=== PATIENT | male | born 1945 | race Caucasian/White ===

== ENCOUNTER 2023-03-26 17:45 | Inpatient (IN) | payer MEDICARE, SELFPAY ==
--- NOTE | ~2023-03-26 | US_ITS ---
EXAMINATION: US VENOUS ULTRASOUND WITH DOPPLER LOWER EXTREMITY, BILATERAL CLINICAL INFORMATION: Bilateral lower extremity edema. COMPARISON: None available. TECHNIQUE: Ultrasound of the deep veins is performed from the hip to the calf with compression sonography and color and pulse Doppler assessment. Spectral analysis with color-flow imaging is performed. FINDINGS: RIGHT: There is normal venous compression and respiratory variation and augmented flow. The visualized common femoral vein, superficial femoral vein, profunda femoral vein, popliteal vein, and the trifurcation region shows no evidence of deep venous thrombosis. There is no significant popliteal fossa cyst. LEFT: There is normal venous compression and respiratory variation and augmented flow. The visualized common femoral vein, superficial femoral vein, profunda femoral vein, popliteal vein, and the trifurcation region shows no evidence of deep venous thrombosis. There is no significant popliteal fossa cyst. If the patient's symptoms persist, followup ultrasound in 5 days 7 days might be of value to exclude proximal propagation from a non-visualized calf vein. US/US venous duplex LE BI IMPRESSION: No DVT demonstrated in the bilateral lower extremities.
--- NOTE | ~2023-03-26 | XR_ITS ---
EXAMINATION: XR CHEST CLINICAL INFORMATION: Shortness of breath COMPARISON: None available. TECHNIQUE: Frontal view of the chest was obtained. FINDINGS: The heart is enlarged. There is no gross evidence of CHF. There is increased density in the retrocardiac region which could represent an infiltrate. A small left effusion could be present. The film is technically suboptimal. When the patient is stable, a PA and lateral film would be of value. XR/XR chest 1V IMPRESSION: 1. Cardiomegaly. 2. Retrocardiac density which could represent an infiltrate. PA and lateral film would be of value when the patient is stable.
[2023-03-26 17:50] VITALS: BP 170/76; BP 177/70; PULSE 72; PULSE 78; RESP 20; TEMP 36.7; O2SAT 96; O2SAT 98; BMI 45.8
--- NOTE | 2023-03-26 18:01 | ECG_ITS ---
Test Reason : LOWER EXTRMITY SWELLING Blood Pressure : / mmHG Vent. Rate : 072 BPM Atrial Rate : 000 BPM P-R Int : 000 ms QRS Dur : 098 ms QT Int : 400 ms P-R-T Axes : 000 007 009 degrees QTc Int : 438 ms Sinus with very long DE interval Low voltage QRS Cannot rule out Anterior infarct , age undetermined Abnormal ECG No previous ECGs available Referred By: Anupama Kan Electronically Signed By:ANTWON SAVAGE
--- NOTE | 2023-03-26 18:01 | ED_ITS ---
HPI - General Adult General Chief complaint: Wound/Laceration Stated complaint: COVID, open sore on L ankle Time Seen by Provider: 03/26/23 17:52 Source: patient, EMS, RN notes reviewed and old records reviewed Mode of arrival: EMS History of Present Illness HPI narrative: 78-year-old male with a past medical history of diabetes, cauda equina, HTN, CHF, COPD, AFib on Eliquis, COVID-19 positive 6 days ago, presenting to the ED via EMS complaining of acute on chronic bilateral LE edema/swelling and open wounds worsening over the past 3 days. Admits to swelling x years. Also reports SOB. Most history obtained from who reports patient has been generally weak/fatigued with difficulty ambulating secondary to LE swelling/weakness over the past few days. Also reports they self stopped Bumex over the past 2 weeks due to patient's urinary frequency. Denies chest pain, abdominal pain, nausea/vomiting, fever/chills. Patient is poor historian Onset (ago): day(s) Related Data Allergies Allergy/AdvReac Type Severity Reaction Status Date / Time No Known Allergies Allergy Verified 03/26/23 17:50 Review of Systems 2 Review of Systems: Constitutional: No Fever, No Chills, No Fatigue, No Malaise ENT/Mouth: No Ear Pain, No Nasal Congestion, No sore throat, No Rhinorrhea, No Swallowing Difficulty Cardiovascular: No Chest Pain, +SOB, + Edema, No Palpitations Respiratory: + Cough, No Wheezing, + Dyspnea Gastrointestinal: No Nausea, No Vomiting, No Abdominal pain Musculoskeletal: No joint pain, No Myalgias, No Joint Swelling Skin: + Skin Lesions, No rash Neuro: No Weakness Yes all other systems are reviewed and are negative Constitutional: Constitutional: Reports as per [facility] Past Medical History Attestation statement: The following information was validated with the patient. Source: old records reviewed Onset Date is defined in the Problem List Problems that require an onset date and time if occurred within 24 hrs of arrival to the ED Aortic Dissection and Rupture; Neurologic impairment; Cardiopulmonary Arrest; Endotracheal Intubation; Insertion or Replacement of Mechanical Circulatory Assist Device Social History Social History Advance Directives: No Advance Directives Information Provided: Yes Physical Exam ED Vital Signs: Vital Signs - 24 hr 03/26/23 17:50 03/26/23 18:27 Temperature 98.1 F Pulse Rate 78 80 Respiratory Rate 20 18 Blood Pressure 177/70 H Pulse Oximetry 98 Oxygen Delivery Method Room Air BMI result Body Mass Index 45.8 Const General: cooperative, alert and awake Orientation/consciousness: patient oriented x3 HENMT Head: Yes normal to inspection and Yes atraumatic Ears: hearing grossly normal bilaterally General nose exam: Normal external nose present Face and sinus: Yes normal facial exam Eyes General: appearance normal, both eyes and all related structures EOM: EOMs intact bilaterally Neck Neck: Yes normal visual inspection and Yes no meningeal signs Resp Effort & Inspection: labored and no respiratory distress Auscultation: diminished lung sounds bilateral in the lower lung angulo Cardio Rate: regular rate Heart sounds: S1 normal heart sound present and S2 normal heart sound present GI Inspection: Yes normal to inspection Palpation (GI): Soft to palpation, nontender, no guarding and not rigid General: Yes no CVA tenderness Back/Spine/Pelvis Back: no CVA tenderness Skin Rashes: no rashes Neuro General: patient oriented x3, tone normal and no meningeal signs Cranial nerves: Yes CN's II-XII intact bilaterally Gait exam (Neuro): Normal gait present Extrem Other: Please refer to images above. Bilateral LE pitting edema with overlying erythema and venous stasis changes. Wounds noted as depicted to left anterior young and right lateral malleolus. No fluctuance/induration or active drainage. Neurovascularly intact. No crepitus Course Course Course Narrative: -no leukocytosis, + PEPE with a creatinine of 1.44 (baseline 0.8) > suspect from fluid overload. BNP 83 -COVID-19 positive -initial troponin 49.4 > will obtain 3 hour repeat -1900--ED care transferred to HUMBLE Larry pending remaining labs, CXR, venous duplex ultrasound and anticipated admission Medications Administered Discontinued Medications Generic Name Dose Route Start Last Admin Trade Name Freq PRN Reason Stop Dose Admin Albuterol Sulfate 2 puff 03/26/23 18:10 03/26/23 18:28 Albuterol Sulfate 90 Mcg 8 Gm Inhaler INHALE 03/26/23 18:11 2 puff ONCE ONE Administration Medical Decision Making Medical Decision Making [facility] Narrative: 78-year-old male with a past medical history of diabetes, cauda equina, HTN, CHF, COPD, AFib on Eliquis, COVID-19 positive 6 days ago, presenting to the ED via EMS complaining of acute on chronic bilateral LE edema/swelling and open wounds worsening over the past 3 days. Also reports +SOB, weakness/fatigue, difficulty ambulating & Bumex noncompliance. On exam vital signs stable, tachypneic, appears short of breath, diminished lung sounds bibasilarly, bilateral LE pitting edema with overlying erythema and wounds as noted above. Please refer to images. Concern for continued COVID-19/viral illness vs pneumonia vs CHF vs cellulitis. Lower suspicion for DVT, osteomyelitis or PE at this time. Symptoms atypical for ACS Plan: EKG, labs, CXR, viral testing, ED bronch protocol, venous duplex ultrasound, anticipated admission Please refer to course for remaining clinical decision making, interpretation of labs/imaging results, and discussions with consultants and/or family members. Differential Diagnosis Differential Diagnoses: The differential diagnosis associated with the presentation includes As above Admission/Observation Consideration of admission/observation: Escalation of care including admission/observation considered Lab Data MDM Lab Attestation statement: I reviewed the patient's lab results. 03/26/23 18:22 03/26/23 18:22 Labs: Lab Results 03/26/23 Range/Units 18:22 WBC 10.2 (4.8-10.8) X10*3/uL RBC 5.68 (4.60-5.80) X10*6/uL Hgb 15.9 (14.0-18.0) g/dl Hct 49.3 (42.0-52.0) % MCV 86.8 (80.0-98.0) fL MCH 28.0 (27.0-33.0) pg MCHC 32.3 (31.0-36.0) g/dl RDW 15.0 (11.0-16.0) % Plt Count 246 (160-400) X10*3/uL MPV 10.8 (9.4-12.4) fL Immature Gran % (Auto) 2.1 H (0.0-0.4) % Neut % (Auto) 66.7 (45-73) % Lymph % (Auto) 19.8 L (20-40) % [place] % (Auto) 7.1 (2-11) % Eos % (Auto) 3.7 (0-4) % Baso % (Auto) 0.6 (0-2) % Lymph # (Auto) 2.0 (1.2-4.9) X10*3/uL [place] # (Auto) 0.7 (0.1-1.2) X10*3/uL Eos # (Auto) 0.4 (0.0-0.4) X10*3/uL Baso # (Auto) 0.1 (0.0-0.2) X10*3/uL Abs Immat Gran (auto) 0.21 H (0.00-0.03) X10*3/uL Absolute Neuts (auto) 6.8 (2.0-8.3) x10*3/uL Absolute Nucleated RBC 0.000 (0.0-0.012) X10*3/uL Nucleated RBC % (auto) 0.0 (0.0-0.2) /100WBC PT 13.2 (11.1-13.3) SEC INR 1.1 (0.9-1.1) Sodium 139 (135-145) mmol/L Potassium 4.5 (3.3-5.1) mmol/L Chloride 101 (96-108) mmol/L Carbon Dioxide 28 (22-29) mmol/L Anion Gap 15 (12-20) BUN 19 H (9-16) mg/dL Creatinine 1.44 H (0.5-1.4) mg/dL Estim Creat Clear Calc 58.0 Estimated GFR 47 Random Glucose 263 H (60-115) mg/dL Lactic Acid 1.8 (0.5-2.0) mmol/L Calcium 9.8 D (8.4-10.2) mg/dL Magnesium 1.8 (1.6-2.6) mg/dL Total Bilirubin 0.6 (0.0-1.0) mg/dL Direct Bilirubin 0.2 (0.0-0.5) mg/dL AST 26 (5-37) U/L ALT 28 (0-40) U/L Alkaline Phosphatase 206 H (39-117) U/L Troponin I High Sens 49.4 H (<3.5-35.0) ng/L C-Reactive Protein 0.44 (< or = 0.50) mg/dL B-Natriuretic Peptide 83 (<100) pg/mL Total Protein 8.1 H (6.5-8.0) g/dL Albumin 3.9 (3.5-5.0) g/dL COVID-19 ([facility]) Positive A (Negative) COVID-19 Clin Com See Note Influenza Type A ([facility]) Negative (Negative) Influenza Type B ([facility]) Negative (Negative) Influenza A & B Note See Note Independent Interpretation I performed an independent interpretation of an: EKG, Plain X-Ray and Ultrasound Radiology Impression Discussion of test interpretation with radiology: I have reviewed the radiologist's reading. Independent Historian Clinical information obtained from an independent historian. History obtained from or confirmed by: EMS External Record Review External record reviewed: Inpatient record, Office record, Outpatient record, Prior outpatient labs, Prior outpatient radiology, Primary care record and Outside ED record Tests considered The following testing was considered but not selected: As above Discharge Plan Discharge Clinical Impression: PEPE (acute kidney injury), COVID-19, Pedal edema Patient Disposition: Still a Patient
[2023-03-26 18:27] VITALS: PULSE 80; RESP 18; O2SAT 94
[2023-03-26] MEDS: Albuterol Sulfate 90 MCG 8 GM INHALER 2 PUFF INHALE (18:28)
[2023-03-26 18:32] LABS: MANUAL DIFF FLAG NO
--- NOTE | 2023-03-26 18:32 | PC.NURSE ---
20G placed in left ac, labs obtained and sent to lab at this time. respiratory at bedside.
[2023-03-26 18:36] LABS: Basophils Absolute Auto 0.1 X10*3/uL (0.0-0.2); Basophils Percent Auto 0.6 % (0-2); Eosinophils Absolute Auto 0.4 X10*3/uL (0.0-0.4); Eosinophils Percent Auto 3.7 % (0-4); Hematocrit 49.3 % (42.0-52.0); Hemoglobin 15.9 g/dl (14.0-18.0); Imm Gran Abs Auto 0.21 X10*3/uL (0.00-0.03); Imm Gran Pct Auto 2.1 % (0.0-0.4); Lymphocytes Percent Auto 19.8 % (20-40); Mean Corpuscular HGB Conc 32.3 g/dl (31.0-36.0); Mean Corpuscular Volume 86.8 fL (80.0-98.0); Mean Platelet Volume 10.8 fL (9.4-12.4); Monocytes Absolute Auto 0.7 X10*3/uL (0.1-1.2); Monocytes Percent Auto 7.1 % (2-11); Neutrophils Absolute Auto 6.8 x10*3/uL (2.0-8.3); Neutrophils Percent Auto 66.7 % (45-73); Platelet Count 246 X10*3/uL (160-400); Red Blood Count 5.68 X10*6/uL (4.60-5.80); White Blood Count 10.2 X10*3/uL (4.8-10.8)
[2023-03-26 18:44] LABS: INTERNATIONAL NORM RATIO 1.1 (0.9-1.1); Prothrombin Time 13.2 SEC (11.1-13.3)
[2023-03-26 18:45] LABS: Lactic Acid 1.8 mmol/L (0.5-2.0)
[2023-03-26 18:47] LABS: COVID-19 Test Positive (Negative); IDNOW Serial# 58CA691E
[2023-03-26 18:51] LABS: Alanine Aminotransferase 28 U/L (0-40); Albumin Level 3.9 g/dL (3.5-5.0); Alkaline Phosphatase 206 U/L (39-117); Anion Gap 15 (12-20); Aspartate Amino Transferase 26 U/L (5-37); Bilirubin Direct 0.2 mg/dL (0.0-0.5); Bilirubin Total 0.6 mg/dL (0.0-1.0); Blood Urea Nitrogen 19 mg/dL (9-16); C Reactive Protein 0.44 mg/dL (< or = 0.50); Calcium 9.8 mg/dL (8.4-10.2); Carbon Dioxide 28 mmol/L (22-29); Chloride 101 mmol/L (96-108); Estimated Glomerular Filt Rate 47; Glucose Random 263 mg/dL (60-115); Magnesium 1.8 mg/dL (1.6-2.6); Potassium 4.5 mmol/L (3.3-5.1); Sodium 139 mmol/L (135-145); Total Protein 8.1 g/dL (6.5-8.0)
[2023-03-26 18:52] LABS: IDNOW Serial# 6674DD1D; Influenza A Negative (Negative); Influenza B2 Negative (Negative)
[2023-03-26 18:54] LABS: B Type Natriuretic Peptide 83 pg/mL (<100)
[2023-03-26 18:56] LABS: Troponin-I High Sensitivity 49.4 ng/L (<3.5-35.0)
[2023-03-26 19:11] LABS: Erythrocyte Sedimentation Rate 13 MM/HR (0-15)
[2023-03-26] MEDS: cefTRIAXone sodium 1 GM in 0.9 % Sodium Chloride 50 ML IV (19:26)
[2023-03-26 20:00] VITALS: BP 156/48; PULSE 63; RESP 20; TEMP 36.5; O2SAT 95
--- NOTE | 2023-03-26 20:21 | P.HPHOSP_ITS ---
History of Present Illness Date of Service: 03/26/23 <HUMBLE Mirza - Last Filed: 03/26/23 21:47> Attending physician on admission: Oj Templeton <HUMBLE Mirza - Last Filed: 03/26/23 21:47> Chief Complaint: Generalized weakness, COVID+, leg wounds <HUMLBE Mirza - Last Filed: 03/26/23 21:47> Pt is a 78-year-old male with a PMH significant for?CHF unspecified, HTN, HLD, paroxysmal AFib on Eliquis, cauda equina syndrome (June 2022), chronic lower back pain on chronic opioids, and insulin-dependent diabetes type 2 who presents to the ED with?with multiple complaints. Patient's chief complaint is of leg wounds and pain. Patient with a history of insulin-dependent diabetes type 2, he has had lower leg wounds especially on his shins and ankles on and off for the past few years. These have been treated by VNA, but apparently patient has run out of VNA services for now. Patient developed a wound on his right lateral malleolus around 1 week ago and patient has been complaining of pain since that. Six days ago patient tested positive for COVID and at direction of his PCP was treated at home. Patient complains of increased shortness of breath, productive cough, and generalized weakness and fatigue. Patient has becomes fatigued the past few days and he has now no longer able to ambulate on his own. Previously ambulated with the assistance of a walker. Patient states he has been eating and drinking normally. Patient is prescribed Bumex for CHF, but stopped taking it on his own around 2 weeks ago due to constant urination and difficulty controlling his bladder. Denies chest pain/pressure, palpitations. Denies fever, chills, nausea, vomiting, abdominal pain. No headache. In the ED pt was hypertensive up to 177/70, otherwise vitals WNL. Labs were significant for BUN 19, creatinine 1.44, random glucose 263, alk-phos 206, and initial troponin 49.4. No leukocytosis. Stable H&H. No electrolyte abnormalities. BNP 83. Patient tested positive for COVID. CXR showed cardiomegaly and retrocardiac density which could represent an infiltrate. Venous duplex found no DVT demonstrated?inthe bilateral lower extremities. EKG demonstrated accelerated junctional rhythm without evidence of ST elevations or depressions. Pt was treated with albuterol, and ceftriaxone. Pt will be admitted to the hospital for treatment and further evaluation of PEPE, community-acquired pneumonia, and generalized weakness in the setting of COVID infection. <HUMBLE Mirza - Last Filed: 03/26/23 21:47> Review of Systems 2 Review of Systems: Increasing SOB, ZEPEDA Productive cough Generalized weakness, unable to ambulate for past few days Right ankle wound Lower leg pain Denies chest pain/pressure, palpitations No fever, chills, nausea, vomiting, abdominal pain <HUMBLE Mirza - Last Filed: 03/26/23 21:47> [facility] Medical History: Medical History (Updated 03/26/23 @ 21:24 by HUMBLE Mirza) Paroxysmal A-fib Cauda equina compression CHF (congestive heart failure) <HUMBLE Mirza - Last Filed: 03/26/23 21:47> Social History: Social History Advance Directives: No Advance Directives Information Provided: Yes <HUMBLE Mirza - Last Filed: 03/26/23 21:47> Meds Allergies/Adverse reactions: Allergies Allergy/AdvReac Type Severity Reaction Status Date / Time No Known Allergies Allergy Verified 03/26/23 17:50 <HUMBLE Mirza - Last Filed: 03/26/23 21:47> Home medications: Home Medications Medication Instructions Recorded Confirmed Last Taken Type apixaban 5 mg tablet (Eliquis) 5 mg PO BID 03/26/23 03/26/23 03/26/23 History atorvastatin 80 mg tablet 80 mg PO DAILY 03/26/23 03/26/23 03/26/23 History cholecalciferol (vitamin D3) 25 25 mcg PO DAILY 03/26/23 03/26/23 03/26/22 History mcg (1,000 unit) tablet citalopram 20 mg tablet 20 mg PO DAILY 03/26/23 03/26/23 03/26/23 History cyclobenzaprine 5 mg tablet 5 mg PO BID PRN muscle spasm 03/26/23 03/26/23 Unknown History docusate sodium 50 mg capsule 50 mg PO Q6H 03/26/23 03/26/23 Unknown History eplerenone 50 mg tablet 50 mg PO DAILY 03/26/23 03/26/23 03/26/23 History fluticasone fur. 100 mcg-umeclid 1 ea inhalation DAILY 03/26/23 03/26/23 03/26/23 History 62.5 mcg-vilant 25 mcg inhalat.powder (Trelegy Ellipta) gabapentin 600 mg tablet 600 mg PO BID 03/26/23 03/26/23 03/26/23 History insulin regular hum U-500 conc 500 45 unit subcut BID 03/26/23 03/26/23 03/26/23 History unit/mL(3 mL) subcut pen (Humulin R U-500 (Conc) Insulin Kwikpen) losartan 50 mg tablet 50 mg PO DAILY 03/26/23 03/26/23 03/26/23 History metoprolol succinate 50 mg 25 mg PO DAILY 03/26/23 03/26/23 03/26/23 History tablet,extended release 24 hr nystatin 100,000 unit/gram topical 1 appl topical BID 03/26/23 03/26/23 03/26/23 History powder omeprazole 20 mg capsule,delayed 20 mg PO DAILY 03/26/23 03/26/23 03/26/23 History release oxycodone 10 mg tablet 10 mg PO Q6H pain 03/26/23 03/26/23 03/26/23 History <HUMBLE Mirza - Last Filed: 03/26/23 21:47> Physical Exam 2 Vital Signs and Narrative: Vital Signs: Last Vital Signs Temp 98.1 F 03/26/23 17:50 Pulse 80 03/26/23 18:27 Resp 18 03/26/23 18:27 BP 177/70 H 03/26/23 17:50 Pulse Ox 98 03/26/23 17:50 O2 Del Method Room Air 03/26/23 17:50 BMI result Body Mass Index 45.8 <HUMBLE Mirza - Last Filed: 03/26/23 21:47> Constitutional: Alert, in no acute distress. Mental Status: Oriented to person, place and time. Eyes: Pupils are equal, round, and reactive to light. Ear, Nose, and Throat: Oropharynx clear, mucous membranes moist. Ears and nose without deformities. Trachea midline. Respiratory: Diffuse expiratory wheezing bilaterally. Cardiovascular: S1, S2 regular. No murmurs, rubs, or gallops. Gastrointestinal: Abdomen soft, non-tender, non-distended, obese. Normal bowel sounds. Neurologic: Cranial nerves II-XII are grossly intact bilaterally. No focal neurological deficits. Moves all extremities spontaneously. Skin: Warm, dry. Musculoskeletal: No cyanosis or clubbing. Extremities: Trace bilateral edema. Chronic venous stasis changes. Small open wound to the left anterior young. Wound to left lateral malleolus. No obvious signs of infection or drainage. As depicted below. Psychiatric: Normal mood and affect. <HUMBLE Mirza - Last Filed: 03/26/23 21:47> Results Labs CBC and Chem 7: 03/26/23 18:22 03/26/23 18:22 <HUMBLE Mirza - Last Filed: 03/26/23 21:47> Labs: Laboratory Results - last 24 hr 03/26/23 18:22 MCV 86.8 MCH 28.0 MCHC 32.3 RDW 15.0 Plt Count 246 MPV 10.8 Immature Gran % (Auto) 2.1 H Neut % (Auto) 66.7 Lymph % (Auto) 19.8 L [place] % (Auto) 7.1 Eos % (Auto) 3.7 Baso % (Auto) 0.6 Lymph # (Auto) 2.0 [place] # (Auto) 0.7 Eos # (Auto) 0.4 Baso # (Auto) 0.1 Abs Immat Gran (auto) 0.21 H Absolute Neuts (auto) 6.8 Absolute Nucleated RBC 0.000 Nucleated RBC % (auto) 0.0 ESR 13 PT 13.2 INR 1.1 Anion Gap 15 Estim Creat Clear Calc 58.0 Estimated GFR 47 Random Glucose 263 H Lactic Acid 1.8 Calcium 9.8 D Magnesium 1.8 Total Bilirubin 0.6 Direct Bilirubin 0.2 AST 26 ALT 28 Alkaline Phosphatase 206 H C-Reactive Protein 0.44 B-Natriuretic Peptide 83 Total Protein 8.1 H Albumin 3.9 COVID-19 ([facility]) Positive A COVID-19 Clin Com See Note Influenza Type A ([facility]) Negative Influenza Type B ([facility]) Negative Influenza A & B Note See Note <HUMBLE Mirza - Last Filed: 03/26/23 21:47> Assessment and Plan (1) COVID-19: Status: Acute <HUMBLE Mirza - Last Filed: 03/26/23 21:47> (2) PEPE (acute kidney injury): Status: Acute <HUMBLE Mirza - Last Filed: 03/26/23 21:47> Pt is a 78-year-old male with a PMH significant for?CHF unspecified, HTN, HLD, paroxysmal AFib on Eliquis, cauda equina syndrome (June 2022), chronic lower back pain on chronic opioids, and insulin-dependent diabetes type 2 who presents to the ED with?with multiple complaints. Patient's chief complaint is of leg wounds and pain. Also recently tested positive for COVID with SOB, generalized weakness, and productive cough. Pt will be admitted to the hospital for treatment and further evaluation of PEPE, community-acquired pneumonia, and generalized weakness in the setting of COVID infection. Generalized weakness in the setting of COVID infection with superimposed pnuemonia Tested positive for COVID 6 days ago CXR with evidence of developing infiltrate Pt with SOB, productive cough, fatigue, generalized weakness and inability to ambulate at home Pt not hypoxic Pt does not meet sepsis criteria: no fever, tachypnea, tachycardia, or leukocytosis; lactic acid WNL at 1.8 Will treat with ceftriaxone and azithromycin, started 03/26/2023 Duonebs scheduled and prn PT consult PEPE Pt's creatinine 1.44 at time of presentation Most likely secondary to reduced po intake in setting of COVID and generalized weakness Pt given 500 ml of IVF Hold home Bumex, losartan Will follow BMP Lower leg wounds Wound care consult Analgesics for pain management CHF unspecified Does not appear in acute exacerbation BNP not elevated, no pleural effusion or pulmonary edema on CXR Will hold Bumex for now d/t PEPE Paroxysmal AFib Continue Eliquis, metoprolol Chronic lower back pain Continue oxycodone Insulin-dependent diabetes type 2 Sliding-scale insulin HTN Hold losartan d/t PEPE HLD Continue statin GERD PPI Obesity class III Weight loss encouraged DNR/DNI Attending:?Dr. Templeton DVT Prophylaxis: On Eliquid Pt will require a hospitalization of at least two nights for treatment of?treatment and further evaluation of PEPE, community-acquired pneumonia, and generalized weakness in the setting of COVID infection. Given patient's significant comorbidities, including insulin-dependent diabetes, CHF, paroxysmal AFib, and morbid obesity will require hospitalized administration of IV antibiotics, specialist consultation, and close monitoring. <HUMBLE Mirza - Last Filed: 03/26/23 21:47> Pt is a 78-year-old male with a PMH significant for?CHF unspecified, HTN, HLD, paroxysmal AFib on Eliquis, cauda equina syndrome (June 2022), chronic lower back pain on chronic opioids, and insulin-dependent diabetes type 2 who presents to the ED with?with multiple complaints. Patient's chief complaint is of leg wounds and pain. Also recently tested positive for COVID with SOB, generalized weakness, and productive cough. Pt will be admitted to the hospital for treatment and further evaluation of PEPE, community-acquired pneumonia, and generalized weakness in the setting of COVID infection. Generalized weakness in the setting of COVID infection with superimposed pnuemonia Tested positive for COVID 6 days ago CXR with evidence of developing infiltrate Pt with SOB, productive cough, fatigue, generalized weakness and inability to ambulate at home Pt not hypoxic Pt does not meet sepsis criteria: no fever, tachypnea, tachycardia, or leukocytosis; lactic acid WNL at 1.8 Will treat with ceftriaxone and azithromycin, started 03/26/2023 Duonebs scheduled and prn PT consult PEPE Pt's creatinine 1.44 at time of presentation Most likely secondary to reduced po intake in setting of COVID and generalized weakness Pt given 500 ml of IVF Hold home Bumex, losartan Will follow BMP Lower leg wounds Wound care consult Analgesics for pain management CHF unspecified Does not appear in acute exacerbation BNP not elevated, no pleural effusion or pulmonary edema on CXR Will hold Bumex for now d/t PEPE Paroxysmal AFib Continue Eliquis, metoprolol Chronic lower back pain Continue oxycodone Insulin-dependent diabetes type 2 Sliding-scale insulin HTN Hold losartan d/t PEPE HLD Continue statin GERD PPI Obesity class III Weight loss encouraged DNR/DNI Attending:?Dr. Templeton DVT Prophylaxis: On Eliquis Pt will require a hospitalization of at least two nights for treatment of?treatment and further evaluation of PEPE, community-acquired pneumonia, and generalized weakness in the setting of COVID infection. Given patient's significant comorbidities, including insulin-dependent diabetes, CHF, paroxysmal AFib, and morbid obesity will require hospitalized administration of IV antibiotics, specialist consultation, and close monitoring. <Oj Templeton MD - Last Filed: 03/26/23 21:49> Quality Stroke Does the patient have a stroke diagnosis?: No <HUMBLE Mirza - Last Filed: 03/26/23 21:47> VTE Prior VTE?: No <HUMBLE Mirza - Last Filed: 03/26/23 21:47> VTE Risk Level:: Medical - moderate - high <HUMBLE Mirza - Last Filed: 03/26/23 21:47> VTE Device Contraindication: Treatment Not Indicated <HUMBLE Mirza - Last Filed: 03/26/23 21:47> VTE Drug Contraindication: N/A - Med Ordered <HUMBLE Mirza - Last Filed: 03/26/23 21:47>
[2023-03-26 20:43] LABS: Glucose, Whole Blood 259 mg/dL (60-115)
--- NOTE | 2023-03-26 21:38 | PHA.MEDREC ---
Pharmacy Consult ? Medication Reconciliation Pharmacy has completed the medication reconciliation. Patients had list of medications that matched claim history. She reported that Gabapentin is BID instead if TID, Losartan is 1 tablet instead of 2. She also reported pt takes oxycodone q6h scheduled and takes a docusate with each dose. Diane Jacobson CPhT
[2023-03-26] MEDS: Acetaminophen 325 MG TABLET 650 MG PO (21:43)
[2023-03-26] MEDS: oxyCODONE HCl Immed Release 5 MG TABLET 10 MG PO (21:44)
[2023-03-26] MEDS: Azithromycin 500 MG in 0.9 % Sodium Chloride 250 ML 125 MG IV (21:49)
[2023-03-26] MEDS: Insulin Lispro 100 UNIT/ML 3 ML VIAL SUBCUT (21:55)
[2023-03-26 21:57] LABS: Troponin-I High Sensitivity 52.2 ng/L (<3.5-35.0)
[2023-03-26 21:57] LABS: Appearance Urine Clear; Color Urine Yellow; Glucose Urine UA 250 mg/dL (Negative); Leukocyte Esterase Urine Negative (Negative); Nitrite Urine Negative (Negative); PH 5.5 (5.0-9.0); Specific Gravity - Urine >= 1.030 (1.005-1.025); UMIC TRIGGER UACC YES; Urine Blood Negative (Negative); Urine Ketones Trace mg/dL (Negative); Urine Protein 30 (1+) mg/dL (Neg-Trace)
[2023-03-26 22:02] LABS: Bacteria Urine None Seen (None Seen); Hyaline Casts Urine 0-2 /LPF (0-2); RBC Urine 0-2 /HPF (0-2); Squamous Epithelial Cell Urine 0-2 /HPF (0-2); WBC Urine 0-5 /HPF (0-5)
[2023-03-26] MEDS: Apixaban 5 MG TABLET PO (22:16)
[2023-03-26] MEDS: Gabapentin 600 MG TABLET PO (22:16)
--- NOTE | 2023-03-26 22:29 | PC.NURSE ---
pt medicated per MAR- Received 500ml bolus of NS per order, pt rec 6 units humalog for FSBS 252. pt has been able to tolerate PO, denies N/V/D. pt has a minimally productive cough, Spo2 95-97 on RA. pt provided with oxycodone and APAP for analgesia. pt was able to provide urine sample, linens were changed and pt was repositioned in bed. Plan is for admission to med surg for further eval and tx on chronic lower extremity wounds. pt at bedside verbalizes understanding. call reynolds within reach
[2023-03-27] VITALS (12 sets, daily range): BP systolic 139–177; BP diastolic 56–81; PULSE 56–77; RESP 14–20; TEMP 36.3–37; O2SAT 91–96
--- NOTE | 2023-03-27 00:11 | PC.NURSE ---
pt assisted with using urinal. resting comfortably on stretcher, no apparent distress. pt offers no current complaints. call reynolds within reach
[2023-03-27] MEDS: Morphine Sulfate Immed Release 15 MG TABLET PO (01:19)
--- NOTE | 2023-03-27 03:08 | MHC.EDTECH ---
Late Entry, This tech took over care of patient at 0100AM, hourly rounds and vitals completed, BP elevated @ 177/66 RN was made aware. Ice water giving per request of patient, patient is resting comfortably at this time and call reynolds in reach.[place] list completed by previous shift.
--- NOTE | 2023-03-27 04:17 | PC.NURSE ---
this rn assumed care of pt from em @ 0300. pt in ed 14. lights dimmed pt assisted with use of urinal by this rn
[2023-03-27] MEDS: oxyCODONE HCl Immed Release 5 MG TABLET 10 MG PO ×4 (04:36→21:17)
[2023-03-27] MEDS: Docusate Sodium 100 MG/10 ML LIQUID 50 MG PO ×4 (04:36→21:17)
[2023-03-27 06:25] LABS: MANUAL DIFF FLAG NO
[2023-03-27 06:29] LABS: Basophils Absolute Auto 0.1 X10*3/uL (0.0-0.2); Basophils Percent Auto 0.8 % (0-2); Eosinophils Absolute Auto 0.3 X10*3/uL (0.0-0.4); Eosinophils Percent Auto 2.7 % (0-4); Hematocrit 43.2 % (42.0-52.0); Hemoglobin 13.9 g/dl (14.0-18.0); Imm Gran Abs Auto 0.19 X10*3/uL (0.00-0.03); Imm Gran Pct Auto 1.9 % (0.0-0.4); Lymphocytes Absolute Auto 2.8 X10*3/uL (1.2-4.9); Lymphocytes Percent Auto 28.1 % (20-40); Mean Corpuscular HGB Conc 32.2 g/dl (31.0-36.0); Mean Corpuscular Hemoglobin 27.9 pg (27.0-33.0); Mean Corpuscular Volume 86.6 fL (80.0-98.0); Mean Platelet Volume 10.9 fL (9.4-12.4); Monocytes Absolute Auto 0.7 X10*3/uL (0.1-1.2); Monocytes Percent Auto 6.7 % (2-11); Neutrophils Absolute Auto 6.1 x10*3/uL (2.0-8.3); Neutrophils Percent Auto 59.8 % (45-73); Platelet Count 238 X10*3/uL (160-400); Red Blood Count 4.99 X10*6/uL (4.60-5.80); Red Cell Distribution Width 14.9 % (11.0-16.0); White Blood Count 10.1 X10*3/uL (4.8-10.8)
--- NOTE | 2023-03-27 06:32 | MHC.EDTECH ---
Hourly rounds and vitals completed, BP is elevated 170/69 RN aware, Patient urinated 250MLS in urinal,patient repositioned and pk-care giving,call reynolds in reach
--- NOTE | 2023-03-27 06:34 | PC.NURSE ---
this rn made dr nichole aware of bp of 170/[address] nichole give am metoprolol dose at this time. this rn reach back back to md dr nichole repeated to give med now
[2023-03-27] MEDS: Omeprazole 20 MG CAPSULE.DR PO (06:40)
[2023-03-27] MEDS: Metoprolol Succinate ER 25 MG TAB.ER.24H PO (06:40)
[2023-03-27 06:41] LABS: Anion Gap 13 (12-20); Blood Urea Nitrogen 15 mg/dL (9-16); Calcium 8.8 mg/dL (8.4-10.2); Carbon Dioxide 27 mmol/L (22-29); Chloride 103 mmol/L (96-108); Creatinine Clr Calc Pharmacy 81.9; Estimated Glomerular Filt Rate > 60; Glucose Random 219 mg/dL (60-115); Potassium 4.2 mmol/L (3.3-5.1); Sodium 139 mmol/L (135-145)
[2023-03-27 07:32] LABS: Glucose, Whole Blood 218 mg/dL (60-115)
[2023-03-27] MEDS: Albuterol/Iprat 2.5/0.5MG 3 ML AMPUL.NEB INHALE ×4 (07:59→19:20)
[2023-03-27] MEDS: Fluticasone/Umeclidinium/Vilanterol 100/62.5/25 BLST.W.DEV 1 PUFF INHALE (07:59)
[2023-03-27] MEDS: Apixaban 5 MG TABLET PO ×2 (08:54→21:17)
[2023-03-27] MEDS: Gabapentin 600 MG TABLET PO ×2 (08:54→21:17)
[2023-03-27] MEDS: Cholecalciferol (Vitamin D3) 25 MCG TABLET PO (08:54)
[2023-03-27] MEDS: Insulin Lispro 100 UNIT/ML 3 ML VIAL SUBCUT ×4 (08:54→21:17)
[2023-03-27] MEDS: Atorvastatin Calcium 80 MG TABLET PO (08:54)
[2023-03-27] MEDS: Escitalopram Oxalate 10 MG TABLET PO (08:54)
[2023-03-27] MEDS: 0.9 % Sodium Chloride Flush 3 ML SYRINGE IVFLUSH ×2 (09:01→15:40)
--- NOTE | 2023-03-27 09:10 | PC.NURSE ---
PT at bedside evaluating patient.
--- NOTE | 2023-03-27 09:52 | PC.NURSE ---
Pt's updated via phone, okay per patient.
--- NOTE | 2023-03-27 10:23 | PC.NURSE ---
Verbal report given to Regan BRYSON in ED overflow unit, plan to transfer pt.
--- NOTE | 2023-03-27 10:29 | PC.NURSE ---
received report from ADELAIDE Luke. pt will be transferred to [facility] which is a private room and is appropriate for his COVID+ status.
--- NOTE | 2023-03-27 11:00 | PC.NURSE ---
assumed care of this pt at 1045. pt a+o x3, vs at baseline, he reports 3/10 BLL pain. both are red, swollen and tender to touch, small amount of serous drainage present. pt was transferred to hospital bed. urinal and call reynolds in close reach. COVID precaution in place. no complaints at his time.
--- NOTE | 2023-03-27 11:09 | MHC.EDTECH ---
PT arrived to ed overflow. Patient was given fresh ice water, visitor present
--- NOTE | 2023-03-27 11:30 | MHC.EDTECH ---
poc = 230 rn aware
[2023-03-27 11:59] LABS: Glucose, Whole Blood 230 mg/dL (60-115)
--- NOTE | 2023-03-27 12:34 | MHC.EDTECH ---
Pt ate 100% of his lunch and 240cc of fluids. Visitor present in the room
--- NOTE | 2023-03-27 14:05 | MHC.CM.PN ---
IMM 03/27/23, Pt lives with his , he did have [facility] services for wound care from [facility], and his PCP recently told them that he now needs more care than what [facility]NA can provide for his wound, accord to his who was bedside. HCP is , Katie, PCP confirmed: Rufus Florivette. Pt. has been to [facility] before at rehab and it was not a good experience. He was also at [facility] and did well, would go there again if STR is rec. CM to follow and assist with DC planning.
--- NOTE | 2023-03-27 14:50 | HO.WOUND ---
Addendum entered by Thelma Jordan RN 03/27/23 16:38: Despite patient not available chart review completed and photos reviewed from yesterdays admission - the following topical recommendations are made after photo review. Inpatient wound care will follow up early next week if patient remains inpatient. Bilateral Lower Legs Etiology: ?Venous Dermatitis with open wounds noted in photo Goals of Treatment: ? Moist wound healing and moisture management. Recommendations: 1. Turn and Reposition every 2 hours and as needed for patient comfort.? Use pillows or wedges to support off loading positions. 2. Off Load all bony prominences with use of pillows and heel boots if needed.? Apply Preventative foams where needed. ? 3. Monitor for incontinence and moisture control, use barrier creams when needed for prevention and treatment. 4. Provide adequate and supplemental nutrition.? 5. Order or Continue low air loss mattress. 6. Maintain blood glucose levels per Providers order. 7. Bilateral Lower Legs - Elevate lower legs off of bed surface - Cleanse with normal saline, pat dry. ?Apply vaseline ointment to both lower extremities cover wound bed with single layer xeroform, cover with gauze pad, gauze wrap and tape. ?Change Daily. Re-consult wound care Nurse for wound deterioration or wound changes. Original Note: Wound Consult: Initial 78yr old?M admitted to [facility] - See progress notes and H&P for detailed history.? Wound consult placed for Bilateral Lower Legs .? Arrival to bedside pt was off unit - will attempt consultation at future date and or time.
[2023-03-27 16:22] LABS: Glucose, Whole Blood 320 mg/dL (60-115)
--- NOTE | 2023-03-27 17:03 | HO.PM.IMPN ---
Subjective Subjective Date of Service: 03/27/23 Interval History: No acute issues overnight Review of Systems Denies chest pain Denies shortness of breath Denies nausea vomiting diarrhea Denies fever chills Physical Exam Vital Signs: Vital Signs: Last Vital Signs Temp 97.4 F 03/27/23 15:56 Pulse 77 03/27/23 15:56 Resp 20 03/27/23 15:56 BP 139/64 03/27/23 15:56 Pulse Ox 92 03/27/23 15:56 O2 Del Method Room Air 03/27/23 15:56 BMI result Body Mass Index 45.8 Const: Other: Awake alert no acute distress Resp: Other: Diffuse expiratory wheezes throughout Cardio: Other: No S4; positive S1-S2; no S3 murmurs rubs or gallops GI: Other: Soft nontender nondistended normoactive bowel sounds Extrem: Other: See admission photos Objective Data Active Medications Acetaminophen (Acetaminophen 325 Mg Tablet) 650 mg PO Q6H PRN PRN Reason: Pain, Mild (Pain Scale 1-3) Last Admin: 03/26/23 21:43 Dose: 650 mg Documented By: DARREN Albuterol/Ipratropium (Albuterol/Iprat 2.5/0.5mg 3 Ml Ampul.Neb) 3 ml INHALE RQ4H WHILE AWAKE [facility] Last Admin: 03/27/23 15:22 Dose: 3 ml Documented By: GENARO Albuterol/Ipratropium (Albuterol/Iprat 2.5/0.5mg 3 Ml Ampul.Neb) 3 ml INHALE Q4H PRN PRN Reason: Wheezing Apixaban (Apixaban 5 Mg Tablet) 5 mg PO BID [facility] Last Admin: 03/27/23 08:54 Dose: 5 mg Documented By: KIERA Atorvastatin Calcium (Atorvastatin Calcium 80 Mg Tablet) 80 mg PO DAILY [facility] Last Admin: 03/27/23 08:54 Dose: 80 mg Documented By: KIERA Cyclobenzaprine HCl (Cyclobenzaprine Hcl 5 Mg Tablet) 5 mg PO BID PRN PRN Reason: muscle spasm Dextrose (Dextrose 50 % 25 Gm/50 Ml Syringe) 25 gm IVPUSH Q15M PRN; Protocol PRN Reason: per Hypoglycemia Standing Ord. Docusate Sodium (Docusate Sodium 100 Mg/10 Ml Liquid) 50 mg PO Q6H [facility] Last Admin: 03/27/23 15:40 Dose: 50 mg Documented By: KENDRICK Escitalopram Oxalate (Escitalopram Oxalate 10 Mg Tablet) 10 mg PO DAILY [facility] Last Admin: 03/27/23 08:54 Dose: 10 mg Documented By: KIERA Fluticasone/Umeclidinium/Vilanterol (Fluticasone/Umeclidinium/Vilanterol 100/62.5/25 Blst.W.Dev) 1 puff INHALE RDAILY [facility] Last Admin: 03/27/23 07:59 Dose: 1 puff Documented By: GENARO Gabapentin (Gabapentin 600 Mg Tablet) 600 mg PO BID [facility] Last Admin: 03/27/23 08:54 Dose: 600 mg Documented By: KIERA Glucose (Glucose Gel 15 Gm Gel..Gram.) 15 gm PO Q15M PRN; Protocol PRN Reason: per Hypoglycemia Standing Ord. Azithromycin 500 mg/ Sodium (Chloride) 250 mls @ 125 mls/hr IV Q24H [facility] Last Infusion: 03/27/23 00:11 Dose: Infused Documented By: CHAPO Ceftriaxone Sodium 1 gm/ (Sodium Chloride) 50 mls @ 100 mls/hr IV Q24H [facility] Insulin Human Lispro (Insulin Lispro 100 Unit/Ml 3 Ml Vial) 0 unit SUBCUT QIDACHS [facility]; Protocol Last Admin: 03/27/23 12:17 Dose: 10 unit Documented By: PADILLA Melatonin (Melatonin 3 Mg Tablet) 6 mg PO BEDTIME PRN PRN Reason: Insomnia Metoprolol Succinate (Metoprolol Succinate Er 25 Mg Tab.Er.24h) 25 mg PO DAILY [facility]; Protocol Last Admin: 03/27/23 06:40 Dose: 25 mg Documented By: SHALOM Comments: per dr dayanara harrison now due to bp 170/69 Omeprazole (Omeprazole 20 Mg Ara.) 20 mg PO DAILY@0630 [facility] Last Admin: 03/27/23 06:40 Dose: 20 mg Documented By: SHALOM Ondansetron HCl (Ondansetron Hcl 4 Mg/2 Ml Vial) 4 mg IVPUSH Q8H PRN PRN Reason: Nausea and Vomiting Oxycodone HCl (Oxycodone Hcl Immed Release 5 Mg Tablet) 10 mg PO Q6H [facility] Last Admin: 03/27/23 15:39 Dose: 10 mg Documented By: KENDRICK Sodium Chloride (0.9 % Sodium Chloride Flush 3 Ml Syringe) 3 ml IVFLUSH QSHIFT [facility] Last Admin: 03/27/23 15:40 Dose: 3 ml Documented By: KENDRICK Vitamin D (Cholecalciferol (Vitamin D3) 25 Mcg Tablet) 25 mcg PO DAILY [facility] Last Admin: 03/27/23 08:54 Dose: 25 mcg Documented By: KIERA Labs 03/27/23 05:48 03/27/23 05:48 Labs: Laboratory Results - last 24 hr 03/26/23 03/26/23 03/26/23 18:22 20:38 21:50 MCV 86.8 MCH 28.0 MCHC 32.3 RDW 15.0 Plt Count 246 MPV 10.8 Immature Gran % (Auto) 2.1 H Neut % (Auto) 66.7 Lymph % (Auto) 19.8 L [place] % (Auto) 7.1 Eos % (Auto) 3.7 Baso % (Auto) 0.6 Lymph # (Auto) 2.0 [place] # (Auto) 0.7 Eos # (Auto) 0.4 Baso # (Auto) 0.1 Abs Immat Gran (auto) 0.21 H Absolute Neuts (auto) 6.8 Absolute Nucleated RBC 0.000 Nucleated RBC % (auto) 0.0 ESR 13 PT 13.2 INR 1.1 Anion Gap 15 Estim Creat Clear Calc 58.0 Estimated GFR 47 POC Glucose 259 H Random Glucose 263 H Lactic Acid 1.8 Calcium 9.8 D Magnesium 1.8 Total Bilirubin 0.6 Direct Bilirubin 0.2 AST 26 ALT 28 Alkaline Phosphatase 206 H C-Reactive Protein 0.44 B-Natriuretic Peptide 83 Total Protein 8.1 H Albumin 3.9 Urine Color Yellow Urine Appearance Clear Urine pH 5.5 Ur Specific [place] >= 1.030 H Urine Protein 30 (1+) H Urine Glucose (UA) 250 H Urine Ketones Trace Urine Blood Negative Urine Nitrite Negative Ur Leukocyte Esterase Negative Urine RBC 0-2 Urine WBC 0-5 Ur Squamous Epith Cells 0-2 Urine Bacteria None Seen Hyaline Casts 0-2 COVID-19 (DANUTA) Positive A COVID-19 Clin Com See Note Influenza Type A (CHAS) Negative Influenza Type B (CHAS) Negative Influenza A & B Note See Note 03/27/23 03/27/23 03/27/23 05:48 07:27 11:54 MCV 86.6 MCH 27.9 MCHC 32.2 RDW 14.9 Plt Count 238 MPV 10.9 Immature Gran % (Auto) 1.9 H Neut % (Auto) 59.8 Lymph % (Auto) 28.1 [place] % (Auto) 6.7 Eos % (Auto) 2.7 Baso % (Auto) 0.8 Lymph # (Auto) 2.8 [place] # (Auto) 0.7 Eos # (Auto) 0.3 Baso # (Auto) 0.1 Abs Immat Gran (auto) 0.19 H Absolute Neuts (auto) 6.1 Absolute Nucleated RBC 0.000 Nucleated RBC % (auto) 0.0 ESR PT INR Anion Gap 13 Estim Creat Clear Calc 81.9 Estimated GFR > 60 POC Glucose 218 H 230 H Random Glucose 219 H Lactic Acid Calcium 8.8 D Magnesium Total Bilirubin Direct Bilirubin AST ALT Alkaline Phosphatase C-Reactive Protein B-Natriuretic Peptide Total Protein Albumin Urine Color Urine Appearance Urine pH Ur Specific [place] Urine Protein Urine Glucose (UA) Urine Ketones Urine Blood Urine Nitrite Ur Leukocyte Esterase Urine RBC Urine WBC Ur Squamous Epith Cells Urine Bacteria Hyaline Casts COVID-19 (DANUTA) COVID-19 Clin Com Influenza Type A (CHAS) Influenza Type B (CHAS) Influenza A & B Note 03/27/23 16:13 MCV MCH MCHC RDW Plt Count MPV Immature Gran % (Auto) Neut % (Auto) Lymph % (Auto) [place] % (Auto) Eos % (Auto) Baso % (Auto) Lymph # (Auto) [place] # (Auto) Eos # (Auto) Baso # (Auto) Abs Immat Gran (auto) Absolute Neuts (auto) Absolute Nucleated RBC Nucleated RBC % (auto) ESR PT INR Anion Gap Estim Creat Clear Calc Estimated GFR POC Glucose 320 H Random Glucose Lactic Acid Calcium Magnesium Total Bilirubin Direct Bilirubin AST ALT Alkaline Phosphatase C-Reactive Protein B-Natriuretic Peptide Total Protein Albumin Urine Color Urine Appearance Urine pH Ur Specific [place] Urine Protein Urine Glucose (UA) Urine Ketones Urine Blood Urine Nitrite Ur Leukocyte Esterase Urine RBC Urine WBC Ur Squamous Epith Cells Urine Bacteria Hyaline Casts COVID-19 (DANUTA) COVID-19 Clin Com Influenza Type A (CHAS) Influenza Type B (CHAS) Influenza A & B Note Assessment and Plan (1) COVID-19: Status: Acute (2) PEPE (acute kidney injury): Status: Acute (3) Pneumonia: Status: Acute Plan Pt is a 78-year-old male with a PMH significant for?CHF unspecified, HTN, HLD, paroxysmal AFib on Eliquis, cauda equina syndrome (June 2022), chronic lower back pain on chronic opioids, and insulin-dependent diabetes type 2 who presents to the ED with?with multiple complaints. Patient's chief complaint is of leg wounds and pain. Also recently tested positive for COVID with SOB, generalized weakness, and productive cough. Pt will be admitted to the hospital for treatment and further evaluation of PEPE, community-acquired pneumonia, and generalized weakness in the setting of COVID infection. 1; COVID infection with superimposed pnuemonia -ceftriaxone/azithromycin(2) -Duonebs scheduled and prn -titrate O2 to maintain sats greater than equal to 90% 2.PEPE -resolved with volume repletion -follow renals/divalents 3.Lower leg wounds -Wound care consult 4.Paroxysmal AFib -acceptable rate control -Continue Eliquis, metoprolol 5.Insulin-dependent diabetes type 2 -acceptable control on current therapies -lispro correctional scale -adjust as indicated 6.HTN -acceptable control -resume outpatient therapies as clinically indicated DNR/DNI Eliquis Patient will require ongoing hospitalization for IV antibiotics to treat pneumonia in the backdrop of COVID infection along with supplemental O2 Quality Stroke Does the patient have a stroke diagnosis?: No VTE Prior VTE?: No VTE Risk Level:: Medical - moderate - high VTE Device Contraindication: Treatment Not Indicated VTE Drug Contraindication: N/A - Med Ordered
[2023-03-27 20:14] LABS: Glucose, Whole Blood 344 mg/dL (60-115)
[2023-03-27] MEDS: cefTRIAXone sodium 1 GM in 0.9 % Sodium Chloride 50 ML IV (20:17)
[2023-03-27] MEDS: Azithromycin 500 MG in 0.9 % Sodium Chloride 250 ML 125 MG IV (21:31)
[2023-03-28] VITALS (8 sets, daily range): BP systolic 156–177; BP diastolic 62–85; PULSE 60–76; RESP 18–20; TEMP 36.1–37; O2SAT 92–94
[2023-03-28] MEDS: oxyCODONE HCl Immed Release 5 MG TABLET 10 MG PO ×4 (03:33→21:32)
[2023-03-28] MEDS: Docusate Sodium 100 MG/10 ML LIQUID 50 MG PO ×4 (03:33→20:50)
[2023-03-28 06:38] LABS: MANUAL DIFF FLAG NO
[2023-03-28] MEDS: Omeprazole 20 MG CAPSULE.DR PO (06:39)
[2023-03-28 07:00] LABS: Basophils Absolute Auto 0.1 X10*3/uL (0.0-0.2); Basophils Percent Auto 0.8 % (0-2); Eosinophils Absolute Auto 0.3 X10*3/uL (0.0-0.4); Eosinophils Percent Auto 3.2 % (0-4); Hematocrit 44.4 % (42.0-52.0); Hemoglobin 14.5 g/dl (14.0-18.0); Imm Gran Abs Auto 0.13 X10*3/uL (0.00-0.03); Imm Gran Pct Auto 1.4 % (0.0-0.4); Lymphocytes Absolute Auto 2.3 X10*3/uL (1.2-4.9); Mean Corpuscular HGB Conc 32.7 g/dl (31.0-36.0); Mean Corpuscular Hemoglobin 28.7 pg (27.0-33.0); Mean Corpuscular Volume 87.9 fL (80.0-98.0); Mean Platelet Volume 10.8 fL (9.4-12.4); Monocytes Absolute Auto 0.7 X10*3/uL (0.1-1.2); Monocytes Percent Auto 7.5 % (2-11); Neutrophils Percent Auto 63.1 % (45-73); Platelet Count 220 X10*3/uL (160-400); Red Blood Count 5.05 X10*6/uL (4.60-5.80); White Blood Count 9.5 X10*3/uL (4.8-10.8)
[2023-03-28 07:04] LABS: Alanine Aminotransferase 18 U/L (0-40); Albumin Level 3.4 g/dL (3.5-5.0); Alkaline Phosphatase 105 U/L (39-117); Anion Gap 13 (12-20); Aspartate Amino Transferase 12 U/L (5-37); Blood Urea Nitrogen 14 mg/dL (9-16); Carbon Dioxide 27 mmol/L (22-29); Chloride 102 mmol/L (96-108); Creatinine Clr Calc Pharmacy 90.8; Estimated Glomerular Filt Rate > 60; Glucose Fasting 278 mg/dL (60-99); Potassium 4.5 mmol/L (3.3-5.1); Sodium 137 mmol/L (135-145); Total Protein 6.8 g/dL (6.5-8.0)
[2023-03-28 07:21] LABS: Glucose, Whole Blood 278 mg/dL (60-115)
[2023-03-28] MEDS: Albuterol/Iprat 2.5/0.5MG 3 ML AMPUL.NEB INHALE ×3 (08:00→15:13)
[2023-03-28] MEDS: Fluticasone/Umeclidinium/Vilanterol 100/62.5/25 BLST.W.DEV 1 PUFF INHALE (08:41)
[2023-03-28] MEDS: Metoprolol Succinate ER 25 MG TAB.ER.24H PO (08:59)
[2023-03-28] MEDS: Escitalopram Oxalate 10 MG TABLET PO (09:00)
[2023-03-28] MEDS: Atorvastatin Calcium 80 MG TABLET PO (09:00)
[2023-03-28] MEDS: Insulin Lispro 100 UNIT/ML 3 ML VIAL SUBCUT ×4 (09:00→20:51)
[2023-03-28] MEDS: Cholecalciferol (Vitamin D3) 25 MCG TABLET PO (09:00)
[2023-03-28] MEDS: Apixaban 5 MG TABLET PO ×2 (09:00→20:51)
[2023-03-28] MEDS: Gabapentin 600 MG TABLET PO ×2 (09:00→20:51)
[2023-03-28] MEDS: 0.9 % Sodium Chloride Flush 3 ML SYRINGE IVFLUSH ×3 (09:01→17:07)
[2023-03-28 11:35] LABS: Glucose, Whole Blood 323 mg/dL (60-115)
--- NOTE | 2023-03-28 14:19 | HO.PM.IMPN ---
Subjective Subjective Date of Service: 03/28/23 Interval History: States leg feels better with the antibiotics. No acute issues Review of Systems Denies chest pain Denies shortness of breath Denies nausea vomiting diarrhea Denies fever chills Physical Exam Vital Signs: Vital Signs: Last Vital Signs Temp 98.1 F 03/28/23 07:07 Pulse 71 03/28/23 11:17 Resp 18 03/28/23 11:17 BP 174/74 H 03/28/23 07:07 Pulse Ox 92 03/28/23 07:07 O2 Del Method Room Air 03/28/23 07:07 BMI result Body Mass Index 45.8 Const: Other: Awake alert no acute distress Resp: Other: Diffuse expiratory wheezes throughout Cardio: Other: No S4; positive S1-S2; no S3 murmurs rubs or gallops GI: Other: Soft nontender nondistended normoactive bowel sounds Extrem: Other: See admission photos... Erythema improving Objective Data Active Medications Acetaminophen (Acetaminophen 325 Mg Tablet) 650 mg PO Q6H PRN PRN Reason: Pain, Mild (Pain Scale 1-3) Last Admin: 03/26/23 21:43 Dose: 650 mg Documented By: DARREN Albuterol/Ipratropium (Albuterol/Iprat 2.5/0.5mg 3 Ml Ampul.Neb) 3 ml INHALE RQ4H WHILE AWAKE [facility] Last Admin: 03/28/23 11:16 Dose: 3 ml Documented By: TRENA Albuterol/Ipratropium (Albuterol/Iprat 2.5/0.5mg 3 Ml Ampul.Neb) 3 ml INHALE Q4H PRN PRN Reason: Wheezing Apixaban (Apixaban 5 Mg Tablet) 5 mg PO BID [facility] Last Admin: 03/28/23 09:00 Dose: 5 mg Documented By: KENDRICK Atorvastatin Calcium (Atorvastatin Calcium 80 Mg Tablet) 80 mg PO DAILY [facility] Last Admin: 03/28/23 09:00 Dose: 80 mg Documented By: KENDRICK Cyclobenzaprine HCl (Cyclobenzaprine Hcl 5 Mg Tablet) 5 mg PO BID PRN PRN Reason: muscle spasm Dextrose (Dextrose 50 % 25 Gm/50 Ml Syringe) 25 gm IVPUSH Q15M PRN; Protocol PRN Reason: per Hypoglycemia Standing Ord. Docusate Sodium (Docusate Sodium 100 Mg/10 Ml Liquid) 50 mg PO Q6H [facility] Last Admin: 03/28/23 09:00 Dose: 50 mg Documented By: KENDRICK Escitalopram Oxalate (Escitalopram Oxalate 10 Mg Tablet) 10 mg PO DAILY [facility] Last Admin: 03/28/23 09:00 Dose: 10 mg Documented By: KENDRICK Fluticasone/Umeclidinium/Vilanterol (Fluticasone/Umeclidinium/Vilanterol 100/62.5/25 Blst.W.Dev) 1 puff INHALE RDAILY [facility] Last Admin: 03/28/23 08:41 Dose: 1 puff Documented By: TRENA Gabapentin (Gabapentin 600 Mg Tablet) 600 mg PO BID [facility] Last Admin: 03/28/23 09:00 Dose: 600 mg Documented By: KENDRICK Glucose (Glucose Gel 15 Gm Gel..Gram.) 15 gm PO Q15M PRN; Protocol PRN Reason: per Hypoglycemia Standing Ord. Azithromycin 500 mg/ Sodium (Chloride) 250 mls @ 125 mls/hr IV Q24H [facility] Last Infusion: 03/27/23 23:50 Dose: Infused Documented By: RUTHANN Ceftriaxone Sodium 1 gm/ (Sodium Chloride) 50 mls @ 100 mls/hr IV Q24H [facility] Last Infusion: 03/27/23 21:00 Dose: Infused Documented By: RUTHANN Insulin Human Lispro (Insulin Lispro 100 Unit/Ml 3 Ml Vial) 0 unit SUBCUT QIDACHS [facility]; Protocol Last Admin: 03/28/23 12:01 Dose: 8 unit Documented By: ASHELY Melatonin (Melatonin 3 Mg Tablet) 6 mg PO BEDTIME PRN PRN Reason: Insomnia Metoprolol Succinate (Metoprolol Succinate Er 25 Mg Tab.Er.24h) 25 mg PO DAILY [facility]; Protocol Last Admin: 03/28/23 08:59 Dose: 25 mg Documented By: KENDRICK Omeprazole (Omeprazole 20 Mg Capsule.Dr) 20 mg PO DAILY@0630 [facility] Last Admin: 03/28/23 06:39 Dose: 20 mg Documented By: RUTHANN Ondansetron HCl (Ondansetron Hcl 4 Mg/2 Ml Vial) 4 mg IVPUSH Q8H PRN PRN Reason: Nausea and Vomiting Oxycodone HCl (Oxycodone Hcl Immed Release 5 Mg Tablet) 10 mg PO Q6H [facility] Last Admin: 03/28/23 09:00 Dose: 10 mg Documented By: KENDRICK Sodium Chloride (0.9 % Sodium Chloride Flush 3 Ml Syringe) 3 ml IVFLUSH QSHIFT [facility] Last Admin: 03/28/23 09:01 Dose: 3 ml Documented By: KENDRICK Vitamin D (Cholecalciferol (Vitamin D3) 25 Mcg Tablet) 25 mcg PO DAILY [facility] Last Admin: 03/28/23 09:00 Dose: 25 mcg Documented By: KENDRICK Labs 03/28/23 06:32 03/28/23 06:32 Labs: Laboratory Results - last 24 hr 03/27/23 03/27/23 03/28/23 16:13 20:06 06:32 MCV 87.9 MCH 28.7 MCHC 32.7 RDW 15.0 Plt Count 220 MPV 10.8 Immature Gran % (Auto) 1.4 H Neut % (Auto) 63.1 Lymph % (Auto) 24.0 [place] % (Auto) 7.5 Eos % (Auto) 3.2 Baso % (Auto) 0.8 Lymph # (Auto) 2.3 [place] # (Auto) 0.7 Eos # (Auto) 0.3 Baso # (Auto) 0.1 Abs Immat Gran (auto) 0.13 H Absolute Neuts (auto) 6.0 Absolute Nucleated RBC 0.000 Nucleated RBC % (auto) 0.0 Anion Gap 13 Estim Creat Clear Calc 90.8 Estimated GFR > 60 POC Glucose 320 H 344 H Fasting Glucose 278 H Calcium 9.0 Total Bilirubin 1.0 AST 12 ALT 18 Alkaline Phosphatase 105 Total Protein 6.8 Albumin 3.4 L 03/28/23 03/28/23 07:11 11:18 MCV MCH MCHC RDW Plt Count MPV Immature Gran % (Auto) Neut % (Auto) Lymph % (Auto) [place] % (Auto) Eos % (Auto) Baso % (Auto) Lymph # (Auto) [place] # (Auto) Eos # (Auto) Baso # (Auto) Abs Immat Gran (auto) Absolute Neuts (auto) Absolute Nucleated RBC Nucleated RBC % (auto) Anion Gap Estim Creat Clear Calc Estimated GFR POC Glucose 278 H 323 H Fasting Glucose Calcium Total Bilirubin AST ALT Alkaline Phosphatase Total Protein Albumin Microbiology Microbiology Results: Microbiology 03/26/23 18:22 Blood Culture - Preliminary Blood - Venous No growth after 24 hours. 03/26/23 18:22 Blood Culture - Preliminary Blood - Venous No growth after 24 hours. Assessment and Plan (1) Pneumonia: Status: Acute (2) PEPE (acute kidney injury): Status: Acute Plan Pt is a 78-year-old male with a PMH significant for?CHF unspecified, HTN, HLD, paroxysmal AFib on Eliquis, cauda equina syndrome (June 2022), chronic lower back pain on chronic opioids, and insulin-dependent diabetes type 2 who presents to the ED with?with multiple complaints. Patient's chief complaint is of leg wounds and pain. Also recently tested positive for COVID with SOB, generalized weakness, and productive cough. Pt will be admitted to the hospital for treatment and further evaluation of PEPE, community-acquired pneumonia, and generalized weakness in the setting of COVID infection. 1; COVID infection with superimposed pnuemonia -ceftriaxone/azithromycin(3) -Duonebs scheduled and prn -titrate O2 to maintain sats greater than equal to 90% 2.PEPE -resolved with volume repletion -follow renals/divalents 3.Lower leg wounds -Wound care consult -improving with antibiotic therapy 4.Paroxysmal AFib -acceptable rate control -Continue Eliquis, metoprolol 5.Insulin-dependent diabetes type 2 -acceptable control on current therapies -lispro correctional scale -adjust as indicated 6.HTN -acceptable control -resume outpatient therapies as clinically indicated DNR/DNI Eliquis Patient will require ongoing hospitalization for IV antibiotics to treat pneumonia in the backdrop of COVID infection along with supplemental O2 Quality Stroke Does the patient have a stroke diagnosis?: No VTE Prior VTE?: No VTE Risk Level:: Medical - moderate - high VTE Device Contraindication: Treatment Not Indicated VTE Drug Contraindication: N/A - Med Ordered
[2023-03-28 16:03] LABS: Glucose, Whole Blood 332 mg/dL (60-115)
[2023-03-28 20:15] LABS: Glucose, Whole Blood 343 mg/dL (60-115)
[2023-03-28] MEDS: Azithromycin 500 MG in 0.9 % Sodium Chloride 250 ML 125 MG IV (20:48)
[2023-03-28] MEDS: cefTRIAXone sodium 1 GM in 0.9 % Sodium Chloride 50 ML IV (20:50)
[2023-03-29] VITALS (7 sets, daily range): BP systolic 162–197; BP diastolic 59–83; PULSE 53–77; RESP 15–20; TEMP 36.2–36.9; O2SAT 94–100
[2023-03-29] MEDS: 0.9 % Sodium Chloride Flush 3 ML SYRINGE IVFLUSH ×4 (00:19→20:31)
[2023-03-29] MEDS: oxyCODONE HCl Immed Release 5 MG TABLET 10 MG PO ×4 (04:30→20:30)
[2023-03-29] MEDS: Omeprazole 20 MG CAPSULE.DR PO (04:30)
[2023-03-29] MEDS: Docusate Sodium 100 MG/10 ML LIQUID 50 MG PO ×4 (04:30→20:30)
[2023-03-29 06:06] LABS: MANUAL DIFF FLAG NO
[2023-03-29 06:22] LABS: Basophils Absolute Auto 0.1 X10*3/uL (0.0-0.2); Basophils Percent Auto 0.6 % (0-2); Eosinophils Absolute Auto 0.4 X10*3/uL (0.0-0.4); Eosinophils Percent Auto 3.8 % (0-4); Hematocrit 45.9 % (42.0-52.0); Hemoglobin 14.9 g/dl (14.0-18.0); Lymphocytes Absolute Auto 2.1 X10*3/uL (1.2-4.9); Lymphocytes Percent Auto 21.3 % (20-40); Mean Corpuscular HGB Conc 32.5 g/dl (31.0-36.0); Mean Corpuscular Hemoglobin 28.5 pg (27.0-33.0); Mean Corpuscular Volume 87.8 fL (80.0-98.0); Monocytes Absolute Auto 0.6 X10*3/uL (0.1-1.2); Monocytes Percent Auto 5.7 % (2-11); Neutrophils Absolute Auto 6.8 x10*3/uL (2.0-8.3); Neutrophils Percent Auto 67.6 % (45-73); Platelet Count 215 X10*3/uL (160-400); Red Blood Count 5.23 X10*6/uL (4.60-5.80); Red Cell Distribution Width 14.6 % (11.0-16.0); White Blood Count 10.1 X10*3/uL (4.8-10.8)
[2023-03-29 06:48] LABS: Alanine Aminotransferase 15 U/L (0-40); Albumin Level 3.5 g/dL (3.5-5.0); Alkaline Phosphatase 111 U/L (39-117); Anion Gap 13 (12-20); Aspartate Amino Transferase 12 U/L (5-37); Blood Urea Nitrogen 13 mg/dL (9-16); Calcium 9.2 mg/dL (8.4-10.2); Carbon Dioxide 30 mmol/L (22-29); Chloride 99 mmol/L (96-108); Creatinine Clr Calc Pharmacy 88.9; Estimated Glomerular Filt Rate > 60; Glucose Fasting 288 mg/dL (60-99); Potassium 4.1 mmol/L (3.3-5.1); Sodium 138 mmol/L (135-145); Total Protein 6.9 g/dL (6.5-8.0)
[2023-03-29 07:56] LABS: Glucose, Whole Blood 242 mg/dL (60-115)
[2023-03-29] MEDS: Atorvastatin Calcium 80 MG TABLET PO (08:05)
[2023-03-29] MEDS: Gabapentin 600 MG TABLET PO ×2 (08:05→20:30)
[2023-03-29] MEDS: Apixaban 5 MG TABLET PO ×2 (08:05→20:30)
[2023-03-29] MEDS: Insulin Lispro 100 UNIT/ML 3 ML VIAL SUBCUT ×4 (08:06→20:31)
[2023-03-29] MEDS: Metoprolol Succinate ER 25 MG TAB.ER.24H PO (08:06)
[2023-03-29] MEDS: Escitalopram Oxalate 10 MG TABLET PO (08:06)
[2023-03-29] MEDS: Cholecalciferol (Vitamin D3) 25 MCG TABLET PO (08:07)
[2023-03-29] MEDS: Albuterol/Iprat 2.5/0.5MG 3 ML AMPUL.NEB INHALE ×3 (08:08→15:18)
[2023-03-29] MEDS: Fluticasone/Umeclidinium/Vilanterol 100/62.5/25 BLST.W.DEV 1 PUFF INHALE (08:08)
[2023-03-29 11:37] LABS: Glucose, Whole Blood 386 mg/dL (60-115)
--- NOTE | 2023-03-29 12:39 | MHC.CM.PN ---
Addendum entered by Belle Jacob 03/29/23 13:00: CM SPOKE TO PTS , SHE WAS INFORMED PT WAS CHANGED FROM OBSERVATION TO INPATIENT MEDICARE RIGHTS AMANDA REPORTS HE PT HAS BEEN TO [facility] IN THE PAST AND DOES NOT WANT HIM TO RETURN THERE EVER SHE SAYS THE PT HAS ALSO BEEN TO [facility] AND THAT IS THE PREFERRED SNF Addendum entered by Belle Jacob 03/29/23 12:44: PT CHANGED FROM OBSERVATION TO INPATIENT STATUS ON 03/28/23 Original Note: PT ADMITTED, COVID + CM ATTEMPTED TO REACH PTS TO COMPLETE [facility] [employer] CALL PLACED TO AMANDA [phone], NO ANSWER VM MESSAGE LEFT REQUESTING A RETURN CALL
--- NOTE | 2023-03-29 13:54 | HO.PM.IMPN ---
Subjective Subjective Date of Service: 03/29/23 Interval History: No acute issues overnight. Leg slowly improving Review of Systems Denies chest pain Denies shortness of breath Denies nausea vomiting diarrhea Denies fever chills Physical Exam Vital Signs: Vital Signs: Last Vital Signs Temp 97.4 F 03/29/23 07:06 Pulse 66 03/29/23 11:54 Resp 17 03/29/23 11:54 BP 162/72 H 03/29/23 07:06 Pulse Ox 95 03/29/23 07:06 O2 Del Method Room Air 03/29/23 07:06 BMI result Body Mass Index 45.8 Const: Other: Awake alert no acute distress Resp: Other: Diffuse expiratory wheezes throughout Cardio: Other: No S4; positive S1-S2; no S3 murmurs rubs or gallops GI: Other: Soft nontender nondistended normoactive bowel sounds Extrem: Other: See admission photos... Erythema improving Objective Data Active Medications Acetaminophen (Acetaminophen 325 Mg Tablet) 650 mg PO Q6H PRN PRN Reason: Pain, Mild (Pain Scale 1-3) Last Admin: 03/26/23 21:43 Dose: 650 mg Documented By: DARREN Albuterol/Ipratropium (Albuterol/Iprat 2.5/0.5mg 3 Ml Ampul.Neb) 3 ml INHALE RQ4H WHILE AWAKE [facility] Last Admin: 03/29/23 11:52 Dose: 3 ml Documented By: JULI Albuterol/Ipratropium (Albuterol/Iprat 2.5/0.5mg 3 Ml Ampul.Neb) 3 ml INHALE Q4H PRN PRN Reason: Wheezing Apixaban (Apixaban 5 Mg Tablet) 5 mg PO BID [facility] Last Admin: 03/29/23 08:05 Dose: 5 mg Documented By: BRENT Atorvastatin Calcium (Atorvastatin Calcium 80 Mg Tablet) 80 mg PO DAILY [facility] Last Admin: 03/29/23 08:05 Dose: 80 mg Documented By: BRENT Cyclobenzaprine HCl (Cyclobenzaprine Hcl 5 Mg Tablet) 5 mg PO BID PRN PRN Reason: muscle spasm Dextrose (Dextrose 50 % 25 Gm/50 Ml Syringe) 25 gm IVPUSH Q15M PRN; Protocol PRN Reason: per Hypoglycemia Standing Ord. Docusate Sodium (Docusate Sodium 100 Mg/10 Ml Liquid) 50 mg PO Q6H [facility] Last Admin: 03/29/23 10:34 Dose: 50 mg Documented By: BRENT Escitalopram Oxalate (Escitalopram Oxalate 10 Mg Tablet) 10 mg PO DAILY [facility] Last Admin: 03/29/23 08:06 Dose: 10 mg Documented By: BRENT Fluticasone/Umeclidinium/Vilanterol (Fluticasone/Umeclidinium/Vilanterol 100/62.5/25 Blst.W.Dev) 1 puff INHALE RDAILY [facility] Last Admin: 03/29/23 08:08 Dose: 1 puff Documented By: JULI Gabapentin (Gabapentin 600 Mg Tablet) 600 mg PO BID [facility] Last Admin: 03/29/23 08:05 Dose: 600 mg Documented By: BRENT Glucose (Glucose Gel 15 Gm Gel..Gram.) 15 gm PO Q15M PRN; Protocol PRN Reason: per Hypoglycemia Standing Ord. Azithromycin 500 mg/ Sodium (Chloride) 250 mls @ 125 mls/hr IV Q24H [facility] Last Infusion: 03/29/23 01:40 Dose: Infused Documented By: YORDAN Ceftriaxone Sodium 1 gm/ (Sodium Chloride) 50 mls @ 100 mls/hr IV Q24H [facility] Last Infusion: 03/28/23 21:27 Dose: Infused Documented By: ASHELY Insulin Human Lispro (Insulin Lispro 100 Unit/Ml 3 Ml Vial) 0 unit SUBCUT QIDACHS [facility]; Protocol Last Admin: 03/29/23 12:23 Dose: 10 unit Documented By: ASHELY Melatonin (Melatonin 3 Mg Tablet) 6 mg PO BEDTIME PRN PRN Reason: Insomnia Metoprolol Succinate (Metoprolol Succinate Er 25 Mg Tab.Er.24h) 25 mg PO DAILY [facility]; Protocol Last Admin: 03/29/23 08:06 Dose: 25 mg Documented By: BRENT Omeprazole (Omeprazole 20 Mg Capsule.Dr) 20 mg PO DAILY@0630 [facility] Last Admin: 03/29/23 04:30 Dose: 20 mg Documented By: YORDAN Ondansetron HCl (Ondansetron Hcl 4 Mg/2 Ml Vial) 4 mg IVPUSH Q8H PRN PRN Reason: Nausea and Vomiting Oxycodone HCl (Oxycodone Hcl Immed Release 5 Mg Tablet) 10 mg PO Q6H [facility] Last Admin: 03/29/23 10:35 Dose: 10 mg Documented By: BRENT Sodium Chloride (0.9 % Sodium Chloride Flush 3 Ml Syringe) 3 ml IVFLUSH QSHIFT [facility] Last Admin: 03/29/23 08:06 Dose: 3 ml Documented By: BRENT Vitamin D (Cholecalciferol (Vitamin D3) 25 Mcg Tablet) 25 mcg PO DAILY [facility] Last Admin: 03/29/23 08:07 Dose: 25 mcg Documented By: BRENT Labs 03/29/23 05:51 03/29/23 05:51 Labs: Laboratory Results - last 24 hr 03/28/23 03/28/23 03/29/23 15:49 20:08 05:51 MCV 87.8 MCH 28.5 MCHC 32.5 RDW 14.6 Plt Count 215 MPV 11.0 Immature Gran % (Auto) 1.0 H Neut % (Auto) 67.6 Lymph % (Auto) 21.3 [place] % (Auto) 5.7 Eos % (Auto) 3.8 Baso % (Auto) 0.6 Lymph # (Auto) 2.1 [place] # (Auto) 0.6 Eos # (Auto) 0.4 Baso # (Auto) 0.1 Abs Immat Gran (auto) 0.10 H Absolute Neuts (auto) 6.8 Absolute Nucleated RBC 0.000 Nucleated RBC % (auto) 0.0 Anion Gap 13 Estim Creat Clear Calc 88.9 Estimated GFR > 60 POC Glucose 332 H 343 H Fasting Glucose 288 H Calcium 9.2 Total Bilirubin 1.0 AST 12 ALT 15 Alkaline Phosphatase 111 Total Protein 6.9 Albumin 3.5 03/29/23 03/29/23 07:41 11:29 MCV MCH MCHC RDW Plt Count MPV Immature Gran % (Auto) Neut % (Auto) Lymph % (Auto) [place] % (Auto) Eos % (Auto) Baso % (Auto) Lymph # (Auto) [place] # (Auto) Eos # (Auto) Baso # (Auto) Abs Immat Gran (auto) Absolute Neuts (auto) Absolute Nucleated RBC Nucleated RBC % (auto) Anion Gap Estim Creat Clear Calc Estimated GFR POC Glucose 242 H 386 H* Fasting Glucose Calcium Total Bilirubin AST ALT Alkaline Phosphatase Total Protein Albumin Microbiology Microbiology Results: Microbiology 03/26/23 18:22 Blood Culture - Preliminary Blood - Venous No growth after 48 hours. 03/26/23 18:22 Blood Culture - Preliminary Blood - Venous No growth after 48 hours. Assessment and Plan (1) COVID-19: Status: Acute (2) Pneumonia: Status: Acute Plan Pt is a 78-year-old male with a PMH significant for?CHF unspecified, HTN, HLD, paroxysmal AFib on Eliquis, cauda equina syndrome (June 2022), chronic lower back pain on chronic opioids, and insulin-dependent diabetes type 2 who presents to the ED with?with multiple complaints. Patient's chief complaint is of leg wounds and pain. Also recently tested positive for COVID with SOB, generalized weakness, and productive cough. Pt will be admitted to the hospital for treatment and further evaluation of PEPE, community-acquired pneumonia, and generalized weakness in the setting of COVID infection. 1; COVID infection with superimposed pnuemonia -ceftriaxone/azithromycin(4) -Duonebs scheduled and prn -titrate O2 to maintain sats greater than equal to 90% 2.PEPE -resolved with volume repletion -follow renals/divalents 3.Lower leg wounds -Wound care consult -improving with antibiotic therapy 4.Paroxysmal AFib -acceptable rate control -Continue Eliquis, metoprolol 5.Insulin-dependent diabetes type 2 -acceptable control on current therapies -lispro correctional scale -adjust as indicated 6.HTN -acceptable control -resume outpatient therapies as clinically indicated DNR/DNI Eliquis Patient will require ongoing hospitalization for IV antibiotics to treat pneumonia in the backdrop of COVID infection along with supplemental O2 Quality Stroke Does the patient have a stroke diagnosis?: No VTE Prior VTE?: No VTE Risk Level:: Medical - moderate - high VTE Device Contraindication: Treatment Not Indicated VTE Drug Contraindication: N/A - Med Ordered
[2023-03-29 15:54] LABS: Glucose, Whole Blood 387 mg/dL (60-115)
[2023-03-29 20:13] LABS: Glucose, Whole Blood 399 mg/dL (60-115)
[2023-03-29] MEDS: cefTRIAXone sodium 1 GM in 0.9 % Sodium Chloride 50 ML IV (20:30)
[2023-03-29] MEDS: Azithromycin 500 MG in 0.9 % Sodium Chloride 250 ML 125 MG IV (21:26)
[2023-03-30] VITALS (8 sets, daily range): BP systolic 133–185; BP diastolic 64–78; PULSE 69–84; RESP 18–20; TEMP 36.6–37.1; O2SAT 92–97
[2023-03-30] MEDS: Docusate Sodium 100 MG/10 ML LIQUID 50 MG PO ×4 (05:14→22:01)
[2023-03-30] MEDS: oxyCODONE HCl Immed Release 5 MG TABLET 10 MG PO ×4 (05:14→22:01)
[2023-03-30] MEDS: Omeprazole 20 MG CAPSULE.DR PO (05:14)
[2023-03-30] MEDS: hydrALAZINE HCl 20 MG/ML VIAL 10 MG IVPUSH (06:25)
[2023-03-30] MEDS: Albuterol/Iprat 2.5/0.5MG 3 ML AMPUL.NEB INHALE ×3 (07:14→14:38)
[2023-03-30] MEDS: Fluticasone/Umeclidinium/Vilanterol 100/62.5/25 BLST.W.DEV 1 PUFF INHALE (07:14)
[2023-03-30 07:17] LABS: Glucose, Whole Blood 265 mg/dL (60-115)
[2023-03-30 08:21] LABS: MANUAL DIFF FLAG NO
[2023-03-30 08:30] LABS: Basophils Absolute Auto 0.1 X10*3/uL (0.0-0.2); Basophils Percent Auto 0.7 % (0-2); Eosinophils Absolute Auto 0.5 X10*3/uL (0.0-0.4); Eosinophils Percent Auto 4.1 % (0-4); Hematocrit 45.4 % (42.0-52.0); Hemoglobin 14.9 g/dl (14.0-18.0); Imm Gran Abs Auto 0.11 X10*3/uL (0.00-0.03); Lymphocytes Absolute Auto 2.3 X10*3/uL (1.2-4.9); Lymphocytes Percent Auto 20.6 % (20-40); Mean Corpuscular HGB Conc 32.8 g/dl (31.0-36.0); Mean Corpuscular Hemoglobin 28.8 pg (27.0-33.0); Mean Corpuscular Volume 87.6 fL (80.0-98.0); Mean Platelet Volume 11.2 fL (9.4-12.4); Monocytes Absolute Auto 0.7 X10*3/uL (0.1-1.2); Monocytes Percent Auto 6.2 % (2-11); Neutrophils Absolute Auto 7.7 x10*3/uL (2.0-8.3); Neutrophils Percent Auto 67.4 % (45-73); Platelet Count 225 X10*3/uL (160-400); Red Blood Count 5.18 X10*6/uL (4.60-5.80); Red Cell Distribution Width 14.4 % (11.0-16.0); White Blood Count 11.4 X10*3/uL (4.8-10.8)
[2023-03-30 08:50] LABS: Alanine Aminotransferase 15 U/L (0-40); Albumin Level 3.6 g/dL (3.5-5.0); Alkaline Phosphatase 119 U/L (39-117); Anion Gap 11 (12-20); Aspartate Amino Transferase 13 U/L (5-37); Bilirubin Total 1.1 mg/dL (0.0-1.0); Blood Urea Nitrogen 13 mg/dL (9-16); Calcium 9.1 mg/dL (8.4-10.2); Carbon Dioxide 30 mmol/L (22-29); Chloride 98 mmol/L (96-108); Creatinine Clr Calc Pharmacy 94.9; Estimated Glomerular Filt Rate > 60; Glucose Fasting 292 mg/dL (60-99); Potassium 3.9 mmol/L (3.3-5.1); Sodium 135 mmol/L (135-145)
[2023-03-30] MEDS: Atorvastatin Calcium 80 MG TABLET PO (08:55)
[2023-03-30] MEDS: Escitalopram Oxalate 10 MG TABLET PO (08:56)
[2023-03-30] MEDS: Metoprolol Succinate ER 25 MG TAB.ER.24H PO (08:56)
[2023-03-30] MEDS: Gabapentin 600 MG TABLET PO ×2 (08:56→22:01)
[2023-03-30] MEDS: Apixaban 5 MG TABLET PO ×2 (08:56→22:01)
[2023-03-30] MEDS: 0.9 % Sodium Chloride Flush 3 ML SYRINGE IVFLUSH ×3 (09:07→19:44)
[2023-03-30 10:56] LABS: Glucose, Whole Blood 356 mg/dL (60-115)
[2023-03-30] MEDS: Insulin Lispro 100 UNIT/ML 3 ML VIAL SUBCUT ×3 (12:15→22:02)
--- NOTE | 2023-03-30 13:04 | P.PNIM_ITS ---
Subjective Subjective Date of Service: 03/30/23 Interval History: No acute issues overnight. Therapy recommending short-term rehab Review of Systems Denies chest pain Denies shortness of breath Denies nausea vomiting diarrhea Denies fever chills Physical Exam 2 Vital Signs: Vital Signs: Last Vital Signs Temp 98.8 F 03/30/23 07:41 Pulse 79 03/30/23 11:13 Resp 20 03/30/23 11:13 BP 162/72 H 03/30/23 07:41 Pulse Ox 96 03/30/23 07:41 O2 Del Method Room Air 03/30/23 07:41 BMI result Body Mass Index 45.8 Const: Other: Awake alert no acute distress Resp: Other: Diffuse expiratory wheezes throughout Cardio: Other: No S4; positive S1-S2; no S3 murmurs rubs or gallops GI: Other: Soft nontender nondistended normoactive bowel sounds Extrem: Other: See admission photos... Erythema improving Objective Data Active Medications Acetaminophen (Acetaminophen 325 Mg Tablet) 650 mg PO Q6H PRN PRN Reason: Pain, Mild (Pain Scale 1-3) Last Admin: 03/26/23 21:43 Dose: 650 mg Documented By: DARREN Albuterol/Ipratropium (Albuterol/Iprat 2.5/0.5mg 3 Ml Ampul.Neb) 3 ml INHALE RQ4H WHILE AWAKE [facility] Last Admin: 03/30/23 11:12 Dose: 3 ml Documented By: JIMBO Albuterol/Ipratropium (Albuterol/Iprat 2.5/0.5mg 3 Ml Ampul.Neb) 3 ml INHALE Q4H PRN PRN Reason: Wheezing Apixaban (Apixaban 5 Mg Tablet) 5 mg PO BID [facility] Last Admin: 03/30/23 08:56 Dose: 5 mg Documented By: MIKE Atorvastatin Calcium (Atorvastatin Calcium 80 Mg Tablet) 80 mg PO DAILY [facility] Last Admin: 03/30/23 08:55 Dose: 80 mg Documented By: MIKE Cyclobenzaprine HCl (Cyclobenzaprine Hcl 5 Mg Tablet) 5 mg PO BID PRN PRN Reason: muscle spasm Dextrose (Dextrose 50 % 25 Gm/50 Ml Syringe) 25 gm IVPUSH Q15M PRN; Protocol PRN Reason: per Hypoglycemia Standing Ord. Docusate Sodium (Docusate Sodium 100 Mg/10 Ml Liquid) 50 mg PO Q6H [facility] Last Admin: 03/30/23 08:55 Dose: 50 mg Documented By: MIKE Escitalopram Oxalate (Escitalopram Oxalate 10 Mg Tablet) 10 mg PO DAILY [facility] Last Admin: 03/30/23 08:56 Dose: 10 mg Documented By: MIKE Fluticasone/Umeclidinium/Vilanterol (Fluticasone/Umeclidinium/Vilanterol 100/62.5/25 Blst.W.Dev) 1 puff INHALE RDAILY [facility] Last Admin: 03/30/23 07:14 Dose: 1 puff Documented By: JIMBO Gabapentin (Gabapentin 600 Mg Tablet) 600 mg PO BID [facility] Last Admin: 03/30/23 08:56 Dose: 600 mg Documented By: MIKE Glucose (Glucose Gel 15 Gm Gel..Gram.) 15 gm PO Q15M PRN; Protocol PRN Reason: per Hypoglycemia Standing Ord. Azithromycin 500 mg/ Sodium (Chloride) 250 mls @ 125 mls/hr IV Q24H [facility] Last Infusion: 03/30/23 00:48 Dose: Infused Documented By: ASHLEY Ceftriaxone Sodium 1 gm/ (Sodium Chloride) 50 mls @ 100 mls/hr IV Q24H [facility] Last Infusion: 03/29/23 21:18 Dose: Infused Documented By: ASHLEY Insulin Human Lispro (Insulin Lispro 100 Unit/Ml 3 Ml Vial) 0 unit SUBCUT QIDACHS [facility]; Protocol Last Admin: 03/29/23 20:31 Dose: 10 unit Documented By: ASHLEY Melatonin (Melatonin 3 Mg Tablet) 6 mg PO BEDTIME PRN PRN Reason: Insomnia Metoprolol Succinate (Metoprolol Succinate Er 25 Mg Tab.Er.24h) 25 mg PO DAILY [facility]; Protocol Last Admin: 03/30/23 08:56 Dose: 25 mg Documented By: MIKE Omeprazole (Omeprazole 20 Mg Capsule.) 20 mg PO DAILY@0630 [facility] Last Admin: 03/30/23 05:14 Dose: 20 mg Documented By: ASHLEY Ondansetron HCl (Ondansetron Hcl 4 Mg/2 Ml Vial) 4 mg IVPUSH Q8H PRN PRN Reason: Nausea and Vomiting Oxycodone HCl (Oxycodone Hcl Immed Release 5 Mg Tablet) 10 mg PO Q6H [facility] Last Admin: 03/30/23 08:56 Dose: 10 mg Documented By: MIKE Sodium Chloride (0.9 % Sodium Chloride Flush 3 Ml Syringe) 3 ml IVFLUSH QSHIFT [facility] Last Admin: 03/30/23 09:07 Dose: 3 ml Documented By: MIKE Vitamin D (Cholecalciferol (Vitamin D3) 25 Mcg Tablet) 25 mcg PO DAILY [facility] Last Admin: 03/29/23 08:07 Dose: 25 mcg Documented By: BRENT Labs 03/30/23 08:15 03/30/23 08:15 Labs: Laboratory Results - last 24 hr 03/29/23 03/29/23 03/30/23 15:46 20:08 07:12 MCV MCH MCHC RDW Plt Count MPV Immature Gran % (Auto) Neut % (Auto) Lymph % (Auto) [place] % (Auto) Eos % (Auto) Baso % (Auto) Lymph # (Auto) [place] # (Auto) Eos # (Auto) Baso # (Auto) Abs Immat Gran (auto) Absolute Neuts (auto) Absolute Nucleated RBC Nucleated RBC % (auto) Anion Gap Estim Creat Clear Calc Estimated GFR POC Glucose 387 H* 399 H* 265 H Fasting Glucose Calcium Total Bilirubin AST ALT Alkaline Phosphatase Total Protein Albumin 03/30/23 03/30/23 08:15 10:52 MCV 87.6 MCH 28.8 MCHC 32.8 RDW 14.4 Plt Count 225 MPV 11.2 Immature Gran % (Auto) 1.0 H Neut % (Auto) 67.4 Lymph % (Auto) 20.6 [place] % (Auto) 6.2 Eos % (Auto) 4.1 H Baso % (Auto) 0.7 Lymph # (Auto) 2.3 [place] # (Auto) 0.7 Eos # (Auto) 0.5 H Baso # (Auto) 0.1 Abs Immat Gran (auto) 0.11 H Absolute Neuts (auto) 7.7 Absolute Nucleated RBC 0.000 Nucleated RBC % (auto) 0.0 Anion Gap 11 L Estim Creat Clear Calc 94.9 Estimated GFR > 60 POC Glucose 356 H* Fasting Glucose 292 H Calcium 9.1 Total Bilirubin 1.1 H AST 13 ALT 15 Alkaline Phosphatase 119 H Total Protein 7.0 Albumin 3.6 Assessment and Plan (1) Pneumonia: Status: Acute (2) PEPE (acute kidney injury): Status: Acute Plan Pt is a 78-year-old male with a PMH significant for?CHF unspecified, HTN, HLD, paroxysmal AFib on Eliquis, cauda equina syndrome (June 2022), chronic lower back pain on chronic opioids, and insulin-dependent diabetes type 2 who presents to the ED with?with multiple complaints. Patient's chief complaint is of leg wounds and pain. Also recently tested positive for COVID with SOB, generalized weakness, and productive cough. Pt will be admitted to the hospital for treatment and further evaluation of PEPE, community-acquired pneumonia, and generalized weakness in the setting of COVID infection. 1; COVID infection with superimposed pnuemonia -ceftriaxone/azithromycin(5) -Duonebs scheduled and prn -titrate O2 to maintain sats greater than equal to 90% 2.PEPE -resolved with volume repletion -follow renals/divalents 3.Lower leg wounds -Wound care consult -improving with antibiotic therapy 4.Paroxysmal AFib -acceptable rate control -Continue Eliquis, metoprolol 5.Insulin-dependent diabetes type 2 -acceptable control on current therapies -lispro correctional scale -adjust as indicated 6.HTN -acceptable control -resume outpatient therapies as clinically indicated DNR/DNI Eliquis Patient will require ongoing hospitalization for IV antibiotics to treat pneumonia in the backdrop of COVID infection along with supplemental O2; will need short-term placement Quality Stroke Does the patient have a stroke diagnosis?: No VTE Prior VTE?: No VTE Risk Level:: Medical - moderate - high VTE Device Contraindication: Treatment Not Indicated VTE Drug Contraindication: N/A - Med Ordered
--- NOTE | 2023-03-30 13:25 | MHC.CM.PN ---
Pt accepted at [facility] for STR, pending bed availability at time of DC. This is pt.'s first choice, updated notes sent to Omer Moy.
[2023-03-30] MEDS: Cholecalciferol (Vitamin D3) 25 MCG TABLET PO (13:39)
[2023-03-30 16:00] LABS: Glucose, Whole Blood 441 mg/dL (60-115)
--- NOTE | 2023-03-30 16:04 | HO.WOUND ---
Wound Consult: Initial 78yr old? admitted to [facility] on 03/26/23 - See progress notes and H&P for detailed history.? Wound consult placed for Bilateral Lower Legs.? Patient agreeable to assessment and photo documentation.? Orders placed Thursday from photo review - todays was assessment in person - no new topical recommendations needed at this time. Left Leg Right Leg Right Ankle Wound Bilateral Lower Legs Etiology: ??Fluid over load - Cellulitis Measurements: Right Lateral Ankle - Suspect unroofed [place] 3cm x 4cm x 0.1cm - red moist wound bed with thin yellow layer covering wound bed Right Young wound - 1.2cm x 0.4cm x 0.1cm dark adherent scab Drainage / Odor: Left young none - right ankle - serosang drainage after dressing removal Edges: ? irregular and attached [place] wound: ? red pink erythema noted - evidence of recent edema with dry firm ridges noted - No Induration, Fluctuance noted Pain: denies Goals of Treatment: ? Moist wound healing Recommendations: 1. Turn and Reposition every 2 hours and as needed for patient comfort.? Use pillows or wedges to support off loading positions. 2. Off Load all bony prominences with use of pillows and heel boots if needed.? Apply Preventative foams where needed. ? 3. Monitor for incontinence and moisture control, use barrier creams when needed for prevention and treatment. 4. Provide adequate and supplemental nutrition.? 5. Order low air loss mattress. 6. When applicable maintain blood glucose levels per Providers order. 7. Bilateral Lower Legs - Elevate lower legs off of surface of bed with use of pillows. Cleanse with NS, Pat dry.? Apply vaseline to both legs, apply layer of Xeroform to open wound beds secure with ABD pad, gauze wrap and tape. Change Daily. Re-consult wound care Nurse for wound deterioration or wound changes.
[2023-03-30 18:04] LABS: Glucose, Whole Blood 454 mg/dL (60-115)
[2023-03-30] MEDS: Insulin Lispro 100 UNIT/ML 3 ML VIAL 10 UNIT SUBCUT (19:29)
[2023-03-30] MEDS: cefTRIAXone sodium 1 GM in 0.9 % Sodium Chloride 50 ML IV (19:30)
[2023-03-30 21:20] LABS: Glucose, Whole Blood 206 mg/dL (60-115)
[2023-03-30] MEDS: Insulin Glargine,Hum.rec.anlog 100 UNIT/ML 10 ML VIAL 10 UNIT SUBCUT (22:03)
[2023-03-30] MEDS: Azithromycin 500 MG in 0.9 % Sodium Chloride 250 ML 125 MG IV (22:03)
[2023-03-31] VITALS (7 sets, daily range): BP systolic 148–167; BP diastolic 67–70; PULSE 72–80; RESP 18; TEMP 36.6–37; O2SAT 92–98
[2023-03-31] MEDS: Docusate Sodium 100 MG/10 ML LIQUID 50 MG PO (04:23)
[2023-03-31] MEDS: oxyCODONE HCl Immed Release 5 MG TABLET 10 MG PO ×2 (04:23→13:40)
[2023-03-31] MEDS: Omeprazole 20 MG CAPSULE.DR PO (04:25)
[2023-03-31 07:45] LABS: Glucose, Whole Blood 240 mg/dL (60-115)
[2023-03-31] MEDS: Cholecalciferol (Vitamin D3) 25 MCG TABLET PO (07:49)
[2023-03-31] MEDS: Atorvastatin Calcium 80 MG TABLET PO (07:49)
[2023-03-31] MEDS: Insulin Lispro 100 UNIT/ML 3 ML VIAL SUBCUT ×2 (07:49→13:39)
[2023-03-31] MEDS: Metoprolol Succinate ER 25 MG TAB.ER.24H PO (07:50)
[2023-03-31] MEDS: Escitalopram Oxalate 10 MG TABLET PO (07:50)
[2023-03-31] MEDS: Apixaban 5 MG TABLET PO (07:50)
[2023-03-31] MEDS: 0.9 % Sodium Chloride Flush 3 ML SYRINGE IVFLUSH (07:50)
[2023-03-31] MEDS: Gabapentin 600 MG TABLET PO (07:50)
[2023-03-31] MEDS: Fluticasone/Umeclidinium/Vilanterol 100/62.5/25 BLST.W.DEV 1 PUFF INHALE (09:03)
[2023-03-31] MEDS: Albuterol/Iprat 2.5/0.5MG 3 ML AMPUL.NEB INHALE ×3 (09:04→15:28)
--- NOTE | 2023-03-31 11:55 | MHC.CM.PN ---
PT ACCEPTED AT [facility] FOR STR, CM SET UP TRANSPORT FOR 2PM HOWEVER WHEN CM CALLED PT'S CELL PHONE IT WAS TRACEY CRUZ WHO WANTED TO BE SURE THAT PT WOULD HAVE A PRIVATE ROOM AND REQUESTING CALL FROM HOSPITALIST, MESSAGE SENT TO HOSPITALIST VIA [facility].
[2023-03-31 12:07] LABS: Glucose, Whole Blood 308 mg/dL (60-115)
--- NOTE | 2023-03-31 14:09 | PM.DS ---
DS: Providers Provider Date of Service: 03/31/23 Date of admission: 03/28/23 14:29 Date of discharge: 03/31/23 Primary care physician: Rufus De Luna MD Consults: 03/26/23 21:09 Consult to Wound Care Routine Reason for consultation: Wound to right lateral malleolus DS: Diagnosis Discharge Diagnosis (1) Pneumonia: Status: Acute (2) PEPE (acute kidney injury): Status: Acute DS: Summary Hospital Course Hospital Course: 78-year-old male with a PMH significant for?CHF unspecified, HTN, HLD, paroxysmal AFib on Eliquis, cauda equina syndrome (June 2022), chronic lower back pain on chronic opioids, and insulin-dependent diabetes type 2 who presents to the ED with?with multiple complaints. Patient's chief complaint is of leg wounds and pain. Patient with a history of insulin-dependent diabetes type 2, he has had lower leg wounds especially on his shins and ankles on and off for the past few years. These have been treated by VNA, but apparently patient has run out of VNA services for now. Patient developed a wound on his right lateral malleolus around 1 week ago and patient has been complaining of pain since that. Six days ago patient tested positive for COVID and at direction of his PCP was treated at home. Patient complains of increased shortness of breath, productive cough, and generalized weakness and fatigue. Patient has becomes fatigued the past few days and he has now no longer able to ambulate on his own. Previously ambulated with the assistance of a walker. Patient states he has been eating and drinking normally. Patient is prescribed Bumex for CHF, but stopped taking it on his own around 2 weeks ago due to constant urination and difficulty controlling his bladder. Denies chest pain/pressure, palpitations. Denies fever, chills, nausea, vomiting, abdominal pain. No headache. In the ED pt was hypertensive up to 177/70, otherwise vitals WNL. Labs were significant for BUN 19, creatinine 1.44, random glucose 263, alk-phos 206, and initial troponin 49.4. No leukocytosis. Stable H&H. No electrolyte abnormalities. BNP 83. Patient tested positive for COVID. CXR showed cardiomegaly and retrocardiac density which could represent an infiltrate. Venous duplex found no DVT demonstrated?inthe bilateral lower extremities. EKG demonstrated accelerated junctional rhythm without evidence of ST elevations or depressions. Pt was treated with albuterol, and ceftriaxone. Pt will be admitted to the hospital for treatment and further evaluation of PEPE, community-acquired pneumonia, and generalized weakness in the setting of COVID infection. [facility] Patient admitted to telemetry and treated with ceftriaxone and azithromycin. Over the course of the next 72 hours oxygen was able to be weaned to off and he continued to do well. Was screened by Physical therapy and deemed appropriate for rehab. Creatinine has now returned to baseline. At this point is medically acceptable for transfer to short-term rehab Time Attestation Discharge coordination time: Greater than 30 minutes Quality: Safe Use of Opioids Does Pt have an Active Cancer Diagnosis on the Problem List?: No Quality: Stroke Does the patient have a stroke diagnosis?: No Physical Exam Vital Signs: Vital Signs: Last Vital Signs Temp 97.9 F 03/31/23 11:30 Pulse 78 03/31/23 11:53 Resp 18 03/31/23 11:53 BP 167/70 H 03/31/23 11:30 Pulse Ox 93 03/31/23 11:30 O2 Del Method Room Air 03/31/23 11:30 BMI result Body Mass Index 45.8 Const: Other: Awake alert no acute distress Resp: Other: Diffuse expiratory wheezes throughout Cardio: Other: No S4; positive S1-S2; no S3 murmurs rubs or gallops GI: Other: Soft nontender nondistended normoactive bowel sounds Extrem: Other: See admission photos... Erythema improving DS: Data Data Completed and Pending Labs on day of discharge: Laboratory Results - last 24 hr 03/30/23 03/30/23 03/30/23 15:55 18:00 21:12 POC Glucose 441 H* 454 H* 206 H 03/31/23 03/31/23 07:35 12:01 POC Glucose 240 H 308 H Preliminary micro results at discharge 03/26/23 18:22 Blood Culture - Preliminary Blood - Venous No growth after 48 hours. 03/26/23 18:22 Blood Culture - Preliminary Blood - Venous No growth after 48 hours. Discharge Plan Discharge Anticipated Discharge Date/Time: 03/31/23 14:06 Patient Disposition: er SNF Discharge Diagnosis: Pneumonia [facility]errals: [facility] [Outside] - 1 Day (SHORT TERM REHAB) Soar,Rufus T, MD [Primary Care Provider] - 1 Week Discharge Medications: New cefuroxime axetil 500 mg tablet 500 mg PO BID 10 Days Qty: 20 0RF Continued losartan 50 mg tablet 50 mg PO DAILY atorvastatin 80 mg tablet 80 mg PO DAILY gabapentin 600 mg tablet 600 mg PO BID metoprolol succinate 50 mg tablet extended release 24 hr 25 mg PO DAILY citalopram 20 mg tablet 20 mg PO DAILY omeprazole 20 mg capsule,delayed release(DR/EC) 20 mg PO DAILY nystatin 100,000 unit/gram powder 1 appl topical BID eplerenone 50 mg tablet 50 mg PO DAILY cyclobenzaprine 5 mg tablet 5 mg PO BID PRN (Reason: muscle spasm) oxycodone 10 mg tablet 10 mg PO Q6H Eliquis 5 mg tablet 5 mg PO BID Humulin R U-500 (Conc) Kwikpen 500 unit/mL (3 mL) insulin pen 45 unit subcut BID Trelegy Ellipta 100-62.5-25 mcg blister with device 1 ea inhalation DAILY docusate sodium 50 mg Capsule 50 mg PO Q6H Rx Instructions: With oxycodone cholecalciferol (vitamin D3) 25 mcg (1,000 unit) Tablet 25 mcg PO DAILY Discharge Orders: Discharge Order (Routine); Ordered 03/31/23 Ordered By: Getachew Heredia Diet: Advance to usual diet Activity on Discharge: As tolerated Stand Alone Forms: Patient Portal Discharge page Care Plan Goals: Continue all meds as outlined on transfer sheet Health Concerns: Complete course of Ceftin 500 twice daily for 10 days Plan of Treatment: Plan of treatment as per receiving facility Assessment: See discharge summary
== END 2023-03-31 16:08 | disposition skilled nursing facility (03) | DRG 193 ==
LOC: HO.ED 18:57 → HO.EDOVER 21:34 → HO.IMC 03-27 13:01
PROVIDERS: Physician Assistant; Admitting Provider Student in an Organized Health Care Education/Training Program; Emergency Provider Emergency Medicine; PCP Internal Medicine; Visit Provider Hospitalist
DX: J18.9 Pneumonia, unspecified organism (principal); U07.1 COVID-19; I87.313 Chronic venous hypertension (idiopathic) with ulcer of bilateral lower extremity; N17.9 Acute kidney failure, unspecified; Z68.42 Body mass index [BMI] 45.0-49.9, adult; L97.829 Non-pressure chronic ulcer of other part of left lower leg with unspecified severity; L97.319 Non-pressure chronic ulcer of right ankle with unspecified severity; I11.0 Hypertensive heart disease with heart failure; E11.9 Type 2 diabetes mellitus without complications; M54.9 Dorsalgia, unspecified; G89.29 Other chronic pain; I48.0 Paroxysmal atrial fibrillation; I50.9 Heart failure, unspecified; T50.1X6A Underdosing of loop [high-ceiling] diuretics, initial encounter; Z91.128 Patient's intentional underdosing of medication regimen for other reason; E78.5 Hyperlipidemia, unspecified; E66.01 Morbid (severe) obesity due to excess calories; Z66 Do not resuscitate; Z79.4 Long term (current) use of insulin; Z79.01 Long term (current) use of anticoagulants; Z79.899 Other long term (current) drug therapy
CPT/HCPCS: 36415; 71045; 80048; 80053; 80076; 81001; 81003; 82947; 83605; 83735; 83880; 84484; 85025; 85610; 85652; 86140; 87040; 87502; 87635; 93005; 93970; 94640; 94664; 97162; 99222; 99285; J0360; J0456; J0696

== ENCOUNTER → 2023-03-26 18:01 | Outpatient (BNV) | payer MEDICARE, SELFPAY | PROVIDERS: Admitting Provider Student in an Organized Health Care Education/Training Program; Emergency Provider Emergency Medicine; PCP Internal Medicine; Visit Provider Internal Medicine | DX: R60.0 Localized edema (principal) | CPT/HCPCS: 93010 ==

== ENCOUNTER → 2023-03-26 20:18 | Outpatient (BNV) | payer MEDICARE, BC, SELFPAY | PROVIDERS: Admitting Provider Student in an Organized Health Care Education/Training Program; Emergency Provider Emergency Medicine; PCP Internal Medicine; Visit Provider Student in an Organized Health Care Education/Training Program | DX: U07.1 COVID-19 (principal); N17.9 Acute kidney failure, unspecified; E11.59 Type 2 diabetes mellitus with other circulatory complications; J18.9 Pneumonia, unspecified organism | CPT/HCPCS: 99223; 99232; 99239 ==

== ENCOUNTER 2023-04-20 18:20 | Emergency (ER) | payer MEDICARE, SELFPAY ==
--- NOTE | ~2023-04-20 | CT_ITS ---
EXAMINATION: CT PELVIS WITHOUT CONTRAST CLINICAL INFORMATION: Right hip pain COMPARISON: None available. TECHNIQUE: Helical scanning was performed with submillimeter collimation through the pelvis. Sagittal and coronal multiplanar 2-D reconstructions were obtained. This CT examination was performed using dose optimization techniques as appropriate, variously including the following: *Automated exposure control *Adjustment of mA and/or kV according to patient size (this includes techniques or standardized protocols for targeted exams where dose is matched to indication/reason for exam; i.e. extremities or head) *Use of iterative reconstruction technique DLP: 3931 mGy-cm FINDINGS: Alignment across the hips is anatomic with moderate joint space narrowing and mild acetabular spurring. No acute fracture is seen. There is also degenerative change at the pubic symphysis. Bilateral sacroiliac joints appear symmetric with mild degenerative change. Endplate osteophytes and facet arthropathy noted in the visualized lower lumbar spine. Scattered vascular calcification is present. CT/CT pelvis wo IV con IMPRESSION: No acute findings identified. Degenerative changes of the hips as described above.
--- NOTE | ~2023-04-20 | CT_ITS ---
EXAMINATION: CT cervical spine wo IV con, CT lumbar spine wo IV con, CT head/brain wo IV con INDICATION INFORMATION: Reason for Exam fall, pain COMPARISON: None TECHNIQUE: Separate noncontrast CT examinations of the head, cervical, and lumbar spine were performed. Coronal and sagittal images were created for each examination at the technologist workstation. This CT examination was performed using dose optimization techniques as appropriate, variously including the following: *Automated exposure control *Adjustment of mA and/or kV according to patient size (this includes techniques or standardized protocols for targeted exams where dose is matched to indication/reason for exam; i.e. extremities or head) *Use of iterative reconstruction technique DLP: 3931.46 mGy-cm FINDINGS: Head: Motion degraded examination compromising diagnostic assessment. Moderate generalized parenchymal volume loss. Patchy periventricular and deep white matter hypoattenuation is nonspecific but likely reflects sequelae of moderate chronic microangiopathy. No large territorial edematous infarction, noting motion artifact significantly compromises assessment of portions of the brain parenchyma, particularly the temporal lobes and posterior fossa. Suspected chronic lacunar infarcts in the left cerebellum. Intracranial calcific atherosclerosis. No acute intracranial hemorrhage or extra-axial fluid collection. No mass lesion, significant mass effect, or herniation pattern. The orbits are grossly normal. Air-fluid level in the right sphenoid sinus. Underpneumatized and sclerotic right mastoid air cells with associated right mastoid and middle ear effusion contiguous with a retracted tympanic membrane. Absent right ossicular chain, likely surgically resected or chronically eroded and can be correlated with clinical/surgical history. Nondiagnostic assessment for calvarial/skull base fracture. Cervical spine: Motion degraded examination compromising diagnostic assessment for subtle fractures. No acute displaced fracture in the cervical spine. No prevertebral soft tissue swelling. The craniocervical junction is intact. The cervical lordosis is preserved. There is no significant spondylolisthesis. Vertebral body heights are normal without acute compression fracture or traumatic posterior element subluxation. Cervical spondylosis. Limited diagnostic assessment of the spinal canal without intrathecal contrast. Retropharyngeal course of the right common carotid and proximal internal and external carotid arteries and mid to distal left ICA. Normal appearance of the paraspinal soft tissues. Visualized lung apices are clear. Normal appearance of the thyroid gland. Lumbar spine: No evidence of acute osseous injury in the lumbar spine, noting artifact from patient's body habitus somewhat limits assessment. No post traumatic malalignment. Vertebral body heights are maintained. Straightening of the normal lumbar lordosis. Multilevel spondylitic changes in the lumbar spine. No diagnostic assessment of the spinal canal in the absence of intrathecal contrast. Disc osteophyte complex and facet arthrosis contributes to severe left and moderate to severe right L5-S1 neural foraminal stenosis with compression of the exiting left greater than right L5 nerve roots. Additional multilevel mild or neural foraminal stenosis with mass effect along the exiting nerve roots would be better diagnostically assessed on lumbar spine MRI. Mild fatty atrophy of the paraspinal musculature. Scattered calcific atherosclerotic disease. CT/CT cervical spine wo IV con IMPRESSION: 1. No CT evidence of acute intracranial injury within limitations of motion artifact. 2. Suspected chronic lacunar infarcts in the left cerebellum. 3. Underpneumatized and sclerotic right mastoid air cells with associated right mastoid and middle ear effusion contiguous with a retracted tympanic membrane. Absent right ossicular chain, likely surgically resected or chronically eroded and can be correlated with clinical/surgical history. 4. No evidence of acute traumatic injury in the cervical or lumbar spine within limitations of the examination. 5. Spondylitic changes in the cervical and lumbar spine. Severe left and moderate to severe right L5-S1 neural foraminal stenosis with compression of the exiting left greater than right L5 nerve roots.
[2023-04-20 18:35] VITALS: BP 160/92; PULSE 98; O2SAT 96
--- NOTE | 2023-04-20 18:38 | ECG_ITS ---
Test Reason : FALL Blood Pressure : / mmHG Vent. Rate : 085 BPM Atrial Rate : 000 BPM P-R Int : 000 ms QRS Dur : 102 ms QT Int : 384 ms P-R-T Axes : 000 027 015 degrees QTc Int : 456 ms Atrial fibrillation Abnormal ECG When compared with ECG of 26-MAR-2023 18:40, Previous ECG has undetermined rhythm, needs review Referred By: Veronica Stoddard Electronically Signed By:Travis Borges
[2023-04-20 18:47] VITALS: BP 199/87; PULSE 87; RESP 18; TEMP 37.1; O2SAT 98; BMI 47.4
[2023-04-20 19:36] LABS: MANUAL DIFF FLAG NO
[2023-04-20] MEDS: Morphine Sulfate 4 MG/ML CARTRIDGE IVPUSH (19:37)
[2023-04-20] MEDS: ondansetron HCL 4 MG/2 ML VIAL IVPUSH (19:37)
[2023-04-20 19:38] LABS: Basophils Absolute Auto 0.1 X10*3/uL (0.0-0.2); Basophils Percent Auto 0.5 % (0-2); Eosinophils Absolute Auto 0.4 X10*3/uL (0.0-0.4); Eosinophils Percent Auto 3.5 % (0-4); Hematocrit 46.7 % (42.0-52.0); Hemoglobin 15.4 g/dl (14.0-18.0); Imm Gran Abs Auto 0.09 X10*3/uL (0.00-0.03); Imm Gran Pct Auto 0.8 % (0.0-0.4); Lymphocytes Percent Auto 18.3 % (20-40); Mean Corpuscular Hemoglobin 28.8 pg (27.0-33.0); Mean Corpuscular Volume 87.3 fL (80.0-98.0); Mean Platelet Volume 10.9 fL (9.4-12.4); Monocytes Absolute Auto 0.6 X10*3/uL (0.1-1.2); Monocytes Percent Auto 5.4 % (2-11); Neutrophils Absolute Auto 7.9 x10*3/uL (2.0-8.3); Neutrophils Percent Auto 71.5 % (45-73); Platelet Count 232 X10*3/uL (160-400); Red Blood Count 5.35 X10*6/uL (4.60-5.80); Red Cell Distribution Width 14.9 % (11.0-16.0); White Blood Count 11.1 X10*3/uL (4.8-10.8)
[2023-04-20 19:55] VITALS: PULSE 98
[2023-04-20 19:55] LABS: Alanine Aminotransferase 18 U/L (0-40); Albumin Level 3.6 g/dL (3.5-5.0); Alkaline Phosphatase 130 U/L (39-117); Anion Gap 14 (12-20); Aspartate Amino Transferase 27 U/L (5-37); Bilirubin Total 0.7 mg/dL (0.0-1.0); Blood Urea Nitrogen 16 mg/dL (9-16); Calcium 9.1 mg/dL (8.4-10.2); Carbon Dioxide 28 mmol/L (22-29); Chloride 103 mmol/L (96-108); Creatinine Clr Calc Pharmacy 96.9; Estimated Glomerular Filt Rate > 60; Glucose Random 114 mg/dL (60-115); Potassium 4.4 mmol/L (3.3-5.1); Sodium 141 mmol/L (135-145); Total Protein 7.5 g/dL (6.5-8.0)
[2023-04-20 19:58] LABS: Appearance Urine Clear; Color Urine Yellow; Glucose Urine UA Negative (Negative); Leukocyte Esterase Urine Negative (Negative); Nitrite Urine Negative (Negative); UMIC TRIGGER UACC YES; Urine Blood Negative (Negative); Urine Ketones Negative (Negative); Urine Protein 30 (1+) mg/dL (Neg-Trace)
[2023-04-20 20:06] VITALS: PULSE 92
[2023-04-20 20:12] LABS: COVID-19 Test Negative (Negative); IDNOW Serial# 08D9AD1C; IDNOW Serial# 152EDE1D; Influenza A Negative (Negative); Influenza B2 Negative (Negative)
--- NOTE | 2023-04-20 20:13 | ED_ITS ---
HPI - Fall General Chief Complaint: Fall Stated Complaint: snf,fell getting out of bed, 09/15 low back pain Time Seen by Provider: 04/20/23 18:36 Source: patient Mode of arrival: EMS Limitations: no limitations History of Present Illness HPI Narrative: Patient is a 78-year-old male who presents to the emergency department for evaluation after an unwitnessed fall. He comes from [facility]. He is currently there after recent inpatient admission at this hospital. Please reports that he was attempting to get out of bed today, he was using his walker, upon turning to sit in the chair he reports having lost his balance due to a chronic weakness in his legs, resulting in a fall landing on his back. He does endorse head strike but denies loss of consciousness. He is anticoagulated with Eliquis due to atrial fibrillation. His is at bedside at the time of this examination and she reports a longstanding history of unsteady gait and weakness in his legs. She states that over the past year he has been evaluated outpatient due to cauda equina, reportedly this was ?evaluated too late and he can not have surgery?. He is reporting pain to the lower back as well as the right hip/leg. Related Data Home Medications Medication Instructions Recorded Confirmed apixaban 5 mg tablet (Eliquis) 5 mg PO BID 03/26/23 04/21/23 atorvastatin 80 mg tablet 80 mg PO DAILY 03/26/23 04/21/23 cholecalciferol (vitamin D3) 25 25 mcg PO DAILY 03/26/23 04/21/23 mcg (1,000 unit) tablet citalopram 20 mg tablet 20 mg PO DAILY 03/26/23 04/21/23 cyclobenzaprine 5 mg tablet 5 mg PO BID PRN muscle spasm 03/26/23 04/21/23 docusate sodium 50 mg capsule 50 mg PO Q6H 03/26/23 04/21/23 eplerenone 50 mg tablet 50 mg PO DAILY 03/26/23 04/21/23 fluticasone fur. 100 mcg-umeclid 1 ea inhalation DAILY 03/26/23 04/21/23 62.5 mcg-vilant 25 mcg inhalat.powder (Trelegy Ellipta) gabapentin 600 mg tablet 600 mg PO BID 03/26/23 04/21/23 insulin regular hum U-500 conc 500 45 unit subcut BID 03/26/23 04/21/23 unit/mL(3 mL) subcut pen (Humulin R U-500 (Conc) Insulin Kwikpen) losartan 50 mg tablet 50 mg PO DAILY 03/26/23 04/21/23 metoprolol succinate 50 mg 25 mg PO DAILY 03/26/23 04/21/23 tablet,extended release 24 hr nystatin 100,000 unit/gram topical 1 appl topical BID 03/26/23 04/21/23 powder omeprazole 20 mg capsule,delayed 20 mg PO DAILY 03/26/23 04/21/23 release oxycodone 10 mg tablet 10 mg PO Q6H pain 03/26/23 04/21/23 Allergies Allergy/AdvReac Type Severity Reaction Status Date / Time No Known Allergies Allergy Verified 03/26/23 17:50 [facility] Past Medical History Medical History (Updated 04/21/23 @ 01:20 by Veronica Stoddard CNP) Paroxysmal A-fib Cauda equina compression CHF (congestive heart failure) Social History Social History Household Members: Spouse Unable to assess alcohol history related to: Unknown Alcohol intake: former Patient Tobacco Use Status: Never used Tobacco Smoked in Last 30 Days: No Use of substances other than those prescribed or required for medical reasons: No Advance Directives: No Advance Directives Information Provided: No service: Yes Physical Exam 2 Vital Signs: Vital Signs: Last Vital Signs Temp 98.7 F 04/20/23 18:47 Pulse 80 04/20/23 23:48 Resp 18 04/20/23 23:48 BP 122/92 H 04/20/23 23:48 Pulse Ox 90 L 04/20/23 23:48 O2 Del Method Room Air 04/20/23 23:48 BMI result Body Mass Index 47.4 Course Reevaluation(s) Reevaluation #1: CT of the head without acute intracranial abnormality, chronic lacunar infarcts of the left cerebellum, cervical spine without acute fracture/subluxation, severe left and moderate to severe right L5-S1 neural foraminal stenosis with compression of the exiting nerve roots, chronic in nature. Pain with improvement to 5/10 after receiving oxycodone. is at bedside she is adamant that he can not return back to [facility] she does not feel that he is safe there this is his 2nd fall since being there. She would like him evaluated for placement at a different short-term rehab. Will place orders for physical therapy evaluation in case management consult. Placed in physician observation so that evaluation can ensue. Time: 21:18 Medications Administered Discontinued Medications Generic Name Dose Route Start Last Admin Trade Name Chris PRN Reason Stop Dose Admin Morphine Sulfate 4 mg 04/20/23 19:05 04/20/23 19:37 Morphine Sulfate 4 Mg/Ml Cartridge IVPUSH 04/20/23 19:06 4 mg ONCE ONE Administration Protocol Ondansetron HCl 4 mg 04/20/23 19:05 04/20/23 19:37 Ondansetron Hcl 4 Mg/2 Ml Vial IVPUSH 04/20/23 19:06 4 mg ONCE ONE Administration Medical Decision Making Medical Decision Making [facility] Narrative: Patient is a 78-year-old male with past medical history of insulin-dependent type 2 diabetes, hypertension, CHF, COPD, atrial fibrillation on Eliquis, recent history of COVID-19, cauda equina (June 2022), chronic lower back pain on chronic opioids presenting to emergency department via EMS after an unwitnessed fall as per HPI. Plan to obtain basic labs to exclude alternative etiology for fall in addition to EKG. CT head cervical spine to exclude ICH/SDH/fracture/subluxation, CT pelvis and lumbar spine to exclude fracture/dislocation. Pain management. Disposition pending results. Differential Diagnosis Differential Diagnoses: The differential diagnosis associated with the presentation includes (Mechanical fall, weakness, viral illness) Admission/Observation Consideration of admission/observation: Escalation of care including admission/observation considered (See narrative above and course narrative for further detail) Lab Data [facility] Lab Attestation statement: I reviewed the patient's lab results. CBC reveals a mild leukocytosis of 11.1, suspect inflammatory in nature. CMP overall unremarkable. COVID-19/influenza testing negative. Urinalysis without evidence of UTI. 04/20/23 19:32 04/20/23 19:32 Labs: Lab Results 04/20/23 04/20/23 Range/Units 19:32 19:42 WBC 11.1 H (4.8-10.8) X10*3/uL RBC 5.35 (4.60-5.80) X10*6/uL Hgb 15.4 (14.0-18.0) g/dl Hct 46.7 (42.0-52.0) % MCV 87.3 (80.0-98.0) fL MCH 28.8 (27.0-33.0) pg MCHC 33.0 (31.0-36.0) g/dl RDW 14.9 (11.0-16.0) % Plt Count 232 (160-400) X10*3/uL MPV 10.9 (9.4-12.4) fL Immature Gran % (Auto) 0.8 H (0.0-0.4) % Neut % (Auto) 71.5 (45-73) % Lymph % (Auto) 18.3 L (20-40) % [place] % (Auto) 5.4 (2-11) % Eos % (Auto) 3.5 (0-4) % Baso % (Auto) 0.5 (0-2) % Lymph # (Auto) 2.0 (1.2-4.9) X10*3/uL [place] # (Auto) 0.6 (0.1-1.2) X10*3/uL Eos # (Auto) 0.4 (0.0-0.4) X10*3/uL Baso # (Auto) 0.1 (0.0-0.2) X10*3/uL Abs Immat Gran (auto) 0.09 H (0.00-0.03) X10*3/uL Absolute Neuts (auto) 7.9 (2.0-8.3) x10*3/uL Absolute Nucleated RBC 0.000 (0.0-0.012) X10*3/uL Nucleated RBC % (auto) 0.0 (0.0-0.2) /100WBC Sodium 141 (135-145) mmol/L Potassium 4.4 (3.3-5.1) mmol/L Chloride 103 (96-108) mmol/L Carbon Dioxide 28 (22-29) mmol/L Anion Gap 14 (12-20) BUN 16 (9-16) mg/dL Creatinine 0.88 (0.5-1.4) mg/dL Estim Creat Clear Calc 96.9 Estimated GFR > 60 Random Glucose 114 (60-115) mg/dL Calcium 9.1 (8.4-10.2) mg/dL Total Bilirubin 0.7 (0.0-1.0) mg/dL AST 27 (5-37) U/L ALT 18 (0-40) U/L Alkaline Phosphatase 130 H (39-117) U/L B-Natriuretic Peptide 213 H (<100) pg/mL Total Protein 7.5 (6.5-8.0) g/dL Albumin 3.6 (3.5-5.0) g/dL Urine Color Yellow Urine Appearance Clear Urine pH 6.0 (5.0-9.0) Ur Specific [place] 1.020 (1.005-1.025) Urine Protein 30 (1+) H (Neg-Trace) mg/dL Urine Glucose (UA) Negative (Negative) mg/dL Urine Ketones Negative (Negative) mg/dL Urine Blood Negative (Negative) Urine Nitrite Negative (Negative) Ur Leukocyte Esterase Negative (Negative) Urine RBC 0-2 (0-2) /HPF Urine WBC 0-5 (0-5) /HPF Ur Squamous Epith Cells 0-2 (0-2) /HPF Urine Bacteria None Seen (None Seen) Hyaline Casts 0-2 (0-2) /LPF COVID-19 (DANUTA) Negative (Negative) COVID-19 Clin Com See Note Influenza Type A (CHAS) Negative (Negative) Influenza Type B (CHAS) Negative (Negative) Influenza A & B Note See Note Independent Interpretation I performed an independent interpretation of an: EKG and CT Scan (No ICH/fracture.) Interpretation: Rate:85 Rhythm:? Atrial fibrillation [place]:? Normal Normal QRS complex.?? ST T wave :??No ST elevation no ST depression qTC:456 The study has been interpreted contemporaneously by me. Radiology Impression Discussion of test interpretation with radiology: I have reviewed the radiologist's reading. Radiologist Impression: CT/CT head/brain wo IV con IMPRESSION: 1. No CT evidence of acute intracranial injury within limitations of motion artifact. 2. Suspected chronic lacunar infarcts in the left cerebellum. 3. Underpneumatized and sclerotic right mastoid air cells with associated right mastoid and middle ear effusion contiguous with a retracted tympanic membrane. Absent right ossicular chain, likely surgically resected or chronically eroded and can be correlated with clinical/surgical history. 4. No evidence of acute traumatic injury in the cervical or lumbar spine within limitations of the examination. 5. Spondylitic changes in the cervical and lumbar spine. Severe left and moderate to severe right L5-S1 neural foraminal stenosis with compression of the exiting left greater than right L5 nerve roots. Independent Historian Clinical information obtained from an independent historian. History obtained from or confirmed by: EMS External Record Review External record reviewed: Inpatient record and Outpatient record Critical Care Time Critical Care Time Critical Care Time: Yes Total Critical Care Time: 35 Attestation: I personally attest to this critical care time spent taking care of the patient exclusive of all other billable procedures was approximately 35 minutes including initial evaluation of patient, ordering tests, CT interpretation, EKG interpretation, medical consultation, documentation, re-evaluation. Discharge Plan Discharge Clinical Impression: Fall, Lumbar canal stenosis Patient Disposition: Still a Patient Prescriptions: No Action losartan 50 mg tablet 50 mg PO DAILY atorvastatin 80 mg tablet 80 mg PO DAILY gabapentin 600 mg tablet 600 mg PO BID metoprolol succinate 50 mg tablet extended release 24 hr 25 mg PO DAILY citalopram 20 mg tablet 20 mg PO DAILY omeprazole 20 mg capsule,delayed release(DR/EC) 20 mg PO DAILY nystatin 100,000 unit/gram powder 1 appl topical BID eplerenone 50 mg tablet 50 mg PO DAILY cyclobenzaprine 5 mg tablet 5 mg PO BID PRN (Reason: muscle spasm) oxycodone 10 mg tablet 10 mg PO Q6H Eliquis 5 mg tablet 5 mg PO BID Humulin R U-500 (Conc) Kwikpen 500 unit/mL (3 mL) insulin pen 45 unit subcut BID Trelegy Ellipta 100-62.5-25 mcg blister with device 1 ea inhalation DAILY docusate sodium 50 mg Capsule 50 mg PO Q6H Rx Instructions: With oxycodone cholecalciferol (vitamin D3) 25 mcg (1,000 unit) Tablet 25 mcg PO DAILY
--- NOTE | 2023-04-20 20:23 | PC.NURSE ---
pt afib on monitor hx of; on eliquis. same on ekg. Reece PAPER [employer]ATER aware.
[2023-04-20 20:26] LABS: Bacteria Urine None Seen (None Seen); Hyaline Casts Urine 0-2 /LPF (0-2); RBC Urine 0-2 /HPF (0-2); Squamous Epithelial Cell Urine 0-2 /HPF (0-2); WBC Urine 0-5 /HPF (0-5)
[2023-04-20 20:49] LABS: B Type Natriuretic Peptide 213 pg/mL (<100)
[2023-04-20 23:48] VITALS: BP 122/92; PULSE 80; RESP 18; O2SAT 90
--- NOTE | 2023-04-21 01:02 | PC.NURSE ---
diet order entered per facility order/Reece IMPLEMENTATION COORDINATOR approval. med rec completed with snf list and pt.
[2023-04-21] MEDS: Docusate Sodium 100 MG/10 ML LIQUID 50 MG PO (04:15)
[2023-04-21] MEDS: oxyCODONE HCl Immed Release 5 MG TABLET 10 MG PO ×2 (04:16→11:24)
[2023-04-21 04:18] VITALS: BP 141/67; PULSE 75; RESP 15; TEMP 36.6; O2SAT 95
[2023-04-21] MEDS: Fluticasone/Umeclidinium/Vilanterol 100/62.5/25 BLST.W.DEV 1 PUFF INHALE (07:59)
[2023-04-21 08:01] VITALS: PULSE 59; RESP 16; O2SAT 89
[2023-04-21 08:33] VITALS: BP 155/82; PULSE 91; RESP 16; TEMP 36.3; O2SAT 92
--- NOTE | 2023-04-21 08:33 | PC.NURSE ---
this RN resumed care of pt at this time. vss and up to date at this time. pt c/o 8/10 back pain at this time. pt had PT eval at this time. per PT - pt was unable to ambulate w/ a steady gait. 1:1 assist needed to ambulate w/ walker and gait belt. pt repositioned to comfort post PT evaluation. sitting upright eating breakfast at this time. no sob/wob noted. respirations even and unlabored. call reynolds placed within reach.
--- NOTE | 2023-04-21 08:37 | MHC.EDTECH ---
T/w and physical therapist assisted Pt out of bed into wheelchair and into bathroom per request. Bedding change done by PT while t/w stood by bathroom for Pt. PT, RN and t/w assisted Pt back into bed, repositioned/boosted. Breakfast tray set up for Pt. Pt eating at this time.
--- NOTE | 2023-04-21 08:38 | PC.NURSE ---
pharmacy called/notified that time needed to be adjusted on pt's scheduled oxycodone and docusate d/t time that previous RN administered. original medications not given/note written.
--- NOTE | 2023-04-21 10:28 | PHA.MEDREC ---
Pharmacy Consult ? Medication Reconciliation Pharmacy has completed the medication reconciliation. Met with patient and his , his was able to discuss his medication with me. states patient came from a rehab, and was unsure of his last Eliquis dose. She also stated patient is on 2 lidocaine patches, and only takes one cyclobenzaprine prn
--- NOTE | 2023-04-21 10:29 | MHC.CM.ED ---
Addendum entered by Maribel Pickens 04/21/23 15:39: Per [facility] medical record from 04/2022. MRI of spine was done. Showed degenative disc changes, no cord compression. No cauda equina was mentioned at that time. Patient d/c'd from [facility] to acute rehab. Original Note: Received case management consult overnight. Patient came to the ER due to a fall at [facility]. Patient has been at [facility] since 04/01. Patient has experienced 2 falls while at [facility]. Originally patient's , Katie, was declining patient to return to [facility] due to falls. Per Katie, patient had testing at [facility] ER about a year ago that was missed and showed Cauda Equina. Patient and Katie were not made aware of this at that time. They had a follow up appointment with a child welfare specialist about 6 months later at [facility]. That provider explained patient was out of the time line for treatment. Essentially emergency surgery should have been performed within 6 hours of this finding. Patient returned to [facility] for [facility]. Patient has continued to fall and been incontinent. Patient also saw another spine provider that stated the same. Katie doesn't understand why patient still continues to fall and have incontinent issues. T/W explained patient had 2 different spine providers explained there was nothing that could be done due to Cauda Equina. Katie stated I wish someone told us that. Patient and Katie clearly do not understand the permanence of patient's baseline functioning despite this information being provided. T/W reiterated this information to patient and . At this time, patient and would like to return to [facility] with a follow up appointment at [facility] pain management. T/W attempted to arrange outpatient [facility] pain management appointment. Office is unable to take referrals from the ER. Referral needs to come from [facility]. [facility] has been made aware of this. Patient, Katie, Kelly BRYSON and Anupama KATE aware. Continue to monitor for d/c needs.
[2023-04-21 10:56] LABS: Glucose, Whole Blood 241 mg/dL (60-115)
[2023-04-21] MEDS: Escitalopram Oxalate 10 MG TABLET PO (11:25)
[2023-04-21] MEDS: Spironolactone 25 MG TABLET PO (11:26)
[2023-04-21] MEDS: Atorvastatin Calcium 80 MG TABLET PO (11:26)
[2023-04-21] MEDS: Cholecalciferol (Vitamin D3) 25 MCG TABLET PO (11:26)
[2023-04-21] MEDS: Apixaban 5 MG TABLET PO (11:27)
[2023-04-21] MEDS: Gabapentin 600 MG TABLET PO (11:28)
[2023-04-21] MEDS: Metoprolol Succinate ER 25 MG TAB.ER.24H PO (11:28)
[2023-04-21] MEDS: Losartan Potassium 50 MG TABLET PO (11:28)
[2023-04-21] MEDS: Omeprazole 20 MG CAPSULE.DR PO (11:28)
[2023-04-21] MEDS: Insulin Regular, Human 100 UNIT/ML 3 ML VIAL 45 UNIT IVPUSH (11:29)
[2023-04-21] MEDS: Nystatin Powder 15 GM BOTTLE 1 APPL TOPICAL (11:29)
== END 2023-04-21 15:19 | disposition skilled nursing facility (03) ==
PROVIDERS: Nurse Practitioner Family; Emergency Provider Emergency Medicine; PCP Family Medicine
DX: M48.061 Spinal stenosis, lumbar region without neurogenic claudication (principal); R51.9 Headache, unspecified; M54.2 Cervicalgia; R26.2 Difficulty in walking, not elsewhere classified; R06.02 Shortness of breath; R10.2 Pelvic and perineal pain; R94.31 Abnormal electrocardiogram [ECG] [EKG]; Z11.52 Encounter for screening for COVID-19; Z79.899 Other long term (current) drug therapy
CPT/HCPCS: 70450; 72125; 72132; 72192; 80053; 81001; 81003; 82947; 83880; 85025; 87502; 87635; 93005; 94640; 96374; 96375; 97163; 99285; J2270; J2405

== ENCOUNTER → 2023-04-20 18:38 | Outpatient (BNV) | payer MEDICARE, SELFPAY | PROVIDERS: Emergency Provider Emergency Medicine; PCP Family Medicine; Visit Provider Internal Medicine Cardiovascular Disease | DX: R94.31 Abnormal electrocardiogram [ECG] [EKG] (principal) | CPT/HCPCS: 93010 ==

== ENCOUNTER 2023-05-06 15:09 | Emergency (ER) | payer MEDICARE, SELFPAY ==
[2023-05-06 15:20] VITALS: BP 138/74; PULSE 83; RESP 16; TEMP 36.4; O2SAT 95; BMI 49.2
--- NOTE | 2023-05-06 15:27 | PC.NURSE ---
Per patient's patient has been falling frequently, was recently here & other ERs, sent to [place] for rehab. At appointment with Dr. Winchester today where told them patient has to be sent to ER for immediate surgical intervention.
--- NOTE | 2023-05-06 15:59 | ED_ITS ---
HPI - Back Pain/Injury General Chief Complaint: Back Pain/Injury Stated Complaint: came from neuro, needed surg t-1 Time Seen by Provider: 05/06/23 15:57 Source: patient Mode of arrival: wheelchair Limitations: no limitations History of Present Illness HPI Narrative: 78-year-old male with a PMH significant for CHF unspecified, HTN, HLD, paroxysmal AFib on Eliquis, cauda equina syndrome (June 2022), chronic lower back pain on chronic opioids, and insulin-dependent diabetes type 2 who presents to the ED evaluation of abnormal MRI done on 04/30/2023 compared to an MRI done on 04/27/2022. Patient was seen by his neurologist Dr. Winchester today for his chronic back pain Dr. Winchester review the patient's recent MRI felt that the patient may require neurosurgical consult and refer the patient to the emergency department. The MRI report most significant finding is as follows: L4-L5: Diffuse disc bulge with superimposed large central extrusion, increased compared to prior, resulting in severe spinal canal stenosis with complete effacement of the thecal sac. Extruded disc material measures approximately 14 x 10 mm. There is mass effect upon the caudal equina nerve root. Mild foraminal stenosis The patient is hard of hearing but does questions appropriately in the information mainly comes from the patient's . 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 Over the past year his back pain is gotten worse to the point where he has had difficulty walking and this is gotten worse over the last 8 months. He is able to stand and walk approximately 5 ft using a walker but needs at least 2 person assist. Patient has been complain of increased pain over the last month with increased pain that radiates down his right leg to the foot. Patient has had incontinence of urine for year and this is unchanged. He can urinate when he needs to. He denies numbness of his lower extremities but does have weakness in the right leg compared to the left. The patient was hospitalized here at [facility] from 03/26/2023 until 03/31/2023 for acute kidney injury, COVID positive , community-acquired pneumonia and generalized weakness. He was treated with azithromycin and ceftriaxone and on oxygen for 72 hours. Patient was then discharged to [facility] for rehab and has been there since his discharge. Apparently the nurse practitioner at [facility] was concerned about his back pain in ordered the MRI which was done at [facility] on 04/28. According to his , the patient was admitted at [facility] proximally 6-8 months prior and at that time was seen by the neurosurgical service and was told that he was a poor candidate for any surgical procedure and that they did not feel that the patient can be safely operated on secondary to his medical conditions. I would also discuss the patient's presentation with our neurologist, Dr. Winchester and he felt that the new finding would require evaluation by a neurosurgeon in consideration for neurosurgical intervention since medical management is limited. Related Data Home Medications Medication Instructions Recorded Confirmed apixaban 5 mg tablet (Eliquis) 5 mg PO BID 03/26/23 04/21/23 atorvastatin 80 mg tablet 80 mg PO DAILY 03/26/23 04/21/23 cholecalciferol (vitamin D3) 25 25 mcg PO DAILY 03/26/23 04/21/23 mcg (1,000 unit) tablet citalopram 20 mg tablet 20 mg PO DAILY 03/26/23 04/21/23 cyclobenzaprine 5 mg tablet 5 mg PO DAILY PRN muscle spasm 03/26/23 04/21/23 docusate sodium 50 mg capsule 50 mg PO Q6H PRN WITH OXYCODONE 03/26/23 04/21/23 eplerenone 50 mg tablet 50 mg PO DAILY 03/26/23 04/21/23 fluticasone fur. 100 mcg-umeclid 1 ea inhalation DAILY 03/26/23 04/21/23 62.5 mcg-vilant 25 mcg inhalat.powder (Trelegy Ellipta) gabapentin 600 mg tablet 600 mg PO BID 03/26/23 04/21/23 insulin regular hum U-500 conc 500 45 unit subcut BID 03/26/23 04/21/23 unit/mL(3 mL) subcut pen (Humulin R U-500 (Conc) Insulin Kwikpen) losartan 50 mg tablet 50 mg PO DAILY 03/26/23 04/21/23 metoprolol succinate 50 mg 25 mg PO DAILY 03/26/23 04/21/23 tablet,extended release 24 hr nystatin 100,000 unit/gram topical 1 appl topical BID 03/26/23 04/21/23 powder omeprazole 20 mg capsule,delayed 20 mg PO DAILY 03/26/23 04/21/23 release oxycodone 10 mg tablet 10 mg PO Q6H pain 03/26/23 04/21/23 lidocaine 4 % topical patch 2 patch topical DAILY PRN Pain, 04/21/23 04/21/23 Mild Allergies Allergy/AdvReac Type Severity Reaction Status Date / Time No Known Allergies Allergy Verified 03/26/23 17:50 Review of Systems Review of Systems: Yes all other systems are reviewed and are negative [facility] Past Medical History Attestation statement: The following information was validated with the patient. Medical History (Updated 05/06/23 @ 19:15 by Steve Davis MD) Paroxysmal A-fib Cauda equina compression CHF (congestive heart failure) Social History Social History Household Members: Spouse Unable to assess alcohol history related to: Unknown Alcohol intake: former Patient Tobacco Use Status: Never used Tobacco Smoked in Last 30 Days: No Use of substances other than those prescribed or required for medical reasons: No Advance Directives: Yes Advance Directives on File: Yes Advance Directives Date on File: 04/21/23 service: Yes Physical Exam Vital Signs: Vital Signs: Last Vital Signs Temp 97.6 F 05/06/23 15:20 Pulse 82 05/06/23 17:06 Resp 18 05/06/23 17:06 BP 141/72 H 05/06/23 17:06 Pulse Ox 96 05/06/23 17:06 O2 Del Method Room Air 05/06/23 17:06 BMI result Body Mass Index 49.2 Vital signs were normal Exam: General: Awake, alert in no distress, does answer questions appropriately but secondary to difficulty hearing he defers answers to his . Patient has elevated BMI of 49.2 kilograms/meter sq and weighs 142.5 kg Head: Normocephalic, atraumatic EENT: PERRL, Lids normal, sclera normal, conjunctiva normal, nose normal , ears normal, throat without erythema or exudates Neck: Supple, no adenopathy Lung: breath sounds symmetric, no wheezing, rales or rhonchi Chest: symmetric movement, nontender Heart: regular rate and rhythm, normal S1, S2 no murmurs or rubs Abdomen: Obese, soft, non-tender, nondistended, normal bowel sounds Back: no vertebral tenderness, no CVAT Extremities: no deformities Skin: no rashes, no lesion, normal color and warmth Neuro: General: Awake, alert, oriented, normal speech Cranial nerves: Cranial nerves 2-12 are intact Strength: Patient has normal upper extremity strength. Patient is able to minimally lift his left leg up against gravity but can not lift his right leg up against gravity. He can move both legs [id number] on the bag without any difficulty. Sensory: He has normal light touch to both lower extremities, he has no saddle anesthesia, he has sensation to the tip of his penis. Medications Administered Discontinued Medications Generic Name Dose Route Start Last Admin Trade Name Freq PRN Reason Stop Dose Admin Morphine Sulfate 4 mg 05/06/23 17:17 05/06/23 18:03 Morphine Sulfate 4 Mg/Ml Cartridge IVPUSH 05/06/23 17:18 4 mg ONCE ONE Administration Protocol Medical Decision Making Medical Decision Making MDM Narrative: 78-year-old male with a PMH significant for CHF unspecified, HTN, HLD, paroxysmal AFib on Eliquis, cauda equina syndrome (June 2022), chronic lower back pain on chronic opioids, and insulin-dependent diabetes type 2 who presents to the ED evaluation of abnormal MRI done on 04/30/2023 compared to an MRI done on 04/27/2022. Patient was seen by his neurologist Dr. Winchester today for his chronic back pain. Dr. Winchester reviewed the patient's recent MRI felt that the patient may require her to neurosurgical consult for possible surgery therefore the patient's refer the patient to the emergency department. The MRI report most significant finding is as follows: L4-L5: Diffuse disc bulge with superimposed large central extrusion, increased compared to prior, resulting in severe spinal canal stenosis with complete effacement of the thecal sac. Extruded disc material measures approximately 14 x 10 mm. There is mass effect upon the caudal equina nerve root. Mild foraminal stenosis . Patient's exam is consistent with morbid obesity, he has weakness in both lower extremities right greater than left that can move both legs [id number] in the bed without any limitations. He has normal light touch and no saddle anesthesia. Differential diagnosis: ?Includes but is not limited to chronic back pain, chronic cauda equina, L4-L5 urine bladder disc bulging with extrusion of disc material causing mass effect upon the caudal equina nerve roots Course: 16:44 I did discuss the MRI findings with Dr. Winchester. He is concerned that the patient now has disc extrusion which is new compared to the MRI dated 04/27/[address] Winchester's opinion is that this will require surgical management. According to the , the patient was evaluated at [facility] 6-7 months prior by the neurosurgical team and was told that he was not a good surgical candidate. 19:00 I did discuss the patient's presentation with the neurosurgical physician veterinary assistant Юлия at [facility]. She was able to review the record from his admission in June of 2022 and talk to her neurosurgical attending. The patient did have an MRI in June of 2022 which demonstrated similar extrusion of the L4-L5 disc. At that t time, there recommendation was pain avinash gement. She states that the recommendation currently is still pain management and possibly adding a course of dexamethasone to see if there is an inflammatory component to his pain. The neurosurgical physician veterinary assistant states that they can follow the patient up in their neurosurgical clinic in 1-2 weeks and the patient can be evaluated by the neurosurgeon, . I did discuss this with the nurse grocery manager at [facility] and the patient will be discharged back to his care facility. Admission/Observation Consideration of admission/observation: Escalation of care including admission/observation considered Consult Healthcare Provider Management of the patient was discussed with: Ad Copy Writer ([facility] neurosurgical PA) Lab Data MDM Lab Attestation statement: I reviewed the patient's lab results. 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 Winchester who refer you to the emergency department for possible transfer to [facility] to be seen by the neurosurgical service. Your MRI done at [facility] on 04/30/2023 revealed an L4-L5 disc bulge with superimposed large central extrusion which was increased compared to the prior study that they had available from 04/27/2022. The extrusion narrows the spinal canal and completely effaced the thecal sac. I did speak to the physician veterinary assistant covering the neurosurgical service at [facility] and she discuss your findings with the on-call neurosurgeon. According to the physician veterinary assistant, you were seen at [facility] in June of 2022 and on an MRI from that time you also had similar extrusion with similar finding, and at that time they recommended against surgery. The physician veterinary assistant covering the neurosurgical service recommended continued pain management and consideration the use of dexamethasone to reduce inflammation to see if this improves your pain. However she warned that your providers should consider the effects of dexamethasone on your blood glucose determine if there was benefit to start this medication. The physician veterinary assistant for the neurosurgical service stated that they follow y ou up in their neurosurgical clinic at [facility] in 1-2 weeks. Your fdc facility providers should call to make a follow-up appointment with the neurosurgeon . We do have a neurosurgeon here, Dr. Oakes, but he has not on-call to the emergency department. The providers at your fdc facility can contact his office to determine if he would be able to see you as an outpatient consult as well. Continue medications as prescribed by your providers Please return to the emergency department if your symptoms get worse or if you develop any symptoms that are concerning to you. Prescriptions: No Action losartan 50 mg tablet 50 mg PO DAILY atorvastatin 80 mg tablet 80 mg PO DAILY gabapentin 600 mg tablet 600 mg PO BID metoprolol succinate 50 mg tablet extended release 24 hr 25 mg PO DAILY citalopram 20 mg tablet 20 mg PO DAILY omeprazole 20 mg capsule,delayed release(DR/EC) 20 mg PO DAILY nystatin 100,000 unit/gram powder 1 appl topical BID eplerenone 50 mg tablet 50 mg PO DAILY cyclobenzaprine 5 mg tablet 5 mg PO DAILY PRN (Reason: muscle spasm) oxycodone 10 mg tablet 10 mg PO Q6H Eliquis 5 mg tablet 5 mg PO BID Humulin R U-500 (Conc) Kwikpen 500 unit/mL (3 mL) insulin pen 45 unit subcut BID Trelegy Ellipta 100-62.5-25 mcg blister with device 1 ea inhalation DAILY docusate sodium 50 mg Capsule 50 mg PO Q6H PRN (Reason: WITH OXYCODONE) Rx Instructions: With oxycodone cholecalciferol (vitamin D3) 25 mcg (1,000 unit) Tablet 25 mcg PO DAILY lidocaine 4 % Adhesive Patch,Medicated 2 patch TOPICAL DAILY PRN (Reason: Pain, Mild)
[2023-05-06 17:06] VITALS: BP 141/72; PULSE 82; RESP 18; O2SAT 96
[2023-05-06 17:38] LABS: COVID-19 Test Negative (Negative); IDNOW Serial# 08D9AD1C
[2023-05-06] MEDS: Morphine Sulfate 4 MG/ML CARTRIDGE IVPUSH ×2 (18:03→19:32)
[2023-05-06 18:17] LABS: Glucose, Whole Blood 74 mg/dL (60-115)
--- NOTE | 2023-05-06 20:56 | PC.NURSE ---
PT discharged back to SNF via ambulance. Report given. VSS. A & O x 3.
== END 2023-05-06 20:56 ==
PROVIDERS: Emergency Provider Emergency Medicine Emergency Medical Services; PCP Internal Medicine
DX: M51.26 Other intervertebral disc displacement, lumbar region (principal); G89.29 Other chronic pain; M54.9 Dorsalgia, unspecified; I48.0 Paroxysmal atrial fibrillation; E11.9 Type 2 diabetes mellitus without complications; I11.0 Hypertensive heart disease with heart failure; I50.9 Heart failure, unspecified; Z79.01 Long term (current) use of anticoagulants; Z79.4 Long term (current) use of insulin; Z79.891 Long term (current) use of opiate analgesic; Z11.52 Encounter for screening for COVID-19
CPT/HCPCS: 82947; 87635; 96374; 96376; 99284; J2270

== ENCOUNTER 2023-11-07 22:18 | Inpatient (IN) | payer MEDICARE, SELFPAY ==
--- NOTE | ~2023-11-07 | CT_ITS ---
EXAMINATION: CT ABDOMEN AND PELVIS WITHOUT CONTRAST CLINICAL INFORMATION: Pain. COMPARISON: Pelvic CT performed April 20, 2023 TECHNIQUE: Multidetector volumetric imaging was performed from the superior aspect of the liver through the pubic symphysis. Sagittal and coronal reformatted images were obtained on the technologist's workstation. This CT examination was performed using dose optimization techniques as appropriate, variously including the following: *Automated exposure control *Adjustment of mA and/or kV according to patient size (this includes techniques or standardized protocols for targeted exams where dose is matched to indication/reason for exam; i.e. extremities or head) *Use of iterative reconstruction technique DLP: 1650 mGy-cm FINDINGS: LUNG BASES: There is scarring at the left lung base. LIVER, GALLBLADDER, AND BILIARY TREE: The liver is normal in size, shape, and attenuation. There is intrahepatic air and intrahepatic biliary duct dilatation. There is also air within the common bile duct and gallbladder. No definite gallstones are seen. PANCREAS: Pancreas is atrophic. There are scattered pancreatic calcifications. SPLEEN: Unremarkable. ADRENAL GLANDS: Unremarkable. KIDNEYS AND URETERS: The kidneys are normal in size, shape, and attenuation. No hydronephrosis, hydroureter, or calculi seen. No perinephric stranding. BLADDER: There appears to be mild urinary bladder wall thickening and pericystic infiltration. GASTROINTESTINAL TRACT: There is retained stool throughout the colon. There are diverticula of the descending and sigmoid colon without definitive evidence for diverticulitis. ABDOMINAL WALL: There is a small umbilical hernia containing fat. LYMPH NODES: There are small nonspecific retroperitoneal lymph nodes. VASCULAR: Atherosclerotic plaque of the abdominal aorta and proximal branches PELVIC VISCERA: Unremarkable. OSSEOUS STRUCTURES: There is diffuse thoracolumbar degenerative change. CT/CT abdomen pelvis wo IV con IMPRESSION: 1. There is intrahepatic biliary duct dilatation and air within the common bile duct and gallbladder. Correlation is needed for significance. 2. There is also mild urinary bladder wall thickening and pericystic infiltration.Correlation with urinalysis recommended. 3. There is diverticulosis of the descending and sigmoid colon without definitive evidence of diverticulitis. 4. There is retained stool throughout the colon. 5. Atrophic pancreas with scattered pancreatic calcifications. Fleischner guidelines were followed. Electronically signed by: Loyd Mendez MD 11/08/2023 05:58 AM EDT
[2023-11-07 22:20] VITALS: BP 170/90; PULSE 62; O2SAT 92
[2023-11-07 22:36] VITALS: BMI 53.4
[2023-11-07 22:37] LABS: MANUAL DIFF FLAG NO
[2023-11-07 22:40] VITALS: BP 170/74; PULSE 82; RESP 18; TEMP 37; O2SAT 95
[2023-11-07 22:46] LABS: Basophils Absolute Auto 0.1 X10*3/uL (0.0-0.2); Basophils Percent Auto 0.5 % (0-2); Eosinophils Absolute Auto 0.4 X10*3/uL (0.0-0.4); Eosinophils Percent Auto 3.4 % (0-4); Hematocrit 44.1 % (42.0-52.0); Hemoglobin 13.9 g/dl (14.0-18.0); Imm Gran Abs Auto 0.11 X10*3/uL (0.00-0.03); Lymphocytes Absolute Auto 1.3 X10*3/uL (1.2-4.9); Lymphocytes Percent Auto 11.6 % (20-40); Mean Corpuscular HGB Conc 31.5 g/dl (31.0-36.0); Mean Corpuscular Hemoglobin 27.9 pg (27.0-33.0); Mean Corpuscular Volume 88.4 fL (80.0-98.0); Mean Platelet Volume 10.4 fL (9.4-12.4); Monocytes Absolute Auto 0.5 X10*3/uL (0.1-1.2); Monocytes Percent Auto 4.4 % (2-11); Neutrophils Absolute Auto 9.1 x10*3/uL (2.0-8.3); Neutrophils Percent Auto 79.1 % (45-73); Platelet Count 257 X10*3/uL (160-400); Red Blood Count 4.99 X10*6/uL (4.60-5.80); Red Cell Distribution Width 14.8 % (11.0-16.0); White Blood Count 11.5 X10*3/uL (4.8-10.8)
[2023-11-07 22:56] LABS: Alanine Aminotransferase 16 U/L (0-40); Albumin Level 3.6 g/dL (3.5-5.0); Alkaline Phosphatase 163 U/L (39-117); Anion Gap 13 (12-20); Aspartate Amino Transferase 18 U/L (5-37); Bilirubin Direct 0.3 mg/dL (0.0-0.5); Bilirubin Total 0.6 mg/dL (0.0-1.0); Blood Urea Nitrogen 15 mg/dL (9-16); Calcium 9.2 mg/dL (8.4-10.2); Carbon Dioxide 28 mmol/L (22-29); Chloride 101 mmol/L (96-108); Creatinine Clr Calc Pharmacy 74.1; Estimated Glomerular Filt Rate > 60; Glucose Random 269 mg/dL (60-115); Lipase 8 U/L (8-78); Potassium 4.3 mmol/L (3.3-5.1); Sodium 138 mmol/L (135-145); Total Protein 7.6 g/dL (6.5-8.0)
[2023-11-07 23:25] LABS: B Type Natriuretic Peptide 168 pg/mL (<100)
[2023-11-08 00:06] LABS: Appearance Urine Cloudy; Color Urine Dark Yellow; Glucose Urine UA Negative (Negative); Leukocyte Esterase Urine Moderate (2+) (Negative); Nitrite Urine Positive (Negative); PH 6.5 (5.0-9.0); Specific Gravity - Urine 1.015 (1.005-1.025); UMIC TRIGGER UACC YES; Urine Blood Large (3+) (Negative); Urine Ketones Negative (Negative); Urine Protein 30 (1+) mg/dL (Neg-Trace)
[2023-11-08 00:21] LABS: Bacteria Urine 4+ (None Seen); Hyaline Casts Urine 0-2 /LPF (0-2); Squamous Epithelial Cell Urine 0-2 /HPF (0-2); UACC Culture Trigger YES; WBC Urine >50 /HPF (0-5)
--- NOTE | 2023-11-08 00:49 | ED_ITS ---
HPI - Male Genitourinary General Chief complaint: Urogenital-Male Stated complaint: UTI Time Seen by Provider: 11/08/23 00:29 Source: patient Mode of arrival: EMS Limitations: no limitations History of Present Illness ED Provider: candis ROME Narrative: Patient with history of BPH been having increased frequency and dysuria for last few days feeling weak and tired no chills no fever feel dizzy today he noticed slight amount of blood no nausea no vomiting no flank pain patient is diabetic and blood sugar been on higher level Related Data Home Medications ?Medication ?Instructions ?Recorded ?Confirmed apixaban 5 mg tablet (Eliquis) 5 mg PO BID 03/26/23 04/21/23 atorvastatin 80 mg tablet 80 mg PO DAILY 03/26/23 04/21/23 cholecalciferol (vitamin D3) 25 25 mcg PO DAILY 03/26/23 04/21/23 mcg (1,000 unit) tablet citalopram 20 mg tablet 20 mg PO DAILY 03/26/23 04/21/23 cyclobenzaprine 5 mg tablet 5 mg PO DAILY PRN muscle spasm 03/26/23 04/21/23 docusate sodium 50 mg capsule 50 mg PO Q6H PRN WITH OXYCODONE 03/26/23 04/21/23 eplerenone 50 mg tablet 50 mg PO DAILY 03/26/23 04/21/23 fluticasone fur. 100 mcg-umeclid 1 ea inhalation DAILY 03/26/23 04/21/23 62.5 mcg-vilant 25 mcg inhalat.powder (Trelegy Ellipta) gabapentin 600 mg tablet 600 mg PO BID 03/26/23 04/21/23 insulin regular hum U-500 conc 500 45 unit subcut BID 03/26/23 04/21/23 unit/mL(3 mL) subcut pen (Humulin R U-500 (Conc) Insulin Kwikpen) losartan 50 mg tablet 50 mg PO DAILY 03/26/23 04/21/23 metoprolol succinate 50 mg 25 mg PO DAILY 03/26/23 04/21/23 tablet,extended release 24 hr nystatin 100,000 unit/gram topical 1 appl topical BID 03/26/23 04/21/23 powder omeprazole 20 mg capsule,delayed 20 mg PO DAILY 03/26/23 04/21/23 release oxycodone 10 mg tablet 10 mg PO Q6H pain 03/26/23 04/21/23 lidocaine 4 % topical patch 2 patch topical DAILY PRN Pain, 04/21/23 04/21/23 Mild Allergies Allergy/AdvReac Type Severity Reaction Status Date / Time No Known Allergies Allergy Verified 11/07/23 22:40 Review of Systems 2 Review of Systems: Yes all other systems are reviewed and are negative [facility] Past Medical History Medical History Paroxysmal A-fib Cauda equina compression CHF (congestive heart failure) Social History Social History Household Members: Spouse Unable to assess alcohol history related to: Unknown Alcohol intake: former Patient Tobacco Use Status: Never used Tobacco Smoked in Last 30 Days: No Use of substances other than those prescribed or required for medical reasons: No Advance Directives: Yes Advance Directives on File: Yes Advance Directives Date on File: 04/21/23 Do you have a plan to hurt others: No Plan service: Yes Physical Exam 2 Vital Signs: Vital Signs: Last Vital Signs Temp 99.1 F 11/08/23 06:25 Pulse 90 11/08/23 06:25 Resp 23 H 11/08/23 06:25 BP 174/71 H 11/08/23 06:25 Pulse Ox 93 11/08/23 06:25 O2 Del Method Room Air 11/08/23 06:25 BMI result Body Mass Index 53.4 Appearance: Alert. Oriented X3. No acute distress. Eyes: No pallor or icterus ENT: Pharynx normal. Oral Mucosa moist Neck: Normal inspection. Neck supple. CVS: Normal heart rate and rhythm. Pulses normal. Respiratory: No respiratory distress. Equal air entry bilateral, no wheezing/rales/rhonchi Abdomen: Soft and nontender. Bowel sounds are present, no mass palpable, no CVA tenderness Skin: Skin warm and dry. Normal skin color. Normal skin turgor. Extremities: 1+ lower extremity edema. With stasis dermatitis, No calf tenderness Neuro: Oriented X 3. No motor deficit. Medications Administered Discontinued Medications Generic Name Dose Route Start Last Admin Trade Name Freq PRN Reason Stop Dose Admin Ceftriaxone Sodium 1 gm/ 50 mls @ 100 mls/hr 11/08/23 00:50 11/08/23 01:55 Sodium Chloride IV 11/08/23 01:19 Infused ONCE ONE Infusion Medical Decision Making Medical Decision Making [facility] Narrative: Patient has UTI uncomplicated was given Rocephin in the ER normal lactic acid level. CT scan of the abdomen showed pneumobilia etiology not very clear patient did not have any GI procedure no tenderness in the right upper quadrant case discussed with Dr. Wolfe will like to admit the patient for further evaluation including MRCP with contrast will evaluate the patient once admitted Differential Diagnosis Differential Diagnoses: The differential diagnosis associated with the presentation includes Admission/Observation Consideration of admission/observation: Escalation of care including admission/observation considered Consult Healthcare Provider Management of the patient was discussed with: Hospitalist Lab Data [facility] Lab Attestation statement: I reviewed the patient's lab results. 11/07/23 22:34 11/07/23 22:34 Labs: Lab Results 11/07/23 11/07/23 11/08/23 Range/Units 22:34 23:59 01:10 WBC 11.5 H (4.8-10.8) X10*3/uL RBC 4.99 (4.60-5.80) X10*6/uL Hgb 13.9 L (14.0-18.0) g/dl Hct 44.1 (42.0-52.0) % MCV 88.4 (80.0-98.0) fL MCH 27.9 (27.0-33.0) pg MCHC 31.5 (31.0-36.0) g/dl RDW 14.8 (11.0-16.0) % Plt Count 257 (160-400) X10*3/uL MPV 10.4 (9.4-12.4) fL Immature Gran % (Auto) 1.0 H (0.0-0.4) % Neut % (Auto) 79.1 H (45-73) % Lymph % (Auto) 11.6 L (20-40) % [place] % (Auto) 4.4 (2-11) % Eos % (Auto) 3.4 (0-4) % Baso % (Auto) 0.5 (0-2) % Lymph # (Auto) 1.3 (1.2-4.9) X10*3/uL [place] # (Auto) 0.5 (0.1-1.2) X10*3/uL Eos # (Auto) 0.4 (0.0-0.4) X10*3/uL Baso # (Auto) 0.1 (0.0-0.2) X10*3/uL Abs Immat Gran (auto) 0.11 H (0.00-0.03) X10*3/uL Absolute Neuts (auto) 9.1 H (2.0-8.3) x10*3/uL Absolute Nucleated RBC 0.000 (0.0-0.012) X10*3/uL Nucleated RBC % (auto) 0.0 (0.0-0.2) /100WBC Sodium 138 (135-145) mmol/L Potassium 4.3 D (3.3-5.1) mmol/L Chloride 101 (96-108) mmol/L Carbon Dioxide 28 (22-29) mmol/L Anion Gap 13 (12-20) BUN 15 (9-16) mg/dL Creatinine 1.16 (0.5-1.4) mg/dL Estim Creat Clear Calc 74.1 Estimated GFR > 60 Random Glucose 269 H (60-115) mg/dL Lactic Acid 1.3 (0.5-2.0) mmol/L Calcium 9.2 (8.4-10.2) mg/dL Total Bilirubin 0.6 (0.0-1.0) mg/dL Direct Bilirubin 0.3 (0.0-0.5) mg/dL AST 18 (5-37) U/L ALT 16 (0-40) U/L Alkaline Phosphatase 163 H (39-117) U/L B-Natriuretic Peptide 168 H (<100) pg/mL Total Protein 7.6 (6.5-8.0) g/dL Albumin 3.6 (3.5-5.0) g/dL Lipase 8 (8-78) U/L Urine Color Dark Yellow Urine Appearance Cloudy Urine pH 6.5 (5.0-9.0) Ur Specific [place] 1.015 (1.005-1.025) Urine Protein 30 (1+) H (Neg-Trace) mg/dL Urine Glucose (UA) Negative (Negative) mg/dL Urine Ketones Negative (Negative) mg/dL Urine Blood Large (3+) H (Negative) Urine Nitrite Positive H (Negative) Ur Leukocyte Esterase Moderate (2+) H (Negative) Urine RBC 3-5 H (0-2) /HPF Urine WBC >50 H (0-5) /HPF Ur Squamous Epith Cells 0-2 (0-2) /HPF Urine Bacteria 4+ (None Seen) Hyaline Casts 0-2 (0-2) /LPF Independent Interpretation I performed an independent interpretation of an: CT Scan Radiology Impression Discussion of test interpretation with radiology: I have reviewed the radiologist's reading. Radiologist Impression: [address] [address] [address] Scan Report Signed Patient: Sam Meier MR#: [id number] : 1945 Acct:[id number] Age/Sex: 78 / M ADM Date: 11/07/23 Loc: .ED Attending Dr: Ordering Physician: Sekou Underwood MD Date of Service: 11/08/23 Procedure(s): CT abdomen pelvis wo IV con Accession Number(s): [id number] cc: Rufus De Luna MD; Sekou Underwood MD~ EXAMINATION: CT ABDOMEN AND PELVIS WITHOUT CONTRAST CLINICAL INFORMATION: Pain. COMPARISON: Pelvic CT performed April 20, 2023 TECHNIQUE: Multidetector volumetric imaging was performed from the superior aspect of the liver through the pubic symphysis. Sagittal and coronal reformatted images were obtained on the technologist's workstation. This CT examination was performed using dose optimization techniques as appropriate, variously including the following: *Automated exposure control *Adjustment of mA and/or kV according to patient size (this includes techniques or standardized protocols for targeted exams where dose is matched to indication/reason for exam; i.e. extremities or head) *Use of iterative reconstruction technique DLP: 1650 mGy-cm FINDINGS: LUNG BASES: There is scarring at the left lung base. LIVER, GALLBLADDER, AND BILIARY TREE: The liver is normal in size, shape, and attenuation. There is intrahepatic air and intrahepatic biliary duct dilatation. There is also air within the common bile duct and gallbladder. No definite gallstones are seen. PANCREAS: Pancreas is atrophic. There are scattered pancreatic calcifications. SPLEEN: Unremarkable. ADRENAL GLANDS: Unremarkable. KIDNEYS AND URETERS: The kidneys are normal in size, shape, and attenuation. No hydronephrosis, hydroureter, or calculi seen. No perinephric stranding. BLADDER: There appears to be mild urinary bladder wall thickening and pericystic infiltration. GASTROINTESTINAL TRACT: There is retained stool throughout the colon. There are diverticula of the descending and sigmoid colon without definitive evidence for diverticulitis. ABDOMINAL WALL: There is a small umbilical hernia containing fat. LYMPH NODES: There are small nonspecific retroperitoneal lymph nodes. VASCULAR: Atherosclerotic plaque of the abdominal aorta and proximal branches PELVIC VISCERA: Unremarkable. OSSEOUS STRUCTURES: There is diffuse thoracolumbar degenerative change. CT/CT abdomen pelvis wo IV con IMPRESSION: 1. There is intrahepatic biliary duct dilatation and air within the common bile duct and gallbladder. Correlation is needed for significance. 2. There is also mild urinary bladder wall thickening and pericystic infiltration.Correlation with urinalysis recommended. 3. There is diverticulosis of the descending and sigmoid colon without definitive evidence of diverticulitis. 4. There is retained stool throughout the colon. 5. Atrophic pancreas with scattered pancreatic calcifications. Fleischner guidelines were followed. 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
[2023-11-08] MEDS: cefTRIAXone sodium 1 GM in 0.9 % Sodium Chloride 50 ML IV (01:21)
[2023-11-08 01:28] LABS: Lactic Acid 1.3 mmol/L (0.5-2.0)
[2023-11-08 02:50] VITALS: BP 167/69; PULSE 90; RESP 18; O2SAT 94
--- NOTE | 2023-11-08 05:58 | PC.NURSE ---
waiting for CT read however plan is for pt to be consulted to PT/CM for discharge planning - per MD [place] pt does not meet criteria for admission. can take po antibiotics for UTI. however pt too weak to be discharged home at this time as is unable to care for him by herself. Pt is A&Ox3, [facility], #20g iv LFA.
[2023-11-08 06:25] VITALS: BP 174/71; PULSE 90; RESP 23; TEMP 37.3; O2SAT 93
--- NOTE | 2023-11-08 06:26 | MHC.EDTECH ---
450 mL urine emptied via urinal
--- NOTE | 2023-11-08 07:11 | PC.NURSE ---
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
[2023-11-08 09:25] VITALS: BP 150/47; PULSE 80; RESP 26; TEMP 37.3; O2SAT 91
--- NOTE | 2023-11-08 09:58 | PC.NURSE ---
patient endorsing some difficulty urinating, attempted to place condom catheter however difficulty placing r/t anatomy, purewick placed and attached to wall suction with good effect, approximately 300mL of blood tinged urine in cannister. patient offering no other complaints at this time. given update
--- NOTE | 2023-11-08 11:04 | P.HPHOSP_ITS ---
History of Present Illness Date of Service: 11/08/23 Chief Complaint: dysuria, weakness 78M PMH morbid obesity, chronic lymphedema with stasis ulcers, hfpef, hypertension, hyperlipidemia, paroxysmal atrial fibrillation, cauda equina syndrome diagnosed in 06/26/2022 non ambulatory but until recently able to self transfer, chronic low back pain on opiates, diabetes, AGNIESZKA, pneumobilia, presented with increased weakness and malodorous urine for 1-2 days. Denies any fevers, chills, shortness, abdominal pain. Also complaining of chronic lymphedema with nonhealing ulcers. In ED UA grossly abdomen, CT abdomen with known pneumobilia, no evidence of urinary obstruction. Review of Systems 2 Review of Systems: Yes all other systems are reviewed and are negative [facility] Medical History Paroxysmal A-fib Cauda equina compression CHF (congestive heart failure) Social History Household Members: Spouse Unable to assess alcohol history related to: Unknown Alcohol intake: former Patient Tobacco Use Status: Never used Tobacco Smoked in Last 30 Days: No Use of substances other than those prescribed or required for medical reasons: No Advance Directives: Yes Advance Directives on File: Yes Advance Directives Date on File: 04/21/23 Do you have a plan to hurt others: No Plan service: Yes Meds Allergies Allergy/AdvReac Type Severity Reaction Status Date / Time No Known Allergies Allergy Verified 11/07/23 22:40 Active Medications: Current Medications Acetaminophen (Acetaminophen 325 Mg Tablet) 650 mg PO Q6H PRN PRN Reason: Pain, Mild (Pain Scale 1-3), fever or headache Calcium Carbonate (Calcium Carbonate 750 Mg Tab.Chew) 750 mg PO Q4H PRN PRN Reason: Heartburn Glucose (Glucose Gel 15 Gm Gel..Gram.) 15 gm PO Q15M PRN; Protocol PRN Reason: per Hypoglycemia Standing Ord. Ceftriaxone Sodium 1 gm/ (Sodium Chloride) 50 mls @ 100 mls/hr IV Q24H JOSEFA Dextrose (D10) 250 mls @ 750 mls/hr IV Q15M PRN; Protocol PRN Reason: per Hypoglycemia Standing Ord. Insulin Human Lispro (Insulin Lispro 100 Unit/Ml 3 Ml Vial) 0 unit SUBCUT QIDACHS [facility]; Protocol Magnesium Hydroxide (Milk Of Magnesia 30 Ml Oral.Susp) 30 ml PO DAILY PRN PRN Reason: Constipation Melatonin (Melatonin 3 Mg Tablet) 6 mg PO BEDTIME PRN PRN Reason: Insomnia Sodium Chloride (0.9 % Sodium Chloride Flush 3 Ml Syringe) [facility] Medications ?Medication ?Instructions ?Recorded ?Confirmed ?Last Taken ?Type apixaban 5 mg tablet (Eliquis) 5 mg PO BID 03/26/23 04/21/23 03/26/23 History atorvastatin 80 mg tablet 80 mg PO DAILY 03/26/23 04/21/23 03/26/23 History cholecalciferol (vitamin D3) 25 25 mcg PO DAILY 03/26/23 04/21/23 03/26/22 History mcg (1,000 unit) tablet citalopram 20 mg tablet 20 mg PO DAILY 03/26/23 04/21/23 03/26/23 History cyclobenzaprine 5 mg tablet 5 mg PO DAILY PRN muscle spasm 03/26/23 04/21/23 Unknown History docusate sodium 50 mg capsule 50 mg PO Q6H PRN WITH OXYCODONE 03/26/23 04/21/23 Unknown History eplerenone 50 mg tablet 50 mg PO DAILY 03/26/23 04/21/23 03/26/23 History fluticasone fur. 100 mcg-umeclid 1 ea inhalation DAILY 03/26/23 04/21/23 03/26/23 History 62.5 mcg-vilant 25 mcg inhalat.powder (Trelegy Ellipta) gabapentin 600 mg tablet 600 mg PO BID 03/26/23 04/21/23 03/26/23 History insulin regular hum U-500 conc 500 45 unit subcut BID 03/26/23 04/21/23 03/26/23 History unit/mL(3 mL) subcut pen (Humulin R U-500 (Conc) Insulin Kwikpen) losartan 50 mg tablet 50 mg PO DAILY 03/26/23 04/21/23 03/26/23 History metoprolol succinate 50 mg 25 mg PO DAILY 03/26/23 04/21/23 03/26/23 History tablet,extended release 24 hr nystatin 100,000 unit/gram topical 1 appl topical BID 03/26/23 04/21/23 03/26/23 History powder omeprazole 20 mg capsule,delayed 20 mg PO DAILY 03/26/23 04/21/23 03/26/23 History release oxycodone 10 mg tablet 10 mg PO Q6H pain 03/26/23 04/21/23 03/26/23 History lidocaine 4 % topical patch 2 patch topical DAILY PRN Pain, 04/21/23 04/21/23 Unknown History Mild Physical Exam 2 Vital Signs and Narrative: Vital Signs: Last Vital Signs Temp 99.1 F 11/08/23 09:25 Pulse 80 11/08/23 09:25 Resp 26 H 11/08/23 09:25 BP 150/47 H 11/08/23 09:25 Pulse Ox 91 L 11/08/23 09:25 O2 Del Method Room Air 11/08/23 09:25 BMI result Body Mass Index 53.4 General: AO X 3, no acute distress, frail appearing, hard of hearing Resp: diminished bilateral, no accessory muscles used CVS: S1,S2,RRR, 3 + edema with ulcers, no cellulitis GI: soft, non tender, non distended Neuro: motor grossly weak, alert Psych: appropriate affect, appropriate insight Results Labs 11/07/23 22:34 11/07/23 22:34 Labs: Laboratory Results - last 24 hr 11/07/23 11/07/23 11/08/23 22:34 23:59 01:10 MCV 88.4 MCH 27.9 MCHC 31.5 RDW 14.8 Plt Count 257 MPV 10.4 Immature Gran % (Auto) 1.0 H Neut % (Auto) 79.1 H Lymph % (Auto) 11.6 L [place] % (Auto) 4.4 Eos % (Auto) 3.4 Baso % (Auto) 0.5 Lymph # (Auto) 1.3 [place] # (Auto) 0.5 Eos # (Auto) 0.4 Baso # (Auto) 0.1 Abs Immat Gran (auto) 0.11 H Absolute Neuts (auto) 9.1 H Absolute Nucleated RBC 0.000 Nucleated RBC % (auto) 0.0 Anion Gap 13 Estim Creat Clear Calc 74.1 Estimated GFR > 60 Random Glucose 269 H Lactic Acid 1.3 Calcium 9.2 Total Bilirubin 0.6 Direct Bilirubin 0.3 AST 18 ALT 16 Alkaline Phosphatase 163 H B-Natriuretic Peptide 168 H Total Protein 7.6 Albumin 3.6 Lipase 8 Urine Color Dark Yellow Urine Appearance Cloudy Urine pH 6.5 Ur Specific [place] 1.015 Urine Protein 30 (1+) H Urine Glucose (UA) Negative Urine Ketones Negative Urine Blood Large (3+) H Urine Nitrite Positive H Ur Leukocyte Esterase Moderate (2+) H Urine RBC 3-5 H Urine WBC >50 H Ur Squamous Epith Cells 0-2 Urine Bacteria 4+ Hyaline Casts 0-2 Imaging Radiologist's Impressions: Impressions Abdomen/Pelvis CT 11/08/23 01:31 IMPRESSION: 1. There is intrahepatic biliary duct dilatation and air within the common bile duct and gallbladder. Correlation is needed for significance. 2. There is also mild urinary bladder wall thickening and pericystic infiltration.Correlation with urinalysis recommended. 3. There is diverticulosis of the descending and sigmoid colon without definitive evidence of diverticulitis. 4. There is retained stool throughout the colon. 5. Atrophic pancreas with scattered pancreatic calcifications. Fleischner guidelines were followed. Electronically signed by: Loyd Mendez MD 11/08/2023 05:58 AM EDT RP Assessment and Plan (1) Pneumobilia: Status: Acute Plan 78M PMH morbid obesity, chronic lymphedema with stasis ulcers, hypertension, hyperlipidemia, paroxysmal atrial fibrillation, cauda equina syndrome diagnosed in 06/26/2022 non ambulatory but until recently able to self transfer, chronic low back pain on opiates, diabetes, AGNIESZKA, pneumobilia, presented with increased weakness and malodorous urine sepsis on arrival (tachypnea, tachycardia) due to uti rocpehin, follow up cultures chronic pneumobilia asymptomatic, old imaging reviewed with GI, likley sphincter of david dysfunction, no need for further work up morbid obesity with chronic lymphedema and stasis ulcers wound care eval pafib toprol, eliquis history of cauda equina not interested in PT DM inuslin AGNIESZKA cpap at night dvt prophylaxis - eliquis dnr/dni paitent with uti, at risk for further decopmensation due to dm, obesity, therefore expected to require atleast 2 midnights inpatient Quality Stroke Does the patient have a stroke diagnosis?: No VTE Prior VTE?: No VTE Risk Level:: Medical - moderate - high VTE Device Contraindication: Treatment Not Indicated VTE Drug Contraindication: N/A - Med Ordered
[2023-11-08 11:18] VITALS: BP 151/87; PULSE 88; RESP 18; TEMP 38.1; O2SAT 93
[2023-11-08] MEDS: Acetaminophen 325 MG TABLET 650 MG PO (11:21)
--- NOTE | 2023-11-08 11:32 | PHA.MEDREC ---
Addendum entered by Kusum Morris RPh 11/08/23 12:24: Med rec was reviewed by [facility]. Original Note: Pharmacy Consult ? Medication Reconciliation Pharmacy has completed the medication reconciliation. Spoke with patients Irais to confirm medications. She gives him docusate with every dose of oxycodone. She confirmed Humulin R 50 units in the morning and 45 units with dinner. She confirmed she gives him a 1/2 tablet of losartan and metoprolol once daily. Last citrus picker at [facility] for losartan 50 mg was 07/15/22 for #180 once daily. She reports she still gives him a 1/2 tab of the losartan daily. She confirmed he still uses Trelegy daily. He was prescribed finasteride on however he was experiencing a lot of pain after his first dose so she stopped giving it to him and does not want him taking it. She reports his hydroxyzine is prn for itching but cannot take it up to TID because he gets really drowsy. He no longer uses cyclobenzaprine. Patient and report he took all of his medications yesterday.
[2023-11-08] MEDS: oxyCODONE HCl Immed Release 5 MG TABLET 10 MG PO ×3 (12:27→23:24)
[2023-11-08 14:10] LABS: Glucose, Whole Blood 160 mg/dL (60-115)
[2023-11-08] MEDS: hydrOXYzine HCL 25 MG TABLET PO (15:16)
[2023-11-08] MEDS: Gabapentin 600 MG TABLET PO ×2 (15:16→20:46)
[2023-11-08] MEDS: 0.9 % Sodium Chloride Flush 3 ML SYRINGE IVFLUSH ×2 (15:16→20:49)
[2023-11-08 15:24] VITALS: BMI 52.7
--- NOTE | 2023-11-08 15:25 | PC.RT ---
Pt ordered for AGNIESZKA CPAP, RESMED mx offered to pt. Pt stated he does not use CPAP at home and will not use while in the hosp, RN aware.
[2023-11-08 16:00] VITALS: BP 144/98; PULSE 100; RESP 16; TEMP 36.8; O2SAT 95
[2023-11-08 16:34] LABS: Glucose, Whole Blood 292 mg/dL (60-115)
[2023-11-08] MEDS: Insulin Lispro 100 UNIT/ML 3 ML VIAL SUBCUT ×2 (16:34→20:47)
[2023-11-08 20:16] LABS: Glucose, Whole Blood 212 mg/dL (60-115)
[2023-11-08] MEDS: Tamsulosin HCL 0.4 MG CAPSULE PO (20:46)
[2023-11-08] MEDS: Apixaban 5 MG TABLET PO (20:46)
[2023-11-08 23:24] VITALS: BP 170/91; PULSE 97; RESP 19; TEMP 36.5; O2SAT 95
[2023-11-09] MEDS: cefTRIAXone sodium 1 GM in 0.9 % Sodium Chloride 50 ML IV (01:18)
[2023-11-09] MEDS: oxyCODONE HCl Immed Release 5 MG TABLET 10 MG PO ×4 (06:04→22:43)
[2023-11-09] MEDS: Omeprazole 20 MG CAPSULE.DR PO (06:05)
[2023-11-09 06:29] LABS: Hemoglobin 13.4 g/dl (14.0-18.0); Mean Corpuscular HGB Conc 31.9 g/dl (31.0-36.0); Mean Corpuscular Volume 87.7 fL (80.0-98.0); Mean Platelet Volume 10.3 fL (9.4-12.4); Platelet Count 234 X10*3/uL (160-400); Red Blood Count 4.79 X10*6/uL (4.60-5.80); Red Cell Distribution Width 14.8 % (11.0-16.0); White Blood Count 9.9 X10*3/uL (4.8-10.8)
[2023-11-09 06:38] LABS: Alanine Aminotransferase 14 U/L (0-40); Albumin Level 3.1 g/dL (3.5-5.0); Alkaline Phosphatase 122 U/L (39-117); Anion Gap 13 (12-20); Aspartate Amino Transferase 15 U/L (5-37); Bilirubin Direct 0.5 mg/dL (0.0-0.5); Blood Urea Nitrogen 13 mg/dL (9-16); Calcium 9.1 mg/dL (8.4-10.2); Carbon Dioxide 27 mmol/L (22-29); Chloride 102 mmol/L (96-108); Creatinine Clr Calc Pharmacy 95.8; Estimated Glomerular Filt Rate > 60; Glucose Fasting 212 mg/dL (60-99); Magnesium 1.9 mg/dL (1.6-2.6); Potassium 4.2 mmol/L (3.3-5.1); Sodium 138 mmol/L (135-145); Total Protein 6.6 g/dL (6.5-8.0)
[2023-11-09 07:20] VITALS: BP 149/83; PULSE 108; RESP 18; TEMP 36.6; O2SAT 93
[2023-11-09 07:21] LABS: Glucose, Whole Blood 205 mg/dL (60-115)
[2023-11-09] MEDS: Escitalopram Oxalate 10 MG TABLET PO (07:45)
[2023-11-09] MEDS: Metoprolol Succinate ER 25 MG TAB.ER.24H PO (07:45)
[2023-11-09] MEDS: Insulin Lispro 100 UNIT/ML 3 ML VIAL SUBCUT ×4 (07:45→20:52)
[2023-11-09] MEDS: Atorvastatin Calcium 80 MG TABLET PO (07:45)
[2023-11-09] MEDS: Cholecalciferol (Vitamin D3) 25 MCG TABLET PO (07:45)
[2023-11-09] MEDS: Gabapentin 600 MG TABLET PO ×3 (07:45→20:52)
[2023-11-09] MEDS: Losartan Potassium 25 MG TABLET PO (07:45)
[2023-11-09] MEDS: polyethylene glycoL 3350 17 GM POWD.PACK PO (07:45)
[2023-11-09] MEDS: Apixaban 5 MG TABLET PO ×2 (07:45→20:52)
[2023-11-09] MEDS: 0.9 % Sodium Chloride Flush 3 ML SYRINGE IVFLUSH ×2 (07:47→14:10)
--- NOTE | 2023-11-09 09:43 | P.PNIM_ITS ---
Subjective Subjective Date of Service: 11/09/23 Interval History: weakness improved Review of Systems Denies chest pain Denies shortness of breath Denies nausea vomiting diarrhea Denies fever chills Physical Exam 2 Vital Signs: Vital Signs: Last Vital Signs Temp 97.9 F 11/09/23 07:20 Pulse 108 H 11/09/23 07:20 Resp 18 11/09/23 07:20 BP 149/83 H 11/09/23 07:20 Pulse Ox 93 11/09/23 07:20 O2 Del Method Room Air 11/09/23 07:20 BMI result Body Mass Index 52.7 General: AO X 3, no acute distress Resp: CTA bilateral, no accessory muscles used CVS: S1,S2,RRR, 3+ bilateral edema with ulcers GI: soft, non tender, non distended Neuro: motor grossly weak, alert Psych: appropriate affect, appropriate insight Objective Data Active Medications Acetaminophen (Acetaminophen 325 Mg Tablet) 650 mg PO Q6H PRN PRN Reason: Pain, Mild (Pain Scale 1-3), fever or headache Last Admin: 11/08/23 11:21 Dose: 650 mg Documented By: IVY Albuterol Sulfate (Albuterol Sulfate 90 Mcg 8 Gm Inhaler) 2 puff INHALE Q4H PRN PRN Reason: Shortness Of Breath Or Wheezing Apixaban (Apixaban 5 Mg Tablet) 5 mg PO BID [facility] Last Admin: 11/09/23 07:45 Dose: 5 mg Documented By: MANNY Atorvastatin Calcium (Atorvastatin Calcium 80 Mg Tablet) 80 mg PO DAILY [facility] Last Admin: 11/09/23 07:45 Dose: 80 mg Documented By: MANNY Calcium Carbonate (Calcium Carbonate 750 Mg Tab.Chew) 750 mg PO Q4H PRN PRN Reason: Heartburn Escitalopram Oxalate (Escitalopram Oxalate 10 Mg Tablet) 10 mg PO DAILY [facility] Last Admin: 11/09/23 07:45 Dose: 10 mg Documented By: MANNY Fluticasone/Umeclidinium/Vilanterol (Fluticasone/Umeclidinium/Vilanterol 100/62.5/25 Blst.W.Dev) 1 puff INHALE RDAILY [facility] Last Admin: 11/09/23 07:41 Dose: Not Given Documented By: NARGIS Non-Admin Reason: Med not on unit pharm contacted Gabapentin (Gabapentin 600 Mg Tablet) 600 mg PO TID [facility] Last Admin: 11/09/23 07:45 Dose: 600 mg Documented By: MANNY Glucose (Glucose Gel 15 Gm Gel..Gram.) 15 gm PO Q15M PRN; Protocol PRN Reason: per Hypoglycemia Standing Ord. Hydroxyzine HCl (Hydroxyzine Hcl 25 Mg Tablet) 25 mg PO BID PRN PRN Reason: itch Last Admin: 11/08/23 15:16 Dose: 25 mg Documented By: MAURILIO Ceftriaxone Sodium 1 gm/ (Sodium Chloride) 50 mls @ 100 mls/hr IV Q24H [facility] Last Infusion: 11/09/23 01:49 Dose: Infused Documented By: DARYL Dextrose (D10) 250 mls @ 750 mls/hr IV Q15M PRN; Protocol PRN Reason: per Hypoglycemia Standing Ord. Insulin Human Lispro (Insulin Lispro 100 Unit/Ml 3 Ml Vial) 0 unit SUBCUT QIDACHS [facility]; Protocol Last Admin: 11/09/23 07:45 Dose: 4 unit Documented By: MANNY Losartan Potassium (Losartan Potassium 25 Mg Tablet) 25 mg PO DAILY [facility]; Protocol Last Admin: 11/09/23 07:45 Dose: 25 mg Documented By: MANNY Magnesium Hydroxide (Milk Of Magnesia 30 Ml Oral.Susp) 30 ml PO DAILY PRN PRN Reason: Constipation Melatonin (Melatonin 3 Mg Tablet) 6 mg PO BEDTIME PRN PRN Reason: Insomnia Metoprolol Succinate (Metoprolol Succinate Er 25 Mg Tab.Er.24h) 25 mg PO DAILY [facility]; Protocol Last Admin: 11/09/23 07:45 Dose: 25 mg Documented By: MANNY Non-Formulary Medication (Vibegron [Gemtesa]) 75 mg PO DAILY [facility] Non-Formulary Medication (Eplerenone) 50 mg PO DAILY [facility] Nystatin (Nystatin Powder 15 Gm Bottle) 1 appl TOPICAL BID PRN; Protocol PRN Reason: abdominal rash Omeprazole (Omeprazole 20 Mg Capsule.Dr) 20 mg PO DAILY@0630 [facility] Last Admin: 11/09/23 06:05 Dose: 20 mg Documented By: DARYL Oxycodone HCl (Oxycodone Hcl Immed Release 5 Mg Tablet) 10 mg PO Q6H [facility] Last Admin: 11/09/23 06:04 Dose: 10 mg Documented By: DARYL Polyethylene Glycol (Polyethylene Glycol 3350 17 Gm Powd.Pack) 17 gm PO DAILY [facility] Last Admin: 11/09/23 07:45 Dose: 17 gm Documented By: MANNY Sodium Chloride (0.9 % Sodium Chloride Flush 3 Ml Syringe) 3 ml IVFLUSH QSHIFT [facility] Last Admin: 11/09/23 07:47 Dose: 3 ml Documented By: MANNY Tamsulosin HCl (Tamsulosin Hcl 0.4 Mg Capsule) 0.4 mg PO BEDTIME [facility] Last Admin: 11/08/23 20:46 Dose: 0.4 mg Documented By: DARYL Vitamin D (Cholecalciferol (Vitamin D3) 25 Mcg Tablet) 25 mcg PO DAILY [facility] Last Admin: 11/09/23 07:45 Dose: 25 mcg Documented By: MANNY Labs 11/09/23 06:04 11/09/23 06:03 Labs: Laboratory Results - last 24 hr 11/08/23 11/08/23 11/08/23 13:16 16:29 20:12 MCV MCH MCHC RDW Plt Count MPV Absolute Nucleated RBC Nucleated RBC % (auto) Anion Gap Estim Creat Clear Calc Estimated GFR POC Glucose 160 H 292 H 212 H Fasting Glucose Calcium Magnesium Total Bilirubin Direct Bilirubin AST ALT Alkaline Phosphatase Total Protein Albumin 11/09/23 11/09/23 11/09/23 06:03 06:04 07:19 MCV 87.7 MCH 28.0 MCHC 31.9 RDW 14.8 Plt Count 234 MPV 10.3 Absolute Nucleated RBC 0.000 Nucleated RBC % (auto) 0.0 Anion Gap 13 Estim Creat Clear Calc 95.8 Estimated GFR > 60 POC Glucose 205 H Fasting Glucose 212 H Calcium 9.1 Magnesium 1.9 Total Bilirubin 1.0 Direct Bilirubin 0.5 AST 15 ALT 14 Alkaline Phosphatase 122 H Total Protein 6.6 Albumin 3.1 L Microbiology Microbiology Results: Microbiology 11/08/23 01:10 Blood Culture - Preliminary Blood - Venous No growth after 24 hours. 11/08/23 01:13 Blood Culture - Preliminary Blood - Venous No growth after 24 hours. Assessment and Plan (1) Urinary tract infection: Status: Acute Plan 78M PMH morbid obesity, chronic lymphedema with stasis ulcers, hypertension, hyperlipidemia, paroxysmal atrial fibrillation, cauda equina syndrome diagnosed in 06/26/2022 non ambulatory but until recently able to self transfer, chronic low back pain on opiates, diabetes, AGNIESZKA, pneumobilia, presented with increased weakness and malodorous urine sepsis on arrival (tachypnea, tachycardia) due to uti Rocephin, follow up cultures improving chronic pneumobilia asymptomatic, old imaging reviewed with GIrenettaley sphincter of david dysfunction, no need for further work up morbid obesity with chronic lymphedema and stasis ulcers wound care eval pafib topkemi morton history of cauda equina not interested in PT DM insulin AGNIESZKA cpap at night dvt prophylaxis - eliquis dnr/dni reason for continued hospitalization: awaiting cultures Quality Stroke Does the patient have a stroke diagnosis?: No VTE Prior VTE?: No VTE Risk Level:: Medical - moderate - high VTE Device Contraindication: Treatment Not Indicated VTE Drug Contraindication: N/A - Med Ordered
[2023-11-09 11:17] LABS: Glucose, Whole Blood 257 mg/dL (60-115)
[2023-11-09 15:14] VITALS: BP 127/56; PULSE 79; RESP 16; TEMP 36.9; O2SAT 92
[2023-11-09 18:50] LABS: Glucose, Whole Blood 259 mg/dL (60-115)
[2023-11-09 20:14] LABS: Glucose, Whole Blood 336 mg/dL (60-115)
[2023-11-09] MEDS: Tamsulosin HCL 0.4 MG CAPSULE PO (20:52)
[2023-11-09] MEDS: Fluticasone/Umeclidinium/Vilanterol 100/62.5/25 BLST.W.DEV 1 PUFF INHALE (21:02)
--- NOTE | 2023-11-09 21:58 | PC.RT ---
CPAP still refused
[2023-11-09 23:00] VITALS: BP 176/78; PULSE 69; RESP 17; TEMP 36.1; O2SAT 97
[2023-11-10] MEDS: 0.9 % Sodium Chloride Flush 3 ML SYRINGE IVFLUSH ×2 (01:03→08:02)
[2023-11-10] MEDS: cefTRIAXone sodium 1 GM in 0.9 % Sodium Chloride 50 ML IV (01:03)
[2023-11-10] MEDS: Omeprazole 20 MG CAPSULE.DR PO (05:58)
[2023-11-10] MEDS: oxyCODONE HCl Immed Release 5 MG TABLET 10 MG PO ×2 (05:58→10:33)
[2023-11-10 07:15] LABS: Glucose, Whole Blood 293 mg/dL (60-115)
[2023-11-10 07:27] VITALS: BP 141/62; PULSE 108; RESP 18; TEMP 36.5; O2SAT 92
[2023-11-10] MEDS: Insulin Lispro 100 UNIT/ML 3 ML VIAL SUBCUT ×2 (08:02→11:42)
[2023-11-10] MEDS: Losartan Potassium 25 MG TABLET PO (08:02)
[2023-11-10] MEDS: Gabapentin 600 MG TABLET PO (08:02)
[2023-11-10] MEDS: polyethylene glycoL 3350 17 GM POWD.PACK PO (08:02)
[2023-11-10] MEDS: Apixaban 5 MG TABLET PO (08:02)
[2023-11-10] MEDS: Cholecalciferol (Vitamin D3) 25 MCG TABLET PO (08:02)
[2023-11-10] MEDS: Metoprolol Succinate ER 25 MG TAB.ER.24H PO (08:02)
[2023-11-10] MEDS: Escitalopram Oxalate 10 MG TABLET PO (08:02)
[2023-11-10] MEDS: Atorvastatin Calcium 80 MG TABLET PO (08:02)
[2023-11-10] MEDS: hydrOXYzine HCL 25 MG TABLET PO (10:35)
--- NOTE | 2023-11-10 10:42 | PM.DS ---
DS: Providers Provider Date of Service: 11/10/23 Date of admission: 11/08/23 11:02 Date of discharge: 11/10/23 Primary care physician: Rufus De Luna MD Consults: 11/08/23 11:00 Consult to Wound Care Routine Reason for consultation: lymphedema with wounds DS: Diagnosis Discharge Diagnosis (1) Urinary tract infection: Status: Acute DS: Summary Hospital Course Hospital Course: from initial hpi: 78M PMH morbid obesity, chronic lymphedema with stasis ulcers, hfpef, hypertension, hyperlipidemia, paroxysmal atrial fibrillation, cauda equina syndrome diagnosed in 06/26/2022 non ambulatory but until recently able to self transfer, chronic low back pain on opiates, diabetes, AGNIESZKA, pneumobilia, presented with increased weakness and malodorous urine for 1-2 days. Denies any fevers, chills, shortness, abdominal pain. Also complaining of chronic lymphedema with nonhealing ulcers. In ED UA grossly abdomen, CT abdomen with known pneumobilia, no evidence of urinary obstruction. hospital course: Patient was admitted for sepsis due to urinary tract infection. He was treated with IV ceftriaxone and urine culture grew Proteus mirabilis that was sensitive, patient will be discharged on 3 more days of cefuroxime. Sepsis resolved. 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 For morbid obesity with chronic lymphedema and stasis ulcer was seen by wound care and will continue to follow up outpatient. For paroxysmal atrial fibrillation was continued on Toprol and Eliquis. For history of cauda equina syndrome patient family not interested in physical therapy at this time. For diabetes was continue insulin, for AGNIESZKA uses CPAP at night. Patient is back to baseline will be discharged home. Time Attestation Discharge Coordination Time (in mins): 35 Quality: Safe Use of Opioids Does Pt have an Active Cancer Diagnosis on the Problem List?: No Quality: Stroke Does the patient have a stroke diagnosis?: No Physical Exam Vital Signs: Vital Signs: Last Vital Signs Temp 97.7 F 11/10/23 07:27 Pulse 108 H 11/10/23 07:27 Resp 18 11/10/23 07:27 BP 141/62 H 11/10/23 07:27 Pulse Ox 92 11/10/23 07:27 O2 Del Method Room Air 11/10/23 07:27 BMI result Body Mass Index 52.7 General: AO X 3, no acute distress Resp: CTA bilateral, no accessory muscles used CVS: S1,S2,RRR, 3+ bilateral edema with ulcers GI: soft, non tender, non distended Neuro: motor grossly weak, alert Psych: appropriate affect, appropriate insight DS: Data Data Completed and Pending Labs on day of discharge: Laboratory Results - last 24 hr 11/09/23 11/09/23 11/09/23 11:07 16:30 20:10 POC Glucose 257 H 259 H 336 H 11/10/23 07:11 POC Glucose 293 H Preliminary micro results at discharge 11/08/23 01:10 Blood Culture - Preliminary Blood - Venous No growth after 48 hours. 11/08/23 01:13 Blood Culture - Preliminary Blood - Venous No growth after 48 hours. Discharge Plan Discharge Anticipated Discharge Date/Time: 11/10/23 10:40 Patient Disposition: Home Health Service Discharge Diagnosis: uti Referrals: Cash [Outside] - 1 Week Rufus De Luna MD [Primary Care Provider] - 1 Week Discharge Medications: New cefuroxime axetil 500 mg tablet 500 mg PO Q12H Qty: 6 0RF Continued losartan 50 mg tablet 25 mg PO DAILY atorvastatin 80 mg tablet 80 mg PO DAILY gabapentin 600 mg tablet 600 mg PO TID metoprolol succinate 50 mg tablet extended release 24 hr 25 mg PO DAILY citalopram 20 mg tablet 20 mg PO DAILY omeprazole 20 mg capsule,delayed release(DR/EC) 20 mg PO DAILY nystatin 100,000 unit/gram powder 1 appl topical BID PRN (Reason: abdominal rash) eplerenone 50 mg tablet 50 mg PO DAILY oxycodone 10 mg tablet 10 mg PO Q6H Eliquis 5 mg tablet 5 mg PO BID Humulin R U-500 (Conc) Kwikpen 500 unit/mL (3 mL) insulin pen 45 unit subcut DAILY@1730 Trelegy Ellipta 100-62.5-25 mcg blister with device 1 ea inhalation DAILY docusate sodium 50 mg Capsule 50 mg PO Q6H Rx Instructions: With oxycodone cholecalciferol (vitamin D3) 25 mcg (1,000 unit) Tablet 25 mcg PO DAILY tamsulosin 0.4 mg capsule 0.4 mg PO BEDTIME polyethylene glycol 3350 [Miralax] 17 gram/dose Powder 17 g PO DAILY hydroxyzine pamoate 25 mg capsule 25 mg PO BID PRN (Reason: itch) albuterol sulfate 90 mcg/actuation Aerosol Powdr Breath Activated 2 inh INHALATION Q4-6H PRN (Reason: Shortness Of Breath Or Wheezing) Humulin R U-500 (Conc) Kwikpen 500 unit/mL (3 mL) insulin pen 50 unit subcut DAILY@0900 Gemtesa 75 mg tablet 75 mg PO DAILY Discharge Orders: Discharge Order (Routine); Ordered 11/10/23 Ordered By: Phill Oscar Diet: Advance to usual diet Activity on Discharge: As tolerated Stand Alone Forms: Patient Portal Discharge page Print Language: [place] Citizen Care Plan Goals: recovery Health Concerns: uti, chronic wounds Plan of Treatment: 3 more days ceftin, follow up with wound care Assessment: see above
[2023-11-10 11:14] LABS: Glucose, Whole Blood 306 mg/dL (60-115)
--- NOTE | 2023-11-10 11:22 | MHC.CM.PN ---
PATIENT LIVES WITH HIS . THERE ARE NO SERVICES IN THE HOME PATIENT STATES THAT HE DOES NOT WANT ANY VNA SERVICES, BUT THAT HE IS ACTIVE WITH [facility]. REFERRAL PLACED TO [facility] TO FOLLOW. PATIENT AND STATES THAT HE CANT REALLY GET TO HIS DOCTORS' REPORTEDLY, THE ELECTRIC WHEEL CHAIR DOES NOT ALLOW HIM TO NAVIGATE THROUGH THIS PROCESS . PATIENT AND REMINDED TO VISIT THE PCP FOR AN INCREASE IN ANY RECOMMENDATIONS FOR AN INCREASE IN SERVICES. PATIENT STATES THAT HE REQUIRES AMBULANCE HOME AND IS UNABLE TO AMBULATE ALTHOUGH THERE IS A WALKER IN THE ROOM. PATIENT THEN STATES THAT HE USES A WALKER ONLY TO GO TO AND FROM BATHROOM. 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 IMM 11/08 IN CHART
--- NOTE | 2023-11-10 11:50 | MHC.CM.PN ---
PATIENT IS DC HOME TODAY WITH RESUMPTION OF [facility]. AND PATIENT AWARE. [facility] ARRANGED FOR 3 PM FROM HERE. UNIT AND RN AWARE OF PLAN.
--- NOTE | 2023-11-10 13:40 | W.MHC.F2F ---
Service Date Service Date: 11/10/23 Encounter Date of encounter: 11/10/23 Reasons for Services Signs and symptoms assessed: difficulty ambulating, wounds Reason for long-term: wound care, medication management, medication treatment and teach disease management Homebound: Leaving the home is medically contraindicated at this time without the asist of a device and/or another person due th the listed conditions above and below. Reason homebound: leg weakness and unable to drive Certification: Based on the above findings, I certify that this patient is confined to the home and needs intermittent long-term care, physical therapy and/or speech therapy, or continues to need occupational therapy. The patient is under my care, and I have initiated the establishment of the plan of care. The patient will be followed by a physician who will periodically review the plan of care. Time Spent With Patient Time: Total time managing care of this patient today ____ minutes.
--- NOTE | 2023-11-10 14:29 | HO.WOUND ---
Wound Consult: Initial 78yr old Male? admitted to [facility] on 11/08/23 - See progress notes and H&P for detailed history.? Wound consult placed for Bilateral Lower Leg wound.? Patient agreeable to assessment and photo documentation.? Spoke to patients - there seems to be poor follow up outpatient carlin since patient has difficulty getting to and from appointments. Advised patient to speek to social workers assigned from [facility] to help safe coordination, additionally spoke wo case mgt inpatient to investigate and assist with outpatient care needed. The patient is a proo historian however they was able to provide much information. She reports she was adviused to wear compression and advised outpt follow up and topical treatments. She reports they did not follow up with many of the recommended treatments due to the treatements not working . Attempted to provide Lymphedema treatment education - however patients reported she felt that wasnt the cause of his leg swelling nor chronic wound development. Recommend [facility]hedema clinic / Dr. Booker follow up for pump evaluation and consider Dermatology outpt follow up for etiology diagnosis. She reports under standing. 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 irregular Lisset wound: ? redness, mild warmth noted and evidence of significant previous swelling - No Induration, Fluctuance noted Pain: patient reports pain with elevation Goals of Treatment: ? Elevate lower legs - outpt follow up and xeroform for moist wound healing Recommendations: 1. Turn and Reposition every 2 hours and as needed for patient comfort.? Use pillows or wedges to support off loading positions. 2. Off Load all bony prominences with use of pillows and heel boots if needed.? Apply Preventative foams where needed. ? 3. Monitor for incontinence and moisture control, use barrier creams when needed for prevention and treatment. 4. Provide adequate and supplemental nutrition.? 5. Continue low air loss mattress. 6. When applicable maintain blood glucose levels per Providers order. 7. Bilateral Lower Legs - Elevate lower legs off of surface of bed with use of pillows.? Cleanse with [place], Pat dry.? Apply vaseline to both legs, apply layer of Xeroform to open wound beds secure with ABD pad, gauze wrap and tape.? Change Daily. Re-consult wound care Nurse for wound deterioration or wound changes.
== END 2023-11-10 16:21 | disposition home health service (06) | DRG 872 ==
LOC: HO.ED 11-08 06:55 → HO.EDOVER 11-08 11:05 → HO.S3 11-08 13:48
PROVIDERS: Admitting Provider Internal Medicine; Emergency Provider Internal Medicine; PCP Internal Medicine; Visit Provider Internal Medicine
DX: A41.9 Sepsis, unspecified organism (principal); N39.0 Urinary tract infection, site not specified; Z68.43 Body mass index [BMI] 50.0-59.9, adult; G83.4 Cauda equina syndrome; I87.333 Chronic venous hypertension (idiopathic) with ulcer and inflammation of bilateral lower extremity; L97.829 Non-pressure chronic ulcer of other part of left lower leg with unspecified severity; L97.819 Non-pressure chronic ulcer of other part of right lower leg with unspecified severity; B96.4 Proteus (mirabilis) (morganii) as the cause of diseases classified elsewhere; G47.33 Obstructive sleep apnea (adult) (pediatric); Z66 Do not resuscitate; K83.4 Spasm of sphincter of Oddi; E78.5 Hyperlipidemia, unspecified; I48.0 Paroxysmal atrial fibrillation; E66.01 Morbid (severe) obesity due to excess calories; Z79.4 Long term (current) use of insulin; Z79.01 Long term (current) use of anticoagulants; Z79.899 Other long term (current) drug therapy
CPT/HCPCS: 36415; 74176; 80048; 80076; 81001; 82947; 83605; 83690; 83735; 83880; 85025; 85027; 87040; 87086; 87088; 87186; 99285; J0696

== ENCOUNTER → 2023-11-08 11:02 | Outpatient (BNV) | payer MEDICARE, SELFPAY | PROVIDERS: Admitting Provider Internal Medicine; Emergency Provider Internal Medicine; PCP Internal Medicine; Visit Provider Internal Medicine | DX: N39.0 Urinary tract infection, site not specified (principal); A41.9 Sepsis, unspecified organism; E11.9 Type 2 diabetes mellitus without complications | CPT/HCPCS: 99223; 99232; 99239; G0180 ==

== ENCOUNTER 2023-12-12 12:41 | Outpatient (REF) | payer MEDICARE, SELFPAY ==
[2023-12-12 12:45] LABS: MANUAL DIFF FLAG NO
[2023-12-12 12:56] LABS: Basophils Absolute Auto 0.1 X10*3/uL (0.0-0.2); Basophils Percent Auto 0.8 % (0-2); Eosinophils Absolute Auto 0.4 X10*3/uL (0.0-0.4); Eosinophils Percent Auto 4.2 % (0-4); Hematocrit 42.9 % (42.0-52.0); Hemoglobin 13.6 g/dl (14.0-18.0); Imm Gran Abs Auto 0.11 X10*3/uL (0.00-0.03); Imm Gran Pct Auto 1.1 % (0.0-0.4); Lymphocytes Absolute Auto 2.1 X10*3/uL (1.2-4.9); Lymphocytes Percent Auto 20.4 % (20-40); Mean Corpuscular HGB Conc 31.7 g/dl (31.0-36.0); Mean Corpuscular Hemoglobin 27.9 pg (27.0-33.0); Mean Corpuscular Volume 88.1 fL (80.0-98.0); Mean Platelet Volume 10.3 fL (9.4-12.4); Monocytes Absolute Auto 0.5 X10*3/uL (0.1-1.2); Neutrophils Absolute Auto 7.1 x10*3/uL (2.0-8.3); Neutrophils Percent Auto 68.5 % (45-73); Platelet Count 235 X10*3/uL (160-400); Red Blood Count 4.87 X10*6/uL (4.60-5.80); Red Cell Distribution Width 15.4 % (11.0-16.0); White Blood Count 10.3 X10*3/uL (4.8-10.8)
[2023-12-12 15:19] LABS: Estimated Average Glucose 180 mg/dL; Hemoglobin A1C 217.7896 umol/L; Hemoglobin A1c % 7.9 % (<6.0); Total Hemoglobin (HGBA1C) 3489.3253 umol/L
[2023-12-16 09:37] LABS: Fructosamine 299 umol/L (205-285)
== END 2023-12-12 12:42 | disposition home or self-care (01) ==
LOC: HO.LNP 12:41
PROVIDERS: Visit Provider Internal Medicine Endocrinology, Diabetes & Metabolism
DX: E11.29 Type 2 diabetes mellitus with other diabetic kidney complication (principal)
CPT/HCPCS: 82985; 83036; 85025

== ENCOUNTER 2024-03-05 07:51 | Inpatient (IN) | payer MEDICARE, SELFPAY ==
[2024-03-05] VITALS (14 sets, daily range): BP systolic 118–200; BP diastolic 61–96; PULSE 70–127; RESP 16–24; TEMP 36.5–39.3; O2SAT 87–99; BMI 45.0
--- NOTE | ~2024-03-05 | CT_ITS ---
CLINICAL HISTORY: fall CT head without contrast Comparison: 04/20/2023 Findings: No intracranial mass, midline shift, hydrocephalus, or acute hemorrhage. Moderate chronic ischemic white matter disease with volume loss. No acute process in sinuses or mastoids. No acute bony abnormality. Impression: No acute intracranial process This document has been electronically signed by: Ricardo Ramos MD on 03/05/2024 22:01:22
--- NOTE | ~2024-03-05 | CT_ITS ---
CLINICAL HISTORY: mid ABD pain. weakness, recent pneumobilia CT abdomen and pelvis with contrast Comparison: CT/SR - CT ABDOMEN PELVIS WO IV CON - 11/08/23 01:32 EDT Findings: No consolidation or effusion. Moderate pancreatic atrophy. Multiple pancreatic calcifications. Mild infiltration of fat adjacent to the pancreas. Moderate pneumobilia is present. Abdominal organs are otherwise unremarkable. There are no calcified gallstones. There is colonic diverticulosis without evidence of diverticulitis. Moderate fecal retention within the distal colon. Unremarkable pelvic contents. Nonvisualization of the appendix. No secondary findings to suggest appendicitis. No acute fracture. IMPRESSION: 1. There is chronic pancreatitis with possible superimposed acute pancreatitis. 2. Colonic diverticulosis without diverticulitis. This document has been electronically signed by: Ynes Mcfarland MD on 03/05/2024 17:23:01
--- NOTE | ~2024-03-05 | CT_ITS ---
CLINICAL HISTORY: weak, hypoxia, elevated dimer CT angiography chest with contrast. 3D Postprocessing. Comparison: None Findings: Mildly enlarged heart. The thoracic aorta is normal caliber. No pulmonary artery filling defects. The visualized thyroid and mediastinum are unremarkable. Mild heterogeneity of lung parenchyma. No consolidation or pleural effusion. Findings at the level of the abdomen are reported separately. No acute fractures. IMPRESSION: No pulmonary artery embolism. This document has been electronically signed by: Ynes Mcfarland MD on 03/05/2024 17:28:03
--- NOTE | 2024-03-05 08:37 | ECG_ITS ---
Test Reason : ABD PAIN Blood Pressure : / mmHG Vent. Rate : 093 BPM Atrial Rate : 000 BPM P-R Int : 000 ms QRS Dur : 084 ms QT Int : 370 ms P-R-T Axes : 000 097 -08 degrees QTc Int : 460 ms Atrial fibrillation with premature ventricular or aberrantly conducted complexes Rightward axis Low voltage QRS Cannot rule out Anterior infarct , age undetermined Abnormal ECG When compared with ECG of 20-APR-2023 19:46, Questionable change in QRS axis Referred By: Veronica Stoddard Electronically Signed By:Travis Borges
--- NOTE | 2024-03-05 08:42 | ED.ABDPAIN ---
HPI - Abdominal Pain General Chief Complaint: General Medical Stated Complaint: LLQ PAIN,? CONSTIPATION PER EMS Time Seen by Provider: 03/05/24 08:08 Source: patient and EMS Mode of arrival: EMS Limitations: no limitations History of Present Illness ED Provider: Veronica Stoddard NP HPI narrative: Patient is an 79-year-old male who presents emergency department via EMS coming from home today. Patient lives with his . He reports at baseline he is able to walk around but today he was unable to get up as he was feeling significantly weak. His initial expressed concern to EMS was that he has been having a difficult time having a bowel movement he has not had a bowel movement in a few days he feels an urge to go but is unable to. Patient reports that he is having pain to the epigastrium and down the midline of his abdomen. He denies associated nausea or vomiting. EMS reports that when they arrived his breathing appeared quite labored and they were unable to get an O2 saturation reading, therefore he is placed on 4 L via nasal cannula with improvement in work of breathing. Patient admits to a history of COPD and states that when he was residing in [place] he had supplemental oxygen. However he states that since he has been living here, unclear how long, he was told he did not need supplemental oxygen. He denies chest pain, cough, or recent URI symptoms. Denies fevers, chills, hematemesis, diarrhea, recent hematochezia, recent melena, dysuria, urinary frequency, urinary urgency, urinary hesitancy, hematuria. Related Data Home Medications ?Medication ?Instructions ?Recorded ?Confirmed apixaban 5 mg tablet (Eliquis) 5 mg PO BID 03/26/23 03/05/24 atorvastatin 80 mg tablet 80 mg PO DAILY 03/26/23 03/05/24 cholecalciferol (vitamin D3) 25 25 mcg PO DAILY 03/26/23 03/05/24 mcg (1,000 unit) tablet citalopram 20 mg tablet 20 mg PO DAILY 03/26/23 03/05/24 docusate sodium 50 mg capsule 50 mg PO Q6H WITH OXYCODONE 03/26/23 03/05/24 eplerenone 50 mg tablet 50 mg PO DAILY 03/26/23 03/05/24 fluticasone fur. 100 mcg-umeclid 1 ea inhalation DAILY 03/26/23 03/05/24 62.5 mcg-vilant 25 mcg inhalat.powder (Trelegy Ellipta) gabapentin 600 mg tablet 600 mg PO BID 03/26/23 03/05/24 insulin regular hum U-500 conc 500 45 unit subcut DAILY@1730 03/26/23 03/05/24 unit/mL(3 mL) subcut pen (Humulin R U-500 (Conc) Insulin Kwikpen) losartan 50 mg tablet 50 mg PO DAILY 03/26/23 03/05/24 metoprolol succinate 50 mg 25 mg PO DAILY 03/26/23 03/05/24 tablet,extended release 24 hr nystatin 100,000 unit/gram topical 1 appl topical BID PRN abdominal 03/26/23 03/05/24 powder rash omeprazole 20 mg capsule,delayed 20 mg PO DAILY@0630 03/26/23 03/05/24 release oxycodone 10 mg tablet 10 mg PO Q6H PRN Moderate Pain 03/26/23 03/05/24 (Scale Score 5-6) albuterol sulfate 90 mcg/actuation 2 inh inhalation Q6H PRN Shortness 11/08/23 03/05/24 breath activated powder inhaler Of Breath Or Wheezing hydroxyzine pamoate 25 mg capsule 25 mg PO TID PRN itch 11/08/23 03/05/24 insulin regular hum U-500 conc 500 45 unit subcut DAILY@0900 11/08/23 03/05/24 unit/mL(3 mL) subcut pen (Humulin R U-500 (Conc) Insulin Kwikpen) polyethylene glycol 3350 17 17 g PO DAILY 11/08/23 03/05/24 gram/dose oral powder (Miralax) tamsulosin 0.4 mg capsule 0.4 mg PO BEDTIME 11/08/23 03/05/24 triamcinolone acetonide 0.1 % 1 appl topical BID 03/05/24 03/05/24 topical cream Allergies Allergy/AdvReac Type Severity Reaction Status Date / Time No Known Allergies Allergy Verified 03/05/24 08:58 Review of Systems Review of Systems Yes all other systems are reviewed and are negative PMFSH Past Medical History Attestation statement: The following information was validated with the patient. Source: old records reviewed Medical History Paroxysmal A-fib Cauda equina compression CHF (congestive heart failure) Social History Social History Household Members: Spouse Housing: Apartment Do you presently have visiting nurse or other home services: No Unable to assess alcohol history related to: Unknown Alcohol intake: former Patient Tobacco Use Status: Never used Tobacco Smoked in Last 30 Days: No Use of substances other than those prescribed or required for medical reasons: No Advance Directives: Yes Advance Directives on File: Yes Advance Directives Date on File: 04/21/23 service: No Physical Exam ED Vital Signs: Vital Signs - 24 hr 03/05/24 08:10 03/05/24 10:20 03/05/24 10:23 Temperature 98.3 F 98.3 F Pulse Rate 94 113 H Respiratory Rate 22 H 22 H 19 Blood Pressure 118/63 165/93 H Pulse Oximetry 96 87 L 94 Oxygen Delivery Method Nasal Cannula Room Air Room Air Oxygen Flow Rate 03/05/24 10:24 03/05/24 10:39 03/05/24 11:00 Temperature 102.8 F H Pulse Rate 127 H 116 H 115 H Respiratory Rate 24 H 22 H 19 Blood Pressure 165/93 H 186/96 H 200/96 H Pulse Oximetry 96 92 94 Oxygen Delivery Method Room Air Nasal Cannula Nasal Cannula Oxygen Flow Rate 1 1 03/05/24 11:42 03/05/24 13:38 03/05/24 16:26 Temperature 100.2 F 97.7 F Pulse Rate 89 83 71 Respiratory Rate 18 20 17 Blood Pressure 127/81 139/61 142/72 H Pulse Oximetry 95 95 99 Oxygen Delivery Method Nasal Cannula Nasal Cannula Nasal Cannula Oxygen Flow Rate 1 1 2 03/05/24 18:06 03/05/24 18:34 Temperature Pulse Rate 71 82 Respiratory Rate 18 20 Blood Pressure 147/64 H 130/73 Pulse Oximetry 99 99 Oxygen Delivery Method Nasal Cannula Room Air Oxygen Flow Rate 1 BMI result Body Mass Index 45.0 Appearance: Alert.?Oriented to person, place and time. No acute distress.?Normal affect.?? Neck: Normal inspection.? Neck supple.?? CVS: Heart sounds normal. Normal heart rate and rhythm.? Pulses normal.?? Respiratory: No respiratory distress.? Lung sounds diminished at the bilateral bases. No increased work of breathing. On supplemental O2 at 4 L via nasal cannula. Abdomen: Soft and non-tender. No rebound tenderness at McBurney's point. Negative psoas sign. Negative Rovsing sign. Negative Estrella sign. No CVAT. Normoactive bowel sounds. No pulsatile mass.?? Skin: Skin warm and dry.? Normal skin color.? Extremities: Bilateral lower extremity edema and erythema with weeping ulcers Neuro: Moves all extremities spontaneously. Sensation intact bilaterally. Course Course Course Narrative: For Whitney Marte PA-C have accepted care of the patient and signed out pending imaging and likely admission I have independently reviewed the following tests: CT chest: IMPRESSION: No pulmonary artery embolism. This document has been electronically signed by: Ynes Mcfarland MD on 03/05/2024 17:28:03 CT abdomen:IMPRESSION: 1. There is chronic pancreatitis with possible superimposed acute pancreatitis. 2. Colonic diverticulosis without diverticulitis. This document has been electronically signed by: Ynes Mcfarland MD on 03/05/2024 17:23:01 And constipation noted. The patient is newly hypoxic with COPD exacerbation, the CTA is overall unremarkable, without discrete pneumonia. Lactates have been elevated, we will treat for bronchitis, adding Levaquin. The patient received ceftriaxone. Patient also has heart failure unspecified, the CTA does not reflect this, he has mild cardiomegaly, there are no pleural effusions no pulmonary edema, his BNP is not markedly elevated, he is not overtly hypertensive. Speaking with Dr. Valencia , he is asking for an expanded respiratory panel, and to add Lasix. Reevaluation(s) Reevaluation #1: Received call from lab regarding critical values troponin of 104.1, EKG revealing atrial fibrillation, QTC 460, no ST elevation, I suspect that this is demand ischemia, will obtain delta troponin Additionally critical value with lactic acid 2.6. He is noted to have leukocytosis 16,800 with left shift. No electrolyte derangement. No PEPE. At this time given his presenting hypoxia fatigue abdominal pain obtaining CT chest abdomen and pelvis, sepsis alert being called. He does not have signs of severe sepsis as lactate is less than 4, no episodes of hypotension given history of CHF, patient to receive 500 mL normal saline IV fluid, will cover with Rocephin at this time. I am unable to confirm if he has been compliant with his Eliquis, given elevated D-dimer and hypoxia, performing CT angio of the chest in addition to CT abdomen pelvis with contrast. Nursing staff have reported at this time and they have noted his heart rate to be as high as 120 -130, likely AFib RVR at this point, he takes metoprolol at home, no hypotension, will trial metoprolol IV Time: 10:01 Reevaluation #2: Patient experiencing nausea, will receive Zofran IV, at this time noted to be febrile with a rectal temp of 102.8 degrees, receive acetaminophen 1 g IV Time: 10:42 Reevaluation #3: Received call from lab regarding critical values, delta troponin 103.1, flat, again likely secondary to demand ischemia. Repeat lactic acid of 3.2, does meet sepsis criteria. Pending CT abdomen and pelvis as well as chest. Would defer additional IV fluids at this time given his history of CHF, lower extremity edema, hypoxic respiratory requirements and BNP of 331. At this time he is without hypotension, lactate is not greater than 4, does not require the full sepsis fluid bolus at this time. Although I acknowledged that lactic acid is trending upwards, both myself as well as my attending Dr. Tavarez feels strongly that additional IV fluids may worsening condition for him. No evidence of UTI. Time: 13:24 Additional Reevaluation(s): 16:14 Patient signed out to [facility] pending CT chest abdomen and pelvis and re-evaluation, anticipate hospital admission given sepsis and acute hypoxic respiratory failure. Medical Decision Making Medical Decision Making MDM Narrative: Patient is an 79-year-old male with past medical history of morbid obesity, chronic lymphedema with stasis ulcers, heart failure with preserved EF, hypertension, hyperlipidemia, paroxysmal atrial fibrillation medical records including anticoagulation with Eliquis (patient unable to confirm which medications he takes), cauda equina syndrome diagnosed 06/26/2022 predominantly nonambulatory but recently with the ability to self transfer, chronic low back pain on opiates, diabetes, AGNIESZKA, history of pneumobilia. Evaluation he has abdominal tenderness upon palpation to the mid abdomen/epigastric without rigidity or guarding. Lung sounds are diminished bilaterally but without focal areas of adventitious sounds. Associated chest pain to suggest ACS however given past medical history presenting symptoms and hypoxia will obtain EKG to evaluate for ischemia/ACS. Serum labs to evaluate for acute hepatobiliary etiology, cholecystitis, choledocholithiasis, he is without fever jaundice to suggest acute cholangitis. Given tenderness over epigastrium, may possibly be secondary to gastritis, with history of diabetes, pain is well may be secondary to pancreatitis. Lower abdomen is benign. May well be pain secondary to constipation, possibly bowel obstruction. Obtaining urinalysis given recent admission in November for sepsis secondary to UTI Differential Diagnosis Differential Diagnoses: The differential diagnosis associated with the presentation includes (See narrative above) Admission/Observation Consideration of admission/observation: Escalation of care including admission/observation considered (See narrative above ) Lab Data MDM Lab Attestation statement: I reviewed the patient's lab results. (See course narrative) 03/05/24 09:03 03/05/24 09:03 Labs: Lab Results 03/05/24 03/05/24 03/05/24 Range/Units 09:03 12:40 12:46 WBC 16.8 H (4.8-10.8) X10*3/uL RBC 5.20 (4.60-5.80) X10*6/uL Hgb 14.6 (14.0-18.0) g/dl Hct 44.1 (42.0-52.0) % MCV 84.8 (80.0-98.0) fL MCH 28.1 (27.0-33.0) pg MCHC 33.1 (31.0-36.0) g/dl RDW 15.3 (11.0-16.0) % Plt Count 210 (160-400) X10*3/uL MPV 10.0 (9.4-12.4) fL Immature Gran % (Auto) 0.6 H (0.0-0.4) % Neut % (Auto) 87.6 H (45-73) % Lymph % (Auto) 6.9 L (20-40) % Wake % (Auto) 4.3 (2-11) % Eos % (Auto) 0.1 (0-4) % Baso % (Auto) 0.5 (0-2) % Lymph # (Auto) 1.2 (1.2-4.9) X10*3/uL Wake # (Auto) 0.7 (0.1-1.2) X10*3/uL Eos # (Auto) 0.0 (0.0-0.4) X10*3/uL Baso # (Auto) 0.1 (0.0-0.2) X10*3/uL Abs Immat Gran (auto) 0.10 H (0.00-0.03) X10*3/uL Absolute Neuts (auto) 14.7 H (2.0-8.3) x10*3/uL Absolute Nucleated RBC 0.000 (0.0-0.012) X10*3/uL Nucleated RBC % (auto) 0.0 (0.0-0.2) /100WBC PT 15.0 H (10.9-12.4) SEC INR 1.3 H (0.9-1.1) D-Dimer High Sensitivty 549 NG/ML Sodium 136 (135-145) mmol/L Potassium 4.1 (3.3-5.1) mmol/L Chloride 100 (96-108) mmol/L Carbon Dioxide 25 (22-29) mmol/L Anion Gap 15 (12-20) BUN 12 (9-16) mg/dL Creatinine 1.19 (0.5-1.4) mg/dL Estim Creat Clear Calc 74.7 Estimated GFR 59 Random Glucose 217 H (60-115) mg/dL Lactic Acid 2.6 H* (0.5-2.0) mmol/L Lactic Acid F/U @ 2Hr 3.2 H* (0.5-2.0) mmol/L Lactic Acid F/U @ 4Hr (0.5-2.0) mmol/L Calcium 9.2 (8.4-10.2) mg/dL Magnesium 1.6 (1.6-2.6) mg/dL Total Bilirubin 1.4 H (0.0-1.0) mg/dL AST 24 (5-37) U/L ALT 16 (0-40) U/L Alkaline Phosphatase 155 H (39-117) U/L Troponin I High Sens 104.1 H* D 103.1 H* (<3.5-35.0) ng/L B-Natriuretic Peptide 331 H (<100) pg/mL Total Protein 8.1 H (6.5-8.0) g/dL Albumin 3.7 (3.5-5.0) g/dL Lipase < 4 L (8-78) U/L Urine Color Yellow Urine Appearance Clear Urine pH 5.5 (5.0-9.0) Ur Specific [place] 1.020 (1.005-1.025) Urine Protein 30 (1+) H (Neg-Trace) mg/dL Urine Glucose (UA) Negative (Negative) mg/dL Urine Ketones Trace (Negative) mg/dL Urine Blood Negative (Negative) Urine Nitrite Negative (Negative) Ur Leukocyte Esterase Negative (Negative) Urine RBC 0-2 (0-2) /HPF Urine WBC 0-5 (0-5) /HPF Ur Squamous Epith Cells 0-2 (0-2) /HPF Urine Bacteria None Seen (None Seen) Hyaline Casts 0-2 (0-2) /LPF Influenza Type A (PCR) NEGATIVE (Negative) Influenza Type B (PCR) NEGATIVE (Negative) RSV RNA Qual (PCR) NEGATIVE (Negative) SARS-CoV-2 RNA (RT-PCR) NEGATIVE (Negative) 03/05/24 Range/Units 15:12 WBC (4.8-10.8) X10*3/uL RBC (4.60-5.80) X10*6/uL Hgb (14.0-18.0) g/dl Hct (42.0-52.0) % MCV (80.0-98.0) fL MCH (27.0-33.0) pg MCHC (31.0-36.0) g/dl RDW (11.0-16.0) % Plt Count (160-400) X10*3/uL MPV (9.4-12.4) fL Immature Gran % (Auto) (0.0-0.4) % Neut % (Auto) (45-73) % Lymph % (Auto) (20-40) % Wake % (Auto) (2-11) % Eos % (Auto) (0-4) % Baso % (Auto) (0-2) % Lymph # (Auto) (1.2-4.9) X10*3/uL Wake # (Auto) (0.1-1.2) X10*3/uL Eos # (Auto) (0.0-0.4) X10*3/uL Baso # (Auto) (0.0-0.2) X10*3/uL Abs Immat Gran (auto) (0.00-0.03) X10*3/uL Absolute Neuts (auto) (2.0-8.3) x10*3/uL Absolute Nucleated RBC (0.0-0.012) X10*3/uL Nucleated RBC % (auto) (0.0-0.2) /100WBC PT (10.9-12.4) SEC INR (0.9-1.1) D-Dimer High Sensitivty NG/ML Sodium (135-145) mmol/L Potassium (3.3-5.1) mmol/L Chloride (96-108) mmol/L Carbon Dioxide (22-29) mmol/L Anion Gap (12-20) BUN (9-16) mg/dL Creatinine (0.5-1.4) mg/dL Estim Creat Clear Calc Estimated GFR Random Glucose (60-115) mg/dL Lactic Acid (0.5-2.0) mmol/L Lactic Acid F/U @ 2Hr (0.5-2.0) mmol/L Lactic Acid F/U @ 4Hr 2.4 H* (0.5-2.0) mmol/L Calcium (8.4-10.2) mg/dL Magnesium (1.6-2.6) mg/dL Total Bilirubin (0.0-1.0) mg/dL AST (5-37) U/L ALT (0-40) U/L Alkaline Phosphatase (39-117) U/L Troponin I High Sens (<3.5-35.0) ng/L B-Natriuretic Peptide (<100) pg/mL Total Protein (6.5-8.0) g/dL Albumin (3.5-5.0) g/dL Lipase (8-78) U/L Urine Color Urine Appearance Urine pH (5.0-9.0) Ur Specific [place] (1.005-1.025) Urine Protein (Neg-Trace) mg/dL Urine Glucose (UA) (Negative) mg/dL Urine Ketones (Negative) mg/dL Urine Blood (Negative) Urine Nitrite (Negative) Ur Leukocyte Esterase (Negative) Urine RBC (0-2) /HPF Urine WBC (0-5) /HPF Ur Squamous Epith Cells (0-2) /HPF Urine Bacteria (None Seen) Hyaline Casts (0-2) /LPF Influenza Type A (PCR) (Negative) Influenza Type B (PCR) (Negative) RSV RNA Qual (PCR) (Negative) SARS-CoV-2 RNA (RT-PCR) (Negative) Radiology Impression Discussion of test interpretation with radiology: I have reviewed the radiologist's reading. Independent Historian Clinical information obtained from an independent historian. History obtained from or confirmed by: EMS Chronic Conditions Patient?s care impacted by: Other (See narrative above) Medications Administered Generic Name Dose Route Start Last Admin Trade Name Freq PRN Reason Stop Dose Admin Levofloxacin 750 mg in 150 mls @ 100 mls/hr 03/05/24 17:49 03/05/24 18:06 Levaquin IV 03/05/24 19:18 100 mls/hr ONCE ONE Administration Discontinued Medications Generic Name Dose Route Start Last Admin Trade Name Freq PRN Reason Stop Dose Admin Ceftriaxone Sodium 1 gm 03/05/24 10:04 03/05/24 10:25 Ceftriaxone Sodium 1 Gm Vial IVPUSH 03/05/24 10:05 1 gm ONCE ONE Administration Sodium Chloride 500 mls @ 999 mls/hr 03/05/24 10:05 03/05/24 10:57 Ns IV 03/05/24 10:35 Infused .Q31M ONE Infusion Acetaminophen 1,000 mg in 100 mls @ 400 mls/hr 03/05/24 10:41 03/05/24 11:44 Ofirmev IV 03/05/24 10:55 Infused ONCE ONE Infusion Iohexol 100 ml 03/05/24 14:06 03/05/24 14:06 Iohexol 350 Mg/Ml 100 Ml Infus..Btl IV 03/05/24 14:07 100 ml ONCE ONE Administration Metoprolol Tartrate 5 mg 03/05/24 10:17 03/05/24 10:35 Metoprolol Tartrate 5 Mg/5 Ml Vial IVPUSH 03/05/24 10:18 5 mg ONCE ONE Administration Protocol Morphine Sulfate 4 mg 03/05/24 11:47 03/05/24 11:58 Morphine Sulfate 4 Mg/Ml Cartridge IVPUSH 03/05/24 11:48 4 mg ONCE ONE Administration Protocol Morphine Sulfate 4 mg 03/05/24 13:29 03/05/24 13:37 Morphine Sulfate 4 Mg/Ml Cartridge IVPUSH 03/05/24 13:30 4 mg ONCE ONE Administration Protocol Ondansetron HCl 4 mg 03/05/24 10:41 03/05/24 10:57 Ondansetron Hcl 4 Mg/2 Ml Vial IVPUSH 03/05/24 10:42 4 mg ONCE ONE Administration Critical Care Time Critical Care Time Critical Care Time: Yes Total Critical Care Time: 45 Attestation: I personally attest to this critical care time spent taking care of the patient exclusive of all other billable procedures was approximately 45 minutes including initial evaluation of patient, ordering tests, sepsis management, IV morphine and re-evaluation,, EKG interpretation, medical consultation, documentation, re-evaluation. Discharge Plan Discharge Clinical Impression: Acute hypoxemic respiratory failure, COPD (chronic obstructive pulmonary disease), Abdominal pain, Sepsis Patient Disposition: Admitted As Inpatient
--- NOTE | 2024-03-05 09:03 | PC.NURSE ---
patient placed on purwik for safety and skin integrity. Patient urge incontinence and unable to hold for long periods of time.
[2024-03-05 09:11] LABS: MANUAL DIFF FLAG NO
[2024-03-05 09:12] LABS: Basophils Absolute Auto 0.1 X10*3/uL (0.0-0.2); Basophils Percent Auto 0.5 % (0-2); Eosinophils Percent Auto 0.1 % (0-4); Hematocrit 44.1 % (42.0-52.0); Hemoglobin 14.6 g/dl (14.0-18.0); Imm Gran Pct Auto 0.6 % (0.0-0.4); Lymphocytes Absolute Auto 1.2 X10*3/uL (1.2-4.9); Lymphocytes Percent Auto 6.9 % (20-40); Mean Corpuscular HGB Conc 33.1 g/dl (31.0-36.0); Mean Corpuscular Hemoglobin 28.1 pg (27.0-33.0); Mean Corpuscular Volume 84.8 fL (80.0-98.0); Monocytes Absolute Auto 0.7 X10*3/uL (0.1-1.2); Monocytes Percent Auto 4.3 % (2-11); Neutrophils Absolute Auto 14.7 x10*3/uL (2.0-8.3); Neutrophils Percent Auto 87.6 % (45-73); Platelet Count 210 X10*3/uL (160-400); Red Cell Distribution Width 15.3 % (11.0-16.0); White Blood Count 16.8 X10*3/uL (4.8-10.8)
[2024-03-05 09:20] LABS: INTERNATIONAL NORM RATIO 1.3 (0.9-1.1)
[2024-03-05 09:22] LABS: D Dimer High Sensitivity 549 NG/ML
[2024-03-05 09:39] LABS: B Type Natriuretic Peptide 331 pg/mL (<100)
[2024-03-05 09:55] LABS: Influenza A PCR NEGATIVE (Negative); Influenza B PCR NEGATIVE (Negative); Resp Syncy Virus RNA Qual PCR NEGATIVE (Negative); SARS COV2 PCR INHOUSE NEGATIVE (Negative)
[2024-03-05 09:58] LABS: Alanine Aminotransferase 16 U/L (0-40); Albumin Level 3.7 g/dL (3.5-5.0); Alkaline Phosphatase 155 U/L (39-117); Anion Gap 15 (12-20); Aspartate Amino Transferase 24 U/L (5-37); Bilirubin Total 1.4 mg/dL (0.0-1.0); Blood Urea Nitrogen 12 mg/dL (9-16); Calcium 9.2 mg/dL (8.4-10.2); Carbon Dioxide 25 mmol/L (22-29); Chloride 100 mmol/L (96-108); Creatinine Clr Calc Pharmacy 74.7; Estimated Glomerular Filt Rate 59; Glucose Random 217 mg/dL (60-115); Lipase < 4 U/L (8-78); Magnesium 1.6 mg/dL (1.6-2.6); Potassium 4.1 mmol/L (3.3-5.1); Sodium 136 mmol/L (135-145); Total Protein 8.1 g/dL (6.5-8.0)
[2024-03-05 10:00] LABS: Lactic Acid 2.6 mmol/L (0.5-2.0); Troponin-I High Sensitivity 104.1 ng/L (<3.5-35.0)
[2024-03-05] MEDS: cefTRIAXone sodium 1 GM VIAL IVPUSH (10:25)
[2024-03-05] MEDS: 0.9 % Sodium Chloride 500 ML 999 ML IV (10:26)
[2024-03-05] MEDS: Metoprolol Tartrate 5 MG/5 ML VIAL IVPUSH (10:35)
[2024-03-05] MEDS: Acetaminophen 1,000 MG/100 ML PIGGYBACK 400 MG IV (10:57)
[2024-03-05] MEDS: ondansetron HCL 4 MG/2 ML VIAL IVPUSH (10:57)
[2024-03-05 11:10] LABS: Reflex Lactate? Lactic Acid Added
[2024-03-05] MEDS: Morphine Sulfate 4 MG/ML CARTRIDGE IVPUSH ×2 (11:58→13:37)
[2024-03-05 13:09] LABS: Appearance Urine Clear; Color Urine Yellow; Glucose Urine UA Negative (Negative); Leukocyte Esterase Urine Negative (Negative); Nitrite Urine Negative (Negative); PH 5.5 (5.0-9.0); UMIC TRIGGER UACC YES; Urine Blood Negative (Negative); Urine Ketones Trace mg/dL (Negative); Urine Protein 30 (1+) mg/dL (Neg-Trace)
[2024-03-05 13:14] LABS: Bacteria Urine None Seen (None Seen); Hyaline Casts Urine 0-2 /LPF (0-2); RBC Urine 0-2 /HPF (0-2); Squamous Epithelial Cell Urine 0-2 /HPF (0-2); WBC Urine 0-5 /HPF (0-5)
[2024-03-05 13:18] LABS: ~Lactic Acid-LAB USE ONLY 3.2 mmol/L (0.5-2.0)
[2024-03-05 13:24] LABS: Troponin-I High Sensitivity 103.1 ng/L (<3.5-35.0)
[2024-03-05] MEDS: iohexoL 350 MG/ML 100 ML INFUS..BTL IV (14:06)
[2024-03-05 14:50] LABS: Reflex Lactate? 2 Y
[2024-03-05 15:51] LABS: ~Lactic Acid-LAB USE ONLY 2.4 mmol/L (0.5-2.0)
[2024-03-05] MEDS: levoFLOXacin/D5W 750 MG/150 ML PIGGYBACK 100 MG IV (18:06)
--- NOTE | 2024-03-05 18:45 | PHA.MEDREC ---
Addendum entered by Jovanna Riley RPh 03/05/24 18:55: reviewed by [facility]. Original Note: Pharmacy Consult ? Medication Reconciliation Pharmacy has completed the medication reconciliation. Spoke to pt's at bedside to confirm meds. Takes gabapentin 600 mg BID and Humulin R U-500 45 units BID.
--- NOTE | 2024-03-05 18:55 | P.HPHOSP_ITS ---
History of Present Illness Date of Service: 03/05/24 Attending physician on admission: Perri Vlaencia Chief Complaint: sob 79 M PMH morbid obesity, chronic lymphedema with stasis ulcers, hypertension, hyperlipidemia, paroxysmal atrial fibrillation, cauda equina syndrome diagnosed in 06/26/2022 non ambulatory but until recently able to self transfer, chronic low back pain on opiates, diabetes, AGNIESZKA: Patient came to the hospital because of shortness of breath, fever, cough with whitish sputum, also has some edema of the legs, drinking lot of water at home, unsure if he gained any weight, also patient had some upper abdominal pain which seems to be improved. Patient was short of breath and as per ED was hypoxic 87%, tachycardic, fever of 102.8, tachypnea. Patient also has history of unspecified CHF? as per the he was on oxygen 2 years ago unclear reasons in [place]. He was also on Bumex until last year when his stopped it because he could not tolerate. Denies any recent travel or sick contacts, But had? Congestion versus runny nose as per . Patient denies any gross chest pain or palpitations or dizziness. Lab imaging reviewed: Has WBC count of 16.8, CTA negative, CT abdomen also negative except some question of chronic pancreatitis Lipase normal, BNP is elevated from baseline in 300 range Troponin flat in 100 range EKG shows AFib, no gross ST changes ED: Patient was given Lasix , and ask for admission for possible CHF exacerbation. Review of Systems 2 Review of Systems: In addition patient seems to be noncompliant. Yes all other systems are reviewed and are negative [facility] Medical History Paroxysmal A-fib Cauda equina compression CHF (congestive heart failure) Social History Household Members: Spouse Housing: Apartment Do you presently have visiting nurse or other home services: No Unable to assess alcohol history related to: Unknown Alcohol intake: former Patient Tobacco Use Status: Never used Tobacco Smoked in Last 30 Days: No Use of substances other than those prescribed or required for medical reasons: No Advance Directives: Yes Advance Directives on File: Yes Advance Directives Date on File: 04/21/23 service: No Meds Allergies Allergy/AdvReac Type Severity Reaction Status Date / Time No Known Allergies Allergy Verified 03/05/24 08:58 Active Medications: Current Medications Acetaminophen (Acetaminophen 325 Mg Tablet) 650 mg PO Q6H PRN PRN Reason: Pain, Mild 1-3,fever,headache Albuterol/Ipratropium (Albuterol/Iprat 2.5/0.5mg 3 Ml Ampul.Neb) 3 ml INHALE Q4H PRN PRN Reason: sob Calcium Carbonate (Calcium Carbonate 750 Mg Tab.Chew) 750 mg PO Q4H PRN PRN Reason: Heartburn Furosemide (Furosemide 40 Mg/4 Ml Vial) 40 mg IVPUSH DAILY JOSEFA; Protocol Glucose (Glucose Gel 15 Gm Gel..Gram.) 15 gm PO Q15M PRN; Protocol PRN Reason: per Hypoglycemia Standing Ord. Levofloxacin (Levaquin) 750 mg in 150 mls @ 100 mls/hr IV ONCE ONE Stop: 03/05/24 19:18 Last Admin: 03/05/24 18:06 Dose: 100 mls/hr Dextrose (D10) 250 mls @ 750 mls/hr IV Q15M PRN; Protocol PRN Reason: per Hypoglycemia Standing Ord. Insulin Human Lispro (Insulin Lispro 100 Unit/Ml 3 Ml Vial) 0 unit SUBCUT QIDACHS [facility]; Protocol Magnesium Hydroxide (Milk Of Magnesia 30 Ml Oral.Susp) 30 ml PO DAILY PRN PRN Reason: Constipation Melatonin (Melatonin 3 Mg Tablet) 6 mg PO BEDTIME PRN PRN Reason: Insomnia Sodium Chloride (0.9 % Sodium Chloride Flush 3 Ml Syringe) 3 ml IVFLUSH QSHIFT [facility] Home Medications ?Medication ?Instructions ?Recorded ?Confirmed ?Last Taken ?Type apixaban 5 mg tablet (Eliquis) 5 mg PO BID 03/26/23 03/05/24 03/04/24 History atorvastatin 80 mg tablet 80 mg PO DAILY 03/26/23 03/05/24 03/04/24 History cholecalciferol (vitamin D3) 25 25 mcg PO DAILY 03/26/23 03/05/24 03/04/24 History mcg (1,000 unit) tablet citalopram 20 mg tablet 20 mg PO DAILY 03/26/23 03/05/24 03/04/24 History docusate sodium 50 mg capsule 50 mg PO Q6H WITH OXYCODONE 03/26/23 03/05/24 03/04/24 History eplerenone 50 mg tablet 50 mg PO DAILY 03/26/23 03/05/24 03/04/24 History fluticasone fur. 100 mcg-umeclid 1 ea inhalation DAILY 03/26/23 03/05/24 03/04/24 History 62.5 mcg-vilant 25 mcg inhalat.powder (Trelegy Ellipta) gabapentin 600 mg tablet 600 mg PO BID 03/26/23 03/05/24 03/04/24 History insulin regular hum U-500 conc 500 45 unit subcut DAILY@1730 03/26/23 03/05/24 03/04/24 History unit/mL(3 mL) subcut pen (Humulin R U-500 (Conc) Insulin Kwikpen) losartan 50 mg tablet 50 mg PO DAILY 03/26/23 03/05/24 03/04/24 History metoprolol succinate 50 mg 25 mg PO DAILY 03/26/23 03/05/24 03/04/24 History tablet,extended release 24 hr nystatin 100,000 unit/gram topical 1 appl topical BID PRN abdominal 03/26/23 03/05/24 03/26/23 History powder rash omeprazole 20 mg capsule,delayed 20 mg PO DAILY@0630 03/26/23 03/05/24 03/04/24 History release oxycodone 10 mg tablet 10 mg PO Q6H PRN Moderate Pain 03/26/23 03/05/24 11/07/23 History (Scale Score 5-6) albuterol sulfate 90 mcg/actuation 2 inh inhalation Q6H PRN Shortness 11/08/23 03/05/24 Unknown History breath activated powder inhaler Of Breath Or Wheezing hydroxyzine pamoate 25 mg capsule 25 mg PO TID PRN itch 11/08/23 03/05/24 Unknown History insulin regular hum U-500 conc 500 45 unit subcut DAILY@0900 11/08/23 03/05/24 03/04/24 History unit/mL(3 mL) subcut pen (Humulin R U-500 (Conc) Insulin Kwikpen) polyethylene glycol 3350 17 17 g PO DAILY 11/08/23 03/05/24 03/04/24 History gram/dose oral powder (Miralax) tamsulosin 0.4 mg capsule 0.4 mg PO BEDTIME 11/08/23 03/05/24 03/04/24 History triamcinolone acetonide 0.1 % 1 appl topical BID 03/05/24 03/05/24 03/04/24 History topical cream Physical Exam 2 Vital Signs and Narrative: Vital Signs: Last Vital Signs Temp 97.7 F 03/05/24 16:26 Pulse 82 03/05/24 18:34 Resp 20 03/05/24 18:34 BP 130/73 03/05/24 18:34 Pulse Ox 99 03/05/24 18:34 O2 Del Method Room Air 03/05/24 18:34 O2 Flow Rate 1 03/05/24 18:06 Oxygen Flow Rate 3 03/05/24 08:10 BMI result Body Mass Index 45.0 Appearance: Alert.? Oriented X3.?morbid obesity cvs: irregular rythem, [id number] , no murmur res:air entry diminshed ,no wheezing or rales ,respiratory efforts poor. abd: no rebound or guarding ,nt, bs present. ext pulses present , no cyanosis . neuro: axo3 , nonfocal. Results Labs 03/05/24 09:03 03/05/24 09:03 Labs: Laboratory Results - last 24 hr 03/05/24 03/05/24 03/05/24 09:03 12:40 12:46 MCV 84.8 MCH 28.1 MCHC 33.1 RDW 15.3 Plt Count 210 MPV 10.0 Immature Gran % (Auto) 0.6 H Neut % (Auto) 87.6 H Lymph % (Auto) 6.9 L Payne % (Auto) 4.3 Eos % (Auto) 0.1 Baso % (Auto) 0.5 Lymph # (Auto) 1.2 Payne # (Auto) 0.7 Eos # (Auto) 0.0 Baso # (Auto) 0.1 Abs Immat Gran (auto) 0.10 H Absolute Neuts (auto) 14.7 H Absolute Nucleated RBC 0.000 Nucleated RBC % (auto) 0.0 PT 15.0 H INR 1.3 H D-Dimer High Sensitivty 549 Anion Gap 15 Estim Creat Clear Calc 74.7 Estimated GFR 59 Random Glucose 217 H Lactic Acid 2.6 H* Lactic Acid F/U @ 2Hr 3.2 H* Lactic Acid F/U @ 4Hr Calcium 9.2 Magnesium 1.6 Total Bilirubin 1.4 H AST 24 ALT 16 Alkaline Phosphatase 155 H Troponin I High Sens 104.1 H* D 103.1 H* B-Natriuretic Peptide 331 H Total Protein 8.1 H Albumin 3.7 Lipase < 4 L Urine Color Yellow Urine Appearance Clear Urine pH 5.5 Ur Specific [place] 1.020 Urine Protein 30 (1+) H Urine Glucose (UA) Negative Urine Ketones Trace Urine Blood Negative Urine Nitrite Negative Ur Leukocyte Esterase Negative Urine RBC 0-2 Urine WBC 0-5 Ur Squamous Epith Cells 0-2 Urine Bacteria None Seen Hyaline Casts 0-2 Influenza Type A (PCR) NEGATIVE Influenza Type B (PCR) NEGATIVE RSV RNA Qual (PCR) NEGATIVE SARS-CoV-2 RNA (RT-PCR) NEGATIVE 03/05/24 15:12 MCV MCH MCHC RDW Plt Count MPV Immature Gran % (Auto) Neut % (Auto) Lymph % (Auto) Payne % (Auto) Eos % (Auto) Baso % (Auto) Lymph # (Auto) Payne # (Auto) Eos # (Auto) Baso # (Auto) Abs Immat Gran (auto) Absolute Neuts (auto) Absolute Nucleated RBC Nucleated RBC % (auto) PT INR D-Dimer High Sensitivty Anion Gap Estim Creat Clear Calc Estimated GFR Random Glucose Lactic Acid Lactic Acid F/U @ 2Hr Lactic Acid F/U @ 4Hr 2.4 H* Calcium Magnesium Total Bilirubin AST ALT Alkaline Phosphatase Troponin I High Sens B-Natriuretic Peptide Total Protein Albumin Lipase Urine Color Urine Appearance Urine pH Ur Specific [place] Urine Protein Urine Glucose (UA) Urine Ketones Urine Blood Urine Nitrite Ur Leukocyte Esterase Urine RBC Urine WBC Ur Squamous Epith Cells Urine Bacteria Hyaline Casts Influenza Type A (PCR) Influenza Type B (PCR) RSV RNA Qual (PCR) SARS-CoV-2 RNA (RT-PCR) Assessment and Plan (1) Acute hypoxemic respiratory failure: Status: Acute Plan 79 M PMH morbid obesity, chronic lymphedema with stasis ulcers, hypertension, hyperlipidemia, paroxysmal atrial fibrillation, cauda equina syndrome diagnosed in 06/26/2022 non ambulatory but until recently able to self transfer, chronic low back pain on opiates, diabetes, AGNIESZKA: Patient came to the hospital because of shortness of breath, fever, cough with whitish sputum, also has some edema of the legs, drinking lot of water at home, unsure if he gained any weight, also patient had some upper abdominal pain which seems to be improved. Sirs (fever ,tachycardia,tachypnea,leucocytsosis )-? unclear source added respiratory viral panel cta -neg for Pulm embolism , ct abd-negative elevated bnp ? viral syndrome blood culture pending given ceftriaxone /levquinx1 dose in ed. Acute lactic acidosis: Possibly related to albuterol use at home, CHF. Trending down, no need for lactic acid drawn until clinical scenario changes. Acute hypoxemic respiratory failure secondary to Possible CHF exacerbation- etiology unclear Elevated troponin likely due to demand. plan: moniter i/o daily weights lasxi 40 mg iv bid echo and cardiology eval. htn :bp seems stable hold bp meds dm: Diabetic diet, insulin with coverage Medical reconciliation still pending PAF: med reconcilliation pending moniter raghavendra chronic lymphedema : Monitor closely. Other medical conditions reconciliation pending including sleep apnea ordered night BiPAP Patient will benefit from 2 midnight stays-considering CHF exacerbation as well as sirs-need IV Lasix, diuresis, foot culture pending. Above management discussed with the patient at bedside with his present, assessment and plan coordination time spent 70 minute, patient dnr/dni. Quality Stroke Does the patient have a stroke diagnosis?: No VTE Prior VTE?: No VTE Risk Level:: Medical - moderate - high VTE Device Contraindication: N/A - Device Ordered VTE Drug Contraindication: N/A - Med Ordered
[2024-03-05] MEDS: Furosemide 40 MG/4 ML VIAL IVPUSH (19:16)
--- NOTE | 2024-03-05 19:23 | MHC.EDTECH ---
This tech took over care of pt at 1900,rounded and introduced self to pt,vitals taken,pt given a can of diet gingerale per request,pt appears comfortable, at bedside,call reynolds in reach
--- NOTE | 2024-03-05 20:26 | PC.NURSE ---
1000 ml drainage in urine collection canister. emptied and replaced
[2024-03-05 20:42] LABS: Glucose, Whole Blood 307 mg/dL (60-115)
[2024-03-05] MEDS: Insulin Lispro 100 UNIT/ML 3 ML VIAL SUBCUT (20:51)
[2024-03-05] MEDS: vancomycin/NS 2,000 MG/500 ML PLAST..BAG 250 MG IV (20:53)
--- NOTE | 2024-03-05 21:15 | PC.NURSE ---
POC 307. SS insulin lispro given with snack turkey sandwich and applesauce.
--- NOTE | 2024-03-05 22:45 | PC.NURSE ---
another 1000ml urine (pale, clear yellow) emptied from drainage container. purewik area checked - dry
--- NOTE | 2024-03-05 23:41 | PC.RT ---
Patient states he does not wish to wear mask tonight. He states he does not wear this at home. Will attempt to reconcile this with /certified public accountant. Patient not in distress at this time. This RT educated patient on benefit/risk. Patient states he understands and asks CCT to turn off lights so he can sleep.
--- NOTE | 2024-03-05 23:42 | MHC.EDTECH ---
Patient placed in hospital bed at this time,for comfort,pillows placed under both arms,patient is resting comfortably,call reynolds in reach
[2024-03-06] MEDS: 0.9 % Sodium Chloride Flush 3 ML SYRINGE IVFLUSH ×3 (02:18→17:22)
[2024-03-06 02:31] VITALS: BP 152/66; PULSE 79; RESP 16; TEMP 36.8; O2SAT 94
[2024-03-06] MEDS: Acetaminophen 325 MG TABLET 650 MG PO ×2 (04:59→21:33)
[2024-03-06 05:57] VITALS: BMI 45.0
--- NOTE | 2024-03-06 06:13 | HO.SKINPHOTO ---
Location: Category: Stage: Length: Width: Depth: cm Location: Category: Stage: Length: Width: Depth: cm Location: Category: Stage: Length: Width: Depth: cm Location: Category: Stage: Length: Width: Depth: cm Location: Category: Stage: Length: Width: Depth: cm Location: Category: Stage: Length: Width: Depth: cm
[2024-03-06 06:59] LABS: Hematocrit 42.3 % (42.0-52.0); Mean Corpuscular HGB Conc 33.1 g/dl (31.0-36.0); Mean Corpuscular Hemoglobin 28.2 pg (27.0-33.0); Mean Corpuscular Volume 85.1 fL (80.0-98.0); Mean Platelet Volume 10.2 fL (9.4-12.4); Platelet Count 197 X10*3/uL (160-400); Red Blood Count 4.97 X10*6/uL (4.60-5.80); Red Cell Distribution Width 15.2 % (11.0-16.0); White Blood Count 13.5 X10*3/uL (4.8-10.8)
[2024-03-06 07:06] LABS: Anion Gap 15 (12-20); Blood Urea Nitrogen 13 mg/dL (9-16); Calcium 8.7 mg/dL (8.4-10.2); Carbon Dioxide 27 mmol/L (22-29); Chloride 99 mmol/L (96-108); Creatinine Clr Calc Pharmacy 88.9; Estimated Glomerular Filt Rate > 60; Glucose Random 239 mg/dL (60-115); Potassium 3.7 mmol/L (3.3-5.1); Sodium 137 mmol/L (135-145)
[2024-03-06 07:12] LABS: B Type Natriuretic Peptide 319 pg/mL (<100)
[2024-03-06 07:32] LABS: Glucose, Whole Blood 233 mg/dL (60-115)
[2024-03-06 07:42] VITALS: BP 156/69; PULSE 90; RESP 18; TEMP 36.6; O2SAT 92
[2024-03-06] MEDS: Insulin Lispro 100 UNIT/ML 3 ML VIAL SUBCUT ×4 (07:44→21:51)
[2024-03-06] MEDS: Furosemide 40 MG/4 ML VIAL IVPUSH (07:45)
[2024-03-06] MEDS: Milk of Magnesia 30 ML ORAL.SUSP PO (07:55)
[2024-03-06] MEDS: Fluticasone/Umeclidinium/Vilanterol 100/62.5/25 BLST.W.DEV 1 PUFF INHALE (08:24)
[2024-03-06 08:27] VITALS: PULSE 84; RESP 18
[2024-03-06] MEDS: Apixaban 5 MG TABLET PO ×2 (09:20→21:33)
[2024-03-06] MEDS: Spironolactone 25 MG TABLET PO (09:20)
[2024-03-06] MEDS: Losartan Potassium 50 MG TABLET PO (09:20)
[2024-03-06] MEDS: Atorvastatin Calcium 80 MG TABLET PO (09:20)
[2024-03-06] MEDS: Escitalopram Oxalate 10 MG TABLET PO (09:20)
[2024-03-06] MEDS: Cholecalciferol (Vitamin D3) 25 MCG TABLET PO (09:20)
[2024-03-06] MEDS: polyethylene glycoL 3350 17 GM POWD.PACK PO (09:20)
[2024-03-06] MEDS: Metoprolol Succinate ER 25 MG TAB.ER.24H PO (09:20)
[2024-03-06] MEDS: Gabapentin 600 MG TABLET PO ×2 (09:25→21:33)
[2024-03-06] MEDS: Docusate Sodium 100 MG/10 ML LIQUID 50 MG PO (09:25)
--- NOTE | 2024-03-06 09:26 | MHC.CM.PN ---
IMM 03/06/24, Pt lives with his , she takes care of him and he is active with [facility], update sent to them via [facility]. PCP confirm: Dr. De Luna, HCP on file and confirmed: Katie, and dtr Sandra. For DME: walker, power W/C that is not working. Pt has been to [facility] in the past, HCP requests he not go there again if STR is needed, requests [facility] if rec. DCP: home, resume services. Will need BLS transport. CM to follow for DC needs.
[2024-03-06] MEDS: vancomycin HCL 750 MG in 0.9 % Sodium Chloride 250 ML 265 MG IV (09:39)
[2024-03-06 10:56] LABS: Adenovirus PCR Not Detected (Not Detect.); Bordetella parapertussis PCR Not Detected (Not Detect.); Bordetella pertussis PCR Not Detected (Not Detect.); Chlamydia pneumoniae PCR Not Detected (Not Detect.); Coronavirus 229E PCR Not Detected (Not Detect.); Coronavirus HKU1 PCR Not Detected (Not Detect.); Coronavirus NL63 PCR Not Detected (Not Detect.); Coronavirus OC43 PCR Not Detected (Not Detect.); Human metapneumovirus PCR Not Detected (Not Detect.); Influenza A PCR Not Detected (Not Detect.); Influenza B PCR Not Detected (Not Detect.); Mycoplasma pneumoniae PCR Not Detected (Not Detect.); Parainfluenza 1 PCR Not Detected (Not Detect.); Parainfluenza 2 PCR Not Detected (Not Detect.); Parainfluenza 3 PCR Not Detected (Not Detect.); Parainfluenza 4 PCR Not Detected (Not Detect.); RSV PCR Not Detected (Not Detect.); Rhino/Enterovirus PCR Not Detected (Not Detect.)
[2024-03-06 11:03] VITALS: BP 127/78; PULSE 94; RESP 18; TEMP 36.7; O2SAT 96
[2024-03-06 11:30] LABS: SARS-CoV-2 PCR Not Detected (Not Detect.)
--- NOTE | 2024-03-06 11:32 | P.CONCA_ITS ---
History of Present Illness History of Present Illness Date of Service: 03/06/24 Requesting physician: Perri Valencia Chief complaint: chf Narrative: 79-year-old gentleman presenting with recent viral illness and abdominal discomfort. He is being treated as sepsis currently with systemic inflammatory response syndrome. He was also noticed to have significant peripheral edema and previously was on Bumex. Clinically he was felt to be in heart failure and has been on diuretics. He also has what appears to be permanent atrial fibrillation and has been on Eliquis. Looks like he was on losartan and eplerenone in the past 2. He is a poor historian. He is denying chest discomfort. He is saying he is out of breath all the time. Denying palpitations. Telemetry reviewed showing atrial fibrillation with rapid ventricular response. [facility] Past Medical History Medical History Paroxysmal A-fib Cauda equina compression CHF (congestive heart failure) Social History Social History Household Members: Spouse Housing: Apartment Do you presently have visiting nurse or other home services: Yes Unable to assess alcohol history related to: Unknown Alcohol intake: former Patient Tobacco Use Status: Never used Tobacco Advance Directives Date on File: 04/21/23 service: No Meds Allergies Allergy/AdvReac Type Severity Reaction Status Date / Time No Known Allergies Allergy Verified 03/05/24 08:58 Active Medications: Current Medications Acetaminophen (Acetaminophen 325 Mg Tablet) 650 mg PO Q6H PRN PRN Reason: Pain, Mild 1-3,fever,headache Last Admin: 03/06/24 04:59 Dose: 650 mg Albuterol Sulfate (Albuterol Sulfate 90 Mcg 8 Gm Inhaler) 2 puff INHALE Q6H PRN PRN Reason: Shortness Of Breath Or Wheezing Apixaban (Apixaban 5 Mg Tablet) 5 mg PO BID [facility] Last Admin: 03/06/24 09:20 Dose: 5 mg Atorvastatin Calcium (Atorvastatin Calcium 80 Mg Tablet) 80 mg PO DAILY [facility] Last Admin: 03/06/24 09:20 Dose: 80 mg Calcium Carbonate (Calcium Carbonate 750 Mg Tab.Chew) 750 mg PO Q4H PRN PRN Reason: Heartburn Docusate Sodium (Docusate Sodium 100 Mg/10 Ml Liquid) 50 mg PO Q6H [facility] Last Admin: 03/06/24 09:25 Dose: 50 mg Escitalopram Oxalate (Escitalopram Oxalate 10 Mg Tablet) 10 mg PO DAILY [facility] Last Admin: 03/06/24 09:20 Dose: 10 mg Fluticasone/Umeclidinium/Vilanterol (Fluticasone/Umeclidinium/Vilanterol 100/62.5/25 Blst.W.Dev) 1 puff INHALE RDAILY [facility] Last Admin: 03/06/24 08:24 Dose: 1 puff Furosemide (Furosemide 40 Mg/4 Ml Vial) 40 mg IVPUSH DAILY [facility]; Protocol Last Admin: 03/06/24 07:45 Dose: 40 mg Gabapentin (Gabapentin 600 Mg Tablet) 600 mg PO BID [facility] Last Admin: 03/06/24 09:25 Dose: 600 mg Glucose (Glucose Gel 15 Gm Gel..Gram.) 15 gm PO Q15M PRN; Protocol PRN Reason: per Hypoglycemia Standing Ord. Dextrose (D10) 250 mls @ 750 mls/hr IV Q15M PRN; Protocol PRN Reason: per Hypoglycemia Standing Ord. Vancomycin HCl 750 mg/ Sodium (Chloride) 265 mls @ 265 mls/hr IV Q12H [facility] Last Infusion: 03/06/24 10:40 Dose: Infused Insulin Human Lispro (Insulin Lispro 100 Unit/Ml 3 Ml Vial) 0 unit SUBCUT QIDACHS [facility]; Protocol Last Admin: 03/06/24 07:44 Dose: 4 unit Losartan Potassium (Losartan Potassium 50 Mg Tablet) 50 mg PO DAILY [facility]; Protocol Last Admin: 03/06/24 09:20 Dose: 50 mg Magnesium Hydroxide (Milk Of Magnesia 30 Ml Oral.Susp) 30 ml PO DAILY PRN PRN Reason: Constipation Last Admin: 03/06/24 07:55 Dose: 30 ml Melatonin (Melatonin 3 Mg Tablet) 6 mg PO BEDTIME PRN PRN Reason: Insomnia Metoprolol Succinate (Metoprolol Succinate Er 50 Mg Tab.Er.24h) 50 mg PO DAILY [facility]; Protocol Nystatin (Nystatin Powder 15 Gm Bottle) 1 appl TOPICAL BID PRN; Protocol PRN Reason: abdominal rash Omeprazole (Omeprazole 20 Mg Capsule.Dr) 20 mg PO DAILY@0630 [facility] Oxycodone HCl (Oxycodone Hcl Immed Release 5 Mg Tablet) 10 mg PO Q6H PRN PRN Reason: Moderate Pain (Scale Score 5-6) Pharmacy Consult (Consult Rx Vancomycin Dosing) 1 each MISCELLANE DAILY PRN PRN Reason: Consult order Polyethylene Glycol (Polyethylene Glycol 3350 17 Gm Powd.Pack) 17 gm PO DAILY [facility] Last Admin: 03/06/24 09:20 Dose: 17 gm Sodium Chloride (0.9 % Sodium Chloride Flush 3 Ml Syringe) 3 ml IVFLUSH QSHIFT [facility] Last Admin: 03/06/24 07:44 Dose: 3 ml Spironolactone (Spironolactone 25 Mg Tablet) 25 mg PO DAILY [facility] Last Admin: 03/06/24 09:20 Dose: 25 mg Tamsulosin HCl (Tamsulosin Hcl 0.4 Mg Capsule) 0.4 mg PO BEDTIME [facility] Triamcinolone Acetonide (Triamcinolone Acet 0.1 % Cream 15 Gm Tube) 1 appl TOPICAL BID [facility]; Protocol Vitamin D (Cholecalciferol (Vitamin D3) 25 Mcg Tablet) 25 mcg PO DAILY [facility] Last Admin: 03/06/24 09:20 Dose: 25 mcg Home Medications ?Medication ?Instructions ?Recorded ?Confirmed ?Last Taken ?Type apixaban 5 mg tablet (Eliquis) 5 mg PO BID 03/26/23 03/05/24 03/04/24 History atorvastatin 80 mg tablet 80 mg PO DAILY 03/26/23 03/05/24 03/04/24 History cholecalciferol (vitamin D3) 25 25 mcg PO DAILY 03/26/23 03/05/24 03/04/24 History mcg (1,000 unit) tablet citalopram 20 mg tablet 20 mg PO DAILY 03/26/23 03/05/24 03/04/24 History docusate sodium 50 mg capsule 50 mg PO Q6H WITH OXYCODONE 03/26/23 03/05/24 03/04/24 History eplerenone 50 mg tablet 50 mg PO DAILY 03/26/23 03/05/24 03/04/24 History fluticasone fur. 100 mcg-umeclid 1 ea inhalation DAILY 03/26/23 03/05/24 03/04/24 History 62.5 mcg-vilant 25 mcg inhalat.powder (Trelegy Ellipta) gabapentin 600 mg tablet 600 mg PO BID 03/26/23 03/05/2424 History insulin regular hum U-500 conc 500 45 unit subcut DAILY@1730 03/26/23 03/05/24 03/04/24 History unit/mL(3 mL) subcut pen (Humulin R U-500 (Conc) Insulin Kwikpen) losartan 50 mg tablet 50 mg PO DAILY 03/26/23 03/05/24 03/04/24 History metoprolol succinate 50 mg 25 mg PO DAILY 03/26/23 03/05/24 03/04/24 History tablet,extended release 24 hr nystatin 100,000 unit/gram topical 1 appl topical BID PRN abdominal 03/26/23 03/05/24 03/26/23 History powder rash omeprazole 20 mg capsule,delayed 20 mg PO DAILY@0630 03/26/23 03/05/24 03/04/24 History release oxycodone 10 mg tablet 10 mg PO Q6H PRN Moderate Pain 03/26/23 03/05/24 11/07/23 History (Scale Score 5-6) albuterol sulfate 90 mcg/actuation 2 inh inhalation Q6H PRN Shortness 11/08/23 03/05/24 Unknown History breath activated powder inhaler Of Breath Or Wheezing hydroxyzine pamoate 25 mg capsule 25 mg PO TID PRN itch 11/08/23 03/05/24 Unknown History insulin regular hum U-500 conc 500 45 unit subcut DAILY@0900 11/08/23 03/05/24 03/04/24 History unit/mL(3 mL) subcut pen (Humulin R U-500 (Conc) Insulin Kwikpen) polyethylene glycol 3350 17 17 g PO DAILY 11/08/23 03/05/24 03/04/24 History gram/dose oral powder (Miralax) tamsulosin 0.4 mg capsule 0.4 mg PO BEDTIME 11/08/23 03/05/24 03/04/24 History triamcinolone acetonide 0.1 % 1 appl topical BID 03/05/24 03/05/24 03/04/24 History topical cream Physical Exam 2 Vital Signs: Vital Signs: Last Vital Signs Temp 98.1 F 03/06/24 11:03 Pulse 94 03/06/24 11:03 Resp 18 03/06/24 11:03 BP 127/78 03/06/24 11:03 Pulse Ox 96 03/06/24 11:03 O2 Del Method Room Air 03/06/24 11:03 O2 Flow Rate 2 03/05/24 23:01 Oxygen Flow Rate 3 03/05/24 08:10 BMI result Body Mass Index 45.0 GENERAL APPEARANCE: in no acute distress, pleasant. NECK: no carotid bruit, + jugular venous distention. SKIN: no suspicious lesions, warm and dry. HEART: no murmurs, irregular rate and rhythm. LUNGS: clear to auscultation bilaterally. ABDOMEN: soft, nontender. EXTREMITIES: Mild pitting edema. Positive for lymphedema. PERIPHERAL PULSES: equal. NEUROLOGIC: No gross deficits, AAO X 3 Objective Labs and Meds 03/06/24 05:49 03/06/24 05:49 Lab results: Laboratory Results - last 24 hr 03/05/24 03/05/24 03/05/24 12:40 12:46 15:12 WBC RBC Hgb Hct MCV MCH MCHC RDW Plt Count MPV Absolute Nucleated RBC Nucleated RBC % (auto) Sodium Potassium Chloride Carbon Dioxide Anion Gap BUN Creatinine Estim Creat Clear Calc Estimated GFR POC Glucose Random Glucose Lactic Acid F/U @ 2Hr 3.2 H* Lactic Acid F/U @ 4Hr 2.4 H* Calcium Troponin I High Sens 103.1 H* B-Natriuretic Peptide Urine Color Yellow Urine Appearance Clear Urine pH 5.5 Ur Specific [place] 1.020 Urine Protein 30 (1+) H Urine Glucose (UA) Negative Urine Ketones Trace Urine Blood Negative Urine Nitrite Negative Ur Leukocyte Esterase Negative Urine RBC 0-2 Urine WBC 0-5 Ur Squamous Epith Cells 0-2 Urine Bacteria None Seen Hyaline Casts 0-2 Respiratory Panel [place] Adenovirus (Rapid PCR) B.pert (TEM-PCR) B.parapertussis DNA PCR C. pneumoniae DNA (PCR) Coronavirus OC43 (PCR) Coronavirus HKU1 (PCR) Coronavirus 229E (PCR) Coronavirus NL63 (PCR) Human Metapneumovir PCR Influenza A (RT-PCR) Influenza B (RT-PCR) M. pneumoniae (PCR) Parainfluenza 1 (PCR) Parainfluenza 2 (PCR) Parainfluenza 3 (PCR) Parainfluenza 4 (PCR) RSV (PCR) Entero/Rhino (PCR) SARS-CoV-2 RNA (RT-PCR) 03/05/24 03/05/24 03/06/24 18:57 20:39 05:49 WBC 13.5 H RBC 4.97 Hgb 14.0 Hct 42.3 MCV 85.1 MCH 28.2 MCHC 33.1 RDW 15.2 Plt Count 197 MPV 10.2 Absolute Nucleated RBC 0.000 Nucleated RBC % (auto) 0.0 Sodium 137 Potassium 3.7 Chloride 99 Carbon Dioxide 27 Anion Gap 15 BUN 13 Creatinine 1.00 Estim Creat Clear Calc 88.9 Estimated GFR > 60 POC Glucose 307 H Random Glucose 239 H Lactic Acid F/U @ 2Hr Lactic Acid F/U @ 4Hr Calcium 8.7 Troponin I High Sens B-Natriuretic Peptide 319 H Urine Color Urine Appearance Urine pH Ur Specific [place] Urine Protein Urine Glucose (UA) Urine Ketones Urine Blood Urine Nitrite Ur Leukocyte Esterase Urine RBC Urine WBC Ur Squamous Epith Cells Urine Bacteria Hyaline Casts Respiratory Panel [place] See Note Adenovirus (Rapid PCR) Not Detected B.pert (TEM-PCR) Not Detected B.parapertussis DNA PCR Not Detected C. pneumoniae DNA (PCR) Not Detected Coronavirus OC43 (PCR) Not Detected Coronavirus HKU1 (PCR) Not Detected Coronavirus 229E (PCR) Not Detected Coronavirus NL63 (PCR) Not Detected Human Metapneumovir PCR Not Detected Influenza A (RT-PCR) Not Detected Influenza B (RT-PCR) Not Detected M. pneumoniae (PCR) Not Detected Parainfluenza 1 (PCR) Not Detected Parainfluenza 2 (PCR) Not Detected Parainfluenza 3 (PCR) Not Detected Parainfluenza 4 (PCR) Not Detected RSV (PCR) Not Detected Entero/Rhino (PCR) Not Detected SARS-CoV-2 RNA (RT-PCR) Not Detected 03/06/24 07:16 WBC RBC Hgb Hct MCV MCH MCHC RDW Plt Count MPV Absolute Nucleated RBC Nucleated RBC % (auto) Sodium Potassium Chloride Carbon Dioxide Anion Gap BUN Creatinine Estim Creat Clear Calc Estimated GFR POC Glucose 233 H Random Glucose Lactic Acid F/U @ 2Hr Lactic Acid F/U @ 4Hr Calcium Troponin I High Sens B-Natriuretic Peptide Urine Color Urine Appearance Urine pH Ur Specific [place] Urine Protein Urine Glucose (UA) Urine Ketones Urine Blood Urine Nitrite Ur Leukocyte Esterase Urine RBC Urine WBC Ur Squamous Epith Cells Urine Bacteria Hyaline Casts Respiratory Panel [place] Adenovirus (Rapid PCR) B.pert (TEM-PCR) B.parapertussis DNA PCR C. pneumoniae DNA (PCR) Coronavirus OC43 (PCR) Coronavirus HKU1 (PCR) Coronavirus 229E (PCR) Coronavirus NL63 (PCR) Human Metapneumovir PCR Influenza A (RT-PCR) Influenza B (RT-PCR) M. pneumoniae (PCR) Parainfluenza 1 (PCR) Parainfluenza 2 (PCR) Parainfluenza 3 (PCR) Parainfluenza 4 (PCR) RSV (PCR) Entero/Rhino (PCR) SARS-CoV-2 RNA (RT-PCR) Assessment and Plan (1) Acute CHF: Status: Acute (2) Persistent atrial fibrillation: Status: Acute Plan 79 year gentleman presenting for SIRS and is currently on antibiotics. He was also noticed to be clinically volume overloaded and in heart failure. No records in our system currently. No previous EF assessment. We will do echocardiography tomorrow. In the meantime IV diuretics. Increase Toprol-XL to 50 mg daily. Monitor blood pressure and electrolytes closely on losartan and spironolactone. We will follow along with you. Thank you for allowing me to participate in the care of your patient. Please feel free to contact me if you have any questions. Procedures Date of Service Date of Service: 03/06/24
[2024-03-06 11:50] LABS: Glucose, Whole Blood 277 mg/dL (60-115)
[2024-03-06] MEDS: Metoprolol Tartrate 25 MG TABLET PO (12:16)
--- NOTE | 2024-03-06 13:09 | P.PNIM_ITS ---
Subjective Subjective Date of Service: 03/06/24 Interval History: chf Review of Systems sob seems somewhat improving has sob with minimal excersion denies any chest pain Physical Exam 2 Vital Signs: Vital Signs: Last Vital Signs Temp 98.1 F 03/06/24 11:03 Pulse 94 03/06/24 11:03 Resp 18 03/06/24 11:03 BP 127/78 03/06/24 11:03 Pulse Ox 96 03/06/24 11:03 O2 Del Method Room Air 03/06/24 11:03 O2 Flow Rate 2 03/05/24 23:01 Oxygen Flow Rate 3 03/05/24 08:10 BMI result Body Mass Index 45.0 Appearance: Alert.? Oriented X3.?morbid obesity cvs: irregular rythem, [id number] , no murmur res:air entry diminshed ,no wheezing or rales ,respiratory efforts poor. abd: no rebound or guarding ,nt, bs present. ext pulses present , no cyanosis . neuro: axo3 , nonfocal. Objective Data Active Medications Acetaminophen (Acetaminophen 325 Mg Tablet) 650 mg PO Q6H PRN PRN Reason: Pain, Mild 1-3,fever,headache Last Admin: 03/06/24 04:59 Dose: 650 mg Documented By: CYNTHIA Albuterol Sulfate (Albuterol Sulfate 90 Mcg 8 Gm Inhaler) 2 puff INHALE Q6H PRN PRN Reason: Shortness Of Breath Or Wheezing Apixaban (Apixaban 5 Mg Tablet) 5 mg PO BID [facility] [place] Last Admin: 03/06/24 09:20 Dose: 5 mg Documented By: FCO Atorvastatin Calcium (Atorvastatin Calcium 80 Mg Tablet) 80 mg PO DAILY [facility] [place] Last Admin: 03/06/24 09:20 Dose: 80 mg Documented By: FCO Calcium Carbonate (Calcium Carbonate 750 Mg Tab.Chew) 750 mg PO Q4H PRN PRN Reason: Heartburn Docusate Sodium (Docusate Sodium 100 Mg/10 Ml Liquid) 50 mg PO Q6H [facility] [place] Last Admin: 03/06/24 09:25 Dose: 50 mg Documented By: FCO Escitalopram Oxalate (Escitalopram Oxalate 10 Mg Tablet) 10 mg PO DAILY [facility] [place] Last Admin: 03/06/24 09:20 Dose: 10 mg Documented By: [facility]CO Fluticasone/Umeclidinium/Vilanterol (Fluticasone/Umeclidinium/Vilanterol 100/62.5/25 Blst.W.Dev) 1 puff INHALE RDAILY [facility] [place] Last Admin: 03/06/24 08:24 Dose: 1 puff Documented By: CHUNG Furosemide (Furosemide 40 Mg/4 Ml Vial) 40 mg IVPUSH DAILY [facility] [place]; Protocol Last Admin: 03/06/24 07:45 Dose: 40 mg Documented By: FCO Gabapentin (Gabapentin 600 Mg Tablet) 600 mg PO BID [facility] [place] Last Admin: 03/06/24 09:25 Dose: 600 mg Documented By: FCO Glucose (Glucose Gel 15 Gm Gel..Gram.) 15 gm PO Q15M PRN; Protocol PRN Reason: per Hypoglycemia Standing Ord. Dextrose (D10) 250 mls @ 750 mls/hr IV Q15M PRN; Protocol PRN Reason: per Hypoglycemia Standing Ord. Vancomycin HCl 750 mg/ Sodium (Chloride) 265 mls @ 265 mls/hr IV Q12H [facility] [place] Last Infusion: 03/06/24 10:40 Dose: Infused Documented By: FCO Insulin Human Lispro (Insulin Lispro 100 Unit/Ml 3 Ml Vial) 0 unit SUBCUT QIDACHS [facility] [place]; Protocol Last Admin: 03/06/24 12:17 Dose: 6 unit Documented By: FCO Losartan Potassium (Losartan Potassium 50 Mg Tablet) 50 mg PO DAILY [facility] [place]; Protocol Last Admin: 03/06/24 09:20 Dose: 50 mg Documented By: FCO Magnesium Hydroxide (Milk Of Magnesia 30 Ml Oral.Susp) 30 ml PO DAILY PRN PRN Reason: Constipation Last Admin: 03/06/24 07:55 Dose: 30 ml Documented By: FCO Melatonin (Melatonin 3 Mg Tablet) 6 mg PO BEDTIME PRN PRN Reason: Insomnia Metoprolol Succinate (Metoprolol Succinate Er 50 Mg Tab.Er.24h) 50 mg PO DAILY [facility] [place]; Protocol Nystatin (Nystatin Powder 15 Gm Bottle) 1 appl TOPICAL BID PRN; Protocol PRN Reason: abdominal rash Omeprazole (Omeprazole 20 Mg Capsule.Dr) 20 mg PO DAILY@0630 [facility] [place] Oxycodone HCl (Oxycodone Hcl Immed Release 5 Mg Tablet) 10 mg PO Q6H PRN PRN Reason: Moderate Pain (Scale Score 5-6) Pharmacy Consult (Consult Rx Vancomycin Dosing) 1 each MISCELLANE DAILY PRN PRN Reason: Consult order Polyethylene Glycol (Polyethylene Glycol 3350 17 Gm Powd.Pack) 17 gm PO DAILY [facility] [place] Last Admin: 03/06/24 09:20 Dose: 17 gm Documented By: FCO Sodium Chloride (0.9 % Sodium Chloride Flush 3 Ml Syringe) 3 ml IVFLUSH QSHIFT [facility] [place] Last Admin: 03/06/24 07:44 Dose: 3 ml Documented By: FCO Spironolactone (Spironolactone 25 Mg Tablet) 25 mg PO DAILY [facility] [place] Last Admin: 03/06/24 09:20 Dose: 25 mg Documented By: FCO Tamsulosin HCl (Tamsulosin Hcl 0.4 Mg Capsule) 0.4 mg PO BEDTIME [facility] [place] Triamcinolone Acetonide (Triamcinolone Acet 0.1 % Cream 15 Gm Tube) 1 appl TOPICAL BID [facility] [place]; Protocol Vitamin D (Cholecalciferol (Vitamin D3) 25 Mcg Tablet) 25 mcg PO DAILY [facility] [place] Last Admin: 03/06/24 09:20 Dose: 25 mcg Documented By: FCO Labs 03/06/24 05:49 03/06/24 05:49 Labs: Laboratory Results - last 24 hr 03/05/24 03/05/24 03/05/24 12:40 12:46 15:12 MCV MCH MCHC RDW Plt Count MPV Absolute Nucleated RBC Nucleated RBC % (auto) Anion Gap Estim Creat Clear Calc Estimated GFR POC Glucose Random Glucose Lactic Acid F/U @ 2Hr 3.2 H* Lactic Acid F/U @ 4Hr 2.4 H* Calcium Troponin I High Sens 103.1 H* B-Natriuretic Peptide Urine Color Yellow Urine Appearance Clear Urine pH 5.5 Ur Specific [place] 1.020 Urine Protein 30 (1+) H Urine Glucose (UA) Negative Urine Ketones Trace Urine Blood Negative Urine Nitrite Negative Ur Leukocyte Esterase Negative Urine RBC 0-2 Urine WBC 0-5 Ur Squamous Epith Cells 0-2 Urine Bacteria None Seen Hyaline Casts 0-2 Respiratory Panel [place] Adenovirus (Rapid PCR) B.pert (TEM-PCR) B.parapertussis DNA PCR C. pneumoniae DNA (PCR) Coronavirus OC43 (PCR) Coronavirus HKU1 (PCR) Coronavirus 229E (PCR) Coronavirus NL63 (PCR) Human Metapneumovir PCR Influenza A (RT-PCR) Influenza B (RT-PCR) M. pneumoniae (PCR) Parainfluenza 1 (PCR) Parainfluenza 2 (PCR) Parainfluenza 3 (PCR) Parainfluenza 4 (PCR) RSV (PCR) Entero/Rhino (PCR) SARS-CoV-2 RNA (RT-PCR) 03/05/24 03/05/24 03/06/24 18:57 20:39 05:49 MCV 85.1 MCH 28.2 MCHC 33.1 RDW 15.2 Plt Count 197 MPV 10.2 Absolute Nucleated RBC 0.000 Nucleated RBC % (auto) 0.0 Anion Gap 15 Estim Creat Clear Calc 88.9 Estimated GFR > 60 POC Glucose 307 H Random Glucose 239 H Lactic Acid F/U @ 2Hr Lactic Acid F/U @ 4Hr Calcium 8.7 Troponin I High Sens B-Natriuretic Peptide 319 H Urine Color Urine Appearance Urine pH Ur Specific [place] Urine Protein Urine Glucose (UA) Urine Ketones Urine Blood Urine Nitrite Ur Leukocyte Esterase Urine RBC Urine WBC Ur Squamous Epith Cells Urine Bacteria Hyaline Casts Respiratory Panel [place] See Note Adenovirus (Rapid PCR) Not Detected B.pert (TEM-PCR) Not Detected B.parapertussis DNA PCR Not Detected C. pneumoniae DNA (PCR) Not Detected Coronavirus OC43 (PCR) Not Detected Coronavirus HKU1 (PCR) Not Detected Coronavirus 229E (PCR) Not Detected Coronavirus NL63 (PCR) Not Detected Human Metapneumovir PCR Not Detected Influenza A (RT-PCR) Not Detected Influenza B (RT-PCR) Not Detected M. pneumoniae (PCR) Not Detected Parainfluenza 1 (PCR) Not Detected Parainfluenza 2 (PCR) Not Detected Parainfluenza 3 (PCR) Not Detected Parainfluenza 4 (PCR) Not Detected RSV (PCR) Not Detected Entero/Rhino (PCR) Not Detected SARS-CoV-2 RNA (RT-PCR) Not Detected 03/06/24 03/06/24 07:16 11:01 MCV MCH MCHC RDW Plt Count MPV Absolute Nucleated RBC Nucleated RBC % (auto) Anion Gap Estim Creat Clear Calc Estimated GFR POC Glucose 233 H 277 H Random Glucose Lactic Acid F/U @ 2Hr Lactic Acid F/U @ 4Hr Calcium Troponin I High Sens B-Natriuretic Peptide Urine Color Urine Appearance Urine pH Ur Specific [place] Urine Protein Urine Glucose (UA) Urine Ketones Urine Blood Urine Nitrite Ur Leukocyte Esterase Urine RBC Urine WBC Ur Squamous Epith Cells Urine Bacteria Hyaline Casts Respiratory Panel [place] Adenovirus (Rapid PCR) B.pert (TEM-PCR) B.parapertussis DNA PCR C. pneumoniae DNA (PCR) Coronavirus OC43 (PCR) Coronavirus HKU1 (PCR) Coronavirus 229E (PCR) Coronavirus NL63 (PCR) Human Metapneumovir PCR Influenza A (RT-PCR) Influenza B (RT-PCR) M. pneumoniae (PCR) Parainfluenza 1 (PCR) Parainfluenza 2 (PCR) Parainfluenza 3 (PCR) Parainfluenza 4 (PCR) RSV (PCR) Entero/Rhino (PCR) SARS-CoV-2 RNA (RT-PCR) Microbiology Microbiology Results: Microbiology 03/05/24 09:03 Blood Culture - Preliminary Blood - Venous No growth after 24 hours. 03/05/24 09:03 Blood Culture - Preliminary Blood - Venous Prelim: GPC Gram Stain only Assessment and Plan (1) Persistent atrial fibrillation: Status: Acute (2) Acute CHF: Status: Acute Plan 79 M PMH morbid obesity, chronic lymphedema with stasis ulcers, hypertension, hyperlipidemia, paroxysmal atrial fibrillation, cauda equina syndrome diagnosed in 06/26/2022 non ambulatory but until recently able to self transfer, chronic low back pain on opiates, diabetes, AGNIESZKA: Patient came to the hospital because of shortness of breath, fever, cough with whitish sputum, also has some edema of the legs, drinking lot of water at home, unsure if he gained any weight, also patient had some upper abdominal pain which seems to be improved. Sirs (fever ,tachycardia,tachypnea,leucocytsosis )-? ? viral syndrome respiratory viral panel negative cta -neg for Pulm embolism , ct abd-negative elevated bnp blood culture 1/2 grmapositive cocci started on iv vanco Id eval. Acute lactic acidosis: Possibly related to albuterol use at home, CHF. Trending down, no need for lactic acid drawn until clinical scenario changes. Acute hypoxemic respiratory failure secondary to Possible CHF exacerbation- etiology unclear Elevated troponin likely due to demand. plan: moniter i/o daily weights lasxi 40 mg iv daily echo added and cardiology eval-continue losartan/sprinolactone /lasix. htn :bp seems stable hold bp meds dm: Diabetic diet, insulin with coverage PAF: mild elevated hr 100-120's adjusted metoprolol to 50 mg bid. morbid obesity/chronic lymphedema : encouraged to lose weight and cut down calories. Monitor closely. sleep apnea : night BiPAP ongoing need for hospitlisation-considering CHF exacerbation , ?bacteremia as well as sirs-need IV Lasix, diuresis, blood culture final awiating. Quality Stroke Does the patient have a stroke diagnosis?: No VTE Prior VTE?: No VTE Risk Level:: Medical - moderate - high VTE Device Contraindication: N/A - Device Ordered VTE Drug Contraindication: N/A - Med Ordered
[2024-03-06] MEDS: Triamcinolone Acet 0.1 % Cream 15 GM TUBE 1 APPL TOPICAL ×2 (14:05→22:00)
[2024-03-06 15:03] VITALS: BP 127/59; PULSE 71; RESP 18; TEMP 36.4; O2SAT 94
[2024-03-06 15:26] LABS: Glucose, Whole Blood 243 mg/dL (60-115)
[2024-03-06 18:52] LABS: Vancomycin Random 13.6 mcg/mL (15-20)
[2024-03-06 19:58] VITALS: BP 163/70; PULSE 81; RESP 18; TEMP 36.4; O2SAT 96
[2024-03-06] MEDS: Melatonin 3 MG TABLET 6 MG PO (21:33)
[2024-03-06] MEDS: Tamsulosin HCL 0.4 MG CAPSULE PO (21:33)
[2024-03-06] MEDS: vancomycin HCL 1,000 MG in 0.9 % Sodium Chloride 250 ML 270 MG IV (21:34)
[2024-03-06 21:47] LABS: Glucose, Whole Blood 239 mg/dL (60-115)
[2024-03-06 21:47] LABS: Glucose, Whole Blood 256 mg/dL (60-115)
[2024-03-07] VITALS (8 sets, daily range): BP systolic 114–160; BP diastolic 56–79; PULSE 63–102; RESP 16–18; TEMP 36–36.5; O2SAT 90–96
--- NOTE | 2024-03-07 00:50 | W.PM.IDCN ---
History of Present Illness Data of Consult Service Date: 03/06/24 Requesting physician: Perri Valencia Primary Care Provider: Rufus De Luna MD [facility] Reason for consult: bacteremia He presents with shortness of breath via EMS. He has COPD and was on 4 liters oxygen but now not on oxygen at [place]. He has 1/2 gram positive cocci on 03/05. He also had fever and tachycardia. Review of Systems Review of Systems: Yes all other systems are reviewed and are negative [facility] Past Medical History Medical History (Updated 03/07/24 @ 00:53 by Gail Blancas MD) Bacteremia Paroxysmal A-fib Cauda equina compression CHF (congestive heart failure) Family History Family history: reviewed and not pertinent Social History Social History Household Members: Spouse Housing: Apartment Do you presently have visiting nurse or other home services: Yes Unable to assess alcohol history related to: Unknown Alcohol intake: former Patient Tobacco Use Status: Never used Tobacco Advance Directives Date on File: 04/21/23 service: No Meds Allergies Allergy/AdvReac Type Severity Reaction Status Date / Time No Known Allergies Allergy Verified 03/05/24 08:58 Active Medications: Current Medications Acetaminophen (Acetaminophen 325 Mg Tablet) 650 mg PO Q6H PRN PRN Reason: Pain, Mild 1-3,fever,headache Last Admin: 03/06/24 21:33 Dose: 650 mg Albuterol Sulfate (Albuterol Sulfate 90 Mcg 8 Gm Inhaler) 2 puff INHALE Q6H PRN PRN Reason: Shortness Of Breath Or Wheezing Apixaban (Apixaban 5 Mg Tablet) 5 mg PO BID [facility] Last Admin: 03/06/24 21:33 Dose: 5 mg Atorvastatin Calcium (Atorvastatin Calcium 80 Mg Tablet) 80 mg PO DAILY [facility] Last Admin: 03/06/24 09:20 Dose: 80 mg Calcium Carbonate (Calcium Carbonate 750 Mg Tab.Chew) 750 mg PO Q4H PRN PRN Reason: Heartburn Docusate Sodium (Docusate Sodium 100 Mg/10 Ml Liquid) 50 mg PO Q6H [facility] Last Admin: 03/06/24 22:20 Dose: Not Given Escitalopram Oxalate (Escitalopram Oxalate 10 Mg Tablet) 10 mg PO DAILY [facility] Last Admin: 03/06/24 09:20 Dose: 10 mg Fluticasone/Umeclidinium/Vilanterol (Fluticasone/Umeclidinium/Vilanterol 100/62.5/25 Blst.W.Dev) 1 puff INHALE RDAILY [facility] Last Admin: 03/06/24 08:24 Dose: 1 puff Furosemide (Furosemide 40 Mg/4 Ml Vial) 40 mg IVPUSH DAILY [facility]; Protocol Last Admin: 03/06/24 07:45 Dose: 40 mg Gabapentin (Gabapentin 600 Mg Tablet) 600 mg PO BID [facility] Last Admin: 03/06/24 21:33 Dose: 600 mg Glucose (Glucose Gel 15 Gm Gel..Gram.) 15 gm PO Q15M PRN; Protocol PRN Reason: per Hypoglycemia Standing Ord. Dextrose (D10) 250 mls @ 750 mls/hr IV Q15M PRN; Protocol PRN Reason: per Hypoglycemia Standing Ord. Vancomycin HCl 1,000 mg/ (Sodium Chloride) 270 mls @ 270 mls/hr IV Q12H [facility] Last Infusion: 03/06/24 22:34 Dose: Infused Insulin Human Lispro (Insulin Lispro 100 Unit/Ml 3 Ml Vial) 0 unit SUBCUT QIDACHS [facility]; Protocol Last Admin: 03/06/24 21:51 Dose: 4 unit Losartan Potassium (Losartan Potassium 50 Mg Tablet) 50 mg PO DAILY [facility]; Protocol Last Admin: 03/06/24 09:20 Dose: 50 mg Magnesium Hydroxide (Milk Of Magnesia 30 Ml Oral.Susp) 30 ml PO DAILY PRN PRN Reason: Constipation Last Admin: 03/06/24 07:55 Dose: 30 ml Melatonin (Melatonin 3 Mg Tablet) 6 mg PO BEDTIME PRN PRN Reason: Insomnia Last Admin: 03/06/24 21:33 Dose: 6 mg Metoprolol Succinate (Metoprolol Succinate Er 50 Mg Tab.Er.24h) 50 mg PO DAILY [facility]; Protocol Nystatin (Nystatin Powder 15 Gm Bottle) 1 appl TOPICAL BID PRN; Protocol PRN Reason: abdominal rash Omeprazole (Omeprazole 20 Mg Capsule.Dr) 20 mg PO DAILY@0630 [facility] Oxycodone HCl (Oxycodone Hcl Immed Release 5 Mg Tablet) 10 mg PO Q6H PRN PRN Reason: Moderate Pain (Scale Score 5-6) Pharmacy Consult (Consult Rx Vancomycin Dosing) 1 each MISCELLANE DAILY PRN PRN Reason: Consult order Polyethylene Glycol (Polyethylene Glycol 3350 17 Gm Powd.Pack) 17 gm PO DAILY [facility] Last Admin: 03/06/24 09:20 Dose: 17 gm Sodium Chloride (0.9 % Sodium Chloride Flush 3 Ml Syringe) 3 ml IVFLUSH QSHIFT [facility] Last Admin: 03/06/24 17:22 Dose: 3 ml Spironolactone (Spironolactone 25 Mg Tablet) 25 mg PO DAILY [facility] Last Admin: 03/06/24 09:20 Dose: 25 mg Tamsulosin HCl (Tamsulosin Hcl 0.4 Mg Capsule) 0.4 mg PO BEDTIME [facility] Last Admin: 03/06/24 21:33 Dose: 0.4 mg Triamcinolone Acetonide (Triamcinolone Acet 0.1 % Cream 15 Gm Tube) 1 appl TOPICAL BID [facility]; Protocol Last Admin: 03/06/24 14:05 Dose: 1 appl Vitamin D (Cholecalciferol (Vitamin D3) 25 Mcg Tablet) 25 mcg PO DAILY [facility] Last Admin: 03/06/24 09:20 Dose: 25 mcg Home Medications ?Medication ?Instructions ?Recorded ?Confirmed ?Last Taken ?Type apixaban 5 mg tablet (Eliquis) 5 mg PO BID 03/26/23 03/05/24 03/04/24 History atorvastatin 80 mg tablet 80 mg PO DAILY 03/26/23 03/05/24 03/04/24 History cholecalciferol (vitamin D3) 25 25 mcg PO DAILY 03/26/23 03/05/24 03/04/24 History mcg (1,000 unit) tablet citalopram 20 mg tablet 20 mg PO DAILY 03/26/23 03/05/24 03/04/24 History docusate sodium 50 mg capsule 50 mg PO Q6H WITH OXYCODONE 03/26/23 03/05/24 03/04/24 History eplerenone 50 mg tablet 50 mg PO DAILY 03/26/23 03/05/24 03/04/24 History fluticasone fur. 100 mcg-umeclid 1 ea inhalation DAILY 03/26/23 03/05/24 03/04/24 History 62.5 mcg-vilant 25 mcg inhalat.powder (Trelegy Ellipta) gabapentin 600 mg tablet 600 mg PO BID 03/26/23 03/05/24 03/04/24 History insulin regular hum U-500 conc 500 45 unit subcut DAILY@1730 03/26/23 03/05/24 03/04/24 History unit/mL(3 mL) subcut pen (Humulin R U-500 (Conc) Insulin Kwikpen) losartan 50 mg tablet 50 mg PO DAILY 03/26/23 03/05/24 03/04/24 History metoprolol succinate 50 mg 25 mg PO DAILY 03/26/23 03/05/24 03/04/24 History tablet,extended release 24 hr nystatin 100,000 unit/gram topical 1 appl topical BID PRN abdominal 03/26/23 03/05/24 03/26/23 History powder rash omeprazole 20 mg capsule,delayed 20 mg PO DAILY@0630 03/26/23 03/05/24 03/04/24 History release oxycodone 10 mg tablet 10 mg PO Q6H PRN Moderate Pain 03/26/23 03/05/24 11/07/23 History (Scale Score 5-6) albuterol sulfate 90 mcg/actuation 2 inh inhalation Q6H PRN Shortness 11/08/23 03/05/24 Unknown History breath activated powder inhaler Of Breath Or Wheezing hydroxyzine pamoate 25 mg capsule 25 mg PO TID PRN itch 11/08/23 03/05/24 Unknown History insulin regular hum U-500 conc 500 45 unit subcut DAILY@0900 11/08/23 03/05/24 03/04/24 History unit/mL(3 mL) subcut pen (Humulin R U-500 (Conc) Insulin Kwikpen) polyethylene glycol 3350 17 17 g PO DAILY 11/08/23 03/05/24 03/04/24 History gram/dose oral powder (Miralax) tamsulosin 0.4 mg capsule 0.4 mg PO BEDTIME 11/08/23 03/05/24 03/04/24 History triamcinolone acetonide 0.1 % 1 appl topical BID 03/05/24 03/05/24 03/04/24 History topical cream Physical Exam Vital Signs: Vital Signs: Last Vital Signs Temp 96.8 F 03/07/24 00:00 Pulse 75 03/07/24 00:00 Resp 18 03/07/24 00:00 BP 133/79 03/07/24 00:00 Pulse Ox 90 L 03/07/24 00:00 O2 Del Method Room Air 03/07/24 00:00 O2 Flow Rate 2 03/05/24 23:01 Oxygen Flow Rate 3 03/05/24 08:10 BMI result Body Mass Index 45.0 Const: General: cooperative HEENT: Head: Yes normal to inspection Face and sinus: Yes normal facial exam Mouth: Normal oral and palatal mucosa present Teeth and gingiva: dentition normal Eyes: General: appearance normal, both eyes and all related structures Pupils: Equal, round and reactive pupils present Resp: Effort & Inspection: Actively coughing Cardio: Rate: regular rate Rhythm: regular rhythm GI: Palpation (GI): Soft to palpation and nontender : General: Yes no CVA tenderness Back/Spine/Pelvis: Back: no CVA tenderness Skin: General skin exam: no rashes or lesions noted Neuro: General: moves all extremities Cranial nerves: Yes Equal, round and reactive pupils present Extrem: General: Yes normal to inspection Psych: Appearance: grossly normal Results Labs 03/06/24 05:49 03/06/24 05:49 Labs: Short CBC 03/06/24 Range/Units 05:49 WBC 13.5 H (4.8-10.8) X10*3/uL Hgb 14.0 (14.0-18.0) g/dl Hct 42.3 (42.0-52.0) % Plt Count 197 (160-400) X10*3/uL BMP 03/06/24 05:49 Sodium 137 Potassium 3.7 Chloride 99 Carbon Dioxide 27 BUN 13 Creatinine 1.00 Calcium 8.7 Microbiology Microbiology Results: Microbiology 03/05/24 09:03 Blood - Venous Blood Culture - Preliminary No growth after 24 hours. 03/05/24 09:03 Blood - Venous Blood Culture - Preliminary Prelim: GPC Gram Stain only Assessment and Plan (1) Sepsis: Status: Acute (2) COPD (chronic obstructive pulmonary disease): Status: Acute (3) Bacteremia: Status: Acute Plan Probable COPD exacerbation-treat. Continue Vancomycin until staph identified. Await cultures.
--- NOTE | 2024-03-07 07:00 | CA_ITS ---
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 Technically difficult study despite use of contrast agent 2. Limited visualization of left ventricle with normal LV ejection fraction of 65-70% with moderate LVH 3. Limited visualization of cardiac valves Findings Procedure Information Contrast agent, definity, is being given per protocol without apparent complications. Left Ventricle The left ventricle was not well visualized. Normal left ventricular cavity size. There is moderately increased left ventricular wall thickness. The left ventricular systolic function is normal. The visually estimated ejection fraction is between 65-70%. Diastolic function is indeterminate on the basis of available data. Right Ventricle The right ventricle was not well visualized. Atria The left atrium was not well visualized. Interatrial shunt cannot be excluded. The right atrium was not well visualized. Aortic Valve The aortic valve was not well visualized. There is no aortic valve stenosis. Mitral Valve The mitral valve was not well visualized. Pulmonic Valve The pulmonic valve was not well visualized. Tricuspid Valve The tricuspid valve was not well visualized. Tricuspid regurgitation envelope is inadequate for calculation of right ventricular systolic pressure. Great Vessels The aorta was not well visualized. The pulmonary artery was not well visualized. Venous The inferior vena cava was not well visualized. Pericardium/Pleural The pericardium was not well visualized. Prior Study Comparison No prior study available for comparison. Measurements 2D Linear Measurements IVSd: 1.09 0.6-0.9/0.6-1.0 cm LVIDd: 3.64 3.9-5.3/4.2-5.9 cm LVIDd Index: 1.38 2.4-3.2/2.2-3.1 cm/m2 LVIDs: 2.90 2.0-3.6 cm LVPWd: 1.20 0.7-1.1 cm Ao Root: 2.70 2.1-3.5 cm LA Diam: 4.60 2.7-3.8/3.0-4.0 cm LAIDs Index: 1.74 1.5-2.3 cm/m2 LV Mass: 166.71 67-162/88-224 g LV Mass Index: 63.15 43-95/49-115 g/m2 LVOT Diam: 2.00 3.0+(-)1.3 cm 2D Systolic Function EF 4C: 70.00 >55% EF 2C: 73.60 >55% EF BiP: 72.40 >55% Mitral Valve MV Pk E: 1.01 MV Decel Time: 145.00 E'Lateral: 8.59 E'Medial: 5.44 E/E' Med: 18.60 E/E' Lat: 11.80 PHT: 42.00 MVA PHT: 5.24 Decel Pierce: 6.97 Aortic Valve AoV Pk Eliceo: 1.20 AoV Mn Eliceo: 0.98 AoV VTI: 0.23 AoV Pk Grad: 6.00 Aov Mn Grad: 4.00 LVOT LVOT Diam: 2.00 LVOT Area: 3.14 Diastolic Function MV Pk E: 1.01 E'Medial: 5.44 E/E' Med: 18.60 E' Laterial: 8.59 E/E' Lat: 11.80 Right Ventricle TAPSE (mm): 18.90 TVS' Eliceo: 13.50 Tricuspid Valve TR Pk Elieco: 3.04 TR Pk Grad: 37.00 Great Vessels Aorta Ao Root-2D: 2.70 2.0-3.7 cm Ao Asc: 3.30 2.1-3.4 cm Pulmonary Valve PV Pk Eliceo: 0.88 Peak PV Grad: 3.00 Updated in Other Vendor System with Status of Final Clemente Jarrett MD electronically signed on 03/07/2024 3:44:32 PM with status of Final
[2024-03-07 07:10] LABS: Anion Gap 12 (12-20); Blood Urea Nitrogen 20 mg/dL (9-16); Calcium 8.6 mg/dL (8.4-10.2); Carbon Dioxide 30 mmol/L (22-29); Chloride 99 mmol/L (96-108); Estimated Glomerular Filt Rate > 60; Glucose Random 236 mg/dL (60-115); Potassium 3.6 mmol/L (3.3-5.1); Sodium 137 mmol/L (135-145)
[2024-03-07 07:47] LABS: Glucose, Whole Blood 216 mg/dL (60-115)
[2024-03-07] MEDS: Insulin Lispro 100 UNIT/ML 3 ML VIAL SUBCUT ×4 (08:16→20:47)
[2024-03-07] MEDS: Omeprazole 20 MG CAPSULE.DR PO (08:16)
[2024-03-07] MEDS: Cholecalciferol (Vitamin D3) 25 MCG TABLET PO (08:16)
[2024-03-07] MEDS: Losartan Potassium 50 MG TABLET PO (08:16)
[2024-03-07] MEDS: Apixaban 5 MG TABLET PO ×2 (08:16→19:56)
[2024-03-07] MEDS: vancomycin HCL 1,000 MG in 0.9 % Sodium Chloride 250 ML 270 MG IV ×2 (08:16→22:18)
[2024-03-07] MEDS: Escitalopram Oxalate 10 MG TABLET PO (08:16)
[2024-03-07] MEDS: Atorvastatin Calcium 80 MG TABLET PO (08:16)
[2024-03-07] MEDS: Gabapentin 600 MG TABLET PO ×2 (08:16→19:55)
[2024-03-07] MEDS: Spironolactone 25 MG TABLET PO (08:16)
[2024-03-07] MEDS: Furosemide 40 MG/4 ML VIAL IVPUSH (08:17)
[2024-03-07] MEDS: Fluticasone/Umeclidinium/Vilanterol 100/62.5/25 BLST.W.DEV 1 PUFF INHALE (08:27)
[2024-03-07] MEDS: polyethylene glycoL 3350 17 GM POWD.PACK PO (08:37)
[2024-03-07] MEDS: Metoprolol Succinate ER 50 MG TAB.ER.24H PO (08:38)
--- NOTE | 2024-03-07 10:16 | MHC.CM.PN ---
Per ROUNDS discussion, Patient is not yet medically cleared (IV Lasix); Patient may benefit from a PT eval to assist with disposition. CM will follow.
[2024-03-07 10:53] LABS: Glucose, Whole Blood 298 mg/dL (60-115)
[2024-03-07] MEDS: Triamcinolone Acet 0.1 % Cream 15 GM TUBE 1 APPL TOPICAL ×2 (11:13→19:56)
[2024-03-07] MEDS: 0.9 % Sodium Chloride Flush 3 ML SYRINGE IVFLUSH ×2 (11:15)
--- NOTE | 2024-03-07 12:13 | P.PNCA_ITS ---
Subjective Subjective Date of Service: 03/07/24 Principal diagnosis: Heart failure, atrial fibrillation Interval history: Patient was diuresed about 1500 cc. Denies any significant shortness of breath. As per the the leg edema is improved. Heart rate remains controlled. Review of Systems Constitutional: Reports fatigue and Reports weakness Reports system reviewed and no additional complaints, except as documented Cardiovascular: Denies chest pain, Reports leg edema, Denies lightheadedness, Denies Loss of Consciousness, Reports dyspnea on exertion and Denies orthopnea Respiratory: Reports dyspnea on exertion Gastrointestinal: Reports no additional gastrointestinal complaints Genitourinary: Reports no additional male genitourinary complaints Skin/Breast: Reports system reviewed and no additional complaints, except as docu Reports weakness Endocrine: Reports fatigue Physical Exam Vital Signs: Last Vital Signs Temp 97.7 F 03/07/24 11:11 Pulse 84 03/07/24 11:11 Resp 18 03/07/24 11:11 BP 114/56 L 03/07/24 11:11 Pulse Ox 96 03/07/24 11:11 O2 Del Method Room Air 03/07/24 11:11 O2 Flow Rate 2 03/05/24 23:01 Oxygen Flow Rate 3 03/05/24 08:10 BMI result Body Mass Index 45.0 GENERAL APPEARANCE: in no acute distress, pleasant. NECK: no carotid bruit, + jugular venous distention. SKIN: no suspicious lesions, warm and dry. HEART: no murmurs, irregular rate and rhythm. LUNGS: clear to auscultation bilaterally. ABDOMEN: soft, nontender. EXTREMITIES: Mild pitting edema. Positive for lymphedema. PERIPHERAL PULSES: equal. NEUROLOGIC: No gross deficits, AAO X 3 Objective Labs and Meds 03/06/24 05:49 03/07/24 06:17 Lab results: Laboratory Results - last 24 hr 03/06/24 03/06/24 03/06/24 15:23 18:11 20:40 Sodium Potassium Chloride Carbon Dioxide Anion Gap BUN Creatinine Estim Creat Clear Calc Estimated GFR POC Glucose 243 H 256 H Random Glucose Calcium Random Vancomycin 13.6 L 03/06/24 03/07/24 03/07/24 21:32 06:17 07:06 Sodium 137 Potassium 3.6 Chloride 99 Carbon Dioxide 30 H Anion Gap 12 BUN 20 H Creatinine 1.01 Estim Creat Clear Calc 88.0 Estimated GFR > 60 POC Glucose 239 H 216 H Random Glucose 236 H Calcium 8.6 Random Vancomycin 03/07/24 10:49 Sodium Potassium Chloride Carbon Dioxide Anion Gap BUN Creatinine Estim Creat Clear Calc Estimated GFR POC Glucose 298 H Random Glucose Calcium Random Vancomycin Progress Note: A&P Assessment and plan (1) Persistent atrial fibrillation: Status: Acute Assessment and Plan: Persistent atrial fibrillation, rate controlled. Duration of atrial fibrillation number appears to be at least couple years. Echocardiogram is pending. I would suggest to continue current rate control which is adequately controlled on metoprolol therapy. Continue full oral anticoagulation with Eliquis. Not sure if he would be a candidate for rhythm control given chronic persistent atrial fibrillation. Will depend on his underlying biatrial enlargement (2) Acute CHF: Status: Acute Assessment and Plan: Heart failure, most likely related to multiple comorbidities including persistent chronic atrial fibrillation, morbid obesity, predominantly right- sided. Continue IV diuresis for few more days. Already on spironolactone therapy tolerating. Add Jardiance 10 mg to his regimen. Will prognosis is guarded. Will sign of the case. Will follow up with him as an outpatient Time Spent With Patient Time: Total time managing care of this patient today ____ minutes. Progress Note: Quality Stroke Does the patient have a stroke diagnosis?: No Procedures Date of Service Date of Service: 03/07/24
--- NOTE | 2024-03-07 12:28 | P.PNIM_ITS ---
Subjective Subjective Date of Service: 03/07/24 Interval History: chf ,bacteremia Review of Systems sob seems improving ? gram positive bacteremia Physical Exam 2 Vital Signs: Vital Signs: Last Vital Signs Temp 97.7 F 03/07/24 11:11 Pulse 84 03/07/24 11:11 Resp 18 03/07/24 11:11 BP 114/56 L 03/07/24 11:11 Pulse Ox 96 03/07/24 11:11 O2 Del Method Room Air 03/07/24 11:11 O2 Flow Rate 2 03/05/24 23:01 Oxygen Flow Rate 3 03/05/24 08:10 BMI result Body Mass Index 45.0 Appearance: Alert.? Oriented X3.?morbid obesity cvs: irregular rythem, [id number] , no murmur res:air entry diminshed ,no wheezing or rales ,respiratory efforts poor. abd: no rebound or guarding ,nt, bs present. ext pulses present , no cyanosis . neuro: axo3 , nonfocal. Objective Data Active Medications Acetaminophen (Acetaminophen 325 Mg Tablet) 650 mg PO Q6H PRN PRN Reason: Pain, Mild 1-3,fever,headache Last Admin: 03/06/24 21:33 Dose: 650 mg Documented By: RUTHANN Albuterol Sulfate (Albuterol Sulfate 90 Mcg 8 Gm Inhaler) 2 puff INHALE Q6H PRN PRN Reason: Shortness Of Breath Or Wheezing Apixaban (Apixaban 5 Mg Tablet) 5 mg PO BID [facility] Last Admin: 03/07/24 08:16 Dose: 5 mg Documented By: FRANKI Atorvastatin Calcium (Atorvastatin Calcium 80 Mg Tablet) 80 mg PO DAILY [facility] Last Admin: 03/07/24 08:16 Dose: 80 mg Documented By: FRANKI Calcium Carbonate (Calcium Carbonate 750 Mg Tab.Chew) 750 mg PO Q4H PRN PRN Reason: Heartburn Docusate Sodium (Docusate Sodium 100 Mg/10 Ml Liquid) 50 mg PO Q6H [facility] Last Admin: 03/07/24 08:39 Dose: Not Given Documented By: FRANKI Non-Admin Reason: Patient Refused Escitalopram Oxalate (Escitalopram Oxalate 10 Mg Tablet) 10 mg PO DAILY [facility] Last Admin: 03/07/24 08:16 Dose: 10 mg Documented By: FRANKI Fluticasone/Umeclidinium/Vilanterol (Fluticasone/Umeclidinium/Vilanterol 100/62.5/25 Blst.W.Dev) 1 puff INHALE RDAILY [facility] Last Admin: 03/07/24 08:27 Dose: 1 puff Documented By: DAVIS Furosemide (Furosemide 40 Mg/4 Ml Vial) 40 mg IVPUSH DAILY [facility]; Protocol Last Admin: 03/07/24 08:17 Dose: 40 mg Documented By: FRANKI Gabapentin (Gabapentin 600 Mg Tablet) 600 mg PO BID [facility] Last Admin: 03/07/24 08:16 Dose: 600 mg Documented By: FRANKI Glucose (Glucose Gel 15 Gm Gel..Gram.) 15 gm PO Q15M PRN; Protocol PRN Reason: per Hypoglycemia Standing Ord. Dextrose (D10) 250 mls @ 750 mls/hr IV Q15M PRN; Protocol PRN Reason: per Hypoglycemia Standing Ord. Vancomycin HCl 1,000 mg/ (Sodium Chloride) 270 mls @ 270 mls/hr IV Q12H [facility] Last Infusion: 03/07/24 11:16 Dose: Infused Documented By: FRANKI Insulin Human Lispro (Insulin Lispro 100 Unit/Ml 3 Ml Vial) 0 unit SUBCUT QIDACHS [facility]; Protocol Last Admin: 03/07/24 11:11 Dose: 6 unit Documented By: FRANKI Losartan Potassium (Losartan Potassium 50 Mg Tablet) 50 mg PO DAILY [facility]; Protocol Last Admin: 03/07/24 08:16 Dose: 50 mg Documented By: FRANKI Magnesium Hydroxide (Milk Of Magnesia 30 Ml Oral.Susp) 30 ml PO DAILY PRN PRN Reason: Constipation Last Admin: 03/06/24 07:55 Dose: 30 ml Documented By: FCO Melatonin (Melatonin 3 Mg Tablet) 6 mg PO BEDTIME PRN PRN Reason: Insomnia Last Admin: 03/06/24 21:33 Dose: 6 mg Documented By: RUTHANN Metoprolol Succinate (Metoprolol Succinate Er 50 Mg Tab.Er.24h) 50 mg PO DAILY [facility]; Protocol Last Admin: 03/07/24 08:38 Dose: 50 mg Documented By: FRANKI Nystatin (Nystatin Powder 15 Gm Bottle) 1 appl TOPICAL BID PRN; Protocol PRN Reason: abdominal rash Omeprazole (Omeprazole 20 Mg Capsule.) 20 mg PO DAILY@0630 [facility] Last Admin: 03/07/24 08:16 Dose: 20 mg Documented By: FRANKI Oxycodone HCl (Oxycodone Hcl Immed Release 5 Mg Tablet) 10 mg PO Q6H PRN PRN Reason: Moderate Pain (Scale Score 5-6) Pharmacy Consult (Consult Rx Vancomycin Dosing) 1 each MISCELLANE DAILY PRN PRN Reason: Consult order Polyethylene Glycol (Polyethylene Glycol 3350 17 Gm Powd.Pack) 17 gm PO DAILY [facility] Last Admin: 03/07/24 08:37 Dose: 17 gm Documented By: FRANKI Sodium Chloride (0.9 % Sodium Chloride Flush 3 Ml Syringe) 3 ml IVFLUSH QSHIFT [facility] Last Admin: 03/07/24 11:15 Dose: 3 ml Documented By: FRANKI Spironolactone (Spironolactone 25 Mg Tablet) 25 mg PO DAILY [facility] Last Admin: 03/07/24 08:16 Dose: 25 mg Documented By: FRANKI Tamsulosin HCl (Tamsulosin Hcl 0.4 Mg Capsule) 0.4 mg PO BEDTIME [facility] Last Admin: 03/06/24 21:33 Dose: 0.4 mg Documented By: RUTHANN Triamcinolone Acetonide (Triamcinolone Acet 0.1 % Cream 15 Gm Tube) 1 appl TOPICAL BID [facility]; Protocol Last Admin: 03/07/24 11:13 Dose: 1 appl Documented By: FRANKI Vitamin D (Cholecalciferol (Vitamin D3) 25 Mcg Tablet) 25 mcg PO DAILY [facility] Last Admin: 03/07/24 08:16 Dose: 25 mcg Documented By: FRANKI Labs 03/06/24 05:49 03/07/24 06:17 Labs: Laboratory Results - last 24 hr 03/06/24 03/06/24 03/06/24 15:23 18:11 20:40 Anion Gap Estim Creat Clear Calc Estimated GFR POC Glucose 243 H 256 H Random Glucose Calcium Random Vancomycin 13.6 L 03/06/24 03/07/24 03/07/24 21:32 06:17 07:06 Anion Gap 12 Estim Creat Clear Calc 88.0 Estimated GFR > 60 POC Glucose 239 H 216 H Random Glucose 236 H Calcium 8.6 Random Vancomycin 03/07/24 10:49 Anion Gap Estim Creat Clear Calc Estimated GFR POC Glucose 298 H Random Glucose Calcium Random Vancomycin Microbiology Microbiology Results: Microbiology 03/05/24 09:03 Blood Culture - Preliminary Blood - Venous No growth after 48 hours. 03/05/24 09:03 Blood Culture - Preliminary Blood - Venous Prelim: GPC Gram Stain only Assessment and Plan (1) Persistent atrial fibrillation: Status: Acute (2) Acute CHF: Status: Acute Plan 79 M PMH morbid obesity, chronic lymphedema with stasis ulcers, hypertension, hyperlipidemia, paroxysmal atrial fibrillation, cauda equina syndrome diagnosed in 06/26/2022 non ambulatory but until recently able to self transfer, chronic low back pain on opiates, diabetes, AGNIESZKA: Patient came to the hospital because of shortness of breath, fever, cough with whitish sputum, also has some edema of the legs, drinking lot of water at home, unsure if he gained any weight, also patient had some upper abdominal pain which seems to be improved. Sirs (fever ,tachycardia,tachypnea,leucocytsosis )-? ? viral syndrome respiratory viral panel negative cta -neg for Pulm embolism , ct abd-negative elevated bnp blood culture / grmapositive cocci vnco trough 13.6 on 03/06. started on iv vanco Id eval-continue vanco(intiated at 03/05)until organism identification. Acute lactic acidosis: Possibly related to albuterol use at home, CHF. Trending down, no need for lactic acid drawn until clinical scenario changes. Acute hypoxemic respiratory failure secondary to Possible CHF exacerbation- etiology unclear Elevated troponin likely due to demand. sob seems improving plan: diuresing well i/o: neg 1.3 liters moniter i/o daily weights lasxi 40 mg iv daily echo added and cardiology eval-continue losartan/sprinolactone /lasix.added jardiance. htn :bp seems stable hold bp meds dm: Diabetic diet, insulin with coverage PAF: hr improving continue metoprolol to 50 mg bid. morbid obesity/chronic lymphedema : encouraged to lose weight and cut down calories. Monitor closely. sleep apnea : night BiPAP Pt eval. ongoing need for hospitlisation-considering CHF exacerbation , ?bacteremia as well as sirs-need IV Lasix, diuresis, blood culture final awaiting. Quality Stroke Does the patient have a stroke diagnosis?: No VTE Prior VTE?: No VTE Risk Level:: Medical - moderate - high VTE Device Contraindication: N/A - Device Ordered VTE Drug Contraindication: N/A - Med Ordered
[2024-03-07 16:20] LABS: Glucose, Whole Blood 336 mg/dL (60-115)
[2024-03-07] MEDS: Melatonin 3 MG TABLET 6 MG PO (19:55)
[2024-03-07] MEDS: Acetaminophen 325 MG TABLET 650 MG PO (19:55)
[2024-03-07] MEDS: Tamsulosin HCL 0.4 MG CAPSULE PO (19:56)
[2024-03-07 20:40] LABS: Glucose, Whole Blood 347 mg/dL (60-115)
[2024-03-07 21:11] LABS: Vancomycin Random 15.7 mcg/mL (15-20)
--- NOTE | 2024-03-07 21:23 | HE.PHANOTE ---
RE: VANCO DOSING Trough came back as 15.7 mg/L. Continue with dose 1000 mg q12h, next trough is scheduled for 03/08/24 @1999.
--- NOTE | 2024-03-07 23:45 | PC.RT ---
pt has refused to wear cpap x 3 nights in a row therefore order will be dc'd per policy
[2024-03-08] VITALS (7 sets, daily range): BP systolic 142–176; BP diastolic 69–80; PULSE 52–78; RESP 16–19; TEMP 36.1–36.7; O2SAT 92–98
[2024-03-08] MEDS: 0.9 % Sodium Chloride Flush 3 ML SYRINGE IVFLUSH ×3 (00:04→16:47)
[2024-03-08 06:50] LABS: Creatinine Clr Calc Pharmacy 92.6; Estimated Glomerular Filt Rate > 60
[2024-03-08 07:30] LABS: Glucose, Whole Blood 278 mg/dL (60-115)
[2024-03-08] MEDS: Empagliflozin 10 MG TABLET PO (08:00)
[2024-03-08] MEDS: Atorvastatin Calcium 80 MG TABLET PO (08:00)
[2024-03-08] MEDS: Apixaban 5 MG TABLET PO (08:00)
[2024-03-08] MEDS: Insulin Lispro 100 UNIT/ML 3 ML VIAL SUBCUT ×3 (08:00→16:47)
[2024-03-08] MEDS: Fluticasone/Umeclidinium/Vilanterol 100/62.5/25 BLST.W.DEV 1 PUFF INHALE (08:00)
[2024-03-08] MEDS: Gabapentin 600 MG TABLET PO (08:00)
[2024-03-08] MEDS: Cholecalciferol (Vitamin D3) 25 MCG TABLET PO (08:00)
[2024-03-08] MEDS: Spironolactone 25 MG TABLET PO (08:00)
[2024-03-08] MEDS: Escitalopram Oxalate 10 MG TABLET PO (08:00)
[2024-03-08] MEDS: Losartan Potassium 50 MG TABLET PO (08:01)
[2024-03-08] MEDS: Furosemide 40 MG TABLET PO (08:01)
[2024-03-08] MEDS: Metoprolol Succinate ER 50 MG TAB.ER.24H PO (08:01)
[2024-03-08] MEDS: vancomycin HCL 1,000 MG in 0.9 % Sodium Chloride 250 ML 270 MG IV (11:13)
[2024-03-08 11:25] LABS: Glucose, Whole Blood 357 mg/dL (60-115)
--- NOTE | 2024-03-08 12:49 | MHC.CM.PN ---
Addendum entered by Diane Willis 03/08/24 13:07: Patient will dc to home today at 6PM, via [facility]; CM spoke with /HCP/Katie(and Patient) at listed #, who is in agreement with the dc plan Original Note: Per MD, Patient will be medically cleared for dc to home today, with services. Patient is active with [facility], who has been notified of today's dc. Last IMM was addressed on 03/06/2024.
--- NOTE | 2024-03-08 13:12 | PM.DS ---
DS: Providers Provider Date of Service: 03/08/24 Date of admission: 03/05/24 18:49 Date of discharge: 03/08/24 Primary care physician: Rufus De Luna MD Consults: 03/05/24 19:14 Consult to Cardiology Routine Consulting Provider: [facility] Reason for consultation: chf excerebation Has provider been notified: No 03/06/24 12:20 Consult to Wound Care Routine Reason for consultation: venous stasis suzanne lower extemities 03/06/24 13:15 Consult to Infectious Diseases Routine Consulting Provider: [facility] Reason for consultation: bacteremia Has provider been notified: No DS: Diagnosis Discharge Diagnosis (1) Persistent atrial fibrillation: Status: Acute (2) Acute CHF: Status: Acute DS: Summary Hospital Course Hospital Course: HPI From admission H&P: 79 M PMH morbid obesity, chronic lymphedema with stasis ulcers, hypertension, hyperlipidemia, paroxysmal atrial fibrillation, cauda equina syndrome diagnosed in 06/26/2022 non ambulatory but until recently able to self transfer, chronic low back pain on opiates, diabetes, AGNIESZKA: Patient came to the hospital because of shortness of breath, fever, cough with whitish sputum, also has some edema of the legs, drinking lot of water at home, unsure if he gained any weight, also patient had some upper abdominal pain which seems to be improved. Patient was short of breath and as per ED was hypoxic 87%, tachycardic, fever of 102.8, tachypnea. Patient also has history of unspecified CHF? as per the he was on oxygen 2 years ago unclear reasons in [place]. He was also on Bumex until last year when his stopped it because he could not tolerate. Denies any recent travel or sick contacts, But had? Congestion versus runny nose as per . Patient denies any gross chest pain or palpitations or dizziness. Lab imaging reviewed: Has WBC count of 16.8, CTA negative, CT abdomen also negative except some question of chronic pancreatitis Lipase normal, BNP is elevated from baseline in 300 range Troponin flat in 100 range EKG shows AFib, no gross ST changes ED: Patient was given Lasix , and ask for admission for possible CHF exacerbation. Hospital Course by discharge diagnosis: 1. Acute hypoxemic respiratory failure due to acute CHF, likely diastolic Patient was diuresed with IV Lasix and had resolution of his oxygen requirements. He has been transitioned to oral Lasix 40 mg daily. He is already on potassium-sparing diuretics which he should continue. Cardiology was consulted and recommended the addition of Jardiance as well which has been prescribed. 2. Sirs with group B strep bacteremia, possibly contaminant but can not rule out true infection Patient presented with SIRS physiology including fevers. He had blood cultures drawn. Initially this was felt to be possible viral syndrome, however his initial blood cultures returned positive with 1/2 bottles showing group B strep. Infectious Disease was consulted and recommended 2 weeks total antibiotics. The need for repeat culture and further evaluation including transesophageal echo was discussed with ID prior to discharge and this was felt not to be necessary. He was treated with IV vancomycin while in the hospital and will be discharged with 11 more days of oral cefuroxime. Source may be skin, given his chronic venous stasis. 3. Paroxysmal AFib Continued on his Eliquis and treated with oral medications. Did have patient will fast rates requiring up titration of his metoprolol from 25 mg to 50 mg. He should continue this increased dose upon discharge. The remainder of patient's chronic conditions were stable in the hospital. The patient was evaluated by Physical therapy prior to discharge and has been deemed appropriate for home with physical therapy. He was already active with [facility] which can be continued with the addition of home PT Time Attestation Discharge Coordination Time (in mins): 40 Quality: Safe Use of Opioids Does Pt have an Active Cancer Diagnosis on the Problem List?: No Quality: Stroke Does the patient have a stroke diagnosis?: No Physical Exam Vital Signs: Vital Signs: Last Vital Signs Temp 97.6 F 03/08/24 11:17 Pulse 73 03/08/24 11:17 Resp 16 03/08/24 11:17 BP 158/76 H 03/08/24 11:17 Pulse Ox 95 03/08/24 11:17 O2 Del Method Room Air 03/08/24 11:17 O2 Flow Rate 2 03/05/24 23:01 Oxygen Flow Rate 3 03/05/24 08:10 BMI result Body Mass Index 45.0 Const: Other: General - no acute distress, appears comfortable Cardiovascular - regular rate and rhythm, S1-S2 Lungs - normal respiratory effort, clear to auscultation bilaterally, no wheezing Abdomen - soft, nontender, no rebound or guarding Extremities - chronic changes b/l LE Neuro - awake and alert, no focal deficits DS: Data Data Completed and Pending Labs on day of discharge: Laboratory Results - last 24 hr 03/07/24 03/07/24 03/07/24 16:17 20:18 20:36 Creatinine Estim Creat Clear Calc Estimated GFR POC Glucose 336 H 347 H Random Vancomycin 15.7 03/08/24 03/08/24 03/08/24 05:57 07:13 11:18 Creatinine 0.96 Estim Creat Clear Calc 92.6 Estimated GFR > 60 POC Glucose 278 H 357 H* Random Vancomycin Preliminary micro results at discharge 03/05/24 09:03 Blood Culture - Preliminary Blood - Venous No growth after 48 hours. Discharge Plan Discharge Anticipated Discharge Date/Time: 03/08/24 18:00 Patient Disposition: Home Health Service Discharge Diagnosis: CHF SIRS Bacteremia Referrals: [facility] [Outside] - 1 Week Rufus De Luna MD [Primary Care Provider] - 1 Week Discharge Medications: New Jardiance 10 mg Tablet 10 mg PO DAILY Qty: 90 0RF furosemide 40 mg Tablet 40 mg PO DAILY Qty: 90 0RF Protocol: Hold for SBP< HOLD for SBP < : 90 cefuroxime axetil 500 mg tablet 500 mg PO Q12H Qty: 22 0RF metoprolol succinate 50 mg Tablet Extended Release 24 Hr 50 mg PO DAILY Qty: 90 0RF Protocol: Hold for SBP/HR < HOLD for SBP < : 90 HOLD for HR < : 60 Continued losartan 50 mg tablet 50 mg PO DAILY atorvastatin 80 mg tablet 80 mg PO DAILY gabapentin 600 mg tablet 600 mg PO BID citalopram 20 mg tablet 20 mg PO DAILY omeprazole 20 mg capsule,delayed release(DR/EC) 20 mg PO DAILY@0630 nystatin 100,000 unit/gram powder 1 appl topical BID PRN (Reason: abdominal rash) eplerenone 50 mg tablet 50 mg PO DAILY oxycodone 10 mg tablet 10 mg PO Q6H PRN (Reason: Moderate Pain (Scale Score 5-6)) Eliquis 5 mg tablet 5 mg PO BID Humulin R U-500 (Conc) Kwikpen 500 unit/mL (3 mL) insulin pen 45 unit subcut DAILY@1730 Trelegy Ellipta 100-62.5-25 mcg blister with device 1 ea inhalation DAILY docusate sodium 50 mg Capsule 50 mg PO Q6H Rx Instructions: With oxycodone cholecalciferol (vitamin D3) 25 mcg (1,000 unit) Tablet 25 mcg PO DAILY triamcinolone acetonide 0.1 % cream 1 appl topical BID tamsulosin 0.4 mg capsule 0.4 mg PO BEDTIME polyethylene glycol 3350 [Miralax] 17 gram/dose Powder 17 g PO DAILY hydroxyzine pamoate 25 mg capsule 25 mg PO TID PRN (Reason: itch) albuterol sulfate 90 mcg/actuation Aerosol Powdr Breath Activated 2 inh INHALATION Q6H PRN (Reason: Shortness Of Breath Or Wheezing) Humulin R U-500 (Conc) Kwikpen 500 unit/mL (3 mL) insulin pen 45 unit subcut DAILY@0900 Discontinued metoprolol succinate 50 mg tablet extended release 24 hr 25 mg PO DAILY Discharge Orders: Discharge Order (Routine); Ordered 03/08/24 Ordered By: Jorje Santillan Diet: Advance to usual diet Activity on Discharge: As tolerated Stand Alone Forms: Patient Portal Discharge page Print Language: Nepali Care Plan Goals: Take 11 more days of antibiotics Start Furosemide 40mg daily Start Jardiance 10mg daily Increase your metoprolol from 25mg daily to 50mg daily. Continue other medications as before. Start physical therapy at home Continue [facility] at home Health Concerns: see d/c summary Plan of Treatment: see d/c summary Assessment: see d/c summary
--- NOTE | 2024-03-08 13:20 | W.MHC.F2F ---
Service Date Service Date: 03/08/24 Encounter Date of encounter: 03/08/24 Reasons for Services Signs and symptoms assessed: Physical Therapy Chronic venous status b/l LE edema requiring on going wound care Reason for long term: wound care Reason for physical therapy: home safety and mobility and therapeutic exercises Overseeing Care: Rufus De Luna Homebound: Leaving the home is medically contraindicated at this time without the asist of a device and/or another person due th the listed conditions above and below. Reason homebound: unsteady gait / fall risk and leg weakness Homebound supporting statement: Pt with chronic LE weakness and unable to safely ambulate distances. Certification: Based on the above findings, I certify that this patient is confined to the home and needs intermittent long term care, physical therapy and/or speech therapy, or continues to need occupational therapy. The patient is under my care, and I have initiated the establishment of the plan of care. The patient will be followed by a physician who will periodically review the plan of care. Time Spent With Patient Time: Total time managing care of this patient today ____ minutes.
[2024-03-08 16:32] LABS: Glucose, Whole Blood 301 mg/dL (60-115)
== END 2024-03-08 19:55 | disposition home health service (06) | DRG 291 ==
LOC: HO.ED 17:48 → HO.EDOVER 18:55 → HO.IMC 03-06 00:19
PROVIDERS: Nurse Practitioner Family; Physician Assistant; Physician Assistant Medical; Admitting Provider Internal Medicine; Emergency Provider Emergency Medicine; PCP Internal Medicine; Visit Provider Family Medicine
DX: I11.0 Hypertensive heart disease with heart failure (principal); I50.33 Acute on chronic diastolic (congestive) heart failure; J96.01 Acute respiratory failure with hypoxia; E87.21 Acute metabolic acidosis; Z68.42 Body mass index [BMI] 45.0-49.9, adult; R78.81 Bacteremia; J44.1 Chronic obstructive pulmonary disease with (acute) exacerbation; I89.0 Lymphedema, not elsewhere classified; B95.1 Streptococcus, group B, as the cause of diseases classified elsewhere; I48.0 Paroxysmal atrial fibrillation; I50.811 Acute right heart failure; E66.01 Morbid (severe) obesity due to excess calories; G47.33 Obstructive sleep apnea (adult) (pediatric); Z71.3 Dietary counseling and surveillance; Z20.822 Contact with and (suspected) exposure to COVID-19; Z79.4 Long term (current) use of insulin; Z79.01 Long term (current) use of anticoagulants; Z79.899 Other long term (current) drug therapy
CPT/HCPCS: 0241U; 36415; 70450; 71275; 74177; 80048; 80053; 80202; 81001; 81003; 82565; 82947; 83605; 83690; 83735; 83880; 84484; 85025; 85027; 85379; 85610; 87040; 87147; 87205; 87633; 93005; 93306; 94640; 97161; 99285; J0131; J0696; J1940; J1956; J2270; J2405; J3370; Q9957; Q9967

== ENCOUNTER → 2024-03-05 08:37 | Outpatient (BNV) | payer MEDICARE, SELFPAY | PROVIDERS: Emergency Provider Emergency Medicine; PCP Internal Medicine; Visit Provider Internal Medicine Cardiovascular Disease | DX: R10.9 Unspecified abdominal pain (principal) | CPT/HCPCS: 93010 ==

== ENCOUNTER → 2024-03-05 10:04 | Outpatient (BNV) | payer MEDICARE, SELFPAY | PROVIDERS: Emergency Provider Emergency Medicine; PCP Internal Medicine; Visit Provider Radiology Diagnostic Radiology | DX: R53.1 Weakness (principal); K83.8 Other specified diseases of biliary tract | CPT/HCPCS: 70450; 71275; 74177 ==

== ENCOUNTER 2024-03-05 18:49 | Outpatient (BNV) | payer MEDICARE, SELFPAY | END 2024-03-07 07:00 | PROVIDERS: Admitting Provider Internal Medicine; Emergency Provider Emergency Medicine; PCP Internal Medicine; Visit Provider Internal Medicine Cardiovascular Disease | DX: I50.9 Heart failure, unspecified (principal) | CPT/HCPCS: 93306 ==

== ENCOUNTER → 2024-03-05 18:49 | Outpatient (BNV) | payer MEDICARE, SELFPAY | PROVIDERS: Admitting Provider Internal Medicine; Emergency Provider Emergency Medicine; PCP Internal Medicine; Visit Provider Internal Medicine Cardiovascular Disease | DX: I48.19 Other persistent atrial fibrillation (principal); I50.9 Heart failure, unspecified | CPT/HCPCS: 99223; 99233 ==

== ENCOUNTER → 2024-03-05 18:49 | Outpatient (BNV) | payer MEDICARE, SELFPAY | PROVIDERS: Admitting Provider Internal Medicine; Emergency Provider Emergency Medicine; PCP Internal Medicine; Visit Provider Internal Medicine | DX: I48.19 Other persistent atrial fibrillation (principal); I50.9 Heart failure, unspecified | CPT/HCPCS: 99239; G0180 ==

== ENCOUNTER → 2024-03-05 18:49 | Outpatient (BNV) | payer MEDICARE, SELFPAY | PROVIDERS: Admitting Provider Internal Medicine; Emergency Provider Emergency Medicine; PCP Internal Medicine; Visit Provider Internal Medicine | DX: A41.9 Sepsis, unspecified organism (principal); J44.9 Chronic obstructive pulmonary disease, unspecified; R78.81 Bacteremia | CPT/HCPCS: 99222 ==

== ENCOUNTER 2024-04-01 04:23 | Inpatient (IN) | payer MEDICARE, SELFPAY ==
[2024-04-01] VITALS (14 sets, daily range): BP systolic 147–185; BP diastolic 64–95; PULSE 73–100; RESP 15–20; TEMP 36.4–39.1; O2SAT 93–98; BMI 62.4
--- NOTE | ~2024-04-01 | US_ITS ---
CLINICAL HISTORY: abdominal pain, fever US abdomen complete Comparison: CT/SR - VASCULAR PE_ABDOMEN_PELVIS (ADULT) - 03/05/24 13:49 EST Findings: The visualized pancreas echogenic which may relate to mild fatty infiltration. Calcification seen on CT not appreciable on ultrasound. No duct dilatation. The visualized aorta and inferior vena cava are normal caliber. Proximal aorta not visualized. Liver enlarged at 19.2 cm in length with mildly increased echotexture. Intrahepatic duct dilatation with dirty echoes appearing to correlate to pneumobilia on CT. The common duct is 6 mm in diameter, although not well visualized. Limited visualization of the gallbladder. Possible adenomyomatosis with small ring down artifact. Possible small stone. No additional features of acute cholecystitis. The main portal vein is antegrade. Both kidneys poorly visualized. Right at approximate 8.2 cm, left at proximally 9.5 cm. No obvious hydronephrosis. Poorly visualized spleen although appears mildly enlarged at 13.3 cm. The spleen is normal. No ascites. IMPRESSION: Technically limited study due to habitus and abundant bowel gas with limited patient mobility. Changes significantly limit the acoustic windows. Enlarged fatty appearing liver. Intrahepatic duct dilatation. Pneumobilia better demonstrated on prior CT. Apparent small stone or localized sludge. Possible mild adenomyomatosis. No additional features for acute cholecystitis. No apparent biliary dilatation. Poorly visualized kidneys and spleen. This document has been electronically signed by: Timothy Ram MD on 04/03/2024 11:28:12
--- NOTE | ~2024-04-01 | MR_ITS ---
CLINICAL HISTORY: r o osteomyelitis MR of the right footwith and without gadolinium Comparison: CR/SR - XR FOOT RT 2V - 04/05/24 16:25 EST Findings: Periarticular osteophyte formation at the 1st metatarsophalangeal joint. Marrow signal enhancement is within normal limits. No fracture or osseous lesion. 1st metatarsophalangeal joint effusion is present. Soft tissues are otherwise within normal limits. IMPRESSION: 1. No evidence of osteomyelitis. 2. 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 This document has been electronically signed by: Nova Biswas MD on 04/06/2024 14:30:26
--- NOTE | ~2024-04-01 | XR_ITS ---
EXAMINATION: XR FOOT, RIGHT CLINICAL INFORMATION: ? osteomyelitis COMPARISON: None available. TECHNIQUE: AP, lateral, and oblique views of the right foot. FINDINGS: There is diffuse osteopenia with loss of first MTP joint space as well as PIP and DIP joint space. No bony erosive changes or loose bodies seen. The ankle mortise and subtalar joints are normal. The soft tissues are normal. No gas visualized in the soft tissues. XR/XR foot RT 2V IMPRESSION: Diffuse osteopenia. No periosteal reaction seen in any of the bones. No gas in the soft tissues either. Electronically signed by: Wilfredo Holliday MD 04/05/2024 04:50 PM EST
--- NOTE | ~2024-04-01 | XR_ITS ---
CLINICAL HISTORY: fever 1 view chest x-ray Comparison: 03/26/2023 Findings: The lungs are clear. Heart size is normal. No acute fracture. IMPRESSION: 1. No acute findings. This document has been electronically signed by: Timothy Melgoza MD on 04/01/2024 05:42:22
--- NOTE | 2024-04-01 04:51 | ECG_ITS ---
Test Reason : FEVER Blood Pressure : */* mmHG Vent. Rate : 89 BPM Atrial Rate : * BPM P-R Int : * ms QRS Dur : 80 ms QT Int : 366 ms P-R-T Axes : * 88 7 degrees QTcB Int : 445 ms Atrial fibrillation Low voltage QRS Cannot rule out Anterior infarct (cited on or before 05-Mar-2024) Abnormal ECG When compared with ECG of 05-Mar-2024 08:45, T wave inversion now evident in Lateral leads Referred By: Matthew Bal Electronically Signed By: ANITA HEREDIA MD
[2024-04-01 05:08] LABS: MANUAL DIFF FLAG NO
--- NOTE | 2024-04-01 05:08 | PC.NURSE ---
Provider Tor was made aware of septic protocol. temp 102.3, bp elevated by ems. Labs drawn, lactic, and cultures being drawn at this time. Provider wants to wait till the lactic comes back due to chf and copd history. pt will receive iv tylenol due to n/v. pt has a 20g to the right ac. dressing to the right lower leg, pt states his blood sugars have been elevated. pt was incont of brown stool on arrival. buttocks redness, lower legs dry, red and left foot toenail came off on arrival.
[2024-04-01 05:10] LABS: Venous Blood Gas Refer to POC result
[2024-04-01 05:10] LABS: VBG Base Excess 2.7 mmol/L; VBG HCO3 28 mmol/L (22-26); VBG pCO2 48 mmHg; VBG pH 7.37 (7.32-7.43); VBG pO2 25 mmHg
[2024-04-01 05:12] LABS: Basophils Absolute Auto 0.1 X10*3/uL (0.0-0.2); Basophils Percent Auto 0.4 % (0-2); Eosinophils Absolute Auto 0.1 X10*3/uL (0.0-0.4); Eosinophils Percent Auto 0.6 % (0-4); Hematocrit 45.8 % (42.0-52.0); Hemoglobin 14.5 g/dl (14.0-18.0); Imm Gran Abs Auto 0.13 X10*3/uL (0.00-0.03); Lymphocytes Absolute Auto 0.9 X10*3/uL (1.2-4.9); Lymphocytes Percent Auto 7.5 % (20-40); Mean Corpuscular HGB Conc 31.7 g/dl (31.0-36.0); Mean Corpuscular Hemoglobin 27.7 pg (27.0-33.0); Mean Corpuscular Volume 87.6 fL (80.0-98.0); Mean Platelet Volume 9.9 fL (9.4-12.4); Monocytes Absolute Auto 0.7 X10*3/uL (0.1-1.2); Monocytes Percent Auto 5.2 % (2-11); Neutrophils Absolute Auto 10.6 x10*3/uL (2.0-8.3); Neutrophils Percent Auto 85.3 % (45-73); Platelet Count 195 X10*3/uL (160-400); Red Blood Count 5.23 X10*6/uL (4.60-5.80); Red Cell Distribution Width 15.9 % (11.0-16.0); White Blood Count 12.5 X10*3/uL (4.8-10.8)
--- NOTE | 2024-04-01 05:21 | MHC.EDTECH ---
Patient was biba from home ,blood drawn including both sets of blood culture drawn from different sites ,and lactic acid ,rsv/covid swab collected all sent to lab ,ekg taken and was read by Provider ,Patient was change into hospital gown ,and hooked up to art framing manager ,vitals taken ,Call reynolds within Pt reach .Plan of care continue .
[2024-04-01] MEDS: Acetaminophen 1,000 MG/100 ML PIGGYBACK 400 MG IV (05:24)
--- OUTSIDE RECORDS SUMMARY | 2024-04-01 05:26 | XMS_ITS | Data Portability ---
Author Organization [employer] [facility], Main Office Address [address], [address] [place] [address] Care Team Providers Care Test Data Developer Name Role Phone DON GARCIA 2ND FLOOR OTHER [phone] RAHUL IRVIN Primary Care Provider Assessment Encounter Date Assessment Date Assessment LastModified by Organization Details LastModified Time 04/27/2023 04/27/2023 falls: 2/12-2/15-2/1 8 Not available 04/27/2023 12:17:15 05/01/2023 05/01/2023 falls: 2/12-2/15-2/1 8 Not available 05/01/2023 07:16:51 05/07/2023 05/07/2023 falls: 2/12-2/15-2/1 8 Not available 05/07/2023 14:09:39 05/12/2023 05/12/2023 falls: 2/12-2/15-2/1 8 Not available 05/12/2023 13:18:25 Plan of Treatment Reminders Order Date Submit Date Provider Last Modified By Organization Details Last Modified Time Details Appointments None record ed. Lab None record ed. Referral None record ed. Procedures None record ed. Surgeries None record ed. Imaging None record ed. Medication Orders None record ed. Patient TargetsNo targets recorded. Patient InstructionsNo instructions recorded. Reason for Referral None Reported. Problems Name Problem SNOMED Code Status Onset Date Resolution Date Notes Provider Name and Address Organization Details Recorded Time Chronic obstructi ve pulmonary disease 63806753 Completed 202204/02/2023 LYNN JONES [address] [facility] [address] [facility], [address], [place], [address] , [facility] 01/25/202 4 11:48:27 Gastroeso phageal reflux disease without esophagit is 878894776 Completed 202204/02/2023 LYNN JONES [address] , [address], [place], [address], [facility] 4 11:48:27 Congestiv e heart failure 54733236 Completed 202204/02/2023 LYNN JONES [address] , [address], [place], [address], [facility] 4 11:52:32 Anxiety disorder 034640703 Completed 202204/02/2023 [facility] [address], [place], [address], [facility] 4 11:48:27 Type 2 diabetes mellitus 75504312 Completed 202204/02/2023 [facility] [address], [place], [address], [facility] 4 11:48:27 Obstructi ve sleep apnea syndrome 95496719 Completed 202204/02/2023 [facility] [address], [place], [address], [facility] 4 11:48:27 Herniatio n of lumbar intervert ebral disc with sciatica 887205344640 105 Completed 202204/02/2023 LYNN JONES [address] , [address], [place], [address], [facility] 4 11:48:27 Essential hypertens ion 09290652 Completed 202204/02/2023 LYNN JONES [address] , [address], [place], [address], [facility] 4 11:52:28 Asthenia 47665628 Completed 202204/02/2023 LYNN JONES [address] , [address], [place], [address], [facility] 4 11:48:27 Hyperlipi demia 19131893 Completed 202204/02/2023 ZACK OLSON, LYNN [address] [facility], [address], [place], [address], [facility] 4 11:52:35 Atrial fibrillat ion 38611058 Completed 202204/02/2023 LYNN JONES [address] [facility], [address], [place], [address], [facility] 4 11:52:30 Acute kidney injury 77978391 Active 2023 LYNN JONES [address] [place] [address], [address], [place], [address], [facility] 4 11:48:36 COVID-19 253475590 Active 2023 LYNN JONES [address] [place] [address], [address], [place], [address], [facility] 4 11:48:44 Pneumonia 807008078 Active 2023 LYNN JONES [address] [facility], [address], [place], [address], [facility] 4 11:48:50 Cauda equina syndrome 152570013 Active 2023 LYNN JONES [address] [facility], [address], [place], [address], [facility] 4 11:50:02 Diabetes mellitus 44315411 Active 2023 ZACK OLSON, BROODMARE FOREMAN [address] [facility], [address], [place], [address], [facility] 4 11:50:12 Chronic back pain 667947066 Active 2023 LYNN JONES [address], [address], [place], [address], [facility] 4 11:50:26 Wound of skin 614544342 Active 2023 ZACKANTELMO OLSON, [address], [address], [place], [address], [facility] 4 11:51:24 Essential hypertens ion 72980680 Active 2023 ZACKANTELMO OLSON, [address], [address], [place], [address], [facility] 4 11:52:27 Atrial fibrillat ion 05999263 Active 2023 ZACKANTELMO OLSON, [address], [address], [place], [address], [facility] 4 11:52:30 Congestiv e heart failure 12596541 Active 2023 ZACK OLSON, [address], [address], [place], [address], [facility] 4 11:52:32 Hyperlipi demia 05039502 Active 2023 ZACK OLSON, [address], [address], [place], [address], [facility] 4 11:52:35 Depressiv e disorder 23721440 Active 2023 ZACK OLSON, [address], [address], [place], [address], [facility] 4 11:59:22 Gastroeso phageal reflux disease 415029264 Active 2023 ZACK OLSON [address], [address], [place], [address], [facility] 4 12:00:11 Blister of foot 891318818 Active 2023 ZACK OLSON, [address], [address], [place], [address], [facility] 4 11:36:56 Fall Active 2023 Janell Benavidez -Kierkla [address] [place] [address], [address], [place], [address], [place] [facility] 4 09:33:49 Constipat ion 02966495 Active 2023 Janell Cheney [address] [facility], [address], [place], [address], [employer] 4 12:14:16 Problem Notes None recorded. Medical Equipment None Reported. Allergies No known drug allergies Medications Name Sig Start Date Stop Date Status Note LastModified by Organization Details LastModified Time oxycodone 15 mg tablet Take 1 tablet every 6 hours by oral route as needed. 024 active Not Available Not Available Not Avai lable oxycodone 10 mg tablet Take 1 tablet every 4 hours by oral route as needed. active Not Available Not Available Not Avai lable Vitals Date Recorded Body height Body mass index (BMI) Body weight Heart rate Respiratory rate Body temperature Oxygen saturation Oxygen saturation in Arterial blood by Pulse oximetry Systolic blood pressure Diastolic blood pressure Provider Name and Address Organization Details Last Updated DateTime 4 172.72 cm 47.7 kg/m2 190524 g 68 /min 18 /min 97.2 [degF] 97 % 97 % 132 mm[Hg] 72 mm[Hg] Janell Cheney [address] [facility], [address], [place], [address], [facility] 4 09:23:55 Date Recorded Body height Provider Name an d Address Organization Details Last Updated DateTime 05/01/2023 172.72 cm LYNN JONES [address] [facility], [address], [place], [address], [employer] 05/01/2023 07:16:22 Date Recorded Body height Respiratory rate Body temperature Heart rate Systolic blood pressure Diastolic blood pressure Provider Name and Address Organization Details Last Updated DateTime 4 172.72 cm 18 /min 98.4 [degF] 18 /min 120 mm[Hg] 68 mm[Hg] LYNN JONES [address] [facility], [address], [place], [address], [facility] 4 13:17:34 Social History Question Answer Notes LastModified by Organizat ion Details LastModified Time Tobacco Smoking Status Never Smoker JOSE NANCE, BERNIE [address] [facility], [address], [place], [address], [facility] 06/25/2022 11:53:16 Do You Have An Advance Directive? Yes Information not available 06/30/2022 What Is Your Level Of Alcohol Consumption? None Information not available 06/25/2022 What Is Your Level Of Caffeine Consumption? Occasional Information not available 04/02/2023 What Is Your Code Status? DNR/DNI And DNH Information not available 04/14/2023 Where Do You Live? Apartment With Information not available 04/14/2023 Legal Guardian? 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 Yes Information not available 04/14/2023 What Was The Date Of Your Most Recent Tobacco Screening? 04/02/2023 Information not available 04/14/2023 Do You Have An Out Of Hospital DNR? Yes Information not available 04/02/2023 What Is Your Relationship Status? Information not available 04/14/2023 Do You Use Any Illicit Or Recreational Drugs? No Information not available 06/25/2022 Has Tobacco Cessation Counseling Been Provided? No N/a As Pt Is Non-smoke r Information not available 04/14/2023 Do You Or Have You Ever Used Any Other Forms Of Tobacco Or Nicotine? No Information not available 04/02/2023 Sex: Unknown Functional Status None recorded. Mental Status None recorded. Family History Nothing Reported Notes:N/C Medical History No medical history recorded. Immunizations Vaccine Type Date Status Note Provider Nam e and Address Organization Details Recorded Time SARS-COV-2 (COVID-19) vaccine, UNSPECIFIED 02/13/2022 [facility] 14:08:03 SARS-COV-2 (COVID-19) vaccine, UNSPECIFIED 06/25/2021 [facility] 14:08:11 SARS-COV-2 (COVID-19) vaccine, UNSPECIFIED 07/11/2020 [facility] 14:08:22 SARS-COV-2 (COVID-19) vaccine, UNSPECIFIED 06/19/2020 [facility] 14:08:30 Past Encounters Encounter ID Performer Location Encounter Start Date Encounter Closed Date Diagnosis/Indication Diagnosis SNOMED-CT Code Diagnosis ICD10 Code Diagnosis Note [id number] BERNIE BELLAMY [address] [place] [address] 06/25/2022 11:09:55 06/27/2022 15:56:22 Herniation of lumbar intervertebral disc with sciatica 7906488302 00239 M51.16 oxycodone 5 mg q4 hr prntizanad ine 2 mg q8hr prnPT OT eval and treat Type 2 kamryn betes mellitus 44496013 E11.9 glargine 60 units am, 20 units pmlispro sliding scalemonit or glucose Gastroesop hageal reflux disease without esophagitis 888676122 K21.9 omeprazole 20 mg daily Essential hypertension 72113448 I10 toprol er 25 mg dailylosar leal 50 mg dailymonit or bp Congestive heart failure 79326760 I50.9 bumex 1 mg dailyepler enone 50 mg daily Chronic ob structive pulmonary disease 24067552 J44.9 albuterol inhlaer q6hr prntrelegy 100/62.5/2 5 daily Anxiety disorder 0098056 06 F41.9 citalopram 20 mg dailyativa n 0.25 mg q6hr prn to 06/27gabape ntin 600 mg qod hs Asthenia 90849262 R53.1 PT OT eval and treatfall precaution sfrequent safety checks Obstructiv e sleep apnea syndrome 69756513 G47.33 CPAP?pu lmonolgy consult Hyperlipidemia 12438000 E78.5 atorvastat in 80 mg daily Atrial fibrillation 4943 6004 I48.91 toprol 25 mg dailyeliqu is 5 mg bidmonitor heart rate [id number] MD DON Mcqueen [address] [place] [address] [place] [address] 06/27/2022 08:27:07 07/01/2022 15:27:06 Herniation of lumbar intervertebral disc with sciatica 5303889122 06577 M51.16 see HPIMRI positive for lumbar spinal stenosis with herniation and cauda equinaPati ent was eval by neurosurge ry however no surgical interventi on was recommende d at that time with rec for rehabPT OT eval and treatfollo w neurosurge ry recs and update with concerns Type 2 kamryn betes mellitus 02712728 E11.9 uncontroll ed dm with rqc7q=07.6 follow endocrine recsmonito r blood glucose and need to titrate Gastroesop hageal reflux disease without esophagitis 874847387 K21.9 omeprazole 20 mg qdmonitor for sx relief Essential hypertension 53214799 I10 metoprolol 25 mg qdlosartan 50 mg qdmonitor bp and need to titrate Congestive heart failure 19704727 I50.22 monitor weights and need to adjust diuretic Chronic ob structive pulmonary disease 57453270 J41.1 continue out patient medsmonito r respirator y statuspulm onary consult prn Asthenia 97765315 R53.1 recurrent fall with global astheniaPT OT Eval and treatmonit or fall risk Hyperlipidemia 18848625 E78.2 lipitor 80 mg qdcontinue d Atrial fibrillation 4943 6004 I48.91 metoprolol 25 mg qdeliquis 5 mg bidmonitor for rate control Morbid obesity 324400602 E66.01 dietary to eval Acute cystitis 86499311 N30.00 complete augment courseadd probioticm onitor to resolution [id number] BERNIE BELLAMY [address] [place] [address] [place] [address] 06/30/2022 13:02:38 07/03/2022 15:57:53 Herniation of lumbar intervertebral disc with sciatica 5997402872 71385 M51.16 oxycodone 5 mg q4 hr prntizanad ine 2 mg q8hr prnlidocai ne patch dailyPT OT eval and treat Chronic ob structive pulmonary disease 74329274 J41.1 albuterol inhlaer q6hr prntrelegy 100/62.5/2 5 dailypulmo nary consult prn [id number] JOSE GRIPPIN, CNC MACHINE OPERATOR [address] [address] 07/04/2022 12:06:07 07/09/2022 15:06:28 Herniation of lumbar intervertebral disc with sciatica 2779977204 83848 M51.16 oxycodone 5 mg q4 hr prntizanad ine 2 mg q8hr prnlidocai ne patch dailyPT OT eval and treat Chronic ob structive pulmonary disease 35615863 J41.1 albuterol inhlaer q6hr prntrelegy 100/62.5/2 5 dailypulmo nary consult prn [id number] JOSE NANCE NP [address] [address] 07/07/2022 12:54:25 07/09/2022 15:22:38 Herniation of lumbar intervertebral disc with sciatica 8014526412 75426 M51.16 oxycodone 5 mg q4 hr prntizanad ine 2 mg q8hr prnlidocai ne patch dailyPT OT eval and treat [id number] JOSE NANCE NP [address] [address] 07/11/2022 11:32:21 07/16/2022 16:51:31 Herniation of lumbar intervertebral disc with sciatica 0878444425 44125 M51.16 oxycodone 5 mg q6 hr prntizanad ine 2 mg q8hr prnlidocai ne patch dailyPT OT eval and treat Type 2 kamryn betes mellitus 25147394 E11.9 glargine 60 units am, 20 units pmlispro sliding scalemonit or glucose Gastroesop hageal reflux disease without esophagitis 744580586 K21.9 omeprazole 20 mg daily Essential hypertension 67912211 I10 toprol er 25 mg dailylosar leal 50 mg dailymonit or bp Congestive heart failure 60463613 I50.9 bumex 1 mg dailyepler enone 50 mg daily Chronic ob structive pulmonary disease 88493303 J44.9 albuterol inhlaer q6hr prntrelegy 100/62.5/2 5 daily Anxiety disorder 8567073 06 F41.9 citalopram 20 mg dailyativa n 0.25 mg q6hr prn to 06/27gabape ntin 600 mg qod hs Asthenia 53751538 R53.1 PT OT eval and treatfall precaution sfrequent safety checks Obstructiv e sleep apnea syndrome 70146501 G47.33 CPAP?pu lmonolgy consult Hyperlipidemia 66495324 E78.5 atorvastat in 80 mg daily Atrial fibrillation 4943 6004 I48.91 toprol 25 mg dailyeliqu is 5 mg bidmonitor heart rate [id number] LYNN JONES [address] [facility] [place] [address] 04/01/2023 08:14:57 04/03/2023 10:18:11 Congestive heart failure 90726115 I50.9 eplerenone 50 mg daily Essential hypertension 15562254 I10 HTN in ED 177/70losa rtan 50 mg dailymetop rolol succ ER 50 mg dailyepler enone 50 mg daily Atrial fibrillation 4943 6004 I48.91 metoprolol succ ER 50 mg dailyeliqu is 5 mg BIDmonitor for brusing and bleeding in excess. Hyperlipidemia 24229995 E78.5 atorvastat in 80 mg daily COVID-19 234724040 U07.1 dx 1 week prior to hospitaliz ation on 03/31/23pre sented to acute with SOB, cough and weakness- tested + covidCXR + infiltrate s- Pneumonia 290791674 J18. 9 TX with albuterol and ceftriaxon e and azithromyc in,supplem ental O2(weaned off prior to d/c) in acute care.disch arge on ceftin 500 mg daily for 10 days. Acute kidney injury 1466 9001 N17.9 Depressive disorder 3548 9007 F32.A citalopram 20 mg dailymonit or for mood and behavior changes.ps ych eval/prn Gastroesop hageal reflux disease 489381496 K21.9 omeprazole 20 mg dailymonit or for GI upset. Chronic back pain 586873 002 M54.9 gabapentin 600 mg BIDcyclobe nzaprine 5 mg BID prnoxycodo ne 10 mg Q 6 hourscolac e 100 mg daily Q6 for chronic opioid use. Diabetes mellitus 458234 09 E11.9 humulin insulin 45 units BIDMonitor FS tid and HSMonitor for signs and symptoms hypoglycem ia/hypergl ycemiaCCHO diet Chronic ob structive pulmonary disease 78556924 J44.9 ellipta 100-62.5-2 5 mcg 1 puff dailymonit or for resp distressOx ygen prn/ titrate to keep sats greater than 92% Vitamin D deficiency 347 36378 E55.9 cholecalci ferol 25 mcg po dailymonit or labs prn [id number] MD DON Ashford RADHA [address] [place] [address] [place] [address] 04/02/2023 18:10:40 04/15/2023 12:04:33 COVID-19 730421373 U07.1 Tested + on 03/20Now recovered. Monitor for sequelae. Pneumonia 049570860 J15. 8 Completed azithromyc in and ceftriaxon e inpt, then transition ed to cefuroxime 500 BID until 04/11 to complete an additional 10 days.Use supplement al O2 prn for sats <90% (was weaned off inpt.)Michaela tor resp status. Acute kidney injury 1466 9001 N17.8 Mild PEPE on admission, resolved after IV fluids.Mon itor labs. Congestive heart failure 65393414 I50.22 Appears euvolemic. Monitor resp. status, fluid status, wts and labs. Essential hypertension 54999966 I10 SBP has been elevated since here, with low nl DBP.Will not make any changes for now.Contin ue losartan 50 mg qd, metoprolol ER 50 mg qd, and eplerenone 50 mg qd/Monitor BP and labs. Atrial fibrillation 4943 6004 I48.0 Rate in good control on meds as above.Cont inue eliquis 5 mg BID for AC.Monitor HR and bleeding risk. Hyperlipidemia 67279999 E78.49 Continue atorvastat in 80 mg qdMonitor labs as outpt. Depressive disorder 3548 9007 F33.8 Mood down a little.Con tinue citalopram 20 mg qdMonitor mood.Consu lt psych prn Gastroesop hageal reflux disease 535714370 K21.9 No current sxs.Contin ue omeprazole 20 mg qdMonitor for sxs Chronic back pain 389480 002 M54.9 With chronic pain, no new sxs.Contin ue gabapentin 600 mg BID, cyclobenza anny 5 mg BID prn, and oxycodone 10 mg q 6 hrs.Contin ue colace 100 mg q 6 hrs to prevent constipati on from chronic opioid use.PT/OT as above.Michaela tor sxs. Diabetes mellitus 238187 09 E11.9 On Humulin-R 45 U BIDUnclear why he isn't on any long acting insulin.Mo nitor fingerstic ks BID and HgA1C as outpt. Chronic ob structive pulmonary disease 48910281 J43.8 Almost back to baseline.C ontinue Trelegy ellipta 100-62.5-2 5 mcg 1 puff dailyNot on rescue inhaler/ne bUse supplement al O2 prn for sats <90%Monito r resp status. Vitamin D deficiency 347 47939 E56.8 Continue cholecalci ferol 25 mcg qdMonitor labs prn [id number] LYNN JONES [address] [place] [address] 04/07/2023 07:42:36 04/15/2023 08:06:50 COVID-19 770568360 U07.1 dx 1 week prior to hospitaliz ation on 03/31/23pre sented to acute with SOB, cough and weakness- tested + covidCXR + infiltrate s- Pneumonia 412316747 J18. 9 TX with albuterol and ceftriaxon e and azithromyc in,supplem ental O2(weaned off prior to d/c) in acute care.disch arge on ceftin 500 mg daily for 10 days. Congestive heart failure 67576664 I50.9 eplerenone 50 mg daily Essential hypertension 57958626 I10 losartan 50 mg dailymetop rolol succ ER 50 mg dailyepler enone 50 mg daily Atrial fibrillation 4943 6004 I48.91 metoprolol succ ER 50 mg dailyeliqu is 5 mg BIDmonitor for bruising and bleeding in excess. Hyperlipidemia 64095281 E78.5 atorvastat in 80 mg daily Depressive disorder 6290 9007 F32.A mood is stablecita lopram 20 mg dailymonit or for mood and behavior changes.ps ych eval/prn Gastroesop hageal reflux disease 902924290 K21.9 omeprazole 20 mg dailymonit or for GI upset. Chronic back pain 402336 002 M54.9 gabapentin 600 mg BIDcyclobe nzaprine 5 mg BID prnoxycodo ne 10 mg Q 6 hourscolac e 100 mg daily Q6 for chronic opioid use. Diabetes mellitus 408549 09 E11.9 humulin insulin 45 units BIDMonitor FS tid and HSMonitor for signs and symptoms hypoglycem ia/hypergl ycemiaCCHO diet Chronic ob structive pulmonary disease 78269457 J44.9 trelegy ellipta 100-62.5-2 5 mcg 1 puff dailymonit or for resp distressOx ygen prn/ titrate to keep sats greater than 92% [id number] LYNN JONES [address] [address] 04/13/2023 11:43:19 04/15/2023 15:00:46 COVID-19 848024700 U07.1 post covid fatigued discussed. dx 1 week prior to hospitaliz ation on 03/31/23pre sented to acute with SOB, cough and weakness- tested + covidCXR + infiltrate s- Chronic back pain 363054 002 M54.9 see hpigabapen tin 600 mg BIDcyclobe nzaprine 5 mg BID prn- changed to 10 mg and scheduled BID; was not being utilized.o xycodone 10 mg Q 6 hourscolac e 100 mg daily Q6 for chronic opioid use.PT has prn muscle relaxers that will be scheduled, weight loss discussed ; will refer to corporate strategy associate for nutritiona l counseling for weight loss .04/13/23: lidocaine patch added [id number] LYNN JONES [address] [address] 04/16/2023 11:33:03 04/21/2023 15:49:46 COVID-19 323576468 U07.1 post covid fatigued discussed. dx 1 week prior to hospitaliz ation on 03/31/23pre sented to acute with SOB, cough and weakness- tested + covidCXR + infiltrate s- Chronic back pain 708041 002 M54.9 increasing back pain- reports fall, although there is no reported fall or notes by nursing. Pt states knees giving out, falling over onto knees and assisted off floor with mechanical lift.xray lumbar spine 3 views ordered gabapentin 600 mg BIDcyclobe nzaprine 5 mg BID prn- changed to 10 mg and scheduled BID; was not being utilized.o xycodone 10 mg Q 6 hourscolac e 100 mg daily Q6 for chronic opioid use. increased to BIDPT has prn muscle relaxers that will be scheduled, weight loss discussed ; will refer to corporate strategy associate for nutritiona l counseling for weight loss .04/13/23: lidocaine patch added [id number] LYNN JONES RADHA [address] [place] [address] 04/22/2023 07:49:00 04/23/2023 19:42:10 Blister of foot 320188730 S90.822A 2 small blood filled blisters on right 2nd and 3rd toe on left foot suspected from previous fall. pt had a unwitnesse d, unreported fall possibly last week per patient.Ap ply skin protectant may apply protective dressing for comfort.Av oid wear tight fitting shoesmonit or for s/sx of infection Fall W19.XXXA unwitnesse d fall on 04/20/23ima ging from [facility] visit negative for any fracturesM RI pending-ap pt in 04/23/23 scheduledc ontinue lidocaine patches to backcontin ue oxycodone 10 mg changed to q 4 from q6. [id number] Janell OCHOA RADHA [address] [place] [address] 04/24/2023 09:08:50 05/05/2023 10:03:37 Chronic back pain 761010552 M54.9 script for oxycodone 10mg q4 hours #45 given to nursingcon tinue gabapentin 600mg BIDcontinu e cyclobenza anny 10mg BID back spasm Essential hypertension 45885840 I10 132/72chro yang stablecont inue metoprolol and losartan Diabetes mellitus 100070 09 E11.9 POC this am 131last evening humulin 500units per ml 45units held for low POCcontinu e to check POC BID prior to insulinmon itor, if needed will adjust insulin. Atrial fibrillation 4943 6004 I48.0 HR 68rate controlled continue eliquischr onic, stable Gastroesop hageal reflux disease 981494966 K21.9 no complaints continue prilosec 20mg daily Depressive disorder 3548 9007 F33.8 chronic stablecont inue citalopram Fall R29.6 slid out of wheelchair yesterday. bruise on kneefall precaution s Constipation 95672252 K5 9.00 to receive MOM or enema. difficulty having BM todayensur e pt receives colace q 6 hoursconti nue miralaxmon itor [id number] LYNN JONES [address] [address] 04/27/2023 12:08:16 04/28/2023 15:43:41 Fall R29.6 MRI pending-ap pt on 04/23/23 reschedule d for today-cont inue lidocaine patches to backcontin ue oxycodone 10 mg changed to q 4 from q6. Chronic back pain 162508 002 M54.9 frequent falls 3 within 8 days.MRI scheduled for 04/27/23 lidocaine patchgabap entin 600 mg BIDcyclobe nzaprine 5 mg BID prn- changed to 10 mg and scheduled BID; was not being utilized.o xycodone 10 mg Q 6 hourscolac e 100 mg daily Q6 for chronic opioid use. increased to BIDPT has prn muscle relaxers that will be scheduled, weight loss discussed ; will refer to corporate strategy associate for nutritiona l counseling for weight loss . [id number] LYNN JONES [address] [address] 05/01/2023 06:53:02 05/05/2023 11:01:52 Fall R29.6 MRI pending-ap pt on 04/23/23 reschedule d for today-cont inue lidocaine patches to backcontin ue oxycodone 10 mg changed to q 4 from q6. Chronic back pain [id number] M54.9 frequent falls 3 within 8 days.MRI completed on 04/30 awaiting results. lidocaine patchgabap entin 600 mg BIDcyclobe nzaprine 5 mg BID prn- changed to 10 mg and scheduled BID; was not being utilized.o xycodone 10 mg Q 6 hourscolac e 100 mg daily Q6 for chronic opioid use. increased to BIDPT has prn muscle relaxers that will be scheduled, weight loss discussed ; will refer to corporate strategy associate for nutritiona l counseling for weight loss . Congestive heart failure [id number] I50.22 eplerenone 50 mg dailyconti nue to monitor weight, sob. edema. [id number] LYNN JONES [address] [address] 05/07/2023 11:13:36 05/12/2023 10:53:33 Chronic back pain [id number] M54.9 see hpilidocai ne patchgabap entin 600 mg BIDcyclobe nzaprine 5 mg BID prn- changed to 10 mg and scheduled BID; was not being utilized.o xycodone 10 mg Q 6 hours increased to 15 mg to better control pain.colac e 100 mg daily Q6 for chronic opioid use. increased to BIDPT has prn muscle relaxers that will be scheduled, weight loss discussed ; will refer to corporate strategy associate for nutritiona l counseling for weight loss . Congestive heart failure [id number] I50.22 eplerenone 50 mg dailyconti nue to monitor weight, sob. edema. [id number] LYNN JONES [address] [address] 05/12/2023 13:16:15 05/14/2023 11:51:11 Chronic back pain [id number] M54.9 lidocaine patchgabap entin 600 mg BIDcyclobe [id number] mg and scheduled BIDoxycodo ne Q 6 hours 15 mg to better control pain.colac e 100 mg daily Q6 for chronic opioid use. increased to BID . Congestive heart failure [id number] I50.22 eplerenone 50 mg dailyconti nue to monitor weight, sob. edema. Acute kidney injury 1466 9001 N17.8 resolved Atrial fibrillation 4943 6004 I48.0 metoprolol succ ER 50 mg dailyeliqu is 5 mg BIDmonitor for bruising and bleeding in excess. Cauda equina syndrome 19 [id number] G83.4 see hpifollow up with neurologyc ontinue dexamethas one 2 mg dailymonit or FS as previously . Blister of foot [id number] 3 S90.822A 2 small blood filled blisters on right 2nd and 3rd toe on left foot suspected from previous fall. pt had a unwitnesse d, unreported fall possibly last week per patient.Ap ply skin protectant may apply protective dressing for comfort.Av oid wear tight fitting shoesmonit or for s/sx of infection Constipation [id number] K5 9.00 colace 100 mg daily COVID-19 [id number] U07.1 resolved Depressive disorder 3548 9007 F33.8 citalopram 20 mg daily Diabetes mellitus 608288 09 E11.9 humulin insulin 45 units BIDMonitor FS tid and HSMonitor for signs and symptoms hypoglycem ia/hypergl ycemia Essential hypertension 61598638 I10 losartan 50 mg dailymetop rolol succ ER 50 mg dailyepler enone 50 mg daily Gastroesop hageal reflux disease 605671210 K21.9 omeprazole 20 mg dailymonit or for GI upset. Hyperlipidemia 44349183 E78.49 atorvastat in 80 mg daily Pneumonia [id number] J15. 8 resolved Health Concerns Section Related Observation LastModified by Organization Detai ls LastModified Time None Recorded Concern Status LastModified by Organization Details LastModified Time None Recorded Advance Directives Directive Y: Payers Encounter Date Sequence Insurance Name Policy Number Policy Cardona Covered Member ID Cardona Member ID Guarantor Name 04/24/2023 1 [place] [employer] Sam Meier [id number] Sam Meier 04/24/2023 2 [place] [id number] Sam Meier [id number] Sam Meier 04/27/2023 1 [place] [employer] Sam Meier [id number] Sam Meier 04/27/2023 2 [place] [id number] Sam Meier [id number] Sam Meier 05/01/2023 1 [place] [employer] Sam Meier [id number] Sam Meier 05/01/2023 2 [place] [id number] Sam Meier [id number] Sam Meier 05/07/2023 1 [place] [employer] Sam Meier [id number] Sam Meier 05/07/2023 2 [place] [id number] Sam Meier [id number] Sam Meier 05/12/2023 1 [place] [employer] Sam Meier [id number] 4 Sam Meier 05/12/2023 2 [place] [id number] Sam Meier [id number] Sam Meier Notes Date Note Type Note Provider Name and Address Organization Details Recorded Time 04/24/2023 text/html 78 year old male seen today for routine rounding. sitting on toilet complains he is trying to pass a bowling ball . recently oxycodone increased to q 4 hours. unsure he was still getting colace q 6hours. nurse aware. will give MOM or enema. otherwise no complaints states his pain is a 6. typically back pain is 4-7 range. Janell dash [address] [facility], [address], [place], [address], [facility] 04/24/2023 12:16:31 04/27/2023 text/html Patient seen tocharlie gonzalez for acute rounding visit s/p fall with right hip pain on 04/26/23 Imaging completed on 04/27/23 and is negative for any acute process. PMH significant for morbid obesity ,recurrent falls. a fib , copd , htn , OSAHF unspecified, HTN, HLD, paroxysmal AFib on Eliquis, cauda equina syndrome (June 2022), chronic lower back pain on chronic opioids, and insulin-dependent diabetes type 2 1 YLNN JONES [address] [facility], [address], [place], [address], [facility] 04/27/2023 12:20:07 05/01/2023 text/html Patient is 78 yr old male with PMH significant for morbid obesity ,recurrent falls. a fib , copd , htn , AGNIESZKA HF unspecified, HTN, HLD, paroxysmal AFib on Eliquis, cauda equina syndrome (June 2022), chronic lower back pain on chronic opioids, and insulin-dependent diabetes type 2 1Admitted to [facility] for rehab after hospitalization for medical management of PEPE, CAP and generalized weakness in the setting of Covid infection. Patient seen today for acute rounding visit.-Currently stable, no new falls reported, pt had MRI on 04/29/23 results pending.-there is no acute nursing concerns. LYNN JONES [address] [facility], [address], [place], [address], [employer] 05/07/2023 14:08:47 05/07/2023 text/html Patient is 78 yr old male with PMH significant for morbid obesity ,recurrent falls. a fib , copd , htn , AGNIESZKA HF unspecified, HTN, HLD, paroxysmal AFib on Eliquis, cauda equina syndrome (June 2022), chronic lower back pain on chronic opioids, and insulin-dependent diabetes type 2 1Admitted to [facility] for rehab after hospitalization for medical management of PEPE, CAP and generalized weakness in the setting of Covid infection. Patient seen today for acute rounding visit.-He is stable, there is no nursing concerns.-Pt had neurology appt on 05/06/23 and was sent to ED based on results which were concerning for L4-L5 bulging disc with superimposed large central extrusion which was increased compared to prior study.-He returned later in the same day with no new recommendation, he is referred to follow up in 1-2 weeks with [facility] neurosurgery. LYNN JONES [address] [facility], [address], [place], [address], [employer] [facility] 05/07/2023 14:19:05 05/12/2023 text/html Patient is 78 yr old male with PMH significant for morbid obesity ,recurrent falls. a fib , copd , htn , AGNIESZKA HF unspecified, HTN, HLD, paroxysmal AFib on Eliquis, cauda equina syndrome (June 2022), chronic lower back pain on chronic opioids, and insulin-dependent diabetes type 2 1Admitted to [facility] for rehab after hospitalization for medical management of PEPE, CAP and generalized weakness in the setting of Covid infection.Pt had neurology appt on 05/06/23 and was sent to ED based on results which were concerning for L4-L5 bulging disc with superimposed large central extrusion which was increased compared to prior study. He returned later in the same day with no new recommendation, he is referred to follow up in 1-2 weeks with [facility] neurosurgery. Patient is seen today for discharge. He is stable and can be discharge with medications, PT/OT and VNA services. He is encouraged to follow up with PCP and Neurology as advised. LYNN JONES [address] [place] [address], [address], [place], [address], [facility] 05/12/2023 13:25:06
[2024-04-01 05:33] LABS: B Type Natriuretic Peptide 238 pg/mL (<100)
[2024-04-01 05:38] LABS: Lactic Acid 2.4 mmol/L (0.5-2.0)
[2024-04-01 05:42] LABS: Alanine Aminotransferase 16 U/L (0-40); Albumin Level 3.5 g/dL (3.5-5.0); Alkaline Phosphatase 130 U/L (39-117); Anion Gap 16 (12-20); Aspartate Amino Transferase 28 U/L (5-37); Bilirubin Direct 0.5 mg/dL (0.0-0.5); Bilirubin Total 1.1 mg/dL (0.0-1.0); Blood Urea Nitrogen 15 mg/dL (9-16); C Reactive Protein 1.06 mg/dL (< or = 0.50); Calcium 9.2 mg/dL (8.4-10.2); Carbon Dioxide 25 mmol/L (22-29); Chloride 102 mmol/L (96-108); Creatinine Clr Calc Pharmacy 61.6; Estimated Glomerular Filt Rate 59; Glucose Random 243 mg/dL (60-115); Lipase 7 U/L (8-78); Magnesium 1.9 mg/dL (1.6-2.6); Potassium 4.6 mmol/L (3.3-5.1); Sodium 138 mmol/L (135-145); Total Protein 7.9 g/dL (6.5-8.0)
--- NOTE | 2024-04-01 05:42 | PC.NURSE ---
provider make aware of lab values, lactic 2.4, bnp 238 and wbc 12.5
--- NOTE | 2024-04-01 05:48 | PC.NURSE ---
pt had a fall while using to portable toilet 6 weeks ago, no loc, pt is on eliquist bid. no treatment for the fall.
--- NOTE | 2024-04-01 05:49 | ED_ITS ---
HPI - General Adult General Chief complaint: Nausea/Vomiting/Diarrhea Stated complaint: Gen Malaise Vomiting, 2 pain for AB Time Seen by Provider: 04/01/24 05:48 History of Present Illness ED Provider: Mally ROME narrative: Patient is an 79-year-old male who lives at home with his . He is quite chronically ill. He was hospitalized at this hospital last month from March 05 to March 08. During that hospitalization he was found to have new onset congestive heart failure. He is also was possibly bacteremic with 1 blood culture bottle positive for group B strep. He was discharged on March 08 2 complete an additional 11 days of cefuroxime. The patient was apparently diagnosed with congestive heart failure during that hospitalization and this was apparently a new diagnosis. Patient previously has had a history of atrial fibrillation and COPD. The patient has a chronic wound on his right lower leg. The wound is frequently dressed by visiting nurses from [facility]. The patient was apparently doing fairly well yesterday but during the night last night became acutely ill. This may have been around midnight. The patient's says that the patient complained 1st of some abdominal pain, and then of some chest pain, and then he seemed to have shaking chills. Not long after that he felt quite hot. His felt that this was very similar to the episode that brought the patient to the hospital last month and she called 911. After getting here the patient was found to have a rectal temperature of 102.3 degrees. The patient has abdominal discomfort had resolved. The patient says that the abdominal discomfort lasted about 20 minutes. There was no vomiting. There was no diarrhea. Related Data Home Medications ?Medication ?Instructions ?Recorded ?Confirmed apixaban 5 mg tablet (Eliquis) 5 mg PO BID 03/26/23 03/05/24 atorvastatin 80 mg tablet 80 mg PO DAILY 03/26/23 03/05/24 cholecalciferol (vitamin D3) 25 25 mcg PO DAILY 03/26/23 03/05/24 mcg (1,000 unit) tablet citalopram 20 mg tablet 20 mg PO DAILY 03/26/23 03/05/24 docusate sodium 50 mg capsule 50 mg PO Q6H WITH OXYCODONE 03/26/23 03/05/24 eplerenone 50 mg tablet 50 mg PO DAILY 03/26/23 03/05/24 fluticasone fur. 100 mcg-umeclid 1 ea inhalation DAILY 03/26/23 03/05/24 62.5 mcg-vilant 25 mcg inhalat.powder (Trelegy Ellipta) gabapentin 600 mg tablet 600 mg PO BID 03/26/23 03/05/24 insulin regular hum U-500 conc 500 45 unit subcut DAILY@1730 03/26/23 03/05/24 unit/mL(3 mL) subcut pen (Humulin R U-500 (Conc) Insulin Kwikpen) losartan 50 mg tablet 50 mg PO DAILY 03/26/23 03/05/24 nystatin 100,000 unit/gram topical 1 appl topical BID PRN abdominal 03/26/23 03/05/24 powder rash omeprazole 20 mg capsule,delayed 20 mg PO DAILY@0630 03/26/23 03/05/24 release oxycodone 10 mg tablet 10 mg PO Q6H PRN Moderate Pain 03/26/23 03/05/24 (Scale Score 5-6) albuterol sulfate 90 mcg/actuation 2 inh inhalation Q6H PRN Shortness 11/08/23 03/05/24 breath activated powder inhaler Of Breath Or Wheezing hydroxyzine pamoate 25 mg capsule 25 mg PO TID PRN itch 11/08/23 03/05/24 insulin regular hum U-500 conc 500 45 unit subcut DAILY@0900 11/08/23 03/05/24 unit/mL(3 mL) subcut pen (Humulin R U-500 (Conc) Insulin Kwikpen) polyethylene glycol 3350 17 17 g PO DAILY 11/08/23 03/05/24 gram/dose oral powder (Miralax) tamsulosin 0.4 mg capsule 0.4 mg PO BEDTIME 11/08/23 03/05/24 triamcinolone acetonide 0.1 % 1 appl topical BID 03/05/24 03/05/24 topical cream Previous Rx's ?Medication ?Instructions ?Recorded cefuroxime axetil 500 mg tablet 500 mg PO Q12H #22 tabs 03/08/24 empagliflozin 10 mg tablet 10 mg PO DAILY #90 tabs 03/08/24 (Jardiance) furosemide 40 mg tablet 40 mg PO DAILY #90 tabs 03/08/24 metoprolol succinate 50 mg 50 mg PO DAILY #90 tabs 03/08/24 tablet,extended release 24 hr Allergies Allergy/AdvReac Type Severity Reaction Status Date / Time No Known Allergies Allergy Verified 04/01/24 04:45 Review of Systems 2 Review of Systems: Yes all other systems are reviewed and are negative [facility] Past Medical History Medical History (Updated 04/01/24 @ 07:47 by Matthew Bal MD) Persistent atrial fibrillation Acute CHF Sepsis Abdominal pain COPD (chronic obstructive pulmonary disease) Acute hypoxemic respiratory failure Bacteremia Paroxysmal A-fib Cauda equina compression CHF (congestive heart failure) Social History Social History Household Members: Spouse Housing: Apartment Do you presently have visiting nurse or other home services: Yes Unable to assess alcohol history related to: Unknown Alcohol intake: never Patient Tobacco Use Status: Never used Tobacco Smoked in Last 30 Days: No Use of substances other than those prescribed or required for medical reasons: No Advance Directives: Yes Advance Directives on File: Yes Advance Directives Date on File: 04/21/23 service: No Physical Exam ED Vital Signs: Vital Signs - 24 hr 04/01/24 04:41 04/01/24 05:29 04/01/24 05:49 Temperature 102.3 F H Pulse Rate 95 80 88 Respiratory Rate 18 18 18 Blood Pressure 151/70 H 168/89 H 167/92 H Pulse Oximetry 95 95 95 Oxygen Delivery Method Nasal Cannula Nasal Cannula Nasal Cannula Oxygen Flow Rate 2 2 04/01/24 06:15 04/01/24 06:29 04/01/24 06:32 Temperature 101.1 F H 101.1 F H Pulse Rate 100 90 Respiratory Rate 16 18 Blood Pressure 175/95 H 157/64 H Pulse Oximetry 94 94 Oxygen Delivery Method Nasal Cannula Nasal Cannula Oxygen Flow Rate 2 2 BMI result Body Mass Index 62.4 Const Other: The patient is a very large, chronically ill-appearing 79-year-old male. His BMI is 62.4. HENMT Other: The face is symmetrical. Mucous membranes moist. Eyes General: appearance normal, both eyes and all related structures Neck Other: No obvious JVD but the neck is fairly thick. Resp Effort & Inspection: normal respiratory effort Auscultation: clear to auscultation bilaterally Cardio Other: The patient has an irregular rate and rhythm. No murmur heard. GI Other: The abdomen is large but soft and nontender. Skin Other: There are findings of erythema to both lower legs which I believe is probably chronic to some degree. He had a Xeroform dressing on the right anterior lower leg just above the foot. This was covering an area of significantly more impressive excoriation. The right lower leg is warmer than the left lower leg. Neuro Other: The patient is awake. He is somewhat hard of hearing so he let his do most of the talking. No facial asymmetry. Speech was clear. Eye movements intact. He he seems quite deconditioned but moves his extremities symmetrically. Extrem Other: The patient has erythema to both lower legs suggesting chronic dependent rubor. On the anterior portion of the right lower leg there is an area of more significant excoriation. The erythema on the right leg also feels warmer than on the left. Medications Administered Generic Name Dose Route Start Last Admin Trade Name Freq PRN Reason Stop Dose Admin Vancomycin HCl 2,000 mg in 500 mls @ 250 mls/hr 04/01/24 06:02 04/01/24 06:29 Vancomycin/Ns IV 04/01/24 08:01 250 mls/hr ONCE ONE Administration Discontinued Medications Generic Name Dose Route Start Last Admin Trade Name Freq PRN Reason Stop Dose Admin Acetaminophen 1,000 mg in 100 mls @ 400 mls/hr 04/01/24 05:07 04/01/24 05:53 Ofirmev IV 04/01/24 05:21 Infused ONCE ONE Infusion Cefepime HCl 2 gm in 50 mls @ 100 mls/hr 04/01/24 06:02 04/01/24 06:57 Maxipime IV 04/01/24 06:31 Infused ONCE ONE Infusion Sodium Chloride 1,000 mls @ 999 mls/hr 04/01/24 06:15 04/01/24 06:17 Ns IV 04/01/24 07:15 999 mls/hr .Q1H1M [facility] Administration Medical Decision Making Medical Decision Making MDM Narrative: The patient is an 79-year-old male who became abruptly ill with a high fever this morning. The source of the fever is not entirely clear. He has a clear chest x-ray and no significant respiratory symptoms. His abdomen is soft and nontender and he has no abdominal pain. He has no urinary symptoms. He has a chronic wound on his right lower young and chronic erythema to both lower legs. It is possible the wound in the right lower young might be infected and this could be a source of fever. In any event the patient met criteria for sepsis given high fever, high white blood count, and a lactate of 2.4. The patient was therefore started on empiric antibiotics with cefepime and vancomycin and will be admitted to the hospitalist service. Lab Data 04/01/24 04:59 04/01/24 04:59 Labs: Lab Results 04/01/24 04/01/24 04/01/24 Range/Units 04:59 05:02 05:05 WBC 12.5 H (4.8-10.8) X10*3/uL RBC 5.23 (4.60-5.80) X10*6/uL Hgb 14.5 (14.0-18.0) g/dl Hct 45.8 (42.0-52.0) % MCV 87.6 (80.0-98.0) fL MCH 27.7 (27.0-33.0) pg MCHC 31.7 (31.0-36.0) g/dl RDW 15.9 (11.0-16.0) % Plt Count 195 (160-400) X10*3/uL MPV 9.9 (9.4-12.4) fL Immature Gran % (Auto) 1.0 H (0.0-0.4) % Neut % (Auto) 85.3 H (45-73) % Lymph % (Auto) 7.5 L (20-40) % Phillips % (Auto) 5.2 (2-11) % Eos % (Auto) 0.6 (0-4) % Baso % (Auto) 0.4 (0-2) % Lymph # (Auto) 0.9 L (1.2-4.9) X10*3/uL Phillips # (Auto) 0.7 (0.1-1.2) X10*3/uL Eos # (Auto) 0.1 (0.0-0.4) X10*3/uL Baso # (Auto) 0.1 (0.0-0.2) X10*3/uL Abs Immat Gran (auto) 0.13 H (0.00-0.03) X10*3/uL Absolute Neuts (auto) 10.6 H (2.0-8.3) x10*3/uL Absolute Nucleated RBC 0.000 (0.0-0.012) X10*3/uL Nucleated RBC % (auto) 0.0 (0.0-0.2) /100WBC VBG pH 7.37 (7.32-7.43) VBG pCO2 48 mmHg VBG pO2 25 mmHg VBG HCO3 28 H (22-26) mmol/L VBG O2 Saturation 39.0 % VBG Base Excess 2.7 mmol/L Sodium 138 (135-145) mmol/L Potassium 4.6 D (3.3-5.1) mmol/L Chloride 102 (96-108) mmol/L Carbon Dioxide 25 (22-29) mmol/L Anion Gap 16 (12-20) BUN 15 (9-16) mg/dL Creatinine 1.19 (0.5-1.4) mg/dL Estim Creat Clear Calc 61.6 Estimated GFR 59 Random Glucose 243 H (60-115) mg/dL Lactic Acid 2.4 H* (0.5-2.0) mmol/L Calcium 9.2 D (8.4-10.2) mg/dL Magnesium 1.9 (1.6-2.6) mg/dL Total Bilirubin 1.1 H (0.0-1.0) mg/dL Direct Bilirubin 0.5 (0.0-0.5) mg/dL AST 28 (5-37) U/L ALT 16 (0-40) U/L Alkaline Phosphatase 130 H (39-117) U/L C-Reactive Protein 1.06 H (< or = 0.50) mg/dL B-Natriuretic Peptide 238 H (<100) pg/mL Total Protein 7.9 (6.5-8.0) g/dL Albumin 3.5 (3.5-5.0) g/dL Lipase 7 L (8-78) U/L Influenza Type A (PCR) NEGATIVE (Negative) Influenza Type B (PCR) NEGATIVE (Negative) RSV RNA Qual (PCR) NEGATIVE (Negative) SARS-CoV-2 RNA (RT-PCR) NEGATIVE (Negative) Independent Interpretation I performed an independent interpretation of an: EKG Interpretation: EKG at 05:12 shows atrial fibrillation at 89 beats per minute. No definite acute ischemic findings. Discharge Plan Discharge Clinical Impression: Fever and chills, Wound of right leg Patient Disposition: Admitted As Inpatient Print Language: Swedish
[2024-04-01 05:50] LABS: Influenza A PCR NEGATIVE (Negative); Influenza B PCR NEGATIVE (Negative); Resp Syncy Virus RNA Qual PCR NEGATIVE (Negative); SARS COV2 PCR INHOUSE NEGATIVE (Negative)
[2024-04-01] MEDS: 0.9 % Sodium Chloride 1,000 ML 999 ML IV (06:17)
[2024-04-01] MEDS: cefEPime HCl/D5W 2 GM/50 ML PIGGYBACK IV ×2 (06:17→19:08)
[2024-04-01] MEDS: vancomycin/NS 2,000 MG/500 ML PLAST..BAG 250 MG IV (06:29)
--- NOTE | 2024-04-01 06:50 | PC.NURSE ---
no septic protocol per Dr Castro.
[2024-04-01 07:07] LABS: Reflex Lactate? Lactic Acid Added
[2024-04-01 07:50] LABS: ~Lactic Acid-LAB USE ONLY 1.8 mmol/L (0.5-2.0)
[2024-04-01 08:43] LABS: Appearance Urine Clear; Color Urine Yellow; Glucose Urine UA >=1000 mg/dL (Negative); Leukocyte Esterase Urine Negative (Negative); Nitrite Urine Negative (Negative); PH 5.5 (5.0-9.0); Specific Gravity - Urine >= 1.030 (1.005-1.025); UMIC TRIGGER UACC YES; Urine Blood Negative (Negative); Urine Ketones Negative (Negative); Urine Protein Trace mg/dL (Neg-Trace)
[2024-04-01 08:46] LABS: Bacteria Urine None Seen (None Seen); Hyaline Casts Urine 0-2 /LPF (0-2); RBC Urine 0-2 /HPF (0-2); Squamous Epithelial Cell Urine 0-2 /HPF (0-2); WBC Urine 0-5 /HPF (0-5)
--- NOTE | 2024-04-01 08:59 | PHA.MEDREC ---
Addendum entered by Lacey Melgar [facility] 04/01/24 09:39: Reviewed Patient also confirmed to be on 40 U AM and 40 U PM of Humalog U500, claims are for 65 units but provider has told patient to decrease. Original Note: Pharmacy Consult ? Medication Reconciliation Pharmacy has completed the medication reconciliation. Spoke with patient spouse at bedside and she confirmed the patients medications. Patient spouse confirmed he finished the Cefuroxime Axetil 500mg tab the first week of March. She confirmed the patient is still taking the Citalopram 20mg tab once daily and Trellegy Ellipta inhaler once daily and confirmed he is filling it at [facility] on [facility] in [place]; I called [facility] and they confirmed the patient has not picked up the Citalopram 20mg tab since 11/29 for 90 days and the Trellegy Ellipta was last filled 12/29 for 30 days. She also confirmed that the patients Metoprolol Succinate increased from 25mg tabs to 50mg tabs in the last month per the patients . The patients confirmed he last took his medications yesterday.
--- NOTE | 2024-04-01 09:01 | P.HPHOSP_ITS ---
History of Present Illness Date of Service: 04/01/24 Chief Complaint: abdominal pain, fevers/chills The patient is a 79-year-old male with a past medical history significant for multiple medical issues including heart failure with preserved ejection fraction, AFib, chronic lymphedema with venous stasis, cauda equina syndrome diagnosed in 2022 nonambulatory, chronic lower back pain, diabetes, AGNIESZKA who presented to the emergency room with complaints of sudden onset abdominal pain lasting for about 20 minutes, sharp in nature with associated vomitus x1. Shortly after this episode, the patient had shaking chills/rigors. Paramedics were called and the patient was brought to the emergency room. Prior to this episode, the patient and report that the patient was at his baseline self. In the emergency room patient was found to be febrile as high as 102.3. His blood work showed leukocytosis over 12. His chest x-ray is negative for acute findings. His initial lactate was greater than 2. On exam, the patient was noted to have bilateral lower extremity erythema, right greater than left. He was felt to be septic possibly due to lower extremity cellulitis and was treated with IV vancomycin and cefepime. He will now be admitted for further care and treatment. The patient is seen and examined in the emergency room around 08:45. He reports no abdominal or chest symptoms at this time. He reports that his right lower extremity feels a bit more painful than his left. Review of Systems 2 Review of Systems: Negative except HPI/interval history. [facility] Medical History Persistent atrial fibrillation Acute CHF Sepsis Abdominal pain COPD (chronic obstructive pulmonary disease) Acute hypoxemic respiratory failure Bacteremia Paroxysmal A-fib Cauda equina compression CHF (congestive heart failure) Social History Household Members: Spouse Housing: Apartment Do you presently have visiting nurse or other home services: Yes Unable to assess alcohol history related to: Unknown Alcohol intake: never Patient Tobacco Use Status: Never used Tobacco Smoked in Last 30 Days: No Use of substances other than those prescribed or required for medical reasons: No Currently Displaying Signs/Symptoms of Drug Intoxication Withdrawal: No Have you been hit, kicked, punched, or otherwise hurt by someone within the past year? If so, by whom?: No Do you feel safe in your current relationship?: Yes Is there a partner from a previous relationship who is making you feel unsafe now?: No Are you made to feel afraid or neglected: No Advance Directives: Yes Advance Directives on File: Yes Advance Directives Date on File: 04/21/23 Do you have a plan to hurt others: No Plan Recently lost weight without trying: No Eating poorly because of decreased appetite: No Nutrition Risks: No Nutritional Risk Poor oral hygiene: No service: No Meds Allergies Allergy/AdvReac Type Severity Reaction Status Date / Time No Known Allergies Allergy Verified 04/01/24 04:45 Active Medications: Current Medications Acetaminophen (Acetaminophen 325 Mg Tablet) 650 mg PO Q6H PRN PRN Reason: Pain, Mild 1-3,fever,headache Calcium Carbonate (Calcium Carbonate 750 Mg Tab.Chew) 750 mg PO Q4H PRN PRN Reason: Heartburn Vancomycin HCl 1,000 mg/ (Sodium Chloride) 270 mls @ 270 mls/hr IV Q12H JOSEFA Cefepime HCl (Maxipime) 2 gm in 50 mls @ 100 mls/hr IV Q12H JOSEFA Magnesium Hydroxide (Milk Of Magnesia 30 Ml Oral.Susp) 30 ml PO DAILY PRN PRN Reason: Constipation Melatonin (Melatonin 3 Mg Tablet) 6 mg PO BEDTIME PRN PRN Reason: Insomnia Ondansetron HCl (Ondansetron Hcl 4 Mg/2 Ml Vial) 4 mg IVPUSH Q8H PRN PRN Reason: Nausea and Vomiting Pharmacy Consult (Consult Rx Vancomycin Dosing) 1 each MISCELLANE DAILY PRN PRN Reason: Consult order Sodium Chloride (0.9 % Sodium Chloride Flush 3 Ml Syringe) 3 ml IVFLUSH QSHIFT [facility] Home Medications ?Medication ?Instructions ?Recorded ?Confirmed ?Last Taken ?Type apixaban 5 mg tablet (Eliquis) 5 mg PO BID 03/26/23 04/01/24 03/31/24 History atorvastatin 80 mg tablet 80 mg PO BEDTIME 03/26/23 04/01/24 03/31/24 History cholecalciferol (vitamin D3) 25 25 mcg PO DAILY 03/26/23 04/01/24 03/31/24 History mcg (1,000 unit) tablet citalopram 20 mg tablet 20 mg PO DAILY 03/26/23 04/01/24 03/31/24 History docusate sodium 50 mg capsule 50 mg PO Q6H PRN WITH OXYCODONE 03/26/23 04/01/24 03/04/24 History eplerenone 50 mg tablet 50 mg PO DAILY 03/26/23 04/01/24 03/31/24 History fluticasone fur. 100 mcg-umeclid 1 ea inhalation DAILY 03/26/23 04/01/24 03/31/24 History 62.5 mcg-vilant 25 mcg inhalat.powder (Trelegy Ellipta) gabapentin 600 mg tablet 600 mg PO BID 03/26/23 04/01/24 03/31/24 History insulin regular hum U-500 conc 500 40 unit subcut DAILY@1730 03/26/23 04/01/24 03/31/24 History unit/mL(3 mL) subcut pen (Humulin R U-500 (Conc) Insulin Kwikpen) losartan 50 mg tablet 50 mg PO DAILY 03/26/23 04/01/24 03/31/24 History nystatin 100,000 unit/gram topical 1 appl topical BID PRN abdominal 03/26/23 04/01/24 03/26/23 History powder rash omeprazole 20 mg capsule,delayed 20 mg PO DAILY@0630 03/26/23 04/01/24 03/31/24 History release oxycodone 10 mg tablet 10 mg PO Q6H PRN Moderate Pain 03/26/23 04/01/24 11/07/23 History (Scale Score 5-6) albuterol sulfate 90 mcg/actuation 2 inh inhalation Q6H PRN Shortness 11/08/23 04/01/24 Unknown History breath activated powder inhaler Of Breath Or Wheezing hydroxyzine pamoate 25 mg capsule 25 mg PO TID PRN itch 11/08/23 04/01/24 Unknown History insulin regular hum U-500 conc 500 40 unit subcut DAILY@0900 11/08/23 04/01/24 03/31/24 History unit/mL(3 mL) subcut pen (Humulin R U-500 (Conc) Insulin Kwikpen) polyethylene glycol 3350 17 17 g PO DAILY PRN Constipation 11/08/23 04/01/24 03/04/24 History gram/dose oral powder (Miralax) tamsulosin 0.4 mg capsule 0.4 mg PO BEDTIME 11/08/23 04/01/24 03/31/24 History triamcinolone acetonide 0.1 % 1 appl topical BID 03/05/24 04/01/24 03/31/24 History topical cream Physical Exam 2 Vital Signs and Narrative: Vital Signs: Last Vital Signs Temp 98.1 F 04/01/24 08:30 Pulse 92 04/01/24 08:30 Resp 15 04/01/24 08:30 BP 152/88 H 04/01/24 08:30 Pulse Ox 95 04/01/24 08:30 O2 Del Method Room Air 04/01/24 08:30 O2 Flow Rate 2 04/01/24 06:32 Oxygen Flow Rate 2 04/01/24 04:41 BMI result Body Mass Index 62.4 Const: Other: Constitutional - Awake and Alert, No apparent distress Eyes - PERRLA, EOMI Cardiovascular - S1S2, RRR, No edema Respiratory - Normal lung expansion, Normal respiratory effort, No respiratory distress, CTA bilaterally Gastrointestinal - NT / ND; +BS; No rebound or guarding - No CVA tenderness Extremities - no calf tenderness bilaterally Musculoskeletal - Normal inspection, normal ROM Skin - b/l LE edema with erythema, tenderness, warmth and signs of chronic edema; some skin exocriations and open wounds; R > L Neurological - Alert & oriented x3, No focal deficit Psychological - Appropriate affect Results Labs 04/02/24 05:59 04/03/24 05:36 Labs: Laboratory Results - last 24 hr 04/01/24 04/01/24 04/01/24 04:59 05:02 05:05 MCV 87.6 MCH 27.7 MCHC 31.7 RDW 15.9 Plt Count 195 MPV 9.9 Immature Gran % (Auto) 1.0 H Neut % (Auto) 85.3 H Lymph % (Auto) 7.5 L [place] % (Auto) 5.2 Eos % (Auto) 0.6 Baso % (Auto) 0.4 Lymph # (Auto) 0.9 L [place] # (Auto) 0.7 Eos # (Auto) 0.1 Baso # (Auto) 0.1 Abs Immat Gran (auto) 0.13 H Absolute Neuts (auto) 10.6 H Absolute Nucleated RBC 0.000 Nucleated RBC % (auto) 0.0 VBG pH 7.37 VBG pCO2 48 VBG pO2 25 VBG HCO3 28 H VBG O2 Saturation 39.0 VBG Base Excess 2.7 Anion Gap 16 Estim Creat Clear Calc 61.6 Estimated GFR 59 Random Glucose 243 H Lactic Acid 2.4 H* Lactic Acid F/U @ 2Hr Calcium 9.2 D Magnesium 1.9 Total Bilirubin 1.1 H Direct Bilirubin 0.5 AST 28 ALT 16 Alkaline Phosphatase 130 H C-Reactive Protein 1.06 H B-Natriuretic Peptide 238 H Total Protein 7.9 Albumin 3.5 Lipase 7 L Urine Color Urine Appearance Urine pH Ur Specific [place] Urine Protein Urine Glucose (UA) Urine Ketones Urine Blood Urine Nitrite Ur Leukocyte Esterase Urine RBC Urine WBC Ur Squamous Epith Cells Urine Bacteria Hyaline Casts Influenza Type A (PCR) NEGATIVE Influenza Type B (PCR) NEGATIVE RSV RNA Qual (PCR) NEGATIVE SARS-CoV-2 RNA (RT-PCR) NEGATIVE 04/01/24 04/01/24 07:27 08:38 MCV MCH MCHC RDW Plt Count MPV Immature Gran % (Auto) Neut % (Auto) Lymph % (Auto) [place] % (Auto) Eos % (Auto) Baso % (Auto) Lymph # (Auto) [place] # (Auto) Eos # (Auto) Baso # (Auto) Abs Immat Gran (auto) Absolute Neuts (auto) Absolute Nucleated RBC Nucleated RBC % (auto) VBG pH VBG pCO2 VBG pO2 VBG HCO3 VBG O2 Saturation VBG Base Excess Anion Gap Estim Creat Clear Calc Estimated GFR Random Glucose Lactic Acid Lactic Acid F/U @ 2Hr 1.8 Calcium Magnesium Total Bilirubin Direct Bilirubin AST ALT Alkaline Phosphatase C-Reactive Protein B-Natriuretic Peptide Total Protein Albumin Lipase Urine Color Yellow Urine Appearance Clear Urine pH 5.5 Ur Specific [place] >= 1.030 H Urine Protein Trace Urine Glucose (UA) >=1000 H Urine Ketones Negative Urine Blood Negative Urine Nitrite Negative Ur Leukocyte Esterase Negative Urine RBC 0-2 Urine WBC 0-5 Ur Squamous Epith Cells 0-2 Urine Bacteria None Seen Hyaline Casts 0-2 Influenza Type A (PCR) Influenza Type B (PCR) RSV RNA Qual (PCR) SARS-CoV-2 RNA (RT-PCR) Assessment and Plan (1) Fever and chills: Status: Acute Plan 79 yo M with multiple medical problems presenting with sudden onset abd. pain followed by vomiting and shaking chills/rigors. Found to be septic with concerns over bacteremia. Will be admitted for further evaluation and treatment. 1. Severe sepsis due to cellulitis of RLE rule out bacteremia iv vancomcyin/cefepime follow up cultures consider ID eval pending cultures / clinical course if not improved, consider abdominal imaging given initial presenting pain 2. Abdominal pain prior to ED arrival and now resolved clinically exam is benign monitor for now 3. DM sliding scale + POC 4. HFpEF continue lasix, changed eplerenone(non-forumlary) to aldactone, continue jardiance, continue metprolol 5. A. Fib cotinue metoprolol + eliquis 6. COPD continue baseline inhalers 7. AGNIESZKA cpap at night 8. morbid obesity with chronic lymphedema / venous stasis wound care DNR/DNI DVT eliquis pt with severe sepsis and multiple risk factors for further decompensation (obesity, DM, CHF) therefore expected to require at least 2 midnights of treatment, hence will be admitted as inpatient. Quality Stroke Does the patient have a stroke diagnosis?: No VTE Prior VTE?: No VTE Risk Level:: Medical - moderate - high VTE Device Contraindication: Treatment Not Tolerated VTE Drug Contraindication: N/A - Med Ordered
[2024-04-01] MEDS: Apixaban 5 MG TABLET PO ×2 (10:22→21:19)
[2024-04-01] MEDS: Metoprolol Succinate ER 50 MG TAB.ER.24H PO (10:22)
[2024-04-01] MEDS: Losartan Potassium 50 MG TABLET PO (10:22)
--- NOTE | 2024-04-01 14:49 | PC.NURSE ---
Patient is refusing to have dressing to his right leg, itchy . This RN called Dr Santillan and informed him of the situation, at this time, no further orders are needed. patient also asked me to call his and ask what the medication was to put on his right leg; I did call and its a steroid called MD Teo does not want this product applied as he has an active infection, patient and told.
[2024-04-01 17:02] LABS: Glucose, Whole Blood 217 mg/dL (60-115)
[2024-04-01] MEDS: Insulin Lispro 100 UNIT/ML 3 ML VIAL SUBCUT ×2 (17:15→21:49)
[2024-04-01] MEDS: 0.9 % Sodium Chloride Flush 3 ML SYRINGE IVFLUSH ×2 (17:20→23:58)
[2024-04-01] MEDS: Calcium Carbonate 750 MG TAB.CHEW PO ×2 (17:20→22:24)
[2024-04-01] MEDS: hydrOXYzine HCL 25 MG TABLET PO (17:20)
[2024-04-01] MEDS: ondansetron HCL 4 MG/2 ML VIAL IVPUSH (17:23)
[2024-04-01 20:36] LABS: Glucose, Whole Blood 217 mg/dL (60-115)
[2024-04-01] MEDS: vancomycin HCL 750 MG in 0.9 % Sodium Chloride 250 ML 265 MG IV (21:18)
[2024-04-01] MEDS: Tamsulosin HCL 0.4 MG CAPSULE PO (21:19)
[2024-04-01] MEDS: Atorvastatin Calcium 80 MG TABLET PO (21:19)
[2024-04-01] MEDS: Gabapentin 600 MG TABLET PO (21:19)
[2024-04-02] VITALS (8 sets, daily range): BP systolic 122–147; BP diastolic 60–78; PULSE 63–94; RESP 16–18; TEMP 36–36.8; O2SAT 93–96
--- NOTE | 2024-04-02 01:37 | HO.SKINPHOTO ---
Location: RLE Category: venous stasis dermatitis. Stage: Length: Width: Depth: cm Location: Category: Stage: Length: Width: Depth: cm Location: Category: Stage: Length: Width: Depth: cm Location: Category: Stage: Length: Width: Depth: cm Location: Category: Stage: Length: Width: Depth: cm Location: Category: Stage: Length: Width: Depth: cm
--- NOTE | 2024-04-02 01:47 | HO.SKINPHOTO ---
Location: LLE Category: venous stasis Stage: Length: Width: Depth: cm Location: Category: Stage: Length: Width: Depth: cm Location: Category: Stage: Length: Width: Depth: cm Location: Category: Stage: Length: Width: Depth: cm Location: Category: Stage: Length: Width: Depth: cm Location: Category: Stage: Length: Width: Depth: cm
[2024-04-02] MEDS: cefEPime HCl/D5W 2 GM/50 ML PIGGYBACK IV ×2 (05:44→17:17)
[2024-04-02] MEDS: Omeprazole 20 MG CAPSULE.DR PO (05:45)
[2024-04-02 06:57] LABS: Hematocrit 44.2 % (42.0-52.0); Hemoglobin 14.2 g/dl (14.0-18.0); Mean Corpuscular HGB Conc 32.1 g/dl (31.0-36.0); Mean Corpuscular Hemoglobin 27.8 pg (27.0-33.0); Mean Corpuscular Volume 86.5 fL (80.0-98.0); Mean Platelet Volume 10.5 fL (9.4-12.4); Platelet Count 189 X10*3/uL (160-400); Red Blood Count 5.11 X10*6/uL (4.60-5.80); Red Cell Distribution Width 15.8 % (11.0-16.0); White Blood Count 8.3 X10*3/uL (4.8-10.8)
[2024-04-02 06:59] LABS: Alanine Aminotransferase 12 U/L (0-40); Albumin Level 3.2 g/dL (3.5-5.0); Alkaline Phosphatase 100 U/L (39-117); Anion Gap 12 (12-20); Aspartate Amino Transferase 26 U/L (5-37); Bilirubin Total 1.2 mg/dL (0.0-1.0); Blood Urea Nitrogen 13 mg/dL (9-16); Calcium 8.5 mg/dL (8.4-10.2); Carbon Dioxide 24 mmol/L (22-29); Chloride 105 mmol/L (96-108); Creatinine Clr Calc Pharmacy 89.4; Estimated Glomerular Filt Rate > 60; Glucose Random 198 mg/dL (60-115); Potassium 4.3 mmol/L (3.3-5.1); Sodium 137 mmol/L (135-145); Total Protein 7.2 g/dL (6.5-8.0)
[2024-04-02 07:53] LABS: Glucose, Whole Blood 186 mg/dL (60-115)
[2024-04-02] MEDS: Fluticasone/Umeclidinium/Vilanterol 100/62.5/25 BLST.W.DEV 1 PUFF INHALE (08:30)
[2024-04-02] MEDS: Insulin Lispro 100 UNIT/ML 3 ML VIAL SUBCUT ×4 (08:33→21:58)
[2024-04-02] MEDS: Apixaban 5 MG TABLET PO ×2 (08:35→20:53)
[2024-04-02] MEDS: Furosemide 40 MG TABLET PO (08:35)
[2024-04-02] MEDS: Losartan Potassium 50 MG TABLET PO (08:35)
[2024-04-02] MEDS: vancomycin HCL 750 MG in 0.9 % Sodium Chloride 250 ML 265 MG IV (08:36)
[2024-04-02] MEDS: Cholecalciferol (Vitamin D3) 25 MCG TABLET PO (08:36)
[2024-04-02] MEDS: Metoprolol Succinate ER 50 MG TAB.ER.24H PO (08:36)
[2024-04-02] MEDS: Escitalopram Oxalate 10 MG TABLET PO (08:36)
[2024-04-02] MEDS: 0.9 % Sodium Chloride Flush 3 ML SYRINGE IVFLUSH ×3 (08:36→20:54)
[2024-04-02] MEDS: Empagliflozin 10 MG TABLET PO (08:36)
[2024-04-02] MEDS: Gabapentin 600 MG TABLET PO ×2 (08:36→20:53)
[2024-04-02] MEDS: hydrOXYzine HCL 25 MG TABLET PO ×2 (10:11→21:02)
--- NOTE | 2024-04-02 10:30 | MHC.CM.PN ---
PT REPORTS HE LIVES WITH HIS WHO PROVIDES ASSISTANCE PRN PT IS ALSO ACTIVE WITH [facility] PT USES A WALKER, HE ALSO HAS A POWER W/C, HOWEVER IT IS NOT WORKING HCP AND MOLST ON FILE PCP: RAHUL IRVIN IMM DELIVERED DCP: HOME, [facility] AND FAMILY SUPPORT BLS TRANSPORT
[2024-04-02 11:35] LABS: Glucose, Whole Blood 193 mg/dL (60-115)
--- NOTE | 2024-04-02 14:45 | P.PNIM_ITS ---
Subjective Subjective Date of Service: 04/02/24 Interval History: seen and examined this morning follow up for fever, cellulitis hard of hearing no fever no overnight events Review of Systems Review of Systems: Yes all other systems are reviewed and are negative Constitutional Constitutional: Denies chills and Denies fever(s) Cardiovascular Cardiovascular: Denies chest pain, Denies palpitations and Denies dyspnea Respiratory Respiratory: Denies cough and Denies dyspnea Endocrine Endocrine: Denies palpitations Physical Exam 2 Vital Signs: Vital Signs: Last Vital Signs Temp 98.3 F 04/02/24 12:00 Pulse 76 04/02/24 12:00 Resp 18 04/02/24 12:00 BP 140/70 H 04/02/24 12:00 Pulse Ox 94 04/02/24 12:00 O2 Del Method Room Air 04/02/24 12:00 O2 Flow Rate 2 04/01/24 06:32 Oxygen Flow Rate 2 04/01/24 04:41 BMI result Body Mass Index 62.4 Const: General: alert, awake and Physically active Nutritional Appearance: obese Orientation/consciousness: patient oriented x3 Resp: Effort & Inspection: normal respiratory effort, able to speak in complete sentences, no respiratory distress and no use of accessory muscles Cardio: Rate: regular rate GI: Inspection: No distended, Yes Abdominal panniculus present and Yes obesity Palpation (GI): Soft to palpation and nontender Skin: Other: b/l lower extremity venous stasis, no significant erythema or warmth; dry skin right >left Neuro: General: patient oriented x3, moves all extremities and normal sensation to monofilament Objective Data Active Medications Acetaminophen (Acetaminophen 325 Mg Tablet) 650 mg PO Q6H PRN PRN Reason: Pain, Mild 1-3,fever,headache Apixaban (Apixaban 5 Mg Tablet) 5 mg PO BID [facility] Last Admin: 04/02/24 08:35 Dose: 5 mg Documented By: MANJULA Atorvastatin Calcium (Atorvastatin Calcium 80 Mg Tablet) 80 mg PO BEDTIME [facility] Last Admin: 04/01/24 21:19 Dose: 80 mg Documented By: ANGUS Calcium Carbonate (Calcium Carbonate 750 Mg Tab.Chew) 750 mg PO Q4H PRN PRN Reason: Heartburn Last Admin: 04/01/24 22:24 Dose: 750 mg Documented By: ANGUS Empagliflozin (Empagliflozin 10 Mg Tablet) 10 mg PO DAILY [facility] Last Admin: 04/02/24 08:36 Dose: 10 mg Documented By: MANJULA Escitalopram Oxalate (Escitalopram Oxalate 10 Mg Tablet) 10 mg PO DAILY [facility] Last Admin: 04/02/24 08:36 Dose: 10 mg Documented By: MANJULA Fluticasone/Umeclidinium/Vilanterol (Fluticasone/Umeclidinium/Vilanterol 100/62.5/25 Blst.W.Dev) 1 puff INHALE RDAILY [facility] Last Admin: 04/02/24 08:30 Dose: 1 puff Documented By: BRITTANEY Furosemide (Furosemide 40 Mg Tablet) 40 mg PO DAILY [facility]; Protocol Last Admin: 04/02/24 08:35 Dose: 40 mg Documented By: MANJULA Gabapentin (Gabapentin 600 Mg Tablet) 600 mg PO BID [facility] Last Admin: 04/02/24 08:36 Dose: 600 mg Documented By: MANJULA Glucose (Glucose Gel 15 Gm Gel..Gram.) 15 gm PO Q15M PRN; Protocol PRN Reason: per Hypoglycemia Standing Ord. Hydroxyzine HCl (Hydroxyzine Hcl 25 Mg Tablet) 25 mg PO TID PRN PRN Reason: itch Last Admin: 04/02/24 10:11 Dose: 25 mg Documented By: MANJULA Cefepime HCl (Maxipime) 2 gm in 50 mls @ 100 mls/hr IV Q12H [facility] Last Infusion: 04/02/24 06:15 Dose: Infused Documented By: ANGUS Vancomycin HCl 750 mg/ Sodium (Chloride) 265 mls @ 265 mls/hr IV Q12H [facility] Last Infusion: 04/02/24 09:41 Dose: Infused Documented By: MANJULA Dextrose (D10) 250 mls @ 750 mls/hr IV Q15M PRN; Protocol PRN Reason: per Hypoglycemia Standing Ord. Insulin Human Lispro (Insulin Lispro 100 Unit/Ml 3 Ml Vial) 0 unit SUBCUT QIDACHS [facility]; Protocol Last Admin: 04/02/24 12:02 Dose: 4 unit Documented By: MANJULA Losartan Potassium (Losartan Potassium 50 Mg Tablet) 50 mg PO DAILY [facility]; Protocol Last Admin: 04/02/24 08:35 Dose: 50 mg Documented By: MANJULA Magnesium Hydroxide (Milk Of Magnesia 30 Ml Oral.Susp) 30 ml PO DAILY PRN PRN Reason: Constipation Melatonin (Melatonin 3 Mg Tablet) 6 mg PO BEDTIME PRN PRN Reason: Insomnia Metoprolol Succinate (Metoprolol Succinate Er 50 Mg Tab.Er.24h) 50 mg PO DAILY [facility]; Protocol Last Admin: 04/02/24 08:36 Dose: 50 mg Documented By: MANJULA Non-Formulary Medication (Eplerenone) 50 mg PO DAILY [facility] Omeprazole (Omeprazole 20 Mg Capsule.Dr) 20 mg PO DAILY@0630 [facility] Last Admin: 04/02/24 05:45 Dose: 20 mg Documented By: ANGUS Ondansetron HCl (Ondansetron Hcl 4 Mg/2 Ml Vial) 4 mg IVPUSH Q8H PRN PRN Reason: Nausea and Vomiting Last Admin: 04/01/24 17:23 Dose: 4 mg Documented By: JAVIER Oxycodone HCl (Oxycodone Hcl Immed Release 5 Mg Tablet) 10 mg PO Q6H PRN PRN Reason: Pain, Moderate(Pain Scale 4-6) Pharmacy Consult (Consult Rx Vancomycin Dosing) 1 each MISCELLANE DAILY PRN PRN Reason: Consult order Polyethylene Glycol (Polyethylene Glycol 3350 17 Gm Powd.Pack) 17 gm PO DAILY PRN PRN Reason: Constipation Sodium Chloride (0.9 % Sodium Chloride Flush 3 Ml Syringe) 3 ml IVFLUSH QSHIFT [facility] Last Admin: 04/02/24 08:36 Dose: 3 ml Documented By: MANJULA Tamsulosin HCl (Tamsulosin Hcl 0.4 Mg Capsule) 0.4 mg PO BEDTIME [facility] Last Admin: 04/01/24 21:19 Dose: 0.4 mg Documented By: ANGUS Vitamin D (Cholecalciferol (Vitamin D3) 25 Mcg Tablet) 25 mcg PO DAILY [facility] Last Admin: 04/02/24 08:36 Dose: 25 mcg Documented By: MANJULA Labs 04/02/24 05:59 04/02/24 05:59 Labs: Laboratory Results - last 24 hr 04/01/24 04/01/24 04/02/24 16:42 20:22 05:59 MCV 86.5 MCH 27.8 MCHC 32.1 RDW 15.8 Plt Count 189 MPV 10.5 Absolute Nucleated RBC 0.000 Nucleated RBC % (auto) 0.0 Anion Gap 12 Estim Creat Clear Calc 89.4 Estimated GFR > 60 POC Glucose 217 H 217 H Random Glucose 198 H Calcium 8.5 D Total Bilirubin 1.2 H AST 26 ALT 12 Alkaline Phosphatase 100 Total Protein 7.2 Albumin 3.2 L 04/02/24 04/02/24 07:14 11:20 MCV MCH MCHC RDW Plt Count MPV Absolute Nucleated RBC Nucleated RBC % (auto) Anion Gap Estim Creat Clear Calc Estimated GFR POC Glucose 186 H 193 H Random Glucose Calcium Total Bilirubin AST ALT Alkaline Phosphatase Total Protein Albumin Microbiology Microbiology Results: Microbiology 04/01/24 05:14 Blood Culture - Final Blood - Venous Strep agalactiae (Grp B) 04/01/24 05:08 Blood Culture - Preliminary Blood - Venous No growth after 24 hours. Assessment and Plan (1) Wound of right leg: Status: Acute Plan 79 yo M with multiple medical problems presenting with sudden onset abd. pain followed by vomiting and shaking chills/rigors. Found to be septic with concerns over bacteremia. Will be admitted for further evaluation and treatment. 1. Severe sepsis due to cellulitis of RLE in the setting of chrnoic lymphedema/venous stasis 1/2 blood cultures growing GPC - follow final speciation continue iv vancomcyin/cefepime ID eval pending wound care eval pending 2. Abdominal pain prior to ED arrival and now resolved clinically exam is benign Abdominal ultrasound pending 3. DM sliding scale + POC 4. HFpEF continue lasix, eplerenone(non-formulary), continue jardiance, continue metprolol 5. A. Fib cotinue metoprolol + eliquis 6. COPD continue baseline inhalers 7. AGNIESZKA cpap at night 8. morbid obesity with chronic lymphedema / venous stasis wound care weight loss enouraged non ambulatory due to underlying cauda equina syndrome DNR/DNI DVT eliquis Requires ongoing inpatient stay for management of bacteremia, cellulitis with IV antibiotics and specialist evaluation Quality Stroke Does the patient have a stroke diagnosis?: No VTE Prior VTE?: No VTE Risk Level:: Medical - moderate - high VTE Device Contraindication: Treatment Not Tolerated VTE Drug Contraindication: N/A - Med Ordered
[2024-04-02 16:18] LABS: Glucose, Whole Blood 205 mg/dL (60-115)
[2024-04-02 19:16] LABS: Vancomycin Random 13.6 mcg/mL (15-20)
[2024-04-02 20:52] LABS: Glucose, Whole Blood 225 mg/dL (60-115)
[2024-04-02] MEDS: vancomycin HCL 1,000 MG in 0.9 % Sodium Chloride 250 ML 270 MG IV (20:53)
[2024-04-02] MEDS: Atorvastatin Calcium 80 MG TABLET PO (20:53)
[2024-04-02] MEDS: Tamsulosin HCL 0.4 MG CAPSULE PO (21:59)
[2024-04-03 03:32] VITALS: BP 139/62; PULSE 64; RESP 18; TEMP 36.4; O2SAT 93
[2024-04-03] MEDS: cefEPime HCl/D5W 2 GM/50 ML PIGGYBACK IV (05:39)
[2024-04-03] MEDS: Omeprazole 20 MG CAPSULE.DR PO (06:08)
[2024-04-03 06:48] LABS: Creatinine Clr Calc Pharmacy 83.3; Estimated Glomerular Filt Rate > 60
[2024-04-03 07:18] VITALS: BP 130/80; PULSE 82; RESP 18; TEMP 36; O2SAT 94
[2024-04-03 07:56] LABS: Glucose, Whole Blood 235 mg/dL (60-115)
[2024-04-03] MEDS: Losartan Potassium 50 MG TABLET PO (09:41)
[2024-04-03] MEDS: vancomycin HCL 1,000 MG in 0.9 % Sodium Chloride 250 ML 270 MG IV (09:41)
[2024-04-03] MEDS: Empagliflozin 10 MG TABLET PO (09:41)
[2024-04-03] MEDS: Cholecalciferol (Vitamin D3) 25 MCG TABLET PO (09:41)
[2024-04-03] MEDS: Metoprolol Succinate ER 50 MG TAB.ER.24H PO (09:41)
[2024-04-03] MEDS: Apixaban 5 MG TABLET PO ×2 (09:41→20:03)
[2024-04-03] MEDS: Escitalopram Oxalate 10 MG TABLET PO (09:41)
[2024-04-03] MEDS: Gabapentin 600 MG TABLET PO ×2 (09:41→20:03)
[2024-04-03] MEDS: Furosemide 40 MG TABLET PO (09:42)
[2024-04-03] MEDS: 0.9 % Sodium Chloride Flush 3 ML SYRINGE IVFLUSH ×3 (09:42→20:04)
[2024-04-03 09:47] LABS: Glucose, Whole Blood 218 mg/dL (60-115)
[2024-04-03 11:28] LABS: Glucose, Whole Blood 190 mg/dL (60-115)
[2024-04-03 11:42] VITALS: BP 141/67; PULSE 74; RESP 18; TEMP 36.4; O2SAT 96
[2024-04-03] MEDS: Insulin Lispro 100 UNIT/ML 3 ML VIAL SUBCUT ×3 (12:27→21:16)
[2024-04-03] MEDS: hydrOXYzine HCL 25 MG TABLET PO ×2 (12:43→20:09)
--- NOTE | 2024-04-03 13:46 | P.PNIM_ITS ---
Subjective Subjective Date of Service: 04/03/24 Interval History: seen and examined this morning follow up for cellulitis, bacteremia no further abdominal pain or fever Review of Systems Review of Systems: Yes all other systems are reviewed and are negative Constitutional Constitutional: Denies chills and Denies fever(s) Physical Exam 2 Vital Signs: Vital Signs: Last Vital Signs Temp 97.6 F 04/03/24 11:42 Pulse 74 04/03/24 11:42 Resp 18 04/03/24 11:42 BP 141/67 H 04/03/24 11:42 Pulse Ox 96 04/03/24 11:42 O2 Del Method Room Air 04/03/24 11:42 O2 Flow Rate 2 04/01/24 06:32 Oxygen Flow Rate 2 04/01/24 04:41 BMI result Body Mass Index 62.4 Const: General: alert, awake and Physically active Nutritional Appearance: obese Orientation/consciousness: patient oriented x3 Resp: Effort & Inspection: normal respiratory effort, able to speak in complete sentences, no respiratory distress and no use of accessory muscles Cardio: Rate: regular rate GI: Inspection: No distended, Yes Abdominal panniculus present and Yes obesity Palpation (GI): Soft to palpation and nontender Skin: Other: b/l lower extremity venous stasis, no significant erythema or warmth; dry skin right >left Neuro: General: patient oriented x3, moves all extremities and normal sensation to monofilament Objective Data Active Medications Acetaminophen (Acetaminophen 325 Mg Tablet) 650 mg PO Q6H PRN PRN Reason: Pain, Mild 1-3,fever,headache Apixaban (Apixaban 5 Mg Tablet) 5 mg PO BID [facility] Last Admin: 04/03/24 09:41 Dose: 5 mg Documented By: MANJULA Atorvastatin Calcium (Atorvastatin Calcium 80 Mg Tablet) 80 mg PO BEDTIME [facility] Last Admin: 04/02/24 20:53 Dose: 80 mg Documented By: ANGUS Calcium Carbonate (Calcium Carbonate 750 Mg Tab.Chew) 750 mg PO Q4H PRN PRN Reason: Heartburn Last Admin: 04/01/24 22:24 Dose: 750 mg Documented By: ANGUS Empagliflozin (Empagliflozin 10 Mg Tablet) 10 mg PO DAILY [facility] Last Admin: 04/03/24 09:41 Dose: 10 mg Documented By: MANJULA Escitalopram Oxalate (Escitalopram Oxalate 10 Mg Tablet) 10 mg PO DAILY [facility] Last Admin: 04/03/24 09:41 Dose: 10 mg Documented By: MANJULA Fluticasone/Umeclidinium/Vilanterol (Fluticasone/Umeclidinium/Vilanterol 100/62.5 Blst.W.Dev) 1 puff INHALE RDAILY [facility] Last Admin: 04/03/24 08:38 Dose: Not Given Documented By: GENARO Non-Admin Reason: Patient Condition Contraindication Furosemide (Furosemide 40 Mg Tablet) 40 mg PO DAILY [facility]; Protocol Last Admin: 04/03/24 09:42 Dose: 40 mg Documented By: MANJULA Gabapentin (Gabapentin 600 Mg Tablet) 600 mg PO BID [facility] Last Admin: 04/03/24 09:41 Dose: 600 mg Documented By: MANJULA Glucose (Glucose Gel 15 Gm Gel..Gram.) 15 gm PO Q15M PRN; Protocol PRN Reason: per Hypoglycemia Standing Ord. Hydroxyzine HCl (Hydroxyzine Hcl 25 Mg Tablet) 25 mg PO TID PRN PRN Reason: itch Last Admin: 04/03/24 12:43 Dose: 25 mg Documented By: MANJULA Cefepime HCl (Maxipime) 2 gm in 50 mls @ 100 mls/hr IV Q12H [facility] Last Infusion: 04/03/24 06:10 Dose: Infused Documented By: ANGUS Dextrose (D10) 250 mls @ 750 mls/hr IV Q15M PRN; Protocol PRN Reason: per Hypoglycemia Standing Ord. Vancomycin HCl 1,000 mg/ (Sodium Chloride) 270 mls @ 270 mls/hr IV Q12H [facility] Last Infusion: 04/03/24 11:04 Dose: Infused Documented By: MANJULA Insulin Human Lispro (Insulin Lispro 100 Unit/Ml 3 Ml Vial) 0 unit SUBCUT QIDACHS [facility]; Protocol Last Admin: 04/03/24 12:27 Dose: 4 unit Documented By: MANJULA Losartan Potassium (Losartan Potassium 50 Mg Tablet) 50 mg PO DAILY [facility]; Protocol Last Admin: 04/03/24 09:41 Dose: 50 mg Documented By: MANJULA Magnesium Hydroxide (Milk Of Magnesia 30 Ml Oral.Susp) 30 ml PO DAILY PRN PRN Reason: Constipation Melatonin (Melatonin 3 Mg Tablet) 6 mg PO BEDTIME PRN PRN Reason: Insomnia Metoprolol Succinate (Metoprolol Succinate Er 50 Mg Tab.Er.24h) 50 mg PO DAILY [facility]; Protocol Last Admin: 04/03/24 09:41 Dose: 50 mg Documented By: MANJULA Non-Formulary Medication (Eplerenone) 50 mg PO DAILY [facility] Omeprazole (Omeprazole 20 Mg Capsule.Dr) 20 mg PO DAILY@0630 [facility] Last Admin: 04/03/24 06:08 Dose: 20 mg Documented By: ANGUS Ondansetron HCl (Ondansetron Hcl 4 Mg/2 Ml Vial) 4 mg IVPUSH Q8H PRN PRN Reason: Nausea and Vomiting Last Admin: 04/01/24 17:23 Dose: 4 mg Documented By: JAVIER Oxycodone HCl (Oxycodone Hcl Immed Release 5 Mg Tablet) 10 mg PO Q6H PRN PRN Reason: Pain, Moderate(Pain Scale 4-6) Pharmacy Consult (Consult Rx Vancomycin Dosing) 1 each MISCELLANE DAILY PRN PRN Reason: Consult order Polyethylene Glycol (Polyethylene Glycol 3350 17 Gm Powd.Pack) 17 gm PO DAILY PRN PRN Reason: Constipation Sodium Chloride (0.9 % Sodium Chloride Flush 3 Ml Syringe) 3 ml IVFLUSH QSHIFT [facility] Last Admin: 04/03/24 09:42 Dose: 3 ml Documented By: MANJULA Tamsulosin HCl (Tamsulosin Hcl 0.4 Mg Capsule) 0.4 mg PO BEDTIME [facility] Last Admin: 04/02/24 21:59 Dose: 0.4 mg Documented By: ANGUS Vitamin D (Cholecalciferol (Vitamin D3) 25 Mcg Tablet) 25 mcg PO DAILY [facility] Last Admin: 04/03/24 09:41 Dose: 25 mcg Documented By: MANJULA Labs 04/02/24 05:59 04/03/24 05:36 Labs: Laboratory Results - last 24 hr 04/02/24 04/02/24 04/02/24 16:12 18:41 20:38 Estim Creat Clear Calc Estimated GFR POC Glucose 205 H 225 H Random Vancomycin 13.6 L 04/03/24 04/03/24 04/03/24 05:36 07:20 09:42 Estim Creat Clear Calc 83.3 Estimated GFR > 60 POC Glucose 235 H 218 H Random Vancomycin 04/03/24 11:10 Estim Creat Clear Calc Estimated GFR POC Glucose 190 H Random Vancomycin Microbiology Microbiology Results: Microbiology 04/01/24 05:08 Blood Culture - Preliminary Blood - Venous No growth after 48 hours. 04/01/24 05:14 Blood Culture - Final Blood - Venous Strep agalactiae (Grp B) Assessment and Plan (1) Fever and chills: Status: Acute Plan 79 yo M with multiple medical problems presenting with sudden onset abd. pain followed by vomiting and shaking chills/rigors. Found to be septic with concerns over bacteremia. Will be admitted for further evaluation and treatment. 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 Fib cotinue metoprolol + eliquis COPD continue baseline inhalers AGNIESZKA cpap at night morbid obesity with chronic lymphedema / venous stasis wound care weight loss encouraged non ambulatory due to underlying cauda equina syndrome DNR/DNI DVT eliquis Requires ongoing inpatient stay for management of bacteremia, cellulitis with IV antibiotics and specialist evaluation Quality Stroke Does the patient have a stroke diagnosis?: No VTE Prior VTE?: No VTE Risk Level:: Medical - moderate - high VTE Device Contraindication: Treatment Not Tolerated VTE Drug Contraindication: N/A - Med Ordered
[2024-04-03 15:15] VITALS: BP 138/74; PULSE 77; RESP 15; TEMP 36.7; O2SAT 95
[2024-04-03] MEDS: cefTRIAXone sodium 2 GM VIAL IVPUSH (15:48)
[2024-04-03 16:20] LABS: Glucose, Whole Blood 240 mg/dL (60-115)
[2024-04-03 19:00] VITALS: BP 145/65; PULSE 80; RESP 15; TEMP 36.2; O2SAT 94
[2024-04-03] MEDS: Tamsulosin HCL 0.4 MG CAPSULE PO (20:03)
[2024-04-03] MEDS: Atorvastatin Calcium 80 MG TABLET PO (20:03)
[2024-04-03 20:54] LABS: Glucose, Whole Blood 259 mg/dL (60-115)
[2024-04-03 23:31] VITALS: BP 153/82; PULSE 64; RESP 16; TEMP 36.1; O2SAT 98
[2024-04-04] VITALS (8 sets, daily range): BP systolic 144–174; BP diastolic 62–85; PULSE 74–86; RESP 14–18; TEMP 36.3–36.6; O2SAT 92–96
[2024-04-04] MEDS: Omeprazole 20 MG CAPSULE.DR PO (05:38)
[2024-04-04] MEDS: Fluticasone/Umeclidinium/Vilanterol 100/62.5/25 BLST.W.DEV 1 PUFF INHALE (07:59)
[2024-04-04 08:05] LABS: Glucose, Whole Blood 209 mg/dL (60-115)
[2024-04-04] MEDS: Insulin Lispro 100 UNIT/ML 3 ML VIAL SUBCUT ×4 (08:36→20:45)
[2024-04-04] MEDS: 0.9 % Sodium Chloride Flush 3 ML SYRINGE IVFLUSH ×3 (08:37→20:46)
[2024-04-04] MEDS: Losartan Potassium 50 MG TABLET PO (08:37)
[2024-04-04] MEDS: Escitalopram Oxalate 10 MG TABLET PO (08:37)
[2024-04-04] MEDS: Empagliflozin 10 MG TABLET PO (08:37)
[2024-04-04] MEDS: Cholecalciferol (Vitamin D3) 25 MCG TABLET PO (08:37)
[2024-04-04] MEDS: Metoprolol Succinate ER 50 MG TAB.ER.24H PO (08:37)
[2024-04-04] MEDS: Furosemide 40 MG TABLET PO (08:37)
[2024-04-04] MEDS: Gabapentin 600 MG TABLET PO ×2 (08:37→20:45)
[2024-04-04] MEDS: Apixaban 5 MG TABLET PO ×2 (09:03→20:46)
[2024-04-04 11:13] LABS: Glucose, Whole Blood 218 mg/dL (60-115)
--- NOTE | 2024-04-04 13:36 | P.DS_ITS ---
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 04/02/24 14:50 Consult to Infectious Diseases Routine Consulting Provider: [facility] Reason for consultation: bacteremia DS: Diagnosis Discharge Diagnosis (1) Fever and chills: Status: Acute DS: Summary Hospital Course Hospital Course: History and physical as per admitting provider. The patient is a 79-year-old male with a past medical history significant for multiple medical issues including heart failure with preserved ejection fraction, AFib, chronic lymphedema with venous stasis, cauda equina syndrome diagnosed in 2022 nonamb ulatory, chronic lower back pain, diabetes, AGNIESZKA who presented to the emergency room with complaints of sudden onset abdominal pain lasting for about 20 minutes, sharp in nature with associated vomitus x1. Shortly after this episode, the patient had shaking chills/rigors. Paramedics were called and the patient was brought to the emergency room. Prior to this episode, the patient and report that the patient was at his baseline self. In the emergency room patient was found to be febrile as high as 102.3. His blood work showed leukocytosis over 12. His chest x-ray is negative for acute findings. His initial lactate was greater than 2. On exam, the patient was noted to have bilateral lower extremity erythema, right greater than left. He was felt to be septic possibly due to lower extremity cellulitis and was treated with IV vancomycin and cefepime. He will now be admitted for further care and treatment. The patient is seen and examined in the emergency room around 08:45. He reports no abdominal or chest symptoms at this time. He reports that his right lower extremity feels a bit more painful than his left. 79-year-old man treated for severe sepsis secondary to right lower extremity cellulitis in the setting of chronic lymphedema/venous stasis. 1/2 blood cultures growing group B strep, treated with IV ceftriaxone. Last admission showed echocardiogram with no obvious vegetation. Seen evaluated by Infectious Disease with recommendation for imaging to right lower extremity to rule out homogeneous osteomyelitis.== Seen evaluated by wound care with recommendation for Lac-Hydrin to bilateral lower extremities, Lotrimin in between toes and feet for fungal treatment. Patient also had some complaints of abdominal pain prior to ED arrival that resolved very quickly. Abdominal ultrasound was not significant for any acute pathology. Diabetes mellitus. Continue home regimen Heart failure with preserved ejection fraction. Continue Lasix, epidural known, Jardiance and metoprolol Atrial fibrillation, paroxysmal. Continue metoprolol and Eliquis COPD. No exacerbation during hospitalization. Continue home inhalers Obstructive sleep apnea. CPAP at night Morbid obesity. BMI 62.4 with a history of lymphedema and venous stasis. Nonambulatory due to underlying cauda equina syndrome. Time Attestation Discharge Coordination Time (in mins): 42 Quality: Safe Use of Opioids Does Pt have an Active Cancer Diagnosis on the Problem List?: No Quality: Stroke Does the patient have a stroke diagnosis?: No Physical Exam Vital Signs: Vital Signs: Last Vital Signs Temp 97.8 F 04/04/24 11:44 Pulse 74 04/04/24 11:44 Resp 18 04/04/24 11:44 BP 169/74 H 04/04/24 11:44 Pulse Ox 92 04/04/24 11:44 O2 Del Method Room Air 04/04/24 11:44 O2 Flow Rate 2 04/01/24 06:32 Oxygen Flow Rate 2 04/01/24 04:41 BMI result Body Mass Index 62.4 Appearing in no acute distress head is normocephalic atraumatic eyes pupils are PERRLA sclera is anicteric mouth throat mucous membranes are intact and moist neck is supple no lymphadenopathy, no JVD noted lung sounds are clear to auscultation heart regular rate rhythm, clear S1, S2 positive bowel sounds, abdomen is soft, nontender neuro patient is alert x3, no focal deficits DS: Data Data Completed and Pending Labs on day of discharge: Laboratory Results - last 24 hr 04/03/24 04/03/24 04/04/24 16:17 20:46 07:59 POC Glucose 240 H 259 H 209 H 04/04/24 11:07 POC Glucose 218 H Preliminary micro results at discharge 04/01/24 05:08 Blood Culture - Preliminary Blood - Venous No growth after 48 hours. Discharge Plan Discharge Anticipated Discharge Date/Time: 04/06/24 08:20 Patient Disposition: Home Health Service Discharge Diagnosis: Severe sepsis Right lower extremity cellulitis Strep agalactiae Referrals: magalis rosenthal [Other] - 1 Week Rufus De Luna MD [Primary Care Provider] - 1 Week Discharge Medications: New cefuroxime axetil 500 mg tablet 500 mg PO BID Qty: 20 0RF Continued losartan 50 mg tablet 50 mg PO DAILY atorvastatin 80 mg tablet 80 mg PO BEDTIME gabapentin 600 mg tablet 600 mg PO BID citalopram 20 mg tablet 20 mg PO DAILY omeprazole 20 mg capsule,delayed release(DR/EC) 20 mg PO DAILY@0630 nystatin 100,000 unit/gram powder 1 appl topical BID PRN (Reason: abdominal rash) eplerenone 50 mg tablet 50 mg PO DAILY oxycodone 10 mg tablet 10 mg PO Q6H PRN (Reason: Moderate Pain (Scale Score 5-6)) Eliquis 5 mg tablet 5 mg PO BID Humulin R U-500 (Conc) Kwikpen 500 unit/mL (3 mL) insulin pen 40 unit subcut DAILY@1730 Trelegy Ellipta 100-62.5-25 mcg blister with device 1 ea inhalation DAILY docusate sodium 50 mg Capsule 50 mg PO Q6H PRN (Reason: WITH OXYCODONE) Rx Instructions: With oxycodone cholecalciferol (vitamin D3) 25 mcg (1,000 unit) Tablet 25 mcg PO DAILY triamcinolone acetonide 0.1 % cream 1 appl topical BID Jardiance 10 mg Tablet 10 mg PO DAILY Qty: 90 0RF furosemide 40 mg Tablet 40 mg PO DAILY Qty: 90 0RF Protocol: Hold for SBP< HOLD for SBP < : 90 metoprolol succinate 50 mg Tablet Extended Release 24 Hr 50 mg PO DAILY Qty: 90 0RF Protocol: Hold for SBP/HR < HOLD for SBP < : 90 HOLD for HR < : 60 tamsulosin 0.4 mg capsule 0.4 mg PO BEDTIME polyethylene glycol 3350 [Miralax] 17 gram/dose Powder 17 g PO DAILY PRN (Reason: Constipation) hydroxyzine pamoate 25 mg capsule 25 mg PO TID PRN (Reason: itch) albuterol sulfate 90 mcg/actuation Aerosol Powdr Breath Activated 2 inh INHALATION Q6H PRN (Reason: Shortness Of Breath Or Wheezing) Humulin R U-500 (Conc) Kwikpen 500 unit/mL (3 mL) insulin pen 40 unit subcut DAILY@0900 Discharge Orders: Discharge Order (Routine); Ordered 04/06/24 Ordered By: Estefany Cabello Diet: Advance to usual diet Activity on Discharge: As tolerated Stand Alone Forms: Patient Portal Discharge page Print Language: Thai Care Plan Goals: Complete course of antibiotics Health Concerns: Severe sepsis Right lower extremity cellulitis Strep agalactiae Plan of Treatment: Follow-up with primary care provider as needed Take all medications as prescribed Assessment: See discharge summary
--- NOTE | 2024-04-04 13:39 | P.PNIM_ITS ---
Subjective Subjective Date of Service: 04/04/24 Interval History: seen and examined this morning follow up for cellulitis, bacteremia no further abdominal pain or fever Review of Systems Review of Systems: Yes all other systems are reviewed and are negative Constitutional Constitutional: Denies chills and Denies fever(s) Physical Exam 2 Vital Signs: Vital Signs: Last Vital Signs Temp 97.8 F 04/04/24 11:44 Pulse 74 04/04/24 11:44 Resp 18 04/04/24 11:44 BP 169/74 H 04/04/24 11:44 Pulse Ox 92 04/04/24 11:44 O2 Del Method Room Air 04/04/24 11:44 O2 Flow Rate 2 04/01/24 06:32 Oxygen Flow Rate 2 04/01/24 04:41 BMI result Body Mass Index 62.4 Appearing in no acute distress lung sounds are clear to auscultation heart regular rate rhythm, clear S1, S2 positive bowel sounds, abdomen is soft, nontender neuro patient is alert x3, no focal deficits Objective Data Active Medications Acetaminophen (Acetaminophen 325 Mg Tablet) 650 mg PO Q6H PRN PRN Reason: Pain, Mild 1-3,fever,headache Apixaban (Apixaban 5 Mg Tablet) 5 mg PO BID [facility] Last Admin: 04/04/24 09:03 Dose: 5 mg Documented By: SANAM Atorvastatin Calcium (Atorvastatin Calcium 80 Mg Tablet) 80 mg PO BEDTIME [facility] Last Admin: 04/03/24 20:03 Dose: 80 mg Documented By: EDGAR Calcium Carbonate (Calcium Carbonate 750 Mg Tab.Chew) 750 mg PO Q4H PRN PRN Reason: Heartburn Last Admin: 04/01/24 22:24 Dose: 750 mg Documented By: ANGUS Ceftriaxone Sodium (Ceftriaxone Sodium 2 Gm Vial) 2 gm IVPUSH Q24H [facility] Last Admin: 04/03/24 15:48 Dose: 2 gm Documented By: MANJULA Empagliflozin (Empagliflozin 10 Mg Tablet) 10 mg PO DAILY [facility] Last Admin: 04/04/24 08:37 Dose: 10 mg Documented By: SANAM Escitalopram Oxalate (Escitalopram Oxalate 10 Mg Tablet) 10 mg PO DAILY [facility] Last Admin: 04/04/24 08:37 Dose: 10 mg Documented By: SANAM Fluticasone/Umeclidinium/Vilanterol (Fluticasone/Umeclidinium/Vilanterol 100/62.5/ Blst.W.Dev) 1 puff INHALE RDAILY [facility] Last Admin: 04/04/24 07:59 Dose: 1 puff Documented By: GENARO Furosemide (Furosemide 40 Mg Tablet) 40 mg PO DAILY [facility]; Protocol Last Admin: 04/04/24 08:37 Dose: 40 mg Documented By: SANAM Gabapentin (Gabapentin 600 Mg Tablet) 600 mg PO BID [facility] Last Admin: 04/04/24 08:37 Dose: 600 mg Documented By: SANAM Glucose (Glucose Gel 15 Gm Gel..Gram.) 15 gm PO Q15M PRN; Protocol PRN Reason: per Hypoglycemia Standing Ord. Hydroxyzine HCl (Hydroxyzine Hcl 25 Mg Tablet) 25 mg PO TID PRN PRN Reason: itch Last Admin: 04/03/24 20:09 Dose: 25 mg Documented By: EDGAR Dextrose (D10) 250 mls @ 750 mls/hr IV Q15M PRN; Protocol PRN Reason: per Hypoglycemia Standing Ord. Insulin Human Lispro (Insulin Lispro 100 Unit/Ml 3 Ml Vial) 0 unit SUBCUT QIDACHS [facility]; Protocol Last Admin: 04/04/24 12:18 Dose: 6 unit Documented By: SANAM Lactic Acid (Ammonium Lactate 12 % Lotion 226 Gm Bottle) 1 appl TOPICAL BID [facility]; Protocol Losartan Potassium (Losartan Potassium 50 Mg Tablet) 50 mg PO DAILY [facility]; Protocol Last Admin: 04/04/24 08:37 Dose: 50 mg Documented By: SANAM Magnesium Hydroxide (Milk Of Magnesia 30 Ml Oral.Susp) 30 ml PO DAILY PRN PRN Reason: Constipation Melatonin (Melatonin 3 Mg Tablet) 6 mg PO BEDTIME PRN PRN Reason: Insomnia Metoprolol Succinate (Metoprolol Succinate Er 50 Mg Tab.Er.24h) 50 mg PO DAILY [facility]; Protocol Last Admin: 04/04/24 08:37 Dose: 50 mg Documented By: SANAM Non-Formulary Medication (Eplerenone) 50 mg PO DAILY [facility] Omeprazole (Omeprazole 20 Mg Capsule.Dr) 20 mg PO DAILY@0630 [facility] Last Admin: 04/04/24 05:38 Dose: 20 mg Documented By: EDGAR Ondansetron HCl (Ondansetron Hcl 4 Mg/2 Ml Vial) 4 mg IVPUSH Q8H PRN PRN Reason: Nausea and Vomiting Last Admin: 04/01/24 17:23 Dose: 4 mg Documented By: JAVIER Oxycodone HCl (Oxycodone Hcl Immed Release 5 Mg Tablet) 10 mg PO Q6H PRN PRN Reason: Pain, Moderate(Pain Scale 4-6) Polyethylene Glycol (Polyethylene Glycol 3350 17 Gm Powd.Pack) 17 gm PO DAILY PRN PRN Reason: Constipation Sodium Chloride (0.9 % Sodium Chloride Flush 3 Ml Syringe) 3 ml IVFLUSH QSHIFT [facility] Last Admin: 04/04/24 08:37 Dose: 3 ml Documented By: SANAM Tamsulosin HCl (Tamsulosin Hcl 0.4 Mg Capsule) 0.4 mg PO BEDTIME [facility] Last Admin: 04/03/24 20:03 Dose: 0.4 mg Documented By: EDGAR Vitamin D (Cholecalciferol (Vitamin D3) 25 Mcg Tablet) 25 mcg PO DAILY [facility] Last Admin: 04/04/24 08:37 Dose: 25 mcg Documented By: SANAM Labs 04/02/24 05:59 04/03/24 05:36 Labs: Laboratory Results - last 24 hr 04/03/24 04/03/24 04/04/24 16:17 20:46 07:59 POC Glucose 240 H 259 H 209 H 04/04/24 11:07 POC Glucose 218 H Assessment and Plan (1) Fever and chills: Status: Acute Plan 79 yo M with multiple medical problems presenting with sudden onset abd. pain followed by vomiting and shaking chills/rigors. Found to be septic with concerns over bacteremia. Will be admitted for further evaluation and treatment. 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 Fib cotinue metoprolol + eliquis COPD continue baseline inhalers AGNIESZKA cpap at night morbid obesity with chronic lymphedema / venous stasis wound care weight loss encouraged non ambulatory due to underlying cauda equina syndrome DNR/DNI Attending Dr. Santillan DVT eliquis Requires ongoing inpatient stay for management of bacteremia, cellulitis with IV antibiotics and specialist evaluation Quality Stroke Does the patient have a stroke diagnosis?: No VTE Prior VTE?: No VTE Risk Level:: Medical - moderate - high VTE Device Contraindication: Treatment Not Tolerated VTE Drug Contraindication: N/A - Med Ordered
[2024-04-04] MEDS: Ammonium Lactate 12 % Lotion 226 GM BOTTLE 1 APPL TOPICAL ×2 (14:36→20:48)
[2024-04-04] MEDS: cefTRIAXone sodium 2 GM VIAL IVPUSH (14:36)
--- NOTE | 2024-04-04 15:33 | MHC.CM.PN ---
PER ROUNDS PT MAY DC TODA .DC PLAN REMAINS HOME
--- NOTE | 2024-04-04 16:32 | HO.WOUND ---
Wound Consult: Initial 79yr old Male? admitted to [facility] on 04/01/24 - See progress notes and H&P for detailed history.? Wound consult placed for Bilateral Lower Leg wound.? Patient agreeable to assessment and photo documentation.? Details from last assessment while inpatient: there seems to be poor follow up outpatient carlin since patient has difficulty getting to and from appointments. patient reports he was advised to wear compression and advised outpt follow up and topical treatments. She reports they did not follow up with many of the recommended treatments due to the treatments not working . Attempted to provide Lymphedema treatment education - however patients reported she felt that wasnt the cause of his leg swelling nor chronic wound development. Recommend lymphedema clinic / Dr. Avendano follow up for pump evaluation and consider Dermatology outpt follow up for etiology diagnosis. Right Leg Left Leg Bilateral Lower Legs Etiology: Venous dermatitis with no open wounds noted Wound Bed: dry thick flaking epidermal layers Drainage / Odor: None Edges: ? irregular Lisset wound: Hemosiderin staining evidence of significant previous swelling - No Induration, Fluctuance noted Pain: patient reports pain with elevation Goals of Treatment: ? Elevate lower legs - Continue with lachydrin cream as ordered Recommendations: 1. Turn and Reposition every 2 hours and as needed for patient comfort.? Use pillows or wedges to support off loading positions. 2. Off Load all bony prominences with use of pillows and heel boots if needed.? Apply Preventative foams where needed. ? 3. Monitor for incontinence and moisture control, use barrier creams when needed for prevention and treatment. 4. Provide adequate and supplemental nutrition.? 5. Continue low air loss mattress. 6. When applicable maintain blood glucose levels per Providers order. 7. Bilateral Lower Legs - Elevate lower legs off of surface of bed with use of pillows.? Cleanse with [place], Pat dry.? Apply Lac-Hydrin as ordered. May Apply vaseline to lower legs to hydrate and keep skin supple after Lachydrin is absorbed. Re-consult wound care Nurse for wound deterioration or wound changes.
[2024-04-04 16:37] LABS: Glucose, Whole Blood 249 mg/dL (60-115)
--- NOTE | 2024-04-04 16:39 | W.PM.IDCN ---
History of Present Illness Data of Consult Service Date: 04/04/24 Requesting physician: Estefany Cabello Primary Care Provider: Rufus De Luna MD HPI Reason for consult: recurrent Group B strep cellulitis He presents with fever and chills and temperature 103.2 He has abdominal discomfort as well. He has Group B strep bacteremia. I had seen him 03/07 with Group B strep bacteremia as well. He had chronic RLE wound dressed by VNA. Review of Systems Review of Systems: Yes all other systems are reviewed and are negative [facility] Past Medical History Medical History Persistent atrial fibrillation Acute CHF Sepsis Abdominal pain COPD (chronic obstructive pulmonary disease) Acute hypoxemic respiratory failure Bacteremia Paroxysmal A-fib Cauda equina compression CHF (congestive heart failure) Family History Family history: reviewed and not pertinent Social History Social History Household Members: Spouse Housing: Apartment Do you presently have visiting nurse or other home services: Yes Unable to assess alcohol history related to: Unknown Alcohol intake: never Patient Tobacco Use Status: Never used Tobacco Advance Directives Date on File: 04/21/23 service: No Meds Allergies Allergy/AdvReac Type Severity Reaction Status Date / Time No Known Allergies Allergy Verified 04/01/24 04:45 Active Medications: Current Medications Acetaminophen (Acetaminophen 325 Mg Tablet) 650 mg PO Q6H PRN PRN Reason: Pain, Mild 1-3,fever,headache Apixaban (Apixaban 5 Mg Tablet) 5 mg PO BID [facility] Last Admin: 04/04/24 09:03 Dose: 5 mg Atorvastatin Calcium (Atorvastatin Calcium 80 Mg Tablet) 80 mg PO BEDTIME [facility] Last Admin: 04/03/24 20:03 Dose: 80 mg Calcium Carbonate (Calcium Carbonate 750 Mg Tab.Chew) 750 mg PO Q4H PRN PRN Reason: Heartburn Last Admin: 04/01/24 22:24 Dose: 750 mg Ceftriaxone Sodium (Ceftriaxone Sodium 2 Gm Vial) 2 gm IVPUSH Q24H [facility] Last Admin: 04/04/24 14:36 Dose: 2 gm Empagliflozin (Empagliflozin 10 Mg Tablet) 10 mg PO DAILY [facility] Last Admin: 04/04/24 08:37 Dose: 10 mg Escitalopram Oxalate (Escitalopram Oxalate 10 Mg Tablet) 10 mg PO DAILY [facility] Last Admin: 04/04/24 08:37 Dose: 10 mg Fluticasone/Umeclidinium/Vilanterol (Fluticasone/Umeclidinium/Vilanterol 100/62.5/ Blst.W.Dev) 1 puff INHALE RDAILY [facility] Last Admin: 04/04/24 07:59 Dose: 1 puff Furosemide (Furosemide 40 Mg Tablet) 40 mg PO DAILY [facility]; Protocol Last Admin: 04/04/24 08:37 Dose: 40 mg Gabapentin (Gabapentin 600 Mg Tablet) 600 mg PO BID [facility] Last Admin: 04/04/24 08:37 Dose: 600 mg Glucose (Glucose Gel 15 Gm Gel..Gram.) 15 gm PO Q15M PRN; Protocol PRN Reason: per Hypoglycemia Standing Ord. Hydroxyzine HCl (Hydroxyzine Hcl 25 Mg Tablet) 25 mg PO TID PRN PRN Reason: itch Last Admin: 04/03/24 20:09 Dose: 25 mg Dextrose (D10) 250 mls @ 750 mls/hr IV Q15M PRN; Protocol PRN Reason: per Hypoglycemia Standing Ord. Insulin Human Lispro (Insulin Lispro 100 Unit/Ml 3 Ml Vial) 0 unit SUBCUT QIDACHS [facility]; Protocol Last Admin: 04/04/24 12:18 Dose: 6 unit Lactic Acid (Ammonium Lactate 12 % Lotion 226 Gm Bottle) 1 appl TOPICAL BID [facility]; Protocol Last Admin: 04/04/24 14:36 Dose: 1 appl Losartan Potassium (Losartan Potassium 50 Mg Tablet) 50 mg PO DAILY [facility]; Protocol Last Admin: 04/04/24 08:37 Dose: 50 mg Magnesium Hydroxide (Milk Of Magnesia 30 Ml Oral.Susp) 30 ml PO DAILY PRN PRN Reason: Constipation Melatonin (Melatonin 3 Mg Tablet) 6 mg PO BEDTIME PRN PRN Reason: Insomnia Metoprolol Succinate (Metoprolol Succinate Er 50 Mg Tab.Er.24h) 50 mg PO DAILY [facility]; Protocol Last Admin: 04/04/24 08:37 Dose: 50 mg Non-Formulary Medication (Eplerenone) 50 mg PO DAILY [facility] Omeprazole (Omeprazole 20 Mg Capsule.Dr) 20 mg PO DAILY@0630 [facility] Last Admin: 04/04/24 05:38 Dose: 20 mg Ondansetron HCl (Ondansetron Hcl 4 Mg/2 Ml Vial) 4 mg IVPUSH Q8H PRN PRN Reason: Nausea and Vomiting Last Admin: 04/01/24 17:23 Dose: 4 mg Oxycodone HCl (Oxycodone Hcl Immed Release 5 Mg Tablet) 10 mg PO Q6H PRN PRN Reason: Pain, Moderate(Pain Scale 4-6) Polyethylene Glycol (Polyethylene Glycol 3350 17 Gm Powd.Pack) 17 gm PO DAILY PRN PRN Reason: Constipation Sodium Chloride (0.9 % Sodium Chloride Flush 3 Ml Syringe) 3 ml IVFLUSH QSHIFT [facility] Last Admin: 04/04/24 08:37 Dose: 3 ml Tamsulosin HCl (Tamsulosin Hcl 0.4 Mg Capsule) 0.4 mg PO BEDTIME [facility] Last Admin: 04/03/24 20:03 Dose: 0.4 mg Vitamin D (Cholecalciferol (Vitamin D3) 25 Mcg Tablet) 25 mcg PO DAILY [facility] Last Admin: 04/04/24 08:37 Dose: 25 mcg Home Medications ?Medication ?Instructions ?Recorded ?Confirmed ?Last Taken ?Type apixaban 5 mg tablet (Eliquis) 5 mg PO BID 03/26/23 04/01/24 03/31/24 History atorvastatin 80 mg tablet 80 mg PO BEDTIME 03/26/23 04/01/24 03/31/24 History cholecalciferol (vitamin D3) 25 25 mcg PO DAILY 03/26/23 04/01/24 03/31/24 History mcg (1,000 unit) tablet citalopram 20 mg tablet 20 mg PO DAILY 03/26/23 04/01/24 03/31/24 History docusate sodium 50 mg capsule 50 mg PO Q6H PRN WITH OXYCODONE 03/26/23 04/01/24 03/04/24 History eplerenone 50 mg tablet 50 mg PO DAILY 03/26/23 04/01/24 03/31/24 History fluticasone fur. 100 mcg-umeclid 1 ea inhalation DAILY 03/26/23 04/01/24 03/31/24 History 62.5 mcg-vilant 25 mcg inhalat.powder (Trelegy Ellipta) gabapentin 600 mg tablet 600 mg PO BID 03/26/23 04/01/24 03/31/24 History insulin regular hum U-500 conc 500 40 unit subcut DAILY@1730 01/18/24 01/24/25 01/23/25 History unit/mL(3 mL) subcut pen (Humulin R U-500 (Conc) Insulin Kwikpen) losartan 50 mg tablet 50 mg PO DAILY 03/26/23 04/01/24 03/31/24 History nystatin 100,000 unit/gram topical 1 appl topical BID PRN abdominal 03/26/23 04/01/24 03/26/23 History powder rash omeprazole 20 mg capsule,delayed 20 mg PO DAILY@0630 03/26/23 04/01/24 03/31/24 History release oxycodone 10 mg tablet 10 mg PO Q6H PRN Moderate Pain 03/26/23 04/01/24 11/07/23 History (Scale Score 5-6) albuterol sulfate 90 mcg/actuation 2 inh inhalation Q6H PRN Shortness 11/08/23 04/01/24 Unknown History breath activated powder inhaler Of Breath Or Wheezing hydroxyzine pamoate 25 mg capsule 25 mg PO TID PRN itch 11/08/23 04/01/24 Unknown History insulin regular hum U-500 conc 500 40 unit subcut DAILY@0900 11/08/23 04/01/24 03/31/24 History unit/mL(3 mL) subcut pen (Humulin R U-500 (Conc) Insulin Kwikpen) polyethylene glycol 3350 17 17 g PO DAILY PRN Constipation 11/08/23 04/01/24 03/04/24 History gram/dose oral powder (Miralax) tamsulosin 0.4 mg capsule 0.4 mg PO BEDTIME 11/08/23 04/01/24 03/31/24 History triamcinolone acetonide 0.1 % 1 appl topical BID 03/05/24 04/01/24 03/31/24 History topical cream Physical Exam Vital Signs: Vital Signs: Last Vital Signs Temp 97.7 F 04/04/24 15:38 Pulse 81 04/04/24 15:38 Resp 18 04/04/24 15:38 BP 152/62 H 04/04/24 15:38 Pulse Ox 94 04/04/24 15:38 O2 Del Method Room Air 04/04/24 15:38 O2 Flow Rate 2 04/01/24 06:32 Oxygen Flow Rate 2 04/01/24 04:41 BMI result Body Mass Index 62.4 Const: General: cooperative HEENT: Head: Yes normal to inspection Face and sinus: Yes normal facial exam Mouth: Normal oral and palatal mucosa present Teeth and gingiva: dentition normal Eyes: General: appearance normal, both eyes and all related structures Pupils: Equal, round and reactive pupils present Resp: Effort & Inspection: normal respiratory effort Cardio: Rate: regular rate Rhythm: regular rhythm GI: Palpation (GI): Soft to palpation and nontender : General: Yes no CVA tenderness Back/Spine/Pelvis: Back: no CVA tenderness Skin: General skin exam: no rashes or lesions noted Neuro: General: moves all extremities Cranial nerves: Yes Equal, round and reactive pupils present Extrem: Other: RLE redness and exudate,2 toe dark Psych: Appearance: grossly normal Results Labs 04/02/24 05:59 04/03/24 05:36 Microbiology Microbiology Results: Microbiology 04/01/24 05:08 Blood - Venous Blood Culture - Preliminary No growth after 48 hours. 04/01/24 05:14 Blood - Venous Blood Culture - Final Strep agalactiae (Grp B) Assessment and Plan (1) Wound of right leg: Status: Acute (2) Fever and chills: Status: Acute (3) Bacteremia due to group B Streptococcus: Status: Acute Plan Would continue Ceftriaxone 2 g daily IV, prob 6 wk if OM Would check MRI of leg and foot evaluate osteomyelitis especially 2,3 toes. interdigital lotrimin cream.
[2024-04-04 20:06] LABS: Glucose, Whole Blood 273 mg/dL (60-115)
[2024-04-04] MEDS: Tamsulosin HCL 0.4 MG CAPSULE PO (20:45)
[2024-04-04] MEDS: Atorvastatin Calcium 80 MG TABLET PO (20:45)
[2024-04-04] MEDS: hydrOXYzine HCL 25 MG TABLET PO (20:53)
[2024-04-05] VITALS (7 sets, daily range): BP systolic 152–168; BP diastolic 70–102; PULSE 64–95; RESP 16–20; TEMP 36.2–36.9; O2SAT 92–97
[2024-04-05] MEDS: Omeprazole 20 MG CAPSULE.DR PO (05:29)
[2024-04-05 07:25] LABS: Glucose, Whole Blood 226 mg/dL (60-115)
[2024-04-05] MEDS: Furosemide 40 MG TABLET PO (07:42)
[2024-04-05] MEDS: Insulin Lispro 100 UNIT/ML 3 ML VIAL SUBCUT ×4 (07:42→22:13)
[2024-04-05] MEDS: Apixaban 5 MG TABLET PO ×2 (07:43→22:13)
[2024-04-05] MEDS: Cholecalciferol (Vitamin D3) 25 MCG TABLET PO (07:43)
[2024-04-05] MEDS: Empagliflozin 10 MG TABLET PO (07:44)
[2024-04-05] MEDS: Metoprolol Succinate ER 50 MG TAB.ER.24H PO (07:44)
[2024-04-05] MEDS: 0.9 % Sodium Chloride Flush 3 ML SYRINGE IVFLUSH ×3 (07:44→22:18)
[2024-04-05] MEDS: Gabapentin 600 MG TABLET PO ×2 (07:44→22:13)
[2024-04-05] MEDS: Losartan Potassium 50 MG TABLET PO (07:44)
[2024-04-05] MEDS: Escitalopram Oxalate 10 MG TABLET PO (07:44)
[2024-04-05] MEDS: Ammonium Lactate 12 % Lotion 226 GM BOTTLE 1 APPL TOPICAL ×2 (07:45→22:12)
[2024-04-05] MEDS: Fluticasone/Umeclidinium/Vilanterol 100/62.5/25 BLST.W.DEV 1 PUFF INHALE (08:43)
[2024-04-05 11:15] LABS: Glucose, Whole Blood 256 mg/dL (60-115)
[2024-04-05] MEDS: Clotrimazole 1 % Cream 15 GM TUBE 1 APPL TOPICAL ×2 (12:10→22:14)
[2024-04-05] MEDS: cefTRIAXone sodium 2 GM VIAL IVPUSH (14:02)
--- NOTE | 2024-04-05 14:48 | P.PNIM_ITS ---
Subjective Subjective Date of Service: 04/05/24 Interval History: seen and examined this morning follow up for cellulitis, bacteremia no further abdominal pain or fever Review of Systems Review of Systems: Yes all other systems are reviewed and are negative Constitutional Constitutional: Denies chills and Denies fever(s) Physical Exam 2 Vital Signs: Vital Signs: Last Vital Signs Temp 97.3 F 04/05/24 11:57 Pulse 66 04/05/24 11:57 Resp 18 04/05/24 11:57 BP 164/102 H 04/05/24 11:57 Pulse Ox 94 04/05/24 11:57 O2 Del Method Room Air 04/05/24 11:57 O2 Flow Rate 2 04/01/24 06:32 Oxygen Flow Rate 2 04/01/24 04:41 BMI result Body Mass Index 62.4 Appearing in no acute distress head is normocephalic atraumatic eyes pupils are PERRLA sclera is anicteric mouth throat mucous membranes are intact and moist neck is supple no lymphadenopathy, no JVD noted lung sounds are clear to auscultation heart regular rate rhythm, clear S1, S2 positive bowel sounds, abdomen is soft, nontender neuro patient is alert x3, no focal deficits Objective Data Active Medications Acetaminophen (Acetaminophen 325 Mg Tablet) 650 mg PO Q6H PRN PRN Reason: Pain, Mild 1-3,fever,headache Apixaban (Apixaban 5 Mg Tablet) 5 mg PO BID [facility] Last Admin: 04/05/24 07:43 Dose: 5 mg Documented By: SANAM Atorvastatin Calcium (Atorvastatin Calcium 80 Mg Tablet) 80 mg PO BEDTIME [facility] Last Admin: 04/04/24 20:45 Dose: 80 mg Documented By: EDGAR Calcium Carbonate (Calcium Carbonate 750 Mg Tab.Chew) 750 mg PO Q4H PRN PRN Reason: Heartburn Last Admin: 04/01/24 22:24 Dose: 750 mg Documented By: ANGUS Ceftriaxone Sodium (Ceftriaxone Sodium 2 Gm Vial) 2 gm IVPUSH Q24H [facility] Last Admin: 04/05/24 14:02 Dose: 2 gm Documented By: SANAM Clotrimazole (Clotrimazole 1 % Cream 15 Gm Tube) 1 appl TOPICAL BID [facility]; Protocol Last Admin: 04/05/24 12:10 Dose: 1 appl Documented By: SANAM Empagliflozin (Empagliflozin 10 Mg Tablet) 10 mg PO DAILY [facility] Last Admin: 04/05/24 07:44 Dose: 10 mg Documented By: SANAM Escitalopram Oxalate (Escitalopram Oxalate 10 Mg Tablet) 10 mg PO DAILY [facility] Last Admin: 04/05/24 07:44 Dose: 10 mg Documented By: SANAM Fluticasone/Umeclidinium/Vilanterol (Fluticasone/Umeclidinium/Vilanterol 100/62.5/25 Blst.W.Dev) 1 puff INHALE RDAILY [facility] Last Admin: 04/05/24 08:43 Dose: 1 puff Documented By: GENARO Furosemide (Furosemide 40 Mg Tablet) 40 mg PO DAILY [facility]; Protocol Last Admin: 04/05/24 07:42 Dose: 40 mg Documented By: SANAM Gabapentin (Gabapentin 600 Mg Tablet) 600 mg PO BID [facility] Last Admin: 04/05/24 07:44 Dose: 600 mg Documented By: SANAM Glucose (Glucose Gel 15 Gm Gel..Gram.) 15 gm PO Q15M PRN; Protocol PRN Reason: per Hypoglycemia Standing Ord. Hydroxyzine HCl (Hydroxyzine Hcl 25 Mg Tablet) 25 mg PO TID PRN PRN Reason: itch Last Admin: 04/04/24 20:53 Dose: 25 mg Documented By: EDGAR Dextrose (D10) 250 mls @ 750 mls/hr IV Q15M PRN; Protocol PRN Reason: per Hypoglycemia Standing Ord. Insulin Human Lispro (Insulin Lispro 100 Unit/Ml 3 Ml Vial) 0 unit SUBCUT QIDACHS [facility]; Protocol Last Admin: 04/05/24 12:00 Dose: 8 unit Documented By: SANAM Lactic Acid (Ammonium Lactate 12 % Lotion 226 Gm Bottle) 1 appl TOPICAL BID [facility]; Protocol Last Admin: 04/05/24 07:45 Dose: 1 appl Documented By: SANAM Losartan Potassium (Losartan Potassium 50 Mg Tablet) 50 mg PO DAILY [facility]; Protocol Last Admin: 04/05/24 07:44 Dose: 50 mg Documented By: SANAM Magnesium Hydroxide (Milk Of Magnesia 30 Ml Oral.Susp) 30 ml PO DAILY PRN PRN Reason: Constipation Melatonin (Melatonin 3 Mg Tablet) 6 mg PO BEDTIME PRN PRN Reason: Insomnia Metoprolol Succinate (Metoprolol Succinate Er 50 Mg Tab.Er.24h) 50 mg PO DAILY [facility]; Protocol Last Admin: 04/05/24 07:44 Dose: 50 mg Documented By: SANAM Omeprazole (Omeprazole 20 Mg Capsule.) 20 mg PO DAILY@0630 [facility] Last Admin: 04/05/24 05:29 Dose: 20 mg Documented By: EDGAR Ondansetron HCl (Ondansetron Hcl 4 Mg/2 Ml Vial) 4 mg IVPUSH Q8H PRN PRN Reason: Nausea and Vomiting Last Admin: 04/01/24 17:23 Dose: 4 mg Documented By: JAVIER Oxycodone HCl (Oxycodone Hcl Immed Release 5 Mg Tablet) 10 mg PO Q6H PRN PRN Reason: Pain, Moderate(Pain Scale 4-6) Polyethylene Glycol (Polyethylene Glycol 3350 17 Gm Powd.Pack) 17 gm PO DAILY PRN PRN Reason: Constipation Sodium Chloride (0.9 % Sodium Chloride Flush 3 Ml Syringe) 3 ml IVFLUSH QSHIFT [facility] Last Admin: 04/05/24 07:44 Dose: 3 ml Documented By: SANAM Tamsulosin HCl (Tamsulosin Hcl 0.4 Mg Capsule) 0.4 mg PO BEDTIME [facility] Last Admin: 04/04/24 20:45 Dose: 0.4 mg Documented By: EDGAR Vitamin D (Cholecalciferol (Vitamin D3) 25 Mcg Tablet) 25 mcg PO DAILY [facility] Last Admin: 04/05/24 07:43 Dose: 25 mcg Documented By: SANAM Labs 04/02/24 05:59 04/03/24 05:36 Labs: Laboratory Results - last 24 hr 04/04/24 04/04/24 04/05/24 16:30 19:55 07:18 POC Glucose 249 H 273 H 226 H 04/05/24 11:09 POC Glucose 256 H Assessment and Plan (1) Fever and chills: Status: Acute Plan 79 yo M with multiple medical problems presenting with sudden onset abd. pain followed by vomiting and shaking chills/rigors. Found to be septic with concerns over bacteremia. Will be admitted for further evaluation and treatment. 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 Fib continue metoprolol + eliquis COPD continue baseline inhalers AGNIESZKA cpap at night morbid obesity with chronic lymphedema / venous stasis wound care weight loss encouraged non ambulatory due to underlying cauda equina syndrome DNR/DNI Attending Dr. Santillan DVT eliquis Requires ongoing inpatient stay for management of bacteremia, cellulitis with IV antibiotics and specialist evaluation Quality Stroke Does the patient have a stroke diagnosis?: No VTE Prior VTE?: No VTE Risk Level:: Medical - moderate - high VTE Device Contraindication: Treatment Not Tolerated VTE Drug Contraindication: N/A - Med Ordered
[2024-04-05 16:13] LABS: Glucose, Whole Blood 273 mg/dL (60-115)
[2024-04-05 20:14] LABS: Glucose, Whole Blood 303 mg/dL (60-115)
[2024-04-05] MEDS: gadobutroL 10 ML VIAL IVPUSH (21:06)
[2024-04-05] MEDS: Atorvastatin Calcium 80 MG TABLET PO (22:13)
[2024-04-05] MEDS: Tamsulosin HCL 0.4 MG CAPSULE PO (22:13)
[2024-04-05] MEDS: hydrOXYzine HCL 25 MG TABLET PO (22:17)
[2024-04-06] VITALS (7 sets, daily range): BP systolic 139–169; BP diastolic 72–96; PULSE 74–83; RESP 16–20; TEMP 36.3–36.8; O2SAT 94–97
[2024-04-06] MEDS: Omeprazole 20 MG CAPSULE.DR PO (05:56)
[2024-04-06 07:37] LABS: Glucose, Whole Blood 244 mg/dL (60-115)
[2024-04-06] MEDS: Cholecalciferol (Vitamin D3) 25 MCG TABLET PO (07:52)
[2024-04-06] MEDS: Furosemide 40 MG TABLET PO (07:52)
[2024-04-06] MEDS: Metoprolol Succinate ER 50 MG TAB.ER.24H PO (07:52)
[2024-04-06] MEDS: Insulin Lispro 100 UNIT/ML 3 ML VIAL SUBCUT ×2 (07:52→11:41)
[2024-04-06] MEDS: Losartan Potassium 50 MG TABLET PO (07:53)
[2024-04-06] MEDS: Empagliflozin 10 MG TABLET PO (07:53)
[2024-04-06] MEDS: Escitalopram Oxalate 10 MG TABLET PO (07:53)
[2024-04-06] MEDS: Ammonium Lactate 12 % Lotion 226 GM BOTTLE 1 APPL TOPICAL (07:53)
[2024-04-06] MEDS: 0.9 % Sodium Chloride Flush 3 ML SYRINGE IVFLUSH (07:53)
[2024-04-06] MEDS: Gabapentin 600 MG TABLET PO (07:53)
[2024-04-06] MEDS: Clotrimazole 1 % Cream 15 GM TUBE 1 APPL TOPICAL (07:53)
[2024-04-06 08:06] LABS: Creatinine Clr Calc Pharmacy 82.3; Estimated Glomerular Filt Rate > 60
--- NOTE | 2024-04-06 09:26 | MHC.CM.PN ---
pt dcd today will go be amb at 2 pt active cd vna who have been notified of dc
[2024-04-06] MEDS: Apixaban 5 MG TABLET PO (09:51)
[2024-04-06 11:24] LABS: Glucose, Whole Blood 257 mg/dL (60-115)
--- NOTE | 2024-04-06 14:31 | P.CDIM_ITS ---
PROVIDER RESPONSE TEXT: To clarify, the appropriate diagnosis supported by the clinical indicators: Cellulitis due to Venous stasis QUERY TEXT: PHYSICIAN'S DOCUMENTATION REQUEST Date of Query: 04/05/2024 10:48 AM EST Patient Name: Sam Meier Admit Date: 04/01/2024 Dear Estefany Cabello CAPACITY MANAGEMENT SPECIALIST, A review of the medical record indicates additional documentation may be needed. Please review below and update the documentation accordingly. Clinical Indicators: cellulitis RLE in the setting of chronic lymphedema/venous stasis PMH: DM2, chronic lymphedema, venous stasis Per wound note: venous dermatitis with no open wounds Based on the above, could you please provide further information regarding the cause of the celluliti s: Cellulitis due to Diabetes Cellulitis due to Venous stasis Other (explain) Clinically unable to determine (explain) Thank you, Binta Pereyra RN Use of terms such as suspected, likely, concern for, or probable (associated with a specific diagnosi s that is being evaluated, monitored, or treated as if it exists) are acceptable and can be coded in the inpatient se tting, when documented at the time of discharge. Please use your independent medical judgment in providing your response. THIS QUERY IS PART OF THE PERMANENT MEDICAL RECORD
--- NOTE | 2024-04-06 15:29 | P.F2F_ITS ---
Service Date Service Date: 04/06/24 Encounter Date of encounter: 04/06/24 Reasons for Services Signs and symptoms assessed: Cellulitis Reason for mcfp: CV/CP assess and/or care Reason for physical therapy: home safety and mobility Homebound: Leaving the home is medically contraindicated at this time without the asist of a device and/or another person due th the listed conditions above and below. Reason homebound: bedbound/chairbound Certification: Based on the above findings, I certify that this patient is confined to the home and needs intermittent mcfp care, physical therapy and/or speech therapy, or continues to need occupational therapy. The patient is under my care, and I have initiated the establishment of the plan of care. The patient will be followed by a physician who will periodically review the plan of care. Time Spent With Patient Time: Total time managing care of this patient today ____ minutes.
[2024-04-06 16:32] LABS: Glucose, Whole Blood 221 mg/dL (60-115)
== END 2024-04-06 16:48 | disposition home health service (06) | DRG 872 ==
LOC: HO.ED 07:47 → HO.EDOVER 09:11 → HO.S3 19:37
PROVIDERS: Physician Assistant Medical; Admitting Provider Family Medicine; Emergency Provider Emergency Medicine; PCP Internal Medicine; Visit Provider Nurse Practitioner Acute Care
DX: A41.9 Sepsis, unspecified organism (principal); I50.32 Chronic diastolic (congestive) heart failure; L03.115 Cellulitis of right lower limb; Z68.44 Body mass index [BMI] 60.0-69.9, adult; G83.4 Cauda equina syndrome; I48.0 Paroxysmal atrial fibrillation; E11.9 Type 2 diabetes mellitus without complications; I87.8 Other specified disorders of veins; I89.0 Lymphedema, not elsewhere classified; R65.20 Severe sepsis without septic shock; J44.9 Chronic obstructive pulmonary disease, unspecified; Z66 Do not resuscitate; B95.1 Streptococcus, group B, as the cause of diseases classified elsewhere; E66.01 Morbid (severe) obesity due to excess calories; Z20.822 Contact with and (suspected) exposure to COVID-19; Z79.4 Long term (current) use of insulin; Z79.01 Long term (current) use of anticoagulants; Z79.899 Other long term (current) drug therapy
CPT/HCPCS: 0241U; 36415; 71045; 73620; 73720; 76700; 80048; 80053; 80076; 80202; 81001; 82565; 82803; 82947; 83605; 83690; 83735; 83880; 85025; 85027; 86140; 87040; 87077; 87205; 93005; 94640; 97162; 99285; A9585; J0131; J0692; J0696; J2405; J3370

== ENCOUNTER → 2024-04-01 04:51 | Outpatient (BNV) | payer MEDICARE, SELFPAY | PROVIDERS: Admitting Provider Family Medicine; Emergency Provider Emergency Medicine; Visit Provider Internal Medicine Cardiovascular Disease | DX: I48.91 Unspecified atrial fibrillation (principal) | CPT/HCPCS: 93010 ==

== ENCOUNTER → 2024-04-01 04:52 | Outpatient (BNV) | payer MEDICARE, SELFPAY | PROVIDERS: Emergency Provider Emergency Medicine; Visit Provider Specialist | DX: R53.81 Other malaise (principal); R11.2 Nausea with vomiting, unspecified | CPT/HCPCS: 71045 ==

== ENCOUNTER 2024-04-01 08:54 | Outpatient (BNV) | payer MEDICARE, SELFPAY | END 2024-04-05 16:30 | PROVIDERS: Admitting Provider Family Medicine; Emergency Provider Emergency Medicine; PCP Internal Medicine; Visit Provider Radiology Diagnostic Radiology | DX: M85.871 Other specified disorders of bone density and structure, right ankle and foot (principal) | CPT/HCPCS: 73620 ==

== ENCOUNTER 2024-04-01 08:54 | Outpatient (BNV) | payer MEDICARE, SELFPAY | END 2024-04-03 08:33 | PROVIDERS: Admitting Provider Family Medicine; Emergency Provider Emergency Medicine; Visit Provider Radiology Diagnostic Radiology | DX: N28.1 Cyst of kidney, acquired (principal) | CPT/HCPCS: 76700 ==

== ENCOUNTER → 2024-04-01 08:54 | Outpatient (BNV) | payer MEDICARE, SELFPAY | PROVIDERS: Admitting Provider Family Medicine; Emergency Provider Emergency Medicine; PCP Internal Medicine; Visit Provider Internal Medicine | DX: S81.801A Unspecified open wound, right lower leg, initial encounter (principal); R50.9 Fever, unspecified; R78.81 Bacteremia; B95.1 Streptococcus, group B, as the cause of diseases classified elsewhere | CPT/HCPCS: 99222 ==

== ENCOUNTER → 2024-04-01 08:54 | Outpatient (BNV) | payer MEDICARE, SELFPAY | PROVIDERS: Admitting Provider Family Medicine; Emergency Provider Emergency Medicine; Visit Provider Physician Assistant Medical | DX: R50.9 Fever, unspecified (principal) | CPT/HCPCS: 99232; 99233; 99239 ==

== ENCOUNTER 2025-02-10 18:02 | Inpatient (IN) | payer MEDICARE, SELFPAY ==
--- OUTSIDE RECORDS SUMMARY | 2025-02-06 10:15 | XMS_ITS | Encounter Summary ---
Author Organization [facility] Address [address] [place] [address] Phone Care Team Providers Care Seed Buyer Name Role Phone Rufus De Luna MD Primary Care Provider [phone] Rufus De Luna MD Unavailable Reason for Visit * Auth/Cert (Routine) Specialty Diagnoses / Procedures Referred By Ramsey ansari Referred To Contact Referral ID Status Reason Start Date Expiration Date Visits Re quested Visits Authorized [id number] 1 1 Encounter Details Date Type Department Care Team (Late st Contact Info) Description 02/06/2025 10:15 AM EST Home Care Visit [facility] [address] [place] [address] Veronique Rubio LPN [address] [place] [address] RELIABILITY SPECIALIST HOME VISIT Social History Tobacco Use Types Packs/Day Years Used Date Smoking Tobacco: Never Smokeless Tobacco: Never Alcohol Use Standard Drinks/Week Comments Not Currently 0 (1 standard drink = 0.6 oz pur e alcohol) Home Health Assessment: Transportation Answer Date Recorded Lack of Transportation (Medical) No 01/11/2025 Lack of Transportation (Non-Medical) No 01/11/2025 Patient Unable or Declines to Respond No 01/11/2025 Child or Family Care Answer Date Record ed Do you have problems with on e of the following making it difficult for you to work, study, or receive health care? No 01/21/2022 Education Answer Date Recorded Are you interested in more education? Not on narda e 01/22/2024 Are you concerned about learning? Not on file 01/22/2024 No 01/22/2024 No 01/22/2024 Food Answer Date Recorded Within the past 6 months we worried whether our food would run out before we got money to buy more. I choose not to answer 01/21/2022 Within the past 6 months the food we bought just didn't last and we didn't have enough money to get more. I choose not to answer 01/21/2022 Residential Stability Answer Date Recor ded What is your housing situation today? I do not have housing (staying with others, in a hotel, in a chcf, living outside on the street, on a beach, in a car, or in a park) 01/21/2022 How many times have you move d in the past 12 months? One time 01/21/2022 Paying for Meds Answer Date Recorded Do you have trouble paying for medicines? I german se not to answer 01/21/2022 Paying Utility Bills Answer Date Record ed Do you have trouble paying your heating or elect ricity bill? Yes 01/21/2022 Transportation Answer Date Recorded Has the lack of transportati on kept you from medical appointments or from getting medications? Yes 01/21/2022 Unemployment Answer Date Recorded Are you currently unemployed or working on a part-time or temporary basis, and looking for work? No 01/21/2022 Digital Access Answer Date Recorded No 07/29/2022 No 07/29/2022 Reliable internet access at home? Not on file 07/29/2022 Device with a working camera? Not on file Intimate Partner Violence Answer Date R ecorded Are you denied basic needs s uch as food, clothing, or medical care? No 01/02/2025 In the past 12 months have y ou been in a relationship with a person who hurts, threatens, or tries to control you? No 01/02/2025 Are you denied basic needs s uch as food, clothing, or medical care? No 01/02/2025 In the past 12 months have y ou been in a relationship with a person who hurts, threatens, or tries to control you? No 01/02/2025 Sex and Gender Information Value Date Recorded Sex Assigned at Male 12/04/2021 3:50 PM EDT Legal Sex Male 7:35 PM EST Gender Identity Male 12/04/2021 3:50 PM EDT Sexual Orientation Straight 12/04/2021 3: 50 PM EDT documented as of this encounter Last Filed Vital Signs Vital Sign Reading Time Taken Comments Blood Pressure 128/82 02/06/2025 11:14 AM EST Pulse 63 02/06/2025 11:14 AM EST Temperature 36.7 C (98 F) 02/06/2025 11:14 AM EST Respiratory Rate 18 02/06/2025 11:14 AM EST Oxygen Saturation 98% 02/06/2025 11:14 AM EST Inhaled Oxygen Concentration - - Weight - - Height - - Body Mass Index - - documented in this encounter Plan of Treatment Upcoming Encounters Date Type Department Care Team (Late st Contact Info) Description 02/13/2025 2:30 AM EST Appointment [facility] [address] [place] [phone] Nilam Mann RN [address] [place] [address] [email or web address] 02/16/2025 12:30 AM EST Appointment [facility] [address] [place] [phone] Nilam Mann RN [address] [place] [address] [email or web address] 02/20/2025 3:00 AM EST Appointment [facility] [address] [place] [phone] Nilam Mann RN [address] [place] [address] [email or web address] 02/23/2025 1:00 AM EST Appointment [facility] [address] [place] [phone] AndNilam Ghotra, ADELAIDE [address] [place] [address] 02/27/2025 2:30 AM EST Appointment [facility] [address] [place] [phone] AndNilam Ghotra, ADELAIDE [address] [place] [address] 03/02/2025 12:30 AM EST Appointment [facility] [address] [place] [phone] AndNilam Ghotra, ADELAIDE [address] [place] [address] 03/06/2025 1:00 AM EST Appointment [facility] [address] [place] [phone] AndNilam Ghotra, ADELAIDE [address] [place] [address] 03/09/2025 Appointment [facility] [address] [place] [address] AndNilam Ghotra, ADELAIDE [address] [place] [address] 07/10/2025 1:30 PM EDT Office Visit [facility] [address] [place] [address] Rufus De Luna MD [address] [place] [address] documented as of this encounter Visit Diagnoses Not on filedocumented in this encounter Additional Health Concerns Assessment Noted Time PHQ-9 Depression Total Score: 21 025 2:51 PM EDT PHQ-2 Depression Total Score: 6 01/03/20 25 2:51 PM EDT documented as of this encounter Home Health Visit - Care Plan Visit Details Visit Type -RELIABILITY SPECIALIST HOME VISIT Discipline -Detention Problems Problem Description Start Date Status Goals Interve ntions HH - Wound Disciplines: All Active Home Health Disciplines, Detention 01/11/2025 Active 1 goal linked to scheduled/document ed intervention 4 problem interventions scheduled/document ed in this visit 1 goal intervention scheduled/document ed in this visit HH - Medication Management Disciplines: All Active Home Health Disciplines 01/11/2025 Active 1 goal linked to scheduled/document ed intervention 2 goal interventions scheduled/document ed in this visit HH - Focus of Care and Teaching Disciplines: All Active Home Health Disciplines w/RD 01/11/2025 Active 1 goal linked to scheduled/document ed intervention 1 goal intervention scheduled/document ed in this visit HH - Emergency Planning - Knowledge of Disciplines: All Active Home Health Disciplines 01/11/2025 Active 1 goal linked to scheduled/document ed intervention 2 goal interventions scheduled/document ed in this visit HH - Standard of Care Disciplines: All Active Home Health Disciplines 01/11/2025 Active 1 goal linked to scheduled/document ed intervention 2 goal interventions scheduled/document ed in this visit Goals Goal Associated Problem Outcome Goal Met? Visit Notes HH - Demonstrate/verbalize wound care management, wound/lesion will be free from complications HH - Wound No HH - Safe medication management, avoid unnecessary harm related to medication errors and/or interactions HH - Medication Management No HH - Communication and collaboration to achieve patient goals HH - Focus of Care and Teaching No HH - Knowledge of options for managing care in the event of an emergency related situation. HH - Emergency Planning - Knowledge of No HH - Achieve care management for a safe to home/community discharge from homecare HH - Standard of Care No Interventions Intervention Associated Problem/Goal Status Variance Visit Notes HH - Wound care: Description: New skin tear to his scrotum Gently cleanse with soap and water or NS Tap dry apply neosporin ointment and apply boarder foam daily and PRN for soilage dislodgement until healed Problem: - Wound Goal:HH - Demonstrate/verbalize wound care management, wound/lesion will be free from complications Performed HH - Wound care: Description: Wound care to (location) Left lower leg, (Frequency) every overy other day. Remove old dressing. Cleanse as follows: NS Apply (dressing type): Xeroform,Gauze or ABD pad and gauze wrap F/B tape Problem:HH - Wound Performed HH - Wound care: Description: Wound care to (location) Right lower leg Distal (Frequency) every overy other day. Remove old dressing. Cleanse as follows: NS Apply (dressing type): Xeroform,Gauze or ABD pad and gauze wrap F/B tape Problem:HH - Wound Performed HH - Wound care: Description: Wound care to (location)Lower abdomen bulging into scrotal area (Frequency) daily Remove old dressing. Cleanse as follows: Water/soap Apply (dressing type): Zinc oxide, (May apply maplex boarder and remove every 3 days.) Problem:HH - Wound Performed HH - Apply unna boot: Description: Obtain RENUKA index of both legs once prior to use UNNA boots Apply 2 layer compression UNNA boot to both Legs 2 times a week Compression of 20-30 mmHg Educate on removing unna boots such as pain, s/s of infection, poor circulation i.e as numbness and di scoloration to toes Frequent elevation Problem:HH - Wound Performed HH - I/E medication management: administration, purpose, dosages, preparation, setup, scheduling, side effects, food/drug interactions, and potential complications as indicated Description: Update patient's copy of medication list as needed. Problem: - Medication Management Goal: - Safe medication management, avoid unnecessary harm related to medication errors and/or interactions Performed - Complete medication review every visit and medication reconciliation as indicated. Pharmacy information: Description: SN to review meds each visit Problem: - Medication Management Goal: - Safe medication management, avoid unnecessary harm related to medication errors and/or interactions Performed - Focus of care, teaching completed and plan for next visit Problem: - Focus of Care and Teaching Goal: - Communication and collaboration to achieve patient goals Performed Primary Clinical Focus this Visit & Instruction Provided: VSS, A/Ox3, denies pain, no SOB noted, snv for wound care and education continued, stable glucose, no hypo/hyperglycemic events, BLE wounds noted, no s/s of infections, wound care completed as or dered, dressings cdi, independant with dressing to groin, dressing intact, educated on s/s to notify MD/ER, fall prevention and glucose monitoring Instruction Provided to: caregiver Response to Instruction/Teachin g: Is partially able to teach ba ck topics as evidenced by verbalizing understanding. Plan for Next Visit Specific Focus & Education Needed: woundcare New Orders: none Updated Discharge Plan: when wounds heal HH - I/E management of care in an urgent or emergency (ER) situation: When to call your Home Care Team/[facility], ER plans, supplies, evacuation, when to contact local ER officials and how to stay informed Problem:HH - Emergency Planning - Knowledge of Goal:HH - Knowledge of options for managing care in the event of an emergency related situation. Performed HH - Emergency planning assessment: the emergency plan, supplies needed, emergency contact numbers and an evacuation plan were reviewed Description: Patient and Caregiver is/are knowledgeable of emergency plans. Problem:HH - Emergency Planning - Knowledge of Goal:HH - Knowledge of options for managing care in the event of an emergency related situation. Performed HH - Assess vital signs, pulse oximetry, pain, and as indicated, orthostatic vital signs Description: use agency-specific parameters Problem:HH - Standard of Care Goal:HH - Achieve care management for a safe to home/community discharge from homecare Performed HH - Assess skin integrity Problem:HH - Standard of Care Goal:HH - Achieve care management for a safe to home/community discharge from homecare Performed documented in this encounter Care Teams Seed Buyer Relationship Specialty Start Date End Date Rufus De Luna MD [address] [place] [address] [email or web address] [email or web address] - General Internal Medicine 12/04/21 Rufus De Luna MD [address] [place] [address] Insurance Assigned Provider 06/13/23 documented as of this encounter Additional Source Comments The information contained in this document represents components of the legal health record. It is not the complete legal health record.[facility]
--- OUTSIDE RECORDS SUMMARY | 2025-02-08 16:00 | XMS_ITS | Encounter Summary ---
Author Organization [facility] Address [address] [place] [address] Phone Care Team Providers Care Insurance Account Representative Name Role Phone Rufus De Luna MD Primary Care Provider [phone] Rufus De Luna MD Unavailable Reason for Referral * Medication Prior Authorization - Closed Specialty Diagnoses / Procedures Referred By Ramsey ansari Referred To Contact Diagnoses Type 2 diabetes mellitus with microalbuminuria, with long-term current use of insulin Type 2 diabetes mellitus with diabetic neuropathy, with long-term current use of insulin Sam Gonzalez DO [address] [place] [address] Phone: tel: fax: [email or web address] Referral ID Status Reason Start Date Expiration Date Visits Re quested Visits Authorized [id number] Closed 1 1 Reason for Visit * Reason Comments Follow Up Dexcom Encounter Details Date Type Department Care Team (Late st Contact Info) Description 02/08/2025 4:00 PM EST Telemedicine [facility] [address] [place] [phone] [place] [address] Type 2 diabetes mellitus with microalbuminuria, with long-term current use of insulin (Primary Dx); Type 2 diabetes mellitus with diabetic neuropathy, with long-term current use of insulin; Hyperlipidemia LDL goal <70 Social History Tobacco Use Types Packs/Day Years [...] with others, in a hotel, in a half-way, living outside on the street, on a [...] PM EDT documented as of this encounter Patient Instructions * Patient Instructions* Sam Gonzalez DO - 02/08/2025 4:00 PM EST Please schedule follow-up visit on the way out. Try Mounjaro 2.5 mg once a week injection. And continued Humulin U-500 in the morning and the Jardiance. If you find that sugars are dropping too much overnight then just decrease the Humulin U-500 especially if you are using Mounjaro. I can increase the dose of Mounjaro every 4 weeks so you let me know if it works out for him and you want to increas e it but for now even a little bit may help him. documented in this encounter Progress Notes * Sam Gonzalez DO - 02/08/2025 4:00 PM EST Images from the original note were not included. Presenting Complaint: 1. Type 2 diabetes mellitus with microalbuminuria, with long-term current use of insulin 2. Type 2 diabetes mellitus with diabetic neuropathy, with long-term current use of insulin 3. Hyperlipidemia LDL goal <70 History of Present Illness: 80-year-old man with multiple medical problems eluding hyperlipidemia and diabetes mellitus type 2 for approximately 20 years. He does have neuropathy, microalbuminuria but no retinopathy or macrovascular disease. He was last seen on 08/05/2024 and now presents for follow-up of diabetes mellitus. This is a telemedicine visit conducted via phone. The patient is at home I am in office in the clinic. He was supposed to follow-up in 3 months but the appointment was closer to 6 months and with his poor glycemic control that should not happen. So I asked his to make sure he makes his appointments. As it is he does not come to the office anyway is a telemedicine visit. Using Humulin U-500 insulin pens 50 units at breakfast and 45 units at supper. He the patient's states that he was placed on Jardiance 25 mg by his aircraft structure mechanic. Hemoglobin A1c on 2025 was 8.0% and he is not anemic hemoglobin 14.4 hematocrit 45.4. So it appears to be accurate. Hemoglobin A1c of 8.0 is good enough for him because he is 80 years old. One of the problems is that sometimes overnight he may go down to a glucose of 70 mg/dL and he feels horrible. Most of the time his glucose levels are elevated he is only 16% in range and that is probablywhen he is feeling horrible. Lab work on 2025 shows LDL 28 triglycerides 72 HDL 49. GFR 86. Medication: Pre-Procedure Instructions: Medication Instructions albuterol (PROAIR HFA) 90 mcg/actuation inhaler ammonium lactate (AMLACTIN) 12 % cream BD ULTRA-FINE MINI PEN NEEDLE 31 gauge x 3/16 Ndle bisacodyl (DULCOLAX, BISACODYL,) 5 mg EC tablet blood-glucose meter,continuous (DEXCOM G7 IRON WORKER FOREMAN) [facility] blood-glucose sensor (DEXCOM G7 SENSOR) Shahla cephalexin (KEFLEX) 500 MG capsule cholecalciferol (VITAMIN D3) 25 MCG (1,000 unit) tablet citalopram (CELEXA) 20 MG tablet cyclobenzaprine (FLEXERIL) 5 MG tablet diaper,brief,adult,disposable (UNDERGARMENT) Misc docusate sodium (COLACE) 100 MG capsule ELIQUIS 5 mg tablet eplerenone (INSPRA) 50 MG tablet famotidine (PEPCID) 20 MG tablet furosemide (LASIX) 40 MG tablet gabapentin (NEURONTIN) 600 MG tablet hydrOXYzine (VISTARIL) 25 MG capsule insulin pen needles, disposable, (BD ULTRA-FINE MINI PEN NEEDLE) 31 gauge x 3/16 Ndle insulin regular U-500 CONC (HUMULIN R, KWIKPEN) 500 unit/mL (3 mL) subcutaneous injection pen ipratropium-albuteroL (DUONEB) 0.5-3 mg (2.5 mg base)/3 mL nebulizer solution JARDIANCE 25 mg tablet losartan (COZAAR) 50 MG tablet metoprolol succinate (TOPROL-XL) 50 MG 24 hr tablet nebulizer accessories (NEBULIZER MISC) nystatin cream ONETOUCH DELICA PLUS LANC DEV Kit ONETOUCH VERIO FLEX METER Misc meter ONETOUCH VERIO Strp strips oxyCODONE HCl 10 mg Tab polyethylene glycol (MIRALAX) 17 gram packet rosuvastatin (CRESTOR) 20 MG tablet tamsulosin (FLOMAX) 0.4 mg Cap TRELEGY ELLIPTA 100-62.5-25 mcg inhalation powder triamcinolone acetonide 0.1 % cream No current facility-administered medications for this visit. Lab Data: Hospital Outpatient Visit on 2025 Component Date Value Ref Range Status SODIUM 2025 137 133 - 146 mmol/L Final POTASSIUM 2025 4.0 3.3 - 5.1 mmol/L Final CHLORIDE 2025 102 96 - 108 mmol/L Final CO2 2025 24 21 - 35 mmol/L Final BUN 2025 12 6 - 19 mg/dL Final CREATININE 2025 0.90 0.5 - 1.5 mg/dL Final GLUCOSE 2025 96 70 - 99 mg/dL Final ALBUMIN 2025 3.3 (L) 3.9 - 4.8 g/dL Final TOTAL PROTEIN 2025 7.5 6.5 - 8.0 g/dL Final CALCIUM 2025 9.1 8.4 - 10.3 mg/dL Final ALKALINE PHOSPHATASE 2025 157 (H) 39 - 117 U/L Final TOTAL BILIRUBIN 2025 0.6 0.0 - 1.2 mg/dL Final AST 2025 18 0 - 37 U/L Final ALT 2025 9 0 - 40 U/L Final GLOBULIN 2025 4.2 1 - 4.8 g/dL Final EGFR 2025 86 >59 mL/min/1.73m2 Final Estimated glomerular filtration rate calculated using the CKD-EPI refit equation. ANION GAP 2025 15 10 - 20 mmol/L Final C REACTIVE PROTEIN 2025 29.7 (H) 0.0 - 4.0 mg/L Final HEMOGLOBIN A1C 2025 8.0 (H) 4.3 - 5.8 % Final HDL 2025 49 mg/dL Final Comment: Interpretation <40 mg/dL: Low HDL cholesterol (major risk factor for CHD) Greater than or equal to 60 mg/dL: High HDL cholesterol ( negative risk factor for CHD) HDL - cholesterol is affected by a number of factors, e.g. smoking, excerise, hormones, sex and age. CHOLESTEROL 2025 91 0 - 240 mg/dL Final TRIGLYCERIDES 2025 72 30 - 160 mg/dL Final LDL 2025 28 (L) 50 - 129 mg/dL Final Comment: LDL levels in terms of risk for coronary heart disease: <100 mg/dL: Optimal 100-129 mg/dL: Near or above optimal 130-159 mg/dL: Borderline high 160-189 mg/dL: High >190 mg/dL: Very High CARDIAC RISK RATIO 2025 1.9 (L) 3.4 - 5.0 Final WBC 2025 10.27 4.00 - 11.00 K/uL Final RBC 2025 5.22 4.50 - 5.90 M/uL Final HGB 2025 14.4 13.5 - 17.5 g/dL Final HCT 2025 45.4 41.0 - 53.0 % Final PLT 2025 268 150 - 450 K/uL Final MCV 2025 87.0 80.0 - 100.0 fL Final MCH 2025 27.6 27.0 - 31.0 pg Final MCHC 2025 31.7 (L) 32.0 - 36.0 g/dL Final RDW 2025 15.7 (H) 11.5 - 14.5 % Final MPV 2025 10.5 8.4 - 12.0 fL Final NRBC 2025 0.00 0.00 /100 WBCs Final ABSOLUTE NRBC 2025 0.00 0.00 K/uL Final Physical Exam: Vital Signs:There were no vitals filed for this visit. body mass index is unknown because there is no height or weight on file. Gen. Exam: Impression: 1. Type 2 diabetes mellitus with microalbuminuria, with long-term current use of insulin (Primary) Assessment & Plan: His hemoglobin A1c is 8.0 but currently his GMI showing 8.9%. He tends to develop hypoglycemic symptoms with glucose levels in the 70s overnight. His does decrease his Humulin U-500 if he does not eat much at dinner. This is to try to prevent the hypoglycemia overnight. He is on Jardiance which should help decrease his glucose levels but it will not cause him to become hypoglycemic so he should continue that. I want to add Mounjaro 2.5 mg weekly I did prescribe this in the past and he never started it but he really should try it just to see if it will control his glucose a little bit better. This medication should not cause hypoglycemia either because it only stimulates insulin secretion with food intake. He should continue the Humulin U-500 in the morning. And I wonder if he would need to take the Humulin U-500 overnight or maybe it could be decreased to a lower dose in order to prevent the hypoglycemia especially with the addition of Mounjaro. The patient weighs over 300 poundsand he is sedentary. Apparently he does not eat much but he sneaks food such as junk food throughout the day which results in elevated glucose levels. He does not have pancreatitis. Orders: - tirzepatide (MOUNJARO) 2.5 mg/0.5 mL PnIj subcutaneous pen Dispense: 2 mL; Refill: 3 - insulin regular U-500 CONC (HUMULIN R, KWIKPEN) 500 unit/mL (3 mL) subcutaneous injection pen Dispense: 25 mL; Refill: 1 - BD ULTRA-FINE MINI PEN NEEDLE 31 gauge x 3/16 Ndle Dispense: 100 each; Refill: 3 2. Type 2 diabetes mellitus with diabetic neuropathy, with long-term current use of insulin - tirzepatide (MOUNJARO) 2.5 mg/0.5 mL PnIj subcutaneous pen Dispense: 2 mL; Refill: 3 - insulin regular U-500 CONC (HUMULIN R, KWIKPEN) 500 unit/mL (3 mL) subcutaneous injection pen Dispense: 25 mL; Refill: 1 - BD ULTRA-FINE MINI PEN NEEDLE 31 gauge x 3/16 Ndle Dispense: 100 each; Refill: 3 3. Hyperlipidemia LDL goal <70 Assessment & Plan: Controlled, LDL is 39 mg/dl, continue rosuvastatin 20. Return in about 3 months (around 05/09/2025) for Diabetes. I have maintained a longitudinal relationship with the patient, overseeing the care of of their diabetes mellitus, hyperlipidemia. This has significantly influence my decision-making and treatment plans during today's encounter. Sam Gonzalez DO documented in this encounter Miscellaneous Notes * Assessment & Plan Note - Sam Gonzalez DO - 02/08/2025 4:55 PM ESTAssociated Problem(s): Hyperlipidemia LDL goal <100 Controlled, LDL is 39 mg/dl, continue rosuvastatin 20. * Assessment & Plan Note - Sam Gonzalez DO - 02/08/2025 4:53 PM ESTAssociated Problem(s): Type 2 diabetes mellitus with microalbuminuria, with long-term current use of insulin His hemoglobin A1c is 8.0 but currently his GMI showing 8.9%. He tends to develop hypoglycemic symptoms with glucose levels in the 70s overnight. His does decrease his Humulin U-500 if he does not eat much at dinner. This is to try to prevent the hypoglycemia overnight. He is on Jardiance which should help decrease his glucose levels but it will not cause him to become hypoglycemic so he should continue that. I want to add Mounjaro 2.5 mg weekly I did prescribe this in the past and he never started it but he really should try it just to see if it will control his glucose a little bit better. This medication should not cause hypoglycemia either because it only stimulates insulin secretion with food intake. He should continue the Humulin U-500 in the morning. And I wonder if he would need to take the Humulin U-500 overnight or maybe it could be decreased to a lower dose in order to prevent the hypoglycemia especially with the addition of Mounjaro. The patient weighs over 300 poundsand he is sedentary. Apparently he does not eat much but he sneaks food such as junk food throughout the day which results in elevated glucose levels. He does not have pancreatitis. documented in this encounter Plan of Treatment Upcoming Encounters Date Type Department Care Team (Late st Contact Info) Description 02/13/2025 2:30 AM EST Appointment [facility] [address] [place] [address] Nilam Mann RN [address] [place] [address] 02/16/2025 12:30 AM EST Appointment [facility] [address] [place] [address] Nilam Mann RN [address] [place] [address] 02/20/2025 3:00 AM EST Appointment [facility] [address] [place] [address] Nilam Mann RN [address] [place] [address] [email or web address] 02/23/2025 1:00 AM EST Appointment [facility] [address] [place] [address] AndNilam Ghotra, ADELAIDE [address] [place] [address] 02/27/2025 2:30 AM EST Appointment [facility] [address] [place] [address] AndNilam Ghotra RN [address] [place] [address] [email or web address] 03/02/2025 12:30 AM EST Appointment [facility] [address] [place] [address] AndNilam Ghotra, ADELAIDE [address] [place] [address] [email or web address] 03/06/2025 1:00 AM EST Appointment [facility] [address] [place] [address] AndNialm Ghotra, ADELAIDE [address] [place] [address] [email or web address] 03/09/2025 Appointment [facility] [address] [place] [address] AndNilam Ghotra, ADELAIDE [address] [place] [address] [email or web address] 07/10/2025 1:30 PM EDT Office Visit [facility] [address] [place] [address] Rufus De Luna MD [address] [place] [address] documented as of this encounter Visit Diagnoses Diagnosis Type 2 diabetes mellitus with microalbuminuria, with long-term current use of insulin- Primary Type 2 diabetes mellitus with diabetic neuropathy, with long-term current use of insulin Hyperlipidemia LDL goal <70 Other and unspecified hyperlipidemia documented in this encounter Additional Health Concerns Assessment Noted Time PHQ-9 Depression Total Score: 21 025 2:51 PM EDT PHQ-2 Depression Total Score: 6 01/03/20 25 2:51 PM EDT documented as of this encounter Care Teams Insurance Account Representative Relationship Specialty Start Date End Date Rufus De Luna MD [address] [place] [address] [email or web address] PCP - General Internal Medicine 12/04/21 Rufus De Luna MD [address] [place] [address] Insurance Assigned Provider 06/13/23 documented as of this encounter Additional Source Comments The information contained in this document represents components of the legal health record. It is not the complete legal health record.[facility]
--- OUTSIDE RECORDS SUMMARY | 2025-02-09 12:30 | XMS_ITS | Encounter Summary ---
Author Organization [facility] Address [address] [place] [address] Phone Care Team Providers Care Registered Radiation Therapist Name Role Phone Rufus De Luna MD Primary Care Provider [phone] Rufus De Luna MD Unavailable Encounter Details Date Type Department Care Team (Late st Contact Info) Description 02/09/2025 12:30 PM EST Home Care Visit [facility] [address] [place] [address] Veronique Rubio LPN [address] [place] [address] CALL CENTRE SUPERVISOR HOME VISIT Social History Tobacco Use Types [...] with others, in a hotel, in a snf, living outside on the street, on a [...] PM EDT documented as of this encounter Plan of Treatment Upcoming Encounters Date Type Department Care Team (Late st Contact Info) Description 02/13/2025 2:30 AM EST Appointment [facility] [address] [place] [phone] Nilam Mann RN [address] [place] [address] 02/16/2025 12:30 AM EST Appointment [facility] [address] [place] [phone] Nilam Mann RN [address] [place] [address] 02/20/2025 3:00 AM EST Appointment [facility] [address] [place] [phone] Nilam Mann RN [address] [place] [address] 02/23/2025 1:00 AM EST Appointment [facility] [address] [place] [phone] Nilam Mann RN [address] [place] [address] 02/27/2025 2:30 AM EST Appointment [facility] [address] [place] [phone] Nilam Mann RN [address] [place] [address] 03/02/2025 12:30 AM EST Appointment [facility] [address] [place] [address] Nilam Mann RN [address] [place] [address] 03/06/2025 1:00 AM EST Appointment [facility] [address] [place] [address] Nilam Mann RN [address] [place] [address] 03/09/2025 Appointment [facility] [address] [place] [phone] Nilam Mann RN [address] [place] [address] 07/10/2025 1:30 PM EDT Office Visit [facility] [address] [place] [address] Rufus De Luna MD [address] [place] [address] [email or web address] documented as of this encounter Visit Diagnoses Not on filedocumented in this encounter Additional Health Concerns Assessment Noted Time PHQ-9 Depression Total Score: 21 025 2:51 PM EDT PHQ-2 Depression Total Score: 6 01/03/20 25 2:51 PM EDT documented as of this encounter Home Health Visit - Care Plan Visit Details Visit Type -CALL CENTRE SUPERVISOR HOME VISIT Discipline -Care Home Problems Problem Description Start Date Status Goals Interve ntions HH - Wound Disciplines: All Active Home Health Disciplines, Care Home 01/11/2025 Active 1 goal linked to scheduled/document [...] Intervention Associated Problem/Goal Status Variance Visit Notes - Wound care: Description: New skin tear to his scrotum Gently cleanse with soap and water or NS Tap dry apply neosporin ointment and apply boarder foam daily and PRN for soilage dislodgement until healed Problem:HH - Wound Goal:HH - Demonstrate/verbalize wound care management, wound/lesion will be free from complications Scheduled - Wound care: Description: Wound care to (location) Left lower leg, (Frequency) every overy other day. Remove old dressing. Cleanse as follows: NS Apply (dressing type): Xeroform,Gauze or ABD pad and gauze wrap F/B tape Problem:HH - Wound Scheduled - Wound care: Description: Wound care to (location) Right lower leg Distal (Frequency) every overy other day. Remove old dressing. Cleanse as follows: NS Apply (dressing type): Xeroform,Gauze or ABD pad and gauze wrap F/B tape Problem:HH - Wound Scheduled - Wound care: Description: Wound care to (location)Lower abdomen bulging into scrotal area (Frequency) daily Remove old dressing. Cleanse as follows: Water/soap Apply (dressing type): Zinc oxide, (May apply maplex boarder and remove every 3 days.) Problem:HH - Wound Scheduled HH - Apply unna boot: Description: Obtain RENUKA index of both legs once prior to use UNNA boots Apply 2 layer compression UNNA boot to both Legs 2 times a week Compression of 20-30 mmHg Educate on removing unna boots such as pain, s/s of infection, poor circulation i.e as numbness and di scoloration to toes Frequent elevation Problem:HH - Wound Scheduled HH - I/E medication management: administration, purpose, dosages, preparation, setup, scheduling, side effects, food/drug interactions, and potential complications as indicated Description: Update patient's copy of medication list as needed. Problem: - Medication Management Goal: - Safe medication management, avoid unnecessary harm related to medication errors and/or interactions Scheduled HH - Complete medication review every visit and medication reconciliation as indicated. Pharmacy information: Description: SN to review meds each visit Problem: - Medication Management Goal: - Safe medication management, avoid unnecessary harm related to medication errors and/or interactions Scheduled - Focus of care, teaching completed and plan for next visit Problem: - Focus of Care and Teaching Goal: - Communication and collaboration to achieve patient goals Scheduled - I/E management of care in an urgent or emergency (ER) situation: When to call your Home Care Team/91, ER plans, supplies, evacuation, when to contact local ER officials and how to stay informed Problem: - Emergency Planning - Knowledge of Goal: - Knowledge of options for managing care in the event of an emergency related situation. Scheduled - Emergency planning assessment: the emergency plan, supplies needed, emergency contact numbers and an evacuation plan were reviewed Description: Patient and Caregiver is/are knowledgeable of emergency plans. Problem: - Emergency Planning - Knowledge of Goal: - Knowledge of options for managing care in the event of an emergency related situation. Scheduled HH - Assess vital signs, pulse oximetry, pain, and as indicated, orthostatic vital signs Description: use agency-specific parameters Problem: - Standard of Care Goal: - Achieve care management for a safe to home/community discharge from homecare Scheduled HH - Assess skin integrity Problem:HH - Standard of Care Goal:HH - Achieve care management for a safe to home/community discharge from homecare Scheduled documented in this encounter Care Teams Registered Radiation Therapist Relationship Specialty Start Date End Date Rufus De Luna MD [address] [place] [address] PCP - General Internal Medicine 12/04/21 Rufus De Luna MD [address] [place] [address] [email or web address] Insurance Assigned Provider 06/13/23 documented as of this encounter Additional Source Comments The information contained in this document represents components of the legal health record. It is not the complete legal health record.[facility]
[2025-02-10] VITALS (12 sets, daily range): BP systolic 134–217; BP diastolic 67–100; PULSE 52–118; RESP 15–30; TEMP 37.7–39.8; O2SAT 80–100; BMI 48.9
--- NOTE | ~2025-02-10 | CT_ITS ---
CLINICAL HISTORY: sepsis CT chest with contrast Comparison: CT - CT ANGIO CHEST PE PROTOCOL - 03/05/24 13:45 EST Findings: Moderate cardiomegaly. The visualized thyroid and mediastinum are unremarkable. Mild diffuse interstitial thickening of both lungs with patchy ground-glass opacities as well as tiny bilateral pleural effusions. The bones are intact. IMPRESSION: 1. Moderate cardiomegaly, diffuse interstitial thickening of both lungs with patchy ground-glass opacities as well as tiny bilateral pleural effusions concerning for fluid overload/CHF. This document has been electronically signed by: Amisha Aburto MD on 02/10/2025 22:40:29
--- NOTE | ~2025-02-10 | CT_ITS ---
CLINICAL HISTORY: tawana gangrene eval CT abdomen and pelvis with contrast Comparison: CT/SR - VASCULAR PE_ABDOMEN_PELVIS (ADULT) - 03/05/24 13:49 EST Findings: No consolidation or effusion. Small hiatal hernia. Redemonstration of moderate pneumobilia and air within the gallbladder, grossly unchanged in the interval. Pancreas is moderately atrophic with multiple focus of calcification. Remainder of the solid organs are within normal limits. No bowel obstruction, pneumoperitoneum, or pneumatosis. Pelvic contents unremarkable. Appendix is not visualized however, no secondary signs of appendicitis. Urinary bladder is mostly contracted with an indwelling urinary catheter. The bones are intact. The perineal region /Scrotum is not completely included in the field of view. IMPRESSION: No acute findings. The peroneal region/scrotum is not completely included in the field of view. No evidence of Tawana's gangrene within this limitation. Redemonstration of moderate pneumobilia and air within the gallbladder, unchanged in the interval. Small hiatal hernia. This document has been electronically signed by: Amisha Aburto MD on 02/10/2025 22:36:42
--- NOTE | ~2025-02-10 | CT_ITS ---
CLINICAL HISTORY: pain CT abdomen and pelvis without contrast Comparison: CT/REG/SR - CT PELVIS WO IV CON - 02/10/25 23:[address]/REG/SR - CT ABDOMEN PELVIS W IV CON - 02/10/25 21:17 EST Findings: No consolidation or effusion. There are mild coronary artery calcifications. There is pneumobilia. Gas is seen within the biliary tract and within the gallbladder. There is no gallbladder wall thickening or pericholecystic inflammatory changes. There is pancreatic atrophy and evidence of chronic pancreatitis. The rest of the solid organs are normal. No bowel obstruction, pneumoperitoneum, or pneumatosis. There is colonic diverticulosis without evidence of diverticulitis. There is a small hiatal hernia. The GI tract is otherwise unremarkable. Prostate is normal. A Marte catheter is present within the urinary bladder. The bladder is contracted and otherwise unremarkable The bones are intact. IMPRESSION: No acute process or interval change. Pneumobilia again noted. This document has been electronically signed by: Isaias Caro MD on 02/12/2025 05:53:40
--- NOTE | ~2025-02-10 | CT_ITS ---
CLINICAL HISTORY: tawana gangrene CT pelvis without contrast Comparison: CT/REG/SR - CT ABDOMEN PELVIS W IV CON - 02/10/25 21:17 EST Findings: See separate CT abdomen pelvis for intra-abdominal evaluation. There is soft tissue edema and overlying dermal thickening of the lower abdomen extending into the perineum region. No soft tissue gas. No measurable fluid collection. IMPRESSION: Findings suggest cellulitis of the lower abdomen extending to the perineum region. No soft tissue gas or measurable fluid collection. This document has been electronically signed by: Ene Mosqueda MD on 02/11/2025 00:36:37
--- NOTE | 2025-02-10 18:09 | ECG_ITS ---
Test Reason : SHORTNESS OF BREATH Blood Pressure : */* mmHG Vent. Rate : 55 BPM Atrial Rate : 55 BPM P-R Int : 154 ms QRS Dur : 80 ms QT Int : 376 ms P-R-T Axes : 82 -57 54 degrees QTcB Int : 359 ms Atrial flutter Left axis deviation Low voltage QRS Inferior infarct , age undetermined Cannot rule out Anterior infarct Abnormal ECG When compared with ECG of 01-Apr-2024 05:12, No significant changes seen Referred By: Hazel Newman Electronically Signed By: ANTWON SAVAGE
--- NOTE | 2025-02-10 18:09 | ED_ITS ---
HPI - General Adult General Chief complaint: Dyspnea Stated complaint: CHF exacerbation sob, o2 in 88 CPAP A&Ox4 Time Seen by Provider: 02/10/25 18:09 Source: patient Mode of arrival: ambulatory Limitations: no limitations History of Present Illness ED Provider: Dr. Newman HPI narrative: This is a 80-year-old male history of hyperlipidemia, AFib on Eliquis, hypertension, CHF, COPD presented hospital today for altered mentation and shortness of breath. EMS placed the patient on CPAP prior to arrival. They noted that patient was breathing in the 30s. History is limited as the patient is lethargic on exam Related Data Home Medications ?Medication ?Instructions ?Recorded ?Confirmed apixaban 5 mg tablet (Eliquis) 5 mg PO BID 03/26/23 atorvastatin 80 mg tablet 80 mg PO BEDTIME 03/26/23 cholecalciferol (vitamin D3) 25 25 mcg PO DAILY 04/01/24 mcg (1,000 unit) tablet citalopram 20 mg tablet 20 mg PO DAILY 03/26/2303/10 docusate sodium 50 mg capsule 50 mg PO Q6H PRN WITH OX YCODONE 03/26/23 04/01/24 eplerenone 50 mg tablet 50 mg PO DAILY 03/26/2303/10 fluticasone fur. 100 mcg-umeclid 1 ea inhalation DAILY 03/26/23 04/01/24 62.5 mcg-vilant 25 mcg inhalat.powder (Trelegy Ellipta) gabapentin 600 mg tablet 600 mg PO BID 03/26/2304/01 insulin regular hum U-500 conc 500 40 unit subcut MARCI Y@1730 03/26/23 04/01/24 unit/mL(3 mL) subcut pen (Humulin R U-500 (Conc) Insulin Kwikpen) losartan 50 mg tablet 50 mg PO DAILY 03/26/2303/10 nystatin 100,000 unit/gram topical 1 appl topical BID PRN abdominal 03/26/23 04/01/24 powder rash omeprazole 20 mg capsule,delayed 20 mg PO DAILY@0630 0 03/26/23 04/01/24 release oxycodone 10 mg tablet 10 mg PO Q6H PRN Moderate Pa in 03/26/23 04/01/24 (Scale Score 5-6) albuterol sulfate 90 mcg/actuation 2 inh inhalation Q6 H PRN Shortness 11/08/23 04/01/24 breath activated powder inhaler Of Breath Or Wheezing hydroxyzine pamoate 25 mg capsule 25 mg PO TID PRN itc h 11/08/23 04/01/24 insulin regular hum U-500 conc 500 40 unit subcut MARCI Y@0900 11/08/23 04/01/24 unit/mL(3 mL) subcut pen (Humulin R U-500 (Conc) Insulin Kwikpen) polyethylene glycol 3350 17 17 g PO DAILY PRN Constipa tion 11/08/23 04/01/24 gram/dose oral powder (Miralax) tamsulosin 0.4 mg capsule 0.4 mg PO BEDTIME 11/08/23 0 04/01/24 triamcinolone acetonide 0.1 % 1 appl topical BID 03/0504/01/24 topical cream Previous Rx's ?Medication ?Instructions ?Recorded empagliflozin 10 mg tablet 10 mg PO DAILY #90 tabs (Jardiance) furosemide 40 mg tablet 40 mg PO DAILY #90 tabs 02/08 04/01 metoprolol succinate 50 mg 50 mg PO DAILY #90 tabs tablet,extended release 24 hr cefuroxime axetil 500 mg tablet 500 mg PO BID #20 tabs 04/06/24 Allergies Allergy/AdvReac Type Severity Reaction Status Date / Time No Known Allergies Allergy Verified 02/10/25 18:13 Review of Systems 2 Review of Systems: Pertinent review of systems as mentioned in HPI. All other system otherwise negative. [facility] Past Medical History [facility] Narrative: As mentioned in HPI Medical History Persistent atrial fibrillation Acute CHF Sepsis Abdominal pain COPD (chronic obstructive pulmonary disease) Acute hypoxemic respiratory failure Bacteremia Paroxysmal A-fib Cauda equina compression CHF (congestive heart failure) Social History Social History Household Members: Spouse Housing: Apartment Do you presently have visiting nurse or other home services: Yes Alcohol intake: never Patient Tobacco Use Status: Never used Tobacco Advance Directives: Yes Advance Directives on File: Yes Advance Directives Date on File: 04/21/23 service: No Physical Exam ED Exam Exam: General: Appears lethargic and warm to touch Head: Normacephalic, atraumatic ENT: oral mucosa moist, neck supple, no tracheal deviation Cardiovascular: Tachycardia rate, regular rhythm, no murmurs, rubbing, gallops Respiratory: Difficult to assess due to body habitus Gastrointestinal: Large anasarca abdomen, there is cellulitic change in the lower pannus appreciated on exam : There is some cellulitic change in the perineal area around the penile area as well. Does appear to be dark red purplish color Extremities: +3 pitting edema bilateral lower extremities Skin: Warm and dry Psychiatric: Appears encephalopathic Vital Signs: Vital Signs - 24 hr 02/10/25 18:10 02/10/25 18:24 02/10/25 18:48 Temperature 103.2 F H 102.7 F H Pulse Rate 55 52 Respiratory Rate 30 H 24 H 20 Blood Pressure 217/90 H 188/76 H Pulse Oximetry 88 L 100 Oxygen Delivery Method Room Air CPAP Oxygen Flow Rate Fraction of Inspired Oxygen 50 02/10/25 19:00 02/10/25 19:00 02/10/25 20:13 Temperature 103.6 F H 102.6 F H Pulse Rate 87 109 H Respiratory Rate 30 H 30 H 26 H Blood Pressure 153/97 H 147/78 H Pulse Oximetry 97 96 Oxygen Delivery Method BiPAP Nasal Cannula Oxygen Flow Rate 2 Fraction of Inspired Oxygen 02/10/25 20:54 02/10/25 20:56 02/10/25 21:31 Temperature 102 F H 102.0 F H 101.3 F H Pulse Rate 96 98 Respiratory Rate 23 H 15 Blood Pressure 134/67 153/95 H Pulse Oximetry 96 97 Oxygen Delivery Method Nasal Cannula Nasal Cannula Oxygen Flow Rate 2 2 Fraction of Inspired Oxygen 02/10/25 21:48 02/10/25 22:07 02/10/25 22:31 Temperature 101.1 F H 100.9 F H 100.8 F H Pulse Rate 105 H 107 H 99 Respiratory Rate 20 18 20 Blood Pressure 135/72 146/88 H 148/78 H Pulse Oximetry 96 97 96 Oxygen Delivery Method Nasal Cannula Nasal Cannula Nasal Cannula Oxygen Flow Rate 2 2 2 Fraction of Inspired Oxygen 02/10/25 23:56 Temperature 99.9 F Pulse Rate 118 H Respiratory Rate 18 Blood Pressure 154/91 H Pulse Oximetry 99 Oxygen Delivery Method Nasal Cannula Oxygen Flow Rate 2 Fraction of Inspired Oxygen BMI result Body Mass Index 48.9 Medications Administered Discontinued Medications Generic Name Dose Route Start Last Admin Trade Name Freq PRN Reason Stop Dose Admin Acetaminophen 1,000 mg in 100 mls @ 400 mls/hr 02/10/25 18:24 02/10/25 19:08 Ofirmev IV 02/10/25 18:38 Infused ONCE ONE Infusion Piperacillin Sod/Tazobactam 100 mls @ 200 mls/hr 02/10/25 19:03 02/10/25 19:40 Sod 4.5 gm/ Sodium Chloride IV 02/10/25 19:32 Infused ONCE ONE Infusion Vancomycin HCl 2,000 mg in 500 mls @ 250 mls/hr 02/10/25 19:49 02/10/25 23:00 Vancomycin/Ns IV 02/10/25 21:48 Infused ONCE ONE Infusion Clindamycin Phosphate 600 mg in 50 mls @ 100 mls/hr 02/10/25 19:49 02/10/25 20:55 Cleocin IV 02/10/25 20:18 Infused ONCE ONE Infusion Lactated Ringer's 500 mls @ 500 mls/hr 02/10/25 20:24 02/10/25 21:20 Lr IVCONT 02/10/25 21:23 Infused .Q1H ONE Infusion Iohexol 100 ml 02/10/25 21:19 02/10/25 21:19 Iohexol 350 Mg/Ml 100 Ml Infus..Btl IV 02/10/25 21:20 100 ml ONCE ONE Administration Ketorolac Tromethamine 15 mg 02/10/25 19:48 02/10/25 20:14 Ketorolac Tromethamine 15 Mg/Ml Vial IVPUSH 02/10/25 19:49 15 mg ONCE ONE Administration Nitroglycerin 1 inch 02/10/25 18:24 02/10/25 18:53 Nitroglycerin 2 % Oint 1 Gm Packet TRANSDERMA 02/10/25 18:25 Not Given ONCE ONE Ondansetron HCl 4 mg 02/10/25 19:35 02/10/25 19:38 Ondansetron Hcl 4 Mg/2 Ml Vial IVPUSH 02/10/25 19:36 4 mg ONCE ONE Administration Medical Decision Making Medical Decision Making [facility] Narrative: 80-year-old male history of diabetes presented hospital today for altered mentation and shortness of breath. Patient was placed on BiPAP due to work of breathing. However patient was warm to touch. It was found that patient has a temperature of 103 degrees. IV Tylenol will be given to the patient. Sepsis lab work will be ordered for the patient. Chest x-ray will be ordered for the patient as well. Lactic acid blood culture will be obtained. UA will be ordered. Chest x-ray will be ordered for the patient. Patient has leukocytosis 18.7, tachycardic in the 110s heart rate. Blood pressure stable at this time. Patient is has slight elevation in BNP and troponin. UA did not show any signs of UTI. 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 IV Zosyn, IV clindamycin and IV vancomycin will be ordered. Patient's lactic acid is elevated. We will not give the full sepsis bolus due to patient's fluid status. Patient is not hypotensive. High risk for fluid overload Patient was vomiting in the BiPAP. BiPAP was discontinued. This was switched over to nasal cannula. I do not think patient has significant respiratory distress requiring BiPAP at this time. I suspect patient tachypnea secondary to his high fever and sepsis. Patient's CT imaging did not show any signs of Rabia gangrene on my review. CT chest shows cardiomegaly was diffuse thickening of both lungs and ground- glass opacity. Bilateral pleural effusion concerning for fluid overload. On re-evaluation of the patient's fever has improved. Blood pressure was maintained at this time. We will plan to admit patient for treatment of his sepsis. Differential Diagnosis Differential Diagnoses: The differential diagnosis associated with the presentation includes Sepsis, Rabia's gangrene, cellulitis, pneumonia Lab Data [facility] Lab Attestation statement: I reviewed the patient's lab results. 02/10/25 18:29 02/10/25 19:03 Labs: Lab Results 02/10/25 02/10/25 02/10/25 Range/Units 18:17 18:29 18:30 WBC 18.7 H (4.8-10.8) X10*3/uL RBC 5.86 H (4.60-5.80) X10*6/uL Hgb 16.2 (14.0-18.0) g/dl Hct 51.6 (42.0-52.0) % MCV 88.1 (80.0-98.0) fL MCH 27.6 (27.0-33.0) pg MCHC 31.4 (31.0-36.0) g/dl RDW 15.5 (11.0-16.0) % Plt Count 222 (160-400) X10*3/uL MPV 11.6 (9.4-12.4) fL Immature Gran % (Auto) 0.7 H (0.0-0.4) % Neut % (Auto) 85.6 H (45-73) % Lymph % (Auto) 8.5 L (20-40) % [place] % (Auto) 3.6 (2-11) % Eos % (Auto) 1.1 (0-4) % Baso % (Auto) 0.5 (0-2) % Lymph # (Auto) 1.6 (1.2-4.9) X10*3/uL [place] # (Auto) 0.7 (0.1-1.2) X10*3/uL Eos # (Auto) 0.2 (0.0-0.4) X10*3/uL Baso # (Auto) 0.1 (0.0-0.2) X10*3/uL Abs Immat Gran (auto) 0.13 H (0.00-0.03) X10*3/uL Absolute Neuts (auto) 16.0 H (2.0-8.3) x10*3/uL Absolute Nucleated RBC 0.000 (0.0-0.012) X10*3/uL Nucleated RBC % (auto) 0.0 (0.0-0.2) /100WBC VBG pH (7.32-7.43) VBG pCO2 mmHg VBG pO2 mmHg VBG HCO3 (22-26) mmol/L VBG O2 Saturation % VBG Base Excess mmol/L Sodium (135-145) mmol/L Potassium (3.3-5.1) mmol/L Chloride (96-108) mmol/L Carbon Dioxide (22-29) mmol/L Anion Gap (12-20) BUN (9-16) mg/dL Creatinine (0.5-1.4) mg/dL Estim Creat Clear Calc Estimated GFR POC Glucose 177 H (60-115) mg/dL Random Glucose (60-115) mg/dL Lactic Acid 3.8 H* (0.5-2.0) mmol/L Lactic Acid F/U @ 2Hr (0.5-2.0) mmol/L Lactic Acid F/U @ 4Hr (0.5-2.0) mmol/L Calcium (8.4-10.2) mg/dL Total Bilirubin (0.0-1.0) mg/dL AST (5-37) U/L ALT (0-40) U/L Alkaline Phosphatase (39-117) U/L Troponin I High Sens (<3.5-35.0) ng/L NT-Pro-B Natriuret Pep (<300) pg/mL Total Protein (6.5-8.0) g/dL Albumin (3.5-5.0) g/dL Lipase (8-78) U/L Urine Color Urine Appearance Urine pH (5.0-9.0) Ur Specific [place] (1.005-1.025) Urine Protein (Neg-Trace) mg/dL Urine Glucose (UA) (Negative) mg/dL Urine Ketones (Negative) mg/dL Urine Blood (Negative) Urine Nitrite (Negative) Ur Leukocyte Esterase (Negative) Urine RBC (0-2) /HPF Urine WBC (0-5) /HPF Ur Squamous Epith Cells (0-2) /HPF Urine Bacteria (None Seen) Hyaline Casts (0-2) /LPF Influenza Type A (PCR) NEGATIVE (Negative) Influenza Type B (PCR) NEGATIVE (Negative) RSV RNA Qual (PCR) NEGATIVE (Negative) SARS-CoV-2 RNA (RT-PCR) NEGATIVE (Negative) 02/10/25 02/10/25 02/10/25 Range/Units 18:40 19:03 19:14 WBC (4.8-10.8) X10*3/uL RBC (4.60-5.80) X10*6/uL Hgb (14.0-18.0) g/dl Hct (42.0-52.0) % MCV (80.0-98.0) fL MCH (27.0-33.0) pg MCHC (31.0-36.0) g/dl RDW (11.0-16.0) % Plt Count (160-400) X10*3/uL MPV (9.4-12.4) fL Immature Gran % (Auto) (0.0-0.4) % Neut % (Auto) (45-73) % Lymph % (Auto) (20-40) % [place] % (Auto) (2-11) % Eos % (Auto) (0-4) % Baso % (Auto) (0-2) % Lymph # (Auto) (1.2-4.9) X10*3/uL [place] # (Auto) (0.1-1.2) X10*3/uL Eos # (Auto) (0.0-0.4) X10*3/uL Baso # (Auto) (0.0-0.2) X10*3/uL Abs Immat Gran (auto) (0.00-0.03) X10*3/uL Absolute Neuts (auto) (2.0-8.3) x10*3/uL Absolute Nucleated RBC (0.0-0.012) X10*3/uL Nucleated RBC % (auto) (0.0-0.2) /100WBC VBG pH 7.35 (7.32-7.43) VBG pCO2 37 mmHg VBG pO2 67 mmHg VBG HCO3 20 L (22-26) mmol/L VBG O2 Saturation 90.0 % VBG Base Excess -4.1 mmol/L Sodium 137 (135-145) mmol/L Potassium 4.3 (3.3-5.1) mmol/L Chloride 104 (96-108) mmol/L Carbon Dioxide 24 (22-29) mmol/L Anion Gap 13 (12-20) BUN 14 (9-16) mg/dL Creatinine 1.05 (0.5-1.4) mg/dL Estim Creat Clear Calc 77.5 Estimated GFR > 60 POC Glucose (60-115) mg/dL Random Glucose 223 H (60-115) mg/dL Lactic Acid (0.5-2.0) mmol/L Lactic Acid F/U @ 2Hr (0.5-2.0) mmol/L Lactic Acid F/U @ 4Hr (0.5-2.0) mmol/L Calcium 8.8 (8.4-10.2) mg/dL Total Bilirubin 1.2 H (0.0-1.0) mg/dL AST 16 (5-37) U/L ALT < 6 (0-40) U/L Alkaline Phosphatase 129 H (39-117) U/L Troponin I High Sens 49.5 H D (<3.5-35.0) ng/L NT-Pro-B Natriuret Pep 1749.6 H (<300) pg/mL Total Protein 7.4 (6.5-8.0) g/dL Albumin 3.7 (3.5-5.0) g/dL Lipase 5 L (8-78) U/L Urine Color Yellow Urine Appearance Clear Urine pH 5.0 (5.0-9.0) Ur Specific [place] >= 1.030 H (1.005-1.025) Urine Protein 100 (2+) H (Neg-Trace) mg/dL Urine Glucose (UA) >=1000 H (Negative) mg/dL Urine Ketones Negative (Negative) mg/dL Urine Blood Small (1+) H (Negative) Urine Nitrite Negative (Negative) Ur Leukocyte Esterase Negative (Negative) Urine RBC 6-10 H (0-2) /HPF Urine WBC 6-10 H (0-5) /HPF Ur Squamous Epith Cells 0-2 (0-2) /HPF Urine Bacteria None Seen (None Seen) Hyaline Casts 0-2 (0-2) /LPF Influenza Type A (PCR) (Negative) Influenza Type B (PCR) (Negative) RSV RNA Qual (PCR) (Negative) SARS-CoV-2 RNA (RT-PCR) (Negative) 02/10/25 02/10/25 Range/Units 20:44 22:58 WBC (4.8-10.8) X10*3/uL RBC (4.60-5.80) X10*6/uL Hgb (14.0-18.0) g/dl Hct (42.0-52.0) % MCV (80.0-98.0) fL MCH (27.0-33.0) pg MCHC (31.0-36.0) g/dl RDW (11.0-16.0) % Plt Count (160-400) X10*3/uL MPV (9.4-12.4) fL Immature Gran % (Auto) (0.0-0.4) % Neut % (Auto) (45-73) % Lymph % (Auto) (20-40) % [place] % (Auto) (2-11) % Eos % (Auto) (0-4) % Baso % (Auto) (0-2) % Lymph # (Auto) (1.2-4.9) X10*3/uL [place] # (Auto) (0.1-1.2) X10*3/uL Eos # (Auto) (0.0-0.4) X10*3/uL Baso # (Auto) (0.0-0.2) X10*3/uL Abs Immat Gran (auto) (0.00-0.03) X10*3/uL Absolute Neuts (auto) (2.0-8.3) x10*3/uL Absolute Nucleated RBC (0.0-0.012) X10*3/uL Nucleated RBC % (auto) (0.0-0.2) /100WBC VBG pH (7.32-7.43) VBG pCO2 mmHg VBG pO2 mmHg VBG HCO3 (22-26) mmol/L VBG O2 Saturation % VBG Base Excess mmol/L Sodium (135-145) mmol/L Potassium (3.3-5.1) mmol/L Chloride (96-108) mmol/L Carbon Dioxide (22-29) mmol/L Anion Gap (12-20) BUN (9-16) mg/dL Creatinine (0.5-1.4) mg/dL Estim Creat Clear Calc Estimated GFR POC Glucose (60-115) mg/dL Random Glucose (60-115) mg/dL Lactic Acid (0.5-2.0) mmol/L Lactic Acid F/U @ 2Hr 2.4 H* (0.5-2.0) mmol/L Lactic Acid F/U @ 4Hr 2.3 H* (0.5-2.0) mmol/L Calcium (8.4-10.2) mg/dL Total Bilirubin (0.0-1.0) mg/dL AST (5-37) U/L ALT (0-40) U/L Alkaline Phosphatase (39-117) U/L Troponin I High Sens (<3.5-35.0) ng/L NT-Pro-B Natriuret Pep (<300) pg/mL Total Protein (6.5-8.0) g/dL Albumin (3.5-5.0) g/dL Lipase (8-78) U/L Urine Color Urine Appearance Urine pH (5.0-9.0) Ur Specific [place] (1.005-1.025) Urine Protein (Neg-Trace) mg/dL Urine Glucose (UA) (Negative) mg/dL Urine Ketones (Negative) mg/dL Urine Blood (Negative) Urine Nitrite (Negative) Ur Leukocyte Esterase (Negative) Urine RBC (0-2) /HPF Urine WBC (0-5) /HPF Ur Squamous Epith Cells (0-2) /HPF Urine Bacteria (None Seen) Hyaline Casts (0-2) /LPF Influenza Type A (PCR) (Negative) Influenza Type B (PCR) (Negative) RSV RNA Qual (PCR) (Negative) SARS-CoV-2 RNA (RT-PCR) (Negative) Independent Interpretation I performed an independent interpretation of an: CT Scan Radiology Impression Discussion of test interpretation with radiology: I have reviewed the radiologist's reading. Chronic Conditions Patient?s care impacted by: Diabetes Critical Care Time Critical Care Time Critical Care Time: Yes Total Critical Care Time: 40 Attestation: Time is exclusive of separately billable procedures. Time includes: direct patient care, patient reassessment, coordination of patient care, interpretation of data (laboratory data, pulse oximetry, arterial blood gases and chest xrays), review of patient's medical records, medical consultation and documentation of patient care. Procedures excluded from critical care time: central intravenous line placement and electrocardiography. Discharge Plan Discharge Clinical Impression: Cellulitis, Sepsis Patient Disposition: Admitted As Inpatient Print Language: Azerbaijani
[2025-02-10 18:39] LABS: MANUAL DIFF FLAG NO
--- NOTE | 2025-02-10 18:42 | PC.NURSE ---
patient presents from home with increased sob x1day, patient found to be tachypenic and satting at 80% for ems on room air. 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 patient arrives to ED with lethargy, increased wob on cpap, placed on ED cpap 50% on 10. patient opens eyes to stimuli, appears tired at this time. additional iv access in the right hand #20, labs obtained. patient rolled for rectal temp showing 103.2. patient skin is dry and intact on posterior patient has compression dressings on bilat lower extrem, noted to have bright red irritation in pannus folds and scrotum. patient medicated per MAY. temp sending krishnan placed with clear yellow output.
[2025-02-10 18:43] LABS: Hematocrit 51.6 % (42.0-52.0); Hemoglobin 16.2 g/dl (14.0-18.0); Imm Gran Abs Auto 0.13 X10*3/uL (0.00-0.03); Imm Gran Pct Auto 0.7 % (0.0-0.4); Lymphocytes Absolute Auto 1.6 X10*3/uL (1.2-4.9); Mean Corpuscular HGB Conc 31.4 g/dl (31.0-36.0); Mean Corpuscular Hemoglobin 27.6 pg (27.0-33.0); Mean Corpuscular Volume 88.1 fL (80.0-98.0); NRBC Abs Auto 0.000 X10*3/uL (0.0-0.012); NRBC Pct Auto 0.0 /100WBC (0.0-0.2); Platelet Count 222 X10*3/uL (160-400); Red Blood Count 5.86 X10*6/uL (4.60-5.80); White Blood Count 18.7 X10*3/uL (4.8-10.8)
[2025-02-10 18:45] LABS: VBG HCO3 20 mmol/L (22-26); VBG O2 % Saturation 90.0 %
[2025-02-10 18:46] LABS: Glucose, Whole Blood 177 mg/dL (60-115)
[2025-02-10 18:47] LABS: Venous Blood Gas Refer to POC result
--- NOTE | 2025-02-10 19:03 | PC.NURSE ---
Presumed care of pt. pt found w/ rt at bedside switched from CPAP to BiPAP. PT maintaining o2 sat of 96-97%. Sepsis alert called by Dr. Newman at this time. PT medicated per MAY.
[2025-02-10 19:22] LABS: Appearance Urine Clear; Glucose Urine UA >=1000 mg/dL (Negative); PH 5.0 (5.0-9.0); Specific Gravity - Urine >= 1.030 (1.005-1.025); UMIC TRIGGER UA YES
[2025-02-10 19:24] LABS: Alanine Aminotransferase < 6 U/L (0-40); Albumin Level 3.7 g/dL (3.5-5.0); Alkaline Phosphatase 129 U/L (39-117); Anion Gap 13 (12-20); Aspartate Amino Transferase 16 U/L (5-37); Blood Urea Nitrogen 14 mg/dL (9-16); Calcium 8.8 mg/dL (8.4-10.2); Carbon Dioxide 24 mmol/L (22-29); Chloride 104 mmol/L (96-108); Creatinine Clr Calc Pharmacy 77.5; Estimated Glomerular Filt Rate > 60; Potassium 4.3 mmol/L (3.3-5.1); Sodium 137 mmol/L (135-145); Total Protein 7.4 g/dL (6.5-8.0)
[2025-02-10 19:29] LABS: NT Pro B Type Natriuretic Pept 1749.6 pg/mL (<300); Troponin-I High Sensitivity 49.5 ng/L (<3.5-35.0)
--- NOTE | 2025-02-10 19:41 | PC.NURSE ---
pt noted to have episode of vomiting in BIPAP, MD Newman aware, BIPAP removed at this time and pt placed on 2L NC sating 96%. pt medicated per may with zofran
[2025-02-10 20:04] LABS: Resp Syncy Virus RNA Qual PCR NEGATIVE (Negative); SARS COV2 PCR INHOUSE NEGATIVE (Negative)
--- OUTSIDE RECORDS SUMMARY | 2025-02-10 20:07 | XMS_ITS | Encounter Summary ---
Author Organization [facility] Address [address] [facility] [address] [place] [address] Phone Care Team Providers Care [facility] [employer] Name Role Phone Rufus De Luna MD Primary Care Provider [phone] Rufus De Luna MD Unavailable Encounter Details Date Type Department Care Team (Late st Contact Info) Description 12/05/2021 Procedure Pass [facility], [facility] [address] [place], [place] [id number] Social History Tobacco Use Types Packs/Day Years Used Date Smoking Tobacco: Never Assessed Sex and Gender Information Value Date Recorded Sex Assigned at Male 12/04/2021 3:50 PM EDT Legal Sex Male 7:35 PM EST Gender Identity Male 12/04/2021 3:50 PM EDT Sexual Orientation Straight 12/04/2021 3: 50 PM EDT documented as of this encounter Plan of Treatment Upcoming Encounters Date Type Department Care Team (Late st Contact Info) Description 02/13/2025 2:30 AM EST [facility] [address] [place] [address] Nilam Mann, ADELAIDE [address] [place], [place] [phone] 02/16/2025 12:30 AM EST Appointment [facility] [address] [place] [address] AndNilam Ghotra, RN [address] [place] [address] [email or web address] 02/20/2025 3:00 AM EST Appointment [facility] [address] [place] [address] AndNilam Ghotra, RN [address] [place] [address] [email or web address] 02/23/2025 1:00 AM EST Appointment [facility] [address] [place] [address] AndNilam Ghotra, RN [address] [place] [address] [email or web address] 02/27/2025 2:30 AM EST Appointment [facility] [address] [place] [address] AndNilam Ghotra, RN [address] [place] [address] [email or web address] 03/02/2025 12:30 AM EST Appointment [facility] [address] [place] [address] AndNilam Ghotra, RN [address] [place] [address] [email or web address] 03/06/2025 1:00 AM EST Appointment [facility] [address] [place] [address] AndNilam Ghotra, RN [address] [place] [address] [email or web address] 03/09/2025 Appointment [facility] [address] [place] [address] Nilam Mann, A[place]LAIDE [address] [place] [address] [email or web address] 07/10/2025 1:30 PM EDT Office Visit [facility] Internal Medicine [address] [place], [place] [phone] Rufus De Luna MD [address] [place], [place] [phone] documented as of this encounter Visit Diagnoses Not on filedocumented in this encounter Additional Health Concerns Infection Onset Date Last Indicated Resolved Time CoV-Risk Comment:Neg covid neg CXR admitted for sepsis 12/04/2021 12/04/2021 12/05/2021 6:54 AM E DT CoV-Risk 02/26/2022 02/26/2022 02/27/2022 9:14 AM EST Influenza 02/26/2022 02/26/2022 03/05/2022 1:22 AM EST CoV-Risk Comment:Per note documentation 01/26/2024 01/26/2024 10:04 AM EST documented as of this encounter Care Teams [employer] [employer] Relationship Specialty Start Date End Date Rufus De Luna MD [address] [place] [address] [email or web address] PCP - General Internal Medicine 12/04/21 Rufus De Luna MD [address] [place] [address] [email or web address] Insurance Assigned Provider 06/13/23 documented as of this encounter Additional Source Comments The information contained in this document represents components of the legal health record. It is not the complete legal health record.[facility]
--- OUTSIDE RECORDS SUMMARY | 2025-02-10 20:07 | XMS_ITS | Encounter Summary ---
Author Organization [facility] Address [address] [place] [address] Phone Care Team Providers Care [employer] Field Technician Name Role Phone Rufus De Luna MD Primary Care Provider [phone] Rufus De Luna MD Unavailable Encounter Details Date Type Department Care Team (Late st Contact Info) Description 04/27/2022 Procedure Pass [facility], [address] [address] Social History Tobacco Use Types Packs/Day Years Used Date Smoking Tobacco: Never Smokeless Tobacco: Never Alcohol Use Standard Drinks/Week Comments Not Currently 0 (1 standard drink = 0.6 oz pur e alcohol) Child or Family Care Answer Date Record ed Do you have problems with on e of the following making it difficult for you to work, study, or receive health care? No 01/21/2022 Education Answer Date Recorded Are you interested in help w ith more adult education (for example, completing high school, GED, job training, learning the [place] language, technical skills, or developing parenting skills)? No 01/21/2022 Food Answer Date Recorded Within the past [...] with others, in a hotel, in a assisted, living outside on the street, on a [...] basis, and looking for work? No 01/21/2022 Sex and Gender Information Value Date Recorded Sex Assigned at Male 12/04/2021 3:50 PM EDT Legal Sex Male 7:35 PM EST Gender Identity Male 12/04/2021 3:50 PM EDT Sexual Orientation Straight 12/04/2021 3: 50 PM EDT documented as of this encounter Functional Status * Calculated C-SSRS Risk Score (Lifetime/Recent) Answer Date of Assessment Author No Risk Indicated 04/27/2022 7:08 PM Vitor Epstein RN * [place] Suicide Severity Rating Scale (Screener/Recent Self-Report) Question Answer Date of Assessment Author 1. Wish to be (Past 1 Month) No 023 7:08 PM Vitor Epstein RN 2. Non-Specific Active Suici lex Thoughts (Past 1 Month) No 04/27/2022 7:08 PM Vitor Epstein RN 6. Suicidal Behavior (Lifetime) No 3 7:08 PM Vitor Epstein RN documented as of this encounter Plan of Treatment Upcoming Encounters Date Type Department Care Team (Late st Contact Info) Description 02/13/2025 2:30 AM EST Appointment [facility] [address] [place] [address] Nilam Mann RN [address] [place] [address] [email or web address] 02/16/2025 12:30 AM EST Appointment [facility] [address] [place] [address] AndNilam Ghotra, RN [address] [place] [address] [email or web address] 02/20/2025 3:00 AM EST Appointment [facility] [address] [place] [address] AndNilam Ghotra, ADELAIDE [address] [place] [address] [email or web address] 02/23/2025 1:00 AM EST Appointment [facility] [address] [place] [address] AndNilam Ghotra, ADELAIDE [address] [place] [address] [email or web address] 02/27/2025 2:30 AM EST Appointment [facility] [address] [place] [address] AndNilam Ghotra, ADELAIDE [address] [place] [address] [email or web address] 03/02/2025 12:30 AM EST Appointment [facility] [address] [place] [address] AndNilam Ghotra, ADELAIDE [address] [place] [address] [email or web address] 03/06/2025 1:00 AM EST Appointment [facility] [address] [place] [address] Nilam Mann RN [address] [place] [address] 03/09/2025 Appointment [facility] [address] [place] [address] Nilam Mann RN [address] [place] [address] 07/10/2025 1:30 PM EDT Office Visit [facility] [address] [place], [place] [phone] Rufus De Luna MD [address] [place] [address] documented as of this encounter Visit Diagnoses Not on filedocumented in this encounter Additional Health Concerns Infection Onset Date Last Indicated Resolved Time CoV-Risk Comment:Per note documentation 01/26/2024 01/26/2024 10:04 AM EST Assessment Noted Time PHQ-9 Depression Total Score: 14 022 1:54 PM EST PHQ-2 Depression Total Score: 4 01/22/20 22 1:54 PM EST documented as of this encounter Care Teams [employer] Field Technician Relationship Specialty Start Date End Date Rufus De Luna MD [address] [place] [address] [email or web address] PCP - General Internal Medicine 12/04/21 Rufus De Luna MD [address] [place] [address] [email or web address] Insurance Assigned Provider 06/13/23 documented as of this encounter Additional Source Comments The information contained in this document represents components of the legal health record. It is not the complete legal health record.[facility]
--- OUTSIDE RECORDS SUMMARY | 2025-02-10 20:07 | XMS_ITS | Encounter Summary ---
Author Organization [facility] Address [address] [place] [address] Phone Care Team Providers Care Hvac Designer Name Role Phone Rufus De Luna MD Primary Care Provider [phone] Rufus De Luna MD Unavailable Encounter Details Date Type Department Care Team (Late st Contact Info) Description 12/04/2021 Procedure Pass [facility] [address] [place] [address] Social History Tobacco Use Types Packs/Day Years [...] Date of Assessment Author No Risk Indicated 12/04/2021 3:56 PM EDT Farzaneh Salomon RN * [place] Suicide Severity Rating Scale (Screener/Recent Self-Report) Question Answer Date of Assessment Author 1. Wish to be (Past 1 Month) No 12/04/2021 3:56 PM EDT Farzaneh Salomon RN 2. Non-Specific Active Suicidal Thoughts (Past 1 Month) No 12/04/2021 3:56 PM EDT Farzaneh Salomon RN 6. Suicidal Behavior (Lifetime) No 12/04/2021 3:56 PM EDT Farzaneh Salomon RN documented as of this encounter Plan of Treatment Upcoming Encounters Date Type Department Care Team (Late st Contact Info) Description 02/13/2025 2:30 AM EST Appointment [facility] [address] [place] [phone] Nilam Mann RN [address] [place] [address] [email or web address] 02/16/2025 12:30 AM EST Appointment [facility] [address] [place] [phone] Nilam Mann RN [address] [place] [address] [email or web address] 02/20/2025 3:00 AM EST Appointment [facility] [address] [place] [phone] Nilam Mann RN [address] [place] [address] [email or web address] 02/23/2025 1:00 AM EST Appointment [facility] [address] [place] [phone] Nilam Mann RN [address] [place] [address] [email or web address] 02/27/2025 2:30 AM EST Appointment [facility] [address] [place] [phone] Nilam Mann RN [address] [place] [address] 03/02/2025 12:30 AM EST Appointment [facility] [address] [place] [address] Nilam Mann RN [address] [place] [address] 03/06/2025 1:00 AM EST Appointment [facility] [address] [place] [address] Nilam Mann RN [address] [place] [address] 03/09/2025 Appointment [facility] [address] [place] [phone] AndNilam Ghotra RN [address] [place] [address] 07/10/2025 1:30 PM EDT Office Visit [facility] [address] [place] [address] Rufus De Luna MD [address] [place] [address] [email or web address] documented as of this encounter Visit Diagnoses [...] documented as of this encounter Care Teams Hvac Designer Relationship Specialty Start Date End Date Rufus De Luna MD [address] [place] [address] [email or web address] PCP - General Internal Medicine 12/04/21 Rufus De Luna MD [address] [place] [address] [email or web address] Insurance Assigned Provider 06/13/23 documented as of this encounter Additional Source Comments The information contained in this document represents components of the legal health record. It is not the complete legal health record.[facility]
--- OUTSIDE RECORDS SUMMARY | 2025-02-10 20:07 | XMS_ITS | Clinical Summary ---
Author Organization [facility] Address [address] [place] [address] Phone Care Team Providers Care District Adviser Name Role Phone Rufus De Luna MD Primary Care Provider [phone] Rufus De Luna MD Unavailable Allergies Active Allergy Reactions Criticality Noted Date Comments Pears [place] 08/28/2022 Medications cholecalciferol (VITAMIN D3) 25 MCG (1,000 unit) tablet Take 1,000 Units by mouth daily. 022 Active nebulizer accessories (NEBULIZER MISC) by Miscellaneous route. Active ipratropium-alb uteroL (DUONEB) 0.5-3 mg (2.5 mg base)/3 mL nebulizer solution Take 3 mL by nebulization every 6 (six) hours as needed for wheezing. DX code: J44.9, J96.12 90 mL 3 023 Active albuterol (PROAIR HFA) 90 mcg/actuation inhalerIndicati ons:COPD (chronic obstructive pulmonary disease) Inhale 2 puffs into the lungs every 6 (six) hours as needed for wheezing. 8 g 5 023 Active polyethylene glycol (MIRALAX) 17 gram packet Take 17 g by mouth daily as needed. 023 Active docusate sodium (COLACE) 100 MG capsule Take 100 mg by mouth 2 (two) times a day. 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 1 each 023 Active bisacodyl (DULCOLAX, BISACODYL,) 5 mg EC tablet Take 1 tablet (5 mg total) by mouth daily as needed for constipation. 20 tablet 023 Active ONETOUCH VERIO FLEX METER Misc meterIndication s:Diabetes mellitus by Miscellaneous route 3 (three) times a day before meals. USED TO TEST GLUCOSE 3 TIMES DAILY DX E11.9 1 each 023 Active ONETOUCH VERIO Strp stripsIndicatio ns:Diabetes mellitus 1 each by Miscellaneous route 3 (three) times a day before meals. DX E11.9 260 strip 3 023 Active ONETOUCH DELICA PLUS LANC DEV KitIndications: Diabetes mellitus 1 each by Miscellaneous route 3 (three) times a day before meals. Dx: E11.9 260 kit 3 023 Active cyclobenzaprine (FLEXERIL) 5 MG tabletIndicatio ns:Acute bilateral low back pain with sciatica, sciatica laterality unspecified TAKE 1 TABLET (5 MG TOTAL) BY MOUTH 2 (TWO) TIMES A DAY NEEDED (BACK SPASMS). 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 10 DAYS BOTH LEGS 60 g 1 025 Active furosemide (LASIX) 40 MG tablet Take 40 mg by mouth daily. Not taking currently as per reports 025 Active ELIQUIS 5 mg tabletIndicatio ns:A-fib TAKE 1 TABLET BY MOUTH TWICE A DAY 180 tablet 3 025 Active TRELEGY ELLIPTA 100-62.5-25 mcg inhalation powder Inhale 1 puff into the lungs daily. 180 each 2 025 Active gabapentin (NEURONTIN) 600 MG tabletIndicatio ns:Cauda equina compression Take 1 tablet (600 mg total) by mouth 3 (three) times a day. 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 100 each 3 025 Active losartan (COZAAR) 50 MG tabletIndicatio ns:Primary hypertension Take 1 tablet (50 mg total) by mouth daily. 90 tablet 3 025 Active hydrOXYzine (VISTARIL) 25 MG capsuleIndicati ons:Pruritus TAKE 1 CAPSULE BY MOUTH 3 TIMES A DAY NEEDED FOR ITCHING. 270 capsule 1 025 Active diaper,brief,ad ult,disposable (UNDERGARMENT) MiscIndications :Functional urinary incontinence,Ca uda equina compression 2 boxes of 120/box/month Matilda active super plus XL size undergarments, change q 3 hours as needed 240 each 11 025 Active tamsulosin (FLOMAX) 0.4 mg Cap Take 1 capsule (0.4 mg total) by mouth nightly at bedtime. 30 capsule 6 025 Active famotidine (PEPCID) 20 MG tabletIndicatio ns:Gastroesopha geal reflux disease without esophagitis Take 1 tablet (20 mg total) by mouth 2 (two) times a day. 180 tablet 1 025 Active cephalexin (KEFLEX) 500 MG capsuleIndicati ons:Cellulitis of right leg Take 1 capsule (500 mg total) by mouth 4 (four) times a day. 40 capsule 025 Active Additional Information Patient not taking.Reason: Therapy complete, Reported on 02/08/2025 rosuvastatin (CRESTOR) 20 MG tabletIndicatio ns:Dyslipidemia TAKE 1 TABLET BY MOUTH EVERY DAY 90 tablet 1 025 Active nystatin creamIndication s:Intertrigo Apply topically 2 (two) times a day. Abdominal folds 90 g 3 025 Active citalopram (CELEXA) 20 MG tablet Take 1 tablet (20 mg total) by mouth daily. 90 tablet 3 025 Active oxyCODONE HCl 10 mg TabIndications: Cauda equina compression Take 1 tablet (10 mg total) by mouth every 6 (six) hours as needed (back pain). Partial fill ok 112 tablet 025 Active metoprolol succinate (TOPROL-XL) 50 MG 24 hr tabletIndicatio ns:Primary hypertension TAKE 1 TABLET BY MOUTH DAILY. 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 100 each 3 025 Active nystatin creamIndication s:Intertrigo Apply topically 2 (two) times a day. 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 100 each 3 024 2024 Discontinued metoprolol succinate (TOPROL-XL) 50 MG 24 hr tabletIndicatio ns:Primary hypertension Take 1 tablet (50 mg total) by mouth daily. 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 Partial fill ok 112 tablet 025 2024 Discontinued(R eorder) rosuvastatin (CRESTOR) 20 MG tabletIndicatio ns:Dyslipidemia Take 1 tablet (20 mg total) by mouth daily. 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 DVT unlikely as he is fully anticoagulated with Eliquis -Patient does not think he has had a vascular workup in the past (would need to confirm this as he has been seen at [facility] and leg wounds have been going on for several years) Venous duplex largely normal. Wound nurse consult Discussed with ID, not likelly infected, will d/c antibiotics Assessment & Plan (01/27/2024 12:37 PM EST): -Patient with chronic bilateral leg wounds and stasis dermatitis was sent to the ED today by his VNA that noticed worsening drainage -Patient presented with a low-grade fever of 100.6, UA negative, influenza and COVID swabs negative, no leukocytosis, no left shift, normal lactate, source of infection appears to be bilateral leg cellulitis. DVT unlikely as he is fully anticoagulated with Eliquis -Patient does not think he has had a vascular workup in the past (would need to confirm this as he has been seen at [facility] and leg wounds have been going on for several years) -Started on IV vancomycin in the ED MRSA screen is negative, however now has GPC in blood so will cover for MRSA until with have C+S. Wound nurse consult Venous duplex bilaterally Assessment & Plan (01/26/2024 8:12 PM EST): -Patient with chronic bilateral leg wounds and stasis dermatitis was sent to the ED today by his VNA that noticed worsening drainage -Patient presented with a low-grade fever of 100.6, UA negative, influenza and COVID swabs negative, no leukocytosis, no left shift, normal lactate, source of infection appears to be bilateral leg cellulitis. DVT unlikely as he is fully anticoagulated with Eliquis -Patient does not think he has had a vascular workup in the past (would need to confirm this as he has been seen at [facility] and leg wounds have been going on for several years) -Started on IV vancomycin in the ED -Follow-up MRSA screen -Follow-up blood cultures -Follow-up wound care consult CHF (congestive heart failure) 01/26/2024 Assessment & Plan (01/28/2024 3:52 PM EST): -Unclear if patient is still on bumex -Eplerenone is nonformulary -Monitor I/Os and check daily weights Assessment & Plan (01/27/2024 12:37 PM EST): -Unclear if patient is still on bumex -Eplerenone is nonformulary -Monitor I/Os and check daily weights Assessment & Plan (01/26/2024 8:12 PM EST): -Unclear if patient is still on bumex -Eplerenone is nonformulary -Monitor I/Os and check daily weights Type 2 diabetes mellitus wit h microalbuminuria, with long-term current use of insulin 07/08/2023 Assessment & Plan (02/08/2025 5:00 PM EST): His hemoglobin A1c is 8.0 but currently [...] of Mounjaro. The patient weighs over 300 pounds and he is sedentary. Apparently he does not eat much but he sneaks food such as junk food throughout the day which results in elevated glucose levels. He does not have pancreatitis. Assessment & Plan (12/24/2023 11:46 AM EDT): Fair control based on GMI of 8.0%. Given age and comorbidities I do not recommend aggressive A1c goals of less than 7%. The [place] [employer] recommends a goal of A1c of 7.5 to 8% in older patients with moderate comorbidities and life expectancy less than 10 years. The [place] diabetes Association recommends a goal of less than 7.5% in patients with few comorbidities and significant life expectancy, a goal of less than 8% in patients with intermediate life expectancy and multiple chronic comorbidities, and a more relaxed goal of 8-8.5% in older patients with very complex medical issues/poor health and a limited health expectancy. He has visiting nurse which apparently is employed from [facility] and all his doctors are [facility] yet she sent for lab work to [facility]. This does not make any sense and I advised the patient's to asked the nurse to send the lab work to [facility] because we do not have access to it. So at this point I will request lab work again for the follow-up visit in 6 months. I am not can make any changes to his regimen because apparently he has episodes of hypoglycemia not severe but the alarm keeps ringing below 80 mg/dL and she has to treat with orange juice. Apparently there are narrow skull down into the 40s range at times. Because of his other comorbid conditions we are not going to be aggressive he is 78 years old and a GMI of 8.0% is good enough. He is off Mounjaro I would not be prescribing this medication again in fact he never used it. So from now on he should just follow in 6 months time. Assessment & Plan (09/14/2023 11:03 AM EDT): Based on the fructosamine his hemoglobin A1c is not bad it correlates with an A1c of 7.1% but glucose levels correlate with a hemoglobin A1c of 8% and he is has 65% of the glucose above the reference range only 34% in range. He states that sometimes overnight the glucose levels dropped to 80 mg/dL and he does not feel well with glucose levels less than 100 mg/dL. So I told the patient and his that they should use to rule 15. This means have 15 g of carbohydrates and keep repeating the glucose level every 15 minutes and continue having 15 g of carbohydrates until the glucose levels rise above 100 mg/dL. In the meantime he is having postprandial hyperglycemia and does not want to use Mounjaro so I had no choice but to increase the Humulin U-500 to 65 units twice a day. I asked him to schedule follow-up visit for 6 weeks as opposed to 3 months although this may be hard to obtain because about scheduling. Assessment & Plan (07/08/2023 5:04 PM EDT): Uncontrolled. His hemoglobin A1c supposedly 8.1% but is not accurate based on his glucose of 300 his hemoglobin A1c is closer to 10.6%. I have increased the Humulin U-500 to 55 units twice a day with food. Also prescribed Mounjaro 2.5 mg starting dose. He apparently does not have history of pancreatitis. I requested prior to procedure for Mounjaro. I would like to get the patient to follow-up in 6 weeks time. Lab work needs to be done fasting. The patient's requested that the visiting nurse from [facility] obtain lab which is fine by me but I do know how to coordinate this. The patient's will inquire from the visiting nurse and we can try to coordinate this with our nurse. Cellulitis of right leg 09/05/2022 Assessment & Plan (09/05/2022 1:45 PM EDT): Venous stasis wounds, ulcers x3 right lateral young surrounded with bright redness indicative of cellulitis versus venous stasis. Will treat for 10 days with Augmentin and have the VNA come back for wound care. Patient should now use the continual glucose monitoring and obtain data to show to the secondary art teacher so that on the upcoming appointment carlin changes can be made to the insulin doses or add on treatment. Also continuous glucose monitoring good for further episodes of hypoglycemia for which the patient had. Hypoglycemia 09/05/2022 Hyperlipidemia LDL goal <100 08/28/2022 Assessment & Plan (02/08/2025 4:55 PM EST): Controlled, LDL is 39 mg/dl, continue rosuvastatin 20. Assessment & Plan (08/05/2024 12:37 PM EDT): Controlled. LDL 29 mg/dL continue Lipitor 80. Assessment & Plan (12/24/2023 11:46 AM EDT): Controlled. LDL 31 mg/dL. He should continue atorvastatin 80 mg no changes required. Assessment & Plan (09/14/2023 11:05 AM EDT): Controlled. LDL is 31 mg/dL on atorvastatin 80 no changes required. Assessment & Plan (07/08/2023 5:05 PM EDT): Controlled LDL 25 mg/dL on atorvastatin 80 mg no changes required. Assessment & Plan (01/14/2023 12:51 PM EST): Controlled. LDL 25 mg/dL on atorvastatin 80 mg no changes required. Assessment & Plan (12/24/2022 3:05 PM EDT): Controlled. LDL 25 mg/dL continue atorvastatin 80 no changes required. Assessment & Plan (08/28/2022 1:40 PM EDT): Controlled. LDL 25 mg on atorvastatin 80 mg. Unclear why he is on such a high dose. He states that he does not have any coronary artery disease or peripheral vascular disease. Anyway he should continue the medication possibly the medication can be decreased to a lower dose but I really do not know much about the patient to make any changes now. Cauda equina compression 06/11/2022 Assessment & Plan (07/27/2023 5:33 PM EDT): We favor that a catheter is placed either suprapubic or Marte since the urinary incontinence and frequency of urination is chronic and not changing. Patient will have the urine tox screen presented and will return at for evaluation. May maintain on the low-dose oxycodone 10 mg 4 times daily. Assessment & Plan (06/11/2022 6:06 PM EDT): Cauda equina syndrome with leg weakness saddle paresthesias and urinary incontinence. Urgent consult with [facility] neurosurgery will be arranged. A prescription for hospital bed electric and prescription for power wheelchair was prescribed. We will fill out the paperwork associated with it. Depending on the neurosurgical consult patient could require urgent surgery then transfer possibly to a different rehab facility for example [facility] in [place] before occupying his new apartment. Tentatively the new apartment will be ready for and in early July. As such it would be good to have the hospital bed and power wheelchair ready by then. Intractable pain 04/27/2022 Assessment & Plan (04/28/2022 11:41 AM EST): -Patient with chronic back pain and mobility issues requiring wheelchair -Worsened pain and decreased mobility over the last week, patient's who is the primary care provider has been ill and this may have been a factor. -MRI performed in the ED showed multilevel degenerative changes. Disc desiccation, disc bulges and facet arthropathy -Initially given IV morphine, transitioned to oral medications, scheduled Tylenol and lidocaine, Flexeril if needed along with oxycodone -PT OT, patient and family are hoping for acute rehab in [place] -Bowel regimen initiated HTN (hypertension) 04/27/2022 Assessment & Plan (01/28/2024 3:52 PM EST): -BP controlled -Continue toprol xl, previously on losartan but does not appear to be on this any longer Assessment & Plan (01/27/2024 12:37 PM EST): -BP controlled -Continue toprol xl, previously on losartan but does not appear to be on this any longer Assessment & Plan (01/26/2024 8:12 PM EST): -BP controlled -Continue toprol xl, previously on losartan but does not appear to be on this any longer Assessment & Plan (04/28/2022 8:47 AM EST): -BP initially elevated likely due to pain and missed doses of medicines -Continue Bumex, eplerenone, cozaar, toprol xl Influenza A 02/27/2022 Assessment & Plan (02/28/2022 5:48 PM EST): Presented with mild hypoxia, cough and wheezing Much improved over last 24-hour -- Continue Tamiflu Chronic respiratory failure with hypercapnia Assessment & Plan (02/28/2022 5:52 PM EST): states patient was on chronic O2 in [place], but hasnt been on it while here. Appears he did not qualify after his last hospitalization. ABG here demonstrates well compensated respiratory acidosis. He certainly appears likely to require night time BIPAP or the like based on body habitus and witnessed sleep breathing. Developed wheezing on . Improved with steroids and breathing treatments -- DC IV Solu-Medrol and start oral prednisone in a.m. -- Continue nebulizers -- Consider home O2 eval if he is desaturating with ambulation Venous stasis ulcer of right ankle limited to breakdown of skin without varicose veins 02/27/2022 Assessment & Plan (02/27/2022 2:22 AM EST): Severe chronic dermatitis with some blistering and oozing as well as pitting edema. Pt is on diurectic therapy however ECHO shows normal EF due to afib was not able to assess DDysfunction. This seems most likely to be chronic lymphedema related to morbid obesity than CHF as it is not described as fluctuating with respiratory status, not affected by diurectic therapy per history. Recommend nutrition counseling and weight loss as well as local wound care. Perhaps outpatient referall for fitting of easy to use compression garment such as Juxtafits Wound care consult placed Choledocholithiasis 01/21/2022 Assessment & Plan (01/21/2022 7:35 PM EST): Choledocholithiasis as resolved with the ERCP, patient should follow-up with general surgery regarding a not too distant future cholecystectomy. Pruritus 01/21/2022 Assessment & Plan (01/21/2022 7:37 PM EST): Atarax was written for the itchiness of skin, Lasix will be stopped and instead Bumex, no topicals for the rash. Multiple open wounds of lower leg 12/24/2021 Assessment & Plan (01/21/2022 7:37 PM EST): Regarding the lower extremity edema and wounds we have a VNA coming to see the patient and orders are being signed for them to perform wound care. We will swap out the Lasix which is causing itchy rash and instead Bumex at 1 mg daily. We will follow-up with labs and see if we can get another weight. Will have to follow-up with video visits but I will see the patient back in 3 months as well. Assessment & Plan (12/24/2021 6:56 PM EDT): For now lower extremity edema reduce with Lasix 20 mg daily which will be the substitute for the HCTZ that he was on. Will have VNA check electrolytes kidney function later on. VNA to inspect wounds and suggest treatment be medicated gauze or dry sterile. Consider Unna boots later once patient doing better. Panniculitis 12/24/2021 Assessment & Plan (01/21/2022 7:35 PM EST): This panniculitis is not severe but is irritating to the patient. Will switch treatment with clotrimazole and consider other add-ons. Will give the clotrimazole about 14 days to see if it is effective. Assessment & Plan (12/24/2021 6:55 PM EDT): In the video was able to see the extensive wound, most likely fungal, trial of nystatin for yeast infection, powder twice daily under abdominal fold. VNA to monitor and then report to primary care. Obesities, morbid 12/10/2021 Assessment & Plan (01/21/2022 7:33 PM EST): This is obesity with severe complications including the large pannus, concern of hypoventilation syndrome at exacerbating COPD. The patient will have a lot of difficulty losing weight as he cannot exercise in his current health and then also the insulin requirement is keeping weight on. Perhaps we can get the patient to outpatient nutrition to see whether weight loss can be achieved. Bacteremia due to Gram-positive bacteria 022 Assessment & Plan (01/28/2024 3:52 PM EST): Coag neg staph, contaminant. D/c vanc Assessment & Plan (01/27/2024 12:37 PM EST): Blood cultures positive for GPC in pairs and clusters Will continue vanc until we are sure it is not MRSA ID consult Assessment & Plan (12/09/2021 3:27 PM EDT): Chest x-ray unremarkable and UA not suggestive of UTI. CT abd pelvis w/o source of infection. Blood cultures form 12/[address]rec[address] Parekh's help/antibiotic choice. Unasyn through the hospital stay, appropriate oral de-escalation after stone removalfor 7 days ERCP 12/09. DW Dr Post, she will see to help plan interval cholecystectomy. 03/12 blood cultures from the became positive on the third, ended up being coag negative staph. A-fib 12/04/2021 Assessment & Plan (01/28/2024 3:52 PM EST): -HR currently controlled -Continue bb -Continue anticoagulation with Eliquis Assessment & Plan (01/27/2024 12:37 PM EST): -HR currently controlled -Continue bb -Continue anticoagulation with Eliquis Assessment & Plan (01/26/2024 8:12 PM EST): -HR currently controlled -Continue bb -Continue anticoagulation with Eliquis Assessment & Plan (04/28/2022 8:46 AM EST): - Stable heart rate continue Toprol XL -Continue anticoagulation with Eliquis Assessment & Plan (02/27/2022 2:15 AM EST): Now in sinus rhythm. Continue losartan, metoprolol and eliquis Assessment & Plan (01/21/2022 7:38 PM EST): The patient's atrial fibrillation is rate controlled with metoprolol adequately. Most recently electrolytes were assessed. Patient appropriately on apixaban for anticoagulation. It would be reasonable to refer the patient to cardiology for further assessment for example nuclear stress test and to assess if diastolic failure. The patient is on both Cozaar and eplerenone with normal potassium levels. This may be something that needs to be looked into. Perhaps the potassium elevation is offset by loop diuretics. Will obtain through [facility] further electrolyte panels. A total of 45 minutes of [id number] time with the patient with additional 20 minutes to review the chart regarding hospitalization, labs, imaging reports, consultation reports. Assessment & Plan (12/24/2021 6:54 PM EDT): The rate may be controlled now with the metoprolol. We will have the [facility] go in and check pulse, O2 sat and blood pressure for treatment management of A. fib and hypertension. Assessment & Plan (12/09/2021 3:24 PM EDT): New diagnosis. May be triggered by sepsis, also longstanding hx of uncontrolled HTN. Elevated but downtrending troponin on admission. TTE 12/05 was technically difficult due to patient body habitus, normal EF 60 to 65%, no regional wall motion abnormalities, diastolic function cannot be assessed in the setting of A. Fib. No evidence of hemodynamically significant valvular disease. -- CHADS2 score is 3, initiated on apixaban, held for ERCP Thursday. Will ask GI when okay to restart post ERCP. Rate is reasonably controlled. Diabetes mellitus 12/04/2021 Assessment & Plan (08/05/2024 12:39 PM EDT): Uncontrolled. Average glucose 267 mg/dL based on this his hemoglobin A1c was 10.9%. There is no evidence of hypoglycemia on the CGM in the last 2 weeks but there is reported hypoglycemia where he is feeling horrible with glucose of 70 and 80. So it really does not make much sense and I will say that he needs to increase his Humulin and U-500 he has not changed the dose from before yet his glycemic level was worse so he must be eating inappropriate foods because we do have not changed the regimen and yet he is doing so much worse than before. There really needs to be some accountability about food intake if I am not supposed to increase his insulin regimen because of suppose it hypoglycemia which unfortunately I have not been able to document or confirm. As at this point I am not going to make any changes I have ordered hemoglobin A1c and fructosamine for the follow-up visit in 3 months he should continue the current regimen that he is on and I have requested that a visiting nurse go see him at least prior to the follow-up visit to obtain lab work since he cannot come in to the office because apparently he is not mobile. Assessment & Plan (01/28/2024 3:52 PM EST): -Patient is on U-500 50 units in am and 45 units pm, wishes to use home U- 500 pen -Monitor point of care, cover with insulin sliding scale as needed -Follow up hba1c Assessment & Plan (01/27/2024 12:37 PM EST): -Patient is on U-500 50 units in am and 45 units pm, wishes to use home U- 500 pen -Monitor point of care, cover with insulin sliding scale as needed -Follow up hba1c Assessment & Plan (01/26/2024 8:12 PM EST): -Patient is on U-500 50 units in am and 45 units pm, wishes to use home U- 500 pen -Monitor point of care, cover with insulin sliding scale as needed -Follow up hba1c Assessment & Plan (01/14/2023 1:00 PM EST): Uncontrolled despite last hemoglobin A1c of 6.9% on 09/05/2022. Average glucose is 264 mg/dL which is consistent with a hemoglobin A1c 10.8%. I advised the patient to increase the Humulin U-500 to 45 units twice a day. In 3 days if the glucose levels have not increased he can increase it by 5 units to 50 units twice a day and continue increasing by 5 units every third day until his glucose levels drop below 180 mg/dL but of course we have to be careful of hypoglycemia especially morning fasting glucose this should not drop below 70 mg/dl in his case we want to keep it above 90 mg/dL. I would say we would aim for fasting glucose anywhere from 120 to 130 mg/dL in the morning as long as there is no symptoms of hypoglycemia. Assessment & Plan (12/24/2022 3:11 PM EDT): Based on hemoglobin A1c of 6.9% it would appear that he is controlled but this hemoglobin A1c is too low for his age range. In fact he is symptomatic with glucose levels less than 70 mg/dL. As a result his not using Humulin U-500 in the evening and if he does use it is using it at an inappropriate time resulting in postprandial hyperglycemia but thankfully no hypoglycemia. He is having lower glucose levels after lunch despite eating lunch. He is not administering any insulin at lunchtime. He does administer insulin in the morning before breakfast. However he does not always administer 30 minutes before hand. So even worse it turns out that the patient has been using her regular insulin syringe to administer Humulin U-500. So if he is using 15 units in the morning this is the same as using 75 units. And the 5 units in the evening is the same as using 25 units. So this apparently has been too much insulin. So I have prescribed Humulin U-500 pen. I have instructed the patient's on how to apply pen needle onto the U-500 pen. He is going to use 30 units in the morning. So the plan is calibrated to give him exactly 30 units. He should not use a syringe with the pen. In the evening he is going to use 15 units before dinner. In the meantime he does not have the Humulin U-500 pen. So he needs to draw up last insulin for dinner. So instead of drawing up 5 units to only draw up 3 units. For tomorrow morning if he still does not have the Humulin U-500 pen he should administer 6 units. I will try to give the patient a follow-up appointment in a month. I have instructed the patient to contact me through the patient portal so that we can review the glucose levels and adjust her insulin regimen. Assessment & Plan (08/28/2022 1:36 PM EDT): Controlled. Last hemoglobin A1c 11.6%. He is back to using Humulin U-500 20 units in the morning and 5 units in the evening. Advised to use this medication with food because it has both short and long-acting action. He does not monitor glucose levels often he would like CGM and I have prescribed a Dexcom G7. I am not going to change his regimen because I do not have any glycemic levels that he has been using this medication now for the last 6 weeks. With the Dexcom G7 that should hopefully be able to see glycemic levels and maybe we can make adjustments. However if he does not get the Dexcom G7 before the next visit advised to monitor glucose at least twice a day 2 weeks prior to the follow-up visit. He should always check a fasting glucose and a second alternating between lunch, dinner and bedtime. I have given the patient a log sheet to document this. Assessment & Plan (04/28/2022 8:46 AM EST): -Continue U500 25u in am and 5u in pm -Glucose stable overnight in the 170s -Sliding scale -A1c is 7.6 Assessment & Plan (02/28/2022 5:50 PM EST): Very poorly controled on BID insulin only. With report of multiple hypoglycemic events at home requiring EMS attention as well as history of marked weight gain since starting insulin. They have been trying to get an apt with endocrinology to consider Jardiance or other new agents as well as for insulin optimization but they have not yet received one. More hypoglycemia due to steroids improved this afternoon --Give second dose of Lantus this evening and add mealtime insulin -- Checked improvement in blood sugar control with de-escalation of steroids -- Consistent carbohydrate diet Assessment & Plan (01/21/2022 7:34 PM EST): Insulin-dependent type 2 diabetes with A1c between 9 and 10%, would like to have [facility] endocrinology assessed the patient's current insulin regimen and see if he would benefit from a different paradigm both from the standpoint of weight loss and diabetes control. Assessment & Plan (12/24/2021 6:54 PM EDT): Complicating the patient's wound management is the patient's diabetes. Suggest that [facility] check blood sugar and we will adjust the insulin according to the blood sugars. Assessment & Plan (12/09/2021 3:29 PM EDT): Currently, blood sugars in the 300s. A1c 9.6 He takes U500 at home 20 units in the morning and 10 units in the afternoon, pharmacist think he is using the wrong insulin needles at home. Pharmacy has adjusted his dose to our preparation and is getting 100 units in the morning and 50 units at night. 10/3 am dose was held altogether because we did not know the timing of the ERCP early on, for the first time in days his blood sugar was actually very well controlled we did want to have hypoglycemia. Plan to go back to the prior regimen after the ERCP COPD (chronic obstructive pulmonary disease) Assessment & Plan (01/28/2024 3:52 PM EST): -Currently no SOB or wheezing -Continue prn albuterol -Trelegy is nonformulary, will ask family to bring from home Assessment & Plan (01/27/2024 12:37 PM EST): -Currently no SOB or wheezing -Continue prn albuterol -Trelegy is nonformulary, will ask family to bring from home Assessment & Plan (01/26/2024 8:12 PM EST): -Currently no SOB or wheezing -Continue prn albuterol -Trelegy is nonformulary, will ask family to bring from home Assessment & Plan (09/05/2022 1:43 PM EDT): Breathing right now not an issue, patient's breathing is good and he can speak full sentences. Lungs are clear, will continue to follow, albuterol prescribed. Assessment & Plan (04/27/2022 6:03 PM EST): -Continue prn albuterol -Trelegy is nonformulary Assessment & Plan (01/21/2022 7:32 PM EST): The COPD could be smoke inhalation induced. He has been on O2 support for a long time. Continue Trelegy, will work with the respiratory care company to provide patient oxygen. We will use the records from [place] to justify continuing prescription of O2 support. Consider pulmonology consultation. Assessment & Plan (12/06/2021 5:55 PM EDT): History of COPD. No past tobacco use. He has required oxygen in the past. Uses Trelegy Not currently in exacerbation Trelegy here. Encounters Date Type Department Care Team Description 02/09/2025 12:30 PM EST Home Care Visit [facility] [address] [place] [address] Veronique Rubio LPN LPN HOME VISIT 02/09/2025 Telephone [facility] [address] [place] [address] Rach Lomax [place] 02/08/2025 4:00 PM EST Telemedicine [facility] [address] [place] [address] Sam Gonzalez DO Type 2 diabetes mellitus with microalbuminuria, with long-term current use of insulin (Primary Dx); Type 2 diabetes mellitus with diabetic neuropathy, with long-term current use of insulin; Hyperlipidemia LDL goal <70 02/06/2025 10:15 AM EST Home Care Visit [facility] [address] [place] [address] Veronique Rubio LPN HYDRAULIC REPAIRER HOME VISIT 02/02/2025 11:30 AM EST Home Care Visit [facility] [address] [place] [address] Lizzy Maciel RN SN HOME VISIT 01/31/2025 Home Care Visit [facility] [address] [place] [address] Myles Gaines, [place] CASE COMMUNICATION 01/30/2025 2:15 PM EST Home Care Visit [facility] [address] [place] [address] Myles Gaines, [place] SN HOME VISIT 01/30/2025 Telephone [facility] [address] [place], [place] [phone] Padma Olsen, [place] [facility] Update 01/27/2025 Telephone [facility] Endocrinology [address] [place] [address] Sam Gonzalez DO Medication Problem 01/26/2025 10:00 AM EST Home Care Visit [facility] [address] [place] [address] Sushil Yepez, [place] SN HOME VISIT 01/25/2025 Episode Documentation Update [facility] [address] [place] [address] Thelma Trevino 01/24/2025 Telephone [facility] [address] [place], [place] [phone] Rufus De Luna MD ORDERS 01/23/2025 1:45 PM EST Home Care Visit [facility] [address] [place] [address] Veronique Rubio LPN HYDRAULIC REPAIRER HOME VISIT 01/23/2025 Refill [facility] [address] [place], [place] [phone] Rufus De Luna MD Med Change Request 01/19/2025 12:30 PM EST Home Care Visit [facility] [address] [place] [phone] Veronique Rubio LPN HYDRAULIC REPAIRER HOME VISIT 01/19/2025 Refill [facility] [address] [place], [place] [phone] Rufus De Luna MD Medication Refill 01/16/2025 2:00 PM EST Home Care Visit [facility] [address] [place] [address] Ghazal Waldrop RN SN HOME VISIT 01/14/2025 Refill [facility] [address] [place] [address] Sam Gonzalez DO Medication Refill 01/12/2025 Telephone [facility] [address] [place], [place] [phone] Rufus De Luna MD 01/12/2025 Telephone [facility] [address] [place], [place] [phone] Rufus De Luna MD Forms & Paperwork 01/11/2025 12:30 PM EST [facility] [address] [place] [phone] Ghazal Waldrop RN SN OASIS START OF CARE (SOC) 01/11/2025 Telephone [facility] [address] [place] [address] Rufus De Luna MD Wound Care 01/11/2025 Plan of Care Documentation [facility] [address] [place] [phone] 01/10/2025 Home Care Visit [facility] [address] [place] [phone] Chayo Ramos, [place] CASE COMMUNICATION 01/09/2025 Telephone [facility] [address] [place] [address] Rufus De Luna MD Rosuvastatin Clarification 01/09/2025 Telephone [facility] [address] [place] [address] Barrera, Stone Medication Prior Authorization (Rosuvastatin) 01/06/2025 Refill [facility] [address] [place], [place] [phone] Rufus De Luna MD Med Change Request 01/04/2025 Orders Only [facility] [address] [place] [address] Rufus De Luna MD Cellulitis of right leg (Primary Dx) 2025 3:02 PM EDT - 2025 11:59 PM EDT Hospital Encounter [facility] [address] [place] [address] Rufus De Luna MD Discharge Disposition: Home or Self Care 2025 2:00 PM EDT Office Visit [facility] [address] [place] [address] Rufus De Luna MD Type 2 diabetes mellitus with microalbuminuria, with long-term current use of insulin (Primary Dx); Obesities, morbid; Cauda equina compression; Chronic congestive heart failure, unspecified heart failure type; Persistent atrial fibrillation; Simple chronic bronchitis; Venous stasis ulcer of right ankle limited to breakdown of skin without varicose veins; Dyslipidemia; Gastroesophageal reflux disease without esophagitis 2025 Refill [facility] [address] [place] [address] Rufus De Luna MD Med Change Request 2025 Orders Only [facility] [address] [place] [phone] Homehealth, Interface ProviderMD from Last 3 Months Immunizations Immunization Administration Dates Next Due COVID-19 (Pre-12/29) Pfizer Vaccine, mRNA, PF 06/25/2021,07/11/2020,06/19/2020 COVID-19 [facility] ccine 12+ 04/23/2023 Influenza High-Dose Quadriva lent Preservative Free IM 04/28/2022(Deferred: Contraindication - pt reports adverse reactions) Family History Medical History Relation Comments Prostate cancer Brother Asbestosis Father Heart failure Mother Relation Status Comments Brother Alive Father Mother Social History Tobacco Use Types Packs/Day Years Used Date Smoking Tobacco: Never Smokeless Tobacco: Never Tobacco Cessation:Counseling Given: Not Answered Alcohol Use Standard Drinks/Week Comments Not Currently [...] with others, in a hotel, in a fdc, living outside on the street, on a [...] Orientation Straight 12/04/2021 3: 50 PM EDT Last Filed Vital Signs Vital Sign Reading Time Taken Comments Blood Pressure 128/82 02/06/2025 11:14 AM EST Pulse 63 02/06/2025 11:14 AM EST Temperature 36.7 C (98 F) 02/06/2025 11:14 AM EST Respiratory Rate 18 02/06/2025 11:14 AM EST Oxygen Saturation 98% 02/06/2025 11:14 AM EST Inhaled Oxygen Concentration - - Weight 142.4 kg (314 lb) 08/05/2024 12:21 PM EDT Height 170.2 cm (5' 7.01 ) 08/05/2024 12:21 PM E DT Body Mass Index 49.17 08/05/2024 12:21 PM EDT Plan of Treatment Upcoming Encounters Date Type Department Care Team (Late st Contact Info) Description 02/13/2025 2:30 AM EST Appointment [facility] [address] [place] [address] Nilam Mann RN [address] [place] [address] 02/16/2025 12:30 AM EST Appointment [facility] [address] [place], [place] [phone] Nilam Mann RN [address] [place] [address] [email or web address] 02/20/2025 3:00 AM EST Appointment [facility] [address] [place] [phone] AndNilam Ghotra, RN [address] [place] [address] [email or web address] 02/23/2025 1:00 AM EST Appointment [facility] [address] [place] [phone] AndNilam Ghotra, RN [address] [place] [address] [email or web address] 02/27/2025 2:30 AM EST Appointment [facility] [address] [place] [phone] AndNilam Ghotra, RN [address] [place] [address] [email or web address] 03/02/2025 12:30 AM EST Appointment [facility] [address] [place] [phone] AndNilam Ghotra, RN [address] [place] [address] [email or web address] 03/06/2025 1:00 AM EST Appointment [facility] [address] [place] [phone] AndNilam Ghotra, RN [address] [place] [address] [email or web address] 03/09/2025 Appointment [facility] [address] [place] [phone] AndNilam Ghotra, RN [address] [place] [address] 07/10/2025 1:30 PM EDT Office Visit [facility] [address] [place] [address] Rufus De Luna MD [address] [place] [address] [email or web address] Health Maintenance Due Date Last Done Comments Adult Td,Tdap Booster 1944 PNEUMOCOCCAL VACCINES (50+ years) (1 of 2 - PCV) 01/02/1963 ZOSTER VACCINES (1 of 2) 01/02/1994 RSV VACCINE (1 - 1-dose 75+ series) 01/02/2019 DIABETIC EYE EXAM 12/04/2021 INFLUENZA VACCINE (#1) 2024 COVID-19 VACCINE ( season) 2024 04/23/2023, 02/13/2022, 06/25/2021, Additional history exists REPEAT PHQ 02/02/2025 01/02/2025, 12/08, 03/06/2022, Additional history exists HEMOGLOBIN A1C 07/04/2025 2025, 03/10, 01/27/2024, Additional history exists BLOOD PRESSURE 08/07/2025 02/06/2025 DEPRESSION SCREENING 01/02/2026 01/02/2025, 01/02/2025, 03/06/2022, Additional history exists CREATININE LEVEL 2026 2025, , 01/28/2024, Additional history exists POTASSIUM LEVEL 2026 2025, 03/10, 01/28/2024, Additional history exists HEPATITIS A VACCINES Aged Out No long er eligible based on patient's age to complete this topic HIB VACCINES Aged Out No longer eligi ble based on patient's age to complete this topic MENINGOCOCCAL VACCINES (ACWY) Aged Out No longer eligible based on patient's age to complete this topic MENINGOCOCCAL VACCINES (B) Aged Out N o longer eligible based on patient's age to complete this topic Medical Devices Not on file Procedures Procedure Name Priority Date/Time Associated Diagnosis Comments CBC Routine 2025 3:03 PM EDT Chronic stasis dermatitis LIPID PANEL Routine 2025 3:03 PM EDT Type 2 diabetes mellitus with microalbuminuria, with long-term current use of insulin HEMOGLOBIN A1C Routine 2025 3:03 PM EDT Type 2 diabetes mellitus with microalbuminuria, with long-term current use of insulin C-REACTIVE PROTEIN (CRP) Routine 2025 3:03 PM EDT Venous stasis ulcer of right ankle limited to breakdown of skin without varicose veins COMPREHENSIVE METABOLIC PANEL (CMP) Routine 2025 3:03 PM EDT Obesities, morbid Venous stasis ulcer of right ankle limited to breakdown of skin without varicose veins TOXICOLOGY SCREEN, URINE Routine 2025 8:22 AM EDT Cauda equina compression from Last 3 Months Results * (ABNORMAL) Comprehensive metabolic panel (2025 3:03 PM EDT) SODIUM 137 133 - 146 mmol/L [facility] POTASSIUM 4.0 3.3 - 5.1 mmol/L [facility] CHLORIDE 102 96 - 108 mmol/L [facility] CO2 24 21 - 35 mmol/L [facility] BUN 12 6 - 19 mg/dL [facility] CREATININE 0.90 0.5 - 1.5 mg/dL [facility] GLUCOSE 96 70 - 99 mg/dL [facility] ALBUMIN 3.3(L) 3.9 - 4.8 g/dL [facility] TOTAL PROTEIN 7.5 6.5 - 8.0 g/dL [facility] CALCIUM 9.1 8.4 - 10.3 mg/dL [facility] ALKALINE PHOSPHATASE 157(H) 39 - 117 U/L [facility] TOTAL BILIRUBIN 0.6 0.0 - 1.2 mg/dL [facility] AST 18 0 - 37 U/L [facility] ALT 9 0 - 40 U/L [facility] GLOBULIN 4.2 1 - 4.8 g/dL [facility] EGFR 86 >59 mL/min/1.7 3m2 [facility] Comment:Estimated glomerular filtration rate calculated using the CKD-EPI refit equation. ANION GAP 15 10 - 20 mmol/L [facility] Blood 2025 3:03 PM EDT 2025 3:12 PM EDT us Rufus De Luna MD LAB BLOOD BKR ORDERABLES Final R esult Performing Organization Address City/[facility]/ZIP Co de Phone Number [address] [address] * (ABNORMAL) CBC (2025 3:03 PM EDT) WBC 10.27 4.00 - 11.00 K/uL [facility] RBC 5.22 4.50 - 5.90 M/uL [facility] HGB 14.4 13.5 - 17.5 g/dL [facility] HCT 45.4 41.0 - 53.0 % [facility] PLT 268 150 - 450 K/uL [facility] MCV 87.0 80.0 - 100.0 fL [facility] MCH 27.6 27.0 - 31.0 pg [facility] MCHC 31.7(L) 32.0 - 36.0 g/dL [facility] RDW 15.7(H) 11.5 - 14.5 % [facility] MPV 10.5 8.4 - 12.0 fL [facility] NRBC 0.00 0.00 /100 WBCs [facility] ABSOLUTE NRBC 0.00 0.00 K/uL [facility] Blood 2025 3:03 PM EDT 2025 3:12 PM EDT us Rufus De Luna MD LAB BLOOD BKR ORDERABLES Final R esult [address] [address] * (ABNORMAL) C-Reactive Protein (2025 3:03 PM EDT) [facility] C REACTIVE PROTEIN 29.7(H) 0.0 - 4.0 mg/L [facility] Blood 2025 3:03 PM EDT 2025 3:12 PM EDT Rufus De Luna MD LAB BLOOD BKR ORDERABLES Final R esult [address] [address] * (ABNORMAL) Hemoglobin A1c (2025 3:03 PM EDT) [facility] HEMOGLOBIN A1C 8.0(H) 4.3 - 5.8 % [facility] Blood 2025 3:03 PM EDT 2025 3:13 PM EDT Rufus D eLuna MD LAB BLOOD BKR ORDERABLES Final R esult [address] [address] * (ABNORMAL) Lipid panel (2025 3:03 PM EDT) [facility] HDL 49 mg/dL [facility] Comment: Interpretation <40 mg/dL: Low HDL cholesterol (major risk factor for CHD) Greater than or equal to 60 mg/dL: High HDL cholesterol ( negative risk factor for CHD) HDL - cholesterol is affected by a number of factors, e.g. smoking, excerise, hormones, sex and age. CHOLESTEROL 91 0 - 240 mg/dL [facility] TRIGLYCERIDES 72 30 - 160 mg/dL [facility] LDL 28(L) 50 - 129 mg/dL [facility] Comment: LDL levels in terms of risk for coronary heart disease: <100 mg/dL: Optimal 100-129 mg/dL: Near or above optimal 130-159 mg/dL: Borderline high 160-189 mg/dL: High >190 mg/dL: Very High CARDIAC RISK RATIO 1.9(L) 3.4 - 5.0 C [facility] Blood 2025 3:03 PM EDT 2025 3:12 PM EDT Rufus De Luna MD LAB BLOOD BKR ORDERABLES Final R esult [address] [address] * Toxicology Screen, Urine (2025 8:22 AM EDT) [facility] Amphetamines, urine - External [facility] Barbiturates, urine - External [facility] [facility] Benzodiazepines , urine - External [facility] THC, urine - External [facility] Cocaine, urine - External [facility] Methamphetamine s, urine - External [facility] Opiates, urine - External [facility] Oxycodone, urine - External [facility] Fentanyl, urine - External [facility] Propoxyphene, urine - External [facility] Buprenorphine, urine - External [facility] Tricyclics, urine - External [facility] Methadone, urine - External [facility] Morphine, urine - External [facility] MDMA, urine - External [facility] PCP, urine - External [facility] Other Findings - External [facility] Urine (Urine) 2025 8:2 2 AM EDT Rufus De Luna MD LAB URINE ORDERABLES Final Resul t Performing Organization Address City/[facility]/ZIP Co de Phone Number [address] [address] from Last 3 Months Insurance MEDICARE PART A & B [employer] SUPPLEMENT MEDICARE PART A & B [employer] SUPP[employer]MENT MEDICARE PART A & B [employer] SUPPLEMENT MEDICARE PART A & B [employer] SUPPLEMENT MEDICARE PART A & B [facility] MEDEX SUPPLEMENT MEDICARE PART A & B [employer] MEDEX SUPPLEMENT MEDICARE PART A & B [employer] SU[employer]MENT MEDICARE PART A & B [employer] SU[employer]MENT MEDICARE PART A & B [employer] SUPPLEMENT Advance Directives For more information, please contact: [phone] (9AM - 5PM [facility] [place], Thursday-Thursday) Documents on File Type Date Recorded Patient Protohistorian Expl anation Healthcare Proxy 12/11/2021 10:23 AM * Full Code (Latest Code Status on File) Date Activated Date Inactivated Comments 01/26/2024 7:48 PM Question Answer Comments Code Status Confirmed With: Patient * Full Code Date Activated Date Inactivated Comments 04/27/2022 5:40 PM 01/26/2024 7:48 PM Question Answer Comments Code Status Confirmed With: Patient * Full Code Date Activated Date Inactivated Comments 02/27/2022 2:58 AM 04/27/2022 5:40 PM Question Answer Comments Code Status Confirmed With: PatientFamily * Full Code Date Activated Date Inactivated Comments 12/04/2021 6:06 PM 02/27/2022 2:58 AM Question Answer Comments Code Status Confirmed With: Other (specify below ) Code Discussion Comments: presumed Healthcare Agents on File Name Relationship Healthcare Agent Relationship Communication Katie Meier Spouse .Primary Health Care Agent (Proxy form on file) [email or web address] Sandra Camarillo Daughter Alternate Health care Agent (Proxy form on file) Care Teams District Adviser Relationship Specialty Start Date End Date Rufus De Luna MD [address] [place] [address] [email or web address] PCP - General Internal Medicine 12/04/21 Rufus De Luna MD [address] [place] [address] [email or web address] Insurance Assigned Provider 06/13/23 Additional Source Comments The information contained in this document represents components of the legal health record. It is not the complete legal health record.[facility]
--- OUTSIDE RECORDS SUMMARY | 2025-02-10 20:07 | XMS_ITS | Encounter Summary ---
Author Organization [facility] Address [address] [place] [address] Phone Care Team Providers Care Tractor Operator Laser Leveling Name Role Phone Rufus De Luna MD Primary Care Provider [phone] Rufus De Luna MD Unavailable Encounter Details Date Type Department Care Team (Late st Contact Info) Description 11/03/2024 Telephone [facility] Internal Medicine [address] [place], [place] [phone] Rufus De Luna MD [address] [place] [address] [email or web address] Social History Tobacco Use Types Packs/Day Years Used Date Smoking Tobacco: Never Smokeless Tobacco: Never Alcohol Use Standard Drinks/Week Comments Not Currently 0 (1 standard drink = 0.6 oz pur e alcohol) Home Health Assessment: Transportation Answer Date Recorded Lack of Transportation (Medical) Yes 05/10/2024 Lack of Transportation (Non-Medical) Yes 05/10/2024 Patient Unable or Declines to Respond No 05/10/2024 Child or Family Care Answer Date Record [...] as food, clothing, or medical care? No 01/26/2024 In the past 12 months have y ou been in a relationship with a person who hurts, threatens, or tries to control you? No 01/26/2024 Are you denied basic needs s uch as food, clothing, or medical care? No 01/26/2024 In the past 12 months have y ou been in a relationship with a person who hurts, threatens, or tries to control you? No 01/26/2024 Sex and Gender Information Value Date Recorded Sex Assigned at Male 12/04/2021 3:50 PM EDT Legal Sex Male 7:35 PM EST Gender Identity Male 12/04/2021 3:50 PM EDT Sexual Orientation Straight 12/04/2021 3: 50 PM EDT documented as of this encounter Plan of Treatment Upcoming Encounters Date Type Department Care Team (Late st Contact Info) Description 02/13/2025 2:30 AM EST Appointment [facility] [address] [place] [phone] Nilam Mann RN [address] [place] [address] [email or web address] 02/16/2025 12:30 AM EST Appointment [facility] [address] [place] [phone] Nilam Mann RN [address] [place] [address] [email or web address] 02/20/2025 3:00 AM EST Appointment [facility] [address] [place] [phone] Nilam Mann RN [address] [place] [address] [email or web address] 02/23/2025 1:00 AM EST Appointment [facility] [address] [place] [phone] Nilam Mann RN [address] [place] [address] [email or web address] 02/27/2025 2:30 AM EST Appointment [facility] [address] [place] [phone] Nilam Mann RN [address] [place] [address] [email or web address] 03/02/2025 12:30 AM EST Appointment [facility] [address] [place] [address] AndNilam Ghotra RN [address] [place] [address] 03/06/2025 1:00 AM EST Appointment [facility] [address] [place] [address] AndNilam Ghotra RN [address] [place] [address] 03/09/2025 Appointment [facility] [address] [place] [phone] AndNilam Ghotra RN [address] [place] [address] 07/10/2025 1:30 PM EDT Office Visit [facility] Internal Medicine [address] [place] [address] Rufus De Luna MD [address] [place] [phone] documented as of this encounter Visit Diagnoses Not on filedocumented in this encounter Additional Health Concerns Assessment Noted Time PHQ-9 Depression Total Score: 14 022 1:54 PM EST PHQ-2 Depression Total Score: 1 12/18/19 24 4:22 PM EDT documented as of this encounter Care Teams Tractor Operator Laser Leveling Relationship Specialty Start Date End Date Rufus De Luna MD [address] [place] [address] PCP - General Internal Medicine 12/04/21 Rufus De Luna MD [address] [place] [address] [email or web address] Insurance Assigned Provider 06/13/23 documented as of this encounter Additional Source Comments The information contained in this document represents components of the legal health record. It is not the complete legal health record.[facility]
--- OUTSIDE RECORDS SUMMARY | 2025-02-10 20:07 | XMS_ITS | Encounter Summary ---
Author Organization [facility] Address [address] [place] [address] Phone Care Team Providers Care Nurse Prn Name Role Phone Rufus De Luna MD Primary Care Provider Rufus De Luna MD Unavailable Encounter Details Date Type Department Care Team (Late st Contact Info) Description 11/03/2024 Telephone [facility] Internal Medicine [address] [place], [place] [phone] Rufus De Luna MD [address] [place] [address] [email or web address] Social History Tobacco Use Types Packs/Day Years [...] with others, in a hotel, in a fpc, living outside on the street, on a [...] Description 02/13/2025 2:30 AM EST Appointment [facility] [address] [place] [phone] Nilam Mann RN [address] [place] [address] [email or web address] 02/16/2025 12:30 AM EST Appointment [facility] [address] [place] [phone] Nilam Mann RN [address] [place] [address] [email or web address] 02/20/2025 3:00 AM EST Appointment [facility] [address] [place] [phone] Nilam Mann RN [address] [place] [address] [email or web address] 02/23/2025 1:00 AM EST Appointment [facility] [address] [place] [phone] Nilam Mann RN [address] [place] [address] [email or web address] 02/27/2025 2:30 AM EST Appointment [facility] [address] [place] [phone] Nilam Mann RN [address] [place] [address] [email or web address] 03/02/2025 12:30 AM EST Appointment [facility] [address] [place] [address] AndNilam Ghotra RN [address] [place] [address] 03/06/2025 1:00 AM EST Appointment [facility] [address] [place] [address] AndNilam Ghotra RN [address] [place] [address] 03/09/2025 Appointment [facility] [address] [place] [address] AndNilam Ghotra RN [address] [place] [address] 07/10/2025 1:30 PM EDT Office Visit [facility] Internal Medicine [address] [place] [address] Rufus De Luna MD [address] [place] [phone] documented as of this encounter Visit Diagnoses Not on filedocumented in this encounter Additional Health Concerns Assessment Noted Time PHQ-9 Depression Total Score: 14 022 1:54 PM EST PHQ-2 Depression Total Score: 1 12/18/19 24 4:22 PM EDT documented as of this encounter Care Teams Nurse Prn Relationship Specialty Start Date End Date Rufus De Luna MD [address] [place] [address] PCP - General Internal Medicine 12/04/21 Rufus De Luna MD [address] [place] [address] [email or web address] Insurance Assigned Provider 06/13/23 documented as of this encounter Additional Source Comments The information contained in this document represents components of the legal health record. It is not the complete legal health record.[facility]
--- OUTSIDE RECORDS SUMMARY | 2025-02-10 20:07 | XMS_ITS ---
Author Organization [facility] Care Team Providers Care Forging Engineer Name Role Phone Darlene Garcia Unavailable Unavailable Mars Soto Unavailable Unavailable Dav Lainez Unavailable Unavailable Diane Mcclelland Unavailable Unavailable Allergies and adverse reactions No Known Allergies Care Team Name Role Address Phone Organization Dates Dav Lainez PCP [address] [facility] [address], [place], [address], [place] (Office): : [facility] 04/01/2023 - 05/12/2023 Darlene Garcia [address] [facility] [address], [place], [address], [place] [facility] 04/01/2023 - 05/12/2023 Mars Soto [address] [place] [address], [facility], [place] (Office): [facility] 04/01/2023 - 05/12/2023 Diane Krystin [address] [facility] [address], [place], [address], [place] (Office): [facility] 04/01/2023 - 05/12/2023 Goals Section Goals Description Status Target Date I will be at reduced risk fo r adverse drug reactions through the review date. Active 08/19/2023 I will be free from discomfo rt and adverse effects of pain medication through the review date. Active 08/19/2023 I will be free of fall relat ed injury through the next review date. Active 08/19/2023 Immunizations Immunization Status Vaccine Details Vaccine Code CodeSystem Date Notes TB 1 Step Mantoux (PPD) completed tuberculin skin test; unspecified formulation lotNumber: [id number] expiry: 02/06/2026 Mfg: [employer] Given 0.1 ml Left Forearm intradermally 98 CVX created date: 04/01/2023 consent date: 04/01/2023 administere d date: 04/01/2023 PCV13 (Pneumococcal Conjugate)Vaccine aborted pneumococcal conjugate vaccine, 13 valent 133 CVX created date: 06/24/2022 consent date: 06/24/2022 Influenza Vaccine aborted Influenza, high-dose, split virus, trivalent, injectable, preservative free 135 CVX created date: 06/24/2022 consent date: 06/24/2022 SARS-COV-2 (COVID-19) completed SARS-COV-2 (COVID-19) vaccine, mRNA, spike protein, LNP, preservative free, 30 mcg/0.3mL dose Mfg: pfizer Step 2 of Multi-step with next step required 208 CVX created date: 06/24/2022 administere d date: 07/11/2020 SARS-COV-2 (COVID-19) completed SARS-COV-2 (COVID-19) vaccine, mRNA, spike protein, LNP, preservative free, 30 mcg/0.3mL dose Mfg: pfizer Step 1 of Multi-step with next step required 208 CVX created date: 06/24/2022 administere d date: 06/19/2020 Pfizer Covid-19 Booster (SARS-COV-2) vaccine completed SARS-COV-2 (COVID-19) vaccine, mRNA, spike protein, LNP, preservative free, 30 mcg/0.3mL dose 208 CVX created date: 06/24/2022 administere d date: 06/25/2021 Pfizer-BioNtech Covid-19 Bi-valent Solution completed SARS-COV-2 (COVID-19) vaccine, mRNA, spike protein, LNP, bivalent, preservative free, 30 mcg/0.3 mL dose, hi-sucrose formulation 300 CVX created date: 06/24/2022 administere d date: 02/13/2022 (COVID-19) Updated Pfizer Vaccine completed SARS-COV-2 (COVID-19) vaccine, mRNA, spike protein, LNP, preservative free, hi-sucrose, 30 mcg/0.3 mL dose lotNumber: [id number] expiry: 03/09/2024 Mfg: cominarty Given 0.3 ml Left Deltoid intramuscularly 309 CVX created date: 04/24/2023 consent date: 04/23/2023 administere d date: 04/23/2023 Mental Status Section Date Assessment Total Score Description 05/12/2023 BIMS 15 cognitively int act CAM 0 No delirium ind icated PHQ-9 00 04/20/2023 CAM 0 No delirium ind icated Insurance Providers Coverage Status Coverage Type Relationship to Subscriber Member Identifier Subscriber Identifier Group Identifier Payer Identifier and Other information 2023 Code: 1 Code System OID:[id number] [id number]. 3.221.5 Code System Name: Source of Payment Typology (PHDSC) Display: Medicare Translation : Code: [place] Code System: OID:2.16.84 [id number]. [id number] Code System Name: Insurance Type Code ([id number]) Display Name: Medicare Part A Code: SELF Code System Name: HL7 RoleCode Code System OID:[id number] .[id number] Display Name: Self Root: [id number] Address: Plan of Treatment Section Interventions Intervention Code Code System Display Name Proposed D ate Problems Problem # Description Date of onset Resolved Date Code CodeSystem Concern Status 1 BODY MASS INDEX [BMI] 45.0-49.9, ADULT 03/31/[address] active 2 PNEUMONIA, UNSPECIFIED ORGANISM 03/31/[address] active 3 POST COVID-19 CONDITION, UNSPECIFIED 03/31/2023 U09.9 ICD-10-CM active 4 CHRONIC OBSTRUCTIVE PULMONARY DISEASE, UNSPECIFIED 06/23/[address] active 5 ENCOUNTER FOR OBSERVATION FOR SUSPECTED EXPOSURE TO OTHER BIOLOGICAL AGENTS RULED OUT 06/23/[address] active 6 ESSENTIAL (PRIMARY) HYPERTENSION 06/23/[address] active 7 GASTRO-ESOPHAGEAL REFLUX DISEASE WITHOUT ESOPHAGITIS 06/23/[address] active 8 MORBID (SEVERE) OBESITY DUE TO EXCESS CALORIES 06/23/[address] active 9 MUSCLE WASTING AND ATROPHY, NOT ELSEWHERE CLASSIFIED, LEFT LOWER LEG 06/23/[address] active 10 MUSCLE WASTING AND ATROPHY, NOT ELSEWHERE CLASSIFIED, RIGHT LOWER LEG 06/23/[address] active 11 SPINAL STENOSIS, LUMBAR REGION WITHOUT NEUROGENIC CLAUDICATION 06/23/[address] active 12 TYPE 2 DIABETES MELLITUS WITH HYPERGLYCEMIA 06/23/[address] active 13 UNSPECIFIED ABNORMALITIES OF GAIT AND MOBILITY 06/23/[address] active 14 UNSPECIFIED ATRIAL FIBRILLATION 06/23/[address] active 15 UNSPECIFIED PROTEIN-CALORIE MALNUTRITION 06/23/[address] active 16 URINARY TRACT INFECTION, SITE NOT SPECIFIED 06/23/2022 03/31/[address] completed Reason for Referral No Reasons for Referral Entered Social History Social History Observation Description Start Date End Date Code Code System Current Smoking Status Tobacco smoking consumption unknown 236295345 SNOMED CT Sex Assigned At Male 1945 25170-4 [facility] Gender Identity Sexual Orientation Vital Signs Code Code System Vitals Name Values and Units Timing Information 97061-9 LOINC Pain Level Value=2.0 05/12/2023 2339-0 LOINC Blood Sugar Uusjv=778.0 Units=mg/dL 05/12/2023 9279-1 [facility] Respiratory Rate Value=18.0 Units=/m in 05/10/2023 8462-4 LOINC Blood Pressure-Diastolic Value=68 Un its=mmHg 05/10/2023 8480-6 LOINC Blood Pressure-Systolic Tzjse=924 Un its=mmHg 05/10/2023 8310-5 [facility] Body Temperature Value=98.4 Units= F 05/10/2023 8867-4 [facility] Heart rate Value=68.0 Units=/min 05/2023 01559-5 [facility] O2 % BldC Oximetry Value=98.0 Units= % 05/10/2023 12613-7 [facility] Weight Obglz=711.2 Units=Lbs 05/2023 8302-2 [facility] Height Value=68.4 Units=Inches 06/24/2022
--- OUTSIDE RECORDS SUMMARY | 2025-02-10 20:08 | XMS_ITS | Encounter Summary ---
Author Organization [facility] Address [address] [place] [address] Phone Care Team Providers Care Cutter In Name Role Phone Rufus De Luna MD Primary Care Provider [phone] Rufus De Luna MD Unavailable Encounter Details Date Type Department Care Team (Late st Contact Info) Description 12/04/2021 Procedure Pass [facility], Ct Scan - [address] [address] Social History Tobacco Use Types Packs/Day Years [...] 3:56 PM EDT Farzaneh Salomon RN * [place] Suicide Severity Rating Scale (Screener/Recent Self-Report) Question Answer Date of Assessment Author 1. Wish to be (Past 1 Month) No 12/04/2021 3:56 PM EDT Farzaneh Salomon RN 2. Non-Specific Active Suicidal Thoughts (Past 1 Month) No 12/04/2021 3:56 PM EDT Farzaneh Salomon, A[place]LAIDE 6. Suicidal Behavior (Lifetime) No 12/04/2021 3:56 PM EDT Farzaneh Salomon, ADELAIDE documented as of this encounter Plan of Treatment Upcoming Encounters Date Type Department Care Team (Late st Contact Info) Description 02/13/2025 2:30 AM EST Appointment [facility] [address] [place] [phone] Nilam Mann RN [address] [place] [address] 02/16/2025 12:30 AM EST Appointment [facility] [address] [place] [phone] Nilam Mann RN [address] [place] [address] 02/20/2025 3:00 AM EST Appointment [facility] [address] [place] [phone] AndNilam Ghotra RN [address] [place] [address] 02/23/2025 1:00 AM EST Appointment [facility] [address] [place] [phone] Nilam Mann RN [address] [place] [address] 02/27/2025 2:30 AM EST Appointment [facility] [address] [place] [phone] Nilam Mann RN [address] [place] [address] 03/02/2025 12:30 AM EST Appointment [facility] [address] [place] [address] Nilam Mann RN [address] [place] [address] 03/06/2025 1:00 AM EST Appointment [facility] [address] [place] [address] Nilam Mann RN [address] [place] [address] 03/09/2025 Appointment [facility] [address] [place] [phone] AndNilam Ghotra RN [address] [place] [address] 07/10/2025 1:30 PM EDT Office Visit [facility] [address] [place] [address] Rufus De Luna MD [address] [place] [address] [email or web address] documented as of this encounter Visit Diagnoses [...] documented as of this encounter Care Teams Cutter In Relationship Specialty Start Date End Date Rufus De Luna MD [address] [place] [address] [email or web address] PCP - General Internal Medicine 12/04/21 Rufus De Luna MD [address] [place] [address] [email or web address] Insurance Assigned Provider 06/13/23 documented as of this encounter Additional Source Comments The information contained in this document represents components of the legal health record. It is not the complete legal health record.[facility]
--- OUTSIDE RECORDS SUMMARY | 2025-02-10 20:08 | XMS_ITS | Encounter Summary ---
Author Organization [facility] Address [address] [facility] [address] [place] [address] Phone Care Team Providers Care Food Science Technician Name Role Phone Rufus De Luna MD Primary Care Provider [phone] Rufus De Luna MD Unavailable Encounter Details Date Type Department Care Team (Late st Contact Info) Description 12/11/2021 Procedure Pass [place] Admitting Dept - Virtual Department [address] [place] [address] Social History Tobacco Use Types Packs/Day Years [...] Appointment [facility] [address] [place] [address] Nilam Mann RN [address] [place], [place] [phone] 02/16/2025 12:30 AM EST Appointment [facility] [address] [place] [address] AndNilam Ghotra, RN [address] [place] [address] 02/20/2025 3:00 AM EST Appointment [facility] [address] [place] [address] AndNilam Ghotra, RN [address] [place] [address] 02/23/2025 1:00 AM EST Appointment [facility] [address] [place] [address] AndNilam Ghotra, RN [address] [place] [address] 02/27/2025 2:30 AM EST Appointment [facility] [address] [place] [address] AndNilam Ghotra, RN [address] [place] [address] 03/02/2025 12:30 AM EST Appointment [facility] [address] [place] [address] AndNilam Ghotra, RN [address] [place] [address] 03/06/2025 1:00 AM EST Appointment [facility] [address] [place] [address] AndNilam Ghotra, RN [address] [place] [address] 03/09/2025 Appointment [facility] [address] [place] [address] Nilam Mann, [place]LAIDE [address] [place] [address] 07/10/2025 1:30 PM EDT Office Visit [facility] Internal Medicine [address] [place], [place] [phone] Rufus De Luna MD [address] [place], [place] [phone] documented as of this encounter Visit Diagnoses Not on filedocumented in this encounter Additional Health Concerns Infection Onset Date Last Indicated Resolved Time CoV-Risk 02/26/2022 02/26/2022 02/27/2022 9:14 AM EST Influenza 02/26/2022 02/26/2022 03/05/2022 1:22 AM EST CoV-Risk Comment:Per note documentation 01/26/2024 01/26/2024 10:04 AM EST documented as of this encounter Care Teams Food Science Technician Relationship Specialty Start Date End Date Rufus De Luna MD [address] [place], [place] [phone] PCP - General Internal Medicine 12/04/21 Rufus De Luna MD [address] [place], [place] [phone] Insurance Assigned Provider 06/13/23 documented as of this encounter Additional Source Comments The information contained in this document represents components of the legal health record. It is not the complete legal health record.[facility]
--- OUTSIDE RECORDS SUMMARY | 2025-02-10 20:08 | XMS_ITS | Encounter Summary ---
Author Organization [facility] Address [address] [facility] [address] [place] [address] Phone Care Team Providers Care Aircraft Ordnance Systems Mechanic Name Role Phone Rufus De Luna MD Primary Care Provider [phone] Rufus De Luna MD Unavailable Encounter Details Date Type Department Care Team (Late st Contact Info) Description 12/09/2021 Procedure Pass [facility] Endoscopy Admitting Dept Virtual Department [address] [place] [address] Social History Tobacco Use Types Packs/Day Years [...] Appointment [facility] [address] [place] [address] Nilam Mann RN [address] [place], [place] [phone] 02/16/2025 12:30 AM EST Appointment [facility] [address] [place] [address] AndNilam Ghotra, RN [address] [place] [address] 02/20/2025 3:00 AM EST Appointment [facility] [address] [place] [address] AndNilam Ghotra, RN [address] [place] [address] 02/23/2025 1:00 AM EST Appointment [facility] [address] [place] [address] AndNilam Ghotra, RN [address] [place] [address] 02/27/2025 2:30 AM EST Appointment [facility] [address] [place] [address] AndNilam Ghotra, RN [address] [place] [address] 03/02/2025 12:30 AM EST Appointment [facility] [address] [place] [address] AndNilam Ghotra, RN [address] [place] [address] 03/06/2025 1:00 AM EST Appointment [facility] [address] [place] [address] AndNilam Ghotra, RN [address] [place] [address] 03/09/2025 Appointment [facility] [address] [place] [address] Nilam Mann, ADELAIDE [address] [place] [address] 07/10/2025 1:30 PM EDT Office Visit [facility] Internal Medicine [address] [place], [place] [phone] Rufus De Luna MD [address] [place], [place] [phone] documented as of this encounter Visit Diagnoses Not on filedocumented in this encounter Additional Health Concerns Infection Onset Date Last Indicated Resolved Time CoV-Risk 02/26/2022 02/26/2022 02/27/2022 9:14 AM EST Influenza 02/26/2022 02/26/2022 03/05/2022 1:22 AM EST CoV-Risk Comment:Per note documentation 01/26/2024 01/26/2024 10:04 AM EST documented as of this encounter Care Teams Aircraft Ordnance Systems Mechanic Relationship Specialty Start Date End Date Rufus De Luna MD [address] [place], [place] [phone] PCP - General Internal Medicine 12/04/21 Rufus De Luna MD [address] [place], [place] [phone] Insurance Assigned Provider 06/13/23 documented as of this encounter Additional Source Comments The information contained in this document represents components of the legal health record. It is not the complete legal health record.[facility]
--- OUTSIDE RECORDS SUMMARY | 2025-02-10 20:08 | XMS_ITS | Encounter Summary ---
Author Organization [facility] Address [address] [place] [address] Phone Care Team Providers Care Pasteurizer Name Role Phone Rufus De Luna MD Primary Care Provider [phone] Rufus De Luna MD Unavailable Encounter Details Date Type Department Care Team (Late st Contact Info) Description 02/09/2025 Telephone [facility] [address] [place] [address] Rach [place], [place] [address] [place] [address] [email or web address] Social History Tobacco Use Types Packs/Day Years [...] with others, in a hotel, in a custodial, living outside on the street, on a [...] PM EDT documented as of this encounter Progress Notes * Rach Lomax [place] - 02/09/2025 10:21 AM EST EPA initiated for tirzepatide (MOUNJARO) 2.5 mg/0.5 mL PnIj subcutaneous pen documented in this encounter Plan of Treatment Upcoming Encounters Date Type Department Care Team (Late st Contact Info) Description 02/13/2025 2:30 AM EST Appointment [facility] [address] [place] [phone] Nilam Mann RN [address] [place] [address] [email or web address] 02/16/2025 12:30 AM EST Appointment [facility] [address] [place] [phone] Nilam Mann RN [address] [place] [address] [email or web address] 02/20/2025 3:00 AM EST Appointment [facility] [address] [place] [phone] Nilam Mann RN [address] [place] [address] [email or web address] 02/23/2025 1:00 AM EST Appointment [facility] [address] [place] [phone] Nilam Mann RN [address] [place] [address] [email or web address] 02/27/2025 2:30 AM EST Appointment [facility] [address] [place] [phone] AndNilam Ghotra RN [address] [place] [address] 03/02/2025 12:30 AM EST Appointment [facility] [address] [place] [address] AndNilam Ghotra RN [address] [place] [address] 03/06/2025 1:00 AM EST Appointment [facility] [address] [place] [address] AndNilam Ghotra RN [address] [place] [address] 03/09/2025 Appointment [facility] [address] [place] [address] AndNilam Ghotra RN [address] [place] [address] 07/10/2025 1:30 PM EDT Office Visit [facility] [address] [place] [phone] Rufus De Luna MD [address] [place] [address] [email or web address] documented as of this encounter Visit Diagnoses Not on filedocumented in this encounter Additional Health Concerns Assessment Noted Time PHQ-9 Depression Total Score: 21 025 2:51 PM EDT PHQ-2 Depression Total Score: 6 01/03/20 25 2:51 PM EDT documented as of this encounter Care Teams Pasteurizer Relationship Specialty Start Date End Date Rufus De Luna MD [address] [place] [address] [email or web address] PCP - General Internal Medicine 12/04/21 Rufus De Luna MD [address] [place] [address] [email or web address] Insurance Assigned Provider 06/13/23 documented as of this encounter Additional Source Comments The information contained in this document represents components of the legal health record. It is not the complete legal health record.[facility]
--- OUTSIDE RECORDS SUMMARY | 2025-02-10 20:08 | XMS_ITS | Encounter Summary ---
Author Organization [facility] Address [address] [place] [address] Phone Care Team Providers Care Binder Caser Name Role Phone Rufus De Luna MD Primary Care Provider [phone] Rufus De Luna MD Unavailable Reason for Visit * Reason Comments Med Change Request Encounter Details Date Type Department Care Team (Late st Contact Info) Description 01/23/2025 Refill [facility] [address] [place] [address] Rufus De Luna MD [address] [place] [address] [email or web address] Med Change Request Social History Tobacco Use Types Packs/Day Years [...] with others, in a hotel, in a detention, living outside on the street, on a [...] as of this encounter Progress Notes * Liana Martinez [place] - 01/23/2025 3:34 PM EST Spoke with Alysia at the pharmacy who stated that these medications are going through workers comp 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 do this PA documented in this encounter Plan of Treatment Upcoming Encounters Date Type Department Care Team (Late st Contact Info) Description 02/13/2025 2:30 AM EST Appointment [facility] [address] [place] [phone] Nilam Mann RN [address] [place] [address] 02/16/2025 12:30 AM EST Appointment [facility] [address] [place], [place] [phone] Nilam Mann RN [address] [place] [address] 02/20/2025 3:00 AM EST Appointment [facility] [address] [place] [address] Nilam Mann RN [address] [place] [address] 02/23/2025 1:00 AM EST Appointment [facility] [address] [place] [address] Nilam Mann RN [address] [place] [address] 02/27/2025 2:30 AM EST [facility]ment [facility] [address] [place] [address] AndNilam Ghotra RN [address] [place] [address] 03/02/2025 12:30 AM EST App[facility]ment [facility] [address] [place] [address] AndNilam Ghotra RN [address] [place] [address] 03/06/2025 1:00 AM EST Appointment [facility] [address] [place] [address] AndNilam Ghotra RN [address] [place] [address] 03/09/2025 Appointment [facility] [address] [place] [address] AndNilam Ghotra RN [address] [place] [address] 07/10/2025 1:30 PM EDT Office Visit [facility] [address] [place] [address] Rufus De Luna MD [address] [place] [address] [email or web address] documented as of this encounter Visit Diagnoses Diagnosis Primary hypertension Unspecified essential hypertension Dyslipidemia Other and unspecified hyperlipidemia documented in this encounter Additional Health Concerns Assessment Noted Time PHQ-9 Depression Total Score: 21 025 2:51 PM EDT PHQ-2 Depression Total Score: 6 01/03/20 25 2:51 PM EDT documented as of this encounter Care Teams Binder Caser Relationship Specialty Start Date End Date Rufus De Luna MD [address] [place] [address] [email or web address] PCP - General Internal Medicine 12/04/21 Rufus De Luna MD [address] [place] [address] [email or web address] Insurance Assigned Provider 06/13/23 documented as of this encounter Additional Source Comments The information contained in this document represents components of the legal health record. It is not the complete legal health record.[facility]
--- NOTE | 2025-02-10 20:14 | PC.NURSE ---
cooling blanket placed on pt at this time per md verbal order
--- NOTE | 2025-02-10 20:18 | PC.NURSE ---
pt leg wraps removed at this time, pt reports leg wounds are chronic and they get dressed by home care nurse. pt noted to have swelling groin. aware and pictures sent via [employer]
[2025-02-10] MEDS: Lactated Ringers 500 ML IVCONT (20:30)
[2025-02-10 20:37] LABS: Reflex Lactate? Lactic Acid Added
[2025-02-10] MEDS: vancomycin/NS 2,000 MG/500 ML PLAST..BAG 250 MG IV (20:53)
[2025-02-10 21:11] LABS: ~Lactic Acid-LAB USE ONLY 2.4 mmol/L (0.5-2.0)
[2025-02-10] MEDS: iohexoL 350 MG/ML 100 ML INFUS..BTL IV (21:19)
[2025-02-10 21:55] LABS: Lipase 5 U/L (8-78)
[2025-02-10 22:48] LABS: Reflex Lactate? 2 Y
[2025-02-10 23:27] LABS: ~Lactic Acid-LAB USE ONLY 2.3 mmol/L (0.5-2.0)
[2025-02-11] VITALS (12 sets, daily range): BP systolic 106–146; BP diastolic 41–82; PULSE 64–117; RESP 16–22; TEMP 36.3–37.9; O2SAT 91–99; BMI 49.9
--- NOTE | 2025-02-11 00:33 | PM.IMHP ---
History of Present Illness Date of Service: 02/11/25 Chief Complaint: ams 80-year-old male with a past medical history of history, HLD, CHF, AFib on Eliquis, neuropathy, diabetes, COPD, history of cauda equina compression, obesity, spinal stenosis, mostly wheelchair-bound; presented to the hospital today with a chief complaint of shortness of breath, lethargy. Patient was doing fine but she suddenly became ill as per the patient's . Has been complaining of shortness of breath. Has had chronic ulcers on his legs. Because of his spinal stenosis is mostly wheelchair-bound but he is able to get up and walk with the help of his walker to the bathroom. For the past 1 day of shortness of breaths Reports patient has urinary frequency but unchanged from prior. Patient does not have chronic Marte. At the time of my interview patient is more alert but sleepy. Denies any pain. Review of all other systems is negative except mentioned above ER course: Per ER team, patient initially complained of shortness of breaths; has coarse breath sounds; concern for possible mild CHF exacerbation. Placed on supplemental oxygen. Patient blood pressure was stable. Patient also qualified for sepsis criteria. Febrile and has leukocytosis. Also noted lactic acidosis. Patient noted to have significant cellulitis of his abdominal wall fold extending into the groin and perineum. Less concern for for nurse PACS. CT abdomen pelvis was done which showed abdominal fold skin thickening. No gas. Given IV vancomycin and Zosyn. Marte catheter placed in the ER [facility] Medical History Persistent atrial fibrillation Acute CHF Sepsis Abdominal pain COPD (chronic obstructive pulmonary disease) Acute hypoxemic respiratory failure Bacteremia Paroxysmal A-fib Cauda equina compression CHF (congestive heart failure) Social History Household Members: Spouse Housing: Apartment Do you presently have visiting nurse or other home services: Yes Alcohol intake: never Patient Tobacco Use Status: Never used Tobacco Advance Directives: Yes Advance Directives on File: Yes Advance Directives Date on File: 04/21/23 Nutrition Risks: No Nutritional Risk service: No Meds Allergies Allergy/AdvReac Type Severity Reaction Status Date / Time No Known Allergies Allergy Verified 02/10/25 18:13 Active Medications: Current Medications Acetaminophen (Acetaminophen 325 Mg Tablet) 650 mg PO Q6H PRN PRN Reason: Pain, Mild 1-3,fever,headache Albuterol/Ipratropium (Albuterol/Iprat 2.5/0.5mg 3 Ml Ampul.Neb) 3 ml INHALE Q4H PRN PRN Reason: Shortness of Breath/Wheezing Benzonatate (Benzonatate 100 Mg Capsule) 100 mg PO TID PRN PRN Reason: Cough Calcium Carbonate (Calcium Carbonate 750 Mg Tab.Chew) 750 mg PO Q4H PRN PRN Reason: Heartburn Enoxaparin Sodium (Enoxaparin Sodium 40 Mg/0.4 Ml Syringe) 40 mg SUBCUT Q24H JOSEFA Lactated Ringer's (Lr) 1,000 mls @ 100 mls/hr IVCONT .Q10H JOSEFA Magnesium Hydroxide (Milk Of Magnesia 30 Ml Oral.Susp) 30 ml PO DAILY PRN PRN Reason: Constipation Melatonin (Melatonin 3 Mg Tablet) 6 mg PO BEDTIME PRN PRN Reason: Insomnia Pharmacy Consult (Consult Rx Vancomycin Dosing) 1 each MISCELLANE DAILY PRN PRN Reason: Consult order Sodium Chloride (0.9 % Sodium Chloride Flush 3 Ml Syringe) 3 ml IVFLUSH QSHIFT [facility] Home Medications ?Medication ?Instructions ?Recorded ?Confirmed ?Last Taken ?Type apixaban 5 mg tablet (Eliquis) 5 mg PO BID 03/26/23 04/01/24 03/31/24 History atorvastatin 80 mg tablet 80 mg PO BEDTIME 03/26/23 04/01/24 03/31/24 History cholecalciferol (vitamin D3) 25 25 mcg PO DAILY 03/26/23 04/01/24 03/31/24 History mcg (1,000 unit) tablet citalopram 20 mg tablet 20 mg PO DAILY 03/26/23 04/01/24 03/31/24 History docusate sodium 50 mg capsule 50 mg PO Q6H PRN WITH OXYCODONE 03/26/23 04/01/24 03/04/24 History eplerenone 50 mg tablet 50 mg PO DAILY 03/26/23 04/01/24 03/31/24 History fluticasone fur. 100 mcg-umeclid 1 ea inhalation DAILY 03/26/23 04/01/24 03/31/24 History 62.5 mcg-vilant 25 mcg inhalat.powder (Trelegy Ellipta) gabapentin 600 mg tablet 600 mg PO BID 03/26/23 04/01/24 03/31/24 History insulin regular hum U-500 conc 500 40 unit subcut DAILY@1730 03/26/23 04/01/24 03/31/24 History unit/mL(3 mL) subcut pen (Humulin R U-500 (Conc) Insulin Kwikpen) losartan 50 mg tablet 50 mg PO DAILY 03/26/23 04/01/24 03/31/24 History nystatin 100,000 unit/gram topical 1 appl topical BID PRN abdominal 03/26/23 04/01/24 03/26/23 History powder rash omeprazole 20 mg capsule,delayed 20 mg PO DAILY@0630 03/26/23 04/01/24 03/31/24 History release oxycodone 10 mg tablet 10 mg PO Q6H PRN Moderate Pain 03/26/23 04/01/24 11/07/23 History (Scale Score 5-6) albuterol sulfate 90 mcg/actuation 2 inh inhalation Q6H PRN Shortness 11/08/23 04/01/24 Unknown History breath activated powder inhaler Of Breath Or Wheezing hydroxyzine pamoate 25 mg capsule 25 mg PO TID PRN itch 11/08/23 04/01/24 Unknown History insulin regular hum U-500 conc 500 40 unit subcut DAILY@0900 11/08/23 04/01/24 03/31/24 History unit/mL(3 mL) subcut pen (Humulin R U-500 (Conc) Insulin Kwikpen) polyethylene glycol 3350 17 17 g PO DAILY PRN Constipation 11/08/23 04/01/24 03/04/24 History gram/dose oral powder (Miralax) tamsulosin 0.4 mg capsule 0.4 mg PO BEDTIME 11/08/23 04/01/24 03/31/24 History triamcinolone acetonide 0.1 % 1 appl topical BID 03/05/24 04/01/24 03/31/24 History topical cream Physical Exam Vital Signs and Narrative: Vital Signs: Last Vital Signs Temp 99.9 F 02/10/25 23:56 Pulse 118 H 02/10/25 23:56 Resp 18 02/10/25 23:56 BP 154/91 H 02/10/25 23:56 Pulse Ox 99 02/10/25 23:56 O2 Del Method Nasal Cannula 02/10/25 23:56 O2 Flow Rate 2 02/10/25 23:56 FiO2 50 02/10/25 18:48 BMI result Body Mass Index 48.9 Gen: Appears be in no acute distress HEENT: NCAT, Moist mucosa. Pulmonary: Coarse breath sounds CVS: Normal S1-S2 Abdomen: BS+, Soft, Nontender Extremities: Warm well perfused; noted chronic skin changes on bilateral legs Neuro: Alert and awake. Integumentary: Has extensive abdominal wall pannus and abdominal wall for erythema and redness; mildly tender; extending into the groin. Results Labs 02/11/25 04:56 02/11/25 04:56 Labs: Laboratory Results - last 24 hr 02/10/25 02/10/25 02/10/25 18:17 18:29 18:30 MCV 88.1 MCH 27.6 MCHC 31.4 RDW 15.5 Plt Count 222 MPV 11.6 Immature Gran % (Auto) 0.7 H Neut % (Auto) 85.6 H Lymph % (Auto) 8.5 L [place] % (Auto) 3.6 Eos % (Auto) 1.1 Baso % (Auto) 0.5 Lymph # (Auto) 1.6 [place] # (Auto) 0.7 Eos # (Auto) 0.2 Baso # (Auto) 0.1 Abs Immat Gran (auto) 0.13 H Absolute Neuts (auto) 16.0 H Absolute Nucleated RBC 0.000 Nucleated RBC % (auto) 0.0 VBG pH VBG pCO2 VBG pO2 VBG HCO3 VBG O2 Saturation VBG Base Excess Anion Gap Estim Creat Clear Calc Estimated GFR POC Glucose 177 H Random Glucose Lactic Acid 3.8 H* Lactic Acid F/U @ 2Hr Lactic Acid F/U @ 4Hr Calcium Total Bilirubin AST ALT Alkaline Phosphatase Troponin I High Sens NT-Pro-B Natriuret Pep Total Protein Albumin Lipase Urine Color Urine Appearance Urine pH Ur Specific [place] Urine Protein Urine Glucose (UA) Urine Ketones Urine Blood Urine Nitrite Ur Leukocyte Esterase Urine RBC Urine WBC Ur Squamous Epith Cells Urine Bacteria Hyaline Casts Influenza Type A (PCR) NEGATIVE Influenza Type B (PCR) NEGATIVE RSV RNA Qual (PCR) NEGATIVE SARS-CoV-2 RNA (RT-PCR) NEGATIVE 02/10/25 02/10/25 02/10/25 18:40 19:03 19:14 MCV MCH MCHC RDW Plt Count MPV Immature Gran % (Auto) Neut % (Auto) Lymph % (Auto) [place] % (Auto) Eos % (Auto) Baso % (Auto) Lymph # (Auto) [place] # (Auto) Eos # (Auto) Baso # (Auto) Abs Immat Gran (auto) Absolute Neuts (auto) Absolute Nucleated RBC Nucleated RBC % (auto) VBG pH 7.35 VBG pCO2 37 VBG pO2 67 VBG HCO3 20 L VBG O2 Saturation 90.0 VBG Base Excess -4.1 Anion Gap 13 Estim Creat Clear Calc 77.5 Estimated GFR > 60 POC Glucose Random Glucose 223 H Lactic Acid Lactic Acid F/U @ 2Hr Lactic Acid F/U @ 4Hr Calcium 8.8 Total Bilirubin 1.2 H AST 16 ALT < 6 Alkaline Phosphatase 129 H Troponin I High Sens 49.5 H D NT-Pro-B Natriuret Pep 1749.6 H Total Protein 7.4 Albumin 3.7 Lipase 5 L Urine Color Yellow Urine Appearance Clear Urine pH 5.0 Ur Specific [place] >= 1.030 H Urine Protein 100 (2+) H Urine Glucose (UA) >=1000 H Urine Ketones Negative Urine Blood Small (1+) H Urine Nitrite Negative Ur Leukocyte Esterase Negative Urine RBC 6-10 H Urine WBC 6-10 H Ur Squamous Epith Cells 0-2 Urine Bacteria None Seen Hyaline Casts 0-2 Influenza Type A (PCR) Influenza Type B (PCR) RSV RNA Qual (PCR) SARS-CoV-2 RNA (RT-PCR) 02/10/25 02/10/25 20:44 22:58 MCV MCH MCHC RDW Plt Count MPV Immature Gran % (Auto) Neut % (Auto) Lymph % (Auto) [place] % (Auto) Eos % (Auto) Baso % (Auto) Lymph # (Auto) [place] # (Auto) Eos # (Auto) Baso # (Auto) Abs Immat Gran (auto) Absolute Neuts (auto) Absolute Nucleated RBC Nucleated RBC % (auto) VBG pH VBG pCO2 VBG pO2 VBG HCO3 VBG O2 Saturation VBG Base Excess Anion Gap Estim Creat Clear Calc Estimated GFR POC Glucose Random Glucose Lactic Acid Lactic Acid F/U @ 2Hr 2.4 H* Lactic Acid F/U @ 4Hr 2.3 H* Calcium Total Bilirubin AST ALT Alkaline Phosphatase Troponin I High Sens NT-Pro-B Natriuret Pep Total Protein Albumin Lipase Urine Color Urine Appearance Urine pH Ur Specific [place] Urine Protein Urine Glucose (UA) Urine Ketones Urine Blood Urine Nitrite Ur Leukocyte Esterase Urine RBC Urine WBC Ur Squamous Epith Cells Urine Bacteria Hyaline Casts Influenza Type A (PCR) Influenza Type B (PCR) RSV RNA Qual (PCR) SARS-CoV-2 RNA (RT-PCR) Assessment and Plan (1) Cellulitis: Qualifiers: Site of cellulitis: unspecified site Qualified Code(s): L03.90 - Cellulitis, unspecified Status: Acute Plan 80-year-old male with a past medical history of history, HLD, CHF, AFib on Eliquis, neuropathy, diabetes, COPD, history of cauda equina compression, obesity, spinal stenosis, mostly wheelchair-bound; presented to the hospital today with a chief complaint of shortness of breath, lethargy/altered mental status. Admitted for following Metabolic encephalopathy: Supportive care. Aspiration precautions. Fall precautions. PT/OT when ready for discharge. Sepsis/Abdominal wall cellulitis: Extending into the groin/perineum. CT abdomen pelvis showed no evidence of gas. Less concern for falls. ID consult. Continue vancomycin and Zosyn. UTI: Patient on antibiotics. Follow-up cultures. Diabetes: Insulin sliding scale. Monitor POC glucose and adjust insulins according to home regimen. COPD: Stable. DuoNebs p.r.n. AFib: Rate controlled. Continue home Eliquis Acute on chronic CHF: Chest x-ray showed mild congestion; noted elevated proBNP. Patient was not given Lasix due to sepsis. IV diuresis as needed. Daily weights and I's and os. Lactic acidosis: Patient was given gentle IV fluids in the ER. Improving. Med reconsideration: Resume home medications once med rec completed by pharmacy in a.m. DVT prophylaxis: Patient on Eliquis Code status: DNR/DNI, confirmed with the patient's Quality Stroke Does the patient have a stroke diagnosis?: No VTE Prior VTE?: No VTE Risk Level:: Medical - moderate - high VTE Device Contraindication: Treatment Not Indicated VTE Drug Contraindication: N/A - Med Ordered
[2025-02-11] MEDS: Lactated Ringers 1,000 ML 100 ML IVCONT (01:00)
--- NOTE | 2025-02-11 04:15 | PC.NURSE ---
pt placed in hospital bed for comfort at this time
[2025-02-11 05:07] LABS: Hematocrit 45.5 % (42.0-52.0); Hemoglobin 14.3 g/dl (14.0-18.0); Imm Gran Abs Auto 0.21 X10*3/uL (0.00-0.03); Imm Gran Pct Auto 0.9 % (0.0-0.4); Lymphocytes Absolute Auto 1.2 X10*3/uL (1.2-4.9); MANUAL DIFF FLAG SCAN; Mean Corpuscular HGB Conc 31.4 g/dl (31.0-36.0); Mean Corpuscular Hemoglobin 27.4 pg (27.0-33.0); Mean Corpuscular Volume 87.2 fL (80.0-98.0); NRBC Abs Auto 0.000 X10*3/uL (0.0-0.012); NRBC Pct Auto 0.0 /100WBC (0.0-0.2); Platelet Count 217 X10*3/uL (160-400); Red Blood Count 5.22 X10*6/uL (4.60-5.80); SCAN SMEAR FLAG 1; White Blood Count 23.2 X10*3/uL (4.8-10.8)
[2025-02-11 05:27] LABS: Alanine Aminotransferase < 6 U/L (0-40); Albumin Level 3.4 g/dL (3.5-5.0); Alkaline Phosphatase 111 U/L (39-117); Anion Gap 18 (12-20); Aspartate Amino Transferase 18 U/L (5-37); Blood Urea Nitrogen 15 mg/dL (9-16); Calcium 8.7 mg/dL (8.4-10.2); Carbon Dioxide 21 mmol/L (22-29); Chloride 105 mmol/L (96-108); Creatinine Clr Calc Pharmacy 79.0; Estimated Glomerular Filt Rate > 60; Potassium 4.7 mmol/L (3.3-5.1); Sodium 139 mmol/L (135-145); Total Protein 6.9 g/dL (6.5-8.0)
[2025-02-11 07:16] LABS: Glucose, Whole Blood 183 mg/dL (60-115)
--- NOTE | 2025-02-11 07:18 | PHA.PROG ---
Admission Date/Time: February 11, 2025 00:30 Indication: skin Weight in k.8 kg Serum Creatinine - Last 168 Hours 02/10/25 02/11/25 19:03 04:56 Creatinine 1.05 1.03 Estimated CrCl and GFR - Last 168 Hours 02/10/25 02/11/25 19:03 04:56 Estim Creat Clear Calc 77.5 79.0 Estimated GFR > 60 > 60 Vancomycin Loading Dose: 2000 Current Vancomycin Dosing Regimen: 1000 Q12H Vancomycin Monitoring using AUC goal of 400 - 600 range with trough as surrogate marker: 584 Date and Time for next Vancomycin Level to be drawn: 02/12 @0700 Pharmacist Comments on Vancomycin Plan: Vancomycin dosing will take advantage of [employer] as a clinical decision support tool that uses Bayesian modeling to calculate individual patient's pharmacokinetic parameters and forecast the patient's drug concentration time course with the target goal AUC 24 range of 400 - 600 mg/L/hr.
[2025-02-11] MEDS: 0.9 % Sodium Chloride Flush 3 ML SYRINGE IVFLUSH ×2 (07:32→16:48)
[2025-02-11] MEDS: oxyCODONE HCl Immed Release 5 MG TABLET 10 MG PO (08:12)
--- NOTE | 2025-02-11 08:59 | ECG_ITS ---
Test Reason : chest pain Blood Pressure : */* mmHG Vent. Rate : 89 BPM Atrial Rate : 241 BPM P-R Int : * ms QRS Dur : 92 ms QT Int : 376 ms P-R-T Axes : * 5 -7 degrees QTcB Int : 457 ms Atrial flutter with variable A-V block Low voltage QRS Inferior infarct Cannot rule out Anterior infarct Abnormal ECG When compared with ECG of 10-Feb-2025 18:43, No significant changes seen Referred By: Estefany Cabello Electronically Signed By: ANTWON SAVAGE
--- NOTE | 2025-02-11 09:02 | PC.NURSE ---
Patient awake and alert/oriented, able to make needs known. skin pwd, resp even and labored at 22, speaking in full, clear sentences. denies SOB, maintaining O2 sats on room air. Afib/flutter via tele. medicated w/ prn oxycodone for 6/10 pain to lower abdomen, skin remains red and inflammed. krishnan patent and draining dark yellow urine. temperature has increased from 99.5 to 100.2 via temperature sensing krishnan. medicated w/ tylenol per MAY. patient 2 assist to bedside commode, patient moved his bowels. patient weak and difficult to assist to transfer, patient assisted safely back to bed and made aware that bedpan will be utilized for patient safety. upon resting back on hospital bed patient c/o left sided chest pain, vitals assessed and Estefany KATE made aware, EKG obtained per order. lab called and made aware of vanco trough prior to antibiotic administration. patient aware of plan of care.
[2025-02-11 10:03] LABS: Troponin-I High Sensitivity 60.9 ng/L (<3.5-35.0)
--- NOTE | 2025-02-11 10:40 | P.CONCA_ITS ---
History of Present Illness History of Present Illness Date of Service: 02/11/25 Chief complaint: Cellulitis Narrative: This is a cardiology consultation regarding congestive heart failure. Per last consultation, history of persistent atrial fibrillation on rate control with beta-blockers and congestive heart failure related to atrial fibrillation obesity but thought to be right-sided. Current admissions because of shortness of breath and lethargy. Per documentation, patient suddenly became real and was complaining of shortness of breath. He has got chronic ulcers in his legs. Mostly wheelchair-bound. Subsequently admitted as possible CHF exacerbation and then placed on supplemental oxygen. Also noticed to have fever/leukocytosis and treated as sepsis. Patient is currently not offering any complaints and he states he feels okay. He is denying any chest pain or shortness of breath or palpitations. Review of Systems 2 Review of Systems: Yes all other systems are reviewed and are negative Constitutional: Constitutional: Reports as per HPI and Reports no additional constitutional complaints Eyes: Eyes: Reports as per HPI and Denies no additional eye complaints ENT: Denies system reviewed and no additional complaints, except as documented and Reports as per HPI Cardiovascular: Cardiovascular: Reports as per HPI, Reports no additional cardiovascular complaints, Denies acrocyanosis, Denies cool extremities, Denies chest pain, Denies leg edema, Denies lightheadedness, Denies palpitations and Denies dyspnea Respiratory: Respiratory: Reports as per HPI, Denies no additional respiratory complaints and Denies dyspnea Gastrointestinal: Gastrointestinal: Reports as per HPI and Denies no additional gastrointestinal complaints Genitourinary: Genitourinary: Reports no additional male genitourinary complaints and Reports as per HPI Musculoskeletal: Musculoskeletal: Reports no additional musculoskeletal complaints and Reports as per HPI Integumentary/Breasts: Skin/Breast: Reports system reviewed and no additional complaints, except as docu Neurologic: Reports system reviewed and no additional complaints, except as documented and Reports as per HPI Psychiatric: Psychiatric: Reports no additional psychiatric complaints and Reports as per HPI Endocrine: Endocrine: Reports no additional endocrine complaints, Reports as per HPI and Denies palpitations Hematologic/Lymphatic: Hematologic/Lymphatic: Reports no additional hematologic/lymphatic complaints and Reports as per HPI Allergic/Immunologic: Allergic/Immunologic: Reports no additional allergic/immunologic complaints and Reports as per HPI [facility] Past Medical History Medical History (Updated 02/11/25 @ 10:48 by Vic Menon MD) Persistent atrial fibrillation Acute CHF Sepsis Abdominal pain COPD (chronic obstructive pulmonary disease) Acute hypoxemic respiratory failure Bacteremia Paroxysmal A-fib Cauda equina compression CHF (congestive heart failure) Family History Pertinent family history: No pertinent family history Social History Social History Household Members: Spouse Housing: Apartment Do you presently have visiting nurse or other home services: Yes Alcohol intake: never Patient Tobacco Use Status: Never used Tobacco Advance Directives: Yes Advance Directives on File: Yes Advance Directives Date on File: 04/21/23 Nutrition Risks: No Nutritional Risk service: No Meds Allergies Allergy/AdvReac Type Severity Reaction Status Date / Time No Known Allergies Allergy Verified 02/10/25 18:13 Active Medications: Current Medications Acetaminophen (Acetaminophen 325 Mg Tablet) 650 mg PO Q6H PRN PRN Reason: Pain, Mild 1-3,fever,headache Last Admin: 02/11/25 08:32 Dose: 650 mg Albuterol/Ipratropium (Albuterol/Iprat 2.5/0.5mg 3 Ml Ampul.Neb) 3 ml INHALE Q4H PRN PRN Reason: Shortness of Breath/Wheezing Apixaban (Apixaban 5 Mg Tablet) 5 mg PO BID [facility] Last Admin: 02/11/25 08:12 Dose: 5 mg Benzonatate (Benzonatate 100 Mg Capsule) 100 mg PO TID PRN PRN Reason: Cough Calcium Carbonate (Calcium Carbonate 750 Mg Tab.Chew) 750 mg PO Q4H PRN PRN Reason: Heartburn Dextrose (Dextrose 50 % 25 Gm/50 Ml Syringe) 25 gm IVPUSH Q15M PRN; Protocol PRN Reason: per Hypoglycemia Standing Ord. Gabapentin (Gabapentin 600 Mg Tablet) 600 mg PO BID [facility] Last Admin: 02/11/25 08:12 Dose: 600 mg Glucose (Glucose Gel 15 Gm Gel..Gram.) 15 gm PO Q15M PRN; Protocol PRN Reason: per Hypoglycemia Standing Ord. Piperacillin Sod/Tazobactam (Sod 3.375 gm/ Sodium Chloride) 50 mls @ 100 mls/hr IV 0000,0600,1200,1800 [facility] Last Infusion: 02/11/25 07:05 Dose: Infused Vancomycin HCl 1,000 mg/ (Sodium Chloride) 270 mls @ 270 mls/hr IV Q12H [facility] Last Admin: 02/11/25 09:47 Dose: 270 mls/hr Insulin Human Lispro (Insulin Lispro 100 Unit/Ml 3 Ml Vial) 0 unit SUBCUT QIDACHS [facility]; Protocol Last Admin: 02/11/25 07:31 Dose: 2 unit Magnesium Hydroxide (Milk Of Magnesia 30 Ml Oral.Susp) 30 ml PO DAILY PRN PRN Reason: Constipation Melatonin (Melatonin 3 Mg Tablet) 6 mg PO BEDTIME PRN PRN Reason: Insomnia Oxycodone HCl (Oxycodone Hcl Immed Release 5 Mg Tablet) 10 mg PO Q6H PRN PRN Reason: Breakthrough Pain Last Admin: 02/11/25 08:12 Dose: 10 mg Pharmacy Consult (Consult Rx Vancomycin Dosing) 1 each MISCELLANE DAILY PRN PRN Reason: Consult order Sodium Chloride (0.9 % Sodium Chloride Flush 3 Ml Syringe) 3 ml IVFLUSH [facility] Last Admin: 02/11/25 07:32 Dose: 3 ml Home Medications ?Medication ?Instructions ?Recorded ?Confirmed ?Last Taken ?Type apixaban 5 mg tablet (Eliquis) 5 mg PO BID 03/26/2303/31/24 History atorvastatin 80 mg tablet 80 mg PO BEDTIME 03/26/2303/31/24 History cholecalciferol (vitamin D3) 25 25 mcg PO DAILY 04/01/24 03/31/24 History mcg (1,000 unit) tablet citalopram 20 mg tablet 20 mg PO DAILY 03/26/2303/1003/31/24 History docusate sodium 50 mg capsule 50 mg PO Q6H PRN WITH OX YCODONE 03/26/23 04/01/24 03/04/24 History eplerenone 50 mg tablet 50 mg PO DAILY 03/26/2303/1003/31/24 History fluticasone fur. 100 mcg-umeclid 1 ea inhalation DAILY 03/26/23 04/01/24 03/31/24 History 62.5 mcg-vilant 25 mcg inhalat.powder (Trelegy Ellipta) gabapentin 600 mg tablet 600 mg PO BID 03/26/2304/0103/31/24 History insulin regular hum U-500 conc 500 40 unit subcut MARCI Y@1730 03/26/23 04/01/24 03/31/24 History unit/mL(3 mL) subcut pen (Humulin R U-500 (Conc) Insulin Kwikpen) losartan 50 mg tablet 50 mg PO DAILY 03/26/23/07/0103/31/24 History nystatin 100,000 unit/gram topical 1 appl topical BID PRN abdominal 03/26/23 04/01/24 03/26/23 History powder rash omeprazole 20 mg capsule,delayed 20 mg PO DAILY@0630 0 03/26/23 04/01/24 03/31/24 History release oxycodone 10 mg tablet 10 mg PO Q6H PRN Moderate Pa in 03/26/23 04/01/24 11/07/23 History (Scale Score 5-6) albuterol sulfate 90 mcg/actuation 2 inh inhalation Q6 H PRN Shortness 11/08/23 04/01/24 Unknown History breath activated powder inhaler Of Breath Or Wheezing hydroxyzine pamoate 25 mg capsule 25 mg PO TID PRN itc h 11/08/23 04/01/24 Unknown History insulin regular hum U-500 conc 500 40 unit subcut MARCI Y@0900 11/08/23 04/01/24 03/31/24 History unit/mL(3 mL) subcut pen (Humulin R U-500 (Conc) Insulin Kwikpen) polyethylene glycol 3350 17 17 g PO DAILY PRN Constipa tion 11/08/23 04/01/24 03/04/24 History gram/dose oral powder (Miralax) tamsulosin 0.4 mg capsule 0.4 mg PO BEDTIME 11/08/23 0 04/01/24 03/31/24 History triamcinolone acetonide 0.1 % 1 appl topical BID 03/0504/01/24 03/31/24 History topical cream famotidine 20 mg tablet 20 mg PO BID 02/11/25 Unkno wn History rosuvastatin 20 mg tablet 20 mg PO DAILY 02/11/25 Unk nown History Physical Exam 2 Vital Signs: Vital Signs: Last Vital Signs Temp 100.2 F 02/11/25 08:57 Pulse 98 02/11/25 08:57 Resp 22 H 02/11/25 08:57 BP 146/76 H 02/11/25 08:57 Pulse Ox 95 02/11/25 08:57 O2 Del Method Room Air 02/11/25 08:57 O2 Flow Rate 2 02/11/25 06:33 FiO2 50 02/10/25 18:48 BMI result Body Mass Index 48.9 Const: General: comfortable and no acute distress O rientation/consciousness: patient oriented x3 HEENT: Other: Unremarkable Head: Yes normal to inspection Neck: Neck: Yes normal visual inspection Chest: Chest palpation & inspection: normal inspection of the chest Resp: Auscultation: clear to auscultation bilaterally Cardio: Palpation: normal PMI Heart sounds: S1 normal heart sound present, S2 normal heart sound present, no gallops, no murmurs and no rubs GI: Palpation (GI): Soft to palpation Back/Spine/Pelvis: Other: unremarkable Skin: General skin exam: no rashes or lesions noted Neuro: General: patient oriented x3 Extrem: Other: Chronic changes in lower extremities Psych: Mental Status: mental status grossly normal Objective Labs and Meds 02/11/25 04:56 02/11/25 04:56 Lab results: Laboratory Results - last 24 hr 02/10/25 02/10/25 02/10/25 18:17 18:29 18:30 WBC 18.7 H RBC 5.86 H Hgb 16.2 Hct 51.6 MCV 88.1 MCH 27.6 MCHC 31.4 RDW 15.5 Plt Count 222 MPV 11.6 Immature Gran % (Auto) 0.7 H Neut % (Auto) 85.6 H Lymph % (Auto) 8.5 L [place] % (Auto) 3.6 Eos % (Auto) 1.1 Baso % (Auto) 0.5 Lymph # (Auto) 1.6 [place] # (Auto) 0.7 Eos # (Auto) 0.2 Baso # (Auto) 0.1 Abs Immat Gran (auto) 0.13 H Absolute Neuts (auto) 16.0 H Absolute Nucleated RBC 0.000 Nucleated RBC % (auto) 0.0 Smear Tech's Comments VBG pH VBG pCO2 VBG pO2 VBG HCO3 VBG O2 Saturation VBG Base Excess Sodium Potassium Chloride Carbon Dioxide Anion Gap BUN Creatinine Estim Creat Clear Calc Estimated GFR POC Glucose 177 H Random Glucose Lactic Acid 3.8 H* Lactic Acid F/U @ 2Hr Lactic Acid F/U @ 4Hr Calcium Total Bilirubin AST ALT Alkaline Phosphatase Troponin I High Sens NT-Pro-B Natriuret Pep Total Protein Albumin Lipase Urine Color Urine Appearance Urine pH Ur Specific [place] Urine Protein Urine Glucose (UA) Urine Ketones Urine Blood Urine Nitrite Ur Leukocyte Esterase Urine RBC Urine WBC Ur Squamous Epith Cells Urine Bacteria Hyaline Casts Influenza Type A (PCR) NEGATIVE Influenza Type B (PCR) NEGATIVE RSV RNA Qual (PCR) NEGATIVE SARS-CoV-2 RNA (RT-PCR) NEGATIVE 02/10/25 02/10/25 02/10/25 18:40 19:03 19:14 WBC RBC Hgb Hct MCV MCH MCHC RDW Plt Count MPV Immature Gran % (Auto) Neut % (Auto) Lymph % (Auto) [place] % (Auto) Eos % (Auto) Baso % (Auto) Lymph # (Auto) [place] # (Auto) Eos # (Auto) Baso # (Auto) Abs Immat Gran (auto) Absolute Neuts (auto) Absolute Nucleated RBC Nucleated RBC % (auto) Smear Tech's Comments VBG pH 7.35 VBG pCO2 37 VBG pO2 67 VBG HCO3 20 L VBG O2 Saturation 90.0 VBG Base Excess -4.1 Sodium 137 Potassium 4.3 Chloride 104 Carbon Dioxide 24 Anion Gap 13 BUN 14 Creatinine 1.05 Estim Creat Clear Calc 77.5 Estimated GFR > 60 POC Glucose Random Glucose 223 H Lactic Acid Lactic Acid F/U @ 2Hr Lactic Acid F/U @ 4Hr Calcium 8.8 Total Bilirubin 1.2 H AST 16 ALT < 6 Alkaline Phosphatase 129 H Troponin I High Sens 49.5 H D NT-Pro-B Natriuret Pep 1749.6 H Total Protein 7.4 Albumin 3.7 Lipase 5 L Urine Color Yellow Urine Appearance Clear Urine pH 5.0 Ur Specific [place] >= 1.030 H Urine Protein 100 (2+) H Urine Glucose (UA) >=1000 H Urine Ketones Negative Urine Blood Small (1+) H Urine Nitrite Negative Ur Leukocyte Esterase Negative Urine RBC 6-10 H Urine WBC 6-10 H Ur Squamous Epith Cells 0-2 Urine Bacteria None Seen Hyaline Casts 0-2 Influenza Type A (PCR) Influenza Type B (PCR) RSV RNA Qual (PCR) SARS-CoV-2 RNA (RT-PCR) 12/07/3102/10/25 02/11/25 20:44 22:58 04:56 WBC 23.2 H RBC 5.22 Hgb 14.3 Hct 45.5 MCV 87.2 MCH 27.4 MCHC 31.4 RDW 15.7 Plt Count 217 MPV 10.5 Immature Gran % (Auto) 0.9 H Neut % (Auto) 89.7 H Lymph % (Auto) 5.1 L [place] % (Auto) 4.0 Eos % (Auto) 0.0 Baso % (Auto) 0.3 Lymph # (Auto) 1.2 [place] # (Auto) 0.9 Eos # (Auto) 0.0 Baso # (Auto) 0.1 Abs Immat Gran (auto) 0.21 H Absolute Neuts (auto) 20.8 H Absolute Nucleated RBC 0.000 Nucleated RBC % (auto) 0.0 Smear Tech's Comments VERIFIED VBG pH VBG pCO2 VBG pO2 VBG HCO3 VBG O2 Saturation VBG Base Excess Sodium 139 Potassium 4.7 Chloride 105 Carbon Dioxide 21 L Anion Gap 18 BUN 15 Creatinine 1.03 Estim Creat Clear Calc 79.0 Estimated GFR > 60 POC Glucose Random Glucose 210 H Lactic Acid Lactic Acid F/U @ 2Hr 2.4 H* Lactic Acid F/U @ 4Hr 2.3 H* Calcium 8.7 Total Bilirubin 1.5 H AST 18 ALT < 6 Alkaline Phosphatase 111 Troponin I High Sens NT-Pro-B Natriuret Pep Total Protein 6.9 Albumin 3.4 L Lipase Urine Color Urine Appearance Urine pH Ur Specific [place] Urine Protein Urine Glucose (UA) Urine Ketones Urine Blood Urine Nitrite Ur Leukocyte Esterase Urine RBC Urine WBC Ur Squamous Epith Cells Urine Bacteria Hyaline Casts Influenza Type A (PCR) Influenza Type B (PCR) RSV RNA Qual (PCR) SARS-CoV-2 RNA (RT-PCR) 02/11/25 02/11/25 07:11 09:33 WBC RBC Hgb Hct MCV MCH MCHC RDW Plt Count MPV Immature Gran % (Auto) Neut % (Auto) Lymph % (Auto) [place] % (Auto) Eos % (Auto) Baso % (Auto) Lymph # (Auto) [place] # (Auto) Eos # (Auto) Baso # (Auto) Abs Immat Gran (auto) Absolute Neuts (auto) Absolute Nucleated RBC Nucleated RBC % (auto) Smear Tech's Comments VBG pH VBG pCO2 VBG pO2 VBG HCO3 VBG O2 Saturation VBG Base Excess Sodium Potassium Chloride Carbon Dioxide Anion Gap BUN Creatinine Estim Creat Clear Calc Estimated GFR POC Glucose 183 H Random Glucose Lactic Acid Lactic Acid F/U @ 2Hr Lactic Acid F/U @ 4Hr Calcium Total Bilirubin AST ALT Alkaline Phosphatase Troponin I High Sens 60.9 H NT-Pro-B Natriuret Pep Total Protein Albumin Lipase Urine Color Urine Appearance Urine pH Ur Specific [place] Urine Protein Urine Glucose (UA) Urine Ketones Urine Blood Urine Nitrite Ur Leukocyte Esterase Urine RBC Urine WBC Ur Squamous Epith Cells Urine Bacteria Hyaline Casts Influenza Type A (PCR) Influenza Type B (PCR) RSV RNA Qual (PCR) SARS-CoV-2 RNA (RT-PCR) ECG Interpretation: EKGs suggestive of atrial flutter with controlled ventricular response at 55/Min. Repeat EKG also similar rhythm with a rate of 89/Min. Assessment and Plan (1) Acute on chronic congestive heart failure: Status: Acute (2) Persistent atrial fibrillation: Status: Acute (3) Sepsis: Qualifiers: Sepsis acute organ dysfunction status: with acute organ dysfunction S epsis type: sepsis due to unspecified organism Severe sepsis acute organ dysfunction type: unspecified Severe sepsis shock status: without septic shock Qualified Code(s): A41.9 - Sepsis, unspecified organism; R65.20 - Severe sepsis without septic shock Status: Acute Plan Pertinent studies reviewed. CT scan reported as moderate cardiomegaly, diffuse interstitial thickening with patchy ground-glass opacities/pleural effusions concerning for fluid overload/CHF. NT pro BNP is 1749. High sensitivity troponins are borderline high at 49 and 60. Creatinine 1.03. Echocardiogram from 02/2024-LVEF 65-70%. Moderate LVH. No significant valvular findings but not well visualized either. Overall, many comorbidities, minimal ambulation, chronic persistent/permanent atrial fibrillation, based on leukocytosis, probably has some infection but could have superimposed congestive heart failure. Can do empiric IV diuretics. And some IV Lasix. With regard to the atrial fibrillation, rate seems controlled. Continue the usual dose of beta-sandi. Continue anticoagulation. Procedures Date of Service Date of Service: 02/11/25
[2025-02-11] MEDS: Metoprolol Succinate ER 50 MG TAB.ER.24H PO (11:13)
--- NOTE | 2025-02-11 11:24 | PC.NURSE ---
Assumed care of patient at this time. Pt initially sleeping upon walking in to room. Awoke easily to verbal stimuli. Denies any complaints at this time. Breathing unlabored, SPO2 maintaining on room air with SPO2 of 93-94%. Other vitals stable. A Fib on monitor with rate in 80s-90s. Afebrile via temp sensing FC. FC draining without issue, dark concentrated urine noted. Medicated with PO Metorprolol as ordered. Awaiting admission. Remains on full cardiac monitoring.
--- NOTE | 2025-02-11 12:10 | HO.PM.IMPN ---
Subjective Subjective Date of Service: 02/11/25 Interval History: Pt somnolent but arousable, answering appropriately Has lower abdominal and scrotal discomfort at bedside states redness has been getting worse for the past week; had loss of skin on scrotum, multiple bleeding ulcerations on abd Pt with episode of chest pain, EKG showing Aflutter Review of Systems Review of Systems: Yes all other systems are reviewed and are negative Physical Exam Exam: Exam: General: Somnolent but arousable, no acute distress Resp: CTA bilaterally CVS: Irregularly irregular rhythm GI/: +BS, diffuse lower abdominal tenderness. Abdomen and scrotum with erythema, multiple superficial ulcerations, obese, as pictured below Skin: Warm, dry Neuro: Cranial nerves II-XII grossly intact bilaterally. Motor grossly intact bilaterally Extremities: Significant bilateral chronic venous stasis as pictured below Psych: Appropriate affect Vital Signs: Vital Signs: Last Vital Signs Temp 99.1 F 02/11/25 12:09 Pulse 64 02/11/25 12:09 Resp 16 02/11/25 12:09 BP 113/41 L 02/11/25 12:09 Pulse Ox 93 02/11/25 12:09 O2 Del Method Room Air 02/11/25 12:09 O2 Flow Rate 2 02/11/25 06:33 FiO2 50 02/10/25 18:48 BMI result Body Mass Index 48.9 Objective Data Active Medications Acetaminophen (Acetaminophen 325 Mg Tablet) 650 mg PO Q6H PRN PRN Reason: Pain, Mild 1-3,fever,headache Last Admin: 02/11/25 08:32 Dose: 650 mg Documented By: MAYELA Albuterol/Ipratropium (Albuterol/Iprat 2.5/0.5mg 3 Ml Ampul.Neb) 3 ml INHALE Q4H PRN PRN Reason: Shortness of Breath/Wheezing Apixaban (Apixaban 5 Mg Tablet) 5 mg PO BID JOSEFA Last Admin: 02/11/25 08:12 Dose: 5 mg Documented By: MAYELA Benzonatate (Benzonatate 100 Mg Capsule) 100 mg PO TID PRN PRN Reason: Cough Calcium Carbonate (Calcium Carbonate 750 Mg Tab.Chew) 750 mg PO Q4H PRN PRN Reason: Heartburn Dextrose (Dextrose 50 % 25 Gm/50 Ml Syringe) 25 gm IVPUSH Q15M PRN; Protocol PRN Reason: per Hypoglycemia Standing Ord. Gabapentin (Gabapentin 600 Mg Tablet) 600 mg PO BID [facility] Last Admin: 02/11/25 08:12 Dose: 600 mg Documented By: MAYELA Glucose (Glucose Gel 15 Gm Gel..Gram.) 15 gm PO Q15M PRN; Protocol PRN Reason: per Hypoglycemia Standing Ord. Piperacillin Sod/Tazobactam (Sod 3.375 gm/ Sodium Chloride) 50 mls @ 100 mls/hr IV 0000,0600,1200,1800 [facility] Last Infusion: 02/11/25 07:05 Dose: Infused Documented By: MAYELA Vancomycin HCl 1,000 mg/ (Sodium Chloride) 270 mls @ 270 mls/hr IV Q12H [facility] Last Infusion: 02/11/25 11:15 Dose: Infused Documented By: RIVER Insulin Human Lispro (Insulin Lispro 100 Unit/Ml 3 Ml Vial) 0 unit SUBCUT QIDACHS [facility]; Protocol Last Admin: 02/11/25 07:31 Dose: 2 unit Documented By: MAYELA Comments: no stickers in pyxis to scan Magnesium Hydroxide (Milk Of Magnesia 30 Ml Oral.Susp) 30 ml PO DAILY PRN PRN Reason: Constipation Melatonin (Melatonin 3 Mg Tablet) 6 mg PO BEDTIME PRN PRN Reason: Insomnia Metoprolol Succinate (Metoprolol Succinate Er 50 Mg Tab.Er.24h) 50 mg PO DAILY [facility]; Protocol Last Admin: 02/11/25 11:13 Dose: 50 mg Documented By: RIVER Oxycodone HCl (Oxycodone Hcl Immed Release 5 Mg Tablet) 10 mg PO Q6H PRN PRN Reason: Breakthrough Pain Last Admin: 02/11/25 08:12 Dose: 10 mg Documented By: MAYELA Pharmacy Consult (Consult Rx Vancomycin Dosing) 1 each MISCELLANE DAILY PRN PRN Reason: Consult order Sodium Chloride (0.9 % Sodium Chloride Flush 3 Ml Syringe) 3 ml IVFLUSH QSHIFT [facility] Last Admin: 02/11/25 07:32 Dose: 3 ml Documented By: MAYELA Labs 02/11/25 04:56 02/11/25 04:56 Labs: Laboratory Results - last 24 hr 02/10/25 02/10/25 02/10/25 18:17 18:29 18:30 MCV 88.1 MCH 27.6 MCHC 31.4 RDW 15.5 Plt Count 222 MPV 11.6 Immature Gran % (Auto) 0.7 H Neut % (Auto) 85.6 H Lymph % (Auto) 8.5 L Randall % (Auto) 3.6 Eos % (Auto) 1.1 Baso % (Auto) 0.5 Lymph # (Auto) 1.6 Randall # (Auto) 0.7 Eos # (Auto) 0.2 Baso # (Auto) 0.1 Abs Immat Gran (auto) 0.13 H Absolute Neuts (auto) 16.0 H Absolute Nucleated RBC 0.000 Nucleated RBC % (auto) 0.0 Smear Tech's Comments VBG pH VBG pCO2 VBG pO2 VBG HCO3 VBG O2 Saturation VBG Base Excess Anion Gap Estim Creat Clear Calc Estimated GFR POC Glucose 177 H Random Glucose Lactic Acid 3.8 H* Lactic Acid F/U @ 2Hr Lactic Acid F/U @ 4Hr Calcium Total Bilirubin AST ALT Alkaline Phosphatase Troponin I High Sens NT-Pro-B Natriuret Pep Total Protein Albumin Lipase Urine Color Urine Appearance Urine pH Ur Specific [place] Urine Protein Urine Glucose (UA) Urine Ketones Urine Blood Urine Nitrite Ur Leukocyte Esterase Urine RBC Urine WBC Ur Squamous Epith Cells Urine Bacteria Hyaline Casts Influenza Type A (PCR) NEGATIVE Influenza Type B (PCR) NEGATIVE RSV RNA Qual (PCR) NEGATIVE SARS-CoV-2 RNA (RT-PCR) NEGATIVE 02/10/25 02/10/25 02/10/25 18:40 19:03 19:14 MCV MCH MCHC RDW Plt Count MPV Immature Gran % (Auto) Neut % (Auto) Lymph % (Auto) Randall % (Auto) Eos % (Auto) Baso % (Auto) Lymph # (Auto) Randall # (Auto) Eos # (Auto) Baso # (Auto) Abs Immat Gran (auto) Absolute Neuts (auto) Absolute Nucleated RBC Nucleated RBC % (auto) Smear Tech's Comments VBG pH 7.35 VBG pCO2 37 VBG pO2 67 VBG HCO3 20 L VBG O2 Saturation 90.0 VBG Base Excess -4.1 Anion Gap 13 Estim Creat Clear Calc 77.5 Estimated GFR > 60 POC Glucose Random Glucose 223 H Lactic Acid Lactic Acid F/U @ 2Hr Lactic Acid F/U @ 4Hr Calcium 8.8 Total Bilirubin 1.2 H AST 16 ALT < 6 Alkaline Phosphatase 129 H Troponin I High Sens 49.5 H D NT-Pro-B Natriuret Pep 1749.6 H Total Protein 7.4 Albumin 3.7 Lipase 5 L Urine Color Yellow Urine Appearance Clear Urine pH 5.0 Ur Specific [place] >= 1.030 H Urine Protein 100 (2+) H Urine Glucose (UA) >=1000 H Urine Ketones Negative Urine Blood Small (1+) H Urine Nitrite Negative Ur Leukocyte Esterase Negative Urine RBC 6-10 H Urine WBC 6-10 H Ur Squamous Epith Cells 0-2 Urine Bacteria None Seen Hyaline Casts 0-2 Influenza Type A (PCR) Influenza Type B (PCR) RSV RNA Qual (PCR) SARS-CoV-2 RNA (RT-PCR) 02/10/25 02/10/25 02/11/25 20:44 22:58 04:56 MCV 87.2 MCH 27.4 MCHC 31.4 RDW 15.7 Plt Count 217 MPV 10.5 Immature Gran % (Auto) 0.9 H Neut % (Auto) 89.7 H Lymph % (Auto) 5.1 L Randall % (Auto) 4.0 Eos % (Auto) 0.0 Baso % (Auto) 0.3 Lymph # (Auto) 1.2 Randall # (Auto) 0.9 Eos # (Auto) 0.0 Baso # (Auto) 0.1 Abs Immat Gran (auto) 0.21 H Absolute Neuts (auto) 20.8 H Absolute Nucleated RBC 0.000 Nucleated RBC % (auto) 0.0 Smear Tech's Comments VERIFIED VBG pH VBG pCO2 VBG pO2 VBG HCO3 VBG O2 Saturation VBG Base Excess Anion Gap 18 Estim Creat Clear Calc 79.0 Estimated GFR > 60 POC Glucose Random Glucose 210 H Lactic Acid Lactic Acid F/U @ 2Hr 2.4 H* Lactic Acid F/U @ 4Hr 2.3 H* Calcium 8.7 Total Bilirubin 1.5 H AST 18 ALT < 6 Alkaline Phosphatase 111 Troponin I High Sens NT-Pro-B Natriuret Pep Total Protein 6.9 Albumin 3.4 L Lipase Urine Color Urine Appearance Urine pH Ur Specific [place] Urine Protein Urine Glucose (UA) Urine Ketones Urine Blood Urine Nitrite Ur Leukocyte Esterase Urine RBC Urine WBC Ur Squamous Epith Cells Urine Bacteria Hyaline Casts Influenza Type A (PCR) Influenza Type B (PCR) RSV RNA Qual (PCR) SARS-CoV-2 RNA (RT-PCR) 02/11/25 02/11/25 07:11 09:33 MCV MCH MCHC RDW Plt Count MPV Immature Gran % (Auto) Neut % (Auto) Lymph % (Auto) Randall % (Auto) Eos % (Auto) Baso % (Auto) Lymph # (Auto) Randall # (Auto) Eos # (Auto) Baso # (Auto) Abs Immat Gran (auto) Absolute Neuts (auto) Absolute Nucleated RBC Nucleated RBC % (auto) Smear Tech's Comments VBG pH VBG pCO2 VBG pO2 VBG HCO3 VBG O2 Saturation VBG Base Excess Anion Gap Estim Creat Clear Calc Estimated GFR POC Glucose 183 H Random Glucose Lactic Acid Lactic Acid F/U @ 2Hr Lactic Acid F/U @ 4Hr Calcium Total Bilirubin AST ALT Alkaline Phosphatase Troponin I High Sens 60.9 H NT-Pro-B Natriuret Pep Total Protein Albumin Lipase Urine Color Urine Appearance Urine pH Ur Specific [place] Urine Protein Urine Glucose (UA) Urine Ketones Urine Blood Urine Nitrite Ur Leukocyte Esterase Urine RBC Urine WBC Ur Squamous Epith Cells Urine Bacteria Hyaline Casts Influenza Type A (PCR) Influenza Type B (PCR) RSV RNA Qual (PCR) SARS-CoV-2 RNA (RT-PCR) Assessment and Plan (1) Sepsis: Status: Acute (2) Cellulitis: Status: Acute Plan 80-year-old male with a past medical history of history, HLD, CHF, AFib on Eliquis, neuropathy, diabetes, COPD, history of cauda equina compression, obesity, spinal stenosis, mostly wheelchair-bound; presented to the hospital today with a chief complaint of shortness of breath, lethargy/altered mental status. Admitted for following Acute metabolic encephalopathy in the setting of abdominal wall cellulitis with severe sepsis Pt lethargic and obtunded at home, somnolent in the ED Pelvis CT with findings suggestive of cellulitis in lower abdomen extending to perineum Met sepsis criteria with fever, tachycardia, tachypnea, leukocytosis; severe features requiring BiPAP/CPAP and initial lactic acid 3.8 Continue vanc and Zosyn, started 02/10 ID consult Follow blood cultures PT/OT when ready for discharge. Chronic AFib with new atrial flutter EKG showing new atrial flutter Cardiology consulted, continue home dose of metoprolol Continue home Eliquis Acute on chronic CHF Chest x-ray showed mild congestion; noted elevated proBNP Patient initially not given Lasix due to sepsis Cardiology consulted, will give empiric Lasix 40mg IV daily as BP allows BP currently soft, will hold on IV diuretics Daily weights and I's and os. Elevated troponins Chronically elevated Initial troponin 49.5 with repeat 60.9 Likely type 2 in the setting of increased demand Monitor on telemetry Insulin-dependent type 2 Diabetes Insulin sliding scale, Lantus Diabetic diet COPD: Stable. DuoNebs p.r.n. Lactic acidosis: Patient was given gentle IV fluids in the ER. Improving. DVT prophylaxis: Patient on Eliquis Code status: DNR/DNI, confirmed with the patient's Quality Stroke Does the patient have a stroke diagnosis?: No VTE Prior VTE?: No VTE Risk Level:: Medical - moderate - high VTE Device Contraindication: Treatment Not Indicated VTE Drug Contraindication: N/A - Med Ordered
[2025-02-11 12:14] LABS: Glucose, Whole Blood 150 mg/dL (60-115)
--- NOTE | 2025-02-11 12:38 | HO.NURTONUR ---
80 year old male brought to ED by EMS from home for concerns of AMS/SOB x1 day. Pt with extensive medical history including diabetes, CHF, COPD. Initially on CPAP on arrival, trialed BiPAP and nasal cannula while in ED and currently on room air. Pt with elevated WBC/lactic/BNP/trop. Febrile at some points during ED stay. Pt alert and oriented. Wheelchair bound primarily, up with assist and walker. Attempt in ED to commode with previous RN. Temp sensing FC in place. Dark yellow urine draining. Bilateral leg wounds. Panus cellulitic. x2 PIV in place. Currently in hospital bed. at bedside.
--- NOTE | 2025-02-11 13:12 | PHA.MEDREC ---
Addendum entered by Argenis Michaels RPh 02/11/25 13:27: Reviewed by pharmacist Original Note: Pharmacy Consult ? Medication Reconciliation Pharmacy has completed the medication reconciliation. Confirmed medication list with Spouse of patient and medication list from home. patient took all Non-PRN morning medications, including Eliquis on Thursday morning. Patient took all non-PRN night medications and night doses of BID and TID meds on night. Patient last took oxycodone 10 mg at home Thursday at 12:00. Patient no longer taking Atorvastatin 80 mg, Cefuroxime 500 mg, or Omeprazole 20 mg.
[2025-02-11 16:44] LABS: Glucose, Whole Blood 203 mg/dL (60-115)
[2025-02-11 20:52] LABS: Glucose, Whole Blood 180 mg/dL (60-115)
--- NOTE | 2025-02-11 23:54 | W.PM.IDCN ---
History of Present Illness Data of Consult Service Date: 02/11/25 Requesting physician: Janine Montilla Primary Care Provider: Unknown Physician HPI Reason for consult: sepsis,abdominal wall cellulitis He presents with shortness of breath and encephalopathy yesterday. He had temperature of 101 and tachycardia to 110. LA 2.3 and WBC [address] shows no free air. Review of Systems Review of Systems: Yes all other systems are reviewed and are negative [facility] Past Medical History Medical History Persistent atrial fibrillation Acute CHF Sepsis Abdominal pain COPD (chronic obstructive pulmonary disease) Acute hypoxemic respiratory failure Bacteremia Paroxysmal A-fib Cauda equina compression CHF (congestive heart failure) Family History Family history: reviewed and not pertinent Social History Social History Household Members: Spouse Housing: Apartment Do you presently have visiting nurse or other home services: Yes Alcohol intake: never Patient Tobacco Use Status: Never used Tobacco Advance Directives Date on File: 04/21/23 service: No Meds Allergies Allergy/AdvReac Type Severity Reaction Status Date / Time No Known Allergies Allergy Verified 02/10/25 18:13 Active Medications: Current Medications Acetaminophen (Acetaminophen 325 Mg Tablet) 650 mg PO Q6H PRN PRN Reason: Pain, Mild 1-3,fever,headache Last Admin: 02/11/25 08:32 Dose: 650 mg Albuterol/Ipratropium (Albuterol/Iprat 2.5/0.5mg 3 Ml Ampul.Neb) 3 ml INHALE Q4H PRN PRN Reason: Shortness of Breath/Wheezing Apixaban (Apixaban 5 Mg Tablet) 5 mg PO BID JOSEFA Last Admin: 02/11/25 20:18 Dose: 5 mg Atorvastatin Calcium (Atorvastatin Calcium 80 Mg Tablet) 80 mg PO DAILY JOSEFA Benzonatate (Benzonatate 100 Mg Capsule) 100 mg PO TID PRN PRN Reason: Cough Calcium Carbonate (Calcium Carbonate 750 Mg Tab.Chew) 750 mg PO Q4H PRN PRN Reason: Heartburn Dextrose (Dextrose 50 % 25 Gm/50 Ml Syringe) 25 gm IVPUSH Q15M PRN; Protocol PRN Reason: per Hypoglycemia Standing Ord. Docusate Sodium (Docusate Sodium 100 Mg/10 Ml Liquid) 50 mg PO Q6H PRN PRN Reason: WITH OXYCODONE Empagliflozin (Empagliflozin 25 Mg Tablet) 25 mg PO DAILY [facility] Escitalopram Oxalate (Escitalopram Oxalate 10 Mg Tablet) 10 mg PO DAILY [facility] Famotidine (Famotidine 20 Mg Tablet) 20 mg PO BID [facility] Last Admin: 02/11/25 20:18 Dose: 20 mg Fluticasone/Umeclidinium/Vilanterol (Fluticasone/Umeclidinium/Vilanterol 100/62.5/25 Blst.W.Dev) 1 puff INHALE RDAILY [facility] Gabapentin (Gabapentin 600 Mg Tablet) 600 mg PO BID [facility] Last Admin: 02/11/25 20:18 Dose: 600 mg Glucose (Glucose Gel 15 Gm Gel..Gram.) 15 gm PO Q15M PRN; Protocol PRN Reason: per Hypoglycemia Standing Ord. Hydroxyzine HCl (Hydroxyzine Hcl 25 Mg Tablet) 25 mg PO TID PRN PRN Reason: itch Piperacillin Sod/Tazobactam (Sod 3.375 gm/ Sodium Chloride) 50 mls @ 100 mls/hr IV 0000,0600,1200,1800 [facility] Last Admin: 02/11/25 23:38 Dose: 100 mls/hr Vancomycin HCl 1,000 mg/ (Sodium Chloride) 270 mls @ 270 mls/hr IV Q12H [facility] Last Infusion: 02/11/25 21:20 Dose: Infused Insulin Human Lispro (Insulin Lispro 100 Unit/Ml 3 Ml Vial) 0 unit SUBCUT QIDACHS [facility]; Protocol Last Admin: 02/11/25 21:03 Dose: 2 unit Losartan Potassium (Losartan Potassium 50 Mg Tablet) 50 mg PO DAILY [facility]; Protocol Magnesium Hydroxide (Milk Of Magnesia 30 Ml Oral.Susp) 30 ml PO DAILY PRN PRN Reason: Constipation Melatonin (Melatonin 3 Mg Tablet) 6 mg PO BEDTIME PRN PRN Reason: Insomnia Metoprolol Succinate (Metoprolol Succinate Er 50 Mg Tab.Er.24h) 50 mg PO DAILY [facility]; Protocol Last Admin: 02/11/25 11:13 Dose: 50 mg Oxycodone HCl (Oxycodone Hcl Immed Release 5 Mg Tablet) 10 mg PO Q6H PRN PRN Reason: Breakthrough Pain Last Admin: 02/11/25 08:12 Dose: 10 mg Pharmacy Consult (Consult Rx Vancomycin Dosing) 1 each MISCELLANE DAILY PRN PRN Reason: Consult order Polyethylene Glycol (Polyethylene Glycol 3350 17 Gm Powd.Pack) 17 gm PO DAILY PRN PRN Reason: Constipation Sodium Chloride (0.9 % Sodium Chloride Flush 3 Ml Syringe) 3 ml IVFLUSH QSHIFT [facility] Last Admin: 02/11/25 16:48 Dose: 3 ml Tamsulosin HCl (Tamsulosin Hcl 0.4 Mg Capsule) 0.4 mg PO BEDTIME [facility] Last Admin: 02/11/25 20:18 Dose: 0.4 mg Vitamin D (Cholecalciferol (Vitamin D3) 25 Mcg Tablet) 25 mcg PO DAILY [facility] Home Medications ?Medication ?Instructions ?Recorded ?Confirmed ?Last Taken ?Type apixaban 5 mg tablet (Eliquis) 5 mg PO BID 03/26/23 02/11/25 02/10/25 History cholecalciferol (vitamin D3) 25 25 mcg PO DAILY 03/26/23 02/11/25 02/10/25 History mcg (1,000 unit) tablet citalopram 20 mg tablet 20 mg PO DAILY 03/26/23 02/11/25 02/10/25 History docusate sodium 50 mg capsule 50 mg PO Q6H PRN WITH OXYCODONE 03/26/23 02/11/25 03/04/24 History eplerenone 50 mg tablet 50 mg PO DAILY 03/26/23 02/11/25 02/10/25 History fluticasone fur. 100 mcg-umeclid 1 ea inhalation DAILY 03/26/23 02/11/25 02/10/25 History 62.5 mcg-vilant 25 mcg inhalat.powder (Trelegy Ellipta) gabapentin 600 mg tablet 600 mg PO TID 03/26/23 02/11/25 02/10/25 History insulin regular hum U-500 conc 500 45 unit subcut DAILY@1730 03/26/23 02/11/25 02/09/25 17:30 History unit/mL(3 mL) subcut pen (Humulin R U-500 (Conc) Insulin Kwikpen) losartan 50 mg tablet 50 mg PO DAILY 03/26/23 02/11/25 02/10/25 History nystatin 100,000 unit/gram topical 1 appl topical BID PRN abdominal 03/26/23 02/11/25 02/10/25 History powder rash oxycodone 10 mg tablet 10 mg PO Q6H PRN Moderate Pain 03/26/23 02/11/25 02/10/25 History (Scale Score 5-6) albuterol sulfate 90 mcg/actuation 2 inh inhalation Q6H PRN Shortness 11/08/23 02/11/25 Unknown History breath activated powder inhaler Of Breath Or Wheezing hydroxyzine pamoate 25 mg capsule 25 mg PO TID PRN itch 11/08/23 02/11/25 02/10/25 History insulin regular hum U-500 conc 500 50 unit subcut DAILY@0900 11/08/23 02/11/25 02/10/25 09:00 History unit/mL(3 mL) subcut pen (Humulin R U-500 (Conc) Insulin Kwikpen) polyethylene glycol 3350 17 17 g PO DAILY PRN Constipation 11/08/23 02/11/25 03/04/24 History gram/dose oral powder (Miralax) tamsulosin 0.4 mg capsule 0.4 mg PO BEDTIME 11/08/23 02/11/25 02/09/25 History triamcinolone acetonide 0.1 % 1 appl topical BID 03/05/24 02/11/25 02/10/25 History topical cream empagliflozin 25 mg tablet 25 mg PO DAILY 02/11/25 02/11/25 02/10/25 History famotidine 20 mg tablet 20 mg PO BID 02/11/25 02/11/25 02/10/25 History rosuvastatin 20 mg tablet 20 mg PO DAILY 02/11/25 02/11/25 02/10/25 History Physical Exam Vital Signs: Vital Signs: Last Vital Signs Temp 98.0 F 02/11/25 23:43 Pulse 69 02/11/25 23:43 Resp 20 02/11/25 23:43 BP 124/73 02/11/25 23:43 Pulse Ox 95 02/11/25 23:43 O2 Del Method Room Air 02/11/25 23:43 O2 Flow Rate 2 02/11/25 06:33 FiO2 50 02/10/25 18:48 BMI result Body Mass Index 49.9 Const: General: cooperative HEENT: Head: Yes normal to inspection Face and sinus: Yes normal facial exam Mouth: Normal oral and palatal mucosa present Teeth and gingiva: dentition normal Eyes: General: appearance normal, both eyes and all related structures Pupils: Equal, round and reactive pupils present Resp: Effort & Inspection: normal respiratory effort Cardio: Rate: regular rate Rhythm: regular rhythm GI: Other: abdomen peau d'orange appearance below umbilicus to groin area Palpation (GI): Soft to palpation and nontender : General: Yes no CVA tenderness Back/Spine/Pelvis: Back: no CVA tenderness Skin: General skin exam: no rashes or lesions noted Neuro: General: moves all extremities Cranial nerves: Yes Equal, round and reactive pupils present Extrem: Other: scaly skin legs ,chronic venous stasis Psych: Appearance: grossly normal Results Labs 02/11/25 04:56 02/11/25 04:56 Labs: Short CBC 02/11/25 Range/Units 04:56 WBC 23.2 H (4.8-10.8) X10*3/uL Hgb 14.3 (14.0-18.0) g/dl Hct 45.5 (42.0-52.0) % Plt Count 217 (160-400) X10*3/uL BMP 02/11/25 04:56 Sodium 139 Potassium 4.7 Chloride 105 Carbon Dioxide 21 L BUN 15 Creatinine 1.03 Calcium 8.7 Liver Function 02/11/25 Range/Units 04:56 Total Bilirubin 1.5 H (0.0-1.0) mg/dL AST 18 (5-37) U/L ALT < 6 (0-40) U/L Alkaline Phosphatase 111 (39-117) U/L Albumin 3.4 L (3.5-5.0) g/dL Microbiology Microbiology Results: Microbiology 02/10/25 18:30 Blood - Venous Blood Culture - Preliminary No growth after 24 hours. 02/10/25 18:23 Blood - Venous Blood Culture - Preliminary No growth after 24 hours. Assessment and Plan (1) Cellulitis: Qualifiers: Site of cellulitis: unspecified site Qualified Code(s): L03.90 - Cellulitis, unspecified Status: Acute (2) Sepsis: Qualifiers: Sepsis acute organ dysfunction status: with acute organ dysfunction Sepsis type: sepsis due to unspecified organism Severe sepsis acute organ dysfunction type: unspecified Severe sepsis shock status: without septic shock Qualified Code(s): A41.9 - Sepsis, unspecified organism; R65.20 - Severe sepsis without septic shock Status: Acute Plan He has probable sepsis due to strep infection He has had recurrent Group B strep infections from leg infection in past and I saw 02/2024 and 03/2024. He has increasing leukocytosis Would continue Vancomycin and piperacillin/tazobactam. If increased WBC continues have Surgery evaluation although necrotizing fasciitis less likely Await blood cultures,he has had IV Ceftriaxone in past for Group B strep
[2025-02-12] VITALS (8 sets, daily range): BP systolic 109–177; BP diastolic 61–95; PULSE 58–110; RESP 16–20; TEMP 36.2–37.1; O2SAT 91–97
[2025-02-12] MEDS: oxyCODONE HCl Immed Release 5 MG TABLET 10 MG PO (02:25)
[2025-02-12] MEDS: Fluticasone/Umeclidinium/Vilanterol 100/62.5/25 BLST.W.DEV 1 PUFF INHALE (07:14)
[2025-02-12 07:16] LABS: Glucose, Whole Blood 165 mg/dL (60-115)
[2025-02-12 08:13] LABS: Hematocrit 44.3 % (42.0-52.0); Hemoglobin 14.0 g/dl (14.0-18.0); Mean Corpuscular HGB Conc 31.6 g/dl (31.0-36.0); Mean Corpuscular Hemoglobin 27.7 pg (27.0-33.0); Mean Corpuscular Volume 87.7 fL (80.0-98.0); NRBC Abs Auto 0.000 X10*3/uL (0.0-0.012); NRBC Pct Auto 0.0 /100WBC (0.0-0.2); Platelet Count 212 X10*3/uL (160-400); Red Blood Count 5.05 X10*6/uL (4.60-5.80); White Blood Count 11.3 X10*3/uL (4.8-10.8)
[2025-02-12] MEDS: Metoprolol Succinate ER 50 MG TAB.ER.24H PO (08:19)
[2025-02-12] MEDS: 0.9 % Sodium Chloride Flush 3 ML SYRINGE IVFLUSH ×3 (08:21→21:26)
[2025-02-12 08:47] LABS: Alanine Aminotransferase < 6 U/L (0-40); Albumin Level 3.3 g/dL (3.5-5.0); Alkaline Phosphatase 100 U/L (39-117); Anion Gap 15 (12-20); Aspartate Amino Transferase 20 U/L (5-37); Blood Urea Nitrogen 19 mg/dL (9-16); Calcium 8.7 mg/dL (8.4-10.2); Carbon Dioxide 23 mmol/L (22-29); Chloride 103 mmol/L (96-108); Creatinine Clr Calc Pharmacy 80.0; Estimated Glomerular Filt Rate > 60; Potassium 4.1 mmol/L (3.3-5.1); Sodium 137 mmol/L (135-145); Total Protein 6.9 g/dL (6.5-8.0)
--- NOTE | 2025-02-12 08:50 | HE.PHANOTE ---
kassidy grimes patients level came back this morning at 15.9. will decrease dose to 750 mg Q12H as [employer] is predicting the patients level will become supratherapeutic. next level to be drawn /08 @0700 to ensure safety vs efficacy.
--- NOTE | 2025-02-12 11:10 | MHC.CM.PN ---
IMM GIVEN 02/12. THIS CM MET WITH PATIENT, HE STATES HE IS HARD OF HEARING AND REQUESTED THIS CM TO CALL AND SPEAK WITH HIS AMANDA. PER AMANDA, PATIENT LIVES AT HOME WITH HER IN A SENIOR BUILDING, SHE IS HIS PRIMARY CAREGIVER. AMANDA STATES THEY ARE IN THE PROCESS OF GETTING A HANDICAPPED APARTMENT, BUT IT'S NOT READY, AND ITS BEEN CHALLENGING TO CARE FOR HIM IN THEIR CURRENT LIVING SPACE. PATIENT IS ACTIVE WITH [facility], THEY PROVIDE WOUND CARE. DME: WHEELCHAIR, ELECTRIC WHEELCHAIR, BEDSIDE COMMODE (WHICH IS CURRENTLY BROKEN), SHOWER CHAIR, MODIFIED BATHROOM (BUT HE CAN'T FIT INSIDE AND HASN'T BEEN ABLE TO SHOWER). DP: RETURN HOME/RESUME [facility] VS STR. AMANDA WOULD LIKE PATIENT TO GO TO REHAB PRIOR TO RETURNING HOME, STATING [facility] WOULD BE THEIR FIRST CHOICE, THEY HAVE HAD BAD EXPERIENCES WITH BOTH [facility] AND [facility] IN THE PAST. PATIENT WILL TRANSPORT VIA BLS. HCP ON FILE AND VERIFIED. PCP: DR. RAHUL IRVIN
[2025-02-12 11:30] LABS: Glucose, Whole Blood 160 mg/dL (60-115)
[2025-02-12 16:19] LABS: Glucose, Whole Blood 141 mg/dL (60-115)
--- NOTE | 2025-02-12 17:10 | HO.PM.IMPN ---
Subjective Subjective Date of Service: 02/12/25 Interval History: Pt more awake and alert this morning Reports abdominal and groin pain better while at rest No acute events overnight No repeat fevers Review of Systems Review of Systems: Yes all other systems are reviewed and are negative Physical Exam Exam: Exam: General: AOx3, no acute distress Resp: CTA bilaterally CVS: Irregularly irregular rhythm GI/: +BS, diffuse lower abdominal tenderness. Abdomen and scrotum with erythema, multiple superficial ulcerations, obese; see previous progress note for pictures Skin: Warm, dry Neuro: Cranial nerves II-XII grossly intact bilaterally. Motor grossly intact bilaterally Extremities: Significant bilateral chronic venous stasis; see previous progress note for pictures Psych: Appropriate affect Vital Signs: Vital Signs: Last Vital Signs Temp 97.1 F 02/12/25 15:29 Pulse 74 02/12/25 15:29 Resp 16 02/12/25 15:29 BP 137/65 02/12/25 15:29 Pulse Ox 95 02/12/25 15:29 O2 Del Method Room Air 02/12/25 15:29 O2 Flow Rate 2 02/11/25 06:33 FiO2 50 02/10/25 18:48 BMI result Body Mass Index 49.9 Objective Data Active Medications Acetaminophen (Acetaminophen 325 Mg Tablet) 650 mg PO Q6H PRN PRN Reason: Pain, Mild 1-3,fever,headache Last Admin: 02/11/25 08:32 Dose: 650 mg Documented By: MAYELA Albuterol/Ipratropium (Albuterol/Iprat 2.5/0.5mg 3 Ml Ampul.Neb) 3 ml INHALE Q4H PRN PRN Reason: Shortness of Breath/Wheezing Apixaban (Apixaban 5 Mg Tablet) 5 mg PO BID [facility] Last Admin: 02/12/25 08:20 Dose: 5 mg Documented By: NIECY Atorvastatin Calcium (Atorvastatin Calcium 80 Mg Tablet) 80 mg PO DAILY [facility] Last Admin: 02/12/25 08:20 Dose: 80 mg Documented By: NIECY Benzonatate (Benzonatate 100 Mg Capsule) 100 mg PO TID PRN PRN Reason: Cough Calcium Carbonate (Calcium Carbonate 750 Mg Tab.Chew) 750 mg PO Q4H PRN PRN Reason: Heartburn Dextrose (Dextrose 50 % 25 Gm/50 Ml Syringe) 25 gm IVPUSH Q15M PRN; Protocol PRN Reason: per Hypoglycemia Standing Ord. Docusate Sodium (Docusate Sodium 100 Mg/10 Ml Liquid) 50 mg PO Q6H PRN PRN Reason: WITH OXYCODONE Empagliflozin (Empagliflozin 25 Mg Tablet) 25 mg PO DAILY [facility] Last Admin: 02/12/25 08:20 Dose: 25 mg Documented By: NIECY Escitalopram Oxalate (Escitalopram Oxalate 10 Mg Tablet) 10 mg PO DAILY [facility] Last Admin: 02/12/25 08:20 Dose: 10 mg Documented By: NIECY Famotidine (Famotidine 20 Mg Tablet) 20 mg PO BID [facility] Last Admin: 02/12/25 08:20 Dose: 20 mg Documented By: NIECY Fluticasone/Umeclidinium/Vilanterol (Fluticasone/Umeclidinium/Vilanterol 100/62.5/25 Blst.W.Dev) 1 puff INHALE RDAILY [facility] Last Admin: 02/12/25 07:14 Dose: 1 puff Documented By: TRENA Gabapentin (Gabapentin 600 Mg Tablet) 600 mg PO BID [facility] Last Admin: 02/12/25 08:20 Dose: 600 mg Documented By: NIECY Glucose (Glucose Gel 15 Gm Gel..Gram.) 15 gm PO Q15M PRN; Protocol PRN Reason: per Hypoglycemia Standing Ord. Hydroxyzine HCl (Hydroxyzine Hcl 25 Mg Tablet) 25 mg PO TID PRN PRN Reason: itch Last Admin: 02/12/25 08:20 Dose: 25 mg Documented By: NIECY Piperacillin Sod/Tazobactam (Sod 3.375 gm/ Sodium Chloride) 50 mls @ 100 mls/hr IV 0000,0600,1200,1800 [facility] Last Admin: 02/12/25 17:02 Dose: 100 mls/hr Documented By: NIECY Vancomycin HCl 750 mg/ Sodium (Chloride) 265 mls @ 265 mls/hr IV Q12H [facility] Last Infusion: 02/12/25 10:50 Dose: Infused Documented By: NIECY Insulin Human Lispro (Insulin Lispro 100 Unit/Ml 3 Ml Vial) 0 unit SUBCUT QIDACHS [facility]; Protocol Last Admin: 02/12/25 16:20 Dose: Not Given Documented By: NIECY Non-Admin Reason: No Insulin Coverage Losartan Potassium (Losartan Potassium 50 Mg Tablet) 50 mg PO DAILY [facility]; Protocol Last Admin: 02/12/25 08:20 Dose: 50 mg Documented By: NIECY Magnesium Hydroxide (Milk Of Magnesia 30 Ml Oral.Susp) 30 ml PO DAILY PRN PRN Reason: Constipation Melatonin (Melatonin 3 Mg Tablet) 6 mg PO BEDTIME PRN PRN Reason: Insomnia Metoprolol Succinate (Metoprolol Succinate Er 50 Mg Tab.Er.24h) 50 mg PO DAILY [facility]; Protocol Last Admin: 02/12/25 08:19 Dose: 50 mg Documented By: NIECY Oxycodone HCl (Oxycodone Hcl Immed Release 5 Mg Tablet) 10 mg PO Q6H PRN PRN Reason: Breakthrough Pain Last Admin: 02/12/25 02:25 Dose: 10 mg Documented By: YUDITH Pharmacy Consult (Consult Rx Vancomycin Dosing) 1 each MISCELLANE DAILY PRN PRN Reason: Consult order Polyethylene Glycol (Polyethylene Glycol 3350 17 Gm Powd.Pack) 17 gm PO DAILY PRN PRN Reason: Constipation Sodium Chloride (0.9 % Sodium Chloride Flush 3 Ml Syringe) 3 ml IVFLUSH QSOKFT [facility] Last Admin: 02/12/25 17:03 Dose: 3 ml Documented By: NIECY Tamsulosin HCl (Tamsulosin Hcl 0.4 Mg Capsule) 0.4 mg PO BEDTIME [facility] Last Admin: 02/11/25 20:18 Dose: 0.4 mg Documented By: YUDITH Vitamin D (Cholecalciferol (Vitamin D3) 25 Mcg Tablet) 25 mcg PO DAILY [facility] Last Admin: 02/12/25 08:20 Dose: 25 mcg Documented By: NIECY Labs 02/12/25 06:55 02/12/25 06:55 Labs: Laboratory Results - last 24 hr 02/11/25 02/12/25 02/12/25 20:46 06:55 07:02 MCV 87.7 MCH 27.7 MCHC 31.6 RDW 16.0 Plt Count 212 MPV 10.8 Absolute Nucleated RBC 0.000 Nucleated RBC % (auto) 0.0 Hold Purple Top SEE NOTE Anion Gap 15 Estim Creat Clear Calc 80.0 Estimated GFR > 60 POC Glucose 180 H 165 H Random Glucose 149 H Calcium 8.7 Total Bilirubin 1.0 AST 20 ALT < 6 Alkaline Phosphatase 100 Total Protein 6.9 Albumin 3.3 L Random Vancomycin 15.9 02/12/25 02/12/25 11:21 16:13 MCV MCH MCHC RDW Plt Count MPV Absolute Nucleated RBC Nucleated RBC % (auto) Hold Purple Top Anion Gap Estim Creat Clear Calc Estimated GFR POC Glucose 160 H 141 H Random Glucose Calcium Total Bilirubin AST ALT Alkaline Phosphatase Total Protein Albumin Random Vancomycin Microbiology Microbiology Results: Microbiology 02/10/25 18:30 Blood Culture - Preliminary Blood - Venous No growth after 24 hours. 02/10/25 18:23 Blood Culture - Preliminary Blood - Venous No growth after 24 hours. Assessment and Plan (1) Sepsis: Status: Acute (2) Cellulitis: Status: Acute Plan 80-year-old male with a past medical history of history, HLD, CHF, AFib on Eliquis, neuropathy, diabetes, COPD, history of cauda equina compression, obesity, spinal stenosis, mostly wheelchair-bound; presented to the hospital today with a chief complaint of shortness of breath, lethargy/altered mental status. Admitted for following Acute metabolic encephalopathy in the setting of abdominal wall cellulitis with severe sepsis Pt lethargic and obtunded at home, somnolent in the ED; currently mentating better and likely getting back to baseline Pelvis CT with findings suggestive of cellulitis in lower abdomen extending to perineum; no soft tissue gas or measurable fluid collection Met sepsis criteria with fever, tachycardia, tachypnea, leukocytosis; severe features requiring BiPAP/CPAP and initial lactic acid 3.8 Continue vanc and Zosyn, started 02/10 ID consulted, recommend trending WBC and if increases consult General surgery WBCs today trending lower Follow blood cultures PT/OT when ready for discharge. Chronic AFib with new atrial flutter EKG showing new atrial flutter Cardiology consulted, continue home dose of metoprolol Continue home Eliquis Acute on chronic CHF Chest x-ray showed mild congestion; noted elevated proBNP Patient initially not given Lasix due to sepsis Cardiology consulted, will give empiric Lasix 40mg IV daily as BP allows BP has been soft overall, will hold on IV diuretics for now Daily weights and I's and os. Elevated troponins Chronically elevated Initial troponin 49.5 with repeat 60.9 Likely type 2 in the setting of increased demand Monitor on telemetry Insulin-dependent type 2 Diabetes Insulin sliding scale, Lantus Diabetic diet COPD: Stable. DuoNebs p.r.n. Lactic acidosis: Patient was given gentle IV fluids in the ER. Improving. DVT prophylaxis: Patient on Eliquis Code status: DNR/DNI, confirmed with the patient's Pt requires continued hospitalization for need for continued IV antibiotics due to abdominal wall and perineal cellulitis with severe sepsis. Pt is improving but still has extensive cellulitis on his abdomen and requires additional IV antibiotics to ensure resolution of symptoms. Quality Stroke Does the patient have a stroke diagnosis?: No VTE Prior VTE?: No VTE Risk Level:: Medical - moderate - high VTE Device Contraindication: Treatment Not Indicated VTE Drug Contraindication: N/A - Med Ordered
[2025-02-12 19:41] LABS: Glucose, Whole Blood 198 mg/dL (60-115)
[2025-02-13] VITALS (7 sets, daily range): BP systolic 130–185; BP diastolic 63–102; PULSE 81–113; RESP 17–20; TEMP 36.4–36.8; O2SAT 90–96
--- NOTE | 2025-02-13 07:25 | HO.PM.IMPN ---
Subjective Subjective Date of Service: 02/13/25 Interval History: We will continue IV antibiotics , thankfully leukocytosis downtrending Patient very deconditioned We will reach out to ID as thus far sepsis workup has been unremarkable, we will likely transition to p.o. if continues to improve Patient very eager to go home Physical Exam Exam: Exam: General: AOx3, no acute distress Resp: CTA bilaterally CVS: Irregularly irregular rhythm GI/: +BS, diffuse lower abdominal tenderness. Abdomen and scrotum with erythema, multiple superficial ulcerations, obese; see previous progress note for pictures Skin: Warm, dry Neuro: Cranial nerves II-XII grossly intact bilaterally. Motor grossly intact bilaterally Vital Signs: Vital Signs: Last Vital Signs Temp 98.2 F 02/13/25 03:22 Pulse 110 H 02/13/25 03:22 Resp 19 02/13/25 03:22 BP 167/85 H 02/13/25 03:22 Pulse Ox 96 02/13/25 03:22 O2 Del Method Room Air 02/13/25 03:22 O2 Flow Rate 2 02/11/25 06:33 FiO2 50 02/10/25 18:48 BMI result Body Mass Index 49.9 Objective Data Active Medications Acetaminophen (Acetaminophen 325 Mg Tablet) 650 mg PO Q6H PRN PRN Reason: Pain, Mild 1-3,fever,headache Last Admin: 02/11/25 08:32 Dose: 650 mg Documented By: MAYELA Albuterol/Ipratropium (Albuterol/Iprat 2.5/0.5mg 3 Ml Ampul.Neb) 3 ml INHALE Q4H PRN PRN Reason: Shortness of Breath/Wheezing Apixaban (Apixaban 5 Mg Tablet) 5 mg PO BID [facility] Last Admin: 02/12/25 21:26 Dose: 5 mg Documented By: HUA Atorvastatin Calcium (Atorvastatin Calcium 80 Mg Tablet) 80 mg PO DAILY [facility] Last Admin: 02/12/25 08:20 Dose: 80 mg Documented By: NIECY Benzonatate (Benzonatate 100 Mg Capsule) 100 mg PO TID PRN PRN Reason: Cough Calcium Carbonate (Calcium Carbonate 750 Mg Tab.Chew) 750 mg PO Q4H PRN PRN Reason: Heartburn Dextrose (Dextrose 50 % 25 Gm/50 Ml Syringe) 25 gm IVPUSH Q15M PRN; Protocol PRN Reason: per Hypoglycemia Standing Ord. Docusate Sodium (Docusate Sodium 100 Mg/10 Ml Liquid) 50 mg PO Q6H PRN PRN Reason: WITH OXYCODONE Empagliflozin (Empagliflozin 25 Mg Tablet) 25 mg PO DAILY [facility] Last Admin: 02/12/25 08:20 Dose: 25 mg Documented By: NIECY Escitalopram Oxalate (Escitalopram Oxalate 10 Mg Tablet) 10 mg PO DAILY [facility] Last Admin: 02/12/25 08:20 Dose: 10 mg Documented By: NIECY Famotidine (Famotidine 20 Mg Tablet) 20 mg PO BID [facility] Last Admin: 02/12/25 21:26 Dose: 20 mg Documented By: HUA Fluticasone/Umeclidinium/Vilanterol (Fluticasone/Umeclidinium/Vilanterol 100/62.5/ Blst.W.Dev) 1 puff INHALE RDAILY [facility] Last Admin: 02/12/25 07:14 Dose: 1 puff Documented By: TRENA Gabapentin (Gabapentin 600 Mg Tablet) 600 mg PO BID [facility] Last Admin: 02/12/25 21:26 Dose: 600 mg Documented By: HUA Glucose (Glucose Gel 15 Gm Gel..Gram.) 15 gm PO Q15M PRN; Protocol PRN Reason: per Hypoglycemia Standing Ord. Hydroxyzine HCl (Hydroxyzine Hcl 25 Mg Tablet) 25 mg PO TID PRN PRN Reason: itch Last Admin: 02/12/25 08:20 Dose: 25 mg Documented By: NIECY Piperacillin Sod/Tazobactam (Sod 3.375 gm/ Sodium Chloride) 50 mls @ 100 mls/hr IV 0000,0600,1200,1800 [facility] Last Infusion: 02/13/25 06:10 Dose: Infused Documented By: HUA Vancomycin HCl 750 mg/ Sodium (Chloride) 265 mls @ 265 mls/hr IV Q12H [facility] Last Infusion: 02/12/25 22:25 Dose: Infused Documented By: HUA Insulin Human Lispro (Insulin Lispro 100 Unit/Ml 3 Ml Vial) 0 unit SUBCUT QIDACHS [facility]; Protocol Last Admin: 02/12/25 21:26 Dose: 2 unit Documented By: HUA Losartan Potassium (Losartan Potassium 50 Mg Tablet) 50 mg PO DAILY [facility]; Protocol Last Admin: 02/12/25 08:20 Dose: 50 mg Documented By: NIECY Magnesium Hydroxide (Milk Of Magnesia 30 Ml Oral.Susp) 30 ml PO DAILY PRN PRN Reason: Constipation Melatonin (Melatonin 3 Mg Tablet) 6 mg PO BEDTIME PRN PRN Reason: Insomnia Metoprolol Succinate (Metoprolol Succinate Er 50 Mg Tab.Er.24h) 50 mg PO DAILY [facility]; Protocol Last Admin: 02/12/25 08:19 Dose: 50 mg Documented By: NIECY Oxycodone HCl (Oxycodone Hcl Immed Release 5 Mg Tablet) 10 mg PO Q6H PRN PRN Reason: Breakthrough Pain Last Admin: 02/12/25 02:25 Dose: 10 mg Documented By: YUDITH Pharmacy Consult (Consult Rx Vancomycin Dosing) 1 each MISCELLANE DAILY PRN PRN Reason: Consult order Polyethylene Glycol (Polyethylene Glycol 3350 17 Gm Powd.Pack) 17 gm PO DAILY PRN PRN Reason: Constipation Sodium Chloride (0.9 % Sodium Chloride Flush 3 Ml Syringe) 3 ml IVFLUSH QSHIFT [facility] Last Admin: 02/12/25 21:26 Dose: 3 ml Documented By: HUA Tamsulosin HCl (Tamsulosin Hcl 0.4 Mg Capsule) 0.4 mg PO BEDTIME [facility] Last Admin: 02/12/25 21:26 Dose: 0.4 mg Documented By: HUA Vitamin D (Cholecalciferol (Vitamin D3) 25 Mcg Tablet) 25 mcg PO DAILY [facility] Last Admin: 02/12/25 08:20 Dose: 25 mcg Documented By: NIECY Labs 02/13/25 06:43 02/13/25 06:43 Labs: Laboratory Results - last 24 hr 02/12/25 02/12/25 02/12/25 06:55 11:21 16:13 MCV 87.7 MCH 27.7 MCHC 31.6 RDW 16.0 Plt Count 212 MPV 10.8 Absolute Nucleated RBC 0.000 Nucleated RBC % (auto) 0.0 Hold Purple Top SEE NOTE Anion Gap 15 Estim Creat Clear Calc 80.0 Estimated GFR > 60 POC Glucose 160 H 141 H Random Glucose 149 H Calcium 8.7 Total Bilirubin 1.0 AST 20 ALT < 6 Alkaline Phosphatase 100 Total Protein 6.9 Albumin 3.3 L Random Vancomycin 15.9 02/12/25 19:38 MCV MCH MCHC RDW Plt Count MPV Absolute Nucleated RBC Nucleated RBC % (auto) Hold Purple Top Anion Gap Estim Creat Clear Calc Estimated GFR POC Glucose 198 H Random Glucose Calcium Total Bilirubin AST ALT Alkaline Phosphatase Total Protein Albumin Random Vancomycin Microbiology Microbiology Results: Microbiology 02/10/25 18:23 Blood Culture - Preliminary Blood - Venous No growth after 48 hours. 02/10/25 18:30 Blood Culture - Preliminary Blood - Venous No growth after 48 hours. Assessment and Plan (1) Sepsis: Status: Acute (2) Cellulitis: Status: Acute Plan 80-year-old male with a past medical history of history, HLD, CHF, AFib on Eliquis, neuropathy, diabetes, COPD, history of cauda equina compression, obesity, spinal stenosis, mostly wheelchair-bound; presented to the hospital today with a chief complaint of shortness of breath, lethargy/altered mental status. Admitted for following Acute metabolic encephalopathy in the setting of abdominal wall cellulitis with severe sepsis Pt lethargic and obtunded at home, somnolent in the ED; currently mentating better and likely getting back to baseline Pelvis CT with findings suggestive of cellulitis in lower abdomen extending to perineum; no soft tissue gas or measurable fluid collection Met sepsis criteria with fever, tachycardia, tachypnea, leukocytosis; severe features requiring BiPAP/CPAP and initial lactic acid 3.8 ID consulted, recommend trending WBC and if increases consult General surgery WBCs downtrending- Switch vanc and Zosyn to Keflex p.o. Follow blood cultures-NTD PT/OT when ready for discharge. Chronic AFib with new atrial flutter EKG showing new atrial flutter Cardiology consulted, continue home dose of metoprolol Continue home Eliquis Acute on chronic HFpEF AFib on Eliquis Likely in the setting of sepsis Resume home diuretics eplerenone Chest x-ray showed mild congestion; noted elevated proBNP Continue Eliquis Type 2 troponinemia Elevated troponins Chronically elevated Initial troponin 49.5 with repeat 60.9 Likely type 2 in the setting of increased demand Monitor on telemetry Insulin-dependent type 2 Diabetes Insulin sliding scale, Lantus Diabetic diet COPD: Stable. DuoNebs p.r.n. Lactic acidosis: Patient was given gentle IV fluids in the ER. Resolved DVT prophylaxis: Patient on Eliquis resumed Code status: DNR/DNI, confirmed with the patient's Patient has been switched to p.o. antibiotics, we will need to check the response, and if he continues to improve on p.o. antibiotics and able to tolerate resumption of diuretics, can be DC tomorrow Home with VNA per PT eval Quality Stroke Does the patient have a stroke diagnosis?: No VTE Prior VTE?: No VTE Risk Level:: Medical - moderate - high VTE Device Contraindication: Treatment Not Indicated VTE Drug Contraindication: N/A - Med Ordered
[2025-02-13 07:28] LABS: Hematocrit 45.3 % (42.0-52.0); Hemoglobin 14.5 g/dl (14.0-18.0); Mean Corpuscular HGB Conc 32.0 g/dl (31.0-36.0); Mean Corpuscular Hemoglobin 27.4 pg (27.0-33.0); Mean Corpuscular Volume 85.5 fL (80.0-98.0); NRBC Abs Auto 0.000 X10*3/uL (0.0-0.012); NRBC Pct Auto 0.0 /100WBC (0.0-0.2); Platelet Count 222 X10*3/uL (160-400); Red Blood Count 5.30 X10*6/uL (4.60-5.80); White Blood Count 10.4 X10*3/uL (4.8-10.8)
[2025-02-13 07:29] LABS: Glucose, Whole Blood 167 mg/dL (60-115)
[2025-02-13 07:50] LABS: Anion Gap 16 (12-20); Blood Urea Nitrogen 18 mg/dL (9-16); Calcium 8.6 mg/dL (8.4-10.2); Carbon Dioxide 23 mmol/L (22-29); Chloride 103 mmol/L (96-108); Creatinine Clr Calc Pharmacy 88.6; Estimated Glomerular Filt Rate > 60; Potassium 3.7 mmol/L (3.3-5.1); Sodium 138 mmol/L (135-145)
[2025-02-13] MEDS: 0.9 % Sodium Chloride Flush 3 ML SYRINGE IVFLUSH ×3 (07:59→21:39)
[2025-02-13] MEDS: Metoprolol Succinate ER 50 MG TAB.ER.24H PO (08:06)
[2025-02-13] MEDS: Fluticasone/Umeclidinium/Vilanterol 100/62.5/25 BLST.W.DEV 1 PUFF INHALE (08:42)
[2025-02-13 11:16] LABS: Glucose, Whole Blood 161 mg/dL (60-115)
--- NOTE | 2025-02-13 12:12 | HO.WOUND ---
Wound Consult: Initial 80 yr old male admitted to [facility] on 02/11/25- See progress notes and H&P for detailed history. Wound consult placed for pannus/scrotum. Patient agreeable to assessment and photo documentation. Patient with large pendulous pannus, appears improved from previous photo. edema and redness noted without any open areas. Abdominal folds, breast folds, and groin with red, fungal appearing rash. Scrotum red without open wounds. reports taking care of him at home with assistance from visiting nurses, he has also used the outpatient wound care center. Pannus/abdomen Etiology: Cellulitis- improving- intertriginous dermatitis to folds Wound Bed: abdominal, breast, and groin folds with moist red skin, fungal appearing Drainage / Odor: none Edges: ? sattelite lesions Lisset wound: ? No Induration, Fluctuance or Warmth noted Pain: yes Goals of Treatment: ? antigunal powder to all - interdry to abdomen and breasts for moisture wicking- triad paste to groin and scrotum for moisture barrier Bilateral legs with history of venous ulcers - no open wounds noted today- thick dry and scaly skin noted- recommend lac-hydrin lotion Recommendations: 1. Turn and Reposition every 2 hours and as needed for patient comfort. Use pillows or wedges to support off loading positions. 2. Off Load all bony prominences with use of pillows and heel boots if needed. Apply Preventative foams where needed. 3. Monitor for incontinence and moisture control, use barrier creams when needed for prevention and treatment. 4. Provide adequate and supplemental nutrition. 5. Order or Continue low air loss mattress. 6. When applicable maintain blood glucose levels per Providers order. Skin folds: assess all skin folds daily. routine gentle cleansing of skin folds, avoid scrubbing, pat area dry. avoid placing products in skin folds that hold moisture against the skin. apply antifungal medication per provider orders, use only a light dusting to prevent caking. insert interdry ag into skin folds leaving 2-3 exposed to promote moisture wicking and evaporation. Scrotum/groin: gentle routine hygiene and incontinence care with pH balanced cleanser and bath wipes. antifungal medication per provider orders: apply a light dusting to prevent caking. apply triad paste BID and PRN. use disposable pads underneath patient when in chair or bed. use proactive toileting to promote continence. Bilateral legs: cleanse with partha spray, pat dry, apply ammonium lactate lotion daily Re-consult wound care Nurse for wound deterioration or wound changes.
--- NOTE | 2025-02-13 14:07 | MHC.CM.PN ---
Per verbal conversation with PT, PT is recommending STR and Patient/ have requested a referral to [facility].
[2025-02-13 16:42] LABS: Glucose, Whole Blood 180 mg/dL (60-115)
[2025-02-13 20:04] LABS: Glucose, Whole Blood 191 mg/dL (60-115)
[2025-02-13] MEDS: Triamcinolone Acet 0.1 % Cream 15 GM TUBE 1 APPL TOPICAL (21:39)
[2025-02-14] VITALS (8 sets, daily range): BP systolic 132–184; BP diastolic 50–99; PULSE 57–91; RESP 16–20; TEMP 36–36.8; O2SAT 92–95
[2025-02-14] MEDS: oxyCODONE HCl Immed Release 5 MG TABLET 10 MG PO (03:01)
[2025-02-14] MEDS: Fluticasone/Umeclidinium/Vilanterol 100/62.5/25 BLST.W.DEV 1 PUFF INHALE (07:29)
[2025-02-14 07:31] LABS: Glucose, Whole Blood 166 mg/dL (60-115)
[2025-02-14 07:39] LABS: Hematocrit 45.3 % (42.0-52.0); Hemoglobin 14.7 g/dl (14.0-18.0); Mean Corpuscular HGB Conc 32.5 g/dl (31.0-36.0); Mean Corpuscular Hemoglobin 27.9 pg (27.0-33.0); Mean Corpuscular Volume 86.1 fL (80.0-98.0); NRBC Abs Auto 0.000 X10*3/uL (0.0-0.012); NRBC Pct Auto 0.0 /100WBC (0.0-0.2); Platelet Count 217 X10*3/uL (160-400); Red Blood Count 5.26 X10*6/uL (4.60-5.80); White Blood Count 10.1 X10*3/uL (4.8-10.8)
[2025-02-14] MEDS: Metoprolol Succinate ER 50 MG TAB.ER.24H PO (07:40)
[2025-02-14] MEDS: Triamcinolone Acet 0.1 % Cream 15 GM TUBE 1 APPL TOPICAL ×2 (07:41→20:39)
[2025-02-14] MEDS: 0.9 % Sodium Chloride Flush 3 ML SYRINGE IVFLUSH ×2 (07:41→17:20)
[2025-02-14 08:02] LABS: Anion Gap 11 (12-20); Blood Urea Nitrogen 14 mg/dL (9-16); Calcium 8.3 mg/dL (8.4-10.2); Carbon Dioxide 24 mmol/L (22-29); Chloride 107 mmol/L (96-108); Creatinine Clr Calc Pharmacy 104.3; Estimated Glomerular Filt Rate > 60; Potassium 3.7 mmol/L (3.3-5.1); Sodium 138 mmol/L (135-145)
[2025-02-14 11:00] LABS: Glucose, Whole Blood 158 mg/dL (60-115)
--- NOTE | 2025-02-14 12:10 | P.CDIM_ITS ---
PROVIDER RESPONSE TEXT: To clarify, the appropriate diagnosis supported by the clinical indicators: Type 2 CT QUERY TEXT: PHYSICIAN'S DOCUMENTATION REQUEST Date of Query: 02/14/2025 07:30 AM EST Patient Name: Sam Meier Admit Date: 02/11/2025 Dear Linda Phillips MD, A review of the medical record indicates additional documentation may be needed. Please review below and update the documentation accordingly. Clinical Indicators: Progress note 02/13/25 - Elevated troponins Chronically elevated Initial troponin 49.5 with repeat 60.9 Likely Type 2 in the setting of increased demand Monitor on telemetry. Please clarify any further specifics to the information above if possible? Type 2 CT Other diagnosis pertaining to the elevated troponins please specify Other (explain) Clinically unable to determine (explain) Thank you, Alida Mar, CCS, CDIS Use of terms such as suspected, likely, concern for, or probable (associated with a specific diagnosis that is being evaluated, monitored, or treated as if it exists) are acceptable and can be coded in the inpatient setting, when documented at the time of discharge. Please use your independent medical judgment in providing your response. THIS QUERY IS PART OF THE PERMANENT MEDICAL RECORD
--- NOTE | 2025-02-14 12:10 | P.CDIM_ITS ---
PROVIDER RESPONSE TEXT: To clarify, the appropriate diagnosis supported by the clinical indicators: Acute QUERY TEXT: PHYSICIAN'S DOCUMENTATION REQUEST Date of Query: 02/14/2025 07:33 AM EST Patient Name: Sam Meier Admit Date: 02/11/2025 Dear Linda Phillips MD, A review of the medical record indicates additional documentation may be needed. Please review below and update the documentation accordingly. Clinical Indicators: H&P 02/11/25 - Noted lactic acidosis. Progress notes: Lactic acidosis - Patient was given IV fluids in the Ed. Improving. Clarify which of the following accurately represents the acuity of the Lactic acidosis: Possible options might include: Acute Chronic Other (explain) Clinically unable to determine (explain) Thank you, Alida Mar, CCS, CDIS Use of terms such as suspected, likely, concern for, or probable (associated with a specific diagnosis that is being evaluated, monitored, or treated as if it exists) are acceptable and can be coded in the inpatient setting, when documented at the time of discharge. Please use your independent medical judgment in providing your response. THIS QUERY IS PART OF THE PERMANENT MEDICAL RECORD
--- NOTE | 2025-02-14 13:51 | P.PNID_ITS ---
Subjective Subjective Date of Service: 02/14/25 Critical Care Time (minutes): 15 Comment: He has improvement pannus He has no fever or elevated WBC,now 10 Objective Data Labs 02/14/25 06:49 02/14/25 06:49 Labs: Laboratory Results - last 24 hr 02/13/25 02/13/25 02/14/25 15:49 19:57 06:49 WBC 10.1 RBC 5.26 Hgb 14.7 Hct 45.3 MCV 86.1 MCH 27.9 MCHC 32.5 RDW 15.6 Plt Count 217 MPV 10.5 Absolute Nucleated RBC 0.000 Nucleated RBC % (auto) 0.0 Sodium 138 Potassium 3.7 Chloride 107 Carbon Dioxide 24 Anion Gap 11 L BUN 14 Creatinine 0.79 Estim Creat Clear Calc 104.3 Estimated GFR > 60 POC Glucose 180 H 191 H Random Glucose 162 H Calcium 8.3 L 02/14/25 02/14/25 07:25 10:55 WBC RBC Hgb Hct MCV MCH MCHC RDW Plt Count MPV Absolute Nucleated RBC Nucleated RBC % (auto) Sodium Potassium Chloride Carbon Dioxide Anion Gap BUN Creatinine Estim Creat Clear Calc Estimated GFR POC Glucose 166 H 158 H Random Glucose Calcium Microbiology Microbiology Results: Microbiology 02/10/25 18:23 Blood - Venous Blood Culture - Preliminary No growth after 48 hours. 02/10/25 18:30 Blood - Venous Blood Culture - Preliminary No growth after 48 hours. Physical Exam 2 Vital Signs: Vital Signs: Last Vital Signs Temp 97.7 F 02/14/25 11:27 Pulse 57 02/14/25 11:27 Resp 16 02/14/25 11:27 BP 139/67 02/14/25 11:27 Pulse Ox 93 02/14/25 11:27 O2 Del Method Room Air 02/14/25 11:27 O2 Flow Rate 2 02/11/25 06:33 FiO2 50 02/10/25 18:48 BMI result Body Mass Index 49.9 Const: General: cooperative HEENT: Head: Yes normal to inspection Face and sinus: Yes normal facial exam Mouth: Normal oral and palatal mucosa present Teeth and gingiva: d entition normal Eyes: General: appearance normal, both eyes and all related structures P upils: Equal, round and reactive pupils present Resp: Effort & Inspection: normal respiratory effort Cardio: Rate: regular rate Rhythm: regular rhythm GI: Other: improving abdominal redness Palpation (GI): Soft to palpation and nontender : General: Yes no CVA tenderness Back/Spine/Pelvis: Back: no CVA tenderness Skin: General skin exam: no rashes or lesions noted Neuro: General: moves all extremities Cranial nerves: Yes Equal, round and reactive pupils present Extrem: General: Yes normal to inspection Psych: Appearance: grossly normal Assessment and Plan Assessment and plan (1) Bacteremia due to group B Streptococcus: Problem details: He is doing better and less redness area pannus Blood culture negative this admit,prior Group B strep Status: Acute Assessment and Plan: Po Keflex appropriate total 14 days antibiotics (2) Cellulitis: Status: Acute Time Spent With Patient Time: Total time managing care of this patient today ____ minutes.
--- NOTE | 2025-02-14 15:51 | MHC.CM.PN ---
Patient has been medically cleared for dc to home today, self care.
--- NOTE | 2025-02-14 15:54 | PM.DS ---
DS: Providers Provider Date of Service: 02/14/25 Date of admission: 02/11/25 00:30 Date of discharge: 02/14/25 Primary care physician: Unknown Physician Consults: 02/11/25 00:33 Consult to Infectious Diseases Routine Consulting Provider: [facility] Reason for consultation: cellulitis 02/11/25 00:43 Consult to Cardiology Routine Consulting Provider: [facility] Reason for consultation: chf 02/11/25 14:25 Consult to Wound Care Routine Consulting Provider: [facility] Reason for consultation: Scrotal and pannus infection/ulcerations; CVSD DS: Diagnosis Discharge Diagnosis (1) Bacteremia due to group B Streptococcus: Status: Acute (2) Cellulitis: Status: Acute DS: Summary Hospital Course Hospital Course: H&P: Chief Complaint: ams 80-year-old male with a past medical history of history, HLD, CHF, AFib on Eliquis, neuropathy, diabetes, COPD, history of cauda equina compression, obesity, spinal stenosis, mostly wheelchair-bound; presented to the hospital today with a chief complaint of shortness of breath, lethargy. Patient was doing fine but she suddenly became ill as per the patient's . Has been complaining of shortness of breath. Has had chronic ulcers on his legs. Because of his spinal stenosis is mostly wheelchair-bound but he is able to get up and walk with the help of his walker to the bathroom. For the past 1 day of shortness of breaths Reports patient has urinary frequency but unchanged from prior. Patient does not have chronic Marte. At the time of my interview patient is more alert but sleepy. Denies any pain. Review of all other systems is negative except mentioned above ER course: Per ER team, patient initially complained of shortness of breaths; has coarse breath sounds; concern for possible mild CHF exacerbation. Placed on supplemental oxygen. Patient blood pressure was stable. Patient also qualified for sepsis criteria. Febrile and has leukocytosis. Also noted lactic acidosis. Patient noted to have significant cellulitis of his abdominal wall fold extending into the groin and perineum. Less concern for for nurse PACS. CT abdomen pelvis was done which showed abdominal fold skin thickening. No gas. Given IV vancomycin and Zosyn. Marte catheter placed in the ER Hospital course: 80-year-old male with a past medical history of history, HLD, CHF, AFib on Eliquis, neuropathy, diabetes, COPD, history of cauda equina compression, obesity, spinal stenosis, mostly wheelchair-bound; presented to the hospital today with a chief complaint of shortness of breath, lethargy/altered mental status. Acute metabolic encephalopathy in the setting of abdominal wall cellulitis with severe sepsis The patient was admitted after being found lethargic and obtunded at home, presenting to the ED somnolent but subsequently improving to near baseline mental status during hospitalization. Workup revealed cellulitis of the lower abdomen extending to the perineum on pelvic CT, without evidence of soft tissue gas or fluid collection. The patient met sepsis criteria on admission, with fever, tachycardia, tachypnea, leukocytosis, and an elevated lactic acid of 3.8, requiring initial BiPAP/CPAP support. Management included IV vancomycin and piperacillin-tazobactam (Zosyn), with Infectious Disease consultation recommending trending WBC and surgical evaluation if WBC increased. Blood cultures remained negative, and the patient?s WBC count downtrended with clinical improvement. Antibiotics were transitioned to oral cephalexin (Keflex) as the patient stabilized, and no surgical intervention was required. The patient is being discharged on a 13-day course of oral Keflex, with a Marte catheter in place to rest the affected area; detailed instructions for catheter and wound care have been provided. PT/OT evaluation was completed with recommendations for safe mobility at home. The patient should monitor for fever, worsening redness or swelling, drainage, or changes in mental status, and follow all instructions for catheter care and antibiotic completion. Marte placed POA for adequate healing of the pannus-outpatient VNA voiding trials Lactic acidosis: Patient was given gentle IV fluids in the ER. Resolved Acute on chronic HFpEF AFib on Eliquis Likely in the setting of sepsis , continued home metoprolol and Eliquis and resumed eplerenone after a day with good effect. Resume home diuretics eplerenone Type 2 troponinemia Likely in the setting of type 2 ND, monitored on telemetry. Downtrended Insulin-dependent type 2 Diabetes Insulin sliding scale, Lantus while inpatient And Diabetic diet COPD: Stable. DuoNebs p.r.n. DVT prophylaxis: Eliquis resumed Code status: DNR/DNI, confirmed with the patient's Patient has 13 more days of oral Keflex Voiding trials outpatient with VNA Follow up with PCP within a week Thus far sepsis workup unremarkable but if it were positive we will ask the patient to come back to the ED Time spent discussing smoking cessation with patient: more than 10 minutes Status at Discharge Functional status at discharge: bed bound Overall status at discharge: patient is progressing back to baseline Time Attestation Discharge Coordination Time (in mins): 75 Quality: Safe Use of Opioids Does Pt have an Active Cancer Diagnosis on the Problem List?: No Quality: Stroke Does the patient have a stroke diagnosis?: No Physical Exam Vital Signs: Vital Signs: Last Vital Signs Temp 98.2 F 02/14/25 15:07 Pulse 84 02/14/25 15:07 Resp 20 02/14/25 15:07 BP 151/67 H 02/14/25 15:07 Pulse Ox 92 02/14/25 15:07 O2 Del Method Room Air 02/14/25 15:07 O2 Flow Rate 2 02/11/25 06:33 FiO2 50 02/10/25 18:48 BMI result Body Mass Index 49.9 DS: Data Data Completed and Pending Labs on day of discharge: Laboratory Results - last 24 hr 02/13/25 02/13/25 02/14/25 15:49 19:57 06:49 WBC 10.1 RBC 5.26 Hgb 14.7 Hct 45.3 MCV 86.1 MCH 27.9 MCHC 32.5 RDW 15.6 Plt Count 217 MPV 10.5 Absolute Nucleated RBC 0.000 Nucleated RBC % (auto) 0.0 Sodium 138 Potassium 3.7 Chloride 107 Carbon Dioxide 24 Anion Gap 11 L BUN 14 Creatinine 0.79 Estim Creat Clear Calc 104.3 Estimated GFR > 60 POC Glucose 180 H 191 H Random Glucose 162 H Calcium 8.3 L 02/14/25 02/14/25 07:25 10:55 WBC RBC Hgb Hct MCV MCH MCHC RDW Plt Count MPV Absolute Nucleated RBC Nucleated RBC % (auto) Sodium Potassium Chloride Carbon Dioxide Anion Gap BUN Creatinine Estim Creat Clear Calc Estimated GFR POC Glucose 166 H 158 H Random Glucose Calcium Preliminary micro results at discharge 02/10/25 18:23 Blood Culture - Preliminary Blood - Venous No growth after 48 hours. 02/10/25 18:30 Blood Culture - Preliminary Blood - Venous No growth after 48 hours. Discharge Plan Discharge Anticipated Discharge Date/Time: 02/14/25 15:45 Patient Disposition: Home, Self-Care Discharge Diagnosis: Panniculitis prior group B strep Referrals: Gail Blancas MD [Physician, Infectious Disease] - 1 Week Physician,Saroj J [Primary Care Provider, Medical] - 1 Week Discharge Medications: New cephalexin 500 mg Capsule 1,000 mg PO Q6H 13 Days Qty: 104 0RF Continued losartan 50 mg tablet 50 mg PO DAILY gabapentin 600 mg tablet 600 mg PO TID citalopram 20 mg tablet 20 mg PO DAILY nystatin 100,000 unit/gram powder 1 appl topical BID PRN (Reason: abdominal rash) eplerenone 50 mg tablet 50 mg PO DAILY oxycodone 10 mg tablet 10 mg PO Q6H PRN (Reason: Moderate Pain (Scale Score 5-6)) Eliquis 5 mg tablet 5 mg PO BID Humulin R U-500 (Conc) Kwikpen 500 unit/mL (3 mL) insulin pen 45 unit subcut DAILY@1730 Trelegy Ellipta 100-62.5-25 mcg blister with device 1 ea inhalation DAILY docusate sodium 50 mg Capsule 50 mg PO Q6H PRN (Reason: WITH OXYCODONE) Rx Instructions: With oxycodone cholecalciferol (vitamin D3) 25 mcg (1,000 unit) Tablet 25 mcg PO DAILY triamcinolone acetonide 0.1 % cream 1 appl topical BID metoprolol succinate 50 mg Tablet Extended Release 24 Hr 50 mg PO DAILY Qty: 90 0RF Protocol: Hold for SBP/HR < HOLD for SBP < : 90 HOLD for HR < : 60 famotidine 20 mg tablet 20 mg PO BID rosuvastatin 20 mg tablet 20 mg PO DAILY empagliflozin 25 mg Tablet 25 mg PO DAILY tamsulosin 0.4 mg capsule 0.4 mg PO BEDTIME polyethylene glycol 3350 [Miralax] 17 gram/dose Powder 17 g PO DAILY PRN (Reason: Constipation) hydroxyzine pamoate 25 mg capsule 25 mg PO TID PRN (Reason: itch) albuterol sulfate 90 mcg/actuation Aerosol Powdr Breath Activated 2 inh INHALATION Q6H PRN (Reason: Shortness Of Breath Or Wheezing) Humulin R U-500 (Conc) Kwikpen 500 unit/mL (3 mL) insulin pen 50 unit subcut DAILY@0900 Discharge Orders: Discharge Order (Routine); Ordered 12/09/25 Ordered By: Linda Phillips Diet: Low salt diet Activity on Discharge: Use cane or walker Stand Alone Forms: Patient Portal Discharge page Print Language: Guyanese Care Plan Goals: Diagnosis: Panniculitis (inflammation of the fat layer under the skin) Reason for Marte Catheter: A Marte catheter has been placed to allow the affected area to rest and heal by minimizing irritation and trauma. Wound and Skin Care: Keep the affected area clean and dry. Gently wash with mild soap and water; pat dry. If dressings are present, change them as instructed and monitor for signs of infection (increased redness, swelling, warmth, pus, or foul odor). Marte Catheter Care: Ensure the catheter tubing is not kinked or pulled. Keep the catheter and surrounding area clean. Wash the area around the catheter with soap and water daily. Always keep the drainage bag below the level of your bladder to prevent backflow. Empty the drainage bag when it is about two-thirds full or at least every 8 hours. Do not disconnect the catheter from the drainage bag unless instructed. Avoid pulling or tugging on the catheter. Signs to Watch For (Call Your Provider If): Fever >100.4?F (38?C) Worsening redness, swelling, or pain at the panniculitis site or around the catheter Pus or foul-smelling drainage from the wound or catheter site Cloudy, foul-smelling, or bloody urine Catheter stops draining urine New or spreading rash Difficulty moving the affected limb Any other concerning symptoms Medications: Take all prescribed medications as directed (e.g., antibiotics, anti-inflammatories, pain relievers). Do not stop medications early unless instructed. Activity: Rest the affected area as much as possible. Elevate the limb (if panniculitis is on an arm or leg) to reduce swelling. Avoid strenuous activity until cleared by your provider. Follow-Up: Keep your scheduled follow-up appointment for wound and catheter evaluation. Contact your provider with any questions or concerns. Additional Instructions: Maintain good hydration and nutrition to support healing. If you have an underlying condition contributing to panniculitis, continue to follow your treatment plan for that condition. Health Concerns: See above Plan of Treatment: See above Assessment: See above Patient Instructions: Marte Catheter Care, Cellulitis (ED)
--- NOTE | 2025-02-14 16:10 | P.F2F_ITS ---
Service Date Service Date: 02/14/25 Encounter Date of encounter: 02/14/25 Reasons for Services Signs and symptoms assessed: VNA services Reason for intermediate: diabetic teaching, monitoring of unstable blood sugar, medication management, medication treatment and teach disease management Reason for physical therapy: home safety and mobility, therapeutic exercises, restore joint function, gait/transfer training, assess need for DME, ADL training and energy conservation Reason for occupational therapy: home safety and mobility, therapeutic exercises, restore joint function, gait/transfer training, assess need for DME, ADL training and energy conservation Reason for speech therapy: swallowing impairment Homebound: Leaving the home is medically contraindicated at this time without the asist of a device and/or another person due th the listed conditions above and below. Reason homebound: unsteady gait / fall risk, fall risk related to blood pressure changes, leg weakness, bedbound/chairbound, pain with ambulation, poor balance / fall risk and weakness related to hospital stay Certification: Based on the above findings, I certify that this patient is confined to the home and needs intermittent intermediate care, physical therapy and/or speech therapy, or continues to need occupational therapy. The patient is under my care, and I have initiated the establishment of the plan of care. The patient will be followed by a physician who will periodically review the plan of care. Time Spent With Patient Time: Total time managing care of this patient today __45__ minutes.
--- NOTE | 2025-02-14 16:27 | MHC.CM.PN ---
Patient has been medically cleared for dc to home today, with services. Patient is active with [facility], who has been notified of today's dc. Patient will return home via [facility] at 5:30 PM. MD & RN are aware.
[2025-02-14 16:41] LABS: Glucose, Whole Blood 213 mg/dL (60-115)
--- NOTE | 2025-02-14 16:43 | MHC.CM.PN ---
JOSESITO and met with Patient and his /Katie; new goal is for STR. Referrals have been made to [facility] and [facility]. CM will follow.
--- NOTE | 2025-02-14 16:51 | HO.PM.IMPN ---
Subjective Subjective Date of Service: 02/14/25 Interval History: Patient doing better on p.o. antibiotics Looking for SNF placement (hence DC has been discontinued) Review of Systems Review of Systems: Yes Unobtainable due to mental condition and Unobtainable due to mental status Physical Exam Exam: Exam: General: AOx3, no acute distress Resp: CTA bilaterally CVS: Irregularly irregular rhythm GI/: +BS, diffuse lower abdominal tenderness. Abdomen and scrotum with erythema, multiple superficial ulcerations, obese; improving Skin: Warm, dry Vital Signs: Vital Signs: Last Vital Signs Temp 98.2 F 02/14/25 15:07 Pulse 84 02/14/25 15:07 Resp 20 02/14/25 15:07 BP 151/67 H 02/14/25 15:07 Pulse Ox 92 02/14/25 15:07 O2 Del Method Room Air 02/14/25 15:07 O2 Flow Rate 2 02/11/25 06:33 FiO2 50 02/10/25 18:48 BMI result Body Mass Index 49.9 Objective Data Active Medications Acetaminophen (Acetaminophen 325 Mg Tablet) 650 mg PO Q6H PRN PRN Reason: Pain, Mild 1-3,fever,headache Last Admin: 02/11/25 08:32 Dose: 650 mg Documented By: MAYELA Albuterol Sulfate (Albuterol Sulfate 90 Mcg 8 Gm Inhaler) 2 puff INHALE RQ6H PRN PRN Reason: Shortness Of Breath Or Wheezing Albuterol/Ipratropium (Albuterol/Iprat 2.5/0.5mg 3 Ml Ampul.Neb) 3 ml INHALE Q4H PRN PRN Reason: Shortness of Breath/Wheezing Apixaban (Apixaban 5 Mg Tablet) 5 mg PO BID [facility] Last Admin: 02/14/25 07:40 Dose: 5 mg Documented By: YOSEF Atorvastatin Calcium (Atorvastatin Calcium 80 Mg Tablet) 80 mg PO DAILY [facility] Last Admin: 02/14/25 07:39 Dose: 80 mg Documented By: YOSEF Benzonatate (Benzonatate 100 Mg Capsule) 100 mg PO TID PRN PRN Reason: Cough Calcium Carbonate (Calcium Carbonate 750 Mg Tab.Chew) 750 mg PO Q4H PRN PRN Reason: Heartburn Cephalexin HCl (Cephalexin 500 Mg Capsule) 1,000 mg PO Q6H [facility] Last Admin: 02/14/25 12:46 Dose: 1,000 mg Documented By: YOSEF Dextrose (Dextrose 50 % 25 Gm/50 Ml Syringe) 25 gm IVPUSH Q15M PRN; Protocol PRN Reason: per Hypoglycemia Standing Ord. Docusate Sodium (Docusate Sodium 100 Mg/10 Ml Liquid) 50 mg PO Q6H PRN PRN Reason: WITH OXYCODONE Escitalopram Oxalate (Escitalopram Oxalate 10 Mg Tablet) 10 mg PO DAILY [facility] Last Admin: 02/14/25 07:40 Dose: 10 mg Documented By: YOSEF Famotidine (Famotidine 20 Mg Tablet) 20 mg PO BID [facility] Last Admin: 02/14/25 07:40 Dose: 20 mg Documented By: YOSEF Fluticasone/Umeclidinium/Vilanterol (Fluticasone/Umeclidinium/Vilanterol 100/62.5/25 Blst.W.Dev) 1 puff INHALE RDAILY [facility] Last Admin: 02/14/25 07:29 Dose: 1 puff Documented By: CHUNG Gabapentin (Gabapentin 600 Mg Tablet) 600 mg PO TID [facility] Last Admin: 02/14/25 16:18 Dose: 600 mg Documented By: YOSEF Glucose (Glucose Gel 15 Gm Gel..Gram.) 15 gm PO Q15M PRN; Protocol PRN Reason: per Hypoglycemia Standing Ord. Hydroxyzine HCl (Hydroxyzine Hcl 25 Mg Tablet) 25 mg PO TID PRN PRN Reason: itch Last Admin: 02/12/25 08:20 Dose: 25 mg Documented By: NIECY Insulin Human Lispro (Insulin Lispro 100 Unit/Ml 3 Ml Vial) 0 unit SUBCUT QIDACHS [facility]; Protocol Last Admin: 02/14/25 12:46 Dose: 2 unit Documented By: YOSEF Losartan Potassium (Losartan Potassium 50 Mg Tablet) 50 mg PO DAILY [facility]; Protocol Last Admin: 02/14/25 07:39 Dose: 50 mg Documented By: YOSEF Magnesium Hydroxide (Milk Of Magnesia 30 Ml Oral.Susp) 30 ml PO DAILY PRN PRN Reason: Constipation Melatonin (Melatonin 3 Mg Tablet) 6 mg PO BEDTIME PRN PRN Reason: Insomnia Last Admin: 02/14/25 03:01 Dose: 6 mg Documented By: HUA Metoprolol Succinate (Metoprolol Succinate Er 50 Mg Tab.Er.24h) 50 mg PO DAILY [facility]; Protocol Last Admin: 02/14/25 07:40 Dose: 50 mg Documented By: YOSEF Non-Formulary Medication (Eplerenone) 50 mg PO DAILY [facility] Nystatin (Nystatin Ointment 15 Gm Tube) 1 appl TOPICAL TID JOSEFA; Protocol Last Admin: 02/14/25 16:18 Dose: 1 appl Documented By: YOSEF Oxycodone HCl (Oxycodone Hcl Immed Release 5 Mg Tablet) 10 mg PO Q6H PRN PRN Reason: Breakthrough Pain Last Admin: 02/14/25 03:01 Dose: 10 mg Documented By: HUA Polyethylene Glycol (Polyethylene Glycol 3350 17 Gm Powd.Pack) 17 gm PO DAILY PRN PRN Reason: Constipation Sodium Chloride (0.9 % Sodium Chloride Flush 3 Ml Syringe) 3 ml IVFLUSH QSHIFT [facility] Last Admin: 02/14/25 07:41 Dose: 3 ml Documented By: YOSEF Tamsulosin HCl (Tamsulosin Hcl 0.4 Mg Capsule) 0.4 mg PO BEDTIME JOSEFA Last Admin: 02/13/25 21:38 Dose: 0.4 mg Documented By: HUA Triamcinolone Acetonide (Triamcinolone Acet 0.1 % Cream 15 Gm Tube) 1 appl TOPICAL BID JOSEFA; Protocol Last Admin: 02/14/25 07:41 Dose: 1 appl Documented By: YOSEF Vitamin D (Cholecalciferol (Vitamin D3) 25 Mcg Tablet) 25 mcg PO DAILY JOSEFA Last Admin: 02/14/25 07:39 Dose: 25 mcg Documented By: YOSEF Labs 02/14/25 06:49 02/14/25 06:49 Labs: Laboratory Results - last 24 hr 02/13/25 02/14/25 02/14/25 19:57 06:49 07:25 MCV 86.1 MCH 27.9 MCHC 32.5 RDW 15.6 Plt Count 217 MPV 10.5 Absolute Nucleated RBC 0.000 Nucleated RBC % (auto) 0.0 Anion Gap 11 L Estim Creat Clear Calc 104.3 Estimated GFR > 60 POC Glucose 191 H 166 H Random Glucose 162 H Calcium 8.3 L 02/14/25 02/14/25 10:55 16:37 MCV MCH MCHC RDW Plt Count MPV Absolute Nucleated RBC Nucleated RBC % (auto) Anion Gap Estim Creat Clear Calc Estimated GFR POC Glucose 158 H 213 H Random Glucose Calcium Assessment and Plan (1) Sepsis: Status: Acute (2) Cellulitis: Status: Acute Plan 80-year-old male with a past medical history of history, HLD, CHF, AFib on Eliquis, neuropathy, diabetes, COPD, history of cauda equina compression, obesity, spinal stenosis, mostly wheelchair-bound; presented to the hospital today with a chief complaint of shortness of breath, lethargy/altered mental status. Admitted for following 80-year-old male with a past medical history of history, HLD, CHF, AFib on Eliquis, neuropathy, diabetes, COPD, history of cauda equina compression, obesity, spinal stenosis, mostly wheelchair-bound; presented to the hospital today with a chief complaint of shortness of breath, lethargy/altered mental status. Acute metabolic encephalopathy in the setting of abdominal wall cellulitis with severe sepsis The patient was admitted after being found lethargic and obtunded at home, presenting to the ED somnolent but subsequently improving to near baseline mental status during hospitalization. Workup revealed cellulitis of the lower abdomen extending to the perineum on pelvic CT, without evidence of soft tissue gas or fluid collection. The patient met sepsis criteria on admission, with fever, tachycardia, tachypnea, leukocytosis, and an elevated lactic acid of 3.8, requiring initial BiPAP/CPAP support. Management included IV vancomycin and piperacillin-tazobactam (Zosyn), with Infectious Disease consultation recommending trending WBC and surgical evaluation if WBC increased. Blood cultures remained negative, and the patient?s WBC count downtrended with clinical improvement. Antibiotics were transitioned to oral cephalexin (Keflex) as the patient stabilized, and no surgical intervention was required. Plan Continue Keflex day 2/ Continue Marte Wound care Marte placed POA for adequate healing of the pannus-outpatient [facility] voiding trials at the time of DC Lactic acidosis: Patient was given gentle IV fluids in the ER. Resolved Acute on chronic HFpEF AFib on Eliquis Likely in the setting of sepsis , continued home metoprolol and Eliquis and resumed eplerenone after a day with good effect. Resume home diuretics eplerenone Type 2 troponinemia Likely in the setting of type 2 [place], monitored on telemetry. Downtrended Insulin-dependent type 2 Diabetes Insulin sliding scale, Lantus while inpatient And Diabetic diet COPD: Stable. DuoNebs p.r.n. DVT prophylaxis: Eliquis resumed Code status: DNR/DNI, confirmed with the patient's Discharge fell through as the patient's stated she is unable to care for the patient at home, hence we will continue p.o. antibiotics and PT/OT Quality Stroke Does the patient have a stroke diagnosis?: No VTE Prior VTE?: No VTE Risk Level:: Medical - moderate - high VTE Device Contraindication: Treatment Not Indicated VTE Drug Contraindication: N/A - Med Ordered
--- NOTE | 2025-02-14 16:52 | PC.NURSE ---
pt would want her to be DC to STR, CM and MD came to discuss. Pt will stay tonight and CM will looj for a STR bed tomorrow. discharge order postponed
[2025-02-14 20:44] LABS: Glucose, Whole Blood 190 mg/dL (60-115)
[2025-02-15 04:00] VITALS: BP 178/78; PULSE 70; RESP 16; TEMP 36; O2SAT 93
--- NOTE | 2025-02-15 07:38 | P.PNIM_ITS ---
Subjective Subjective Date of Service: 02/15/25 Interval History: Cont to do better on p.o. antibiotics Looking for SNF placement Review of Systems Review of Systems: Yes Unobtainable due to mental condition and Unobtainable due to mental status Physical Exam 2 Exam: Exam: General: AOx3, no acute distress Resp: CTA bilaterally CVS: Irregularly irregular rhythm GI/: +BS, diffuse lower abdominal tenderness. Abdomen and scrotum with erythema, multiple superficial ulcerations, obese; improving : Marte draining clear yellow urine Vital Signs: Vital Signs: Last Vital Signs Temp 96.8 F 02/15/25 04:00 Pulse 70 02/15/25 04:00 Resp 16 02/15/25 04:00 BP 178/78 H 02/15/25 04:00 Pulse Ox 93 02/15/25 04:00 O2 Del Method Room Air 02/15/25 04:00 O2 Flow Rate 2 02/11/25 06:33 FiO2 50 02/10/25 18:48 BMI result Body Mass Index 49.9 Objective Data Active Medications Acetaminophen (Acetaminophen 325 Mg Tablet) 650 mg PO Q6H PRN PRN Reason: Pain, Mild 1-3,fever,headache Last Admin: 02/11/25 08:32 Dose: 650 mg Documented By: MAYELA Albuterol Sulfate (Albuterol Sulfate 90 Mcg 8 Gm Inhaler) 2 puff INHALE RQ6H PRN PRN Reason: Shortness Of Breath Or Wheezing Albuterol/Ipratropium (Albuterol/Iprat 2.5/0.5mg 3 Ml Ampul.Neb) 3 ml INHALE Q4H PRN PRN Reason: Shortness of Breath/Wheezing Apixaban (Apixaban 5 Mg Tablet) 5 mg PO BID [facility] Last Admin: 02/14/25 20:31 Dose: 5 mg Documented By: CHIN Atorvastatin Calcium (Atorvastatin Calcium 80 Mg Tablet) 80 mg PO DAILY [facility] Last Admin: 02/14/25 07:39 Dose: 80 mg Documented By: YOSEF Benzonatate (Benzonatate 100 Mg Capsule) 100 mg PO TID PRN PRN Reason: Cough Calcium Carbonate (Calcium Carbonate 750 Mg Tab.Chew) 750 mg PO Q4H PRN PRN Reason: Heartburn Cephalexin HCl (Cephalexin 500 Mg Capsule) 1,000 mg PO Q6H [facility] Last Admin: 02/15/25 06:09 Dose: 1,000 mg Documented By: CHIN Dextrose (Dextrose 50 % 25 Gm/50 Ml Syringe) 25 gm IVPUSH Q15M PRN; Protocol PRN Reason: per Hypoglycemia Standing Ord. Docusate Sodium (Docusate Sodium 100 Mg/10 Ml Liquid) 50 mg PO Q6H PRN PRN Reason: WITH OXYCODONE Escitalopram Oxalate (Escitalopram Oxalate 10 Mg Tablet) 10 mg PO DAILY [facility] Last Admin: 02/14/25 07:40 Dose: 10 mg Documented By: YOSEF Famotidine (Famotidine 20 Mg Tablet) 20 mg PO BID [facility] Last Admin: 02/14/25 20:31 Dose: 20 mg Documented By: CHIN Fluticasone/Umeclidinium/Vilanterol (Fluticasone/Umeclidinium/Vilanterol 100/62.5/25 Blst.W.Dev) 1 puff INHALE RDAILY [facility] Last Admin: 02/14/25 07:29 Dose: 1 puff Documented By: CHUNG Gabapentin (Gabapentin 600 Mg Tablet) 600 mg PO TID [facility] Last Admin: 02/14/25 20:31 Dose: 600 mg Documented By: CHIN Glucose (Glucose Gel 15 Gm Gel..Gram.) 15 gm PO Q15M PRN; Protocol PRN Reason: per Hypoglycemia Standing Ord. Hydroxyzine HCl (Hydroxyzine Hcl 25 Mg Tablet) 25 mg PO TID PRN PRN Reason: itch Last Admin: 02/12/25 08:20 Dose: 25 mg Documented By: NIECY Insulin Human Lispro (Insulin Lispro 100 Unit/Ml 3 Ml Vial) 0 unit SUBCUT QIDACHS [facility]; Protocol Last Admin: 02/14/25 20:47 Dose: 2 unit Documented By: CHIN Losartan Potassium (Losartan Potassium 50 Mg Tablet) 50 mg PO DAILY [facility]; Protocol Last Admin: 02/14/25 07:39 Dose: 50 mg Documented By: YOSEF Magnesium Hydroxide (Milk Of Magnesia 30 Ml Oral.Susp) 30 ml PO DAILY PRN PRN Reason: Constipation Melatonin (Melatonin 3 Mg Tablet) 6 mg PO BEDTIME PRN PRN Reason: Insomnia Last Admin: 02/14/25 03:01 Dose: 6 mg Documented By: HUA Metoprolol Succinate (Metoprolol Succinate Er 50 Mg Tab.Er.24h) 50 mg PO DAILY [facility]; Protocol Last Admin: 02/14/25 07:40 Dose: 50 mg Documented By: YOSEF Non-Formulary Medication (Eplerenone) 50 mg PO DAILY [facility] Nystatin (Nystatin Ointment 15 Gm Tube) 1 appl TOPICAL TID JOSEFA; Protocol Last Admin: 02/14/25 20:39 Dose: 1 appl Documented By: CHIN Oxycodone HCl (Oxycodone Hcl Immed Release 5 Mg Tablet) 10 mg PO Q6H PRN PRN Reason: Breakthrough Pain Last Admin: 02/14/25 03:01 Dose: 10 mg Documented By: HUA Polyethylene Glycol (Polyethylene Glycol 3350 17 Gm Powd.Pack) 17 gm PO DAILY PRN PRN Reason: Constipation Sodium Chloride (0.9 % Sodium Chloride Flush 3 Ml Syringe) 3 ml IVFLUSH QSHIFT [facility] Last Admin: 02/15/25 00:41 Dose: Not Given Documented By: CHIN Non-Admin Reason: Previously Administered Tamsulosin HCl (Tamsulosin Hcl 0.4 Mg Capsule) 0.4 mg PO BEDTIME JOSEFA Last Admin: 02/14/25 20:31 Dose: 0.4 mg Documented By: CHIN Triamcinolone Acetonide (Triamcinolone Acet 0.1 % Cream 15 Gm Tube) 1 appl TOPICAL BID JOSEFA; Protocol Last Admin: 02/14/25 20:39 Dose: 1 appl Documented By: CHIN Vitamin D (Cholecalciferol (Vitamin D3) 25 Mcg Tablet) 25 mcg PO DAILY JOSEFA Last Admin: 02/14/25 07:39 Dose: 25 mcg Documented By: YOSEF Labs 02/14/25 06:49 02/14/25 06:49 Labs: Laboratory Results - last 24 hr 02/14/25 02/14/25 02/14/25 06:49 10:55 16:37 MCV 86.1 MCH 27.9 MCHC 32.5 RDW 15.6 Plt Count 217 MPV 10.5 Absolute Nucleated RBC 0.000 Nucleated RBC % (auto) 0.0 Anion Gap 11 L Estim Creat Clear Calc 104.3 Estimated GFR > 60 POC Glucose 158 H 213 H Random Glucose 162 H Calcium 8.3 L 02/14/25 20:39 MCV MCH MCHC RDW Plt Count MPV Absolute Nucleated RBC Nucleated RBC % (auto) Anion Gap Estim Creat Clear Calc Estimated GFR POC Glucose 190 H Random Glucose Calcium Assessment and Plan (1) Sepsis: Status: Acute (2) Cellulitis: Status: Acute Plan 80-year-old male with a past medical history of history, HLD, CHF, AFib on Eliquis, neuropathy, diabetes, COPD, history of cauda equina compression, obesity, spinal stenosis, mostly wheelchair-bound; presented to the hospital today with a chief complaint of shortness of breath, lethargy/altered mental status. Admitted for following 80-year-old male with a past medical history of history, HLD, CHF, AFib on Eliquis, neuropathy, diabetes, COPD, history of cauda equina compression, obesity, spinal stenosis, mostly wheelchair-bound; presented to the hospital today with a chief complaint of shortness of breath, lethargy/altered mental status. Acute metabolic encephalopathy in the setting of abdominal wall cellulitis with severe sepsis The patient was admitted after being found lethargic and obtunded at home, presenting to the ED somnolent but subsequently improving to near baseline mental status during hospitalization. Workup revealed cellulitis of the lower abdomen extending to the perineum on pelvic CT, without evidence of soft tissue gas or fluid collection. The patient met sepsis criteria on admission, with fever, tachycardia, tachypnea, leukocytosis, and an elevated lactic acid of 3.8, requiring initial BiPAP/CPAP support. Management included IV vancomycin and piperacillin-tazobactam (Zosyn), with Infectious Disease consultation recommending trending WBC and surgical evaluation if WBC increased. Blood cultures remained negative, and the patient?s WBC count downtrended with clinical improvement. Antibiotics were transitioned to oral cephalexin (Keflex) as the patient stabilized, and no surgical intervention was required. Plan Continue Keflex day 3/14 Continue Marte Wound care Marte placed POA for adequate healing of the pannus-outpatient [facility] voiding trials at the time of DC Lactic acidosis: Patient was given gentle IV fluids in the ER. Resolved Acute on chronic HFpEF AFib on Eliquis Likely in the setting of sepsis , continued home metoprolol and Eliquis and resumed eplerenone after a day with good effect. Resume home diuretics eplerenone Type 2 troponinemia Likely in the setting of type 2 [place], monitored on telemetry. Downtrended Insulin-dependent type 2 Diabetes Insulin sliding scale, Lantus while inpatient And Diabetic diet COPD: Stable. DuoNebs p.r.n. DVT prophylaxis: Eliquis resumed Code status: DNR/DNI, confirmed with the patient's Discharge fell through as the patient's stated she is unable to care for the patient at home, hence we will continue p.o. antibiotics and PT/OT. awaiting SNF placement Quality Stroke Does the patient have a stroke diagnosis?: No VTE Prior VTE?: No VTE Risk Level:: Medical - moderate - high VTE Device Contraindication: Treatment Not Indicated VTE Drug Contraindication: N/A - Med Ordered
[2025-02-15 07:42] LABS: Glucose, Whole Blood 178 mg/dL (60-115)
[2025-02-15] MEDS: Fluticasone/Umeclidinium/Vilanterol 100/62.5/25 BLST.W.DEV 1 PUFF INHALE (07:58)
[2025-02-15 07:59] VITALS: PULSE 70; RESP 16; O2SAT 94
[2025-02-15 08:00] VITALS: BP 140/78
[2025-02-15] MEDS: 0.9 % Sodium Chloride Flush 3 ML SYRINGE IVFLUSH (08:04)
[2025-02-15] MEDS: Metoprolol Succinate ER 50 MG TAB.ER.24H PO (08:04)
[2025-02-15] MEDS: Triamcinolone Acet 0.1 % Cream 15 GM TUBE 1 APPL TOPICAL (08:05)
--- NOTE | 2025-02-15 10:59 | MHC.CM.PN ---
Patient is medically cleared for dc to SNF/STR today. Patient will dc to [facility] today at 4PM, via [facility]. CM addressed IMM with Patient and .
[2025-02-15 11:00] LABS: Glucose, Whole Blood 194 mg/dL (60-115)
--- NOTE | 2025-02-15 11:28 | PM.DS ---
DS: Providers Provider Date of Service: 02/15/25 Date of admission: 02/11/25 00:30 Date of discharge: 02/15/25 Primary care physician: Unknown Physician Consults: 02/11/25 00:33 Consult to Infectious Diseases Routine Consulting Provider[place] [facility] Reason for consultation: cellulitis 02/11/25 00:43 Consult to Cardiology Routine Consulting Provider: [facility] Reason for consultation: chf 02/11/25 14:25 Consult to Wound Care Routine Consulting Provider: [facility] Reason for consultation: Scrotal and pannus infection/ulcerations; CVSD DS: Diagnosis Discharge Diagnosis (1) Sepsis: Status: Acute (2) Cellulitis: Status: Acute DS: Summary Hospital Course Hospital Course: H&P: Chief Complaint: ams 80-year-old male with a past medical history of history, HLD, CHF, AFib on Eliquis, neuropathy, diabetes, COPD, history of cauda equina compression, obesity, spinal stenosis, mostly wheelchair-bound; presented to the hospital today with a chief complaint of shortness of breath, lethargy. Patient was doing fine but she suddenly became ill as per the patient's . Has been complaining of shortness of breath. Has had chronic ulcers on his legs. Because of his spinal stenosis is mostly wheelchair-bound but he is able to get up and walk with the help of his walker to the bathroom. For the past 1 day of shortness of breaths Reports patient has urinary frequency but unchanged from prior. Patient does not have chronic Marte. At the time of my interview patient is more alert but sleepy. Denies any pain. Review of all other systems is negative except mentioned above ER course: Per ER team, patient initially complained of shortness of breaths; has coarse breath sounds; concern for possible mild CHF exacerbation. Placed on supplemental oxygen. Patient blood pressure was stable. Patient also qualified for sepsis criteria. Febrile and has leukocytosis. Also noted lactic acidosis. Patient noted to have significant cellulitis of his abdominal wall fold extending into the groin and perineum. Less concern for for nurse PACS. CT abdomen pelvis was done which showed abdominal fold skin thickening. No gas. Given IV vancomycin and Zosyn. Marte catheter placed in the ER Hospital course: 80-year-old male with a past medical history of history, HLD, CHF, AFib on Eliquis, neuropathy, diabetes, COPD, history of cauda equina compression, obesity, spinal stenosis, mostly wheelchair-bound; presented to the hospital today with a chief complaint of shortness of breath, lethargy/altered mental status. Acute metabolic encephalopathy in the setting of abdominal wall cellulitis with severe sepsis The patient was admitted after being found lethargic and obtunded at home, presenting to the ED somnolent but subsequently improving to near baseline mental status during hospitalization. Workup revealed cellulitis of the lower abdomen extending to the perineum on pelvic CT, without evidence of soft tissue gas or fluid collection. The patient met sepsis criteria on admission, with fever, tachycardia, tachypnea, leukocytosis, and an elevated lactic acid of 3.8, requiring initial BiPAP/CPAP support. Management included IV vancomycin and piperacillin-tazobactam (Zosyn), with Infectious Disease consultation recommending trending WBC and surgical evaluation if WBC increased. Blood cultures remained negative, and the patient?s WBC count downtrended with clinical improvement. Antibiotics were transitioned to oral cephalexin (Keflex) as the patient stabilized, and no surgical intervention was required. The patient is being discharged on a 13-day course of oral Keflex, with a Marte catheter in place to rest the affected area; detailed instructions for catheter and wound care have been provided. PT/OT evaluation was completed with recommendations for safe mobility at home. The patient should monitor for fever, worsening redness or swelling, drainage, or changes in mental status, and follow all instructions for catheter care and antibiotic completion. Marte placed POA for adequate healing of the pannus-outpatient VNA voiding trials Lactic acidosis: Patient was given gentle IV fluids in the ER. Resolved Acute on chronic HFpEF AFib on Eliquis Likely in the setting of sepsis , continued home metoprolol and Eliquis and resumed eplerenone after a day with good effect. Resume home diuretics eplerenone Type 2 troponinemia Likely in the setting of type 2 NH, monitored on telemetry. Downtrended Insulin-dependent type 2 Diabetes Insulin sliding scale, Lantus while inpatient And Diabetic diet COPD: Stable. DuoNebs p.r.n. DVT prophylaxis: Eliquis resumed Code status: DNR/DNI, confirmed with the patient's Patient has 12 more days of oral Keflex Voiding trials outpatient with VNA Follow up with PCP within a week Anticipated stay in a rehab is expected to be less than 30 days Time spent discussing smoking cessation with patient: more than 10 minutes Status at Discharge Functional status at discharge: bed bound Overall status at discharge: patient is progressing back to baseline Time Attestation Discharge Coordination Time (in mins): 76 Quality: Safe Use of Opioids Does Pt have an Active Cancer Diagnosis on the Problem List?: No Quality: Stroke Does the patient have a stroke diagnosis?: No Physical Exam Exam: Exam: General: AOx3, no acute distress Resp: CTA bilaterally CVS: Irregularly irregular rhythm GI/: +BS, diffuse lower abdominal tenderness. Abdomen and scrotum with erythema, multiple superficial ulcerations, obese; improving : Marte draining clear yellow urine Vital Signs: Vital Signs: Last Vital Signs Temp 96.8 F 02/15/25 04:00 Pulse 70 02/15/25 07:59 Resp 16 02/15/25 07:59 BP 140/78 H 02/15/25 08:00 Pulse Ox 93 02/15/25 04:00 O2 Del Method Room Air 02/15/25 04:00 O2 Flow Rate 2 02/11/25 06:33 FiO2 50 02/10/25 18:48 BMI result Body Mass Index 49.9 DS: Data Data Completed and Pending Labs on day of discharge: Laboratory Results - last 24 hr 02/14/25 02/14/25 02/15/25 16:37 20:39 07:33 POC Glucose 213 H 190 H 178 H 02/15/25 10:52 POC Glucose 194 H Preliminary micro results at discharge 02/10/25 18:23 Blood Culture - Preliminary Blood - Venous No growth after 48 hours. 02/10/25 18:30 Blood Culture - Preliminary Blood - Venous No growth after 48 hours. Discharge Plan Discharge Anticipated Discharge Date/Time: 02/14/25 15:45 Patient Disposition: Xfer SNF Discharge Diagnosis: Panniculitis prior group B strep Referrals: [facility] [Outside] - 1 Week Gail Blancas MD [Physician, Infectious Disease] - 1 Week Physician,Saroj J [Primary Care Provider, Medical] - 1 Week Discharge Medications: New cephalexin 500 mg Capsule 1,000 mg PO Q6H 13 Days Qty: 104 0RF Continued losartan 50 mg tablet 50 mg PO DAILY gabapentin 600 mg tablet 600 mg PO TID citalopram 20 mg tablet 20 mg PO DAILY nystatin 100,000 unit/gram powder 1 appl topical BID PRN (Reason: abdominal rash) eplerenone 50 mg tablet 50 mg PO DAILY oxycodone 10 mg tablet 10 mg PO Q6H PRN (Reason: Moderate Pain (Scale Score 5-6)) Eliquis 5 mg tablet 5 mg PO BID Humulin R U-500 (Conc) Kwikpen 500 unit/mL (3 mL) insulin pen 45 unit subcut DAILY@1730 Trelegy Ellipta 100-62.5-25 mcg blister with device 1 ea inhalation DAILY docusate sodium 50 mg Capsule 50 mg PO Q6H PRN (Reason: WITH OXYCODONE) Rx Instructions: With oxycodone cholecalciferol (vitamin D3) 25 mcg (1,000 unit) Tablet 25 mcg PO DAILY triamcinolone acetonide 0.1 % cream 1 appl topical BID metoprolol succinate 50 mg Tablet Extended Release 24 Hr 50 mg PO DAILY Qty: 90 0RF Protocol: Hold for SBP/HR < HOLD for SBP < : 90 HOLD for HR < : 60 famotidine 20 mg tablet 20 mg PO BID rosuvastatin 20 mg tablet 20 mg PO DAILY empagliflozin 25 mg Tablet 25 mg PO DAILY tamsulosin 0.4 mg capsule 0.4 mg PO BEDTIME polyethylene glycol 3350 [Miralax] 17 gram/dose Powder 17 g PO DAILY PRN (Reason: Constipation) hydroxyzine pamoate 25 mg capsule 25 mg PO TID PRN (Reason: itch) albuterol sulfate 90 mcg/actuation Aerosol Powdr Breath Activated 2 inh INHALATION Q6H PRN (Reason: Shortness Of Breath Or Wheezing) Humulin R U-500 (Conc) Kwikpen 500 unit/mL (3 mL) insulin pen 50 unit subcut DAILY@0900 Discharge Orders: Discharge Order (Routine); Ordered 02/15/25 Ordered By: Linda Phillips Diet: Low salt diet Activity on Discharge: Use cane or walker Stand Alone Forms: Patient Portal Discharge page Print Language: Polish Care Plan Goals: Diagnosis: Panniculitis (inflammation of the fat layer under the skin) Reason for Marte Catheter: A Marte catheter has been placed to allow the affected area to rest and heal by minimizing irritation and trauma. Wound and Skin Care: Keep the affected area clean and dry. Gently wash with mild soap and water; pat dry. If dressings are present, change them as instructed and monitor for signs of infection (increased redness, swelling, warmth, pus, or foul odor). Marte Catheter Care: Ensure the catheter tubing is not kinked or pulled. Keep the catheter and surrounding area clean. Wash the area around the catheter with soap and water daily. Always keep the drainage bag below the level of your bladder to prevent backflow. Empty the drainage bag when it is about two-thirds full or at least every 8 hours. Do not disconnect the catheter from the drainage bag unless instructed. Avoid pulling or tugging on the catheter. Signs to Watch For (Call Your Provider If): Fever >100.4?F (38?C) Worsening redness, swelling, or pain at the panniculitis site or around the catheter Pus or foul-smelling drainage from the wound or catheter site Cloudy, foul-smelling, or bloody urine Catheter stops draining urine New or spreading rash Difficulty moving the affected limb Any other concerning symptoms Medications: Take all prescribed medications as directed (e.g., antibiotics, anti-inflammatories, pain relievers). Do not stop medications early unless instructed. Activity: Rest the affected area as much as possible. Elevate the limb (if panniculitis is on an arm or leg) to reduce swelling. Avoid strenuous activity until cleared by your provider. Follow-Up: Keep your scheduled follow-up appointment for wound and catheter evaluation. Contact your provider with any questions or concerns. Additional Instructions: Maintain good hydration and nutrition to support healing. If you have an underlying condition contributing to panniculitis, continue to follow your treatment plan for that condition. Health Concerns: See above Plan of Treatment: See above Assessment: See above Patient Instructions: Marte Catheter Care, Cellulitis (ED)
[2025-02-15 11:55] VITALS: PULSE 93; RESP 19; TEMP 36.5; O2SAT 93
[2025-02-15 15:51] VITALS: BP 148/78; PULSE 63; RESP 18; TEMP 36.9; O2SAT 92
[2025-02-15 16:53] LABS: Glucose, Whole Blood 185 mg/dL (60-115)
== END 2025-02-15 17:17 | disposition skilled nursing facility (03) | DRG 871 ==
LOC: HO.ED 19:45 → HO.EDOVER 02-11 00:36 → HO.IMC 02-11 14:54
PROVIDERS: Student in an Organized Health Care Education/Training Program; Admitting Provider Hospitalist; Emergency Provider Student in an Organized Health Care Education/Training Program; Visit Provider Student in an Organized Health Care Education/Training Program
DX: A41.9 Sepsis, unspecified organism (principal); G93.41 Metabolic encephalopathy; I21.A1 Myocardial infarction type 2; I50.33 Acute on chronic diastolic (congestive) heart failure; L03.311 Cellulitis of abdominal wall; I48.21 Permanent atrial fibrillation; I48.92 Unspecified atrial flutter; Z66 Do not resuscitate; B95.1 Streptococcus, group B, as the cause of diseases classified elsewhere; E11.40 Type 2 diabetes mellitus with diabetic neuropathy, unspecified; J44.9 Chronic obstructive pulmonary disease, unspecified; R65.20 Severe sepsis without septic shock; Z20.822 Contact with and (suspected) exposure to COVID-19; Z79.4 Long term (current) use of insulin; Z79.01 Long term (current) use of anticoagulants; Z79.899 Other long term (current) drug therapy
CPT/HCPCS: 36415; 71260; 72192; 74176; 74177; 80048; 80053; 80202; 81001; 82803; 82947; 83605; 83690; 83880; 84484; 85025; 85027; 87040; 87637; 93005; 94640; 97162; 97166; 97530; 99285; J0131; J0736; J1885; J2405; J2543; J3373; J3374; J7120; Q9967

== ENCOUNTER → 2025-02-10 18:09 | Outpatient (BNV) | payer MEDICARE, SELFPAY | PROVIDERS: Admitting Provider Hospitalist; Emergency Provider Student in an Organized Health Care Education/Training Program; Visit Provider Internal Medicine | DX: I48.92 Unspecified atrial flutter (principal) | CPT/HCPCS: 93010 ==

== ENCOUNTER → 2025-02-10 19:47 | Outpatient (BNV) | payer MEDICARE, SELFPAY | PROVIDERS: Emergency Provider Student in an Organized Health Care Education/Training Program; Visit Provider Student in an Organized Health Care Education/Training Program | DX: K44.9 Diaphragmatic hernia without obstruction or gangrene (principal); A41.9 Sepsis, unspecified organism; I51.7 Cardiomegaly; R91.8 Other nonspecific abnormal finding of lung field | CPT/HCPCS: 71260; 74177 ==

== ENCOUNTER → 2025-02-11 00:30 | Outpatient (BNV) | payer MEDICARE, SELFPAY | PROVIDERS: Admitting Provider Hospitalist; Emergency Provider Student in an Organized Health Care Education/Training Program; Visit Provider Internal Medicine | DX: A41.9 Sepsis, unspecified organism (principal); R65.20 Severe sepsis without septic shock; L03.90 Cellulitis, unspecified | CPT/HCPCS: 99222; 99232 ==

== ENCOUNTER → 2025-02-11 00:30 | Outpatient (BNV) | payer MEDICARE, SELFPAY | PROVIDERS: Admitting Provider Hospitalist; Emergency Provider Student in an Organized Health Care Education/Training Program; Visit Provider Internal Medicine | DX: I50.9 Heart failure, unspecified (principal); I48.19 Other persistent atrial fibrillation; A41.9 Sepsis, unspecified organism; R65.20 Severe sepsis without septic shock | CPT/HCPCS: 93010; 99223 ==

== ENCOUNTER → 2025-02-11 00:30 | Outpatient (BNV) | payer MEDICARE, SELFPAY | PROVIDERS: Admitting Provider Hospitalist; Emergency Provider Student in an Organized Health Care Education/Training Program; Visit Provider Hospitalist | DX: A41.9 Sepsis, unspecified organism (principal); R65.20 Severe sepsis without septic shock; L03.311 Cellulitis of abdominal wall | CPT/HCPCS: 99222; 99233; 99239; 99499 ==

== ENCOUNTER 2025-02-28 07:20 | Outpatient (REF) | payer SELFPAY ==
[2025-02-28 07:23] LABS: MANUAL DIFF FLAG NO
--- OUTSIDE RECORDS SUMMARY | 2025-02-28 07:23 | XMS_ITS | Clinical Summary ---
Author Organization [facility] Address [address] [place] [address] Phone Care Team Providers Care Billing Manager Name Role Phone Rufus De Luna MD Primary Care Provider [phone] Rufus De Luna MD Unavailable Allergies Active [...] 023 Active blood-glucose meter,continuou s (DEXCOM G7 BANK ANALYST) MiscIndications :Type 2 diabetes mellitus with microalbuminuri [...] a day. 100 each 3 025 Active insulin regular U-500 CONC (HUMULIN R, KWIKPEN) 500 unit/mL (3 mL) subcutaneous injection penIndications: Type 2 diabetes mellitus with microalbuminuri a, with long-term current use of insulin,Type 2 diabetes mellitus with diabetic neuropathy, with long-term current use of insulin Use 50 units before breakfast and 45 units at dinner 25 mL 025 2024 Discontinued(Jet hoskins) BD ULTRA-FINE MINI PEN NEEDLE 31 gauge x / NdleIndications :Type 2 diabetes mellitus with microalbuminuri [...] this as he has been seen at [facility] and [place] and leg wounds have been going on [...] this as he has been seen at [facility] and leg wounds have been going on [...] this as he has been seen at [facility] and leg wounds have been going on [...] A1c goals of less than 7%. The [place] geriatric Society recommends a goal of A1c of 7.5 to 8% in older patients with moderate comorbidities and life expectancy less than 10 years. The [place] diabetes Association recommends a goal of less [...] visiting nurse which apparently is employed from [facility] and all his doctors are [facility] yet she sent for lab work to [facility]. This does not make any sense and I advised the patient's to asked the nurse to send the lab work to [facility] because we do not have access [...] patient's requested that the visiting nurse from [facility] obtain lab which is fine by [...] and obtain data to show to the artist relationship manager so that on the upcoming appointment carlin [...] paresthesias and urinary incontinence. Urgent consult with [facility] neurosurgery will be arranged. A prescription for hospital bed electric and prescription for power wheelchair was prescribed. We will fill out the paperwork associated with it. Depending on the neurosurgical consult patient could require urgent surgery then transfer possibly to a different rehab facility for example [facility] in [place] before occupying his new apartment. Tentatively the [...] family are hoping for acute rehab in [place] -Bowel regimen initiated HTN (hypertension) 04/27/2022 Assessment [...] states patient was on chronic O2 in [place], but hasnt been on it while here. [...] panels. A total of 45 minutes of nqed-si-[id number] time with the patient with additional 20 [...] Trelegy, will work with the respiratory care Myrl to provide patient oxygen. We will use the records from [place] to justify continuing prescription of O2 support. Consider pulmonology consultation. Assessment & Plan (12/06/2021 5:55 PM EDT): History of COPD. No past tobacco use. He has required oxygen in the past. Uses Trelegy Not currently in exacerbation Trelegy here. Encounters Date Type Department Care Team Description 02/25/2025 Refill [facility] [address] [place] [address] Franko Mccord PA-C Med Change Request 02/21/2025 Home Care Visit [facility] [address] [place] [phone] Thelma Trevino NON OASIS DISCHARGE NON VISIT/TELEPHONE 02/14/2025 Home Health Resumption of Care Planning [facility] [address] [place] [phone] Elizabeth Ingram RN 02/13/2025 12:00 PM EST Home Care Visit [facility] [address] [place] [address] Nilam Solares, ADELAIDE SN OASIS TRANSFER 02/09/2025 12:30 PM EST Home Care Visit [facility] [address] [place] [address] Veronique Rubio LPN SENIOR SOFTWARE ENGINEER HOME VISIT 02/09/2025 Telephone [facility] [address] [place] [address] [place] [address] Rach Lomax [place], [place] 02/08/2025 4:00 PM EST Telemedicine [facility] [address] [place] [address] Sam Gonzalez DO Type 2 diabetes mellitus with microalbuminuria, with long-term current use of insulin (Primary Dx); Type 2 diabetes mellitus with diabetic neuropathy, with long-term current use of insulin; Hyperlipidemia LDL goal <70 02/06/2025 10:15 AM EST Home Care Visit [facility] [address] [place] [address] Veronique Rubio LPN SENIOR SOFTWARE ENGINEER HOME VISIT 02/02/2025 11:30 AM EST Home Care Visit [facility] [address] [place] [address] Lizzy Maciel RN SN HOME VISIT 01/31/2025 Home Care Visit [facility] [address] [place] [address] Myles Gaines, RN CASE COMMUNICATION 01/30/2025 2:15 PM EST Home Care Visit [facility] [address] [place] [address] Myles Gaines, ADELAIDE SN HOME VISIT 01/30/2025 Telephone [facility] [address] [place] [address] Padma Olsen, ADELAIDE VNA Update 01/27/2025 Telephone [facility] [address] [place] [address] Sam Gonzalez DO Medication Problem 01/26/2025 10:00 AM EST Home Care Visit [facility] [address] [place] [address] Sushil Yepez, ADELAIDE SN HOME VISIT 01/25/2025 Episode Documentation Update [facility] [address] [place] [address] Thelma Trevino 01/24/2025 Telephone [facility] Care [facility] [address] [place] [address] Rufus De Luna MD ORDERS 01/23/2025 1:45 PM EST Home Care Visit [facility] [address] [place] [address] Veronique Rubio LPN SENIOR SOFTWARE ENGINEER HOME VISIT 01/23/[address] [address] Rufus De Luna MD Med Change Request 01/19/2025 12:30 PM EST Home Care Visit [facility] [address] [place] [address] Veronique Rubio LPN SENIOR SOFTWARE ENGINEER HOME VISIT 01/19/[address] [address] Rufus De Luna MD Medication Refill 01/16/2025 2:00 PM EST Home Care Visit [facility] [address] [place] [address] Ghazal Waldrop, ADELAIDE SN HOME VISIT 01/14/2025 Refill [facility] [address] [place] [address] Sam Gonzalez DO Medication Refill 01/12/2025 Telephone [facility] [address] [place] [address] Rufus De Luna MD 01/12/2025 Telephone [facility] [address] [facility] [place] [address] Rufus De Luna MD Forms & Paperwork 01/11/2025 12:30 PM EST Home Care Visit [facility] [address] [place] [phone] Ghazal Waldrop RN SN OASIS START OF CARE (SOC) 01/11/2025 Telephone [facility] [address] [facility] [place] [address] Rufus De Luna MD Wound Care 01/11/2025 Plan of Care Documentation [facility] [address] [place] [phone] 01/10/2025 Home Care Visit [facility] [address] [place] [phone] Chayo Ramos, ADELAIDE CASE COMMUNICATION 01/09/2025 Telephone [facility] [address] [place] [address] Rufus De Luna MD Rosuvastatin Clarification 01/09/2025 Telephone [facility] [address] [facility] [place] [address] Barrera, Stone Medication Prior Authorization (Rosuvastatin) 01/06/2025 Refill [facility] [address] [facility] [place] [address] Rufus De Luna MD Med Change Request 01/04/2025 Orders Only [facility] [address] [place] [address] Rufus De Luna MD Cellulitis of right leg (Primary Dx) 2025 3:02 PM EDT - 2025 11:59 PM EDT Hospital Encounter [facility] [address] [place] [address] Rufus De Luna MD Discharge Disposition: Home or Self Care 2025 2:00 PM EDT Office Visit [facility] [address] [facility] [facility] [place] [address] Rufus De Luna MD Type 2 diabetes mellitus with microalbuminuria, with long-term current use of insulin (Primary Dx); Obesities, morbid; Cauda equina compression; Chronic congestive heart failure, unspecified heart failure type; Persistent atrial fibrillation; Simple chronic bronchitis; Venous stasis ulcer of right ankle limited to breakdown of skin without varicose veins; Dyslipidemia; Gastroesophageal reflux disease without esophagitis 2025 Refill [facility] [address] [place] [address] Rufus De Luna MD Med Change Request 2025 Orders Only [facility] [address] [place] [phone] Homehealth, Interface ProviderMD from Last 3 Months Immunizations Immunization Administration Dates Next Due COVID-19 (Pre-12/29) Pfizer Vaccine, mRNA, PF 06/25/2021,07/11/2020,06/19/2020 COVID-19 [facility] ccine 12+ 04/23/2023 Influenza High-Dose Quadriva lent [...] with others, in a hotel, in a correction, living outside on the street, on a [...] Sign Reading Time Taken Comments Blood Pressure 122/86 02/09/2025 12:00 AM EST Pulse 67 02/09/2025 12:00 AM EST Temperature 36.3 C (97.4 F) 02/09/2025 12:00 AM EST Respiratory Rate 17 02/09/2025 12:00 AM EST Oxygen Saturation 96% 02/09/2025 12:00 AM EST Inhaled Oxygen Concentration - - Weight 142.4 kg (314 lb) 08/05/2024 12:21 PM EDT Height 170.2 cm (5' 7.01 ) 08/05/2024 12:21 PM E DT Body Mass Index 49.17 08/05/2024 12:21 PM EDT Plan of Treatment Upcoming Encounters Date Type Department Care Team (Late st Contact Info) Description 07/10/2025 1:30 PM EDT Office Visit [facility] [address] [place] [address] Rufus De Luna MD [address] [place] [address] [email or web address] Health Maintenance Due Date Last Done Comments [...] 03/10, 01/27/2024, Additional history exists BLOOD PRESSURE 08/10/2025 02/09/2025 DEPRESSION SCREENING 01/02/2026 01/02/2025, 01/02/2025, 03/06/2022, Additional [...] EDT) SODIUM 137 133 - 146 mmol/L [facility] POTASSIUM 4.0 3.3 - 5.1 mmol/L [facility] CHLORIDE 102 96 - 108 mmol/L [facility] CO2 24 21 - 35 mmol/L [facility] BUN 12 6 - 19 mg/dL [facility] CREATININE 0.90 0.5 - 1.5 mg/dL [facility] GLUCOSE 96 70 - 99 mg/dL [facility] ALBUMIN 3.3(L) 3.9 - 4.8 g/dL [facility] TOTAL PROTEIN 7.5 6.5 - 8.0 g/dL [facility] CALCIUM 9.1 8.4 - 10.3 mg/dL [facility] ALKALINE PHOSPHATASE 157(H) 39 - 117 U/L [facility] TOTAL BILIRUBIN 0.6 0.0 - 1.2 mg/dL [facility] AST 18 0 - 37 U/L [facility] ALT 9 0 - 40 U/L [facility] GLOBULIN 4.2 1 - 4.8 g/dL [facility] EGFR 86 >59 mL/min/1.7 3m2 [facility] Comment:Estimated glomerular filtration rate calculated using the CKD-EPI refit equation. ANION GAP 15 10 - 20 mmol/L [facility] Blood 2025 3:03 PM EDT 2025 3:12 PM EDT us Rufus De Luna MD LAB BLOOD BKR ORDERABLES Final R esult [address] [address] * (ABNORMAL) CBC (2025 3:03 PM EDT) WBC 10.27 4.00 - 11.00 K/uL [facility] RBC 5.22 4.50 - 5.90 M/uL [facility] HGB 14.4 13.5 - 17.5 g/dL [facility] HCT 45.4 41.0 - 53.0 % [facility] PLT 268 150 - 450 K/uL [facility] MCV 87.0 80.0 - 100.0 fL [facility] MCH 27.6 27.0 - 31.0 pg [facility] MCHC 31.7(L) 32.0 - 36.0 g/dL [facility] RDW 15.7(H) 11.5 - 14.5 % [facility] MPV 10.5 8.4 - 12.0 fL [facility] NRBC 0.00 0.00 /100 WBCs [facility] ABSOLUTE NRBC 0.00 0.00 K/uL [facility] Blood 2025 3:03 PM EDT 2025 3:12 PM EDT us Rufus De Luna MD LAB BLOOD BKR ORDERABLES Final R esult Performing Organization Address [facility] Co de Phone Number [address] [address] * (ABNORMAL) C-Reactive Protein (2025 3:03 PM EDT) C REACTIVE PROTEIN 29.7(H) 0.0 - 4.0 mg/L [facility] Blood 2025 3:03 PM EDT 2025 3:12 PM EDT us Rufus De Luna MD LAB BLOOD BKR ORDERABLES Final R esult Performing Organization Address City/[facility]/ZIP Co de Phone Number [address] [address] * (ABNORMAL) Hemoglobin A1c (2025 3:03 PM EDT) HEMOGLOBIN A1C 8.0(H) 4.3 - 5.8 % [facility] Blood 2025 3:03 PM EDT 2025 3:13 PM EDT us Rufus De Luna MD LAB BLOOD BKR ORDERABLES Final R esult Performing Organization Address City/[facility]/ZIP Co de Phone Number [address] [address] * (ABNORMAL) Lipid panel (2025 3:03 PM EDT) HDL 49 mg/dL [facility] Comment: Interpretation <40 mg/dL: Low HDL cholesterol (major risk factor for CHD) Greater than or equal to 60 mg/dL: High HDL cholesterol ( negative risk factor for CHD) HDL - cholesterol is affected by a number of factors, e.g. smoking, excerise, hormones, sex and age. CHOLESTEROL 91 0 - 240 mg/dL [facility] TRIGLYCERIDES 72 30 - 160 mg/dL [facility] LDL 28(L) 50 - 129 mg/dL [facility] Comment: LDL levels in terms of risk for coronary heart disease: <100 mg/dL: Optimal 100-129 mg/dL: Near or above optimal 130-159 mg/dL: Borderline high 160-189 mg/dL: High >190 mg/dL: Very High CARDIAC RISK RATIO 1.9(L) 3.4 - 5.0 C [facility] Blood 2025 3:03 PM EDT 2025 3:12 PM EDT us Rufus De Luna MD LAB BLOOD BKR ORDERABLES Final R esult Performing Organization Address City/State/[facility] Co de Phone Number [facility] [address] [place] [address] * Toxicology Screen, Urine (2025 8:22 AM EDT) Amphetamines, urine - External [facility] Barbiturates, urine - External [facility] Benzodiazepines , urine - External [facility] THC, urine - External [facility] Cocaine, urine - External [facility] Methamphetamine s, urine - External [facility] Opiates, urine - External [facility] Oxycodone, urine - External [facility] Fentanyl, urine - External [facility] Propoxyphene, urine - External [facility] Buprenorphine, urine - External [facility] Tricyclics, urine - External [facility] Methadone, urine - External [facility] Morphine, urine - External [facility] MDMA, urine - External [facility] PCP, urine - External [facility] Other Findings - External [facility] Urine (Urine) 2025 8:2 2 AM EDT Rufus De Luna MD LAB URINE ORDERABLES Final Resul t [facility] [address] [place] [address] from Last 3 Months Insurance MEDICARE PART A & B [employer] MEDEX SUPPLEMENT MEDICARE PART A & B Member Subscriber Plan / Payer (Ef fective 2008-Present) Name:Sam Meier Member ID:[id number] Relation to Subscriber:Self Name:Sam Meier Subscriber ID:[id number] Payer ID:[id number] Group ID:Not on file Type:Medicare Address: Spare Backup [address] [place] [phone] [employer] MEDEX SUPPLEMENT MEDICARE PART A & B Member Subscriber Plan / Payer (Ef fective 2008-Present) Name:Sam Meier Member ID:[id number] Relation to Subscriber:Self Name:Sam Meier Subscriber ID:[id number] Payer ID:[id number] Group ID:Not on file Type:Medicare Address: Spare Backup [address] [employer] MEDEX SUPPLEMENT MEDICARE PART A & B [employer] MEDEX SUPPLEMENT MEDICARE PART A & B [employer] MEDEX SUPPLEMENT MEDICARE PART A & B [facility] MEDEX SUPPLEMENT MEDICARE PART A & B [employer] MEDEX SUPPLEMENT MEDICARE PART A & B [employer] MEDEX SUPPLEMENT MEDICARE PART A & B [employer] MEDEX SUPPLEMENT Advance Directives For more information, please contact: [phone] (9AM - 5PM [facility], Thursday-Thursday) Documents on File Type Date Recorded Patient [employer] Expl anation Healthcare Proxy 12/11/2021 10:23 AM [...] Health Care Agent (Proxy form on file) [email or web address] Sandra Camarillo Daughter Alternate Health care Agent (Proxy form on file) Care Teams Billing Manager Relationship Specialty Start Date End Date Soar, Rufus T, MD [address] [place] [address] [email or web address] PCP - General Internal Medicine 12/04/21 Rufus De Luna MD [address] [place] [address] [email or web address] Insurance Assigned Provider 06/13/23 Additional Source Comments The information contained in this document represents components of the legal health record. It is not the complete legal health record.[facility]
--- OUTSIDE RECORDS SUMMARY | 2025-02-28 07:23 | XMS_ITS | Encounter Summary ---
Author Organization [facility] Address [address] [place] [address] Phone Care Team Providers Care Marking Room Supervisor Name Role Phone Rufus De Luna MD Primary Care Provider [phone] Rufus De Luna MD Unavailable Encounter Details Date Type Department Care Team (Late st Contact Info) Description 12/09/2021 Procedure Pass [facility] Admitting Dept Virtual Department [address] [place] [phone] Social History Tobacco Use Types Packs/Day Years [...] Description 07/10/2025 1:30 PM EDT Office Visit [facility] [address] [place], [place] [phone] Rufus De Luna MD [address] [place] [address] documented as of this encounter Visit Diagnoses Not on filedocumented in this encounter Additional Health Concerns Infection Onset Date Last Indicated Resolved Time CoV-Risk 02/26/2022 02/26/2022 02/27/2022 9:14 AM EST Influenza 02/26/2022 02/26/2022 03/05/2022 1:22 AM EST CoV-Risk Comment:Per note documentation 01/26/2024 01/26/2024 10:04 AM EST documented as of this encounter Care Teams Marking Room Supervisor Relationship Specialty Start Date End Date Rufus De Luna MD [address] [place] [address] PCP - General Internal Medicine 12/04/21 Rufus De Luna MD [address] [place] [address] Insurance Assigned Provider 06/13/23 documented as of this encounter Additional Source Comments The information contained in this document represents components of the legal health record. It is not the complete legal health record.[facility]
--- OUTSIDE RECORDS SUMMARY | 2025-02-28 07:23 | XMS_ITS | Encounter Summary ---
Author Organization [facility] Address [address] [place] [address] Phone Care Team Providers Care Skein Straightener Name Role Phone Rufus De Luna MD Primary Care Provider [phone] Rufus De Luna MD Unavailable Encounter Details Date Type Department Care Team (Late st Contact Info) Description 11/03/2024 Telephone [facility] [address] [place], [place] [phone] Rufus De Luna MD [address] [place], [place] [phone] [email or web address] Social History Tobacco Use Types Packs/Day Years [...] with others, in a hotel, in a senior living, living outside on the street, on a [...] Description 07/10/2025 1:30 PM EDT Office Visit [facility] [address] [place] [address] Rufus De Luna MD [address] [place] [address] [email or web address] documented as of this encounter Visit Diagnoses Not on filedocumented in this encounter Additional Health Concerns Assessment Noted Time PHQ-9 Depression Total Score: 14 022 1:54 PM EST PHQ-2 Depression Total Score: 1 12/18/19 24 4:22 PM EDT documented as of this encounter Care Teams Skein Straightener Relationship Specialty Start Date End Date Rufus De Luna MD [address] [place] [address] [email or web address] PCP - General Internal Medicine 12/04/21 Rufus De Luna MD [address] [place] [phone] [email or web address] Insurance Assigned Provider 06/13/23 documented as of this encounter Additional Source Comments The information contained in this document represents components of the legal health record. It is not the complete legal health record.[facility]
--- OUTSIDE RECORDS SUMMARY | 2025-02-28 07:23 | XMS_ITS | Encounter Summary ---
Author Organization [facility] Address [address] [place] [address] Phone Care Team Providers Care Legal Compliance Officer Name Role Phone Rufus De Luna MD Primary Care Provider [phone] Rufus De Luna MD Unavailable Encounter Details Date Type Department Care Team (Late st Contact Info) Description 12/05/2021 Procedure Pass [facility], [address] [address] Social History Tobacco Use Types Packs/Day Years [...] Description 07/10/2025 1:30 PM EDT Office Visit [facility] [address] [place], [place] [phone] Rufus De Luna MD [address] [place] [address] documented as of this encounter Visit Diagnoses [...] documented as of this encounter Care Teams Legal Compliance Officer Relationship Specialty Start Date End Date Rufus De Luna MD [address] [place] [address] PCP - General Internal Medicine 12/04/21 Rufus De Luna MD [address] [place] [address] [email or web address] Insurance Assigned Provider 06/13/23 documented as of this encounter Additional Source Comments The information contained in this document represents components of the legal health record. It is not the complete legal health record.[facility]
--- OUTSIDE RECORDS SUMMARY | 2025-02-28 07:23 | XMS_ITS | Encounter Summary ---
Author Organization [facility] Address [address] [place] [address] Phone Care Team Providers Care Service Operations Manager Name Role Phone Rufus De Luna MD Primary Care Provider [phone] Rufus De Luna MD Unavailable Encounter Details Date Type Department Care Team (Late st Contact Info) Description 12/04/2021 Procedure Pass [facility], [facility] Scan - [address] [address] Social History Tobacco Use Types Packs/Day Years [...] Description 07/10/2025 1:30 PM EDT Office Visit [facility] [address] [place], [place] [phone] Rufus De Luna MD [address] [place] [address] documented as of this encounter Visit Diagnoses [...] documented as of this encounter Care Teams Service Operations Manager Relationship Specialty Start Date End Date Rufus De Luna MD [address] [place] [address] PCP - General Internal Medicine 12/04/21 Rufus De Luna MD [address] [place] [address] [email or web address] Insurance Assigned Provider 06/13/23 documented as of this encounter Additional Source Comments The information contained in this document represents components of the legal health record. It is not the complete legal health record.[facility]
--- OUTSIDE RECORDS SUMMARY | 2025-02-28 07:23 | XMS_ITS | Encounter Summary ---
Author Organization [facility] Address [address] [place] [address] Phone Care Team Providers Care Childcare Center Administrator Name Role Phone Rufus De Luna MD Primary Care Provider [phone] Rufus De Luna MD Unavailable Encounter Details Date Type Department Care Team (Late st Contact Info) Description 04/27/2022 Procedure Pass [facility], [address] [address] Social History Tobacco Use Types Packs/Day Years [...] high school, GED, job training, learning the [place] language, technical skills, or developing parenting skills)? [...] others, in a hotel, in a senior care, living outside on the street, on a [...] Description 07/10/2025 1:30 PM EDT Office Visit [facility] [address] [place] [address] Rufus De Luna MD [address] [place] [address] [email or web address] documented as of this encounter Visit Diagnoses Not on filedocumented in this encounter Additional Health Concerns Infection Onset Date Last Indicated Resolved Time CoV-Risk Comment:Per note documentation 01/26/2024 01/26/2024 4 10:04 AM EST Assessment Noted Time PHQ-9 Depression Total Score: 14 022 1:54 PM EST PHQ-2 Depression Total Score: 4 01/22/20 22 1:54 PM EST documented as of this encounter Care Teams Childcare Center Administrator Relationship Specialty Start Date End Date Rufus De Luna MD [address] [place] [address] [email or web address] PCP - General Internal Medicine 12/04/21 Rufus De Luna MD [address] [place] [address] [email or web address] Insurance Assigned Provider 06/13/23 documented as of this encounter Additional Source Comments The information contained in this document represents components of the legal health record. It is not the complete legal health record.[facility]
--- OUTSIDE RECORDS SUMMARY | 2025-02-28 07:23 | XMS_ITS | Encounter Summary ---
Author Organization [facility] Address [address] [facility] [address] [place] [address] Phone Care Team Providers Care Child Care Supervisor Name Role Phone Rufus De Luna MD Primary Care Provider [phone] Rufus De Luna MD Unavailable Encounter Details Date Type Department Care Team (Late st Contact Info) Description 02/14/2025 Home Health Resumption of Care Planning [facility] [address] [place] [address] Elizabeth Ingram RN [address] [place] [address] [email or web address] Social History Tobacco Use [...] with others, in a hotel, in a intermediate, living outside on the street, on a [...] Description 07/10/2025 1:30 PM EDT Office Visit [facility] Primary Care [facility] [address] [place] [address] Rufus De Luna MD [address] [place] [address] documented as of this encounter Visit Diagnoses Not on filedocumented in this encounter Additional Health Concerns Assessment Noted Time PHQ-9 Depression Total Score: 21 025 2:51 PM EDT PHQ-2 Depression Total Score: 6 01/03/20 25 2:51 PM EDT documented as of this encounter Care Teams Child Care Supervisor Relationship Specialty Start Date End Date Rufus De Luna MD [address] [place] [address] PCP - General Internal Medicine 12/04/21 Rufus De Luna MD [address] [place] [address] Insurance Assigned Provider 06/13/23 documented as of this encounter Additional Source Comments The information contained in this document represents components of the legal health record. It is not the complete legal health record.[facility]
--- OUTSIDE RECORDS SUMMARY | 2025-02-28 07:23 | XMS_ITS | Encounter Summary ---
Author Organization [facility] Address [address] [place] [address] Phone Care Team Providers Care Grant Coordinator Name Role Phone Rufus De Luna MD Primary Care Provider [phone] Rufus De Luna MD Unavailable Encounter Details Date Type Department Care Team (Late st Contact Info) Description 12/04/2021 Procedure Pass [facility] [address] [place] [address] Social History Tobacco Use Types Packs/Day Years [...] PM EDT Office Visit [facility] [address] [place], [place] [phone] Rufus De Luna MD [address] [place], [place] [phone] documented as of this encounter Visit Diagnoses [...] documented as of this encounter Care Teams Grant Coordinator Relationship Specialty Start Date End Date Rufus De Luna MD [address] [place] [address] [email or web address] PCP - General Internal Medicine 12/04/21 Rufus De Luna MD [address] [place] [address] [email or web address] Insurance Assigned Provider 06/13/23 documented as of this encounter Additional Source Comments The information contained in this document represents components of the legal health record. It is not the complete legal health record.[facility]
--- OUTSIDE RECORDS SUMMARY | 2025-02-28 07:23 | XMS_ITS | Patient Health Record ---
Author Organization [facility] Address [address] [place] [address] Phone [phone] Care Team Providers Care Trawl Net Maker Name Role Phone WILLIAM CAMPBELL DO Unavailable Allergies No Known Allergies Reason For Referral No Information Medications Medication SIG (Take, Route, Frequency, Duration) Notes Start Date End Date Diagnosis (ICD Code) Status HumuLIN R U-500 (CONCENTRATED) 500 UNIT/ML Solution 125 UNITS Subcutaneous TWICE A DAY; Duration: 90 days refill Active Citalopram Hydrobromide 20 MG Tablet 1 tablet Orally Once a day; Duration: 90 days refill Recurrent major depressive disorder, in partial remission (ICD_10 - F33.41) Active Omeprazole 20 MG Capsule Delayed Release TAKE 1 CAPSULE BY MOUTH EVERY DAY; Duration: 90 Active Atorvastatin Calcium 80 MG Tablet TAKE 1 TABLET BY MOUTH EVERY DAY FOR 90 DAYS; Duration: 90 Active Losartan Potassium 100 MG Tablet 1 tablet Orally Once a day; Duration: 90 days Active hydroCHLOROthiazide 25 MG Tablet 1 tablet in the morning Orally Once a day; Duration: 90 days Active Social History Tobacco Use: Social History Observation Description Date Details (start date - stop date) Never Smoker NA - NA Sex Observation Social History Observation Description Sex Observation Male Social History Sexual History: Social Info Question Answer Notes Details of Sexual History Are you sexually active? No How many sexual partners have you had? 1 Sexual History Had sex in the past 12 months (vaginal, oral, or anal)? No Have you ever had a Sexually transmitted disease ? No Drugs/Alcohol: Social Info Question Answer Notes Alcohol Screen (Audit-C) Did you have a drink containing alcohol in the past year? No Points 3 Interpretation Positive Drugs Have you used drugs other than those for medical reasons in the past 12 months? No Household: Social Info Question Answer Notes Household Marital status: Number of adults in household: 3 Number of children in household: 0 Taoist: add to notes Level of education: finished high school Tobacco Use: Social Info Question Answer Notes Screening Not Performed: Reason: Medical Reason Tobacco Use/Smoking Are you a nonsmoker Additional Details Category Social Info Options Details Miscellaneous: Exercise: Yes Home smoke detector use: Yes Marital status: Yes Travel outside of the [place]: No Community involvements: No Drugs/Alcohol: Do you smoke marijuana? No Do you drink alcohol? No Problems Problem Type SNOMED Code ICD Code Dates Problem Status W/U Status Risk Notes Problem Diabetic renal disease (956690304) Type 2 diabetes mellitus with diabetic chronic kidney disease (E11.22) Added On:01/07 Active confirmed Problem Morbid obesity (disorder) (261242434) Morbid (severe) obesity due to excess calories (E66.01) Added On:05/09 Active confirmed Problem Mixed hyperlipidemia (703293783) Mixed hyperlipidemia (E78.2) Added On:10/08 Active confirmed Problem Long-term current use of insulin (240081699) halfway (current) use of insulin (Z79.4) Added On:01/07 Active confirmed Problem Gastroesophageal reflux disease without esophagitis (716815967) Gastroesophageal reflux disease without esophagitis (K21.9) Added On:05/09 Active confirmed Problem COPD - Chronic obstructive pulmonary disease (77038651) Chronic obstructive pulmonary disease, unspecified COPD type (J44.9) Added On:05/09 Active confirmed Problem Body mass index 40+ - severely obese (708842386) BMI 50.0-59.9, adult (Z68.43) Added On:05/09 Active confirmed Problem Elevated liver enzymes level (845823950) Elevated liver enzymes (R74.8) Added On:01/07 Active confirmed Problem Leukocytosis (905080765) Leukocytosis, unspecified type (D72.829) Added On:03/10 Active confirmed Problem Recurrent major depression in remission (49887887) Recurrent major depressive disorder, in partial remission (F33.41) Added On:05/09 Active confirmed Problem Chronic kidney disease due to hypertension (472595684588482) Hypertensive kidney disease (I12.9) Added On:01/07 Active confirmed Problem Primary osteoarthritis (942568846) Primary osteoarthritis involving multiple joints (M89.49) Added On:05/09 Active confirmed Problem Chronic kidney disease stage 3A (disorder) (799947628) Chronic kidney disease, stage 3a (N18.31) Added On:01/07 Active confirmed Problem Body mass index 40+ - morbidly obese (840360184) Body mass index [BMI] 50.0-59.9, adult (Z68.43) Added On:10/08 Active confirmed Plan Of Treatment Pending Test Test Name Order Date MICROALBUMIN, RANDOM URINE (W/CREATININE ) 04/01/2021 LIPID PANEL WITH RATIOS 04/01/2021 COMPREHENSIVE METABOLIC PANEL 04/01/2021 CBC (INCLUDES DIFF/PLT) 04/01/2021 URINALYSIS, COMPLETE W/REFLEX TO CULTURE 04/01/2021 HEMOGLOBIN A1c 04/01/2021 TSH W/REFLEX TO FT4 04/01/2021 ADVANCE CARE PLANNING 08/01/2021 COGNITIVE IMPAIRMENT 08/01/2021 Annual Wellness 08/01/2021 Insurance Providers Payer Name Payer Address Payer Phone Subscriber Number Group Number Insured Name Patient Relationship to Insured Coverage Start Date Coverage End Date [place] [address] [address] [place] [address] [id number] Sam Meier Self - patient is the insured 1 [facility] [address] [place] [address] [phone] [id number] Sam Meier Self - patient is the insured 1 Medical (General) History Medical History History ICD Code abdominal aortic aneurysm: No abnormal liver function tests: No abnormal pap smear: No acid reflux: Yes acute coronary syndrome: No acute myocardial infarction: No adenomatous colon polyp: No adopted: No AIDS/HIV: No alcoholic hepatitis: No allergic rhinitis: Yes allergies, food: Yes alopecia totalis: No anemia: No anxiety: Yes arthritis, psoriatic: Yes asbestosis: No asthma: Yes atrial flutter: No attention deficit disorder: No Back pain: Yes bells palsy: No benign prostatic hyperplasia (BPH): No bladder incontinence: Yes bowel disorders: No breast nodule: No cancer, bladder: No cancer, brain: No cancer, cervical: No cancer, melanoma: No cancer, mouth: No cancer, skin: No cardiac murmur: Yes cerebral aneurysm: No chronic ear infections: Yes chronic pancreatitis: No colostomy: No constipation: No cough, chronic: Yes dementia: No diabetes, type I: No diabetes, type II: Yes diabetic retinopathy: Yes drug abuse: No emphysema: No end-stage renal disease (ERSD): No endometriosis: No epilepsy: No esophageal reflux: Yes essential tremor: No fibrocystic breast disease: No fibromyalgia: No gastric ulcer: Yes glaucoma: Yes graves disease: No heart murmur: Yes hemophilia: No hepatitis C: No herniated disc: Yes hiatal hernia: Yes human immunodeficiency virus (HIV), posi tive: No hyperglycemia: Yes hyperparathyroidism: No hyperthyroidism: No hypoparathyroidism (post-surgical): No incontinence: Yes kidney stones: No lumbar radiculopathy: No lung nodule: No lyme disease: No lymphoma: No memory loss: No migraine headaches: No morbid obesity: Yes narcolepsy: No neuropathy: Yes obsessive-compulsive personality disorde r: Yes osteoporosis: No overactive bladder (OAB): Yes pagets disease: No panic attacks: Yes peptic ulcer disease: Yes peripheral neuropathy: Yes personality disorder: Yes pleural effusion: No polymyalgia rheumatica: No prostate cancer: No pulmonary embolism: No pulmonary hypertension: Yes recurrent sinusitis: Yes renal failure: No retinopathy: No rheumatic heart disease: No rotator cuff tear: No seasonal allergies: Yes shingles: No sickle cell trait: No sjogren syndrome: No spina bifida: No spinal stenosis: No substance abuse: No syphilis: No thrombocytopenia: No transplant, kidney: No ulcerative colitis: No urinary incontinence: No vasculitis: No venous insufficiency: No vertigo: No vitamin D deficiency: No Surgical History Surgery Date(Month/Year) PATIENT HAS HAD 5 EAR SURGERIES ON RIGHT EAR Hospitalization History Reason Date(Month/Year) [facility] 09/20/2019
--- OUTSIDE RECORDS SUMMARY | 2025-02-28 07:23 | XMS_ITS | Encounter Summary ---
Author Organization [facility] Address [address] [place] [address] Phone Care Team Providers Care Registered Phlebotomist Part Time Name Role Phone Rufus De Luna MD Primary Care Provider [phone] Rufus De Luna MD Unavailable Encounter Details Date Type Department Care Team (Late st Contact Info) Description 11/03/2024 Telephone [facility] [address] [place], [place] [phone] Rufus De Luna MD [address] [place], [place] [phone] [email or web address] Social History Tobacco Use Types Packs/Day Years [...] Description 07/10/2025 1:30 PM EDT Office Visit [facility] [address] [place] [address] Rufus De Luna MD [address] [place] [address] documented as of this encounter Visit Diagnoses Not on filedocumented in this encounter Additional Health Concerns Assessment Noted Time PHQ-9 Depression Total Score: 14 022 1:54 PM EST PHQ-2 Depression Total Score: 1 12/18/19 24 4:22 PM EDT documented as of this encounter Care Teams Registered Phlebotomist Part Time Relationship Specialty Start Date End Date Rufus De Luna MD [address] [place] [address] PCP - General Internal Medicine 12/04/21 Rufus De Luna MD [address] [place] [address] Insurance Assigned Provider 06/13/23 documented as of this encounter Additional Source Comments The information contained in this document represents components of the legal health record. It is not the complete legal health record.[facility]
--- OUTSIDE RECORDS SUMMARY | 2025-02-28 07:23 | XMS_ITS | Encounter Summary ---
Author Organization [facility] Address [address] [place] [address] Phone Care Team Providers Care Septic Tank Service Technician Name Role Phone Rufus De Luna MD Primary Care Provider [phone] Rufus De Luna MD Unavailable Encounter Details Date Type Department Care Team (Late st Contact Info) Description 05/06/2024 Transcribe Orders [facility] Specimen Processing [address] [place] [address] Anayeli Parkinson PA-C [address] [place] [address] [email or web address] Social History Tobacco Use Types Packs/Day Years [...] Description 07/10/2025 1:30 PM EDT Office Visit [facility] [address] [place] [address] Rufus De Luna MD [address] [place] [address] [email or web address] documented as of this encounter Visit Diagnoses Not on filedocumented in this encounter Additional Health Concerns Assessment Noted Time PHQ-9 Depression Total Score: 14 022 1:54 PM EST PHQ-2 Depression Total Score: 1 12/18/19 24 4:22 PM EDT documented as of this encounter Care Teams Septic Tank Service Technician Relationship Specialty Start Date End Date Rufus De Luna MD [address] [place] [address] [email or web address] PCP - General Internal Medicine 12/04/21 Rufus De Luna MD [address] [place] [phone] [email or web address] Insurance Assigned Provider 06/13/23 documented as of this encounter Additional Source Comments The information contained in this document represents components of the legal health record. It is not the complete legal health record.[facility]
--- OUTSIDE RECORDS SUMMARY | 2025-02-28 07:24 | XMS_ITS | Encounter Summary ---
Author Organization [facility] Address [address] [place] [address] Phone Care Team Providers Care Education Reviewer Name Role Phone Rufus De Luna MD Primary Care Provider [phone] Rufus De Luna MD Unavailable Reason for Visit * Reason Comments Med Change Request Encounter Details Date Type Department Care Team (Late st Contact Info) Description 01/23/2025 Refill [facility] [address] [place], [place] [phone] Rufus De Luna MD [address] [place] [address] [email or web address] Med Change Request Social History Tobacco Use [...] with others, in a hotel, in a alf, living outside on the street, on a [...] medications are going through workers comp andthe claims adjuster supervisor needs do this PA documented in this encounter Plan of Treatment Upcoming Encounters Date Type Department Care Team (Late st Contact Info) Description 07/10/2025 1:30 PM EDT Office Visit [facility] [address] [place] [address] Rufus De Luna MD [address] [place] [address] documented as of this encounter Visit Diagnoses Diagnosis Primary hypertension Unspecified essential hypertension Dyslipidemia Other and unspecified hyperlipidemia documented in this encounter Additional Health Concerns Assessment Noted Time PHQ-9 Depression Total Score: 21 025 2:51 PM EDT PHQ-2 Depression Total Score: 6 01/03/20 25 2:51 PM EDT documented as of this encounter Care Teams Education Reviewer Relationship Specialty Start Date End Date Rufus De Luna MD [address] [place] [address] PCP - General Internal Medicine 12/04/21 Rufus De Luna MD [address] [place] [address] Insurance Assigned Provider 06/13/23 documented as of this encounter Additional Source Comments The information contained in this document represents components of the legal health record. It is not the complete legal health record.[facility]
--- OUTSIDE RECORDS SUMMARY | 2025-02-28 07:24 | XMS_ITS | Encounter Summary ---
Author Organization [facility] Address [address] [place] [address] Phone Care Team Providers Care Clock Assembler Name Role Phone Rufus De Luna MD Primary Care Provider Rufus De Luna MD Unavailable Reason for Visit * Reason Comments Med Change Request Encounter Details Date Type Department Care Team (Late st Contact Info) Description 02/25/2025 Refill [facility] [address] [place], [place] [phone] Franko Mccord PA-C [address] [place] [address] [email or web address] Med Change Request Social History Tobacco Use [...] with others, in a hotel, in a residential, living outside on the street, on a [...] as of this encounter Progress Notes * Stone Barrera - 02/27/2025 4:22 PM EST ePA for gabapentin submitted 02/27/25 documented in this encounter Plan of Treatment Upcoming Encounters Date Type Department Care Team (Late st Contact Info) Description 07/10/2025 1:30 PM EDT Office Visit [facility] [address] [place], [place] [phone] Rufus De Luna MD [address] [place] [phone] [email or web address] documented as of this encounter Visit Diagnoses Diagnosis Cauda equina compression documented in this encounter Additional Health Concerns Assessment Noted Time PHQ-9 Depression Total Score: 21 025 2:51 PM EDT PHQ-2 Depression Total Score: 6 01/03/20 25 2:51 PM EDT documented as of this encounter Care Teams Clock Assembler Relationship Specialty Start Date End Date Rufus De Luna MD [address] [place] [phone] [email or web address] PCP - General Internal Medicine 12/04/21 Rufus De Luna MD [address] [place] [phone] [email or web address] Insurance Assigned Provider 06/13/23 documented as of this encounter Additional Source Comments The information contained in this document represents components of the legal health record. It is not the complete legal health record.[facility]
--- OUTSIDE RECORDS SUMMARY | 2025-02-28 07:24 | XMS_ITS | Encounter Summary ---
Author Organization [facility] Address [address] [facility] [address] [place] [address] Phone Care Team Providers Care Anime Designer Name Role Phone Rufus De Luna MD Primary Care Provider [phone] Rufus De Luna MD Unavailable Encounter Details Date Type Department Care Team (Late st Contact Info) Description 12/11/2021 Procedure Pass [place] Admitting Dept - Virtual Department [address] [place] [address] Social History Tobacco Use Types Packs/Day Years [...] Description 07/10/2025 1:30 PM EDT Office Visit [facility] [address] [place], [place] [phone] Rufus De Luna MD [address] [place] [address] documented as of this encounter Visit Diagnoses Not on filedocumented in this encounter Additional Health Concerns Infection Onset Date Last Indicated Resolved Time CoV-Risk 02/26/2022 02/26/2022 02/27/2022 9:14 AM EST Influenza 02/26/2022 02/26/2022 03/05/2022 1:22 AM EST CoV-Risk Comment:Per note documentation 01/26/2024 01/26/2024 10:04 AM EST documented as of this encounter Care Teams Anime Designer Relationship Specialty Start Date End Date Rufus De Luna MD [address] [place] [address] PCP - General Internal Medicine 12/04/21 Rufus De Luna MD [address] [place] [address] Insurance Assigned Provider 06/13/23 documented as of this encounter Additional Source Comments The information contained in this document represents components of the legal health record. It is not the complete legal health record.[facility]
--- OUTSIDE RECORDS SUMMARY | 2025-02-28 07:24 | XMS_ITS | Patient Health Record ---
Author Organization [facility] - [address] Address [address] [place] [address] Care Team Providers Care Property Staff Accountant Name Role Phone JULIENNE LINARES Primary Care Provider Reason For Referral No Information Medications Medication SIG (Take, Route, Frequency, Duration) Notes Start Date End Date Status Microzide One tablet Orally Once daily 25MG Active Eplerenone 50 MG 1 tablet Orally Once a day; Duration: 30 day(s) Active HumuLIN R 100 UNIT/ML as directed Injection 125 UNITS BID Active Lipitor 80 MG 1 tablet Orally Once a day; Duration: 30 day(s) Active CeleXA 20 MG 1 tablet Orally Once a day; Duration: 30 day(s) Active Omeprazole 20 MG 1 capsule 30 minutes before morning meal Orally Once a day Active Pantoprazole Sodium 40 MG 1 tablet Orally Once a day; Duration: 30 day(s) Active Losartan Potassium 100 MG 1 tablet Orally Once a day; Duration: 30 day(s) Active Social History Tobacco Use: Social History Observation Description Date Details (start date - stop date) Former Smoker NA - NA Tobacco Use/Smoking Question Answer Notes Are you a former smoker How long has it been since you last smoked? > 10 years Alcohol Screen (Audit-C) Question Answer Notes Did you have a drink containing alcohol in the p ast year? No Points 0 Interpretation Negative Problems Problem Type SNOMED Code ICD Code Onset Dates Problem Status W/U Status Risk Notes Problem Type II diabetes mellitus without complication (077417955) Type 2 diabetes mellitus without complications (E11.9) Active confirmed Problem Long-term current use of insulin (688286643) penitentiary (current) use of insulin (Z79.4) Active confirmed Problem Hyperlipidaemia (51957193) Hyperlipidemia, unspecified hyperlipidemia type (E78.5) Active confirmed Problem Essential hypertension (18909219) Hypertension, unspecified type (I10) Active confirmed Problem Obesity (433252246) Obesity (BMI 35.0-39.9 without comorbidity) (E66.9) Active confirmed Plan Of Treatment No Information Insurance Providers Payer Name Payer Address Payer Phone Subscriber Number Group Number Insured Name Patient Relationship to Insured Coverage Start Date Coverage End Date Medicare of [place] / [facility] [place] [address] [place] [address] [id number] Sam Cast Self - patient is the insured /[facility] [address] [place], [place] [id number] [phone] [id number] Sam Cast Self - patient is the insured Medical (General) History Medical History History ICD Code Hyperlipidemia, unspecified hyperlipidem ia type E78.5 Hypertension, unspecified type I10 type I diabetes gastroesophageal reflux disease (GERD) asthma Surgical History Surgery Date(Month/Year)
[2025-02-28 07:38] LABS: Hematocrit 50.8 % (42.0-52.0); Hemoglobin 15.7 g/dl (14.0-18.0); Imm Gran Abs Auto 0.09 X10*3/uL (0.00-0.03); Imm Gran Pct Auto 1.0 % (0.0-0.4); Lymphocytes Absolute Auto 2.8 X10*3/uL (1.2-4.9); Mean Corpuscular HGB Conc 30.9 g/dl (31.0-36.0); Mean Corpuscular Hemoglobin 27.0 pg (27.0-33.0); Mean Corpuscular Volume 87.3 fL (80.0-98.0); NRBC Abs Auto 0.000 X10*3/uL (0.0-0.012); NRBC Pct Auto 0.0 /100WBC (0.0-0.2); Platelet Count 302 X10*3/uL (160-400); Red Blood Count 5.82 X10*6/uL (4.60-5.80); White Blood Count 8.9 X10*3/uL (4.8-10.8)
[2025-02-28 07:53] LABS: Anion Gap 12 (12-20); Blood Urea Nitrogen 17 mg/dL (9-16); Calcium 9.0 mg/dL (8.4-10.2); Carbon Dioxide 25 mmol/L (22-29); Chloride 108 mmol/L (96-108); Estimated Glomerular Filt Rate > 60; Potassium 4.1 mmol/L (3.3-5.1); Sodium 141 mmol/L (135-145)
== END 2025-02-28 07:21 | disposition home or self-care (01) ==
LOC: HO.MMNH1L 07:20
PROVIDERS: Visit Provider Physician Assistant Medical
DX: R78.81 Bacteremia (principal)
CPT/HCPCS: 36415; 80048; 85025